=== PATIENT | female | born 1990 | race Caucasian/White ===

== ENCOUNTER → 2018-01-19 09:49 | Outpatient (CLI) | payer OTHER, SELFPAY ==
[2018-01-19 11:29] LABS: hCG Titer Quant., Serum 218 mIU/mL (<9 non-preg)
== END ==
PROVIDERS: Visit Provider Obstetrics & Gynecology
DX: N92.6 Irregular menstruation, unspecified (principal)
CPT/HCPCS: 36415; 84702

== ENCOUNTER → 2018-01-22 09:07 | Outpatient (CLI) | payer OTHER, SELFPAY ==
[2018-01-22 13:01] LABS: hCG Titer Quant., Serum 655 mIU/mL (<9 non-preg)
== END ==
PROVIDERS: Visit Provider Obstetrics & Gynecology
DX: O20.0 Threatened abortion (principal); Z3A.00 Weeks of gestation of pregnancy not specified
CPT/HCPCS: 36415; 84702

== ENCOUNTER → 2018-03-20 09:03 | Outpatient (CLI) | payer OTHER, SELFPAY ==
[2018-03-20 11:42] LABS: Free T3 3.2 pg/mL (2.18-3.98); T4 Free Direct 1.02 ng/dL (0.76-1.46); Thyroid Stim Hormone (TSH) 1.11 uIU/mL (0.358-3.74)
[2018-03-20 11:45] LABS: Progesterone Level 7.35 ng/mL (See Comment)
== END ==
PROVIDERS: Visit Provider Obstetrics & Gynecology
DX: Z51.89 Encounter for other specified aftercare (principal)
CPT/HCPCS: 36415; 84144; 84439; 84443; 84481

== ENCOUNTER → 2018-06-17 16:46 | Outpatient (CLI) | payer OTHER, SELFPAY ==
[2018-06-17 16:35] VITALS: BMI 25.0
--- NOTE | 2018-06-17 16:48 | RAD_ITS ---
STUDY: X-RAY - FACIAL BONES REASON FOR STUDY: Female, 28 years old. Trauma TECHNIQUE: 3 view(s) of the facial bones. COMPARISON: None. FINDINGS: Normal bilateral frontozygomatic and zygomatic-temporal arches. Normal bilateral medial and inferior orbital kelly. Normal bilateral orbits. Normal visualized nasal bones. Normal anterior nasal spine. The remaining visualized osseous structures are normal. Normal visualized paranasal sinuses. RAD/Facial Bones min 3 Views IMPRESSION: Normal x-ray examination of the facial bones. Electronically Signed: Tato Beverly MD at 17:35 EST , Service support ,
--- OUTSIDE RECORDS SUMMARY | 2018-08-13 02:54 | XMS RPT_ITS ---
:1990 Author Organization OHIP Care Team Providers Name Role Phone LEODAN TAVERAS III Attending Unavailable Erendira-Jewel, Summer Attending Unavailable Krishna-Jewel, Summer Attending Unavailable Krishna-Jewel, Summer Attending Unavailable Erendira-Jewel, Summer Attending Unavailable Cebul III, Leodan Primary Care Unavailable Albaro Lopez Attending Unavailable Cebul III, Leodan Referring Unavailable Albaro Lopez Attending Unavailable Albaro Lopez Referring Unavailable Cebul III, Leodan Primary Care Unavailable PROBLEMS PROBLEMS DATE TYPE CONDITION / CODE ATTENDING STATUS SOURCE 06/17/2018 Unknown S00.33XA - Albaro Lopez Active [place] [facility] of [facility] nose, initial Hospital encounter / Repository S00.33XA(ICD-10) 04/28/2018 Unknown Z51.89 - Erendira-Jewel, Active [place] Encounter for [facility] other specified Hospital aftercare / Repository Z51.89(ICD-10) 04/28/2018 Unknown O20.0 - Krishna-Jewel, Active [place] Threatened [facility] / Hospital O20.0(ICD-10) Repository 01/27/2018 Unknown N92.6 - Irregular Krishna-Jewel, Active [place] menstruation, [facility] unspecified / Hospital N92.6(ICD-10) Repository PROCEDURES PROCEDURES No Procedure Records FoundRESULTS RESULTS URGENT CARE VISIT Observed: 06/17/2018 Status: F Source: [place] REPORT 5:21 PM [facility] [address] [place] [address] [address] [place] [address] OFFICE VISIT Date of Service: 06/17/18 MR#: [id number] Acct: [id number] Name: KIKO ANNE Rep #: [id number] : 1990 Provider: Albaro GRACIA Age/Sex: 28/F Location[place] [facility] [place] Status: Signed Intake Vital Signs06/17/18 Height 5 ft 2 in Intake Visit Reasons: NOSE INJURY/ FROM DOG Chief Complaint: Injured nose 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 Patient states yesterday while at home her dog jumped up with his face hitting the bridge of her nose. She noted no LOC or nausea or vomiting or nosebleeds at the time of the injury or since. She notes no complaints of neck pain or paresthesias to upper extremities. She notes a small ecchymosis and swelling to the left nasal bridge and is concerned that may be fractured. She otherwise feels fine. She has taken no jexh-wvw-vwbednr products to assist with symptoms. She notes no other associated symptoms no other alleviating or aggravating factors. ROS Const Constitutional: No other (ROS negative x10 other than as noted above) Exam Const General: cooperative, healthy appearing, no acute distress, comfortable Nutritional Appearance: average body habitus Orientation: alert, awake, oriented x3 HENMT Head: normal to inspection Ears: hearing grossly normal bilaterally, external ears normal, TM's normal bilaterally, EAC's normal Nose: external nose normal (Except trace ecchymosis swelling to left lateral nose), nares normal, septum normal, no nasal discharge Face and sinus: normal facial exam, sinuses nontender, face symmetric Throat: no postnasal drainage Other: Facial radiographs taken today reveal no acute fractures per my review, pending radiologist interpretation at the time of this dictation; these results were reviewed with patient in office today and she acknowledges understanding. Eyes General: appearance normal, both eyes and all related structures Neck Neck: normal visual inspection, full ROM Chest Chest palpation AND inspection: normal inspection of the chest Resp Effort AND Inspection: normal respiratory effort, able to speak in complete sentences, symmetric chest movement, no cough Cardio Rate: regular rate Pulses: radial pulses present Skin General: no rashes or lesions noted (See HEENT exam above) Neuro General: alert, awake, oriented x3, gait normal Cognition: normal cognition Speech: speech normal Gait: normal gait Motor: muscle tone normal throughout Sensory Exam: no sensory deficits noted Psych Appearance: grossly normal Mental Status: mental status grossly normal Mood: congruent mood Affect: normal affect Speech and Movement: speech and movement normal Attitude: cooperative Thought Process: normal Thought Content: normal Judgment: judgment good Assessment AND Plan Problems 1. Contusion, nose S00.33XA Plan Facial radiographs taken today reveal no acute fractures per my review, pending radiologist interpretation at the time of this dictation; these results were reviewed with patient in office today and she acknowledges understanding. Rest, ice, Advil/Tylenol as needed for symptomatic relief. Follow-up with ENT in 5-7 days should symptoms persist or any other concerns develop. Patient states acknowledging understanding all the above. This note was generated with [employer] dictation software. It may contain incorrect words, spelling, and punctuation that were not noted in checking the note before signing. Orders Orders: Coding Level of Care Code Off vis,est,level 4 Diagnoses Contusion, nose S00.33XA 06/17/18 1721 <Electronically signed by Albaro GRACIA> Date Albaro GRACIA Cosigner Signature: Date (if applicable) CC: FACIAL BONES MIN 3 Observed: 06/17/2018 Status: F Source: [place] VIEWS 4:48 PM [facility] Imaging Services [address] [place] [address] Facial Bones min 3 Views MR#: [id number] Acct: [id number] Name: KIKO ANNE Rep #: [id number] : 1990 F 28 From: Tato Beverly MD PCP: Leodan Taveras III, MD Status: REG CLI Study: Facial Bones min 3 Views Date of Exam: 06/17/18 Exam# [id number] Ordering Dr: Albaro Lopez STUDY: X-RAY - FACIAL BONES REASON FOR STUDY: Female, 28 years old. Trauma TECHNIQUE: 3 view(s) of the facial bones. COMPARISON: None. FINDINGS: Normal bilateral frontozygomatic and zygomatic-temporal arches. Normal bilateral medial and inferior orbital kelly. Normal bilateral orbits. Normal visualized nasal bones. Normal anterior nasal spine. The remaining visualized osseous structures are normal. Normal visualized paranasal sinuses. RAD/Facial Bones min 3 Views IMPRESSION: Normal x-ray examination of the facial bones. Electronically Signed: Tato Beverly MD at 17:35 EST , Service support , CC: Leodan Taveras III, MD; Albaro GRACIA Mail List Librarian: Signed PROGRESS Observed: 05/07/2018 Status: COMPLETED Source: [place] 4:[address] [facility] RE[facility] HNO ID: [id number] Author: Leodan Taveras III Service: (none) Author Type: Physician Type: Progress Notes Filed: 05/07/2018 6:50 PM Note Text: SUBJECTIVE: This is a 28 year old female that is here today for Chronic Medical Conditions. Exercise/cold induced asthma. 2. She had a miscarriage in January. 3. Labs from [facility] obtained 03/20/18 reviewed including the following TSH 1.11 free T3 3.2 T4 free direct 1.02 progesterone 7.35 PAST MEDICAL HISTORY Diagnosis Date - Reactive airway disease 04/26/2011 SOB with URIs Current Outpatient Prescriptions on File Prior to Visit: albuterol HFA (PROAIR HFA) 90 mcg/actuation inhaler Inhale 2 Puffs as instructed every 6 hours as needed. tretinoin (RETIN-A) 0.05 % cream Apply 1 application to affected area daily at bedtime. tetracycline (SUMYCIN) 250 mg capsule Take 1 capsule by mouth four times daily. (Patient not taking: Reported on 05/07/2018 ) levonorgestrel (MIRENA) 20 mcg/24 hr (5 years) IUD Inserted in office (Patient not taking: Reported on 05/07/2018 ) No current facility-administered medications on file prior to visit. FAMILY HISTORY Problem Relation Age of Onset - Thyroid Mother - Hypertension Mother - Hypertension Father - Hypertension Maternal Grandmother - Coronary Artery Disease Maternal Grandmother - Hypertension Maternal Grandfather - Hypertension Paternal Grandmother - Diabetes Paternal Grandmother - Cancer Paternal Grandmother - Hypertension Paternal Grandfather Social History Substance Use Topics - Smoking status: Never Smoker - Smokeless tobacco: Never Used - Alcohol use No BP 101/82 Pulse 72 Resp 16 Wt 59.9 kg (132 lb) LMP 04/25/2018 (Exact Date) BMI 23.54 kg/m? OBJECTIVE: APPEARANCE Well appearing, alert, in no acute distress, well-hydrated, well nourished. NECK Supple, no adenopathy; thyroid symmetric, normal size, no bruits HEART RRR with normal S1 and S2, no murmurs, no gallops, no JVD appreciated LUNG clear to auscultation SKIN facial acne ASSESSMENT: acute exacerbation of asthma PLAN: continue to use proair inhaler 1-2 puffs every 4 hrs as needed for wheezing/asthma. call office if needed MARION Tinsley MD, III MD CNOV Observed: 05/07/2018 Status: COMPLETED Source: [place] 4:20 PM [facility] KIKO ANNE ([id number]) 1990 F Date Time Provider Department 05/07/18 4:20 PM LEODAN TAVERAS III During your visit today, we recorded the following information about you: Pulse Respiration Blood pressure Weight 72/minute 16/minute 101/82 59.9 kg Last Period 04/25/18 Leodan Taveras III MD 05/07/2018 6:50 PM Signed SUBJECTIVE: This is a 28 year old female that is here today for Chronic Medical Conditions. Exercise/cold induced asthma. 2. She had a miscarriage in January. 3. Labs from [facility] obtained 03/20/18 reviewed including the following TSH 1.11 free T3 3.2 T4 free direct 1.02 progesterone 7.35 PAST MEDICAL HISTORY Diagnosis Date - Reactive airway disease 04/26/2011 SOB with URIs Current Outpatient Prescriptions on File Prior to Visit: albuterol HFA (PROAIR HFA) 90 mcg/actuation inhaler Inhale 2 Puffs as instructed every 6 hours as needed. tretinoin (RETIN-A) 0.05 % cream Apply 1 application to affected area daily at bedtime. tetracycline (SUMYCIN) 250 mg capsule Take 1 capsule by mouth four times daily. (Patient not taking: Reported on 05/07/2018 ) levonorgestrel (MIRENA) 20 mcg/24 hr (5 years) IUD Inserted in office (Patient not taking: Reported on 05/07/2018 ) No current facility-administered medications on file prior to visit. FAMILY HISTORY Problem Relation Age of Onset - Thyroid Mother - Hypertension Mother - Hypertension Father - Hypertension Maternal Grandmother - Coronary Artery Disease Maternal Grandmother - Hypertension Maternal Grandfather - Hypertension Paternal Grandmother - Diabetes Paternal Grandmother - Cancer Paternal Grandmother - Hypertension Paternal Grandfather Social History Substance Use Topics - Smoking status: Never Smoker - Smokeless tobacco: Never Used - Alcohol use No BP 101/82 Pulse 72 Resp 16 Wt 59.9 kg (132 lb) LMP 04/25/2018 (Exact Date) BMI 23.54 kg/m? OBJECTIVE: APPEARANCE Well appearing, alert, in no acute distress, well- hydrated, well nourished. NECK Supple, no adenopathy; thyroid symmetric, normal size, no bruits HEART RRR with normal S1 and S2, no murmurs, no gallops, no JVD appreciated LUNG clear to auscultation SKIN facial acne ASSESSMENT: acute exacerbation of asthma PLAN: continue to use proair inhaler 1-2 puffs every 4 hrs as needed for wheezing/asthma. call office if needed MARION Tinsley MD, III MD Frank A Cebul, III MD 05/07/2018 4:57 PM Signed PLAN: continue to use proair inhaler 1-2 puffs every 4 hrs as needed for wheezing/asthma. call office if needed Leodan Taveras III MD Referring Provider: SELF [200] Allergies As of Date: 05/07/2018 Noted Allergy Reaction MINOCYCLINE 05/13/2016 8 - GI Upset Comments: Nausea and dizziness Date Reviewed: 05/07/2018 Reviewed by: Kate ([facility]) HILARIA Lincoln - Fully Assessed Reason for Visit: Medication Follow-up [270] Primary Visit Diagnosis:Mild intermittent asthma with acute exacerbation [J45.21] Prescriptions as of 05/07/2018 Sig: PROGESTERONE VAGINAL Use vaginally. During cycles * ALBUTEROL SULFATE HFA 90 MCG/* Inhale 2 Puffs as instructed * TRETINOIN 0.05 % TOPICAL CREAM Apply 1 application to affect* TETRACYCLINE 250 MG CAPSULE Take 1 capsule by mouth four * Patient not taking: Reported on 05/07/2018 LEVONORGESTREL 20 MCG/24 HR (* Inserted in office Patient not taking: Reported on 05/07/2018 Problem List As Of Date 05/07/2018 Noted Resolved Reactive airway disease [J45.909] INVALID FOR* Acne [L70.9] INVALID FOR* Irregular menstrual cycle [N92.6] INVALID FOR*04/23/2016 Anxiety [F41.9] INVALID FOR* Other instructions from your clinician: PLAN: continue to use proair inhaler 1-2 puffs every 4 hrs as needed for wheezing/asthma. call office if needed Leodan Taveras III MD Encounter Status:Closed by LEODAN TAVERAS III, MD on 05/07/18 FREE T3 Collected: 03/20/2018 Status: F Source: [place]UAN 9:06 AM [facility] TYPE CODE TESTS RESULT OUT OF RANGE REFERENCE UNITS LAB L501.59159 2.18-3.98 pg/mL Normal FREE T3 3.2 Performed By: #### L501.15355, L501.9520, L506.0400 #### [facility] [address] [place], [address] THYROID STIM HORMONE Collected: 03/20/2018 Status: F Source: JUAN (TSH) 9:06 AM [facility] TYPE CODE TESTS RESULT OUT OF RANGE REFERENCE UNITS LAB L501.9520 0.358-3.74 uIU/mL Normal TSH 1.11 Performed By: #### L501.15847, L501.9520, L506.0400 #### [facility] [address] [place], [address] T4 FREE DIRECT Collected: 03/20/2018 Status: F Source: JUAN 9:06 AM [facility] TYPE CODE TESTS RESULT OUT OF RANGE REFERENCE UNITS LAB L506.0400 0.76-1.46 ng/dL Normal T4 FREE 1.02 DIRECT Performed By: #### L501.66118, L501.9520, L506.0400 #### [facility] [address] [place], [address] PROGESTERONE LEVEL Collected: 03/20/2018 Status: F Source: JUAN 9:06 AM [facility] TYPE CODE TESTS RESULT OUT OF REFERENCE UNITS RANGE LAB L509.4001 See Comment ng/mL Progesterone Normal 7.35 Result Comment: Progesterone Reference Table: UNITS Female: Follicular 0.15 - 1.40 ng/mL Luteal 3.34 - 25.56 ng/mL Mid-luteal 4.44 - 28.03 ng/mL Postmenopausal 0.0 - 0.73 ng/mL : 1st Trimester 11.22 - 90.00 ng/mL 2nd Trimester 25.55 - 89.40 ng/mL 3rd Trimester 48.40 -422.50 ng/mL Performed By: #### L509.4001 #### [facility] [address] [place], [address] HCG TITER QUANT., Collected: 01/22/2018 Status: F Source: JUAN SERUM 9:00 AM [facility] TYPE CODE TESTS RESULT OUT OF RANGE REFERENCE UNITS LAB L700.8000 <9 non-preg mIU/mL High HCG 655 QUANT. Performed By: #### L700.8000 #### [facility] [address] [place], [address] HCG TITER QUANT., Collected: 01/19/2018 Status: F Source: JU[place] SERUM 9:56 AM [facility] TYPE CODE TESTS RESULT OUT OF RANGE REFERENCE UNITS LAB L700.8000 <9 non-preg mIU/mL High HCG 218 QUANT. Performed By: #### L700.8000 #### [facility] [address] [place], [address] ALLERGIES ALLERGIES DATE TYPE / CODE NAME / CODE REACTION SEVERITY SOURCE 06/17/2018 Drug No Known Unknown [place] Allergy/416 Allergies/[id number] [facility] 185471(SN 88(RXNORM) Hospital ED CT) Repository 05/13/2016 DRUG MINOCYCLINE GI UPSET [facility] INGREDI/[address] 639672(SNOM Repository ED CT) ENCOUNTERS ENCOUNTERS ADMIT/DISCHARGE ACCOUNT ADMITTING ENCOUNTER LOCATION SOURCE NUMBER CLASS 06/17/2018 [id number] Ambulatory [facility] ing:MTRAD Repository 06/17/2018/06/17/20 [id number] [facility] [address] Repository 05/07/2018/05/11/20 [id number] Ambulatory [address] Repository 03/20/2018 [id number] [facility] ing:WOBLAB Repository 01/22/2018 [id number] [facility] ing:WOBLAB Repository 01/21/2018 [id number] [facility] ing:LAB Repository 01/19/2018 [id number] [facility] ing:WOBLAB Repository PAYERS PAYERS ENCOUNTER GUARANTOR PAYER SUBSCRIBER SOURCE 06/17/2018 KIKO SAVANNA [facility] [place] [id number] Insurance:Stephany LENZB: Critical access hospital [place]: [id number] [id number] Repository [address]Zfp: ([phone]) Date:0798-58-76NM [phone] () [place] [address]TK: 06/17/2018 Secondary NOT GIVENUNK [place] Insurance:SELF PAY [facility] Number: Effective Repository Date:2018-06-17 06/17/2018 KIKO SAVANNA [facility] [place] [id number] Insurance:CIGNAPolicy CARMELDOB: Critical access hospital Number: [id number], [place] [id number] Repository [address]Kfm: (330) Date:4469-53-87BB [phone] (HP) [place] [address]HV: 06/17/2018 Secondary NOT GIVENUNK [place] Insurance:SELF PAY [facility]: Effective Repository Date:2018-06-17 03/20/2018 KIKO SAVANNA Primary KIKO CORRALES [place] [id number] Insurance:CIGNAPolicy CARMELDOB: Critical access hospital Number: [id number], [place] [id number] Repository [address]Dkv: ([phone]) Date:4822-94-13BE [phone] (HP) [place] [address]MM: 03/20/2018 Secondary NOT GIVENUNK Juan Insurance:SELF PAY [facility] Number: Effective Repository Date:2018-03-20 01/22/2018 [facility] [place] [id number] Insurance:CIGNAPolicy CARMELDOB: Critical access hospital Number: [id number], [place] [id number] Repository [address]Jwj: ([phone]) Date:3573-42-99TO [phone] (HP) 745573AOXZSFXAHJL, [place] [address]RA: 01/22/2018 Secondary NOT GIVENUNK [place] Insurance:SELF PAY [facility] Number: Effective Repository Date:2018-01-22 01/21/2018 [facility] KIKO Martinez [id number] Insurance:CIGNAPolicy CARMELDOB: Critical access hospital Number: [id number], [place] [id number] Repository [address]Dfr: ([phone]) Date:3560-82-61WD [phone] (HP) [place] [address]XE: 01/21/2018 Secondary NOT GIVENUNK [place] Insurance:SELF PAY [facility] Number: Effective Repository Date:2018-01-21 01/19/2018 KIKO CORRALES [place]arl[place] KIKO Martinez [id number] Insurance:Stephany ANNEDOB: Critical access hospital Number: [id number], [place] [id number] Repository [address]Edn: ([phone]) Date:7531-15-48DU [phone] () [id number] [address]SK: 01/19/2018 Secondary NOT GIVENUNK [place] Insurance:SELF PAY [facility] Number: Effective Repository Date:2018-01-19
== END ==
PROVIDERS: Family Provider Family Medicine; PCP Family Medicine; Referring Provider Physician Assistant; Visit Provider Physician Assistant
DX: S00.33XA Contusion of nose, initial encounter (principal)
CPT/HCPCS: 70150

== ENCOUNTER → 2018-10-19 13:33 | Outpatient (CLI) | payer OTHER, SELFPAY ==
[2018-06-17 16:35] VITALS: BMI 25.0
[2018-10-19 18:11] LABS: Progesterone Level 8.25 ng/mL (See Comment)
== END ==
PROVIDERS: Family Provider Family Medicine; PCP Family Medicine; Visit Provider Obstetrics & Gynecology
DX: E28.8 Other ovarian dysfunction (principal); N97.0 Female infertility associated with anovulation
CPT/HCPCS: 36415; 84144

== ENCOUNTER 2018-10-29 19:49 | Emergency (ER) | payer OTHER, SELFPAY ==
[2018-06-17 16:35] VITALS: BMI 25.0
[2018-10-29 19:51] VITALS: BP 128/83; PULSE 75; RESP 18; TEMP 36.7; O2SAT 100; BMI 25.0
--- NOTE | 2018-10-29 19:59 | CT_ITS ---
STUDY: CT BRAIN WITHOUT CONTRAST REASON FOR EXAM: Female, 28 years old. Headache RADIATION DOSAGE (If Supplied By Facility): CTDIvol = ( 44.99 ) mGy, DLP = ( 745.49 ) mGycm TECHNIQUE: Transaxial CT imaging of the brain was performed without administration of intravenous contrast material. Individualized dose optimization techniques were used for this CT. COMPARISON: No relevant priors. FINDINGS: Normal soft tissue structures. Normal calvarium. Normal size ventricles and extra-axial spaces for the patient's age. Normal white matter tracts of the cerebral hemispheres. Normal basal ganglia and thalami. Normal brainstem. Normal cerebellum. There is no intracranial hemorrhage. There are no findings of an acute ischemic infarction. Normal visualized paranasal sinuses. CT/Brain/Head without Contrast IMPRESSION: Normal unenhanced CT scan of the brain. Electronically Signed: Margaret Crandall MD at 20:43 EDT , Service support ,
--- NOTE | 2018-10-29 20:01 | ED.VISSUMM ---
- ER Visit Summary Date of Service: 10/29/18 Chief Complaint: [] History of Present Illness: The patient is a 28 F headache presents to the emergency department headache. Patient was in her normal state of health. She states about 2 hours ago, she had a rather sudden onset headache. States is right-sided behind her eye. She describes a burning across her face. She did have a similar headache about 2 weeks ago that went away on its own. The patient denies any history of migraine. She denies any fevers or chills. She denies any recent trauma. She is currently on infertility medication of progesterone, but has not taken it recently. She denies any neck pain. She denies any weakness or numbness. Physical Examination: Well-appearing patient is in no acute distress. Head is normocephalic, atraumatic. Pupils equal round reactive, extraocular muscles intact. There is no temporal artery tenderness. There is no vesicular rash. Neck supple. Kernig's and Brudzinski's are negative. Heart regular rate and rhythm. Lungs clear, chest nontender. Abdomen soft, nontender, nondistended. Neuro exam displays no focal or lateralizing deficit. 2+ symmetric lower extremity reflexes. No clonus. No ataxia or gait abnormality. Test Results: [] Emergency Department Course and Treatment: The patient is not meningitic or encephalopathic. There is a family history of migraines, but she states that she is never really had one. I did obtain a noncontrast head CT. This is unremarkable. As her headache had started within the past 6 hours, I do feel that this effectively rules her out for subarachnoid. I do not feel that lumbar puncture is necessary. The patient was treated with migraine abortive medications and given Toradol once her noncontrast head CT was normal. She had total resolution of her headache. She is lying in the room smiling easily. I did obtain a CTA though to rule out aneurysm. This is also unremarkable. The patient has had total resolution of symptoms, normal neurologic examination, and normal imaging I do feel that she is safe for outpatient therapy. She is comfortable with this plan of care.] Treatment Plan: [] Disposition: Discharge Impression: 1. Migraine headache This note was generated with [employer] dictation software. It may contain incorrect words, spelling, and punctuation that were not noted in review of the chart prior to signing ED Disposition - Plan for ED Patient: Instructions: ED Headache Migraine Prescriptions: Acetaminophen/Butalbital/Caffe [Fioricet] 1 tab PO Q4H PRN PRN #12 tab PRN Reason: Headache Ondansetron [Zofran Odt] 4 mg PO Q8H PRN PRN #10 tab PRN Reason: Nausea Referrals: Leodan Taveras III, MD [Primary Care Provider] -
[2018-10-29] MEDS: 0.9% Normal Saline 1,000 ML 999 ML IV (20:13)
[2018-10-29] MEDS: proCHLORPERazine 10 MG/2 ML Vial IV (20:13)
[2018-10-29] MEDS: DiphenhydrAMINE 50 MG/ML Syringe IV (20:13)
--- NOTE | 2018-10-29 20:29 | CT_ITS ---
STUDY: CTA OF THE BRAIN REASON FOR EXAM: Female, 28 years old. Headache. AneurysmSCTA - Head RADIATION DOSAGE (If Supplied By Facility): CTDIvol = ( 14.60 ) mGy, DLP = ( 415.06 ) mGycm TECHNIQUE: CT angiography was performed with a multi-detector CT scanner. Data acquisition was obtained from the skull base through the vertex following intravenous administration of 100ML IV Isovue 300. MIP images were reconstructed from the axial data set. Post-processing of the angiographic images was performed, with multiplanar reformation and 3D reconstruction. Individualized dose optimization techniques were used for this CT. COMPARISON: None. FINDINGS: Normal bilateral petrous carotid arteries. Normal right cavernous carotid artery with a normal supraclinoid bifurcation. Normal left cavernous carotid artery with a normal supraclinoid bifurcation. Normal right A1 segments of the anterior cerebral artery. Normal left A1 segments of the anterior cerebral artery. Normal intact anterior communicating artery (ACOM). Normal bilateral A2 segments of the anterior cerebral arteries. Normal right M1 and M2 segments of the middle cerebral arteries, with a normal M1 bifurcation. Normal left M1 and M2 segments of the middle cerebral arteries, with a normal M1 bifurcation. There is non-visualization of the right posterior communicating artery (PCOM). There is non-visualization of the left posterior communicating artery (PCOM). Normal bilateral vertebral arteries. Normal basilar artery with a normal basilar bifurcation. The visualized bilateral superior cerebellar (SCA) arteries are normal. Normal bilateral P1, P2 and visualized P3 segments of the posterior cerebral arteries. There is no demonstrated aneurysm of the paimiut of [place]. There is no demonstrated abnormality of the visualized brain. CT/CTA Head W/WO Contrast IMPRESSION: Normal paimiut of [place] without a demonstrated aneurysm or hemodynamically significant stenosis. Electronically Signed: Margaret Crandall MD at 21:27 EDT , Service support ,
[2018-10-29 20:32] LABS: Absolute Lymphocyte Count 3.28 X10^3/ul (0.83-4.51); Absolute Neutrophil Count 3.8 X10^3/uL (2.0-7.7); Basophil# 0.03 X10^3/uL; Basophil% 0.4 % (0-1); Eosinophils% 1.3 % (0-5); Hematocrit 37.9 % (37-47); Hemoglobin 12.8 g/dl (12.0-15.0); Lymphocyte # 3.28 X10^3/ul (4.0); Lymphocyte % 41.6 % (19-41); Mean Corp Hgb Conc 33.8 g/gl (32-36); Mean Corpuscular Hgb 30.7 pg (27.0-32.0); Mean Corpuscular Volume 90.9 fL (81-99); Mean Platelet Vol. 12.1 fl (6.2-12.0); Monocyte# 0.68 X10^3/uL; Monocyte% 8.6 % (0-10); Neutrophil # 3.79 X10^3/uL (2.7-7.7); Platelet Count 251 K/mm3 (150-450); RBC Distribution Width SD 38.9 fl (35.1-43.9); Red Blood Count 4.17 M/mm3 (4.2-5.4); White Blood Count 7.9 K/mm3 (4.4-11.0)
[2018-10-29 20:34] LABS: POSITIVE COUNT NO; POSITIVE DIFFERENTIAL NO; POSITIVE MORPHOLOGY NO
[2018-10-29 20:45] LABS: Anion Gap 7 (5-15); BUN 9 mg/dL (7-18); BUN/Creat Ratio 9.8 RATIO (10-20); Calcium,Total 8.7 mg/dL (8.5-10.1); Chloride 104 mmol/L (98-107); Creatinine, Serum 0.92 mg/dL (0.55-1.02); EST Glomerular Filtration Rate 78 mL/min (>60); Est Glom Filt Rate - Afr Amer 94 mL/min (>60); Estimated Creatinine Clearance 72.65 ml/min; Glucose 106 mg/dL (74-106); Potassium 3.4 mmol/L (3.5-5.1); Sodium Level 139 mmol/L (136-145)
[2018-10-29 21:31] VITALS: BP 122/78; PULSE 72; RESP 16; O2SAT 98
[2018-10-29] MEDS: Ketorolac 30 MG/ML Syringe IV (21:33)
== END 2018-10-29 21:51 | disposition home or self-care (01) ==
LOC: ED 20:32
PROVIDERS: Emergency Provider Emergency Medicine; Family Provider Family Medicine; PCP Family Medicine
DX: G43.909 Migraine, unspecified, not intractable, without status migrainosus (principal)
CPT/HCPCS: 70450; 70496; 80048; 85025; 96361; 96374; 96375; 99283; J7030; Q9967; A4216

== ENCOUNTER → 2019-04-07 15:32 | Outpatient (CLI) | payer OTHER, SELFPAY ==
[2019-04-07 17:16] LABS: hCG Titer Quant., Serum 3567 mIU/mL (1-3)
[2019-04-09 12:13] LABS: Progesterone Level 10.88 ng/mL (See Comment)
== END ==
PROVIDERS: Visit Provider Obstetrics & Gynecology
DX: N91.2 Amenorrhea, unspecified (principal)
CPT/HCPCS: 36415; 84144; 84702

== ENCOUNTER → 2019-04-20 17:28 | Outpatient (CLI) | payer OTHER, SELFPAY ==
[2019-04-20 22:18] LABS: Chlamydia Trachomatis by PCR Negative (Negative); Neisserai gonorrhoeae by PCR Negative (Negative); Probe Check PASS; Sample Adequacy Control PASS; Specimen Processing Control PASS
== END ==
PROVIDERS: Visit Provider Obstetrics & Gynecology
DX: Z11.3 Encounter for screening for infections with a predominantly sexual mode of transmission (principal); Z34.81 Encounter for supervision of other normal pregnancy, first trimester
CPT/HCPCS: 87491; 87591

== ENCOUNTER → 2019-05-10 11:46 | Outpatient (CLI) | payer OTHER, SELFPAY ==
[2019-05-10 14:31] LABS: Color, Urine Yellow (Yellow); Glucose, Dipstick Normal (Normal); Ketone-Dipstick Negative (Negative); Leukocyte Esterase-Dipstick Negative /ul (Negative); Nitrite-Dipstick Negative (Negative); Occult Blood-Urine Negative /ul (Negative); Protein-Dipstick Negative (Negative); Urine Bilirubin Dipstick Negative (Negative); Urine Clarity Sl. Cloudy (Clear); Urine Urobilinogen Normal (Normal)
[2019-05-10 14:32] LABS: Absolute Lymphocyte Count 1.68 X10^3/uL (0.83-4.51); Absolute Neutrophil Count 5.3 X10^3/uL (2.0-7.7); Basophil# 0.05 X10^3/uL; Basophil% 0.7 % (0-1); Eosinophil# 0.05 X10^3/uL; Eosinophils% 0.7 % (0-5); Hematocrit 37.4 % (37-47); Hemoglobin 12.8 g/dL (12.0-15.0); Lymphocyte # 1.68 X10^3/ul (4.0); Lymphocyte % 22.1 % (19-41); Mean Corp Hgb Conc 34.2 g/dL (32-36); Mean Corpuscular Volume 93.5 fL (81-99); Monocyte% 6.6 % (0-10); NRBC Flagged by Analyzer 0 % (0-5); Neutrophil # 5.29 X10^3/uL (2.7-7.7); Neutrophil % 69.6 % (47-70); Platelet Count 264 K/mm3 (150-450); RBC Distribution Width CV 12.4 % (11.6-14.6); RBC Distribution Width SD 42.6 fl (35.1-43.9); White Blood Count 7.6 K/mm3 (4.4-11.0)
[2019-05-10 14:48] LABS: Amphetamine Urine VISTA NEGATIVE (<1000 ng/mL); Barbiturate Urine VISTA NEGATIVE (< 200 ng/mL); Benzodiazepine Urine VISTA NEGATIVE (< 200 ng/mL); Cocaine Urine VISTA NEGATIVE (< 300 ng/mL); Ecstacy Urine VISTA NEGATIVE (< 500 ng/mL); Methadone Urine VISTA NEGATIVE (< 300 ng/mL); PCP Urine VISTA NEGATIVE (< 25 ng/mL); THC Urine VISTA NEGATIVE (< 50 ng/mL); Vista UDS pH Range 6
[2019-05-11 09:40] LABS: HIV - WCH Non-Reactive (Nonreactive); Hepatitis B Surface Antigen Non-Reactive (Nonreactive); Hepatitis C Antibody Non-Reactive (Nonreactive); Vitamin D,25 Hydroxy 11.6 ng/mL (29.95-100.01)
[2019-05-14 02:37] LABS: Prenatal RPR NONREACTIVE (NONREACTIVE)
== END ==
PROVIDERS: Visit Provider Obstetrics & Gynecology
DX: Z34.81 Encounter for supervision of other normal pregnancy, first trimester (principal)
CPT/HCPCS: 36415; 80307; 81002; 82306; 84443; 85025; 86703; 86762; 86803; 87340

== ENCOUNTER → 2019-09-27 10:11 | Outpatient (CLI) | payer OTHER, SELFPAY ==
[2019-09-27 10:48] LABS: Hematocrit 33.3 % (37-47); Hemoglobin 11.1 g/dL (12.0-15.0); Mean Corp Hgb Conc 33.3 g/dL (32-36); Mean Corpuscular Hgb 31.1 pg (27.0-32.0); Mean Corpuscular Volume 93.3 fL (81-99); Mean Platelet Vol. 11.9 fl (6.2-12.0); Platelet Count 231 K/mm3 (150-450); RBC Distribution Width CV 12.2 % (11.6-14.6); RBC Distribution Width SD 41.2 fl (35.1-43.9); Red Blood Count 3.57 M/mm3 (4.2-5.4); White Blood Count 8.6 K/mm3 (4.4-11.0)
[2019-09-27 11:15] LABS: Glucose Challenge Gest 1H 50g 145 mg/dL (70-140)
[2019-09-27 11:22] LABS: Vitamin D,25 Hydroxy 11.3 ng/mL
== END ==
PROVIDERS: Visit Provider Obstetrics & Gynecology
DX: Z34.83 Encounter for supervision of other normal pregnancy, third trimester (principal); E55.9 Vitamin D deficiency, unspecified
CPT/HCPCS: 36415; 82306; 82950; 85027

== ENCOUNTER → 2019-10-01 06:34 | Outpatient (CLI) | payer OTHER, SELFPAY ==
[2019-10-01 07:41] LABS: Glucose GTT-Gestation. Fasting 71 mg/dL (<105)
== END ==
PROVIDERS: PCP Family Medicine; Referring Provider Obstetrics & Gynecology; Visit Provider Obstetrics & Gynecology
DX: Z36.83 Encounter for fetal screening for congenital cardiac abnormalities (principal); O99.810 Abnormal glucose complicating pregnancy; Z3A.00 Weeks of gestation of pregnancy not specified
CPT/HCPCS: 36415; 82951; 82952

== ENCOUNTER → 2019-10-07 06:54 | Outpatient (CLI) | payer OTHER, SELFPAY ==
[2019-10-07 07:33] LABS: Glucose GTT-Gestation. Fasting 76 mg/dL (<105)
== END ==
PROVIDERS: PCP Family Medicine; Referring Provider Obstetrics & Gynecology; Visit Provider Obstetrics & Gynecology
DX: O99.810 Abnormal glucose complicating pregnancy (principal); Z36.9 Encounter for antenatal screening, unspecified; Z3A.00 Weeks of gestation of pregnancy not specified
CPT/HCPCS: 36415; 82951; 82952

== ENCOUNTER 2019-11-08 12:30 | Outpatient (RCR) | payer OTHER, SELFPAY | END 2019-11-08 23:59 | disposition home or self-care (01) | LOC: DC 12:30 | PROVIDERS: PCP Family Medicine; Visit Provider Obstetrics & Gynecology | DX: Z71.3 Dietary counseling and surveillance (principal); O24.419 Gestational diabetes mellitus in pregnancy, unspecified control; Z3A.00 Weeks of gestation of pregnancy not specified | CPT/HCPCS: 97802 ==

== ENCOUNTER → 2019-11-17 17:21 | Outpatient (CLI) | payer OTHER, SELFPAY | PROVIDERS: Visit Provider Obstetrics & Gynecology | DX: Z36.85 Encounter for antenatal screening for Streptococcus B (principal); Z34.83 Encounter for supervision of other normal pregnancy, third trimester | CPT/HCPCS: 87081 ==

== ENCOUNTER 2019-12-05 07:10 | Inpatient (IN) | payer OTHER, SELFPAY ==
[2019-12-05] VITALS (48 sets, daily range): BP systolic 96–151; BP diastolic 56–96; PULSE 47–97; RESP 18; TEMP 36.2–36.7; O2SAT 90–100
[2019-12-05] MEDS: Lactated Ringers 1,000 ML 50 ML IV (07:30)
[2019-12-05 07:51] LABS: Bedside Glucose 100 mg/dL (70-110)
[2019-12-05 07:55] LABS: Absolute Lymphocyte Count 2.83 X10^3/uL (0.83-4.51); Absolute Neutrophil Count 4.8 X10^3/uL (2.0-7.7); Basophil# 0.03 X10^3/uL; Basophil% 0.4 % (0-1); Eosinophil# 0.15 X10^3/uL; Eosinophils% 1.8 % (0-5); Hematocrit 32.6 % (37-47); Lymphocyte # 2.83 X10^3/ul (4.0); Lymphocyte % 33.9 % (19-41); Mean Corp Hgb Conc 33.7 g/dL (32-36); Mean Corpuscular Hgb 30.6 pg (27.0-32.0); Mean Corpuscular Volume 90.6 fL (81-99); Mean Platelet Vol. 13.5 fl (6.2-12.0); Monocyte# 0.52 X10^3/uL; Monocyte% 6.2 % (0-10); NRBC Flagged by Analyzer 0 % (0-5); Neutrophil # 4.81 X10^3/uL (2.7-7.7); Neutrophil % 57.5 % (47-70); POSITIVE MORPHOLOGY YES; Platelet Count 214 K/mm3 (150-450); RBC Distribution Width CV 13.4 % (11.6-14.6); RBC Distribution Width SD 43.7 fl (35.1-43.9); White Blood Count 8.4 K/mm3 (4.4-11.0)
[2019-12-05] MEDS: Oxytocin 30 units/NS 500 ml 30 UNITS/500 ML IV.SOLN IV (08:04)
[2019-12-05 08:40] LABS: Differential Indicated SCAN CRITERIA MET
[2019-12-05 08:41] LABS: Bedside Glucose 67 mg/dL (70-110)
[2019-12-05 08:41] LABS: Differential Comment SCANNED
--- NOTE | 2019-12-05 09:06 | PCM.HP.OB ---
- Problem List (1) 39 weeks gestation of Status: Acute (2) Gestational diabetes Status: Acute Qualifiers: Gestational diabetes mellitus control: diet-controlled Trimester: third trimester Qualified Code(s): O24.410 - Gestational diabetes mellitus in , diet controlled (3) SGA (small for gestational age), , affecting care of mother, antepartum Status: Acute Qualifiers: Fetus number: single or unspecified fetus Qualified Code(s): O36.5990 - Maternal care for other known or suspected poor growth, unspecified trimester, not applicable or unspecified History Date of Admission: 12/05/19 Final ANISA: 12/10/19 Gestational age: 39 Weeks and 2 Days History of this : This is a 29 year-old, G [2], P 0010, at 39 2/7 weeks gestational age hx GDMA1 and borderline SGA presents for scheduled induction of labor. Medical History: Medical History (This Medical Record has been edited. Action required.) Asthma J45.909 Surgical History: Surgical History (This Medical Record has been edited. Action required.) History of tonsillectomy Z90.89 Allergies No Known Allergies Allergy (Unverified 11/09/18 16:02) Smoking Status: Never smoker Alcohol: None Number of Fetus(es): 1 NST - FHR Rate Baby A Baseline: 135 Variability:: Moderate Accelerations:: 15 x 15 Decelerations:: None NST Reactive:: Yes, Appropriate for gestational age FHR Category:: Category I Uterine Activity:: 4/10 min History Past Pregnancies: Past Pregnancies Delivery Date Name GA/ Weeks Outcome Route Wt Sex Labor Length Anesthesia Delivery Location Provider FOB 12/2017 6 SAB Home Rod Labs: Mom's Labs & Results 12/05/19 12/05/19 12/05/19 07:30 07:30 07:38 WBC 8.4 RBC 3.60 L Hgb 11.0 L Hct 32.6 L MCV 90.6 MCH 30.6 MCHC 33.7 RDW Std Deviation 43.7 RDW Coeff of [place] 13.4 Plt Count 214 MPV 13.5 H Immature Gran % (Auto) 0.200 Neut % (Auto) 57.5 Lymph % (Auto) 33.9 [place] % (Auto) 6.2 Eos % (Auto) 1.8 Baso % (Auto) 0.4 Absolute Neuts (auto) 4.8 Absolute Lymphs (auto) 2.83 Nucleated RBC % 0 Differential Comment SCANNED POC Glucose 100 Blood Type A POSITIVE Antibody Screen NEGATIVE 12/05/19 08:35 WBC RBC Hgb Hct MCV MCH MCHC RDW Std Deviation RDW Coeff of [place]ane Plt Count MPV Immature Gran % (Auto) Neut % (Auto) Lymph % (Auto) [place] % (Auto) Eos % (Auto) Baso % (Auto) Absolute Neuts (auto) Absolute Lymphs (auto) Nucleated RBC % Differential Comment POC Glucose 67 L Blood Type Antibody Screen Course Did the patient receive No care? Labs Blood Type: A RH: POSITIVE RPR/VDRL/Syphilis Nonreactive Rubella status Immune HbSAg Negative Date Done: 05/10/19 Chlamydia Negative Gonorrhea Negative HIV/AIDS Non-Reactive Group B Strep: Negative Current Obstetrical History Gestational Diabetes Yes Incompetent Cervix No Infertility No Macrosomia No Hypertension/Pre-eclampsia No Placenta Previa/Abruption No PTL/PROM No Uterine anomaly No Oligohydramnios No Polyhydramnios No Multiple gestation No Past Medical History Asthma Yes Diabetes No Hypertension No Heart disease No Mitral valve prolapse No Neurologic/Seizure disorder No Migraines Yes Kidney disease No Liver disease No Varicosities No Clotting disorders/Hx of DVT No Thyroid Dysfunction No Other medical diseases No Psychiatric disorders No Major trauma No Abnormal PAP smear No Sleep apnea No Mammogram in the last 2 years No Social History Marital Status: Alleged father Rod Hx Smoking No Smoking Status Never smoker Expected Delivery Method: Spontaneous Vaginal Describe any other labor & delivery plans:: pitocin Number of Visits: 12 Review of Systems Constitutional: Denies: Anorexia Eyes: Denies: Vision Change Cardiovascular: Denies: Chest Pain, Edema Respiratory: Denies: Shortness of Breath Gastrointestinal: Denies: Abdominal Pain, Nausea, Vomiting Gynecological: Reports: - - Denies contractions, leaking fluid or vaginal bleeding. Good movement. Physical Exam Vitals: Vital Signs Temp Pulse BP Pulse Ox 97.1 F L 97 118/81 H 98 12/05/19 07:47 12/05/19 07:23 12/05/19 07:23 12/05/19 07:47 General: Alert, Oriented x3, Cooperative, No apparent distress HEENT: Atraumatic, Normocephalic Cardiovascular: Regular rate, Regular Rhythm Lungs: Clear to auscultation, Normal air movement Abdomen: Soft, Non Tender, Non-Distended, - - Fundus soft, nontender Neurological: Neuro grossly intact Estimated gestational size: Appropriate for gestational size Presentation: Cephalic Cervix Dilation (cm): 4 Station: -3 Effacement (%): 60 - per RN exam Deandra Reyes Assessment/Plan All Active Problems (This Medical Record has been edited. Action required.) 39 weeks gestation of (Acute) Gestational diabetes (Acute) SGA (small for gestational age), , affecting care of mother, antepartum (Acute) This is a 29 year-old, G [2], P [0], at 39 2/7 weeks gestational age, Cat I FHR GDM - FS 100, will monitor per protocol Borderline SGA Will titrate pitocin as tolerated by mother and fetus. Maternal and statuses reassuring. Essential Procedure Criteria Procedure Essential: Yes Criteria Note: On 10/05/2019 the [facility] ([facility]) Public Order signed by [facility] Director Radha Ford M.D., regarding the Management of Non-Essential Surgeries and Procedures for the purpose of preserving Personal Protective Equipment (PPE) and critical hospital capacity and resources within [place] went into effect as of 10/06/2019 at 5:00PM. According to the [facility] Public Order: This action will remain in full force and effect until the State of Emergency declared by the Governor no longer exists or the Director of the [facility] rescinds or modifies this Order.. This [facility] order stated all non-essential or elective surgeries and procedures that utilize PPE should be delayed unless there is undue risk to the current or future health of a patient. After reviewing the aforementioned [facility] Public Order and the patients clinical case, I have determined that the scheduled procedure meets the criteria to go forward. Risk to Patient if Procedure Delayed: Threat to patient's life if surgery or procedure is delayed
[2019-12-05 12:30] LABS: Bedside Glucose 81 mg/dL (70-110)
[2019-12-05] MEDS: Lactated Ringers 500 ML 999 ML IV ×2 (12:33→14:14)
--- NOTE | 2019-12-05 12:35 | PCM.PN.BLA ---
Progress Note LABOR PROGRESS NOTE Contractions intensify. AVSS GEN - NAD, AAO x 3 FHR 125, moderate variability, + accelerations, no decelerations TOCO 3/10 min SVE 4.5/60/-2, soft, midposition A/P: 29yo @ 39 2/7wga, IOL, GDM, Cat I FHR -Amniotomy performed with scant, clear fluid -Continue pitocin as tolerated by mother and fetus -Maternal and statuses reassuring STROKE Vital Signs/Narrative: Vital Signs Temp Pulse BP Pulse Ox 12/05/19 16:40 56 L 109/64 12/05/19 16:26 71 106/59 L 12/05/19 14:31 64 119/59 L 97 12/05/19 14:27 56 L 91 12/05/19 14:23 64 100 12/05/19 14:22 64 90 12/05/19 14:20 50 L 98/59 L 12/05/19 14:18 63 99 12/05/19 14:13 47 L 99/59 L 99 12/05/19 14:07 52 L 99 12/05/19 14:02 49 L 100 12/05/19 13:57 52 L 100 12/05/19 13:52 60 99 12/05/19 13:49 62 96/59 L 98 12/05/19 13:47 71 98 12/05/19 13:44 68 99/60 98 12/05/19 13:42 61 99 12/05/19 13:39 98.1 F 12/05/19 13:38 71 103/56 L 98 12/05/19 13:37 99 12/05/19 13:35 67 107/56 L 97 12/05/19 13:32 69 99 12/05/19 13:28 59 L 113/64 100 12/05/19 13:27 100 12/05/19 13:24 70 118/64 92 12/05/19 13:22 64 98 12/05/19 13:19 73 125/73 H 12/05/19 13:17 73 100 12/05/19 13:14 67 151/73 H 12/05/19 13:12 62 100 12/05/19 13:08 63 126/67 H 12/05/19 13:07 99
[2019-12-05] MEDS: fentaNYL-bupivacaine (epidural) 100 ML BAG EPIDURAL (13:26)
[2019-12-05] MEDS: Oxytocin 30 units/NS 500 ml 30 UNITS/500 ML IV.SOLN 334 UNITS IV (16:14)
--- NOTE | 2019-12-05 16:30 | PCM.OPRPT ---
Problem List (1) 39 weeks gestation of Status: Acute (2) Gestational diabetes Status: Acute Qualifiers: Gestational diabetes mellitus control: diet-controlled Trimester: third trimester Qualified Code(s): O24.410 - Gestational diabetes mellitus in , diet controlled Vaginal Delivery Maternal Presentation: Medically Indicated Induction Method of Induction: Pitocin, Amniotomy Amniotic Membrane Rupture Type: Spontaneous Rupture of Membrane time: 12/05/19 1220h Amniotic Fluid Description: Clear Final ANISA: 12/10/19 Final ANISA Source: US <20 weeks Gestational age: 39 Weeks and 2 Days Date of Procedure: 12/05/19 Pre-Operative Diagnosis: 39 2/7wga, Gestational diabetes, SGA Post-Operative Diagnosis: 39 2/7wga, gestational diabetes, SGA Surgery/ Procedure Performed: Spontaneous Vaginal Delivery Anesthesiologist: Judith Rojas Type of Anesthesia: Epidural Description of Procedure: Patient was FD/+2 station. She pushed over approximately 1 hour 15 minutes to deliver a vigorous female infant with Category II FHR. The was placed on the maternal abdomen and further attended by the nursery personnel. The placenta delivered spontaneously and appeared intact on inspection. A first degree vaginal laceration was repaired with 3-0 Vicryl Rapide with good hemostasis. Sponge and needle counts correct x 2. Presentation: Vertex Placental Delivery Description: Spontaneous Placenta Disposition: [facility] Cord Vessel Description: 3 Vessels Nuchal Cord Compression: Without compression Cord Gases drawn per routine: ABG, VBG Cord Entanglement: None Drain: [place] to straight drain Estimated Blood Loss: 300 ml Infant A gender: Female (1 minute): 8 (5 minute): 9 Episiotomy Description: None Laceration: Midline, Vaginal Extension/lac, 1st degree Medications given after delivery: IV Pitocin Complications: None
[2019-12-05] MEDS: Acetaminophen 325 MG Tablet PO (19:25)
[2019-12-06] VITALS (9 sets, daily range): BP systolic 103–118; BP diastolic 56–65; PULSE 55–77; RESP 16–18; TEMP 36.5–36.8; O2SAT 97
[2019-12-06] MEDS: Acetaminophen 325 MG Tablet PO ×3 (00:55→14:40)
[2019-12-06 06:11] LABS: Bedside Glucose 80 mg/dL (70-110)
--- NOTE | 2019-12-06 06:14 | PCM.PN.OB ---
Patient Problems: Active and Suspected Problems (This Medical Record has been edited. Action required.) 39 weeks gestation of (Acute) Gestational diabetes (Acute) SGA (small for gestational age), , affecting care of mother, antepartum (Acute) Subjective: No issues overnight. Archana is sore, but discomfort is manageable. Denies heavy lochia. She is . Objective: AVSS - Physical Exam Vitals/I&O's: Vital Signs Temp Pulse Resp BP Pulse Ox 97.8 F 67 16 118/65 97 12/06/19 04:29 12/06/19 04:29 12/06/19 04:29 12/06/19 04:29 12/06/19 04:29 Oxygen Delivery Method Room Air Weight: 74.6 kg Body Mass Index (BMI) 30.0 Intake and Output for Last 24 Hours 12/04/19 12/05/19 12/06/19 23:59 23:59 23:59 Intake Total 2316.14 / 2316.14 Output Total 250 / 250 300 / 300 Balance 2066.14 / 2066.14 -300 / -300 General: Alert, Oriented x3, Cooperative, No apparent distress HEENT: Atraumatic, Normocephalic Lungs: Clear to auscultation, Normal air movement Cardiovascular: Regular rate, Regular Rhythm, Normal S1, Normal S2 Abdomen: Soft, Non Tender, Non-Distended, - - Fundus firm and nontender at 1 FW below umbilicus Extremities: No edema, No Calf Tenderness Neurological: Neuro grossly intact Psych/Mental Status: Normal Affect, Appropriate, Alert and oriented to time, place, person, mood and affect Laboratory Results 12/05/19 07:30: WBC 8.4, RBC 3.60 L, Hgb 11.0 L, Hct 32.6 L, MCV 90.6, MCH 30.6, MCHC 33.7, RDW Std Deviation 43.7, RDW Coeff of [place] 13.4, Plt Count 214, MPV 13.5 H, Immature Gran % (Auto) 0.200, Neut % (Auto) 57.5, Lymph % (Auto) 33.9, [place] % (Auto) 6.2, Eos % (Auto) 1.8, Baso % (Auto) 0.4, Absolute Neuts (auto) 4.8, Absolute Lymphs (auto) 2.83, Nucleated RBC % 0, Differential Comment SCANNED 12/05/19 07:30: Blood Type A POSITIVE, Antibody Screen NEGATIVE 12/05/19 07:38: POC Glucose 100 12/05/19 08:35: POC Glucose 67 L 12/05/19 12:26: POC Glucose 81 12/06/19 06:00: POC Glucose 80 Current Medications Acetaminophen (Tylenol) 325 - 650 mg PO Q4H PRN PRN PRN Reason: Pain Score 1-3/10 Last Admin: 12/06/19 06:13 Dose: 650 mg Documented by: Bisacodyl (Dulcolax) 10 mg RECTAL UD PRN PRN Reason: If no BM Dextrose (D50w Syringe) 0 gm IV X1 PRN; Protocol PRN Reason: Hypoglycemia Dibucaine (Dibucaine) 1 applic TOPICAL TID PRN PRN; Protocol PRN Reason: Discomfort Glucagon () 1 mg IM .X1 PRN PRN Reason: Hypoglycemia Hydrocortisone (Hytone) 1 applic TOPICAL TID PRN PRN; Protocol PRN Reason: Discomfort Methylergonovine Maleate (Methergine) 0.2 mg IM X1 PRN PRN Reason: Excess bleeding/uterine atony Ondansetron HCl (Zofran) 4 mg IV Q4H PRN PRN PRN Reason: NAUSEA Senna/Docusate Sodium (Senokot-S, Janee-Colace) 1 - 2 tablet PO DAILY PRN PRN PRN Reason: Constipation Simethicone (Mylicon) 80 mg PO PCHS PRN PRN Reason: Indigestion/Stomach pain Sodium Chloride () 5 - 15 ml IV UD PRN PRN Reason: SALINE FLUSH Medical Necessity - Tobacco Use Smoking Status: Never smoker Assessment/Plan All Active Problems (This Medical Record has been edited. Action required.) 39 weeks gestation of (Acute) Gestational diabetes (Acute) SGA (small for gestational age), , affecting care of mother, antepartum (Acute) This is a 29 year-old, G [2], P [1011], PPD#1 s/p doing well. -hx GDM - Fasting glucose 80 mg/dL this am. d/c monitoring -Routine care - -Rh positive -Consider d/c home later today if infant clear for discharge
--- NOTE | 2019-12-06 06:21 | DCINST_ITS ---
Discharge Diet: No Restrictions Discharge Activity: Return to Normal Activity May resume sexual activity in: 4-6 weeks Lifting Restrictions: 20 lb Additional Instructions: If you experience any of the following, contact your healthcare provider. * Bleeding that soaks a pad every hour for 2 hours * Fever 100.4 or higher * Unrelieved incision or abdominal pain * Swelling, redness, discharge or bleeding from your incision or episiotomy site * Your incision begins to separate * Problems urinating (including inability to urinate or burning while urinating). * Visual changes * Severe headache * Flu-like symptoms * Pain or redness in one of both of your breasts * Pain, warmth, tenderness or swelling in your legs, especially the calf area * Frequent nausea and vomiting * Symptoms of depression or anxiety If you experience any of the following, call 911 or go to the nearest Emergency Room. * Chest pain * Problems breathing * Seizure activity * Partial or complete paralysis of a body part, slurred speech, weakness or drooping of the face, or a sudden inability to walk or hold your balance Allergies/Adverse Reactions: Allergies No Known Allergies Allergy (Unverified 11/09/18 16:02) Medications to take at Discharge Ibuprofen 600 mg PO TID PRN #30 tab 12/06/19 The following prescriptions were given: Ibuprofen 600 mg PO TID PRN #30 tab PRN Reason: Pain Score 1-10/10 Transmission Status: Pending to [facility] Please Follow Up With: Macarena Rodas MD - Telemedicine follow up When: 2-3 weeks Please Follow Up With: Macarena Rodas MD - visit When: 6-8 weeks Primary Care Physician: Leodan Taveras III, MD [Primary Care Provider] - Test Results: Test results from this visit will be discussed in further detail at your follow- up appointment, if applicable.
--- NOTE | 2019-12-06 06:21 | PCM.DCVAG ---
Discharge Diet: No Restrictions Discharge Activity: Return to Normal Activity May resume sexual activity in: 4-6 weeks Lifting Restrictions: 20 lb Additional Instructions: If you experience any of the following, contact your healthcare provider. Bleeding that soaks a pad every hour for 2 hours Fever 100.4 or higher Unrelieved incision or abdominal pain Swelling, redness, discharge or bleeding from your incision or episiotomy site Your incision begins to separate Problems urinating (including inability to urinate or burning while urinating). Visual changes Severe headache Flu-like symptoms Pain or redness in one of both of your breasts Pain, warmth, tenderness or swelling in your legs, especially the calf area Frequent nausea and vomiting Symptoms of depression or anxiety If you experience any of the following, call 911 or go to the nearest Emergency Room. Chest pain Problems breathing Seizure activity Partial or complete paralysis of a body part, slurred speech, weakness or drooping of the face, or a sudden inability to walk or hold your balance Allergies/Adverse Reactions: Allergies No Known Allergies Allergy (Unverified 11/09/18 16:02) Medications to take at Discharge Ibuprofen 600 mg PO TID PRN #30 tab 12/06/19 The following prescriptions were given: Ibuprofen 600 mg PO TID PRN #30 tab PRN Reason: Pain Score 1-10/10 Transmission Status: Pending to [facility] Please Follow Up With: Macarena Rodas MD - Telemedicine follow up When: 2-3 weeks Please Follow Up With: Macarena Rodas MD - visit When: 6-8 weeks Primary Care Physician: Leodan Taveras III, MD [Primary Care Provider] - Test Results: Test results from this visit will be discussed in further detail at your follow-up appointment, if applicable.
[2019-12-06] MEDS: Ibuprofen 600 MG Tablet PO (09:05)
== END 2019-12-06 18:40 | disposition home or self-care (01) | DRG 807 ==
PROVIDERS: Admitting Provider Obstetrics & Gynecology; PCP Family Medicine; Visit Provider Obstetrics & Gynecology
DX: O24.429 Gestational diabetes mellitus in childbirth, unspecified control (principal); Z37.0 Single live birth; O70.0 First degree perineal laceration during delivery; O36.5930 Maternal care for other known or suspected poor fetal growth, third trimester, not applicable or unspecified; J45.909 Unspecified asthma, uncomplicated; O99.52 Diseases of the respiratory system complicating childbirth; O69.1XX0 Labor and delivery complicated by cord around neck, with compression, not applicable or unspecified; Z3A.39 39 weeks gestation of pregnancy
CPT/HCPCS: 59050; 82962; 85025; 86850; 86900; 86901; 99218; J7120; G0378

== ENCOUNTER → 2020-02-02 11:50 | Outpatient (CLI) | payer OTHER, SELFPAY ==
[2020-02-02 17:33] LABS: Chlamydia Trachomatis by PCR Negative (Negative); Neisserai gonorrhoeae by PCR Negative (Negative); Probe Check PASS; Sample Adequacy Control PASS; Specimen Processing Control PASS
== END ==
PROVIDERS: PCP Family Medicine; Visit Provider Obstetrics & Gynecology
DX: Z11.3 Encounter for screening for infections with a predominantly sexual mode of transmission (principal)
CPT/HCPCS: 87491; 87591

== ENCOUNTER 2020-03-15 13:04 | Outpatient (CLI) | payer OTHER, SELFPAY | END 2020-03-15 14:05 | disposition home or self-care (01) | LOC: WPOUT 13:07 → WP 13:07 | PROVIDERS: PCP Family Medicine; Referring Provider Obstetrics & Gynecology; Visit Provider Obstetrics & Gynecology | DX: R63.3 Feeding difficulties (principal) | CPT/HCPCS: 96158; 96159 ==

== ENCOUNTER 2021-08-20 16:11 | Emergency (ER) | payer OTHER, SELFPAY ==
[2021-08-20 16:15] VITALS: BP 97/54; PULSE 94; RESP 17; TEMP 37; O2SAT 100; BMI 26.6
--- NOTE | 2021-08-20 16:34 | EX.ED.DYSGE1 ---
HPI History of Present Illness Chief Complaint: Nausea/Vomiting Informant: patient Narrative Narrative: Patient presents with nausea vomiting during . This is a female who is currently about 10 weeks . With her last , she had nausea vomiting for 7 or 8 months. She did not think it was quite as bad this time. She has been having symptoms for around 3 weeks. She has been taking Phenergan once or twice a day. This does stop the vomiting but it does not help the actual sense of nausea. She is still gaining weight. But she states the last few days have been a little worse. She is not drinking as much. Her urine output is decreased although there is no dysuria. No abdominal pain. No bleeding. Her OB already called in a prescription for Zofran for her. But she referred her in here for IV fluids. Medicine does help her symptoms. Eating tends to make them slightly worse. [facility] Medical History 39 weeks gestation of Acute wheezy bronchitis Asthma Cyst of face Frequent headaches Gestational diabetes Right ankle sprain Right foot sprain Right wrist sprain SGA (small for gestational age), , affecting care of mother, antepartum Sprain of right hand Home Medications cephalexin 500 mg PO Q6 #28 cap 08/20/21 [Rx Last Taken Unknown] cholecalciferol (vitamin D3) [Vitamin D3] 125 mcg PO DAILY 08/20/21 [History Last Taken Unknown] doxylamine-pyridoxine (vit B6) [Diclegis] 1 tab PO BID #30 tab 08/20/21 [Rx Last Taken Unknown] ondansetron 4 mg PO Q8H 08/20/21 [History Last Taken Unknown] no.144-folic acid [] 2 tab PO DAILY 08/20/21 [History Last Taken Unknown] promethazine 12.5 - 25 mg PO Q4H 08/20/21 [History Last Taken Unknown] Allergy/AdvReac Type Severity Reaction Status Date / Time No Known Allergies Allergy Verified 08/20/21 16:12 Family History Grandmother Breast cancer Lung cancer Father Hypertension Mother Hypertension Thyroid disorder Asthma Grandfather Colon cancer Lung cancer Mother Diabetes Sister Depression Surgical History History of tonsillectomy Social History household members: spouse and children housing: house current occupational status: employed current occupation: [employer] pets and animals: Yes Smoking Status: Never smoker alcohol intake: never substance use type: does not use what type of physical activity do you participate in: none do you feel safe at home: Yes ROS ROS ED Constitutional Constitutional ED: Denies chills or fever(s) Eyes Eyes: Denies blurry vision ENT ENT ED: Denies rhinorrhea or sore throat Cardiovascular Cardiovascular: Denies chest pain Respiratory/Chest Respiratory/Chest: Denies cough or dyspnea Gastrointestinal Gastrointestinal: Reports nausea and vomiting; Denies abdominal pain or diarrhea Genitourinary Genitourinary ED: Reports other Details: Decreased urine output but no dysuria. ; Denies dysuria or hematuria Musculoskeletal Musculoskeletal: Denies back pain Integumentary Denies rash Neurologic Neurologic: Denies headache(s) Endocrine Endocrinology: Denies polydipsia or polyuria Allergic/Immunologic Allergic/Immunologic ED: Denies mouth swelling or urticaria EXAM Physical Exam Const Vital Signs: 08/20/21 16:15 Temperature 98.6 F Temperature Source Temporal Pulse Rate 94 Respiratory Rate 17 Blood Pressure 97/54 L Blood Pressure Mean 68 Pulse Ox 100 Oxygen Delivery Method Room Air Positive well nourished and well developed General Appearance ED: well developed and NAD; Negative for cyanotic or diaphoretic HEENT HEENT Narrative: Mucous membranes are still somewhat moist. Negative for trauma or tenderness Eyes General Eye ED: Negative for pale conjunctiva or scleral icterus Neck no JVD Chest Wall inspection of chest normal Resp normal respiratory effort and clear to auscultation bilaterally Effort and Inspection: Negative for pain with movement Auscultation: Negative for rales, rhonchi or wheezes Cardio regular rate and regular rhythm GI normal to inspection, nondistended, normoactive bowel sounds and non-tender Palpation: soft Back/Spine no CVA tenderness Back/Spine Narrative: No CVA or suprapubic tenderness. Extremity General Extremety ED: Negative for tenderness Neuro oriented x3 Sensorium / Orientation: alert Psych mental status grossly normal Skin no rashes or lesions noted MDM MDM MDM Narrative Medical decision making narrative: Patient's electrolytes show no acute process. Her urine does show signs of infection. It is cloudy with leukocyte esterase 10-25 white cells and 3+ bacteria. We will treat this pending culture. I explained to the patient that if her cultures are negative she may be able to stop medicines. We will start her on Keflex. She already has Zofran written by her doctor. I will write for some Diclegis also. She will contact her physician for close follow-up. Lab Data Attestation: I reviewed the patient's lab results. Labs: Laboratory Results - last 24 hr 08/20/21 08/20/21 16:47 16:55 Sodium 136 Potassium 3.7 Chloride 104 Carbon Dioxide 27.0 Anion Gap 5 BUN 12 Creatinine 0.73 Estim Creat Clear Calc 85.03 Est GFR (MDRD) Af Amer 119 Est GFR (MDRD) Non-Af 99 BUN/Creatinine Ratio 16.4 Glucose 87 Calcium 9.6 Urine Color Yellow Urine Clarity Sl. Cloudy Urine pH 6.5 Ur Specific Mcclure 1.020 Urine Protein 15 H Urine Glucose (UA) Normal Urine Ketones 50 H Urine Occult Blood Negative Urine Nitrite Negative Urine Bilirubin Negative Urine Urobilinogen Normal Ur Leukocyte Esterase 100 H Urine RBC 0 SEEN Urine WBC 10-25 SEEN Ur Squamous Epith Cells 5-10 SEEN Urine Bacteria 3+ Urine Mucus 0 SEEN Discharge Plan Triage Chief Complaint: Nausea/Vomiting ED Provider: Delmer Packer Dx/Rx/DC Orders Clinical Impression: Hyperemesis gravidarum, UTI (urinary tract infection) during Instructions: Urinary Tract Infections in Women, ED Hyperemesis Gravidarum Prescriptions: New doxylamine-pyridoxine (vit B6) [Diclegis] 10-10 mg tablet,delayed release (DR/EC) 1 tab PO BID Qty: 30 RF: 0 cephalexin [cephalexin] 500 MG capsule 500 mg PO Q6 Qty: 28 RF: 0 No Action promethazine 25 mg tablet 12.5 - 25 mg PO Q4H RF: 0 ondansetron 4 mg tablet,disintegrating 4 mg PO Q8H RF: 0 cholecalciferol (vitamin D3) [Vitamin D3] 125 mcg (5,000 unit) Tablet 125 mcg PO DAILY RF: 0 400 mcg Tablet,Chewable 2 tab PO DAILY RF: 0 Primary Care Provider: Care Physician,No Primary Referrals: Macarena Bourne MD [STAFF PHYSICIAN] - As soon as possible Care Physician,No Primary [Primary Care Provider] - Disposition Disposition: Home, Self Care
[2021-08-20 16:54] LABS: Mucous, Urine 0 SEEN /hpf (<or=2+); Red Blood Cells-Urine 0 SEEN /hpf (0-5)
[2021-08-20] MEDS: 0.9% Normal Saline 1,000 ML 1000 ML IV (16:55)
[2021-08-20 16:58] LABS: Color, Urine Yellow (Yellow); Glucose, Dipstick Normal (Normal); Ketone-Dipstick 50 mg/dl (Negative); Leukocyte Esterase-Dipstick 100 /ul (Negative); Nitrite-Dipstick Negative (Negative); Occult Blood-Urine Negative /ul (Negative); Protein-Dipstick 15 mg/dl (Negative); Urine Bilirubin Dipstick Negative (Negative); Urine Clarity Sl. Cloudy (Clear); Urine Urobilinogen Normal (Normal); Urine pH 6.5 (5.0 - 8.0)
[2021-08-20] MEDS: Ondansetron 4 MG/2 ML Vial IV (17:00)
[2021-08-20 17:07] LABS: Bacteria 3+ /hpf (None Seen); Squamous Epithelial Cells - UA 5-10 SEEN /hpf (5-10); White Blood Cells 10-25 SEEN /hpf (0-5)
[2021-08-20 17:26] LABS: Anion Gap 5 (5-15); BUN 12 mg/dL (7-18); BUN/Creat Ratio 16.4 RATIO (10-20); Calcium,Total 9.6 mg/dL (8.5-10.1); Chloride 104 mmol/L (98-107); Creatinine, Serum 0.73 mg/dL (0.55-1.02); EST Glomerular Filtration Rate 99 mL/min (>60); Est Glom Filt Rate - Afr Amer 119 mL/min (>60); Estimated Creatinine Clearance 85.03 ml/min; Glucose 87 mg/dL (74-106); Potassium 3.7 mmol/L (3.5-5.1); Sodium Level 136 mmol/L (136-145)
[2021-08-20] MEDS: Cephalexin 250 MG Capsule 500 MG PO (18:01)
[2021-08-20 18:02] VITALS: BP 120/78; PULSE 88; RESP 16; TEMP 36.9; O2SAT 98
== END 2021-08-20 18:05 | disposition home or self-care (01) ==
LOC: ED 16:40
PROVIDERS: Emergency Provider Emergency Medicine; Visit Provider Emergency Medicine
DX: O21.0 Mild hyperemesis gravidarum (principal); Z3A.10 10 weeks gestation of pregnancy; O23.41 Unspecified infection of urinary tract in pregnancy, first trimester
CPT/HCPCS: 80048; 81001; 87086; 87088; 96361; 96374; 99284; J7030; A4216; J2405

== ENCOUNTER 2021-08-22 16:19 | Outpatient (CLI) | payer OTHER, SELFPAY ==
[2021-08-22 16:44] LABS: Anion Gap 6 (5-15); BUN 13 mg/dL (7-18); BUN/Creat Ratio 18.7 RATIO (10-20); Calcium,Total 8.9 mg/dL (8.5-10.1); Chloride 102 mmol/L (98-107); EST Glomerular Filtration Rate 105 mL/min (>60); Est Glom Filt Rate - Afr Amer 127 mL/min (>60); Glucose 78 mg/dL (74-106); Potassium 3.6 mmol/L (3.5-5.1); Sodium Level 135 mmol/L (136-145)
== END 2021-08-22 23:59 | disposition home or self-care (01) ==
PROVIDERS: Visit Provider Obstetrics & Gynecology
DX: O21.0 Mild hyperemesis gravidarum (principal)
CPT/HCPCS: 36415; 80048

== ENCOUNTER 2021-09-07 11:20 | Outpatient (CLI) | payer OTHER, SELFPAY ==
[2021-09-07 12:52] LABS: Ferritin 19 ng/mL (8-252); Iron 47 ug/dL (50-170); Iron Binding Capacity,Total 342 ug/dL (250-450)
== END 2021-09-07 23:59 | disposition home or self-care (01) ==
LOC: WOBLAB 11:20
PROVIDERS: Visit Provider Obstetrics & Gynecology
DX: Z34.82 Encounter for supervision of other normal pregnancy, second trimester (principal); F50.89 Other specified eating disorder
CPT/HCPCS: 36415; 82728; 83540; 83550

== ENCOUNTER → 2021-12-07 | Outpatient (CLI) | payer OTHER, SELFPAY ==
[2021-12-07 09:28] LABS: Hematocrit 30.6 % (37-47); Hemoglobin 10.3 g/dL (12.0-15.0); Mean Corp Hgb Conc 33.7 g/dL (32-36); Mean Corpuscular Hgb 31.9 pg (27.0-32.0); Mean Corpuscular Volume 94.7 fL (81-99); Mean Platelet Vol. 11.4 fl (6.2-12.0); Platelet Count 240 K/mm3 (150-450); RBC Distribution Width CV 12.1 % (11.6-14.6); Red Blood Count 3.23 M/mm3 (4.2-5.4); White Blood Count 7.7 K/mm3 (4.4-11.0)
[2021-12-07 09:53] LABS: Glucose Challenge Gest 1H 50g 145 mg/dL (70-140)
== END | disposition home or self-care (01) ==
LOC: WOBLAB 09:13
PROVIDERS: Visit Provider Obstetrics & Gynecology
DX: Z34.82 Encounter for supervision of other normal pregnancy, second trimester (principal)
CPT/HCPCS: 36415; 82950; 85027

== ENCOUNTER → 2022-01-25 | Outpatient (CLI) | payer OTHER, SELFPAY ==
--- NOTE | 2022-01-25 13:17 | US_ITS ---
STUDY: SECOND AND THIRD TRIMESTER OBSTETRICAL ULTRASOUND - LIMITED REASON FOR EXAM: Female, 31 years old growth -- HX OF COVID LMP: 06/11/2021. PRIOR ULTRASOUND: None. TECHNIQUE: Transabdominal TECHNICAL QUALITY: Adequate. FINDINGS: There is a single intrauterine fetus. The fetus is in a cephalic presentation. There is demonstrated cardiac activity with a heart rate of 144 bpm. There is a normal amniotic fluid volume. The largest amniotic fluid pocket measures 4.3 cm x 4.9 cm. The amniotic fluid index (DOROTHY) is 13.6 cm. The placenta is posterior in location and is not low lying. There are Grade 1 placental changes. The cervix measures 4.1 cm in length. BIOMETRY: BPD: 8.01 cm: 32 weeks, 2 days HC: 30.12 cm: 33 weeks, 3 days AC: 28.88 cm: 33 weeks, 0 days FL: 6.27 cm: 32 weeks, 4 days Age by LMP: 32 weeks, 4 days. ANISA by LMP: 03/18/2022. age by current US: 32 weeks, 6 days. ANISA by current US: 03/16/2022. Estimated weight: 2042 grams, +/- 298 grams, 46 percentile. US/OB Limited With Biometrics IMPRESSION: Single live intrauterine gestation with mean gestational age of 32 weeks and 6 days. Electronically Signed: Darwin Page MD at 14:45 EDT ,
== END | disposition home or self-care (01) ==
LOC: US 13:16
PROVIDERS: Referring Provider Obstetrics & Gynecology; Visit Provider Obstetrics & Gynecology
DX: O98.513 Other viral diseases complicating pregnancy, third trimester (principal); U07.1 COVID-19; Z3A.32 32 weeks gestation of pregnancy
CPT/HCPCS: 76816

== ENCOUNTER → 2022-02-18 | Outpatient (CLI) | payer OTHER, SELFPAY ==
[2022-02-18 11:11] LABS: Absolute Lymphocyte Count 1.57 X10^3/uL (0.83-4.51); Absolute Neutrophil Count 4.9 X10^3/uL (2.0-7.7); Basophil# 0.03 X10^3/uL; Basophil% 0.4 % (0-1); Eosinophil# 0.04 X10^3/uL; Eosinophils% 0.6 % (0-5); Hemoglobin 10.7 g/dL (12.0-15.0); Lymphocyte # 1.57 X10^3/ul (0.83-4.51); Lymphocyte % 22.2 % (19-41); Mean Corp Hgb Conc 33.4 g/dL (32-36); Mean Corpuscular Hgb 31.3 pg (27.0-32.0); Mean Corpuscular Volume 93.6 fL (81-99); Mean Platelet Vol. 11.5 fl (6.2-12.0); Monocyte# 0.45 X10^3/uL; Monocyte% 6.4 % (0-10); NRBC Flagged by Analyzer 0 % (0-5); Neutrophil # 4.93 X10^3/uL (2.7-7.7); Neutrophil % 69.7 % (47-70); Platelet Count 166 K/mm3 (150-450); RBC Distribution Width CV 14.5 % (11.6-14.6); RBC Distribution Width SD 47.8 fl (35.1-43.9); Red Blood Count 3.42 M/mm3 (4.2-5.4); White Blood Count 7.1 K/mm3 (4.4-11.0)
== END | disposition home or self-care (01) ==
PROVIDERS: Referring Provider Obstetrics & Gynecology; Visit Provider Obstetrics & Gynecology
DX: Z34.90 Encounter for supervision of normal pregnancy, unspecified, unspecified trimester (principal); Z3A.35 35 weeks gestation of pregnancy
CPT/HCPCS: 36415; 85025

== ENCOUNTER → 2022-02-22 | Outpatient (CLI) | payer OTHER, SELFPAY | END | disposition home or self-care (01) | LOC: LABSPEC 02-25 09:59 | PROVIDERS: Visit Provider Obstetrics & Gynecology | DX: Z34.90 Encounter for supervision of normal pregnancy, unspecified, unspecified trimester (principal) | CPT/HCPCS: 87081 ==

== ENCOUNTER 2022-02-25 10:47 | Inpatient (IN) | payer OTHER, SELFPAY ==
[2022-02-25] VITALS (17 sets, daily range): BP systolic 87–120; BP diastolic 47–70; PULSE 56–80; RESP 16–18; TEMP 35.8–36.4; O2SAT 16–98; BMI 30.2
[2022-02-25] MEDS: Lactated Ringers 1,000 ML 999 ML IV (10:40)
[2022-02-25] MEDS: Cefazolin 2 GM in 0.9% Normal Saline 100 ML IV (10:48)
[2022-02-25] MEDS: Methylergonovine 0.2 MG/ML Ampul IM (11:01)
--- NOTE | 2022-02-25 11:27 | HP.PCM.OB_ITS ---
HPI - General General Date of Admission: 02/25/22 HPI Narrative KIKO ANNE, is a 32 F who presents with decreased movement, and upon NST evaluation in the office patient found to have a heart rate deceleration and therefore was immediately taken down to labor and delivery and IV started with fluid bolus, FHT 110-120 with absent variability once on the monitor again. After there was another variable deceleration the decision was made for stat . Maternal Data Information ANISA Calculator Estimated Delivery Date Method Current WG Current Estimate 03/18/22 LMP (Certain) 37w 0d PFSH PFSH Medical History 39 weeks gestation of Abnormal Pap smear of cervix Acute wheezy bronchitis Asthma Cyst of face Frequent headaches Gestational diabetes Right ankle sprain Right foot sprain Right wrist sprain SGA (small for gestational age), , affecting care of mother, antepartum Sprain of right hand Home Medications cholecalciferol (vitamin D3) 125 mcg (5,000 unit) tablet (Vitamin D3) 125 mcg PO DAILY 08/20/21 [History Last Taken Unknown] vitamins no.144-folic acid 400 mcg chewable tablet () 2 tab PO DAILY 08/20/21 [History Last Taken Unknown] aspirin 81 mg tablet,delayed release 81 mg PO DAILY 01/18/22 [History Last Taken Unknown] ferrous sulfate 142 mg (45 mg iron) tablet,extended release (Slow Fe) 142 mg PO BID #60 tabs 01/28/22 [Rx Last Taken Unknown] Allergy/AdvReac Type Severity Reaction Status Date / Time No Known Allergies Allergy Verified 02/25/22 10:32 Family History Grandmother Breast cancer Lung cancer Father Hypertension Mother Hypertension Thyroid disorder Asthma Grandfather Colon cancer Lung cancer Mother Diabetes Sister Depression Surgical History History of tonsillectomy Social History household members: spouse and children housing: house current occupational status: employed current occupation: [employer] pets and animals: Yes Smoking Status: Never smoker alcohol intake: never substance use type: does not use what type of physical activity do you participate in: none do you feel safe at home: Yes additional social history: - Rod History 3 Elective abortions Hx Para 1 Spontaneous abortions Hx # Term Pregnancies Ectopic pregnancies Hx # Pregnancies Multiple births # of living children 1 Past Pregnancies Del. Date Name GA/Weeks Outcome Route Bth Weight Infant Gen Labor Lgth Anesthesia Del Locatn Provider FOB 12/05/19 Gretel 39 live - full term 6lbs 1oz Female 12 hours epidural [facility] Dr. Erendira Velasco Delivery Date: 12/05/19 Last Updated by: Valerie Escoto Gestational diabetes, small for gestational age Visit Details Expected Delivery Route/Plan Labor Preferences- CB/BF classes: na labor support person: Rod labor intervention preferences: no specific. prefer minimal intervention pain management options preferred: epidural. cut cord/dad catch: yes /no : yes PP control planned: rodolfo discussed possible routes of delivery and associated risks: discussed possible delivery modalities and possible indications for each including R/B/A of , VAVD, and CS. questions answered. special requests: none OB Flowsheet Initial Weight: Not Recorded Date -?-?-?-?-?-?-?-?-?-?-?-?- EGA Weight BP Urine Prot -?-?-?-?-?-?-?-?-?-?-?-?- Glucose FHR FuHt Pres Dilation -?-?-?-?-?-?-?-?-?-?-?-?- Effaced St Visit Note 01/18/22 -?-?-?-?-?-?-?-?-?-?-?-?- 31w 4d 157 lb 4 oz 108/78 Nega tive -?-?-?-?-?-?-?-?-?-?-?-?- Negative 141 30 -?-?-?-?-?-?-?-?-?-?-?-?- JV- transfer fro [facility] after Dr. Rodas gave notice of leave. She did not pass her one hour gct but was able to do a few weeks of glucose monitoring and was normal. She was unable to keep the 3 hr glucose down. She had covid last week and is scheduled for 32 and 36 week growth scans. (prefers mfm ultrasounds due to h/o iugr and oligo last ) JV- transfer from [facility] after Dr. Rodas gave notice of leave. She did not pass her one hour gct but was able to do a few weeks of glucose monitoring and was normal. She was unable to keep the 3 hr glucose down. She had covid last week and is scheduled for 32 and 36 week growth scans. (prefers mfm ultrasounds due to h/o iugr and oligo last ) TDAP today. start checking glucose again next week. if normal fastings, test again at 36/37 weeks. 02/01/22 -?-?-?-?-?-?-?-?-?-?-?-?- 33w 4d 160 lb 128/78 Negative -?-?-?-?-?-?-?-?-?-?-?-?- Negative 140 34 -?-?-?-?-?-?-?-?-?-?-?-?- SM- no vb lof go od fm noreuglar ctx 02/15/22 -?-?-?-?-?-?-?-?-?-?-?-?- 35w 4d 160 lb 2 oz 118/76 Nega tive -?-?-?-?-?-?-?-?-?-?-?-?- Negative 140 35 -?-?-?-?-?-?-?-?-?-?-?-?- SM- no vb lof go od fm no regular ctx SM- no vb lof good fm no reg ular ctx repeat cbc ordered 02/22/22 -?-?-?-?-?-?-?-?-?-?-?-?- 36w 4d 160 lb 2 oz 100/60 Nega tive -?-?-?-?-?-?-?-?-?-?-?-?- Negative 134 37 Cephalic 2 -?-?-?-?-?-?-?-?-?-?-?-?- 50 -2 JV- no lof , v aginal bleeding or dec fm. normal growth scan. gbs collected 02/25/22 -?-?-?-?-?-?-?-?-?-?-?-?- 37w 0d 160 lb 100/51 105/47 105/47 105/60 105/58 106/63 97/64 -?--?-?-?-?-?-?-?-?-?-?-?- -?-?-?-?-?-?-?-?-?-?-?-?- NST FHR Rate Baby A Baseline: 120 Variability:: Absent Accelerations:: None Decelerations:: Variable NST Reactive:: Non-Reactive FHR Category:: Category II Uterine Activity:: no regular ROS Constitutional Constitutional: Reports systems reviewed and no addt'l complaints, except as documented Eyes Eyes: Denies change in vision ENT HEENT: Reports systems reviewed and no addt'l complaints, except as documented; Denies headache(s) Cardiovascular Cardiovascular: Reports systems reviewed and no addt'l complaints, except as documented; Denies chest pain or dyspnea Respiratory/Chest Respiratory/Chest: Reports systems reviewed and no addt'l complaints, except as documented Gastrointestinal Gastrointestinal: Reports systems reviewed and no addt'l complaints, except as documented; Denies abdominal pain Genitourinary Genitourinary: Reports systems reviewed and no addt'l complaints, except as documented, contractions Details: present (irregular) and movement Details: present; Denies dysuria or genital lesions Musculoskeletal Musculoskeletal: Reports systems reviewed and no addt'l complaints, except as documented Neurologic Neurologic: Reports systems reviewed and no addt'l complaints, except as documented Endocrine Endocrinology: Reports systems reviewed and no addt'l complaints, except as documented Vital Signs Vital Signs Vital Signs: 02/25/22 10:37 02/25/22 10:37 02/25/22 10:39 Pulse Rate 65 72 Pulse Ox 91 02/25/22 10:39 Pulse Rate Pulse Ox 98 Physical Exam Const alert, oriented x3, no apparent distress and healthy appearing HEENT normocephalic and moist oral mucous membranes Head and Scalp: atraumatic Lymph Lymphatic: no lymphadenopathy noted Chest inspection of chest normal Resp normal respiratory effort Cardio regular rate GI normal to inspection, nondistended, normoactive bowel sounds, soft to palpation and non-tender Inspection: gravid Extremity normal to inspection Skin no rashes or lesions noted Psych mental status grossly normal Labs Labs Labs: Blood Type A POSITIVE Antibody Screen NEGATIVE Hct 34.4 % (37-47) L Hgb 11.6 g/dL (12.0-15.0) L Pap Smear Negative Obstetrics US Syphilis Total Ab Non-reactive Rubella IgG Antibody Reactive (Nonreactive) Hep Bs Antigen Non-Reactive (Nonreactive) Chlamydia DNA (MAE) Negative (Negative) Neisseria gonorrhoeae DNA (MAE) Negative (Negative) HIV 1&2 Antibody Non-Reactive (Nonreactive) Glucose 1 Hr 50 gm 145 mg/dL (70-140) H Rhogam given: No Assessment & Plan (1) Abnormal glucose tolerance test during , antepartum: COMMENT: failed 1 hr, unable to keep 3 hr down. monitored glucose for several weeks and normal. (2) COVID: COMMENT: 81mg aspirin, 36 wk US 02/18/22 WNL done at [facility] (3) Supervision of normal : COMMENT: ANISA 06/11/22 boy PC Gretel : Rod (4) : QUALIFIERS: Weeks of gestation: 36 weeks Qualified Code(s): Z3A.36 - 36 weeks gestation of COMMENT: Anatomy US normal (5) Decreased movements in third trimester: COMMENT: stat for heart rate decelerations PLAN: Plan proceeded with stat . cbc t and s coags fibrinogen KB test ordered.
[2022-02-25 11:32] LABS: Hematocrit 34.4 % (37-47); Hemoglobin 11.6 g/dL (12.0-15.0); Mean Corp Hgb Conc 33.7 g/dL (32-36); Mean Corpuscular Hgb 31.3 pg (27.0-32.0); Mean Corpuscular Volume 92.7 fL (81-99); Mean Platelet Vol. 11.9 fl (6.2-12.0); Platelet Count 170 K/mm3 (150-450); RBC Distribution Width CV 14.7 % (11.6-14.6); RBC Distribution Width SD 47.8 fl (35.1-43.9); Red Blood Count 3.71 M/mm3 (4.2-5.4)
--- NOTE | 2022-02-25 11:37 | OP.PCM_ITS ---
Assessment & Plan (1) Abnormal glucose tolerance test during , antepartum: COMMENT: failed 1 hr, unable to keep 3 hr down. monitored glucose for several weeks and normal. (2) COVID: COMMENT: 81mg aspirin, 36 wk US 02/18/22 WNL done at [facility] (3) History of gestational diabetes in prior , currently : (4) : QUALIFIERS: Weeks of gestation: 36 weeks Qualified Code(s): Z3A.36 - 36 weeks gestation of COMMENT: Anatomy US normal (5) Supervision of normal : COMMENT: ANISA 06/11/22 boy PC Gretel : Rod (6) Decreased movements in third trimester: COMMENT: stat for heart rate decelerations absent variability (7) delivery delivered: COMMENT: 37 LTCS SM dec fm FHT decels cat II tracing Maternal Data Information ANISA Calculator Estimated Delivery Date Method Current WG Current Estimate 03/18/22 LMP (Certain) 37w 0d Final ANISA Source: LMP Details Operative Information Date of Procedure: 02/25/22 Pre-Operative Diagnosis: decelerations Post-Operative Diagnosis: same Indications for : Distress Classification: Stat Procedure Type: low transverse patient access coordinator #1: Ruth Jones Type of Anesthesia: General Special Medications: none Antibiotic Given: Ancef 2 grams IV x1 Drain: Aguila to straight drain Estimated Blood Loss: 600 Fluids Replaced: crystalloid Findings Description of Procedure: Patient called into the office this morning with decreased movement and was brought in for an NST. After being on the monitor for several minutes a prolonged deceleration was witnessed into the 80s and therefore patient was taken down immediately to labor and delivery and an IV was started and follow-up heart rate was noted to be in the 110s to 120s but with absent variability. There is another variable deceleration and therefore the decision was made to proceed with immediate delivery. Aguila catheter was placed. The patient was placed in the dorsal supine position with leftward tilt. General anesthesia was induced. Patient was prepped and draped in the normal sterile fashion. Pfannenstiel skin incision was made with the scalpel and carried through to the underlying layer of fascia with the scalpel. Fascia was nicked in the midline and the incision extended laterally. The peritoneum was entered digitally. The incision was stretched and a low transverse uterine incision was made with the scalpel. The infant's head was delivered atraumatically followed by the anterior and posterior shoulders without complication the rest of the infant delivered. The cord was clamped and cut and the infant was handed off to awaiting nurse. The placenta was delivered spontaneously immediately following and was noted to be intact and have a three-vessel cord. Fluid was clear and there were no gross abnormalities seen to the placenta. There were no cord abnormalities seen grossly or entanglements. The baby was noted to be very pale upon delivery. the uterus was exteriorized cleared of all clots and debris, and the incision was closed in a double layer closure using #1 Monocryl. The ovaries and fallopian tubes were noted to be within normal limits. The uterus was returned to the maternal abdomen and gutters were cleared of all clots and debris. rashel placed on the incision for hemoastasis. The peritoneum was closed with 3-0 Monocryl in a running fashion. Fascia was closed with 0 PDS in a running fashion. Subcutaneous tissue was copiously irrigated and the skin was closed with 3-0 Monocryl in a subcuticular fashion. Mepilex dressing was applied without complication. Patient was taken to recovery in stable condition. Presentation: Positive for Vertex Amniotic Membrane Rupture Type: Artificial Amniotic Fluid Description: Clear Placental Delivery Description: Spontaneous Placenta Disposition: [facility] Cord Vessel Description: 3 Vessels Cord Entanglement: None Cord Gases: ABG (pH 7.18 BE -10) and VBG (pH 7.27) Infant A Gender: Male Delayed Cord Clamping: No Complications Risks of Surgery Discussed w/Patient: Bleeding, Infection, Need for Future C- Sections and Injury to surrounding structure(s) including bowel and bladder Vaginal Delivery Complication Complications: None Admit VTE Documentation VTE Present on Admission: No VTE Mechan Device Prophylaxis: SCD's Procedures Urinary/Genital [id number]: [id number] Delivery global pkg
[2022-02-25] MEDS: Oxytocin 30 units/NS 500 ml 30 UNITS/500 ML IV.SOLN 167 UNITS IV (11:45)
[2022-02-25 12:29] LABS: International Normalized Ratio 1.1; Partial Thromboplast Time 27.7 Seconds (24.1-36.2); Prothrombin Time (Protime)PT. 14.1 SECONDS (11.7-14.9)
[2022-02-25 12:30] LABS: Fibrinogen 320 mg/dl (203-444)
[2022-02-25] MEDS: Ketorolac 30 MG/ML Syringe IV ×2 (12:51→18:40)
[2022-02-25] MEDS: Acetaminophen 500 MG Tablet 1000 MG PO ×2 (13:29→20:22)
[2022-02-25] MEDS: HYDROmorphone 1 MG/ML Syringe IV ×3 (13:34→21:57)
[2022-02-25] MEDS: Lactated Ringers 1,000 ML 100 ML IV ×2 (14:27→23:28)
--- NOTE | 2022-02-25 16:00 | CASEMGMT ---
Social Work Labor and Delivery Responded to OB-ERT today. Present for support to the patient/mother of baby's Rod Benites. Baby is 37 weeks gestation and the second child for MOB and father of baby (FOB). Per FOB, a 2 year old daughter Gretel at home. 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 Decision made for delivery. Sat with the FOB during delivery procedure due to MOB receiving general anesthetic, and also present by the FOB during immediate postdelivery care of the , including resuscitation efforts. Emotional support offered to the FOB, and answered questions as able. FOB did take some breaks from the being with baby boy Miguel Angel to go and check on the MOB and give MOB updates. This database report writer approached by MOB's mother at the nurses station asking to see the baby and get some pictures. This database report writer to MOB's room, introducing to self and social work role. FOB at MOB's bedside. Explored with MOB that it is MOB's wish for that Miguel Angel's grandmother/MOB's mom to go and see Miguel Angel and take pictures. Explained due MOB not yet seeing the baby, this database report writer wanted to respect MOB as the mother, and ensure that this is MOB's desire for her baby boy. MOB expressed thanks for this database report writer checking, and agreed that wanted MOB's mom to be with the baby. FOB also voiced agreement. This database report writer assisted MOB's mom with proper PPE and escorted to see baby Miguel Angel. After transport team arrived to take over care of infant, this database report writer touched base with MOB and FOB again to update. MOB voiced that FOB will be going to [place] to be with Miguel Angel. Offered to get directions for the FOB, but FOB declined as knows how to get to the hospital. MOB shared that was up at [place] during with Gretel for MFM, which caused worries during , but that Gretel has been fine since delivery. MOB then commented how this has been smooth (opposite to Gretel's) with the anxiety/worry coming now that Miguel Angel is born. Emotional support offered. Let MOB know this database report writer planned to check in on MOB 02.26.2022 to see how doing. MOB voiced that would be agreeable to this. MOB appropriately tearful during social work interactions today. Plan: Social work to follow for support. -DARIA Webb, GORE CUTTER
[2022-02-25] MEDS: LORazepam 0.5 MG Tablet PO ×2 (17:21→21:56)
--- NOTE | 2022-02-25 18:12 | PCM.PN.BLA ---
Progress Note patient seen in follow up after loss. discussed additional bloodwork would be ordered to evaluate for possible cause of anemia, no maternal evidence of coagulopathy or abruption seen at time of delivery. Patient did have Covid 2 months ago, and had a normal growth US 1 week ago. support provided to family and will draw blood in am.
--- NOTE | 2022-02-25 18:30 | DCINST_ITS ---
Discharge Instructions Diet Discharge Diet: No restrictions Activity Discharge Activity: Return to Normal Activity, May Drive (when pain free and off narcotic pain meds), May Shower and May Take a Tub Bath (in 4 weeks) May resume sexual activity in: 6 weeks Weight Bearing Status: Full weight bearing Lifting Restrictions: under 30 lbs for 6 weeks Dressing / Incision Call your doctor if your incision/area has: Continuous Slow Oozing, Sudden Increased Bleeding, Increased Pain/ Swelling, Increased Redness, Foul Smelling Discharge and - Call your doctor if you observe: Fever of 101 or Higher, Using more than 1 pad per hour, Shortness of breath, Chest pain and Uncontrolled pain Suture Line Care: Avoid Pulling/Pushing and Avoid Pinching/Bending Change Dressing in: 1 week (leave open to air after removed) Remove Dressing in: 1 week (if present) Cleanse incision/area with: Soap & Water and Keep Dressing Clean & Dry Follow Up Care Please Follow Up With: Saritha Hong MD When: Call to make an appointment with your doctor for a postop visit in 2 and 6 weeks. Test Results: Test results from this visit will be discussed in further detail at your follow- up appointment, if applicable. Discharge Plan Admission Admit Date/Time: 02/25/22 10:47 Attending Provider: Saritha Hong Discharge Orders/Prescriptions Prescriptions: New lorazepam [Ativan] 0.5 mg tablet 0.5 mg PO TID PRN (Reason: anxiety) Qty: 45 0RF oxycodone-acetaminophen [Percocet] 5-325 mg tablet 1 tab PO Q6H PRN (Reason: pain) 7 Days Qty: 28 0RF naproxen [naproxen] 500 mg tablet 500 mg PO BID PRN PRN (Reason: Pain) Qty: 30 1RF No Action aspirin 81 mg tablet,delayed release (DR/EC) 81 mg PO DAILY cholecalciferol (vitamin D3) [Vitamin D3] 125 mcg (5,000 unit) Tablet 125 mcg PO DAILY 400 mcg Tablet,Chewable 2 tab PO DAILY Slow Fe 142 mg (45 mg iron) tablet extended release 142 mg PO BID Qty: 60 3RF Disposition Disposition (needs filled in before D/C Order can be placed): Home, Self Care
[2022-02-25] MEDS: 0.9% Saline Lock 10 ML Syringe IV (18:56)
--- NOTE | 2022-02-25 20:28 | NURSING ---
huerta cath discontinued per pt request. pt tolerated well
--- NOTE | 2022-02-26 00:21 | NURSING ---
0000 transport team brought back to mother. bands verified with this RN and member of transport team. mother tearful, requested time alone with infant and . states she will call when she is ready for RN to come into room for photos
[2022-02-26] MEDS: Ketorolac 30 MG/ML Syringe IV ×2 (00:50→06:25)
[2022-02-26] MEDS: Acetaminophen 500 MG Tablet 1000 MG PO ×3 (02:00→14:04)
[2022-02-26 02:13] VITALS: BP 101/55; PULSE 75; RESP 16; TEMP 36.3; O2SAT 97
[2022-02-26 06:24] VITALS: BP 94/53; PULSE 74; RESP 16; TEMP 36.3; O2SAT 97
[2022-02-26] MEDS: 0.9% Saline Lock 10 ML Syringe IV (06:26)
[2022-02-26 07:02] LABS: Hematocrit 28.7 % (37-47); Hemoglobin 9.6 g/dL (12.0-15.0); Mean Corp Hgb Conc 33.4 g/dL (32-36); Mean Corpuscular Hgb 31.6 pg (27.0-32.0); Mean Corpuscular Volume 94.4 fL (81-99); Mean Platelet Vol. 11.4 fl (6.2-12.0); Platelet Count 175 K/mm3 (150-450); RBC Distribution Width CV 14.7 % (11.6-14.6); RBC Distribution Width SD 48.1 fl (35.1-43.9); Red Blood Count 3.04 M/mm3 (4.2-5.4); White Blood Count 9.9 K/mm3 (4.4-11.0)
--- NOTE | 2022-02-26 08:03 | NURSING ---
Pt states she does not want an autopsy completed on , pt asking if [facility] staff can inform [facility] of her decision. updated-will update [place]
[2022-02-26 08:10] VITALS: BP 88/55; PULSE 64; RESP 20; TEMP 36.3; O2SAT 97
[2022-02-26 08:16] LABS: Hemoglobin A1c < 3.5 % (3.8-5.6)
[2022-02-26] MEDS: Senna/Docusate Sodium 1 Tablet PO (11:14)
[2022-02-26 11:18] LABS: Kleihauer-Betke POSITIVE
--- NOTE | 2022-02-26 11:53 | NURSING ---
PHQ-2 not completed as pt. is answering I don't know to most questions asked this am - in regards to pain level, if there is anything else that she needs. Not sure that pt. will answer questions when asked. Discussed this with SW, and she will assess when she goes in to see pt.
--- NOTE | 2022-02-26 12:23 | PCM.PN.OB ---
Subjective Subjective coping appropriately no CP SOB pain controlled, ambulating tolerating po Objective Data Objective Data Vital Signs: Vital Signs Temp Pulse Resp BP Pulse Ox O2 Del Method 97.4 F L 64 20 H 88/55 L 97 Room Air 02/26/22 08:10 02/26/22 08:10 02/26/22 08:10 02/26/22 08:10 02/26/22 08:10 02/26/22 08:10 Oxygen Delivery Method Room Air Weight: 160 lb Body Mass Index (BMI) 30.2 Intake & Output: Intake and Output for Last 24 Hours 02/24/22 02/25/22 02/26/22 23:59 23:59 23:59 Intake Total 3856.00 / 3856.00 695 / 695 Output Total 1800 / 1800 700 / 700 Balance 2056.00 / 2056.00 -5 / -5 Lab / Micro Data Result Diagrams: 02/26/22 06:50 Labs: Laboratory Results - last 24 hr 02/25/22 11:17: PT 14.1, INR 1.1, APTT 27.7, Fibrinogen 320 02/25/22 11:17: Kleihauer-Betke F Hgb POSITIVE H 02/26/22 06:50: WBC 9.9, RBC 3.04 L, Hgb 9.6 L, Hct 28.7 L, MCV 94.4, MCH 31.6, MCHC 33.4, RDW Std Deviation 48.1 H, RDW Coeff of Duane 14.7 H, Plt Count 175, MPV 11.4 02/26/22 06:50: TSH 1.80 02/26/22 06:50: Hemoglobin A1c < 3.5 L ROS Constitutional Constitutional: Reports systems reviewed and no addt'l complaints, except as documented Cardiovascular Cardiovascular: Reports systems reviewed and no addt'l complaints, except as documented Respiratory/Chest Respiratory/Chest: Reports systems reviewed and no addt'l complaints, except as documented Gastrointestinal Gastrointestinal: Reports systems reviewed and no addt'l complaints, except as documented Physical Exam Const alert, oriented x3 and no apparent distress HEENT Head and Scalp: atraumatic Resp normal respiratory effort GI soft to palpation and non-tender Inspection: incision intact, healing well and drainage (none) Bimanual Exam - Vag & Uterus: uterus non-tender Uterus Palpation: uterus fundus firm (below Umbilicus) Assessment & Plan (1) delivery delivered: COMMENT: 37 LTCS SM dec fm FHT decels cat II tracing PLAN: Plan s/p LTCS loss- KB positive 127 ml routine postop care support given for loss, pain medication for pain control
--- NOTE | 2022-02-26 13:50 | CASEMGMT ---
Social Work Labor and Delivery Reason for intervention: Follow up for support regarding OB-ERT on 02.25.2022 with subsequent transfer of baby to [facility] NICU. Social work consults then placed on 02.25.2022 at 1757 for bereavement/ loss. Summary: Spoke with nursing staff and learned that at [facility] on 02.25.2022. Baby Miguel Angel has since been brought back to [facility] for parents to have time with the baby. Spoke with Ariadne Chacon RN about PHQ2 completion. This communications writer plans to explore history of emotional health, so agreed that can address depression screening with patient. Met patient/mother of baby (MOB), father of baby (FOB), and MOB?s father in room. MOB holding baby jerald Michelle. Reintroduced to self and role. Checked in on how MOB, FOB and family are doing. FOB quiet, but when asked admitted to being overwhelmed. MOB reports to not really be sure how feeling right now, and but does feel numb. MOB admits a lot of information has been given, but also going at MOB's pace. This communications writer acknowledged that MOB and family have just gone through so much in an extremely concentrated amount of time. Touched on grief and depression. Explored any history of depression after of Gretel, voicing that if not an okay topic to discuss with others then to let this communications writer know. MOB voiced that has had a counselor in the past and is aware that may need to see a counselor again. Addressed that depression is part of grief, and that both mothers and fathers can be impacted. Discussed with MOB that depression screening is routinely done, which MOB voiced agreement to complete. Asked FOB and MOB?s father to step out for completion. Both did so willingly. During private conversation with MOB reviewed the PHQ9, focusing on feelings prior to loss of baby yesterday. Score is low, in none to minimal range of depression. MOB acknowledges feeling may be different in the last 24 hours. MOB denies any history of, or current thoughts related to suicide or harm to others. No history of self-harm. MOB is future focused. Explored family history of emotional health concerns. 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 MOB reports counseling at [facility] and believes was seeing Trinh. Reports would go back to this agency and will likely work on this in the future. MOB reports her sister has a history of depression and self-harm (but again, MOB denies the self-harm for self). Emotional support, encouragement, reflection, and validation offered. Encouraged self-care and rest. MOB reports to have a good support system from family and some friends. Offered to call hospital divider operator as another outlet for support. MOB stated did not want the divider operator called, that a divider operator was present at [place] and this is enough in MOB?s perspective. Provided MOB with this communications writer?s card in case of any questions in the future, as well as list of counselors, information on parents and grief, online supports for parent grief including online support groups. MOB accepted information. MOB did ask about the home, which this communications writer answered questions. Also broached with MOB to think about how would like to discharge, and hand baby off to the home, what would be most meaningful for the MOB. Left room and let FOB and MOB?s father know can return back to room. MOB?s mom present then. MOB?s parents left the room that had been sitting in and FOB remained on couch. This communications writer sat with FOB, offered condolences, as well as opportunity to talk about anything that wanted to talk about. With social work exploration, this communications writer explored FOB?s experiences with Miguel Angel at [place]. FOB shared about this and expressed that the experience brought back memories and feeling related to FOB?s grandfather dying. Emotional support offered. Explored whether FORita is going to be able to take any time off of work for own grieving. FOB shared that he did leave his job (decision made prior to delivery) so will have some time off. Denies any financial concerns at this time. This communications writer encouraged FOB to seek out support when needed and validated that is okay to express emotions. Broached counseling as an option for support and processing of events and emotions, even for dads. This communications writer offered to call [facility] divider operator if FOB desired, referencing that this communications writer was aware that a divider operator was presented at [place]. FOB reported that not certain how divider operator arrived in [place], but declined another divider operator visit while at [place]. Denies any evangel[place] community in life at this time or growing up. Emotional support, encouragement, reflection, and validation offered to the FOB. Encouraged self-care and rest. Both parents appearing sad, appropriately so. MOB cried off and on, good eye contact, affect constricted. FOB tense, teary eyed but appeared to be holding emotions in. Both MOB and FOB appearing receptive to have some time to talk to where they are currently at after loss of son. Plan: MOB and FOB will discharge home, whether going to their own home or to parents? home for added support. MOB and FOB have been given resources for support in the community, as well as this communications writer's car should have questions about information given. No other services requested or indicated. -DARIA Webb, MILENA
[2022-02-26] MEDS: Naproxen 500 MG Tablet PO (14:05)
[2022-02-26 16:45] VITALS: BP 95/58; PULSE 81; RESP 16; TEMP 36.6; O2SAT 98
[2022-02-26] MEDS: LORazepam 0.5 MG Tablet PO (16:45)
[2022-02-27 14:11] LABS: Toxoplasma Gondii IgG < 3.0 IU/mL (0.0-7.1)
[2022-03-01 06:07] LABS: Dilute Prothrombin Time (dPT) 34.7 sec (0.0-47.6); Dilute Russell Viper Venom 32.2 sec (0.0-47.0); PTT-LA 37.1 sec (0.0-51.9); dPT Confirm Ratio 1.19 Ratio (0.00-1.34)
[2022-03-01 10:52] LABS: Anti-Cardiolipin Ab, IgA, Qn < 9 APL U/mL (0-11); Anti-Cardiolipin Ab, IgG, Qn < 9 GPL U/mL (0-14); Anti-Cardiolipin Ab, IgM, Qn < 9 MPL U/mL (0-12); Beta-2-Glycoprotein I IgA <9 (0-25); Beta-2-Glycoprotein I IgG <9 (0-20); Beta-2-Glycoprotein I IgM <9 (0-32); CMV Acute Antibody IgM < 30.0 AU/mL (0.0-29.9); CMV Antibody IgG < 0.60 U/mL (0.00-0.59); Interpretation Comment: (.); PARVOVIRUS B19 IGG 0.6 index (0.0-0.8); PARVOVIRUS B19 IGM 0.3 index (0.0-0.8); Toxoplasma Gondii IgM < 3.0 AU/mL (0.0-7.9)
--- NOTE | 2022-03-01 15:26 | NURSING ---
Phone call made to Yessi today to check on how she is doing. Reports that she is using Aleve and Tylenol for pain, and that is pretty much working for that. Reports that she is using ativan as needed, and that is helping her as well. She is able to sleep some, and able to eat. Reports that it was great to be able get home to be with Gretel, and that while it doesn't make the hurting stop, it does make the pain better. Went over d/c instructions a little more regarding follow-up in the office and weight-lifting restriction as we had not been able to go over the paper in much detail prior to her leaving on friday. She reported that the office made her follow-up appts for her, and that is done, and that she had prepped for not being able to lift Gretel prior to coming in to hospital. Pt. remains unsure of needs at this point, but sounds hopeful on phone. Encouraged to call here or to office with needs, and/or to seek out [id number] facebook page for support. Will call about 1 month from Miguel Angel's to check in on her as well, and will schedule time to get photos at that time. Pt. agreeable to this.
--- NOTE | 2022-04-08 12:57 | NURSING ---
Yessi called in this am to check on momentos and photos. Reported to Yessi that we are still waiting on edited photos to come back from the school photographer, but that her other items were being packaged up today. Yessi is anxious to get these items, as they are going out of town 04/18, and would like to have the items then. Reports that she has a follow-up appt. with Dr. Hong friday, 04/16, and she would like to stop in to get whatever is available at that time. Will plan to meet with Viridiana for those items. Asked Yessi how she was doing, and she reported I still don't know. Encouraged to call back prn.
== END 2022-02-26 17:45 | disposition home or self-care (01) | DRG 788 ==
LOC: WPOUT 10:48 → WP 10:48
PROVIDERS: Admitting Provider Obstetrics & Gynecology; Visit Provider Obstetrics & Gynecology
DX: O77.9 Labor and delivery complicated by fetal stress, unspecified (principal); O99.814 Abnormal glucose complicating childbirth; O36.8230 Fetal anemia and thrombocytopenia, third trimester, not applicable or unspecified; Z79.82 Long term (current) use of aspirin; Z86.32 Personal history of gestational diabetes; Z86.16 Personal history of COVID-19; Z3A.37 37 weeks gestation of pregnancy; Z37.1 Single stillbirth
CPT/HCPCS: 59025; 59050; 83036; 84443; 85027; 85384; 85460; 85610; 85730; 86146; 86147; 86644; 86645; 86747; 86777; 86778; 86850; 86900; 86901; 99218; J7120; A4216; G0378; J2405

== ENCOUNTER → 2022-04-15 | Outpatient (CLI) | payer OTHER, SELFPAY ==
[2022-04-15 17:17] LABS: T4 Free Direct 0.91 ng/dL (0.76-1.46); Thyroid Stim Hormone (TSH) 0.99 uIU/mL (0.358-3.74)
[2022-04-17 10:55] LABS: Thyroid Peroxidase AB 15 IU/mL (0-34)
== END | disposition home or self-care (01) ==
LOC: LAB 16:20
PROVIDERS: Referring Provider Obstetrics & Gynecology; Visit Provider Obstetrics & Gynecology
DX: E01.0 Iodine-deficiency related diffuse (endemic) goiter (principal)
CPT/HCPCS: 36415; 84439; 84443; 86376

== ENCOUNTER → 2022-04-30 | Outpatient (CLI) | payer OTHER, SELFPAY ==
--- NOTE | 2022-04-30 12:45 | US_ITS ---
STUDY: THYROID ULTRASOUND REASON FOR EXAM: Female, 32 years old. thyromegaly TECHNIQUE: Ultrasound evaluation of the thyroid was performed with real-time and static brownlee-scale imaging. COMPARISON: None. FINDINGS: RIGHT LOBE: The right lobe of the thyroid gland measures 5.1 x 2.1 x 1.6 cm. There is a heterogeneous echotexture. There are no demonstrated solid, cystic or complex lesions. LEFT LOBE: The left lobe of the thyroid gland measures 4.7 x 1.6 x 1.3 cm. cm. There is a heterogeneous echotexture. There is a left lower pole 1.3 x 1.9 x 0.4 cm hypoechoic focus. This could represent hypoechoic nodule or parathyroid tissue. ISTHMUS: The isthmus measures 0.2 cm . The regional lymph nodes are normal. US/Thyroid IMPRESSION: Left lower pole parathyroid versus hypoechoic nodule 1.3 x 1.9 x 0.4 cm. Electronically Signed: Monster Jimenez MD, QUEENIE at 8:26 EDT ,
== END | disposition home or self-care (01) ==
LOC: US 12:44
PROVIDERS: Referring Provider Obstetrics & Gynecology; Visit Provider Obstetrics & Gynecology
DX: E01.0 Iodine-deficiency related diffuse (endemic) goiter (principal)
CPT/HCPCS: 76536

== ENCOUNTER → 2022-05-13 | Outpatient (CLI) | payer OTHER, SELFPAY ==
--- NOTE | 2022-05-13 | FLU_PTH ---
PATIENT: KIKO ANNE LOC: [facility] U#:[id number] AGE/SX: 32/F ROOM: RE05/13/[address]: Dr. Reginaldo Saravia MD : 1990 BED: DIS: 05/13/2022 SPEC #: [id number] RECD: 05/13/22 16:37 STATUS: DIA FELIPE #: [id number] YESIKA: 05/13/22 00:[address]: Reginaldo Sarvaia DEPT: CYTOLOGY RECD BY: Eugenio Chaudhary ENTERED: 05/14/22 08:59 SP TYPE: Fluid OTHR DR: No Primary Care Phys Tissues: A - Thyroid gland, NOS B - Thyroid gland, NOS Procedures: Special Stain Group II Surgery Specimen Level IV Cytospin Fluid HEADER OPERATION: Left thyroid fine needle aspiration PRE-OP DIAGNOSIS: Left thyroid nodule TISSUE SUBMITTED: A - Left lower pole thyroid nodule fluid, B - Left lower pole thyroid nodule x6 slides DIAGNOSIS CYTOLOGY A. Fine needle aspiration, left lower pole thyroid nodule (cytospin and cell block): Negative, consistent with benign follicular/colloid nodule (Wood[place]ine Category II). See comment. B. Fine needle aspiration, left lower pole thyroid nodule (smears): Benign, consistent with benign follicular nodule (Wood[place]ine Category II). See comment. AM:natalie 05/15/2022 COMMENT A & B. The [place] System for thyroid diagnostic categorization was used in the evaluation of this case. The specimen is adequate for evaluation. CYTOLOGY STUDY Slides are reviewed. CYTOLOGY GROSS A - Received is 35 ml of red cloudy fluid labeled with the patient's name and and designated per the requisition as left lower pole thyroid nodule. Submitted for cytology preparation including cell block. B - Received are six smears labeled with the patient's name and designated per the requisition as left lower pole thyroid nodule. Submitted for staining. / natalie 05/14/2022 TC:5 CPT: 85625, 09529 x2
== END | disposition home or self-care (01) ==
LOC: LABSPEC 16:44
PROVIDERS: Visit Provider Surgery
DX: E04.1 Nontoxic single thyroid nodule (principal)
CPT/HCPCS: 88108; 88305; 88313

== ENCOUNTER → 2022-05-24 | Outpatient (CLI) | payer OTHER, SELFPAY ==
[2022-05-24 12:20] LABS: NATERA MAILED SPECIMEN
== END | disposition home or self-care (01) ==
LOC: LAB 11:17
PROVIDERS: Referring Provider Obstetrics & Gynecology; Visit Provider Obstetrics & Gynecology
DX: Z87.59 Personal history of other complications of pregnancy, childbirth and the puerperium (principal)
CPT/HCPCS: 36415

== ENCOUNTER → 2022-10-31 | Outpatient (CLI) | payer OTHER, SELFPAY ==
[2022-10-31 18:46] LABS: hCG Titer Quant., Serum < 1 mIU/mL (1-3)
== END | disposition home or self-care (01) ==
LOC: LAB 17:42
PROVIDERS: Referring Provider Obstetrics & Gynecology; Visit Provider Obstetrics & Gynecology
DX: N91.2 Amenorrhea, unspecified (principal)
CPT/HCPCS: 36415; 84702

== ENCOUNTER → 2022-11-04 | Outpatient (CLI) | payer OTHER, SELFPAY ==
[2022-11-04 18:37] LABS: hCG Titer Quant., Serum < 1 mIU/mL (1-3)
== END | disposition home or self-care (01) ==
LOC: LABSPEC 16:40
PROVIDERS: Referring Provider Nurse Practitioner Women's Health; Visit Provider Nurse Practitioner Women's Health
DX: N91.2 Amenorrhea, unspecified (principal)
CPT/HCPCS: 36415; 84702

== ENCOUNTER → 2023-01-12 | Outpatient (CLI) | payer OTHER, SELFPAY ==
[2023-01-12 08:29] LABS: hCG Titer Quant., Serum 122 mIU/mL (1-3)
== END | disposition home or self-care (01) ==
LOC: LAB 07:51
PROVIDERS: Referring Provider Obstetrics & Gynecology; Visit Provider Obstetrics & Gynecology
DX: N91.2 Amenorrhea, unspecified (principal)
CPT/HCPCS: 36415; 84702

== ENCOUNTER → 2023-01-14 | Outpatient (CLI) | payer OTHER, SELFPAY ==
[2023-01-14 08:12] LABS: hCG Titer Quant., Serum 154 mIU/mL (1-3)
== END | disposition home or self-care (01) ==
LOC: LAB 06:06
PROVIDERS: Referring Provider Obstetrics & Gynecology; Visit Provider Obstetrics & Gynecology
DX: N91.2 Amenorrhea, unspecified (principal)
CPT/HCPCS: 36415; 84702

== ENCOUNTER → 2023-01-14 | Outpatient (CLI) | payer OTHER, SELFPAY ==
--- NOTE | 2023-01-14 11:21 | US_ITS ---
INDICATION: Bleeding. viabiity/ectopic STAT -- Call Dr. Hong [phone] with results EXAMINATION: Ultrasound US OB Transvaginal TECHNIQUE: Transabdominal pelvic ultrasound was performed. Grayscale, spectral waveform, and color flow Doppler evaluation of the adnexa. COMPARISON: No relevant prior comparison study available LMP: [December 19, 2022 Beta-hC FINDINGS: UTERUS: 7.2 x 5.4 x 5.0 cm. The endometrial stripe measures 6.1 mm. There is no intrauterine visualized. RIGHT OVARY: 3.0 x 1.2 x 2.7 cm. Normal. LEFT OVARY: 2.7 x 1.5 x 2.4 cm. There is a corpus luteal cyst within the left ovary. The Doppler flow to the left ovary is within normal limits. FREE FLUID: None. US/Transvaginal w/Preg US IMPRESSION: Within normal limits pelvic ultrasound with no intrauterine identified. Electronically Signed: Blanca Lora MD at 12:19 EDT ,
== END | disposition home or self-care (01) ==
LOC: US 11:20
PROVIDERS: Referring Provider Obstetrics & Gynecology; Visit Provider Obstetrics & Gynecology
DX: O20.0 Threatened abortion (principal); Z3A.00 Weeks of gestation of pregnancy not specified
CPT/HCPCS: 76817

== ENCOUNTER → 2023-01-16 | Outpatient (CLI) | payer OTHER, SELFPAY ==
[2023-01-16 10:36] LABS: hCG Titer Quant., Serum 135 mIU/mL (1-3)
[2023-01-19 13:06] LABS: Anti-Cardiolipin Ab, IgA, Qn < 9 APL U/mL (0-11); Anti-Cardiolipin Ab, IgG, Qn < 9 GPL U/mL (0-14); Anti-Cardiolipin Ab, IgM, Qn < 9 MPL U/mL (0-12); Beta-2-Glycoprotein I IgA <9 (0-25); Beta-2-Glycoprotein I IgG <9 (0-20); Beta-2-Glycoprotein I IgM <9 (0-32); Dilute Prothrombin Time (dPT) 37.8 sec (0.0-47.6); Dilute Russell Viper Venom 38.6 sec (0.0-47.0); Interpretation Comment: (.); PTT-LA 35.1 sec (0.0-43.5); dPT Confirm Ratio 0.97 Ratio (0.00-1.34)
[2023-01-20 10:44] LABS: hCG Titer Quant., Serum 233 mIU/mL (1-3)
== END | disposition home or self-care (01) ==
PROVIDERS: Referring Provider Obstetrics & Gynecology; Visit Provider Obstetrics & Gynecology
DX: O20.0 Threatened abortion (principal); Z3A.00 Weeks of gestation of pregnancy not specified; O26.20 Pregnancy care for patient with recurrent pregnancy loss, unspecified trimester
CPT/HCPCS: 36415; 84702; 86146; 86147

== ENCOUNTER → 2023-01-22 | Outpatient (CLI) | payer OTHER, SELFPAY ==
--- NOTE | 2023-01-22 12:13 | US_ITS ---
STUDY: FIRST TRIMESTER OBSTETRICAL ULTRASOUND REASON FOR EXAM: Female, 32 years old incomplete LMP: December 28, 2022. TECHNIQUE: Transvaginal TECHNICAL QUALITY: Adequate. PRIOR ULTRASOUND: Comparison is made with prior study dated January 14, 2023. FINDINGS: There is no demonstrated intrauterine gestational sac. There is no demonstrated yolk sac. The placenta is non-visualized. There is no demonstrated embryo ( pole). The estimated gestation age (EGA) by LMP is 3 weeks, 4 days. The estimated date of delivery (ANISA) by LMP is October 04, 2023. The uterus measures 7.4 cm x 5.5 cm x 4.9 cm. The endometrium measures 7 mm. There is no demonstrated uterine fibroid. The cervix is closed. The right ovary measures 2.4 cm x 2 cm x 1.6 cm. There is no right ovarian cyst. There is no visualized right adnexal mass or complex lesion. The left ovary measures 3.2 cm x 1.8 cm x 1.5 cm. There is no left ovarian cyst. There is no visualized left adnexal mass or complex lesion. There is no fluid in the cul de sac. US/Transvaginal w/Preg US IMPRESSION: No intrauterine gestation is seen. Electronically Signed: Darwin Page MD at 13:15 EDT ,
[2023-01-22 12:30] LABS: hCG Titer Quant., Serum 321 mIU/mL (1-3)
== END | disposition home or self-care (01) ==
LOC: OPUS 10:14
PROVIDERS: Referring Provider Obstetrics & Gynecology; Visit Provider Obstetrics & Gynecology
DX: O03.4 Incomplete spontaneous abortion without complication (principal)
CPT/HCPCS: 76817; 84702

== ENCOUNTER → 2023-01-23 | Outpatient (CLI) | payer OTHER, SELFPAY ==
[2023-01-23 11:02] LABS: Absolute Lymphocyte Count 2.41 X10^3/uL (0.83-4.51); Absolute Neutrophil Count 3.6 X10^3/uL (2.0-7.7); Basophil# 0.06 X10^3/uL; Basophil% 0.9 % (0-1); Eosinophil# 0.12 X10^3/uL; Eosinophils% 1.8 % (0-5); Hematocrit 37.2 % (37-47); Hemoglobin 12.4 g/dL (12.0-15.0); Lymphocyte # 2.41 X10^3/ul (0.83-4.51); Lymphocyte % 35.9 % (19-41); Mean Corp Hgb Conc 33.3 g/dL (32-36); Mean Corpuscular Hgb 30.3 pg (27.0-32.0); Mean Platelet Vol. 11.6 fl (6.2-12.0); Monocyte# 0.49 X10^3/uL; Monocyte% 7.3 % (0-10); NRBC Flagged by Analyzer 0 % (0-5); Neutrophil # 3.62 X10^3/uL (2.7-7.7); Platelet Count 272 K/mm3 (150-450); RBC Distribution Width CV 12.1 % (11.6-14.6); RBC Distribution Width SD 40.2 fl (35.1-43.9); Red Blood Count 4.09 M/mm3 (4.2-5.4); White Blood Count 6.7 K/mm3 (4.4-11.0)
[2023-01-23 11:44] LABS: AST(SGOT) 17 U/L (15-37); Alanine Aminotransfer ALT/SGPT 17 U/L (13-56); Albumin, Serum 3.9 g/dL (3.2-5.0); Alkaline Phosphatase 82 U/L (45-117); Anion Gap 4 (5-15); BUN 8 mg/dL (7-18); Calcium,Total 8.9 mg/dL (8.5-10.1); Chloride 105 mmol/L (98-107); Creatinine, Serum 0.73 mg/dL (0.55-1.02); EST Glomerular Filtration Rate 99 mL/min (>60); Est Glom Filt Rate - Afr Amer 119 mL/min (>60); Glucose 96 mg/dL (74-106); Potassium 3.9 mmol/L (3.5-5.1); Protein, Total 7.9 g/dL (6.4-8.2); Sodium Level 137 mmol/L (136-145)
[2023-01-23 11:46] LABS: hCG Titer Quant., Serum 407 mIU/mL (1-3)
== END | disposition home or self-care (01) ==
LOC: PAVLAB 10:35
PROVIDERS: Referring Provider Obstetrics & Gynecology; Visit Provider Obstetrics & Gynecology
DX: O20.0 Threatened abortion (principal); Z3A.00 Weeks of gestation of pregnancy not specified
CPT/HCPCS: 36415; 80053; 84702; 85025

== ENCOUNTER → 2023-01-26 | Outpatient (CLI) | payer OTHER, SELFPAY ==
[2023-01-26 13:12] LABS: hCG Titer Quant., Serum 474 mIU/mL (1-3)
== END | disposition home or self-care (01) ==
LOC: LAB 11:35
PROVIDERS: Visit Provider Obstetrics & Gynecology
DX: O20.0 Threatened abortion (principal); Z3A.00 Weeks of gestation of pregnancy not specified
CPT/HCPCS: 36415; 84702

== ENCOUNTER → 2023-01-29 | Outpatient (CLI) | payer OTHER, SELFPAY ==
[2023-01-29 09:10] LABS: hCG Titer Quant., Serum 361 mIU/mL (1-3)
== END | disposition home or self-care (01) ==
LOC: LAB 08:00
PROVIDERS: Referring Provider Obstetrics & Gynecology; Visit Provider Obstetrics & Gynecology
DX: O20.0 Threatened abortion (principal); Z3A.00 Weeks of gestation of pregnancy not specified
CPT/HCPCS: 36415; 84702

== ENCOUNTER → 2023-02-05 | Outpatient (CLI) | payer OTHER, SELFPAY ==
[2023-02-05 09:04] LABS: hCG Titer Quant., Serum 154 mIU/mL (1-3)
== END | disposition home or self-care (01) ==
LOC: LAB 08:01
PROVIDERS: Referring Provider Obstetrics & Gynecology; Visit Provider Obstetrics & Gynecology
DX: O00.90 Unspecified ectopic pregnancy without intrauterine pregnancy (principal)
CPT/HCPCS: 36415; 84702

== ENCOUNTER → 2023-02-12 | Outpatient (CLI) | payer OTHER, SELFPAY ==
[2023-02-12 09:14] LABS: hCG Titer Quant., Serum 77 mIU/mL (1-3)
== END | disposition home or self-care (01) ==
PROVIDERS: Referring Provider Nurse Practitioner Women's Health; Visit Provider Nurse Practitioner Women's Health
DX: O09.90 Supervision of high risk pregnancy, unspecified, unspecified trimester (principal); Z3A.00 Weeks of gestation of pregnancy not specified
CPT/HCPCS: 36415; 84702

== ENCOUNTER → 2023-02-19 | Outpatient (CLI) | payer OTHER, SELFPAY ==
[2023-02-19 09:36] LABS: hCG Titer Quant., Serum 36 mIU/mL (1-3)
== END | disposition home or self-care (01) ==
LOC: PAVLAB 08:38
PROVIDERS: Referring Provider Nurse Practitioner Women's Health; Visit Provider Nurse Practitioner Women's Health
DX: O09.90 Supervision of high risk pregnancy, unspecified, unspecified trimester (principal); Z3A.00 Weeks of gestation of pregnancy not specified
CPT/HCPCS: 36415; 84702

== ENCOUNTER → 2023-03-05 | Outpatient (CLI) | payer OTHER, SELFPAY ==
[2023-03-05 08:59] LABS: hCG Titer Quant., Serum 7 mIU/mL (1-3)
[2023-03-05 14:25] LABS: Absolute Neutrophil Count 4.1 X10^3/uL (2.0-7.7); Basophil# 0.04 X10^3/uL; Basophil% 0.6 % (0-1); Eosinophil# 0.16 X10^3/uL; Eosinophils% 2.2 % (0-5); Hematocrit 36.2 % (37-47); Hemoglobin 11.5 g/dL (12.0-15.0); Mean Corp Hgb Conc 31.8 g/dL (32-36); Mean Corpuscular Hgb 29.9 pg (27.0-32.0); Mean Corpuscular Volume 94.3 fL (81-99); Monocyte# 0.54 X10^3/uL; Monocyte% 7.5 % (0-10); NRBC Flagged by Analyzer 0 % (0-5); Neutrophil # 4.12 X10^3/uL (2.7-7.7); Neutrophil % 57.4 % (47-70); Platelet Count 279 K/mm3 (150-450); RBC Distribution Width CV 12.9 % (11.6-14.6); RBC Distribution Width SD 43.8 fl (35.1-43.9); Red Blood Count 3.84 M/mm3 (4.2-5.4); White Blood Count 7.2 K/mm3 (4.4-11.0)
== END | disposition home or self-care (01) ==
LOC: LAB 08:25
PROVIDERS: Referring Provider Nurse Practitioner Women's Health; Visit Provider Nurse Practitioner Women's Health
DX: N92.0 Excessive and frequent menstruation with regular cycle (principal); Z3A.00 Weeks of gestation of pregnancy not specified
CPT/HCPCS: 36415; 84702; 85025

== ENCOUNTER → 2023-03-12 | Outpatient (CLI) | payer OTHER, SELFPAY ==
[2023-03-12 08:37] LABS: hCG Titer Quant., Serum 4 mIU/mL (1-3)
== END | disposition home or self-care (01) ==
LOC: LAB 07:44
PROVIDERS: Referring Provider Obstetrics & Gynecology; Visit Provider Obstetrics & Gynecology
DX: O00.90 Unspecified ectopic pregnancy without intrauterine pregnancy (principal)
CPT/HCPCS: 36415; 84702

== ENCOUNTER → 2023-03-18 | Outpatient (CLI) | payer OTHER, SELFPAY ==
[2023-03-18 13:43] LABS: hCG Titer Quant., Serum 3 mIU/mL (1-3)
== END | disposition home or self-care (01) ==
LOC: PAVLAB 13:01
PROVIDERS: Obstetrics & Gynecology; Referring Provider Obstetrics & Gynecology; Visit Provider Obstetrics & Gynecology
DX: O09.90 Supervision of high risk pregnancy, unspecified, unspecified trimester (principal); Z3A.00 Weeks of gestation of pregnancy not specified
CPT/HCPCS: 36415; 84702

== ENCOUNTER → 2023-04-28 | Outpatient (CLI) | payer OTHER, SELFPAY ==
[2023-04-28 15:22] LABS: Thyroid Stim Hormone (TSH) 1.16 uIU/mL (0.358-3.74)
[2023-04-30 04:07] LABS: Thyroid Peroxidase AB 23 IU/mL (0-34)
== END | disposition home or self-care (01) ==
LOC: LAB 13:49
PROVIDERS: Referring Provider Obstetrics & Gynecology; Visit Provider Obstetrics & Gynecology
DX: E04.1 Nontoxic single thyroid nodule (principal); Z13.29 Encounter for screening for other suspected endocrine disorder
CPT/HCPCS: 36415; 84439; 84443; 86376

== ENCOUNTER → 2023-05-15 | Outpatient (CLI) | payer OTHER, SELFPAY ==
--- NOTE | 2023-05-15 12:18 | US_ITS ---
STUDY: THYROID ULTRASOUND REASON FOR EXAM: Female, 33 years old. nodule TECHNIQUE: Ultrasound evaluation of the thyroid was performed with real-time and static brownlee-scale imaging. COMPARISON: 04/30/2022 FINDINGS: RIGHT LOBE: The right lobe of the thyroid gland measures 5.1 x 2.0 x 1.7 cm. There is a homogeneous echotexture. There are no demonstrated solid, cystic or complex lesions. LEFT LOBE: The left lobe of the thyroid gland measures 5.0 x 1.7 x 1.7 cm. There is a homogeneous echotexture. Nodule 1: No change in the 11 x 8 x 8 mm solid hypoechoic wider than tall ill-defined margin nodule with no echogenic foci (TR 4) in the posterior left lobe and follow-up ultrasound is recommended in one year. ISTHMUS: The isthmus measures 3 mm thick. . The regional lymph nodes are normal. US/Thyroid IMPRESSION: No change in dominant nodule in the left lobe and follow-up ultrasound is recommended in one year. Electronically Signed: Hugo Bocanegra MD at 23:30 EDT ,
== END | disposition home or self-care (01) ==
PROVIDERS: Referring Provider Surgery; Visit Provider Surgery
DX: E04.1 Nontoxic single thyroid nodule (principal)
CPT/HCPCS: 76536

== ENCOUNTER 2023-06-17 13:05 | Day surgery (SDC) | payer OTHER, SELFPAY ==
[2023-06-13 13:29] LABS: Hematocrit 37.8 % (37-47); Hemoglobin 12.5 g/dL (12.0-15.0); Mean Corp Hgb Conc 33.1 g/dL (32-36); Mean Corpuscular Volume 90.9 fL (81-99); Mean Platelet Vol. 11.7 fl (6.2-12.0); Platelet Count 279 K/mm3 (150-450); RBC Distribution Width CV 12.4 % (11.6-14.6); RBC Distribution Width SD 40.6 fl (35.1-43.9); Red Blood Count 4.16 M/mm3 (4.2-5.4)
[2023-06-17] VITALS (7 sets, daily range): BP systolic 101–113; BP diastolic 60–72; PULSE 65–97; RESP 14–18; TEMP 36.3–36.8; O2SAT 96–100; BMI 30.2
[2023-06-17 13:35] LABS: Internal QC Validated? YES +Cl - CLEAR BKGD
[2023-06-17 13:36] LABS: Pregnancy, Urine Negative Negative; Record Kit Lot#,Urine Preg 667200
[2023-06-17] MEDS: Lactated Ringers 1,000 ML 15 ML IV ×2 (13:45→17:44)
--- NOTE | 2023-06-17 14:13 | PCM.HP.BLA ---
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 Is patient in pain?: No Allergies No Known Allergies Allergy (Verified 05/26/23 13:38) Medications lorazepam 0.5 mg tablet (Ativan) 0.5 mg PO TID PRN anxiety #30 tabs 04/15/22 [Rx Confirmed 05/26/23] folic acid 20 mg capsule 20 mg PO DAILY 07/04/22 [History Confirmed 05/26/23] naproxen 500 mg tablet 500 mg PO Q12H #30 tabs 08/07/22 [Rx Confirmed 05/26/23] citalopram 20 mg tablet 20 mg PO DAILY #90 tabs 10/30/22 [Rx Confirmed 05/26/23] Post menopausal: No Patient : No : No PFSH Medical History 39 weeks gestation of Abnormal Pap smear of cervix Acute wheezy bronchitis Asthma delivery delivered Cyst of face Decreased movements in third trimester Frequent headaches Gestational diabetes Right ankle sprain Right foot sprain Right wrist sprain SGA (small for gestational age), , affecting care of mother, antepartum Sprain of right hand Surgical History History of tonsillectomy Family History Grandmother Breast cancer Lung cancerFather HypertensionMother Hypertension Thyroid disorder AsthmaGrandfather Colon cancer Lung cancerMother DiabetesSister Depression Social History household members: spouse and children housing: house current occupational status: employed current occupation: [employer] pets and animals: Yes Smoking Status: Never smoker alcohol intake: never substance use type: does not use what type of physical activity do you participate in: none do you feel safe at home: Yes additional social history: - [facility] right side pain/US room Details: KIKO ANNE is a 33 year old who presents for acute on chronic right lower quadrant pain. This started happening since last year when she had an emergency section for distress. She then had an ectopic on that right side and was treated with methotrexate. She is tearful but denies nausea, vomiting, or diarrhea, no fevers or chills. History 3 Elective abortions Hx Para 1 Spontaneous abortions Hx # Term Pregnancies 2 Ectopic pregnancies Hx # Pregnancies Multiple births # of living children 1 Past Pregnancies Del. Date Name GA/Weeks Outcome Route Bth Weight Infant Gen Labor Lgth Anesthesia Del Locatn Provider FOB 12/05/19 Gretel 39 live - full term 6lbs 1oz Female [address] [facility] [address]. Erendira Velasco 02/25/22 Miguel Angel 37 live - full term Male [facility] [place] Delivery Date: 12/05/19 Last Updated by: Valerie Escoto Gestational diabetes, small for gestational age Delivery Date: 02/25/22 Last Updated by: Jaclyn Freire decl LTCS STAT. baby transported to [facility] with anemia and passed @ 181 of pulmonary hemorrhage ROS Const ROS Unobtainable: All systems reviewed & are unremarkable except as noted in H Resp Resp: Reports system reviewed and no additional complaints, except as documented; Denies cough GI GI: Reports as per HPI Psych Psych: Reports system reviewed and no additional complaints, except as documented Exam Const General: cooperative, healthy appearing, comfortable and no acute distress Resp Effort & Inspection: normal respiratory effort General: bimanual renal exam normal bilaterally External Female Exam: normal appearance of the urethra Urethra: normal appearance of the urethra Speculum Exam - Vagina: normal appearance of the vagina Speculum Exam - Cervix: normal appearance of the cervix Bimanual Exam- Adnexa, other: normal adnexae and normal Pelvic Support: normal Other: ultrasound shows a cluster of cysts on the right ovary as well as some free fluid. There is a complex cyst measuring 2cm along with multiple follicles. The endometrium is thin Skin General: no rashes or lesions noted Psych Appearance: grossly normal Speech and Movement: speech and movement normal Coding Level of Care Code Off vis,est,level 3 Diagnoses Pelvic pain R10.2 Assessment and Plan Assessment and Plan (1) Pelvic pain: Status: Acute Plan: ongoing right lower quadrant pelvic pain and h/o ectopic . recommend test first ultimately recommend diagnostic laparoscopy chromopertubation of fallopian tubes for diagnosis of pelvic pain, suspicious for scar tissue or endometriosis. After discussing the patient's diagnosis and treatment plan options, patient wishes to proceed with surgical management. I have discussed with the patient the risks, benefits, and alternatives of the procedure which include but are not limited to risks of anesthesia, bleeding, infection, possible damage to bowel, bladder, or surrounding vasculature which could lead to additional surgery to evaluate any complications. Patient agrees to procedure and wishes to proceed. ACOG/uptodate references given for additional information regarding procedure.
--- NOTE | 2023-06-17 15:56 | DCINST_ITS ---
Discharge Instructions Diet Discharge Diet: No restrictions Activity Discharge Activity: Return to Normal Activity, May Not Drive (for two weeks or while taking narcotic pain medications.), May Shower and May Take a Tub Bath (in 7 days) May resume sexual activity in: 1 week Weight Bearing Status: Full weight bearing Dressing / Incision Call your doctor if you observe: Using more than 1 pad per hour, Shortness of breath, Chest pain and Uncontrolled pain Suture Line Care: Avoid Pulling/Pushing and Avoid Pinching/Bending Remove Dressing in: 1 week (if present) Cleanse incision/area with: Soap & Water and Keep Dressing Clean & Dry Follow Up Care Please Follow Up With: Analia Mcgregor DO When: Call to make an appointment with your doctor for a follow up incision check in 1-2 weeks. Test Results: Test results from this visit will be discussed in further detail at your follow- up appointment, if applicable. Discharge Plan Admission Primary Reason for Your Visit: laparoscopy Attending Provider: Analia Mcgregor Primary Care Provider: Care Physician,Anna Primary Discharge Orders/Prescriptions Prescriptions: New naproxen 500 mg tablet 500 mg PO BID PRN (Reason: pain) Qty: 30 0RF Continued lorazepam [Ativan] 0.5 mg tablet 0.5 mg PO TID PRN (Reason: anxiety) Qty: 30 0RF folic acid 20 mg capsule 20 mg PO DAILY naproxen 500 mg tablet 500 mg PO Q12H PRN (Reason: pain) Rx Instructions: administer with food or milk citalopram 20 mg tablet 20 mg PO DAILY Qty: 90 3RF Referrals / Follow Up: Care Physician,Anna Primary [Primary Care Provider] - Disposition Disposition (needs filled in before D/C Order can be placed): Home, Self Care
[2023-06-17] MEDS: Bupivacaine 0.25% 30 ML Vial (16:30)
[2023-06-17] MEDS: Methylene Blue 1% 100 MG/10 ML VIAL (16:35)
--- NOTE | 2023-06-17 17:15 | PCM.OPRPT ---
Problems Associated Problem List Diagnoses (1) Pelvic pain: Report of Operation Date of Procedure: 06/17/23 Pre-Operative Diagnosis: chronic pelvic pain, history of ectopic Post-Operative Diagnosis: chronic pelvic pain, history of ectopic Surgery/Procedure Performed:: diagnostic laparoscopy, chromopertubation of fallopian tubes Description of Surgical Findings:: right fallopian tube non-patent. Mild adhesion of bladder to anterior uterus. powder burn rodríguez on the peritoneum overlying the bladder. Surgeon: Analia Mcgregor microsoft exchange architect: Mark Anthony Iniguez Type of Anesthesia: General Anesthesiologist: Gunnar Stoll Specimen's removed: none Drains: none Estimated Blood Loss (mL): 20cc Description of Procedure: Patient was taken in the operating room and was placed under general anesthesia was prepped and draped in normal sterile fashion in the dorsal lithotomy position. Bladder was drained of clear urine and SCDs were on preoperatively. Uterus was sounded and a uterine manipulator was placed after dilating. A small tear in the cervix that was bleeding was repaired using a 1-0 vicryl with 2 figure of 8 sutures. Methylene blue was attached to the manipulator in a syringe. Gloves were changed and attention was then paid to the abdominal portion of the procedure and the umbilicus was elevated with towel clamps and injected with Marcaine and after a 5mm optical trocar was placed in the abdomen under direct visualization. A lleft lower quadrant 5 mm ports were placed under direct visualization. Uterus was well visualized and bilateral fallopian tubes and ovaries were identified and noted to be normal without mass, lesions, or inflammation. There was evidence of ovulation on the right side. The appendix, Liver and upper abdomen were visualized notably within normal limits and no other gross abnormalities were seen in the abdomen other than some adhesions on the bladder flap overlying the anterior uterus and 2 scant powder burn rodríguez on the peritoneum overlying the bladder. Methylene blue was passed through the syringe and spillage was seen only on the left side. All instruments removed from the abdomen after gas was desufflated. Port sites were closed with 3-0 Monocryl Steri's and op sites were applied. All instruments removed from the vagina and patient was awoken and taken recovery in stable condition. Complications none Admit VTE Documentation VTE Present on Admission: No VTE Mechan Device Prophylaxis: SCD's VTE Pharm Prophylaxis ordered?: No Multi Select Codes Urinary/Genital Urinary/Genital CPT Codes: 13699 Laparoscopic fulguration tubes
[2023-06-17] MEDS: Ketorolac 30 MG/ML Syringe IV (17:40)
== END 2023-06-17 18:50 | disposition home or self-care (01) ==
LOC: SDC 13:06 → AC 13:22
PROVIDERS: Referring Provider Obstetrics & Gynecology; Visit Provider Obstetrics & Gynecology
PROC: (CPT 49320; principal; 2023-06-17 14:35)
DX: R10.2 Pelvic and perineal pain (principal); G89.29 Other chronic pain; F32.A Depression, unspecified
CPT/HCPCS: 58670; 00851; 36415; 81025; 85027; 86850; 86900; 86901; J7120; J2405

== ENCOUNTER → 2024-02-07 | Outpatient (CLI) | payer SELFPAY ==
[2024-02-07 17:26] LABS: hCG Titer Quant., Serum 273 mIU/mL (1-3)
== END | disposition home or self-care (01) ==
LOC: LAB 16:46
PROVIDERS: Visit Provider Nurse Practitioner Women's Health
DX: N91.2 Amenorrhea, unspecified (principal)
CPT/HCPCS: 36415; 84702

== ENCOUNTER → 2024-02-09 | Outpatient (CLI) | payer SELFPAY ==
[2024-02-09 19:58] LABS: hCG Titer Quant., Serum 346 mIU/mL (1-3)
== END | disposition home or self-care (01) ==
LOC: LAB 19:01
PROVIDERS: Visit Provider Nurse Practitioner Women's Health
DX: N91.2 Amenorrhea, unspecified (principal)
CPT/HCPCS: 36415; 84702

== ENCOUNTER → 2024-02-11 | Outpatient (CLI) | payer SELFPAY ==
[2024-02-11 20:21] LABS: hCG Titer Quant., Serum 469 mIU/mL (1-3)
== END | disposition home or self-care (01) ==
LOC: LAB 19:17
PROVIDERS: Referring Provider Obstetrics & Gynecology; Visit Provider Obstetrics & Gynecology
DX: N91.2 Amenorrhea, unspecified (principal)
CPT/HCPCS: 36415; 84702

== ENCOUNTER 2024-02-12 01:55 | Day surgery (SDC) | payer SELFPAY ==
[2024-02-12] VITALS (13 sets, daily range): BP systolic 85–117; BP diastolic 42–85; PULSE 64–96; RESP 16–20; TEMP 36.6–37.1; O2SAT 94–100; BMI 32.5
--- NOTE | 2024-02-12 02:01 | US_ITS ---
INDICATION: pain-hcg 423 h/o previous ectopics EXAMINATION: Ultrasound US OB Transvaginal TECHNIQUE: Transvaginal pelvic ultrasound was performed. Grayscale and color flow Doppler evaluation of the adnexa. COMPARISON: January 14, 2023. LMP: [01/14/2024 correlating with 4 weeks 1 day gestation and estimated delivery date October 20, 2024. HCG 423 FINDINGS: UTERUS: Anteverted uterus 8.4 x 4.8 x 6.2 cm with normal myometrium.. Endometrium measures 8 mm and is homogeneous. No intrauterine gestational sac is seen. RIGHT OVARY: 1.9 x 3.3 x 2.3 cm with internal color flow. Complex 1.7 cm physiologic cyst.. LEFT OVARY: 1.8 x 2.3 x 1.6 cm with normal parenchymal and multiple small follicles. Internal color flow seen.. . FREE FLUID: Small volume anechoic free fluid in the cul-de-sac. Adjacent to left ovary there is a 2.1 x 2.7 x 1.8 cm hypoechoic mass peripheral color vascular flow.. US/Transvaginal w/Preg US IMPRESSION: No visible intrauterine gestational sac with small volume cul-de-sac free fluid and questionable 2.7 cm left adnexal soft tissue mass. Cannot exclude ectopic . Collapsed bowel could potentially have a similar appearance. Lack of visible gestational sac is nonspecific at patient clinical gestational age and hCG. OB consultation is recommended. Correlate with hCG trend. Normal right ovary with complex luteal cyst. Normal left ovary. N.B. : The above Results were Read Back by Karthik Maradiaga MD to Analia Cole MD, and understanding confirmed on 02/12/2024 04:29:44 (ET). Electronically Signed: Karthik Maradiaga MD at 4:30 EDT ,
[2024-02-12 02:10] LABS: Absolute Lymphocyte Count 3.35 X10^3/uL (0.83-4.51); Absolute Neutrophil Count 5.5 X10^3/uL (2.0-7.7); Basophil# 0.05 X10^3/uL; Basophil% 0.5 % (0-1); Eosinophil# 0.22 X10^3/uL; Eosinophils% 2.2 % (0-5); Hemoglobin 11.9 g/dL (12.0-15.0); Lymphocyte # 3.35 X10^3/ul (0.83-4.51); Lymphocyte % 34.2 % (19-41); Mean Corp Hgb Conc 33.1 g/dL (32-36); Mean Corpuscular Hgb 29.2 pg (27.0-32.0); Mean Corpuscular Volume 88.5 fL (81-99); Mean Platelet Vol. 11.7 fl (6.2-12.0); Monocyte# 0.66 X10^3/uL; Monocyte% 6.7 % (0-10); NRBC Flagged by Analyzer 0 % (0-5); Neutrophil # 5.48 X10^3/uL (2.7-7.7); Neutrophil % 56.1 % (47-70); Platelet Count 286 K/mm3 (150-450); RBC Distribution Width CV 12.8 % (11.6-14.6); RBC Distribution Width SD 41.6 fl (35.1-43.9); Red Blood Count 4.07 M/mm3 (4.2-5.4); White Blood Count 9.8 K/mm3 (4.4-11.0)
[2024-02-12] MEDS: Morphine 4 MG/ML Syringe IV ×3 (02:14→05:32)
[2024-02-12] MEDS: Ondansetron 4 MG/2 ML Vial IV (02:14)
[2024-02-12 02:25] LABS: Anion Gap 6 (5-15); BUN 9 mg/dL (7-18); BUN/Creat Ratio 10.9 RATIO (10-20); Chloride 109 mmol/L (98-107); Creatinine, Serum 0.82 mg/dL (0.55-1.02); EST Glomerular Filtration Rate 85 mL/min (>60); Est Glom Filt Rate - Afr Amer 103 mL/min (>60); Estimated Creatinine Clearance 93.11 ml/min; Glucose 101 mg/dL (74-106); Potassium 3.3 mmol/L (3.5-5.1); Sodium Level 141 mmol/L (136-145)
[2024-02-12 02:28] LABS: hCG Titer Quant., Serum 423 mIU/mL (1-3)
--- NOTE | 2024-02-12 02:30 | EDS_ITS ---
HPI History of Present Illness Chief Complaint: Abd Pain Informant: patient Onset/Context/Timing Onset: Today Narrative Narrative: Patient presents secondary to lower abdominal pain that woke her from sleep. Patient is approximately 4 weeks . Her quantitative hCG has been slowly rising, but not as expected. She does have a history of ectopic . She has not yet had an ultrasound to confirm intrauterine . [facility] Medical History Wears glasses Wears contact lenses Depression Anxiety Thyroid disease Ectopic Anemia Asthma Non-smoker delivery delivered Decreased movements in third trimester Abnormal Pap smear of cervix Right foot sprain Right ankle sprain Frequent headaches Cyst of face Sprain of right hand Right wrist sprain SGA (small for gestational age), , affecting care of mother, antepartum Gestational diabetes 39 weeks gestation of Asthma Acute wheezy bronchitis Home Medications ?Medication ?Instructions ?Recorded ?Last Taken ?Type norgestimate 0.25 mg-ethinyl 1 tab PO QDAY #28 tabs 10/21/23 Unknown Rx estradiol 35 mcg tablet (Sprintec (28)) Allergy/AdvReac Type Severity Reaction Status Date / Time No Known Allergies Allergy Verified 02/12/24 01:56 Family History Grandmother Breast cancer Lung cancer Father Hypertension Mother Hypertension Thyroid disorder Asthma Grandfather Colon cancer Lung cancer Mother Diabetes Sister Depression Surgical History H/O laparoscopy History of tonsillectomy Social History household members: spouse and children housing: house current occupational status: employed current occupation: [employer] pets and animals: Yes Smoking Status: Never smoker alcohol intake: never substance use type: does not use what type of physical activity do you participate in: none do you feel safe at home: Yes additional social history: - Rod CHAVEZ ED Constitutional Constitutional ED: Denies chills or fever(s) Eyes Eyes: Denies discharge from eye(s) ENT ENT ED: Denies discharge from eye(s), rhinorrhea or sore throat Cardiovascular Cardiovascular: Denies chest pain Respiratory/Chest Respiratory/Chest: Denies cough or dyspnea Gastrointestinal Gastrointestinal: Reports abdominal pain and nausea; Denies diarrhea or vomiting Genitourinary Genitourinary ED: Denies difficulty urinating or dysuria Musculoskeletal Musculoskeletal: Denies back pain or extremity pain Integumentary Denies Abrasions or rash Neurologic Neurologic: Denies headache(s) or weakness Psychiatric Psychiatric: Reports anxiety; Denies depression Allergic/Immunologic Allergic/Immunologic ED: Denies lip swelling or urticaria EXAM Physical Exam Const Vital Signs: 02/12/24 01:55 02/12/24 03:55 Temperature 98.6 F Temperature Source Oral Pulse Rate 83 70 Respiratory Rate 16 16 Blood Pressure 117/64 102/62 Blood Pressure Mean 81 75 Pulse Ox 95 97 Oxygen Delivery Method Room Air Room Air Positive well nourished and well developed General Appearance ED: well developed HEENT Reports moist mucous membranes Eyes EOMs intact bilaterally Chest Wall inspection of chest normal and palpation of chest normal Resp normal respiratory effort and clear to auscultation bilaterally Cardio regular rate and regular rhythm GI GI Narrative: Abdomen soft with moderate lower abdominal tenderness. Extremity normal to inspection Neuro oriented x3 and no sensory deficits noted Motor Exam: strength 5/5 throughout Psych Mood & Affect: anxious Skin no rashes or lesions noted MDM MDM MDM Narrative Medical decision making narrative: IV line initiated. Patient given morphine and Zofran along with IV fluids. Labwork obtained to evaluate for leukocytosis, anemia, and electrolyte derangement. Pelvic ultrasound will be obtained to evaluate for potential ectopic . History & Record Review Discussion w/independent historian: Patient and Significant other Additional record(s) reviewed:: Prior outpatient record and Prior labs Lab Data Attestation: I reviewed the patient's lab results. Labs: Laboratory Results - last 24 hr 02/12/24 02:06 WBC 9.8 RBC 4.07 L Hgb 11.9 L Hct 36.0 L MCV 88.5 MCH 29.2 MCHC 33.1 RDW Std Deviation 41.6 RDW Coeff of Duane 12.8 Plt Count 286 MPV 11.7 Immature Gran % (Auto) 0.300 Neut % (Auto) 56.1 Lymph % (Auto) 34.2 [place] % (Auto) 6.7 Eos % (Auto) 2.2 Baso % (Auto) 0.5 Absolute Neuts (auto) 5.5 Absolute Lymphs (auto) 3.35 Nucleated RBC % 0 Sodium 141 Potassium 3.3 L Chloride 109 H Carbon Dioxide 26.0 Anion Gap 6 BUN 9 Creatinine 0.82 Estim Creat Clear Calc 93.11 Est GFR (MDRD) Af Amer 103 Est GFR (MDRD) Non-Af 85 BUN/Creatinine Ratio 10.9 Glucose 101 Calcium 9.0 HCG, Quant 423 H Radiography Diagnostic Testing: Clinical Impression(s) from Imaging Studies Obstetrics Ultrasound 02/12/24 02:01 IMPRESSION: No visible intrauterine gestational sac with small volume cul-de-sac free fluid and questionable 2.7 cm left adnexal soft tissue mass. Cannot exclude ectopic . Collapsed bowel could potentially have a similar appearance. Lack of visible gestational sac is nonspecific at patient clinical gestational age and hCG. OB consultation is recommended. Correlate with hCG trend. Normal right ovary with complex luteal cyst. Normal left ovary. N.B. : The above Results were Read Back by Karthik Maradiaga MD to Analia Cole MD, and understanding confirmed on 02/12/2024 04:29:44 (ET). Electronically Signed: Karthik Maradiaga MD at 4:30 EDT , Treatment and Re-Evaluation :: CBC was normal white count 9.8 with a hemoglobin 11.9. Chemistry studies significant only for slightly low potassium at 3.3. hCG quant is 423. Pelvic ultrasound reveals no evidence of an IUP. There is some free fluid. There is a left adnexal possible mass versus collapsed bowel. On repeat evaluation patient remains tender. She is required a second dose of morphine. Her vital signs remained stable. I spoke with Dr. Pearson. She believes the patient likely has an ectopic and based on clinical exam I agree. She will plan to take the patient to the OR. Patient and spouse updated at bedside. Discharge Plan Triage Chief Complaint: Abd Pain ED Provider: Analia Cole Dx/Rx/DC Orders Clinical Impression: Ectopic Prescriptions: No Action norgestimate-ethinyl estradiol [Sprintec (28)] 0.25-35 mg-mcg tablet 1 tab PO QDAY Qty: 28 6RF Primary Care Provider: Care Physician,Anna Primary Referrals: Care Physician,No Primary [Primary Care Provider] - Print Language: Singaporean Disposition Disposition: Acute Care Hospital [facility]
[2024-02-12] MEDS: 0.9% Normal Saline (1000mL) 1,000 ML 150 ML IV ×2 (03:17→07:40)
[2024-02-12] MEDS: LORazepam 2 MG/ML Syringe 0.5 MG IV (05:10)
--- NOTE | 2024-02-12 05:14 | PCM.HP.STD ---
HPI - General HPI Narrative KIKO ANNE, is a 33 F who presents with acute onset pelvic pain that awoke her suddenly at 1 am no vaginal bleeding. she has had abnormally rising quants but hadn't had pain prior to this morning or bleeding. she should be 5-6 weeks . [facility] Medical History Wears glasses Wears contact lenses Depression Anxiety Thyroid disease Ectopic Anemia Asthma Non-smoker delivery delivered Decreased movements in third trimester Abnormal Pap smear of cervix Right foot sprain Right ankle sprain Frequent headaches Cyst of face Sprain of right hand Right wrist sprain SGA (small for gestational age), , affecting care of mother, antepartum Gestational diabetes 39 weeks gestation of Asthma Acute wheezy bronchitis Home Medications ?Medication ?Instructions ?Recorded ?Last Taken ?Type norgestimate 0.25 mg-ethinyl 1 tab PO QDAY #28 tabs 10/21/23 Unknown Rx estradiol 35 mcg tablet (Sprintec (28)) Allergy/AdvReac Type Severity Reaction Status Date / Time No Known Allergies Allergy Verified 02/12/24 01:56 Family History Grandmother Breast cancer Lung cancer Father Hypertension Mother Hypertension Thyroid disorder Asthma Grandfather Colon cancer Lung cancer Mother Diabetes Sister Depression Surgical History H/O laparoscopy History of tonsillectomy Social History household members: spouse and children housing: house current occupational status: employed current occupation: [employer] pets and animals: Yes Smoking Status: Never smoker alcohol intake: never substance use type: does not use what type of physical activity do you participate in: none do you feel safe at home: Yes additional social history: - Rod ROS Constitutional Constitutional: Reports systems reviewed and no addt'l complaints, except as documented; Denies as per HPI, change in weight, fatigue, fever(s), malaise, weakness or other Eyes Eyes: Reports systems reviewed and no addt'l complaints, except as documented; Denies as per HPI, change in vision or other ENT HEENT: Reports systems reviewed and no addt'l complaints, except as documented Respiratory/Chest Respiratory/Chest: Reports systems reviewed and no addt'l complaints, except as documented Gastrointestinal Gastrointestinal: Reports systems reviewed and no addt'l complaints, except as documented and as per HPI Genitourinary Genitourinary: Reports as per HPI Musculoskeletal Musculoskeletal: Reports systems reviewed and no addt'l complaints, except as documented Neurologic Neurologic: Reports systems reviewed and no addt'l complaints, except as documented Psychiatric Psychiatric: Reports systems reviewed and no addt'l complaints, except as documented Endocrine Endocrinology: Reports systems reviewed and no addt'l complaints, except as documented Hematologic/Lymphatic Hematologic/Lymphatic: Reports systems reviewed and no addt'l complaints, except as documented Vital Signs Vital Signs Vital Signs: 02/12/24 01:55 02/12/24 03:55 02/12/24 04:52 Temperature 98.6 F 98.8 F Temperature Source Oral Pulse Rate 83 70 80 Respiratory Rate 16 16 20 H Blood Pressure 117/64 102/62 103/60 Blood Pressure Mean 81 75 74 Blood Pressure Source Blood Pressure Position Blood Pressure Location Pulse Ox 95 97 97 Oxygen Delivery Method Room Air Room Air 02/12/24 04:52 02/12/24 05:00 Temperature 98.8 F Temperature Source Oral Pulse Rate 67 75 Respiratory Rate 18 16 Blood Pressure 103/60 110/85 H Blood Pressure Mean 74 93 Blood Pressure Source Monitor Blood Pressure Position Semi-Fowlers Blood Pressure Location Left Arm Pulse Ox 98 97 Oxygen Delivery Method Room Air Room Air Weight Weight: 171 lb 15.369 oz Body Mass Index (BMI) 32.5 Physical Exam Const alert, oriented x3 and no apparent distress HEENT normocephalic Head and Scalp: atraumatic Eyes EOMs intact bilaterally and conjunctivae normal Neck full ROM, no lymphadenopathy, supple and thyroid normal General: trachea midline Lymph Lymphatic: no lymphadenopathy noted Resp normal respiratory effort, no retractions, no use of accessory muscles and clear to auscultation bilaterally Cardio regular rhythm GI soft to palpation, non-distended and no masses Inspection: Negative for abdominal distention Back/Spine no CVA tenderness Extremity normal to inspection Skin no rashes or lesions noted Neuro moves all extremities and deep tendon reflexes 2+ bilaterally Psych mental status grossly normal Results Lab / Micro Data 02/12/24 02:06 02/12/24 02:06 Labs: Laboratory Results - last 24 hr 02/12/24 02:06: WBC 9.8, RBC 4.07 L, Hgb 11.9 L, Hct 36.0 L, MCV 88.5, MCH 29.2, MCHC 33.1, RDW Std Deviation 41.6, RDW Coeff of Duane 12.8, Plt Count 286, MPV 11.7, Immature Gran % (Auto) 0.300, Neut % (Auto) 56.1, Lymph % (Auto) 34.2, [place] % (Auto) 6.7, Eos % (Auto) 2.2, Baso % (Auto) 0.5, Absolute Neuts (auto) 5.5, Absolute Lymphs (auto) 3.35, Nucleated RBC % 0, Sodium 141, Potassium 3.3 L, Chloride 109 H, Carbon Dioxide 26.0, Anion Gap 6, BUN 9, Creatinine 0.82, Estim Creat Clear Calc 93.11, Est GFR (MDRD) Af Amer 103, Est GFR (MDRD) Non-Af 85, BUN/Creatinine Ratio 10.9, Glucose 101, Calcium 9.0, HCG, Quant 423 H Imaging Radiology Impression Obstetrics Ultrasound 02/12/24 02:01 IMPRESSION: No visible intrauterine gestational sac with small volume cul-de-sac free fluid and questionable 2.7 cm left adnexal soft tissue mass. Cannot exclude ectopic . Collapsed bowel could potentially have a similar appearance. Lack of visible gestational sac is nonspecific at patient clinical gestational age and hCG. OB consultation is recommended. Correlate with hCG trend. Normal right ovary with complex luteal cyst. Normal left ovary. N.B. : The above Results were Read Back by Karthik Maradiaga MD to Analia Cole MD, and understanding confirmed on 02/12/2024 04:29:44 (ET). Electronically Signed: Karthik Maradiaga MD at 4:30 EDT , ADDENDUM: 02/12/24 5577 IMPRESSION: No visible intrauterine gestational sac with small volume cul-de-sac free fluid and questionable 2.7 cm left adnexal soft tissue mass. Cannot exclude ectopic . Collapsed bowel could potentially have a similar appearance. Lack of visible gestational sac is nonspecific at patient clinical gestational age and hCG. OB consultation is recommended. Correlate with hCG trend. Normal right ovary with complex luteal cyst. Normal left ovary. N.B. : The above Results were Read Back by Karthik Maradiaga MD to Analia Cole MD, and understanding confirmed on 02/12/2024 04:29:44 (ET). Electronically Signed: Karthik Maradiaga MD at 4:30 EDT , Assessment & Plan Assessment/Plan (1) Ectopic : PLAN: Plan After discussing the patient's diagnosis and treatment plan options, patient wishes to proceed with surgical management. I have discussed with the patient the risks, benefits, and alternatives of the procedure which include but are not limited to risks of anesthesia, bleeding, infection, possible damage to bowel, bladder, or surrounding vasculature which could lead to additional surgery to evaluate any complications. Patient agrees to procedure and wishes to proceed. ACOG/uptodate references given for additional information regarding procedure.
--- NOTE | 2024-02-12 05:55 | PCM.OPRPT ---
Problems Associated Problem List Diagnoses (1) Ectopic : Report of Operation Date of Procedure: 02/12/24 Pre-Operative Diagnosis: see problem list Post-Operative Diagnosis: same Surgery/Procedure Performed:: laparoscopic left salpingectomy Description of Surgical Findings:: left ruptured ectopic Surgeon: Saritha Hong broadcast operations manager: Mckenna Jorge Type of Anesthesia: General and Local Specimen's removed: tube and ectopic Drains: none Estimated Blood Loss (mL): 50 Fluids Replaced: crystalloid Description of Procedure: Patient was taken in the operating room and was placed under general anesthesia was prepped and draped in normal sterile fashion in the dorsal lithotomy position. Bladder was drained of clear urine and SCDs were on preoperatively. Uterus was sounded and a uterine manipulator was placed after dilating. Attention was then paid to the abdominal portion of the procedure and the umbilicus was elevated with towel clamps and injected with Marcaine and after a 5 mm incision was made and the Veress needle was entered into the abdomen confirmed to be intra-abdominal with a low opening pressure of less than 5 mmHg. Abdomen was insufflated with CO2 gas and a 5 mm optical trocar was placed under direct visualization. A 5 mm port was placed in the right and left lower quadrant ports under direct visualization. Uterus was well visualized and there is noted to be a left ruptured ectopic coming from the left fallopian tube. Blood and clot were seen in the cul-de-sac. left tube was nodular in appearance, similar to the right tube which was known to be nonfunctional. decision for tube removal was made. left sigmoid colon adhesions taken down without complication. left Fallopian tube was elevated and mesosalpinx transected and abnormal portion of the fallopian tube and were removed without complication and then placed in a bag and removed through the 5 mm port site. Liver and upper abdomen were visualized notably within normal limits and no other gross abnormalities were seen in the abdomen. All instruments removed from the abdomen after gas was desufflated. All port sites were closed with 3-0 Monocryl Steri's and op sites were applied. All instruments removed from the vagina and patient was awoken and taken recovery in stable condition. Grafts/Implants Used: none Procedure Start Time: 06:36 Procedure Stop Time: 06:59 Complications none Admit VTE Documentation VTE Present on Admission: No VTE Mechan Device Prophylaxis: SCD's Procedures Urinary/Genital [id number]: 90028 Treat ectopic lapro w/ salpingectomy
--- NOTE | 2024-02-12 05:56 | DCINST_ITS ---
Discharge Instructions Diet Discharge Diet: No restrictions Activity Discharge Activity: Return to Normal Activity, May Not Drive (for 2 weeks or while taking narcotic pain meds.), May Shower and May Take a Tub Bath (in 7 days) May resume sexual activity in: 1 week Weight Bearing Status: Full weight bearing Dressing / Incision Call your doctor if your incision/area has: Continuous Slow Oozing, Sudden Increased Bleeding, Increased Pain/ Swelling, Increased Redness and Foul Smelling Discharge Call your doctor if you observe: Fever of 101 or Higher, Using more than 1 pad per hour, Shortness of breath, Chest pain and Uncontrolled pain Suture Line Care: Avoid Pulling/Pushing and Avoid Pinching/Bending Remove Dressing in: 1 week (if present) Cleanse incision/area with: Soap & Water and Keep Dressing Clean & Dry Follow Up Care When: Call to make an appointment with your doctor for a fu/incision check in 1- 2 weeks. Test Results: Test results from this visit will be discussed in further detail at your follow- up appointment, if applicable. Discharge Plan Admission Attending Provider: Saritha Hong Primary Care Provider: Care PhysicianAnna Primary Instructions Print Language: Khmer Discharge Orders/Prescriptions Prescriptions: New oxycodone-acetaminophen [Percocet] 5-325 mg tablet 1 tab PO Q6H PRN (Reason: pain) 7 Days Qty: 20 0RF ibuprofen 600 mg tablet 600 mg PO Q6H PRN PRN (Reason: Pain) Qty: 30 0RF No Action norgestimate-ethinyl estradiol [Sprintec (28)] 0.25-35 mg-mcg tablet 1 tab PO QDAY Qty: 28 6RF Referrals / Follow Up: Care PhysicianAnna Primary [Primary Care Provider] - Disposition Disposition (needs filled in before D/C Order can be placed): Home, Self Care
--- NOTE | 2024-02-12 06:00 | FAL_PTH ---
PATIENT: KIKO ANNE [place] [facility] [place][id number] AGE/SX: 33/F ROOM: RE02/12/[address]: Dr. Saritha Hong MD : 1990 BED: DIS: 02/12/2024 SPEC #: [id number] RECD: 02/12/24 12:19 STATUS: DIA WANG #: [id number] YESIKA: 02/12/24 06:[address]: Saritha Hong DEPT: SURGICAL PATHOLOGY RECD BY: Sandy Reyez ENTERED: 02/12/24 13:29 SP TYPE: ECTOPIC OTHR DR: No Primary Care Phys Tissues: ECTOPIC PREG Procedures: Surgery Specimen Level IV HEADER OPERATION: Laparoscopic, removal ectopic , left salpingectomy PRE-OP DIAGNOSIS: Ectopic TISSUE SUBMITTED: Left ruptured ectopic MICROSCOPIC DIAGNOSIS Left ruptured ectopic , salpingectomy: Fallopian tube with decidua, immature chorionic villi and blood clots (ectopic ). DARYA: 02/13/2024 MICROSCOPIC DESCRIPTION Slides are reviewed. GROSS DESCRIPTION Received in fixative is one container labeled with the patient's name and designated Left ruptured ectopic. The specimen consists of a fallopian tube measuring 6.0cm in length and up to 1.5cm in diameter. Fimbrial end is identified. Fimbrial end also shows multiple blood clots. Detached fragments of blood clots are also noted measuring in aggregate 3.0 x 1.5 x 0.4cm. Sections reveal lumen is filled with multiple blood clots. tissue is not identified. The entire specimen is submitted in four cassettes. DARYA/ 02/12/2024 TC:5 CPT:95346
--- NOTE | 2024-02-12 06:08 | PCM.PRE.AN2 ---
ASA Classification* ASA Classification ASA Classification: 2 Assessment & Plan Anesthesia* Anesthesia Assessment Anesthesia Assessment: Discussed sedation and/or anesthesia options, risks, benefits, and alternatives with patient/parents/legal guardian/POA. Questions invited. The patient/parents/legal guardian/POA seems to understand and agrees to proceed with anesthesia plan. Reviewed the physical assessment, medical history, allergy history and patient home medications list prior to surgery/procedure/anesthetic and documented any changes. Performed airway and anesthesia risk assessments. Anesthesia Type Anesthesia Type: General History Source History Obtained from:: Patient and Chart Anesthesia Focused Assessment* Temperature: 98.8 F Pulse Rate: 75 Blood Pressure: 110/85 Respiratory Rate: 16 Pulse Ox: 97 Oxygen Delivery Method: Room Air Airway Assessment Mouth opens: >3 cm Mallampati Score: III Teeth Condition: Intact Neck Range of motion (ROM): Full ROM Focused Labs Anesthesia Preop lab: CBC WBC 9.8 K/mm3 (4.4-11.0) 02/12/24 02:06 RBC 4.07 M/mm3 (4.2-5.4) L 02/12/24 02:06 Hgb 11.9 g/dL (12.0-15.0) L 02/12/24 02:06 Hct 36.0 % (37-47) L 02/12/24 02:06 Plt Count 286 K/mm3 (150-450) 02/12/24 02:06 CHEMISTRY Potassium 3.3 mmol/L (3.5-5.1) L 02/12/24 02:06 Sodium 141 mmol/L (136-145) 02/12/24 02:06 BUN 9 mg/dL (7-18) 02/12/24 02:06 Creatinine 0.82 mg/dL (0.55-1.02) 02/12/24 02:06 Glucose 101 mg/dL (74-106) 02/12/24 02:06 POC Glucose 80 mg/dL (70-110) 12/06/19 06:00 TSH 1.16 uIU/mL (0.358-3.74) 04/28/23 13:57 COAG PT 14.1 SECONDS (11.7-14.9) 02/25/22 11:17 HCG, Quant 423 mIU/mL (1-3) H 02/12/24 02:06 Urine Test Negative Negative 06/17/23 13:25 Tst Clinic Negative 05/26/23 14:32 Pre-Assessment Diagnosis/Proposed Procedure Planned Operative Procedure(s): Removal ectopic Anesthesia History Anesthesia History - admissions manager rn: Anesthesia History - admissions manager rn Hx Hospitalization No 06/06/23 13:04 Any Problems With Anesthesia No 02/12/24 04:52 Cholinesterase deficiency No 02/12/24 04:52 You/Your Family Experience No 02/12/24 04:52 fever (hyperthermia) with Relationship Recent Exposure to Contagious No 02/12/24 04:52 Disease Does patient have nerve No 02/12/24 04:52 stimulator Patient instructed to have device shut off --Does patient have Pacemaker No 02/12/24 04:52 or ICD? When Was Last Pacemaker Check QUESTION #4 FULL TEXT: You/Your Family Experience fever (hyperthermia) with Anesthesia Last Oral Intake Last Oral intake: Last Oral Intake NPO since 20:00 02/12/24 04:52 Meds taken in AM with sips of water? Meds patient instructed to take am of surgery PONV PONV - admissions manager rn: PONV - admissions manager rn Female HX of Motion Sickness HX of N/V After Surgery Non-Smoker Duration of Surgery greater than 60 minutes Number of Risk Factors PONV Score Height & Weight Height & Weight: Anesthesia: Height & Weight Height 5 ft 1 in 02/12/24 05:19 Weight: 78 kg 02/12/24 05:19 Body Mass Index (BMI) 32.5 02/12/24 05:19 Respiratory Assessment Respiratory Assessment - admissions manager rn: Respiratory Tract Infection Hx - admissions manager rn Hx Respiratory Tract Infection No 02/12/24 04:52 STOP Sleep Apnea STOP Sleep Apnea - admissions manager rn: STOP Sleep Apnea - admissions manager rn Hx Hypertension No 02/12/24 04:52 Hx Sleep Apnea No 02/12/24 04:52 CPAP BIPAP Do you snore loudly (louder No 02/12/24 04:52 than talking or can be heard Do you often feel tired/ No 02/12/24 04:52 fatigued/ sleepy during daytime? Has anyone observed you stop No 02/12/24 04:52 breathing during sleep? STOP Results Negative 02/12/24 04:52 QUESTION #5 FULL TEXT : Do you snore loudly (louder than talking or can be heard through closed doors)? Tobacco Use History Tobacco Use History - admissions manager rn: Tobacco Use History - admissions manager rn Tobacco Use Non-smoker 05/03/22 15:45 Smoking Status Never smoker 02/12/24 02:19 Hx Tobacco Use No 06/06/23 13:04 Years Smoking Packs Smoked per Day Smoking Cessation Date was within the last 15 years Hx Smoking Cessation Date Hx Smoking Cessation Counseling Hematologic Medial History Hematologic Hx - admissions manager rn: Hematologic Medical Hx - medical records clerk Hx of Blood Transfusion Hx of Transfusion in last 3 Months Date of Last Transfusion (if within last 3 months) Ever experience any problems with transfusion(s)? Specify any problems Hx of Preganancy in last 3 Months Nurse Filling Out Transfusion & Questions: Date: Time: Patient unable to answer at this time (ie. confused, unrespo /Reproduction History /Reproductive History - admissions manager rn: /Reproductive Hx- admissions manager rn Hx Now Yes 02/12/24 04:52 Gestational Age (in weeks): EDC: Hx Hx Para Hx Section SAB No 02/12/24 05:19 Active Medications Active Medications: Current Medications Generic Name Dose Route Start Last Admin Trade Name Freq PRN Reason Stop Dose Admin Hydrocodone Bitart/Acetaminophen 1 - 2 tablet 02/12/24 05:58 Hydrocodone Bitartrate/Apap 5/325 Tablet PO Q6H PRN PRN Pain Score 1-10 Sodium Chloride 1,000 mls @ 150 mls/hr 02/12/24 02:05 02/12/24 03:17 IV 150 mls/hr .Q6H40M CLAUDE Administration Ondansetron HCl 4 mg 02/12/24 05:58 Ondansetron 4 Mg/2 Ml Vial IM X1 PRN NAUSEA PFSH Medical History Wears glasses Wears contact lenses Depression Anxiety Thyroid disease Ectopic Anemia Asthma Non-smoker delivery delivered Decreased movements in third trimester Abnormal Pap smear of cervix Right foot sprain Right ankle sprain Frequent headaches Cyst of face Sprain of right hand Right wrist sprain SGA (small for gestational age), , affecting care of mother, antepartum Gestational diabetes Asthma Acute wheezy bronchitis Home Medications ?Medication ?Instructions ?Recorded ?Last Taken ?Type norgestimate 0.25 mg-ethinyl 1 tab PO QDAY #28 tabs 10/21/23 Unknown Rx estradiol 35 mcg tablet (Sprintec (28)) ibuprofen 600 mg tablet 600 mg PO Q6H PRN PRN Pain #30 tabs 02/12/24 Unknown Rx oxycodone-acetaminophen 5 mg-325 1 tab PO Q6H PRN pain 7 days #20 02/12/24 Unknown Rx mg tablet (Percocet) tabs Allergy/AdvReac Type Severity Reaction Status Date / Time No Known Allergies Allergy Verified 02/12/24 01:56 Family History Grandmother Breast cancer Lung cancer Father Hypertension Mother Hypertension Thyroid disorder Asthma Grandfather Colon cancer Lung cancer Mother Diabetes Sister Depression Surgical History H/O laparoscopy History of tonsillectomy Social History household members: spouse and children housing: house current occupational status: employed current occupation: [employer] pets and animals: Yes Smoking Status: Never smoker alcohol intake: never substance use type: does not use what type of physical activity do you participate in: none do you feel safe at home: Yes additional social history: - Rod Review of Systems (Anesthesia) ROS Narrative System reviewed and no additional complaints, except as documented.
[2024-02-12] MEDS: Bupivacaine 0.25% 30 ML Vial (06:57)
--- NOTE | 2024-02-12 07:21 | PCM.POST.ANE ---
Anesthesia: Postop Eval I Current Vital Signs Temperature: 98 F Pulse Rate: 95 Blood Pressure: 99/42 Respiratory Rate: 16 Pulse Ox: 100 Oxygen Delivery Method: Room Air Assessment Airway patent: Yes Spontaneous unlabored respirations: Yes Mental status: Awake and Calm nausea: No Vomiting: No Anesthesia Complication: No Fluid Hydration Crystalloid volume administer (ml): 850 Total IV fluid infused: 850 Progress Note Anesthesia document: Postop Eval 1 completed: Yes
[2024-02-12] MEDS: Ondansetron 4 MG/2 ML Vial IM (07:41)
--- NOTE | 2024-02-12 07:50 | PCM.POSTANE2 ---
Anesthesia Postop Eval I Sum Postop Eval Completion status Anesthesia document: Postop Eval 1 completed: Yes Anesthesia Postop Eval I Summary Anesthesia Postop Eval I Summary: Anesthesia Postop Eval I: Assessment Summary Airway patent Yes 02/12/24 07:24 Spontaneous unlabored Yes 02/12/24 07:24 respirations Mental status Awake,Calm 02/12/24 07:24 nausea No 02/12/24 07:24 Vomiting No 02/12/24 07:24 Anesthesia Postop Eval I: Fluid Summary Crystalloid volume administer 850 02/12/24 07:24 (ml) Colloids volume administered ( ml) Blood Product volume administered (ml) Total IV fluid infused 850 02/12/24 07:24 Anesthesia Postop Eval I: Summary Notes Anesthesia Complication No 02/12/24 07:24 Anesthesia Complication Comment: Post-operative progress note Anesthesia: Postop Eval II Evaluation Mental status: Awake Pain Level: 0 nausea: No Vomiting: No
== END 2024-02-12 09:13 | disposition home or self-care (01) ==
LOC: ED 04:48 → SDC 05:01 → PCU 05:02
PROVIDERS: Emergency Provider Emergency Medicine; Visit Provider Obstetrics & Gynecology
PROC: 10T24ZZ Resection of Products of Conception, Ectopic, Percutaneous Endoscopic Approach (ICD-10-PCS; CPT 59150; principal; 2024-02-12 05:45)
DX: O00.90 Unspecified ectopic pregnancy without intrauterine pregnancy (principal)
CPT/HCPCS: 59151; 00840; 76817; 80048; 84702; 85025; 88305; 99285; J7030; A4216; J2405

== ENCOUNTER 2024-04-16 13:06 | Outpatient (CLI) | payer OTHER, SELFPAY ==
[2024-04-16] MEDS: Dextrose 5%-Lactated Ringers 1,000 ML 1000 ML IV (13:29)
[2024-04-16 13:30] VITALS: BP 117/73; PULSE 71; RESP 16; TEMP 36.2; O2SAT 97; BMI 28.7
[2024-04-16] MEDS: Ondansetron 4 MG/2 ML Vial IV (14:38)
== END 2024-04-16 23:59 | disposition home or self-care (01) ==
LOC: MEDOUTP 13:10
PROVIDERS: Referring Provider Obstetrics & Gynecology; Visit Provider Obstetrics & Gynecology
DX: E86.0 Dehydration (principal)
CPT/HCPCS: 96374; 96361; A4216; J2405

== ENCOUNTER → 2024-05-13 | Outpatient (CLI) | payer OTHER, MEDICAID, SELFPAY ==
--- NOTE | 2024-05-13 12:18 | US_ITS ---
EXAM: US SOFT TISSUES HEAD AND NECK, THYROID CLINICAL INDICATION: THYROID NODULE TECHNIQUE: Greyscale and color doppler imaging was performed of the thyroid gland. COMPARISON: 05/15/2023. FINDINGS: LEFT THYROID LOBE: Solid nodule posterior aspect of the left lobe of the thyroid measures 1.1 x 0.8 x 0.7 cm, is isoechoic, wider than tall, smooth, without echogenic foci. The left lobe of the thyroid lobe measures 5.1 x 1.7 x 1.6 cm. RIGHT THYROID LOBE: Unremarkable. Homogeneous echotexture with normal vascularity. No thyroid nodules are present. The right lobe of the thyroid lobe measures 5.2 x 1.7 x 1.6 cm. ISTHMUS: Unremarkable. No thyroid nodules are present. The isthmus measures 0.3 cm in thickness. US/Thyroid IMPRESSION: Solid nodule posterior aspect of the left lobe of the thyroid measures 1.1 x 0.8 x 0.7 cm, is isoechoic, wider than tall, smooth, without echogenic foci. TI-RADS points: 3. TI-RADS category: TR3. This nodule is mildly suspicious but no FNA or follow-up is necessary given the small size of this nodule. This is unchanged since the previous exam. Electronically Signed: Reginaldo Castillo MD at 1:21 EDT ,
== END | disposition home or self-care (01) ==
PROVIDERS: Referring Provider Surgery; Visit Provider Surgery
DX: E04.1 Nontoxic single thyroid nodule (principal)
CPT/HCPCS: 76536

== ENCOUNTER → 2024-07-28 | Outpatient (CLI) | payer OTHER, MEDICAID, SELFPAY ==
[2024-07-28 08:02] LABS: hCG Titer Quant., Serum 55 mIU/mL (1-3)
== END | disposition home or self-care (01) ==
PROVIDERS: Referring Provider Obstetrics & Gynecology; Visit Provider Obstetrics & Gynecology
DX: O20.0 Threatened abortion (principal); Z3A.00 Weeks of gestation of pregnancy not specified
CPT/HCPCS: 36415; 84702

== ENCOUNTER → 2024-07-30 | Outpatient (CLI) | payer OTHER, MEDICAID, SELFPAY ==
[2024-07-30 07:59] LABS: hCG Titer Quant., Serum 91 mIU/mL (1-3)
== END | disposition home or self-care (01) ==
LOC: LAB 07:07
PROVIDERS: Referring Provider Obstetrics & Gynecology; Visit Provider Obstetrics & Gynecology
DX: O20.0 Threatened abortion (principal); Z3A.00 Weeks of gestation of pregnancy not specified
CPT/HCPCS: 36415; 84702

== ENCOUNTER → 2024-08-01 | Outpatient (CLI) | payer OTHER, MEDICAID, SELFPAY ==
[2024-08-01 08:42] LABS: hCG Titer Quant., Serum 143 mIU/mL (1-3)
== END | disposition home or self-care (01) ==
LOC: LAB 07:31
PROVIDERS: Referring Provider Obstetrics & Gynecology; Visit Provider Obstetrics & Gynecology
DX: O20.0 Threatened abortion (principal); Z3A.00 Weeks of gestation of pregnancy not specified

== ENCOUNTER → 2024-08-17 | Outpatient (CLI) | payer OTHER, MEDICAID, SELFPAY ==
--- NOTE | 2024-08-17 07:49 | US_ITS ---
PROCEDURE: TRANSVAGINAL W/PREG US REASON FOR EXAM: Assess for viability. LMP 07/11/2024. ANISA by LMP 04/17/2025. COMPARISON: None. FINDINGS: Comments: Transvaginal imaging was performed Number of Gestational Sacs: 1 Gestational Sac Shape: Normal No pole or gestational sac is identified. Uterine Abnormalities: Maternal uterus is unremarkable. Uterus measured at 1 x 6.6 x 4.9 cm. Ovaries / Adnexa: Both maternal ovaries are visualized and unremarkable. The right ovary is measured at 2.5 x 2.1 x 1.3 cm, the left ovary at 3.0 x 2.0 x 1.5 cm. ESTIMATED GESTATIONAL AGE: By Ultrasound: 5 week 2 day By LMP: 5 week 2 day ESTIMATED DATE OF DELIVERY: By Ultrasound: 04/17/2025 By LMP: 04/17/2025 Cervix appears closed. No free fluid is seen within the cul-de-sac. US/Transvaginal w/Preg US IMPRESSION: Findings most consistent with early , with gestational sac measurement consistent with the ANISA by LMP. No yolk sac or pole is yet visualized. Reading Location: [id number]
[2024-08-17 08:43] LABS: Absolute Lymphocyte Count 2.06 X10^3/uL (0.83-4.51); Absolute Neutrophil Count 4.2 X10^3/uL (2.0-7.7); Basophil# 0.04 X10^3/uL; Basophil% 0.6 % (0-1); Eosinophil# 0.23 X10^3/uL; Eosinophils% 3.2 % (0-5); Hematocrit 36.3 % (37-47); Hemoglobin 12.4 g/dL (12.0-15.0); Lymphocyte # 2.06 X10^3/ul (0.83-4.51); Mean Corp Hgb Conc 34.2 g/dL (32-36); Mean Corpuscular Hgb 30.5 pg (27.0-32.0); Mean Corpuscular Volume 89.2 fL (81-99); Mean Platelet Vol. 11.4 fl (6.2-12.0); Monocyte# 0.52 X10^3/uL; Monocyte% 7.3 % (0-10); NRBC Flagged by Analyzer 0 % (0-5); Neutrophil # 4.23 X10^3/uL (2.7-7.7); Neutrophil % 59.6 % (47-70); Platelet Count 268 K/mm3 (150-450); RBC Distribution Width CV 13.2 % (11.6-14.6); RBC Distribution Width SD 42.6 fl (35.1-43.9); Red Blood Count 4.07 M/mm3 (4.2-5.4); White Blood Count 7.1 K/mm3 (4.4-11.0)
[2024-08-17 08:50] LABS: ALB/GLOB Ratio 0.9 RATIO (0.9-2.4); AST(SGOT) 7 U/L (15-37); Alanine Aminotransfer ALT/SGPT 17 U/L (13-56); Albumin, Serum 3.8 g/dL (3.2-5.0); Alkaline Phosphatase 80 U/L (45-117); Anion Gap 6 (5-15); BUN 9 mg/dL (7-18); BUN/Creat Ratio 10.2 RATIO (10-20); Calcium,Total 9.2 mg/dL (8.5-10.1); Chloride 105 mmol/L (98-107); Creatinine, Serum 0.88 mg/dL (0.55-1.02); EST Glomerular Filtration Rate 78 mL/min (>60); Est Glom Filt Rate - Afr Amer 94 mL/min (>60); Globulin 4.1 g/dL (2.2-4.2); Glucose 94 mg/dL (74-106); Potassium 3.6 mmol/L (3.5-5.1); Protein, Total 7.9 g/dL (6.4-8.2); Sodium Level 137 mmol/L (136-145)
== END | disposition home or self-care (01) ==
PROVIDERS: Referring Provider Obstetrics & Gynecology; Visit Provider Obstetrics & Gynecology
DX: O20.0 Threatened abortion (principal); O26.891 Other specified pregnancy related conditions, first trimester; R42 Dizziness and giddiness; Z3A.01 Less than 8 weeks gestation of pregnancy
CPT/HCPCS: 36415; 76817; 80053; 85025

== ENCOUNTER → 2024-08-23 | Outpatient (CLI) | payer OTHER, MEDICAID, SELFPAY ==
[2024-08-26 06:09] LABS: Chlamydia By Nucleic Acid AMP Negative (Negative); Gonococcus By Nucleic Acid AMP Negative (Negative)
== END | disposition home or self-care (01) ==
LOC: LABSPEC 16:07
PROVIDERS: Referring Provider Obstetrics & Gynecology; Visit Provider Obstetrics & Gynecology
DX: O09.91 Supervision of high risk pregnancy, unspecified, first trimester (principal); Z3A.00 Weeks of gestation of pregnancy not specified
CPT/HCPCS: 87086; 87088; 87491; 87591

== ENCOUNTER 2024-09-26 15:44 | Emergency (ER) | payer OTHER, MEDICAID, SELFPAY ==
[2024-09-26 15:45] VITALS: BP 97/54; PULSE 129; RESP 16; TEMP 36.2; O2SAT 99; BMI 26.0
[2024-09-26] MEDS: 0.9% Normal Saline (1000mL) 1,000 ML 1000 ML IV (16:35)
--- NOTE | 2024-09-26 16:35 | EDS_ITS ---
HPI HPI - GI History of Present Illness Chief Complaint: Nausea/Vomiting Informant: patient Nausea/Vomiting/Emesis GI Symptom: Positive for Nausea and Vomiting Onset: Today and Hours Severity: Moderate Diarrhea/Melena/Hematochezia GI Symptom: Negative for Diarrhea, Melena or Hematochezia Associated Symptoms Associated Symptoms: Negative for Dysuria, Frequency, Hematuria or Urgency Narrative Narrative: 34-year-old female currently 11 weeks has high risk and sees maternal- medicine. Currently under the care of Dr. Saritha Hong of [facility]. AB 4 with 2 of those being ectopics. States she has had multiple pelvic ultrasounds for this showing a single live IUP. She been doing well. She has had intermittent bleeding she is going to follow-up with maternal-. That is not new or different today. She started having nausea vomiting around 6 AM this morning. No diarrhea. No fever. No dysuria. has similar symptoms at home he has been ill for the last 24 hours. She thinks she picked up a virus from him. Prior similar symptoms: Yes Recent Illness/Hospitalization: No PFSH PFSH Medical History Threatened Acute bronchitis, unspecified Concentration deficit History of depression PTSD (post-traumatic stress disorder) Wears glasses Wears contact lenses Depression Anxiety Thyroid disease Ectopic Anemia Asthma Non-smoker delivery delivered Decreased movements in third trimester Abnormal Pap smear of cervix Right foot sprain Right ankle sprain Frequent headaches Cyst of face Sprain of right hand Right wrist sprain SGA (small for gestational age), , affecting care of mother, antepartum Gestational diabetes Asthma Acute wheezy bronchitis Home Medications ?Medication ?Instructions ?Recorded ?Last Taken ?Type hydroxyzine HCl 10 mg tablet 10 mg PO TID PRN anxiety #90 tabs 07/06/24 Unknown Rx bupropion HCl 150 mg tablet,12 hr 150 mg PO BID #60 ea 07/22/24 Unknown Rx sustained-release progesterone micronized 200 mg 200 mg vaginal QHS 30 d ays #30 caps 07/28/24 Unknown Rx capsule ondansetron 4 mg disintegrating 4 mg PO Q6H PRN nausea and 09/08/24 Unknown Rx tablet vomiting #90 tabs bupropion HCl 150 mg tablet,12 hr 150 mg PO BID #60 ea 09/15/24 Unknown Rx sustained-release ondansetron 4 mg disintegrating 4 mg PO Q6H PRN nausea and 09/26/24 Unknown Rx tablet vomiting #10 tabs Allergy/AdvReac Type Severity Reaction Status Date / Time doxycycline AdvReac Mild Nausea Verified 09/26/24 15:47 Family History Grandmother Breast cancer Lung cancer Father Hypertension Mother Hypertension Thyroid disorder Asthma Grandfather Colon cancer Lung cancer Mother Diabetes Sister Depression Surgical History Previous section H/O unilateral salpingectomy (~02/12/24) H/O laparoscopy History of tonsillectomy Social History household members: spouse and children housing: house current occupational status: employed current occupation: [employer] pets and animals: Yes Smoking Status: Never smoker alcohol intake: never substance use type: does not use what type of physical activity do you participate in: none do you feel safe at home: Yes additional social history: - Rod ROS ROS ED ROS Narrative Nausea and vomiting. No abdominal pain other than cramping with vomiting. No dysuria. No fever. Constitutional Constitutional ED: Denies chills or fever(s) ENT ENT ED: Denies ear pain Cardiovascular Cardiovascular: Denies chest pain Respiratory/Chest Respiratory/Chest: Denies cough or dyspnea Gastrointestinal Gastrointestinal: Reports nausea and vomiting; Denies abdominal pain, constipation, diarrhea or melena Genitourinary Genitourinary ED: Denies dysuria or hematuria Musculoskeletal Musculoskeletal: Denies arthralgias, back pain, myalgias or neck pain Integumentary Denies abscess or Abrasions Neurologic Neurologic: Denies headache(s) or paresthesias Psychiatric Psychiatric: Denies anxiety or depression Endocrine Endocrinology: Denies polydipsia or polyphagia Hematologic/Lymphatic Hematologic/Lymphatic: Denies easy bleeding, easy bruising or lymphadenopathy Allergic/Immunologic Allergic/Immunologic ED: Denies mouth swelling, tongue swelling or urticaria EXAM Physical Exam Narrative Exam Narrative: 34-year-old female vital signs blood pressure nice over 97/54 heart rate 129. Clinically looks dehydrated. Does not look septic or toxic. Sitting upright in bed. H EENT exam shows dry mucous membranes. Pupils round react light. Neck nontender no lymphadenopathy. No meningismus. Lungs clear to auscultation bilaterally. Heart tachycardic 130 no murmur. Chest wall ribs nontender. Abdomen soft nontender. No peritoneal signs. No right upper or right lower quadrant tenderness. No hernia or mass. No obstruction. Moving all 4 extremities. Nontender no edema. Normal strength. Normal range of motion. Back nontender. Neurologically awake alert no focal motor deficits. Const Vital Signs: 09/26/24 15:45 09/26/24 17:44 09/26/24 18:39 Temperature 97.2 F L Temperature Source Temporal Pulse Rate 129 H 90 87 Respiratory Rate 16 16 16 Blood Pressure 97/54 L 112/80 101/61 Blood Pressure Mean 68 90 74 Pulse Ox 99 98 100 Oxygen Delivery Method Room Air Room Air Room Air Positive well nourished and well developed; Negative for obese, cachectic or contractures General Appearance ED: well developed; Negative for cachectic, contractures, NAD or pallor Nutritional Appearance: Negative for cachectic or obese HEENT Reports dry mucous membranes; Denies moist mucous membranes normocephalic and atraumatic; Negative for trauma or tenderness Mouth ED: Yes dry mucous membranes Mouth: dry mucous membranes Eyes PERRL and EOMs intact bilaterally General Eye ED: Negative for pale conjunctiva or scleral icterus Neck no lymphadenopathy, supple and no JVD General: Negative for tenderness Carotids: Negative for other Lymph Lymphatic: Negative for other Resp normal respiratory effort and clear to auscultation bilaterally Effort and Inspection: Negative for respiratory distress Auscultation: Negative for rales, rhonchi, wheezes or diminished lung sounds Cardio regular rhythm, S1 normal heart sound, S2 normal heart sound and no murmurs; Negative for regular rate Rate: tachycardic Rhythm: Negative for abnormal rhythm GI non-tender, non-distended and no masses Inspection: Negative for abdominal distention Auscultation: normoactive bowel sounds Palpation: soft; Negative for tender, guarding, rigid, hepatomegaly, splenomegaly, hernia, mass, pulsatile mass or rebound tenderness present Back/Spine no CVA tenderness General Back: Negative for CVA tenderness Cervical Spine: Negative for cervical spine tenderness Thoracic Spine / Upper Back: Negative for thoracic spinal tenderness Lumbar Spine / Lower Back: Negative for lumbar spinal tenderness Coccyx: Negative for other Extremity full ROM General Extremety ED: Negative for edema, tenderness or other findings General Extremity: Negative for edema or other findings Neuro CN's II-XII intact bilaterally and moves all extremities Sensorium / Orientation: alert, oriented to person, oriented to place and oriented to time; Negative for orientation impaired, confused, lethargic or stuporous Motor Exam: strength 5/5 throughout; Negative for general weakness or strength abnormal Psych mental status grossly normal and thought process normal Appearance: Negative for other Attitude: No agitated Mood & Affect: Negative for depressed, anxious or tearful Skin General Skin Exam: Negative for jaundice or pallor Lesions: no lesions Rashes: no rashes Trauma: Negative for abrasion Nails: Negative for discolored MDM MDM MDM Narrative Medical decision making narrative: 34-year-old female 11 weeks high risk dehydrated from nausea and vomiting. Suspect viral syndrome. Abdomen is benign. I do not think she needs blood work but she does need IV fluids and IV Zofran. P.o. fluid challenge and reassess. Patient treated with a second dose of Zofran. Repeat exam around 6:35 pm patient still nauseated. Ordered IV Reglan. Should be reassessed. Patient doing well around 7:10 PM. Said the Reglan resolved her nausea. She is able to hold down p.o. fluids. He is comfortable being discharged to home. Fluids and rest. Zofran as needed for nausea. Follow-up with your OB as needed. Return if worse. History & Record Review Discussion w/independent historian: Patient Additional record(s) reviewed:: Prior inpatient record, Prior outpatient record, Prior ED visit and Prior labs Lab Data Attestation: I reviewed the patient's lab results. Lab results narrative: COVID, flu and RSV is negative. Discharge Plan Triage Chief Complaint: Nausea/Vomiting ED Provider: Damaso Whitfield Dx/Rx/DC Orders Clinical Impression: Vomiting, First trimester , Viral syndrome Instructions: ED Viral Syndrome (Adult), ED Vomiting (Adult) Prescriptions: New ondansetron 4 mg tablet,disintegrating 4 mg PO Q6H PRN (Reason: nausea and vomiting) Qty: 10 0RF No Action hydroxyzine HCl 10 mg tablet 10 mg PO TID PRN (Reason: anxiety) Qty: 90 1RF bupropion HCl 150 mg tablet sustained-release 12 hr 150 mg PO BID Qty: 60 2RF ondansetron 4 mg tablet,disintegrating 4 mg PO Q6H PRN (Reason: nausea and vomiting) Qty: 90 4RF bupropion HCl 150 mg tablet sustained-release 12 hr 150 mg PO BID Qty: 60 2RF progesterone micronized 200 mg capsule 200 mg vaginal QHS 30 Days Qty: 30 3RF Rx Instructions: continue until 10 weeks Primary Care Provider: Care Physician,No Primary Referrals: Saritha Hong MD [Med Staff - Active Staff] - 3-5 Days if not improving Care Physician,No Primary [Primary Care Provider] - Activity Restrictions/Additional Instructions: Plenty of fluids and rest. Slowly increase your diet as tolerated. Very important she stay hydrated. Water, 7-Up, Gatorade, Pedialyte and increase your diet. Ice chips and popsicles. Zofran as needed for nausea. Follow-up with your doctor if not improving or return if feeling worse or unable to keep fluids down. Print Language: Mongolian Disposition Disposition: Home, Self Care
[2024-09-26] MEDS: Ondansetron 4 MG/2 ML Vial IV ×2 (16:38→17:34)
[2024-09-26 17:44] VITALS: BP 112/80; PULSE 90; RESP 16; O2SAT 98
[2024-09-26 18:39] VITALS: BP 101/61; PULSE 87; RESP 16; O2SAT 100
[2024-09-26] MEDS: Metoclopramide 10 MG/2 ML Vial 5 MG IV (18:39)
[2024-09-26 19:55] VITALS: BP 102/51; PULSE 99; RESP 18; TEMP 36.7; O2SAT 99
== END 2024-09-26 19:55 | disposition home or self-care (01) ==
PROVIDERS: Emergency Provider Emergency Medicine; Visit Provider Emergency Medicine
DX: O21.9 Vomiting of pregnancy, unspecified (principal); Z3A.11 11 weeks gestation of pregnancy; O98.52 Other viral diseases complicating childbirth; B34.9 Viral infection, unspecified
CPT/HCPCS: 87631; 96361; 96374; 96375; 96376; 99283; A4216; J2405

== ENCOUNTER → 2024-10-06 | Outpatient (CLI) | payer OTHER, MEDICAID, SELFPAY ==
[2024-10-06 12:07] LABS: Absolute Lymphocyte Count 1.98 X10^3/uL (0.83-4.51); Absolute Neutrophil Count 5.1 X10^3/uL (2.0-7.7); Basophil# 0.03 X10^3/uL; Basophil% 0.4 % (0-1); Eosinophil# 0.07 X10^3/uL; Eosinophils% 0.9 % (0-5); Hematocrit 34.9 % (37-47); Hemoglobin 11.8 g/dL (12.0-15.0); Lymphocyte # 1.98 X10^3/ul (0.83-4.51); Lymphocyte % 25.8 % (19-41); Mean Corp Hgb Conc 33.8 g/dL (32-36); Mean Corpuscular Hgb 30.4 pg (27.0-32.0); Mean Corpuscular Volume 89.9 fL (81-99); Mean Platelet Vol. 11.8 fl (6.2-12.0); Monocyte# 0.44 X10^3/uL; Monocyte% 5.7 % (0-10); NRBC Flagged by Analyzer 0 % (0-5); Neutrophil # 5.12 X10^3/uL (2.7-7.7); Neutrophil % 66.7 % (47-70); Platelet Count 301 K/mm3 (150-450); RBC Distribution Width CV 13.4 % (11.6-14.6); RBC Distribution Width SD 43.8 fl (35.1-43.9); Red Blood Count 3.88 M/mm3 (4.2-5.4); White Blood Count 7.7 K/mm3 (4.4-11.0)
[2024-10-06 12:51] LABS: Hepatitis B Surface Antigen Nonreactive (Nonreactive); Hepatitis C Antibody Nonreactive (Nonreactive); Rubella IgG REAC (Nonreactive); Syphilis Antibodies Nonreactive (Nonreactive)
[2024-10-06 12:56] LABS: HIV Nonreactive (Nonreactive)
== END | disposition home or self-care (01) ==
LOC: BWCLAB 09:38
PROVIDERS: Referring Provider Obstetrics & Gynecology; Visit Provider Obstetrics & Gynecology
DX: O09.90 Supervision of high risk pregnancy, unspecified, unspecified trimester (principal); Z3A.00 Weeks of gestation of pregnancy not specified
CPT/HCPCS: 36415; 85025; 86703; 86762; 86780; 86803; 86850; 86900; 86901; 87340

== ENCOUNTER → 2024-11-09 | Outpatient (CLI) | payer OTHER, MEDICAID, SELFPAY | END | disposition home or self-care (01) | PROVIDERS: Referring Provider Obstetrics & Gynecology; Visit Provider Obstetrics & Gynecology | DX: Z36.9 Encounter for antenatal screening, unspecified (principal) | CPT/HCPCS: 36415 ==

== ENCOUNTER → 2025-01-17 | Outpatient (CLI) | payer OTHER, MEDICAID, SELFPAY ==
[2025-01-17 12:10] LABS: Absolute Lymphocyte Count 1.59 X10^3/uL (0.83-4.51); Absolute Neutrophil Count 5.4 X10^3/uL (2.0-7.7); Basophil# 0.04 X10^3/uL; Basophil% 0.5 % (0-1); Eosinophil# 0.05 X10^3/uL; Eosinophils% 0.7 % (0-5); Hematocrit 31.5 % (37-47); Hemoglobin 10.6 g/dL (12.0-15.0); Lymphocyte # 1.59 X10^3/ul (0.83-4.51); Lymphocyte % 21.3 % (19-41); Mean Corp Hgb Conc 33.7 g/dL (32-36); Mean Corpuscular Hgb 31.2 pg (27.0-32.0); Mean Corpuscular Volume 92.6 fL (81-99); Mean Platelet Vol. 11.6 fl (6.2-12.0); Monocyte# 0.36 X10^3/uL; Monocyte% 4.8 % (0-10); NRBC Flagged by Analyzer 0 % (0-5); Neutrophil # 5.39 X10^3/uL (2.7-7.7); Neutrophil % 72.3 % (47-70); Platelet Count 280 K/mm3 (150-450); RBC Distribution Width CV 12.2 % (11.6-14.6); RBC Distribution Width SD 41.3 fl (35.1-43.9); White Blood Count 7.5 K/mm3 (4.4-11.0)
[2025-01-17 13:14] LABS: ALB/GLOB Ratio 1.1 RATIO (0.9-2.4); AST(SGOT) 16 U/L (<=31); Alanine Aminotransfer ALT/SGPT 10 U/L (<=34); Albumin, Serum 3.5 g/dL (3.5-5.0); Alkaline Phosphatase 81 U/L (35-104); Anion Gap 13 (5-15); BUN 9 mg/dL (4-19); BUN/Creat Ratio 13.1 RATIO (10-20); Calcium,Total 9.1 mg/dL (7.6-11.0); Carbon Dioxide 20.9 mmol/L (21.0-32.0); Chloride 101 mmol/L (98-108); Creatinine, Serum 0.66 mg/dL (0.70-1.20); EST Glomerular Filtration Rate 119 (>60); Globulin 3.2 g/dL (2.2-4.2); Glucose 121 mg/dL (70-99); HIV Nonreactive (Nonreactive); Potassium 3.6 mmol/L (3.3-5.1); Protein, Total 6.8 g/dL (5.9-8.4); Sodium Level 135 mmol/L (133-145); Syphilis Antibodies Nonreactive (Nonreactive); Total Bilirubin 0.22 mg/dL (0.00-1.30); Vitamin B12 230 pg/mL (180-914)
[2025-01-19 14:08] LABS: VITAMIN B6 2.7 ug/L (3.4-65.2)
== END | disposition home or self-care (01) ==
LOC: BWCLAB 08:29
PROVIDERS: Referring Provider Obstetrics & Gynecology; Visit Provider Obstetrics & Gynecology
DX: E16.2 Hypoglycemia, unspecified (principal)
CPT/HCPCS: 36415; 80053; 82607; 84207; 84439; 84443; 85025; 86703; 86780

== ENCOUNTER 2025-01-26 12:06 | Emergency (ER) | payer OTHER, MEDICAID, SELFPAY ==
[2025-01-26 12:06] VITALS: BP 107/70; PULSE 101; RESP 18; TEMP 35.8; O2SAT 99; BMI 25.4
--- NOTE | 2025-01-26 12:19 | EX.ED.DYSGE1 ---
HPI History of Present Illness Chief Complaint: Hypoglycemia Narrative Narrative: Patient is a 34-year-old female G6, P1 with previous ectopic's with tubal removal, her second ended up with placental abruption with her son passing away a few hours afterwards who presents to the emergency department currently 20 weeks with concern for recurrent episodes of low blood glucose. Patient states that she has been having this occur for few weeks now and notes that everyone just keeps telling her eat which she states that she is doing constantly and notes that approximately 30 minutes later her sensor will go off notified her that her blood glucose is low. States that her glucose is dropping further. Notes that recently she had blood work obtained and was placed on vitamin B6 and states that she has been taking this as prescribed. She notes that she has a appointment with maternal- medicine next week. She notes that she called the office of her OVERSEER [employer] as well as the maternal- medicine clinic and they advised her to eat which she states that if another individual tells her to eat she will become very frustrated as she is already doing this. Patient notes that with her first she did develop gestational diabetes. [facility] Medical History Threatened Acute bronchitis, unspecified Concentration deficit History of depression PTSD (post-traumatic stress disorder) Wears glasses Wears contact lenses Depression Anxiety Thyroid disease Ectopic Anemia Asthma Non-smoker delivery delivered Decreased movements in third trimester Abnormal Pap smear of cervix Right foot sprain Right ankle sprain Frequent headaches Cyst of face Sprain of right hand Right wrist sprain SGA (small for gestational age), , affecting care of mother, antepartum Gestational diabetes Asthma Acute wheezy bronchitis Home Medications ?Medication ?Instructions ?Recorded ?Last Taken ?Type hydroxyzine HCl 10 mg tablet 10 mg PO TID PRN anxiety #90 tabs 07/06/24 Unknown Rx ondansetron 4 mg disintegrating 4 mg PO Q6H PRN nausea and 09/08/24 Unknown Rx tablet vomiting #90 tabs bupropion HCl 150 mg tablet,12 hr 150 mg PO BID 90 days #180 ea 12/07/24 Unknown Rx sustained-release blood-glucose sensor (FreeStyle #1 ea 01/06/25 Unknown Rx Wlofgang 2 Plus Sensor device) flash glucose scanning reader #1 ea 01/06/25 Unknown Rx (FreeStyle Wolfgang 2 Harman) pen needle, diabetic 31 gauge x #100 ea 01/06/25 Unknown Rx 1/4 (Droplet Pen Needle) pyridoxine (vitamin B6) 100 mg 100 mg PO QDAY #14 tabs 01/19/25 Unknown Rx tablet blood sugar diagnostic (Blood #120 ea 01/25/25 Unknown Rx Glucose Test strips) blood-glucose meter #1 ea 01/25/25 Unknown Rx lancets 30 gauge (Droplet Lancets) #200 ea 01/25/25 Unknown Rx Allergy/AdvReac Type Severity Reaction Status Date / Time doxycycline AdvReac Mild Nausea Verified 01/17/25 08:04 Family History Grandmother Breast cancer Lung cancer Father Hypertension Mother Hypertension Thyroid disorder Asthma Grandfather Colon cancer Lung cancer Mother Diabetes Sister Depression Surgical History Previous section H/O unilateral salpingectomy (~02/12/24) H/O laparoscopy History of tonsillectomy Social History household members: spouse and children housing: house current occupational status: employed current occupation: [employer] pets and animals: Yes Smoking Status: Never smoker alcohol intake: never substance use type: does not use what type of physical activity do you participate in: none do you feel safe at home: Yes additional social history: - Rod ROS ROS ED ROS Narrative Constitutional: Denies any fevers, chills, headaches Eyes: Denies change in vision double vision blurry vision Cardiovascular: Denies chest pain Respiratory: Denies shortness of breath Abdomen: Denies abdominal pain nausea vomit diarrhea : Denies any urinary symptoms Neurological: Denies numbness, aches, tingling Musculoskeletal: Denies back pain Skin: Denies any rashes or lesions EXAM Physical Exam Narrative Exam Narrative: General: Patient lying in bed rest comfortably did not appear to be in acute distress Head: Atraumatic, normocephalic Eyes: PERRL bilaterally, EOMI by, no conjunctival injection noted Neck: Soft, supple, trachea midline Cardiovascular: Patient tachycardic with a regular rhythm no murmurs gallops rubs are noted Respiratory: Clear to auscultation bilaterally Abdomen: Soft, gravid abdomen, no tenderness to palpation Extremities: +5/5 strength noted in the bilateral upper and lower extremities, radial pulses +2/4 in bilateral extremities Neurological: Patient following commands knew that she was at [facility] year is 2024 Skin: Warm, dry, tact no rashes or lesions noted Const Vital Signs: 01/26/25 12:06 01/26/25 12:40 01/26/25 14:06 Temperature 96.4 F L 97.8 F Temperature Source Temporal Oral Pulse Rate 101 H 89 Pulse Rate [Lying] Pulse Rate [Sitting (for 1 minute prior to obtaining)] Pulse Rate [Standing (for 1 minute prior to obtaining)] Respiratory Rate 18 18 Respiratory Pattern Normal Blood Pressure 107/70 101/66 Blood Pressure [Lying] Blood Pressure [Sitting (for 1 minute prior to obtaining)] Blood Pressure [Standing (for 1 minute prior to obtaining)] Blood Pressure Mean 82 77 Blood Pressure Mean [Lying] Blood Pressure Mean [Sitting (for 1 minute prior to obtaining)] Blood Pressure Mean [Standing (for 1 minute prior to obtaining)] Pulse Ox 99 100 Oxygen Delivery Method Room Air Room Air 01/26/25 14:41 Temperature Temperature Source Pulse Rate Pulse Rate [Lying] 87 Pulse Rate [Sitting (for 1 minute prior to obtaining)] 82 Pulse Rate [Standing (for 1 minute prior to obtaining)] 99 Respiratory Rate Respiratory Pattern Blood Pressure Blood Pressure [Lying] 105/51 L Blood Pressure [Sitting (for 1 minute prior to obtaining)] 107/66 Blood Pressure [Standing (for 1 minute prior to obtaining)] 105/60 Blood Pressure Mean Blood Pressure Mean [Lying] 69 Blood Pressure Mean [Sitting (for 1 minute prior to obtaining)] 79 Blood Pressure Mean [Standing (for 1 minute prior to obtaining)] 75 Pulse Ox Oxygen Delivery Method MDM MDM MDM Narrative Medical decision making narrative: Patient is a 34-year-old female who presents to the emergency department chief complaint of recurrent bouts of hypoglycemia. On the differential diagnosis includes but limited to hypothyroidism, hypoglycemia, UTI. Once workup is obtained reviewed she will be reevaluated. Patient iogea-sf-nyus glucose here in the emergency department was noted to be 94 and this is compared to her glucose monitor in her arm this was a 24 point difference. Patient CBC was normal and showed no evidence leukocytosis white blood cell count normal at 8, hemoglobin was 10.3, platelet count 252. Patient sodium is 136, potassium at 3.5, creatinine was 0.63. Patient's AST and ALT were 15 and 9 respectively total bilirubin normal at 0.19. Patient lipase normal at 38. Patient TSH normal at 1.44, free T4 and T3 were 0.90 and 2.5 respectively. Patient's cortisol level was noted to be 28.8 this was a random draw. Urinalysis reviewed showed no evidence of infection. heart tones were 132. Orthostatic vital signs were negative however when she went from the sitting to standing she did become symptomatic with lightheadedness. Patient's glucose was rechecked as it been a few hours since she had anything to eat or drink and was noted to be 53. I discussed the case with Dr. Lyons who states that she will admit the patient to labor and delivery for further evaluation management. I discussed this plan with patient and mother at bedside they are agreeable this plan. I did have discussion again with Dr. Lyons and about the possibility of Janett syndrome from her previous placental abruption. I also added on insulin level, C-peptide level, PTH. I notified her of this as well. Lab Data Labs: Laboratory Results - last 24 hr 01/26/25 01/26/25 01/26/25 12:30 12:50 13:30 WBC 8.0 RBC 3.32 L Hgb 10.3 L Hct 30.1 L MCV 90.7 MCH 31.0 MCHC 34.2 RDW Std Deviation 39.3 RDW Coeff of [place]ane 12.1 Plt Count 252 MPV 11.3 Immature Gran % (Auto) 0.400 Neut % (Auto) 75.6 H Lymph % (Auto) 16.7 L [place] % (Auto) 6.5 Eos % (Auto) 0.4 Baso % (Auto) 0.4 Absolute Neuts (auto) 6.0 Absolute Lymphs (auto) 1.33 Nucleated RBC % 0 Sodium 136 Potassium 3.5 Chloride 102 Carbon Dioxide 22.7 Anion Gap 11 BUN 9 Creatinine 0.63 L Estim Creat Clear Calc 106.62 Est GFR (MDRD) Non-Af 120 BUN/Creatinine Ratio 14.0 Glucose 95 Calcium 8.9 Total Bilirubin 0.19 AST 15 ALT 9 Alkaline Phosphatase 84 Total Protein 6.6 Albumin 3.4 L Globulin 3.2 Albumin/Globulin Ratio 1.1 Lipase 38 TSH 1.440 Free T4 0.90 Free T3 pg/dL 2.5 Cortisol AM Sample 28.80 H Urine Color Yellow Urine Clarity Clear Urine pH 6.0 Ur Specific [place] 1.015 Urine Protein Negative Urine Glucose (UA) Normal Urine Ketones Negative Urine Occult Blood Negative Urine Nitrite Negative Urine Bilirubin Negative Urine Urobilinogen Normal Ur Leukocyte Esterase 100 H Urine RBC 0-5 SEEN Urine WBC 0-5 SEEN Ur Squamous Epith Cells 0-5 SEEN Urine Bacteria 0 SEEN Urine Mucus 1+ POC Glucose 94 Discharge Plan Triage Chief Complaint: Hypoglycemia ED Provider: Brian Dominguez Dx/Rx/DC Orders Clinical Impression: Hypoglycemia, Prescriptions: No Action hydroxyzine HCl 10 mg tablet 10 mg PO TID PRN (Reason: anxiety) Qty: 90 1RF ondansetron 4 mg tablet,disintegrating 4 mg PO Q6H PRN (Reason: nausea and vomiting) Qty: 90 4RF bupropion HCl 150 mg tablet sustained-release 12 hr 150 mg PO BID 90 Days Qty: 180 1RF (DME) FreeStyle Wolfgang 2 Plus Sensor Device See Rx Instructions .Route Qty: 1 0RF Rx Instructions: As directed (DME) pen needle, diabetic [Droplet Pen Needle] 31 gauge x 1/4 needle See Rx Instructions .ROUTE .MEDSUPPLY Qty: 100 0RF Rx Instructions: As directed (DME) FreeStyle Wolfgang 2 Harman Misc See Rx Instructions .ROUTE .MEDSUPPLY Qty: 1 0RF Rx Instructions: As directed pyridoxine (vitamin B6) 100 mg tablet 100 mg PO QDAY Qty: 14 0RF (DME) lancets [Droplet Lancets] 30 gauge misc See Rx Instructions .ROUTE .MEDSUPPLY Qty: 200 2RF Rx Instructions: Check blood sugars fasting and 2 hours after breakfast, lunch, and supper. (DME) blood-glucose meter Misc See Rx Instructions .ROUTE .MEDSUPPLY Qty: 1 0RF Rx Instructions: As directed (DME) Blood Glucose Test Strip See Rx Instructions .ROUTE .MEDSUPPLY Qty: 120 6RF Rx Instructions: Check blood sugars Fasting and 2 hours after breakfast, lunch, and dinner. Primary Care Provider: Care Physician,No Primary Referrals: Care Physician,No Primary [Primary Care Provider] - Print Language: Armenian Disposition Disposition: Acute Care Hospital [facility]
[2025-01-26] MEDS: 0.9% Normal Saline (1000mL) 1,000 ML 999 ML IV (12:48)
[2025-01-26 12:54] LABS: Hematocrit 30.1 % (37-47); Hemoglobin 10.3 g/dL (12.0-15.0); Immature Granulocytes Count 0.030 X10^3/uL (0.0-0.0); Mean Corp Hgb Conc 34.2 g/dL (32-36); Mean Corpuscular Volume 90.7 fL (81-99); Mean Platelet Vol. 11.3 fl (6.2-12.0); NRBC Flagged by Analyzer 0 % (0-5); Platelet Count 252 K/mm3 (150-450); RBC Distribution Width CV 12.1 % (11.6-14.6); RBC Distribution Width SD 39.3 fl (35.1-43.9); Red Blood Count 3.32 M/mm3 (4.2-5.4); White Blood Count 8.0 K/mm3 (4.4-11.0)
[2025-01-26 13:43] LABS: Color, Urine Yellow (Yellow); Glucose, Dipstick Normal (Normal); Ketone-Dipstick Negative (Negative); Leukocyte Esterase-Dipstick 100 /ul (Negative); Nitrite-Dipstick Negative (Negative); Occult Blood-Urine Negative /ul (Negative); Protein-Dipstick Negative (Negative); Specific Gravity, Urine 1.015 (1.002-1.030); Urine Bilirubin Dipstick Negative (Negative)
[2025-01-26 14:00] LABS: Mucous, Urine 1+ /hpf (<or=2+); Red Blood Cells-Urine 0-5 SEEN /hpf (0-5); Squamous Epithelial Cells - UA 0-5 SEEN /hpf (5-10)
[2025-01-26 14:06] VITALS: BP 101/66; PULSE 89; RESP 18; TEMP 36.6; O2SAT 100
[2025-01-26 14:25] LABS: AST(SGOT) 15 U/L (<=31); Alanine Aminotransfer ALT/SGPT 9 U/L (<=34); Albumin, Serum 3.4 g/dL (3.5-5.0); Alkaline Phosphatase 84 U/L (35-104); Anion Gap 11 (5-15); BUN 9 mg/dL (4-19); BUN/Creat Ratio 14.0 RATIO (10-20); CORTISOL AM 28.80 ug/dL (6.02-18.40); Calcium,Total 8.9 mg/dL (7.6-11.0); Carbon Dioxide 22.7 mmol/L (21.0-32.0); Chloride 102 mmol/L (98-108); Estimated Creatinine Clearance 106.62 ml/min (50-250); Free T3 2.5 pg/mL (2.18-3.98); Globulin 3.2 g/dL (2.2-4.2); Glucose 95 mg/dL (70-99); Lipase 38 U/L (13-75); Potassium 3.5 mmol/L (3.3-5.1)
[2025-01-26 14:41] VITALS: BP 105/51; BP 105/60; BP 107/66; PULSE 82; PULSE 87; PULSE 99
[2025-01-26 16:07] VITALS: BP 114/68; PULSE 100; RESP 16; TEMP 37.1; O2SAT 100
[2025-01-26 17:20] LABS: PTHIN 45 pg/mL (11-61)
[2025-01-26 17:28] LABS: Procalcitonin 0.06 ng/mL (<=0.10)
--- OUTSIDE RECORDS SUMMARY | 2025-01-27 04:41 | XMS RPT_ITS | CCD ---
Author Organization [facility] Care Team Providers Care Clinic Lpn Name Role Phone Care Physician, No Primary Primary Care Provider Unavailable Care Physician, No Primary Referring Provider Un available Dossi, Dr. Bro Attending Provider [phone] Care Physician, No Primary Primary Care Provider Unavailable Care Physician, No Primary Referring Provider Un available Dossi, Dr. Bro Attending Provider [phone] Care Physician, No Primary Attending Provider Un available SAMIA Ward Attending Provider RAJAN Witt Attending Provider Dr. Analia Mcgregor Attending Provider [phone] Dr. Saritha Salgado Attending Provider [phone] Dr. Saritha Salgado Admit Provider Dr. Saritha Salgado Other Provider Care Physician, No Primary Primary Care Provider Unavailable Care Physician, No Primary Referring Provider Un available Dossi, Dr. Bro Attending Provider [phone] Care Physician, No Primary Primary Care Provider Unavailable Care Physician, No Primary Referring Provider Un available Dossi, Dr. Bro Attending Provider [phone] Care Physician, No Primary Primary Care Provider Unavailable Care Physician, No Primary Referring Provider Un available Dr. Analia Mcgregor Attending Provider [phone] Dr. Reginaldo Saravia Attending Provider [phone] Care Physician, No Primary Primary Care Provider Unavailable Care Physician, No Primary Referring Provider Un available Dossi, Dr. Bro Attending Provider [phone] Dr. Saritha Salgado Attending Provider [phone] Dr. Saritha Salgado Admit Provider [phone] Dr. Saritha Salgado Other Provider [phone] Dr. Reginaldo Saravia Attending Provider Care Physician, No Primary Primary Care Provider Unavailable Care Physician, No Primary Referring Provider Un available Dr. Saritha Salgado Attending Provider [phone] SAMIA Borges Attending Provider Dossi, Dr. Bro Attending Provider [phone]) SAMIA Scott Attending Provider Care Physician, No Primary Primary Care Provider Unavailable Care Physician, No Primary Referring Provider Un available Dossi, Dr. Bro Attending Provider [phone]) Dr. Saritha Salgado Attending Provider [phone] Care Physician, No Primary Primary Care Provider Unavailable Care Physician, No Primary Referring Provider Un available Care Physician, No Primary Primary Care Provider Unavailable Care Physician, No Primary Referring Provider Un available Dossi, Dr. Bro Attending Provider [phone] Care Physician, No Primary Primary Care Provider Unavailable Care Physician, No Primary Referring Provider Un available Dossi, Dr. Bro Attending Provider 1(330) Dr. Saritha Salgado Attending Provider [phone] [phone] Dr. Analia Mcgregor Attending Provider 1( 30) Dr. Analia Mcgregor Referring Provider 1( 30) Dr. Analia Mcgregor Other Provider Erendira Holloway MD, Summer T Unavailable No hosiery mender, Md Primary Care Provider [facility] [place] [facility] Erendira Holloway MD, Summer T Unavailable Motter [facility], [place] Unavailable [phone] JOSEMANUEL STRINGER Attending Unavailable NO PRIMARY CAREMD Primary Care Unavailable SARITHA SALGADO Referring UnavailEDUARDO Batista Attending Unavailable NO PRIMARY CARE, Primary Care Unavailable SARITHA SALGADO Referring Unavailabl e JOSEMANUEL STRINGER Attending Unavailable NO PRIMARY CARE, Primary Care Unavailable SARITHA SALGADO Referring Unavailabl e NO PRIMARY CARE, Primary Care Unavailable ANALIA ZAIDI Attending Unavailab le ANALIA ZAIDI Referring Unavailab le NO PRIMARY CARE, Primary Care Unavailable ASHLEY VILLARREAL Attending Unavailable ASHLEY VILLARREAL Referring Unavailable NO PRIMARY CARE, Primary Care Unavailable MARGARET CARMICHAEL Attending Unavailable MARGARET CARMICHAEL Referring Unavailable SARITHA SALGADO Referring Unavailabl e NO PRIMARY CARE, Primary Care Unavailable ASHLEY VILLARREAL Attending Unavailable Care Physician, No Primary Primary Care Unava ilable Analia Mcgregor Referring Unavailabl e Analia Mcgregor Attending Unavailabl e Care Physician, No Primary Primary Care Unava ilable Care Physician, No Primary Referring Unava ilable Saritha Salgado Attending Unavailable Care Physician, No Primary Primary Care Unava ilable Albaro Jimenez Attending Unavailable Saritha Salgado Attending Unavailable Care Physician, No Primary Primary Care Unava ilable MarcanthSaritha moore Referring Unavailable Care Physician, No Primary Primary Care Unava ilable Saritha Salgado Referring Unavailable Saritha Salgado Attending Unavailable Care Physician, No Primary Primary Care Unava ilable Saritha Salgado Attending Unavailable MarcSaritha bobo Referring Unavailable Saritha Salgado Attending Unavailable Care Physician, No Primary Primary Care Unava ilable Care Physician, No Primary Primary Care Unava ilable [place] [employer] BATTERY, Karey Attending Unavailable Care Physician, No Primary Primary Care Unava ilable [place] [employer] BATTERY, Karey Attending Unavailable Reginaldo Saravia Attending Unavailable Reginaldo Saravia Referring Unavailable Care Physician, No Primary Primary Care Unava ilable Marcjeramie, Saritha Attending Unavailable Care Physician, No Primary Primary Care Unava ilable Marcjeramie, Saritha Referring Unavailable Care Physician, No Primary Primary Care Unava ilable JalynonySaritha Attending Unavailable Saritha Salgado Referring Unavailable Care Physician, No Primary Primary Care Unava ilable Marcanthoscar, Saritha Referring Unavailable Hal, Saritha Attending Unavailable Care Physician, No Primary Primary Care Unava ilable Analia Mcgregor Referring Unavailabl e Analia Mcgregor Attending Unavailabl e Care Physician, No Primary Primary Care Unava ilable Albaro Jimenez Attending Unavailable Care Physician, No Primary Primary Care Unava ilable Albaro Jimenez Attending Unavailable Care Physician, No Primary Referring Unava ilable Care Physician, No Primary Primary Care Unava ilable Saritha Salgado Attending Unavailable Marcanthoscar, Saritha Attending Unavailable Care Physician, No Primary Primary Care Unava ilable Hal, Saritha Referring Unavailable Care Physician, No Primary Primary Care Unava ilable Hal, Saritha Attending Unavailable Hal, Saritha Referring Unavailable Care Physician, No Primary Primary Care Unava ilable Care Physician, No Primary Referring Unava ilable Jessica Reyes Attending Unavailable Care Physician, No Primary Primary Care Unava ilable Damaso [place]field Attending Unavailable Care Physician, No Primary Primary Care Unava ilable Saritha Salgado Consulting Unavailable Marcanthoscar, Saritha Attending Unavailable Care Physician, No Primary Primary Care Unava ilable Care Physician, No Primary Referring Unava ilable Hal, Saritha Attending Unavailable Care Physician, No Primary Primary Care Unava ilable Albaro Jimenez Attending Unavailable Care Physician, No Primary Referring Unava ilable Care Physician, No Primary Primary Care Unava ilable Analia Mcgregor Attending Unavailabl e Care Physician, No Primary Primary Care Unava ilable Care Physician, No Primary Referring Unava ilable Saritha Salgado Attending Unavailable Marcanthoscar, Saritha Attending Unavailable Care Physician, No Primary Referring Unava ilable Care Physician, No Primary Primary Care Unava ilable Saritha Salgado Attending Unavailable Care Physician, No Primary Referring Unava ilable Care Physician, No Primary Primary Care Unava ilable Care Physician, No Primary Primary Care Unava ilable Isaac Perez Attending Unavailable Care Physician, No Primary Referring Unava ilable Care Physician, No Primary Primary Care Unava ilable Albaro Scott Attending Unavailable Care Physician, No Primary Referring Unava ilable Care Physician, No Primary Primary Care Unava ilable Analia Mcgregor Attending Unavailabl e SeeAlbaro coronado Attending Unavailable Care Physician, No Primary Primary Care Unava ilable Care Physician, No Primary Referring Unava ilable Care Physician, No Primary Primary Care Unava ilable Analia Mcgregor Attending Unavailabl e Care Physician, No Primary Primary Care Unava ilable Care Physician, No Primary Referring Unava ilable Saritha Salgado Attending Unavailable Care Physician, No Primary Primary Care Unava ilable Saritha Salgado Referring Unavailable Saritha Salgado Attending Unavailable Care Physician, No Primary Primary Care Unava ilable Analia Mcgregor Attending Unavailabl e Analia Mcgregor Referring Unavailabl e Allergies Allergy Classification Reported Allergen(s) Allergy Type Date of Onset Reaction(s) Facility (3 sources) Doxycycline; Translations: [DOXYCYCLINE] Drug Allergy 2 Rash [facility] (3 sources) Minocycline; Translations: [MINOCYCLINE] Drug Allergy 6 Nausea Only [facility] (3 sources) Ondansetron; Translations: [ONDANSETRON] Drug Allergy 2 Other (See Comments), GI Intolerance [facility] (1 source) Doxycycline Drug Allergy 5 [facility] Rep[facility] Medications Current Medications Medication Drug Class(es) Dates Sig (Normalized) Sig (Original) acetaminophen 325 mg oral capsule (1 source) Acetaminophen (TYLENOL) 325 MG CAPS Take by mouth Active albuterol 0.83 mg/ml inhalation solution (1 source) beta2-Adrenergic Agonist albuterol (VENTOLIN) (2.5 MG/3ML) 0.083% nebulizer solution Use 2.5 mg by nebulization every 4 hours Active 12 hr buPROPion hydrochloride 150 mg extended release oral tablet (1 source) Aminoketone Start: 08-18-2024 take 1 tablet by mouth twice daily buPROPion (WELLBUTRIN SR) 150 MG SR tablet Take 1 Tablet (150 mg) by mouth 2 times daily 08/18/2024 Active citalopram 20 mg oral tablet (20 sources) Serotonin Reuptake Inhibitor Start: 03-12-2022 End: 10-17-2022 take 20 mg by mouth once daily Citalopram Active 20 MG PO DAILY October 30, 2022 11:03am ethinyl estradiol 0.02 mg / levonorgestrel 0.1 mg oral tablet (20 sources) Progestin, Estrogen, Progestin-containi ng Intrauterine Device Start: 04-27-2022 AUBRA EQ 0.1-20 MG-MCG per tablet 04/27/2022 Active Start: 04-12-2022 End: 08-13-2022 Levonorgestrel-Ethinyl Estra d (Aviane) 0.1-20 mg-mcg tablet Discontinued 1 TABLET PO daily April 12, 2022 11:36am August 13, 2022 2:18pm take one tab BID x 3 days then once daily for remainder of the pack Start: 04-12-2022 End: 08-13-2022 Levonorgestrel-Ethinyl Estra d (Aviane) 0.1-20 mg-mcg tablet Discontinued 1 TABLET PO daily April 12, 2022 12:36pm August 13, 2022 3:18pm take one tab BID x 3 days then once daily for remainder of the pack Start: 04-12-2022 Levonorgestrel -Ethinyl Estrad (Aviane) 0.1-20 mg-mcg tablet Active 1 TABLET PO daily April 12, 2022 11:36am take one tab BID x 3 days then once daily for remainder of the pack Start: 04-12-2022 Levonorgestrel -Ethinyl Estrad (Aviane) 0.1-20 mg-mcg tablet Active 1 TABLET PO daily April 12, 2022 12:36pm take one tab BID x 3 days then once daily for remainder of the pack Start: 03-12-2022 End: 04-12-2022 take 1 tablet by mouth once daily Levonorgestrel-Ethinyl Estrad (Aviane) 0.1-20 mg-mcg tablet Discontinued 1 TABLET PO daily March 11, 2022 11:00pm April 12, 2022 11:37am Start: 03-12-2022 End: 04-12-2022 take 1 tablet by mouth once daily Levonorgestrel-Ethinyl Estrad (Aviane) 0.1-20 mg-mcg tablet Discontinued 1 TABLET PO daily March 12, 2022 12:00am April 12, 2022 12:37pm folic acid 20 mg oral capsule (19 sources) Start: 07-04-2022 take 5 mg by mouth once daily Folic Acid 20 MG CAPS Take by mouth 5 mg daily 07/04/2022 Active Start: 07-04-2022 take 20 mg by mouth once daily Folic Acid Active 20 MG PO DAILY July 04, 2022 12:00am hydrOXYzine hydrochloride 10 mg oral tablet (1 source) Antihistamine Start: 07-06-2024 take 1 tablet by mouth three times daily as needed for anxiety hydrOXYzine (ATARAX) 10 MG tablet 1 TAB ORALLY THREE TIMES A DAY NEEDED FOR ANXIETY 07/06/2024 Active LORazepam 0.5 mg oral tablet (20 sources) Benzodiazepine Start: 02-25-2022 End: 04-15-2022 LORazepam (ATIVAN) 0.5 MG tablet 04/15/2022 Active Multiple Vitamins-Minerals (WOMENS MULTI VITAMIN & MINERAL PO) (1 source) Multiple Vitamins-Mineral s (WOMENS MULTI VITAMIN & MINERAL PO) Take by mouth Active naproxen 500 mg oral tablet (20 sources) Nonsteroidal Anti-inflammatory Drug Start: 08-07-2022 End: 06-06-2023 take 500 mg by mouth every twelve hours at mealtime Naproxen Active 500 MG PO Q12H June 06, 2023 12:00am administer with food or milk Start: 02-25-2022 End: 03-12-2022 take 500 mg by mouth twice daily Naproxen Active 500 M G PO TWICE A DAY June 17, 2023 12:00am ondansetron 4 mg disintegrating oral tablet (20 sources) Serotonin-3 Receptor Antagonist Start: 09-08-2024 take 1 tablet by mouth every six hours as needed for nausea and vomiting ondansetron (ZOFRAN-ODT) 4 MG disintegrating tablet 1 TAB ORALLY EVERY 6 HOURS NEEDED FOR NAUSEA AND VOMITING 09/08/2024 Active Start: 08-20-2021 End: 01-18-2022 take 4 mg by mouth every eight hours Ondansetron Discontinued 4 MG PO Q8H August 20, 2021 12:00am January 18, 2022 1:11pm MV-Min-Fe Fum-FA-DHA ( 1 PO) (1 source) MV-Min- Fe Fum-FA-DHA ( 1 PO) Take by mouth Active No.144-Folic Acid () 400 mcg Tablet,Chewable (20 sources) Start: 08-20-2021 take 2 tablets by mouth once daily No.144-Folic Acid () 400 mcg Tablet,Chewable Active 2 TABLET PO DAILY August 20, 2021 5:13pm Start: 08-20-2021 End: 04-15-2022 take 2 tablets by mouth once daily No.144-Folic Acid () 400 mcg Tablet,Chewable Discontinued 2 TABLET PO DAILY August 20, 2021 12:00am April 15, 2022 2:54pm Start: 08-20-2021 End: 04-15-2022 take 2 tablets by mouth once daily No.144-Folic Acid () 400 mcg Tablet,Chewable Discontinued 2 TABLET PO DAILY August 20, 2021 1:00am April 15, 2022 3:54pm Start: 08-20-2021 take 2 tablets by mo uth once daily No.144-Folic Acid () 400 mcg Tablet,Chewable Active 2 TABLET PO DAILY August 20, 2021 1:00am progesterone 200 mg oral capsule (1 source) Progesterone Start: 07-28-2024 Progesterone ( PROMETRIUM) 200 MG 1 CAPS VAGINALLY AT BEDTIME FOR 30 DAYS CONTINUE UNTIL 10 WEEKS 07/28/2024 Active Completed/Discontinued Medications Medication Drug Class(es) Dates Sig (Normalized) Sig (Original) acetaminophen 325 mg / oxyCODONE hydrochloride 5 mg oral tablet (20 sources) Opioid Agonist Start: 01-31-2023 End: 02-07-2023 take 1 tablet by mouth every six hours Oxycodone-Acetamino phen (Percocet) 5-325 mg tablet Discontinued 1 TABLET PO EVERY 6 HOURS 10 January 31, 2023 February 06, 2023 11:04pm Start: 02-25-2022 End: 03-12-2022 take 1 tablet by mouth every six hours Oxycodone-Acetaminophen (Percocet) 5-325 mg tablet Discontinued 1 TABLET PO EVERY 6 HOURS 14 02February 25, 2022 March 12, 2022 10:56am aspirin 81 mg delayed release oral tablet (20 sources) Platelet Aggregation Inhibitor, Nonsteroidal Anti-inflammatory Drug Start: 01-18-2022 End: 03-12-2022 take 81 mg by mouth once daily Aspirin Discontinued 81 MG PO DAILY January 17, 2022 11:00pm March 12, 2022 10:56am cephalexin 500 mg oral capsule (20 sources) Cephalosporin Antibacterial Start: 08-20-2021 End: 11-26-2021 take 500 mg by mouth every six hours Cephalexin Discontinued 500 MG PO EVERY 6 HOURS August 20, 2021 12:00am November 26, 2021 3:19pm cholecalciferol 0.125 mg oral tablet (20 sources) Vitamin D Start: 08-20-2021 End: 03-12-2022 take 1 tablet by mouth once daily Cholecalciferol (Vitamin D3) (Vitamin D3) 125 mcg (5,000 unit) Tablet Discontinued 125 MCG PO DAILY August 20, 2021 12:00am March 12, 2022 10:56am cyclobenzaprine hydrochloride 10 mg oral tablet (18 sources) Muscle Relaxant Start: 09-09-2022 End: 09-14-2022 take 10 mg by mouth three times daily Cyclobenzaprine Discontinued 10 MG PO THREE TIMES A DAY 07 12September 09, 2022 12:00am September 14, 2022 12:12am Desogestrel-Ethinyl Estradiol (18 sources) Progestin, Estrogen Start: 08-13-2022 End: 10-17-2022 Desogestrel-Ethinyl Estradiol (Apri) 0.15-0.03 mg tablet Discontinued 1 TABLET PO daily August 13, 2022 12:00am October 17, 2022 8:06am Start: 08-13-2022 End: 10-17-2022 Desogestrel-Ethinyl Estradio l (Apri) 0.15-0.03 mg tablet Discontinued 1 TABLET PO daily August 13, 2022 1:00am October 17, 2022 9:06am doxylamine succinate 10 mg / pyridoxine hydrochloride 10 mg delayed release oral tablet (20 sources) Start: 08-20-2021 End: 01-18-2022 take 1 tablet by mouth twice daily Doxylamine-Pyridoxine (Vit B6) (Diclegis) 10-10 mg tablet,delayed release (DR/EC) Discontinued 1 TABLET PO TWICE A DAY August 20, 2021 12:00am January 18, 2022 1:11pm 24 hr ferrous sulfate 142 mg extended release oral tablet (20 sources) Start: 01-28-2022 End: 03-12-2022 take 1 tablet by mouth twice daily Ferrous Sulfate (Slow Fe) 142 mg (45 mg iron) tablet extended release Discontinued 142 MG PO TWICE A DAY 60 January 27, 2022 11:00pm March 12, 2022 10:56am Start: 12-25-2021 End: 01-28-2022 take 325 mg by mouth twice daily Ferrous Sulfate Discontinued 325 MG PO TWICE A DAY December 24, 2021 11:00pm January 28, 2022 9:13am ibuprofen 600 mg oral tablet (20 sources) Nonsteroidal Anti-inflammatory Drug Start: 12-06-2019 End: 03-03-2021 take 600 mg by mouth three times daily Ibuprofen Discontinued 600 MG PO THREE TIMES A DAY December 06, 2019 5:17am March 03, 2021 11:11am meclizine hydrochloride 25 mg oral tablet (18 sources) Antiemetic Start: 10-17-2022 End: 04-17-2023 take 25 mg by mouth three times daily Meclizine Discontinued 25 MG PO THREE TIMES A DAY October 16, 2022 11:00pm April 17, 2023 10:46am methylPREDNISolone 4 mg oral tablet (18 sources) Corticosteroid Start: 09-09-2022 End: 09-15-2022 take 1 tablet by mouth once Methylprednisolone (Medrol (Phuc)) 4 mg tablets,dose pack Discontinued 4 MG PO per package directions 08 01September 09, 2022 12:00am September 15, 2022 12:05am promethazine hydrochloride 25 mg oral tablet (20 sources) Phenothiazine Start: 08-20-2021 End: 01-18-2022 take 12.5-25 mg by mouth every four hours Promethazine Discontinued 12.5 - 25 MG PO Q4H August 20, 2021 12:00am January 18, 2022 1:11pm Problems Active Problems Problem Classification Problem Date Documented Da te Episodic/Chronic Abdominal pain (3 sources) Pain in pelvis; Translations: [Pelvic and perineal pain] 05-26-2023 Episodic Anxiety disorders (1 source) Post-traumatic stress disorder, unspecified; Translations: [Post-traumatic stress disorder, unspecified] Onset: 12-08-2024 Chronic Asthma (20 sources) Asthma; Translations: [Unspecified asthma, uncomplicated] 02-01-2022 Chronic Diabetes or abnormal glucose tolerance complicating ; childbirth; or the puerperium (20 sources) Gestational diabetes mellitus; Translations: [Gestational diabetes mellitus in , unspecified control] Episodic Female infertility (1 source) Female infertility associated with anovulation; Translations: [Female infertility associated with anovulation] Onset: 05-27-2024 Chronic Headache; including migraine (20 sources) Frequent headache; Translations: [Frequent headaches] 02-01-2022 Episodic Immunizations and screening for infectious disease (20 sources) Contact with or exposure to other viral diseases; Translations: [Exposure to COVID-19 virus] Episodic Menstrual disorders (20 sources) Amenorrhea; Translations: [Amenorrhea, unspecified] Onset: 04-16-2024 10-31-2022 Chronic Miscellaneous mental health disorders (20 sources) depression; Translations: [ depression] Onset: 01-17-2025 08-02-2022 Episodic Other bone disease and musculoskeletal deformities (20 sources) Segmental and somatic dysfunction; Translations: [Segmental and somatic dysfunction of cervical region] 04-11-2022 Episodic Other bone disease and musculoskeletal deformities (20 sources) Segmental and somatic dysfunction of cervical region; Translations: [Nonallopathic lesions, cervical region] Episodic Other bone disease and musculoskeletal deformities (20 sources) Segmental and somatic dysfunction of lumbar region; Translations: [Nonallopathic lesions, lumbar region] Episodic Other bone disease and musculoskeletal deformities (20 sources) Segmental and somatic dysfunction of pelvic region; Translations: [Nonallopathic lesions, pelvic region] Episodic Other bone disease and musculoskeletal deformities (20 sources) Segmental and somatic dysfunction of thoracic region; Translations: [Nonallopathic lesions, thoracic region] Episodic Other bone disease and musculoskeletal deformities (20 sources) Segmental and somatic dysfunction of sacral region; Translations: [Nonallopathic lesions, sacral region] Episodic Other complications of ; puerperium affecting management of mother (6 sources) delivery - delivered; Translations: [Encounter for delivery without indication] Episodic Other complications of ; puerperium affecting management of mother (18 sources) Deliveries by ; Translations: [Encounter for delivery without indication] 02-26-2022 Episodic Other complications of (20 sources) Hyperemesis gravidarum; Translations: [Mild hyperemesis gravidarum] 08-28-2021 Episodic Other complications of (20 sources) Poor growth affecting management; Translations: [Maternal care for other known or suspected poor growth, unspecified trimester, not applicable or unspecified] 12-13-2020 Episodic Other complications of (20 sources) Urinary tract infection in ; Translations: [Unspecified infection of urinary tract in , unspecified trimester] 08-28-2021 Episodic Other complications of (20 sources) History of gestational diabetes mellitus; Translations: [Supervision of with other poor reproductive or obstetric history, unspecified trimester] 02-25-2022 Episodic Other complications of (20 sources) Supervision of with other poor reproductive or obstetric history, unspecified trimester; Translations: [ with other poor obstetric history] Episodic Other complications of (20 sources) Reduced movement; Translations: [Decreased movements, third trimester, not applicable or unspecified] 05-03-2022 Episodic Other complications of (1 source) Supervision of high risk , unspecified, unspecified trimester; Translations: [Supervision of high risk , unspecified, unspecified trimester] Onset: 01-17-2025 Episodic Other endocrine disorders (1 source) Hypoglycemia, unspecified; Translations: [Hypoglycemia, unspecified] Onset: 01-20-2025 Chronic Other injuries and conditions due to external causes (20 sources) Injury of wrist; Translations: [Unspecified injury of right wrist, hand and finger(s), initial encounter] 02-01-2022 Episodic Other injuries and conditions due to external causes (3 sources) Injury of right wrist; Translations: [Unspecified injury of right wrist, hand and finger(s), initial encounter] 02-01-2022 Episodic Other nervous system disorders (1 source) Attention and concentration deficit; Translations: [Attention and concentration deficit] Onset: 12-08-2024 Chronic Other conditions (2 sources) [place] affected by other forms of placental separation and hemorrhage; Translations: [Other forms of placental separation and hemorrhage affecting fetus or ] 05-12-2022 Episodic Other screening for suspected conditions (not mental disorders or infectious disease) (1 source) Encounter for screening, unspecified; Translations: [Encounter for screening, unspecified] Onset: 11-12-2024 Episodic Other skin disorders (20 sources) Skin tag; Translations: [Other hypertrophic disorders of the skin] 02-01-2022 Episodic Other upper respiratory infections (20 sources) Viral upper respiratory tract infection; Translations: [Acute upper respiratory infection, unspecified] Episodic Residual codes; unclassified (20 sources) Gestation period, 39 weeks; Translations: [39 weeks gestation of ] 12-13-2020 Episodic Residual codes; unclassified (4 sources) Personal history of other complications of , childbirth and the puerperium; Translations: [Personal history of other genital system and obstetric disorders] Onset: 01-17-2025 05-12-2022 Episodic Residual codes; unclassified (2 sources) History of growth retardation; Translations: [Personal history of other specified conditions] 05-12-2022 Episodic Residual codes; unclassified (1 source) History of uterine scar from previous surgery; Translations: [History of uterine scar from previous surgery] Onset: 01-17-2025 Episodic Residual codes; unclassified (1 source) 27 weeks gestation of ; Translations: [27 weeks gestation of ] Onset: 01-17-2025 Episodic Residual codes; unclassified (1 source) 17 weeks gestation of ; Translations: [17 weeks gestation of ] Onset: 11-09-2024 Episodic Screening and history of mental health and substance abuse codes (1 source) Personal history of other mental and behavioral disorders; Translations: [Personal history of other mental and behavioral disorders] Onset: 12-08-2024 Episodic Spondylosis; intervertebral disc disorders; other back problems (20 sources) Backache; Translations: [Dorsalgia, unspecified] Episodic Spontaneous (3 sources) with abortive outcome; Translations: [Incomplete spontaneous without complication] 01-20-2023 Episodic Sprains and strains (20 sources) Sprain of ankle; Translations: [Sprain of unspecified ligament of right ankle, initial encounter] 09-09-2022 Episodic Superficial injury; contusion (20 sources) Contusion of nose; Translations: [Contusion of nose, initial encounter] 12-05-2019 Episodic Thyroid disorders (20 sources) Thyroid nodule; Translations: [Nontoxic single thyroid nodule] Onset: 06-03-2024 Chronic Unclassified (1 source) Cough, unspecified; Translations: [Cough, unspecified] Onset: 06-30-2024 Viral infection (20 sources) Disease caused by 2019-nCoV; Translations: [COVID-19] Episodic Past or Other Problems Problem Classification Problem Date Documented Da te Episodic/Chronic Acute bronchitis (20 sources) Acute bronchitis co-occurrent with wheeze; Translations: [Acute bronchitis, unspecified] Onset: 06-30-2024 12-13-2020 Episodic Conditions associated with dizziness or vertigo (11 sources) Dizziness and giddiness; Translations: [Dizziness and giddiness] Onset: 10-06-2024 10-17-2022 Episodic Ectopic (20 sources) Ectopic ; Translations: [Unspecified ectopic without intrauterine ] Onset: 04-02-2024 01-26-2023 Episodic Fluid and electrolyte disorders (1 source) Dehydration; Translations: [Dehydration] Onset: 05-29-2024 Episodic Hemorrhage during ; abruptio placenta; placenta previa (4 sources) Threatened miscarriage; Translations: [Threatened ] Onset: 09-04-2024 01-14-2023 Episodic Nausea and vomiting (1 source) Nausea with vomiting, unspecified; Translations: [Nausea with vomiting, unspecified] Onset: 10-08-2024 Episodic Other complications of ; puerperium affecting management of mother (2 sources) Suspected abnormality affecting management of mother; Translations: [Maternal care for (suspected) abnormality and damage, unspecified, not applicable or unspecified] Onset: 08-05-2019 Resolved: 05-12-2022 05-12-2022 Episodic Other complications of (1 source) Vomiting of , unspecified; Translations: [Vomiting of , unspecified] Onset: 09-08-2024 Episodic Other complications of (1 source) Supervision of high risk , unspecified, first trimester; Translations: [Supervision of high risk , unspecified, first trimester] Onset: 09-10-2024 Episodic Other and delivery including normal (20 sources) Normal ; Translations: [Encounter for supervision of normal , unspecified, unspecified trimester] Onset: 10-06-2024 Episodic Residual codes; unclassified (2 sources) Family history of cancer; Translations: [Family history of malignant neoplasm, unspecified] Resolved: 10-01-2024 05-12-2022 Episodic Residual codes; unclassified (1 source) 12 weeks gestation of ; Translations: [12 weeks gestation of ] Onset: 10-06-2024 Episodic Residual codes; unclassified (1 source) 8 weeks gestation of ; Translations: [8 weeks gestation of ] Onset: 09-08-2024 Episodic Unclassified (20 sources) Cyst of face; Translations: [Cyst of face] 02-01-2022 Results Test Name Value Interpretation Reference Range Facility [id number] 01-19-2025 VITAMIN B6 2.7 ug/L Low 3.4-65.2 [facility] Comment on above: Order Comment: Test( s) [id number] B6was developed and its performance characteristicsdetermined by [facility]. It has not been cleared or approvedby the Food and Drug Administration. Result Comment: Defi ciency: <3.4 Marginal: 3.4 - 5.1 Adequate: >5.1 Performed at: [address] [id number] Air Sealing Technician: Nae Mendiola MD, Phone: [phone] Performed By: #### L 506.0400, L3300.8200, L501.9520, L100.0100, L503.0106, L3890.6006, L500.4050, L509.8002 ####[facility] [address] [place], [place], [id number] CBC W/Diff, Automatedon 12-21 Absolute Lymph 1.59 X10 3/uL Normal 0.83-4.51 [facility] Comment on above: Performed By: #### L 506.0400, L3300.8200, L501.9520, L100.0100, L503.0106, L3890.6006, L500.4050, L509.8002 ####[facility] [address] [place], [address] Absolute Neut 5.4 X10 3/uL Normal 2.0-7.7 [facility] Comment on above: Performed By: #### L 506.0400, L3300.8200, L501.9520, L100.0100, L503.0106, L3890.6006, L500.4050, L509.8002 ####[facility] [address] [place], [address] Basophils/100 WBC (Bld) 0.5 % Normal 0-1 [facility] Comment on above: Performed By: #### L 506.0400, L3300.8200, L501.9520, L100.0100, L503.0106, L3890.6006, L500.4050, L509.8002 ####[facility] [address] [place], [address] Eosinophils/100 WBC (Bld) 0.7 % Normal 0-5 [facility] Comment on above: Performed By: #### L 506.0400, L3300.8200, L501.9520, L100.0100, L503.0106, L3890.6006, L500.4050, L509.8002 ####[facility] [address] [place], [address] Erythrocyte distribution width (RBC) [Ratio] 12.2 % Normal 11.6-14.6 [facility] Comment on above: Performed By: #### L 506.0400, L3300.8200, L501.9520, L100.0100, L503.0106, L3890.6006, L500.4050, L509.8002 ####[facility] [address] [place], [address] Hematocrit (Bld) [Volume fraction] 31.5 % Low 37-47 [facility] Comment on above: Performed By: #### L 506.0400, L3300.8200, L501.9520, L100.0100, L503.0106, L3890.6006, L500.4050, L509.8002 ####[facility] [address] [place], [address] Hemoglobin (Bld) [Mass/Vol] 10.6 g/dL Low 12.0-15.0 [facility] Comment on above: Performed By: #### L 506.0400, L3300.8200, L501.9520, L100.0100, L503.0106, L3890.6006, L500.4050, L509.8002 ####[facility] [address] [place], [address] IG% 0.400 Normal 0.0-0.9 [facility] Comment on above: Result Comment: IG% - Immature Granulocytes (promyelocytes, myelocytes and metamyelocytes) > 1% indicates that a LEFT SHIFT is Present. Performed By: #### L 506.0400, L3300.8200, L501.9520, L100.0100, L503.0106, L3890.6006, L500.4050, L509.8002 ####[facility] [address] [place], [address] Lymphocytes/100 WBC (Bld) 21.3 % Normal 19-41 [facility] Comment on above: Performed By: #### L 506.0400, L3300.8200, L501.9520, L100.0100, L503.0106, L3890.6006, L500.4050, L509.8002 ####[facility] [address] [place], [address] MCH (RBC) [Entitic mass] 31.2 pg Normal 27.0-32.0 [facility] Comment on above: Performed By: #### L 506.0400, L3300.8200, L501.9520, L100.0100, L503.0106, L3890.6006, L500.4050, L509.8002 ####[facility] [address] [place], [address] MCHC (RBC) [Mass/Vol] 33.7 g/dL Normal 32-36 [facility] Comment on above: Performed By: #### L 506.0400, L3300.8200, L501.9520, L100.0100, L503.0106, L3890.6006, L500.4050, L509.8002 ####[facility] [address] [place], [address] MCV (RBC) [Entitic vol] 92.6 fL Normal 81-99 [facility] Comment on above: Performed By: #### L 506.0400, L3300.8200, L501.9520, L100.0100, L503.0106, L3890.6006, L500.4050, L509.8002 ####[facility] [address] [place], [address] Monocytes/100 WBC (Bld) 4.8 % Normal 0-10 [facility] Comment on above: Performed By: #### L 506.0400, L3300.8200, L501.9520, L100.0100, L503.0106, L3890.6006, L500.4050, L509.8002 ####[facility] [address] [place], [address] Neutrophils/100 WBC (Bld) 72.3 % High 47-70 [facility] Comment on above: Performed By: #### L 506.0400, L3300.8200, L501.9520, L100.0100, L503.0106, L3890.6006, L500.4050, L509.8002 ####[facility] [address] [place], [address] Nucleated RBC (Bld) [#/Vol] 0 10*3/uL Normal 0-5 [facility] Comment on above: Performed By: #### L 506.0400, L3300.8200, L501.9520, L100.0100, L503.0106, L3890.6006, L500.4050, L509.8002 ####[facility] [address] [place], [address] Platelet mean volume (Bld) [Entitic vol] 11.6 fL Normal 6.2-12.0 [facility] Comment on above: Performed By: #### L 506.0400, L3300.8200, L501.9520, L100.0100, L503.0106, L3890.6006, L500.4050, L509.8002 ####[facility] [address] [place], [address] Platelets (Bld) [#/Vol] 280 10*3/uL Normal 150-450 [facility] Comment on above: Performed By: #### L 506.0400, L3300.8200, L501.9520, L100.0100, L503.0106, L3890.6006, L500.4050, L509.8002 ####[facility] [address] [place], [address] RBC (Bld) [#/Vol] 3.40 10*6/uL Low 4.2-5.4 [facility] Comment on above: Performed By: #### L 506.0400, L3300.8200, L501.9520, L100.0100, L503.0106, L3890.6006, L500.4050, L509.8002 ####[facility] [address] [place], [address] RDW SD 41.3 fl Normal 35.1-43.9 [facility] Comment on above: Performed By: #### L 506.0400, L3300.8200, L501.9520, L100.0100, L503.0106, L3890.6006, L500.4050, L509.8002 ####[facility] [address] [place], [address] WBC (Bld) [#/Vol] 7.5 10*3/uL Normal 4.4-11.0 [facility] Comment on above: Performed By: #### L 506.0400, L3300.8200, L501.9520, L100.0100, L503.0106, L3890.6006, L500.4050, L509.8002 ####[facility] [address] [place], [address] Comprehensive Metabolic Prof ilon 01-17-2025 Albumin [Mass/Vol] 3.5 g/dL Normal 3.5-5.0 [facility] Comment on above: Performed By: #### L 506.0400, L3300.8200, L501.9520, L100.0100, L503.0106, L3890.6006, L500.4050, L509.8002 ####[facility] [address] [place], [address] Albumin/Globulin [Mass ratio] 1.1 {ratio} Normal 0.9-2.4 [facility] Comment on above: Performed By: #### L 506.0400, L3300.8200, L501.9520, L100.0100, L503.0106, L3890.6006, L500.4050, L509.8002 ####[facility] [address] [place], [address] ALK PHOS 81 U/L Normal 35-104 [facility] Comment on above: Performed By: #### L 506.0400, L3300.8200, L501.9520, L100.0100, L503.0106, L3890.6006, L500.4050, L509.8002 ####[facility] [address] [place], [address] ALT [Catalytic activity/Vol] 10 U/L Normal <=34 [facility] Comment on above: Performed By: #### L 506.0400, L3300.8200, L501.9520, L100.0100, L503.0106, L3890.6006, L500.4050, L509.8002 ####[facility] [address] [place], [address] AST [Catalytic activity/Vol] 16 U/L Normal <=31 [facility] Comment on above: Performed By: #### L 506.0400, L3300.8200, L501.9520, L100.0100, L503.0106, L3890.6006, L500.4050, L509.8002 ####[facility] [address] [place], [address] Bilirubin [Mass/Vol] 0.22 mg/dL Normal 0.00-1.30 [facility] Comment on above: Performed By: #### L 506.0400, L3300.8200, L501.9520, L100.0100, L503.0106, L3890.6006, L500.4050, L509.8002 ####[facility] [address] [place], [address] BUN/CRE 13.1 RATIO Normal 10-20 [facility] Comment on above: Performed By: #### L 506.0400, L3300.8200, L501.9520, L100.0100, L503.0106, L3890.6006, L500.4050, L509.8002 ####[facility] [address] [place], [address] Calcium [Mass/Vol] 9.1 mg/dL Normal 7.6-11.0 [facility] Comment on above: Performed By: #### L 506.0400, L3300.8200, L501.9520, L100.0100, L503.0106, L3890.6006, L500.4050, L509.8002 ####[facility] [address] [place], [address] Chloride [Moles/Vol] 101 mmol/L Normal 98-108 [facility] Comment on above: Performed By: #### L 506.0400, L3300.8200, L501.9520, L100.0100, L503.0106, L3890.6006, L500.4050, L509.8002 ####[facility] [address] [place], [address] CO2 [Moles/Vol] 20.9 mmol/L Low 21.0-32.0 [facility] Comment on above: Performed By: #### L 506.0400, L3300.8200, L501.9520, L100.0100, L503.0106, L3890.6006, L500.4050, L509.8002 ####[facility] [address] [place], [address] Creatinine [Mass/Vol] 0.66 mg/dL Low 0.70-1.20 [facility] Comment on above: Performed By: #### L 506.0400, L3300.8200, L501.9520, L100.0100, L503.0106, L3890.6006, L500.4050, L509.8002 ####[facility] [address] [place], [address] GAP 13 Normal 5-15 [facility] Comment on above: Performed By: #### L 506.0400, L3300.8200, L501.9520, L100.0100, L503.0106, L3890.6006, L500.4050, L509.8002 ####[facility] [address] [place], [address] GFR/1.73 sq M.predicted among non-blacks MDRD (S/P/Bld) [Vol rate/Area] 119 mL/min/{1.73_m2} Normal >60 [facility] Comment on above: Result Comment: mL/m in/1.73m2 CKD-EPI Creatinine Equation (2020) Performed By: #### L 506.0400, L3300.8200, L501.9520, L100.0100, L503.0106, L3890.6006, L500.4050, L509.8002 ####[facility] [address] [place], [address] Globulin (S) [Mass/Vol] 3.2 g/dL Normal 2.2-4.2 [facility] Comment on above: Performed By: #### L 506.0400, L3300.8200, L501.9520, L100.0100, L503.0106, L3890.6006, L500.4050, L509.8002 ####[facility] [address] [place], [address] Glucose [Mass/Vol] 121 mg/dL High 70-99 [facility] Comment on above: Performed By: #### L 506.0400, L3300.8200, L501.9520, L100.0100, L503.0106, L3890.6006, L500.4050, L509.8002 ####[facility] [address] [place], [address] Potassium [Moles/Vol] 3.6 mmol/L Normal 3.3-5.1 [facility] Comment on above: Performed By: #### L 506.0400, L3300.8200, L501.9520, L100.0100, L503.0106, L3890.6006, L500.4050, L509.8002 ####[facility] [address] [place], [address] Sodium [Moles/Vol] 135 mmol/L Normal 133-145 [facility] Comment on above: Performed By: #### L 506.0400, L3300.8200, L501.9520, L100.0100, L503.0106, L3890.6006, L500.4050, L509.8002 ####[facility] [address] [place], [place], [address] T PROT 6.8 g/dL Normal 5.9-8.4 [facility] Comment on above: Performed By: #### L 506.0400, L3300.8200, L501.9520, L100.0100, L503.0106, L3890.6006, L500.4050, L509.8002 ####[facility] [address] [place], [address] Urea nitrogen [Mass/Vol] 9 mg/dL Normal 4-19 [facility] Comment on above: Performed By: #### L 506.0400, L3300.8200, L501.9520, L100.0100, L503.0106, L3890.6006, L500.4050, L509.8002 ####[facility] [address] [place], [address] HIVon 01-17-2025 HIV Non-Reactive Normal Nonreactive [facility] Comment on above: Result Comment: Non- Reactive Reactive Repeatedly reactive samples must be confirmed according to CDC recommended confirmatory algorithms. The subresults for either HIVAG or AHIV can be used as an aid in the selection of the confirmation algorithm for reactive samples. Send out specimens with Reactive results to [facility] for confirmation. Order the HIV antibody detection and differentiation: [id number] Performed By: #### L 506.0400, L3300.8200, L501.9520, L100.0100, L503.0106, L3890.6006, L500.4050, L509.8002 ####[facility] [address] [place], [place], [id number] Violin Restorer Office Visit Reporton 01-17-2025 Violin Restorer Office Visit Report [facility], [address] [place] [address] OFFICE VISIT Date of Service: 01/17/25 MR#: [id number] Acct: [id number] Name: YESSI ANNE Rep #: [id number] : 1990 Provider: Dr. Analia Valverde DO Age/Sex: 34/F Location: [facility] Status: Signed Intake Vital Signs 01/06/25 15:54 01/17/25 08:06 Height 5 ft 1 in 5 ft 1 in Weight: 134 lb 8 oz BMI 25.4 BP 103/73 Intake Visit Reasons: 27 wk ob Hospice Administrator Required: No Is patient in pain?: No Allergies doxycycline Adverse Reaction (Mild, Verified 01/17/25 08:04) Nausea Medications ???Medication ???Instructions ???Recorded ???Confirmed ???Type hydroxyzine HCl 10 mg tablet 10 mg PO TID PRN anxiety #90 tabs 07/06/24 01/17/25 Rx ondansetron 4 mg disintegrating 4 mg PO Q6H PRN nausea and 5 01/17/25 Rx tablet vomiting #90 tabs prochlorperazine maleate 10 mg 10 mg PO Q8H PRN nausea and 01/17/25 Rx tablet (Compazine) vomiting #90 tabs folic acid 1 mg tablet 5 mg PO QDAY 10/19/24 01/17/25 His tory bupropion HCl 150 mg tablet,12 hr 150 mg PO BID 90 days #180 ea 01/17/25 Rx sustained-release blood-glucose sensor (FreeStyle #1 ea 01/06/25 01/17/25 Rx Wolfgang 2 Plus Sensor device) flash glucose scanning reader #1 ea 01/06/25 01/17/25 Rx (FreeStyle Wolfgang 2 [place]) pen needle, diabetic 31 gauge x #100 ea 01/06/25 01/17/25 Rx 1/4 (Droplet Pen Needle) Last Menstrual Period: 05/20/23 Zika: Zika virus screening: Negative : No PFSH PFSH Medical History Threatened Acute bronchitis, unspecified Concentration deficit History of depression PTSD (post-traumatic stress disorder) Wears glasses Wears contact lenses Depression Anxiety Thyroid disease Ectopic Anemia Asthma Non-smoker delivery delivered Decreased movements in third trimester Abnormal Pap smear of cervix Right foot sprain Right ankle sprain Frequent headaches Cyst of face Sprain of right hand Right wrist sprain SGA (small for gestational age), , affecting care of mother, antepartum Gestational diabetes Asthma Acute wheezy bronchitis Surgical History Previous section H/O unilateral salpingectomy ( 02/12/24) H/O laparoscopy History of tonsillectomy Family History Grandmother Breast cancer Lung cancer Father Hypertension Mother Hypertension Thyroid disorder Asthma Grandfather Colon cancer Lung cancer Mother Diabetes Sister Depression Social History household members: spouse and children housing: house current occupational status: employed current occupation: [employer] pets and animals: Yes Smoking Status: Never smoker alcohol intake: never substance use type: does not use what type of physical activity do you participate in: none do you feel safe at home: Yes additional social history: - Rod History 6 Elective abortions Hx Para 1 Spontaneous abortions 1 Hx # Term Pregnancies 2 Ectopic pregnancies 2 Hx # Pregnancies Multiple births # of living children 1 Past Pregnancies Del. Date Name GA/Weeks Outcome Route Bth Weight Infant Gen Labor Lgth Anesthesia Del Locatn Provider FOB Unknown 2017 SAB Unknown 2022 Ectopic Unknown 2023 Ectopic 12/05/19 Gretel 39 live - full term 6lbs 1oz Female 12 hours epidural [facility] Dr. Erendira Velasco 02/25/22 Miguel Angel 37 live - full term Male [facility] Hilaria rcanthoelisa Delivery Date: 12/05/19 Last Updated by: Valerie Escoto Gestational diabetes, small for gestational age Delivery Date: 02/25/22 Last Updated by: Jaclyn Freire decl LTCS STAT. baby transported to [place] with anemia and passed @ 1812 of pulmonary hemorrhage HPI 27 wk ob Details: YESSI ANNE is a 34 year old who presents for routine OB visit. OB Visit ANISA Calculator Estimated Delivery Date Method Current WG Current Estimate 04/17/25 Ultrasound #1 27w 1d Expected Delivery Route/Plan TOLAC if able patient counseled regarding risks/benefits of trial of labor versus repeat . ACOG/uptodate education given to patient. [] % likelihood of success per calculator TOLAC consent form signed: [] Specific Issue/Plans Covid status: [] Flu vaccine: [] Tdap vaccine: [] Rhogam: [] LARC form signed: [] Problem list reviewed and updated with the most current plan of care details and appropriate orders placed. Relevant counseling for the gestationa (more content not included)... Normal [facility] Syphilis Antibodieson 2024 Syphilis Abs Non-Reactive Normal Nonreactive [facility] Comment on above: Performed By: #### L 506.0400, L3300.8200, L501.9520, L100.0100, L503.0106, L3890.6006, L500.4050, L509.8002 ####[facility] [address] [place], [address] T4 Free Directon 01-17-2025 T4 FREE DIRECT 1.00 ng/dL Normal 0.76-1.46 [facility] Comment on above: Performed By: #### L 506.0400, L3300.8200, L501.9520, L100.0100, L503.0106, L3890.6006, L500.4050, L509.8002 ####[facility] [address] [place], [place], [id number]) Thyroid Stim Hormone (TSH)on 01-17-2025 TSH 1.760 uIU/mL Normal 0.300-4.200 [facility] Comment on above: Performed By: #### L 506.0400, L3300.8200, L501.9520, L100.0100, L503.0106, L3890.6006, L500.4050, L509.8002 ####[facility] [address] [place], [address] Vitamin B12on 01-17-2025 Cobalamin (Vitamin B12) [Mass/Vol] 230 pg/mL Normal 180-914 [facility] Comment on above: Performed By: #### L 506.0400, L3300.8200, L501.9520, L100.0100, L503.0106, L3890.6006, L500.4050, L509.8002 ####[facility] [address] [place], [address] Violin Restorer Office Visit Reporton 01-06-2025 Violin Restorer Office Visit Report [facility] [address], [address] [place] [address] OFFICE VISIT Date of Service: 01/06/25 MR#: [id number] Acct: [id number] Name: YESSI ANNE Rep #: [id number] : 1990 Provider: Dr. Analia Valverde DO Age/Sex: 34/F Location: [facility] Status: Signed Intake Vital Signs 12/08/24 15:12 01/06/25 15:54 01/06/25 15:54 Height 5 ft 1 in 5 ft 1 in 5 ft 1 in Weight: 137 lb 2 oz BMI 25.9 BP 103/64 Intake Visit Reasons: 25 wk ob *high risk* Hospice Administrator Required: No Is patient in pain?: No Allergies doxycycline Adverse Reaction (Mild, Verified 01/06/25 15:54) Nausea Medications ???Medication ???Instructions ???Recorded ???Confirmed ???Type hydroxyzine HCl 10 mg tablet 10 mg PO TID PRN anxiety #90 tabs 07/06/24 01/06/25 Rx ondansetron 4 mg disintegrating 4 mg PO Q6H PRN nausea and 5 01/06/25 Rx tablet vomiting #90 tabs prochlorperazine maleate 10 mg 10 mg PO Q8H PRN nausea and 01/06/25 Rx tablet (Compazine) vomiting #90 tabs folic acid 1 mg tablet 5 mg PO QDAY 10/19/24 01/06/25 His tory bupropion HCl 150 mg tablet,12 hr 150 mg PO BID 90 days #180 ea 01/06/25 Rx sustained-release blood-glucose sensor (FreeStyle #1 ea 01/06/25 01/06/25 Rx Wolfgang 2 Plus Sensor device) flash glucose scanning reader #1 ea 01/06/25 01/06/25 Rx (FreeStyle Wolfgang 2 [place]) pen needle, diabetic 31 gauge x #100 ea 01/06/25 01/06/25 Rx 1/ (Droplet Pen Needle) Last Menstrual Period: 05/20/23 Zika: Zika virus screening: Negative : No PFSH PFSH Medical History Threatened Acute bronchitis, unspecified Concentration deficit History of depression PTSD (post-traumatic stress disorder) Wears glasses Wears contact lenses Depression Anxiety Thyroid disease Ectopic Anemia Asthma Non-smoker delivery delivered Decreased movements in third trimester Abnormal Pap smear of cervix Right foot sprain Right ankle sprain Frequent headaches Cyst of face Sprain of right hand Right wrist sprain SGA (small for gestational age), , affecting care of mother, antepartum Gestational diabetes Asthma Acute wheezy bronchitis Surgical History Previous section H/O unilateral salpingectomy ( 02/12/24) H/O laparoscopy History of tonsillectomy Family History Grandmother Breast cancer Lung cancer Father Hypertension Mother Hypertension Thyroid disorder Asthma Grandfather Colon cancer Lung cancer Mother Diabetes Sister Depression Social History household members: spouse and children housing: house current occupational status: employed 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 Date Name GA/Weeks Outcome Route Bth Weight Gen Labor Lgth Anesthesia Del Locatn Provider FOB Unknown 2017 SAB Unknown 2022 Ectopic Unknown 2023 Ectopic 12/05/19 Gretel 39 live - full term 6lbs 1oz Female 12 hours epidural [facility] Dr. Erendira Velasco 02/25/22 Miguel Angel 37 live - full term Male [facility] Hilaria rcanthony Delivery Date: 12/05/19 Last Updated by: Valerie Escoto Gestational diabetes, small for gestational age Delivery Date: 02/25/22 Last Updated by: Jaclyn Ferire [facility] STAT. baby transported to [place] with anemia and passed @ 1812 of pulmonary hemorrhage HPI 25 wk ob *high risk* Details: YESSI ANNE is a 34 year old who presents for routine OB visit. OB Visit ANISA Calculator Estimated Delivery Date Method Current WG Current Estimate 04/17/25 Ultrasound #1 25w 4d Expected Delivery Route/Plan TOLAC if able patient counseled regarding risks/benefits of trial of labor versus repeat . ACOG/uptodate education given to patient. [] % likelihood of success per calculator TOLAC consent form signed: [] Specific Issue/Plans Covid status: [] Flu vaccine: [] Tdap vaccine: [] Rhogam: [] LARC form signed: [] Problem list reviewed and updated with the most current plan of care details and appropriate orders (more content not included)... Normal [facility] Violin Restorer Office Visit Reporton 12-08-2024 Violin Restorer Office Visit Report [facility] [address], [address] [place] [address] OFFICE VISIT Date of Service: 12/08/24 MR#: [id number] Acct: [id number] Name: YESSI ANNE Rep #: [id number] 9 : 1990 Provider: Dr. Analia Valverde, Age/Sex: 34/F [place] [facility] [place]: Signed Intake Vital Signs 11/09/24 08:49 11/09/24 09:48 12/07/24 07:31 12/08/24 15:12 Height 5 ft 1 in 5 ft 1 in 5 ft 1 in 5 ft 1 in Weight: 136 lb BMI 25.7 BP 97/66 Intake Visit Reasons: 21 WK OB *HIGH RISK Hospice Administrator Required: No Is patient in pain?: No Allergies doxycycline Adverse Reaction (Mild, Verified 12/08/24 15:10) Nausea Medications ???Medication ???Instructions ???Recorded ???Confirmed ???Type hydroxyzine HCl 10 mg tablet 10 mg PO TID PRN anxiety #90 tabs 07/06/24 12/08/24 Rx ondansetron 4 mg disintegrating 4 mg PO Q6H PRN nausea and 5 12/08/24 Rx tablet vomiting #90 tabs prochlorperazine maleate 10 mg 10 mg PO Q8H PRN nausea and 12/08/24 Rx tablet (Compazine) vomiting #90 tabs folic acid 1 mg tablet 5 mg PO QDAY 10/19/24 12/08/24 His tory bupropion HCl 150 mg tablet,12 hr 150 mg PO BID 90 days #180 ea 12/08/24 Rx sustained-release Last Menstrual Period: 05/20/23 Zika: Zika virus screening: Negative : No PFSH PFSH Medical History Threatened Acute bronchitis, unspecified Concentration deficit History of depression PTSD (post-traumatic stress disorder) Wears glasses Wears contact lenses Depression Anxiety Thyroid disease Ectopic Anemia Asthma Non-smoker delivery delivered Decreased movements in third trimester Abnormal Pap smear of cervix Right foot sprain Right ankle sprain Frequent headaches Cyst of face Sprain of right hand Right wrist sprain SGA (small for gestational age), , affecting care of mother, antepartum Gestational diabetes Asthma Acute wheezy bronchitis Surgical History Previous section H/O unilateral salpingectomy ( 02/12/24) H/O laparoscopy History of tonsillectomy Family History Grandmother Breast cancer Lung cancer Father Hypertension Mother Hypertension Thyroid disorder Asthma Grandfather Colon cancer Lung cancer Mother Diabetes Sister Depression Social History household members: spouse and children housing: house current occupational status: employed current occupation: [employer] pets and animals: Yes Smoking Status: Never smoker alcohol intake: never substance use type: does not use what type of physical activity do you participate in: none do you feel safe at home: Yes additional social history: - Rod History 6 Elective abortions Hx Para 1 Spontaneous abortions 1 Hx # Term Pregnancies 2 Ectopic pregnancies 2 Hx # Pregnancies Multiple births # of living children 1 Past Pregnancies Del. Date Name GA/Weeks Outcome Route Bth Weight Infant Gen Labor Lgth Anesthesia Del Locatn Provider FOB Unknown 2017 SAB Unknown 2022 Ectopic Unknown 2023 Ectopic 12/05/19 Gretel 39 live - full term 6lbs 1oz Female 12 hours epidural [facility] Dr. Erendira Velasco 02/25/22 Miguel Angel 37 live - full term Male [facility] Hilaria florentino Delivery Date: 12/05/19 Last Updated by: Valerie Escoto Gestational diabetes, small for gestational age Delivery Date: 02/25/22 Last Updated [facility]: [facility] baby transported to [place] with anemia and passed @ 181 of pulmonary hemorrhage HPI 21 WK OB *HIGH RISK Details: YESSI ANNE is a 34 year old who presents for routine OB visit. OB Visit ANISA Calculator Estimated Delivery Date Method Current Current Estimate 04/17/25 Ultrasound #1 21w 3d Expected Delivery Route/Plan TOLAC if able patient counseled regarding risks/benefits of trial of labor versus repeat . ACOG/uptodate education given to patient. [] % likelihood of success per calculator TOLAC consent form signed: [] Specific Issue/Plans Covid status: [] Flu vaccine: [] Tdap vaccine: [] Rhogam: [] LARC form signed: [] Problem list reviewed and updated with the most current plan of care details and appropriate orders placed. Relevant counseling for the gestational age provided. Continue routine care and follow up unless otherwise noted in visit notes/problem list details Initial Weight: Not Recorded Date -???-???-???-???-???-???-?? ?-???-???-? (more content not included)... Normal [facility] MR/Antoinette 12-07-2024 MR/PATRICIA. [facility] [address] [facility], [address] [place] [id number] OFFICE VISIT Date of Service: 12/07/24 MR#: [id number] Acct: [id number] Name: YESSI ANNE Rep #: [id number] : 1990 Provider: Dr. Albaro Harvey se, DO Age/Sex: 34/F Location: [facility] [place].[facility] Status: Signed Intake Vital Signs 10/19/24 06:41 11/09/24 09:48 12/07/24 07:31 Height 5 ft 1 in 5 ft 1 in 5 ft 1 in Weight: 133 lb BMI 25.1 BP 100/68 Blood Pressure Location Lt brachial Position Sitting Respiration 16 Pulse 91 Pulse Source Monitor BP Intake Visit Reasons: Follow up Accompanied by: Self Allergies doxycycline Adverse Reaction (Mild, Verified 12/07/24 07:33) Nausea Medications ???Medication ???Instructions ???Recorded ???Confirmed ???Type hydroxyzine HCl 10 mg tablet 10 mg PO TID PRN anxiety #90 tabs 07/06/24 12/07/24 Rx ondansetron 4 mg disintegrating 4 mg PO Q6H PRN nausea and 5 12/07/24 Rx tablet vomiting #90 tabs ondansetron 4 mg disintegrating 4 mg PO Q6H PRN nausea and 5 12/07/24 Rx tablet vomiting #10 tabs prochlorperazine maleate 10 mg 10 mg PO Q8H PRN nausea and 12/07/24 Rx tablet (Compazine) vomiting #90 tabs folic acid 1 mg tablet 5 mg PO QDAY 10/19/24 12/07/24 His tory bupropion HCl 150 mg tablet,12 hr 150 mg PO BID 90 days #180 ea 12/07/24 Rx sustained-release PFSH Medical History Threatened Acute bronchitis, unspecified Concentration deficit History of depression PTSD (post-traumatic stress disorder) Wears glasses Wears contact lenses Depression Anxiety Thyroid disease Ectopic Anemia Asthma Non-smoker delivery delivered Decreased movements in third trimester Abnormal Pap smear of cervix Right foot sprain Right ankle sprain Frequent headaches Cyst of face Sprain of right hand Right wrist sprain SGA (small for gestational age), , affecting care of mother, antepartum Gestational diabetes Asthma Acute wheezy bronchitis Surgical History Previous section H/O unilateral salpingectomy ( 02/12/24) H/O laparoscopy History of tonsillectomy Family History Grandmother Breast cancer Lung cancer Father Hypertension Mother Hypertension Thyroid disorder Asthma Grandfather Colon cancer Lung cancer Mother Diabetes Sister Depression Social History household members: spouse and children housing: house current occupational status: employed current occupation: [employer] pets and animals: Yes Smoking Status: Never smoker alcohol intake: never substance use type: does not use what type of physical activity do you participate in: none do you feel safe at home: Yes additional social history: - Rod Female Reproductive History Menstrual Ab spontaneous: 1 Ectopics: 2 HPI History of Present Illness History provided by: patient HPI: Yessi Anne is a 34 year old female who presents today for follow up evaluation. Is currently 21 weeks at this time. Weight has largely stabilized. Had anatomy ultrasound and things were good per self report. Feels like medication is still working well. Work continues to be stable. Denies SI/HI or AVH. Has not been following with [facility] in recent past, mainly due to scheduling. Sleep has been doing well. Review of Systems Constitutional Denies: fever(s), change in weight or fatigue Eyes Denies: change in vision, blurry vision, eye discomfort or eye discharge Ears, Nose, Mouth, Throat Denies: dysphagia, hoarseness, ear or mastoid pain, ear discharge, change in hearing, tinnitus, nasal congestion or epistaxis Cardiovascular Denies: chest pain or dyspnea Respiratory Denies: dyspnea or wheezing Gastrointestinal Reports: nausea; Denies: abdominal pain, hematemesis, heartburn, diarrhea, constipation, bloating, dysphagia, change in bowel habits or hematochezia Genitourinary Denies: urinary frequency, urinary urgency, urinary incontinence, hematuria, vaginal discharge or genital pruritis Musculoskeletal Denies: extremity pain, joint swelling, muscle cramps or muscle weakness Integumentary/Breast Denies: rash, pruritus, changing lesions, non-healing lesions or jaundice Neurological Denies: headache(s), numbness in extremities, weakness in extremities, seizure-like activity or involuntary movements Psychiatric Reports: anxiety and difficulty concentrating; Denies: mood swings, loss of interest, irritability, paranoia, suicidal ideation or homicidal ideation Endocrine Denies: polyuria, polydipsia, fatig (more content not included)... Normal [facility] [id number] 11-12-2024 [facility] [place]. COMMENT Normal . [facility] Comment on above: Order Comment: call results to [address] [phone] Result Comment: Test Ordered: [id number] AFP, Serum, Open Spina Bifida Results Report TG Reference Range: . Test Results: Note: TG *Screen Negative* Reference Range: . Gest. Age on Collection Date 17.3 weeks TG Reference Range: . Gestat. Age Based On Ultrasound TG Reference Range: . 17:2 on 11/09/2024 Recalculations are not recommended when gestational dating by LMP and ultrasound are within 10 days. M[age] ANISA 34[age]1 yr TG Reference Range: . Race Comment TG Reference Range: . Not provided. Weight 152 lbs TG Reference Range: . Insulin Dep Diabetes No TG Reference Range: . Multiple Gestation No TG Reference Range: . AFP Value 69.5 ng/mL TG Reference Range: . AFP MoM 1.78 TG Reference Range: . OSBR Risk 1 IN 1341 TG Reference Range: . Interpretation Comment TG Reference Range: . Interpretation: Screen Negative This result is screen negative for OSB. The AFP MoM calculated is based on the gestational age provided. MS-AFP can identify up to 80% of open neural tube defects. Closed neural tube defects and some open defects may not be detected by this test. This test does not screen for Down Syndrome or Trisomy 18. If screening for Down Syndrome or Trisomy 18 is desired, contact [facility] to discuss available options. The [employer] recommends amniocentesis be offered to women age 35 and older. Comment: Comment TG Reference Range: . Jacquelyn Mason, Ph.D., [facility] Director References: Available Upon Request. Multiples Of Median Cutoffs For AFP Elevations Branch 2.5 Black 2.8 IDD 2.0 Twins 4.5 Abbreviation Definitions IDD - Insulin Dep Diabetes OSBR - Open Spina Bifida Risk For further inquiries contact [facility] at [phone]. This test was developed and its performance characteristics determined by [facility]. It has not been cleared or approved by the Food and Drug Administration. Performed at: TG - [facility] [address] [facility], [place], [place] [id number] Air Sealing Technician: Fabiola Carson [facility], Phone: [phone] Performed at: CB - [facility] [address] [place], [place] [id number] Air Sealing Technician: Joseph Doe PhD, Phone: [phone] Performed By: #### L 167.8921 #### [facility] [address] [place], [address] Violin Restorer Office Visit Reporton 11-09-2024 Violin Restorer Office Visit Report [facility] [address], [address] [place] [address] OFFICE VISIT Date of Service: 11/09/24 MR#: [id number] Acct: [id number] Name: YESSI ANNE Rep #: [id number] 9 : 1990 Provider: Dr. Saritha avilez MD Age/Sex: 34/F [place] [facility] [place]: Signed Intake Vital Signs 10/20/24 15:15 11/09/24 08:49 Height 5 ft 1 in 5 ft 1 in Weight: 132 lb 4 oz BMI 25.0 BP 101/67 Intake Visit Reasons: 17 wk ob *HIGH RISK* Hospice Administrator Required: No Is patient in pain?: No Allergies doxycycline Adverse Reaction (Mild, Verified 11/09/24 08:54) Nausea Medications ???Medication ???Instructions ???Recorded ???Confirmed ???Type hydroxyzine HCl 10 mg tablet 10 mg PO TID PRN anxiety #90 tabs 07/06/24 11/09/24 Rx bupropion HCl 150 mg tablet,12 hr 150 mg PO BID #60 ea 07/22/24 Rx sustained-release ondansetron 4 mg disintegrating 4 mg PO Q6H PRN nausea and 5 11/09/24 Rx tablet vomiting #90 tabs bupropion HCl 150 mg tablet,12 hr 150 mg PO BID #60 ea 09/15/24 Rx sustained-release ondansetron 4 mg disintegrating 4 mg PO Q6H PRN nausea and 5 11/09/24 Rx tablet vomiting #10 tabs prochlorperazine maleate 10 mg 10 mg PO Q8H PRN nausea and 11/09/24 Rx tablet (Compazine) vomiting #90 tabs folic acid 1 mg tablet 5 mg PO QDAY 10/19/24 11/09/24 His tory Last Menstrual Period: 05/20/23 Zika: Zika virus screening: Negative : No PFSH PFSH Medical History Threatened Acute bronchitis, unspecified Concentration deficit History of depression PTSD (post-traumatic stress disorder) Wears glasses Wears contact lenses Depression Anxiety Thyroid disease Ectopic Anemia Asthma Non-smoker delivery delivered Decreased movements in third trimester Abnormal Pap smear of cervix Right foot sprain Right ankle sprain Frequent headaches Cyst of face Sprain of right hand Right wrist sprain SGA (small for gestational age), , affecting care of mother, antepartum Gestational diabetes Asthma Acute wheezy bronchitis Surgical History Previous section H/O unilateral salpingectomy ( 02/12/24) H/O laparoscopy History of tonsillectomy Family History Grandmother Breast cancer Lung cancer Father Hypertension Mother Hypertension Thyroid disorder Asthma Grandfather Colon cancer Lung cancer Mother Diabetes Sister Depression Social History household members: spouse and children housing: house current occupational status: employed 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 Date Name GA/Weeks Outcome Route Bth Weight Infant Gen Labor Lgth Anesthesia Del Locatn Provider FOB Unknown 2017 SAB Unknown 2022 Ectopic Unknown 2023 Ectopic 12/05/19 Gretel 39 live - full term 6lbs 1oz Female 12 hours epidural [facility] Dr. Erendira Velasco 02/25/22 Miguel Angel 37 live - full term Male [facility] Hilaria florentino Delivery Date: 12/05/19 Last Updated by: Valerie Escoto Gestational diabetes, small for gestational age Delivery Date: 02/25/22 Last Updated by: Jaclyn Freire [facility] STAT. baby transported to [place] with anemia and passed @ 1812 of pulmonary hemorrhage HPI 17 wk ob *HIGH RISK* Details: YESSI ANNE is a 34 year old who presents for routine OB visit. OB Visit ANISA Calculator Estimated Delivery Date Method Current WG Current Estimate 04/17/25 Ultrasound #1 17w 2d Expected Delivery Route/Plan TOLAC if able patient counseled regarding risks/benefits of trial of labor versus repeat . ACOG/uptodate education given to patient. [] % likelihood of success per calculator TOLAC consent form signed: [] Specific Issue/Plans Covid status: [] Flu vaccine: [] Tdap vaccine: [] Rhogam: [] LARC form signed: [] Problem list reviewed and updated with the most current plan of care details and appropriate orders placed. Relevant counseling for the gestational age provided. Continue routine care and fol (more content not included)... Normal [facility] Violin Restorer Office Visit Reporton 10-20-2024 Violin Restorer Office Visit Report [facility] [address] [place] [address], [address] [place] [address] OFFICE VISIT Date of Service: 10/20/24 MR#: [id number] Acct: [id number] Name: YESSI ANNE Rep #: [id number] : 1990 Provider: Dr. Saritha avilez MD Age/Sex: 34/F Location: [facility] [place] Status: Signed Intake Vital Signs 10/06/24 09:06 10/19/24 06:41 10/20/24 15:15 Height 5 ft 1 in 5 ft 1 in 5 ft 1 in Weight: 135 lb 134 lb 4 oz BMI 25.4 25.3 BP 96/69 87/61 L 98/66 Blood Pressure Location Rt brachial Position Sitting Respiration 16 Pulse 82 Pulse Source Monitor Intake Visit Reasons: 14 WK OB *HIGH RISK* Hospice Administrator Required: No Is patient in pain?: No Feel stressed/tense/nervous/anxi ous/difficulty sleeping: not at all Allergies doxycycline Adverse Reaction (Mild, Verified 10/20/24 15:15) Nausea Medications ???Medication ???Instructions ???Recorded ???Confirmed ???Type hydroxyzine HCl 10 mg tablet 10 mg PO TID PRN anxiety #90 tabs 07/06/24 10/20/24 Rx bupropion HCl 150 mg tablet,12 hr 150 mg PO BID #60 ea 07/22/2409/14 Rx sustained-release ondansetron 4 mg disintegrating 4 mg PO Q6H PRN nausea and 5 10/20/24 Rx tablet vomiting #90 tabs bupropion HCl 150 mg tablet,12 hr 150 mg PO BID #60 ea 09/15/2409/14 Rx sustained-release ondansetron 4 mg disintegrating 4 mg PO Q6H PRN nausea and 5 10/20/24 Rx tablet vomiting #10 tabs prochlorperazine maleate 10 mg 10 mg PO Q8H PRN nausea and 10/20/24 Rx tablet (Compazine) vomiting #90 tabs folic acid 1 mg tablet 5 mg PO QDAY 10/19/24 10/20/24 His tory Last Menstrual Period: 05/20/23 Zika: Zika virus screening: Negative : No PFSH PFSH Medical History Threatened Acute bronchitis, unspecified Concentration deficit History of depression PTSD (post-traumatic stress disorder) Wears glasses Wears contact lenses Depression Anxiety Thyroid disease Ectopic Anemia Asthma Non-smoker delivery delivered Decreased movements in third trimester Abnormal Pap smear of cervix Right foot sprain Right ankle sprain Frequent headaches Cyst of face Sprain of right hand Right wrist sprain SGA (small for gestational age), , affecting care of mother, antepartum Gestational diabetes Asthma Acute wheezy bronchitis Surgical History Previous section H/O unilateral salpingectomy ( 02/12/24) H/O laparoscopy History of tonsillectomy Family History Grandmother Breast cancer Lung cancer Father Hypertension Mother Hypertension Thyroid disorder Asthma Grandfather Colon cancer Lung cancer Mother Diabetes Sister Depression Social History household members: spouse and children housing: house current occupational status: employed 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 Date Name GA/Weeks Outcome Route Bth Weight Infant Gen Labor Lgth Anesthesia Del Locatn Provider FOB Unknown 2017 SAB Unknown 2022 Ectopic Unknown 2023 Ectopic 12/05/19 Gretel 39 live - full term 6lbs 1oz Female 12 hours epidural [facility] Dr. Erendira Velasco 02/25/22 Miguel Angel 37 live - full term Male [facility] Hilaria rcanthony Delivery Date: 12/05/19 Last Updated by: Valerie Escoto Gestational diabetes, small for gestational age Delivery Date: 02/25/22 Last Updated by: Jaclyn march [facility] STAT. baby transported to [place] with anemia and passed @ 1812 of pulmonary hemorrhage HPI 14 WK OB *HIGH RISK* Details: YESSI ANNE is a 34 year old who presents for routine OB visit. OB Visit ANISA Calculator Estimated Delivery Date Method Current Current Estimate 04/17/25 Ultrasound #1 14w 3d Expected Delivery Route/Plan TOLAC if able patient counseled regarding risks/benefits of trial of labor versus repeat . ACOG/uptodate education given to patient. [] % likelihood of success per calculator TOLAC consent form signed: [] Specific Issue/Plans Covid status: [] Flu vaccine: [] Tdap vaccine: [] Rh (more content not included)... Normal [facility] MR/Antoinette 10-19-2024 MR/ [address] [place] [address] OFFICE VISIT Date of Service: 10/19/24 MR#: [id number] Acct: [id number] Name: YESSI ANNE Rep #: [id number] : 1990 Provider: Dr. Albaro Harvey se, DO Age/Sex: 34/F Location: [facility] [place] Status: Signed Intake Vital Signs 09/15/24 07:05 10/19/24 06:41 Height 5 ft 1 in 5 ft 1 in BP 87/61 L Blood Pressure Location Rt brachial Position Sitting Respiration 16 Pulse 82 Pulse Source Monitor BP Intake Visit Reasons: 4-6wfu Accompanied by: Self Allergies doxycycline Adverse Reaction (Mild, Verified 10/19/24 07:04) Nausea Medications ???Medication ???Instructions ???Recorded ???Confirmed ???Type hydroxyzine HCl 10 mg tablet 10 mg PO TID PRN anxiety #90 tabs 07/06/24 10/06/24 Rx bupropion HCl 150 mg tablet,12 hr 150 mg PO BID #60 ea 07/22/24 Rx sustained-release ondansetron 4 mg disintegrating 4 mg PO Q6H PRN nausea and 5 10/06/24 Rx tablet vomiting #90 tabs bupropion HCl 150 mg tablet,12 hr 150 mg PO BID #60 ea 09/15/24 Rx sustained-release ondansetron 4 mg disintegrating 4 mg PO Q6H PRN nausea and 5 10/06/24 Rx tablet vomiting #10 tabs prochlorperazine maleate 10 mg 10 mg PO Q8H PRN nausea and 10/06/24 Rx tablet (Compazine) vomiting #90 tabs folic acid 1 mg tablet 5 mg PO QDAY 10/19/24 10/19/24 His tory [facility] Medical History Threatened Acute bronchitis, unspecified Concentration deficit History of depression PTSD (post-traumatic stress disorder) Wears glasses Wears contact lenses Depression Anxiety Thyroid disease Ectopic Anemia Asthma Non-smoker delivery delivered Decreased movements in third trimester Abnormal Pap smear of cervix Right foot sprain Right ankle sprain Frequent headaches Cyst of face Sprain of right hand Right wrist sprain SGA (small for gestational age), , affecting care of mother, antepartum Gestational diabetes Asthma Acute wheezy bronchitis Surgical History Previous section H/O unilateral salpingectomy ( 02/12/24) H/O laparoscopy History of tonsillectomy Family History Grandmother Breast cancer Lung cancer Father Hypertension Mother Hypertension Thyroid disorder Asthma Grandfather Colon cancer Lung cancer Mother Diabetes Sister Depression Social History household members: spouse and children housing: house current occupational status: employed current occupation: [employer] pets and animals: Yes Smoking Status: Never smoker alcohol intake: never substance use type: does not use what type of physical activity do you participate in: none do you feel safe at home: Yes additional social history: - Rod Female Reproductive History Menstrual Ab spontaneous: 1 Ectopics: 2 HPI History of Present Illness History provided by: patient HPI: Yessi Anne is a 34 year old female who presents today for follow up evaluation. Has been very nauseous with early and has been feeling sick. Has established with MFM at [facility]. Mood has been doing largely well. Focus has been largely well controlled. Weight has been stable. Sleep has been doing largely well. Work has been largely good. Denies SI/HI or AVH. Has been following with Nata about every 2-3 weeks. Feels like things are going largely well at home. Review of Systems Constitutional Denies: fever(s), change in weight or fatigue Eyes Denies: change in vision, blurry vision, eye discomfort or eye discharge Ears, Nose, Mouth, Throat Denies: dysphagia, hoarseness, ear or mastoid pain, ear discharge, change in hearing, tinnitus, nasal congestion or epistaxis Cardiovascular Denies: chest pain or dyspnea Respiratory Denies: dyspnea or wheezing Gastrointestinal Reports: nausea and vomiting; Denies: abdominal pain, hematemesis, heartburn, diarrhea, constipation, bloating, dysphagia, change in bowel habits or hematochezia Genitourinary Denies: urinary frequency, urinary urgency, urinary incontinence, hematuria, vaginal discharge or genital pruritis Musculoskeletal Reports: back pain and joint pain; Denies: extremity pain, joint swelling, muscle cramps or muscle weakness Integumentary/Breast Denies: rash, pruritus, changing lesions, non-healing lesions or jaundice Neurological Denies: headache(s), numbness in extremities, weakness in extremities, seizure-like activity or involuntary movements Psychiatric Reports: anxiety and difficulty concentrating; Norris (more content not included)... Normal [facility] CBC W/Diff, Automatedon 09-18 Absolute Lymph 1.98 X10 3/uL Normal 0.83-4.51 [facility] Comment on above: Performed By: #### L 3890.6102, L900.0098, L100.0100, L509.8002, L509.4006, BTS, L3890.6301, L3890.6006 #### [facility] [address] [place], [address] Absolute Neut 5.1 X10 3/uL Normal 2.0-7.7 [facility] Comment on above: Performed By: #### L 3890.6102, L900.0098, L100.0100, L509.8002, L509.4006, BTS, L3890.6301, L3890.6006 #### [facility] [address] [place], [address] Basophils/100 WBC (Bld) 0.4 % Normal 0-1 [facility] Comment on above: Performed By: #### L 3890.6102, L900.0098, L100.0100, L509.8002, L509.4006, BTS, L3890.6301, L3890.6006 #### [facility] [address] [place], [address] Eosinophils/100 WBC (Bld) 0.9 % Normal 0-5 [facility] Comment on above: Performed By: #### L 3890.6102, L900.0098, L100.0100, L509.8002, L509.4006, BTS, L3890.6301, L3890.6006 #### [facility] [address] [place], [address] Erythrocyte distribution width (RBC) [Ratio] 13.4 % Normal 11.6-14.6 [facility] Comment on above: Performed By: #### L 3890.6102, L900.0098, L100.0100, L509.8002, L509.4006, BTS, L3890.6301, L3890.6006 #### [facility] [address] [place], [address] Hematocrit (Bld) [Volume fraction] 34.9 % Low 37-47 [facility] Comment on above: Performed By: #### L 3890.6102, L900.0098, L100.0100, L509.8002, L509.4006, BTS, L3890.6301, L3890.6006 #### [facility] [address] [place], [address] Hemoglobin (Bld) [Mass/Vol] 11.8 g/dL Low 12.0-15.0 [facility] Comment on above: Performed By: #### L 3890.6102, L900.0098, L100.0100, L509.8002, L509.4006, BTS, L3890.6301, L3890.6006 #### [facility] [address] [place], [address] IG% 0.500 Normal 0.0-0.9 [facility] Comment on above: Result Comment: IG% - Immature Granulocytes (promyelocytes, myelocytes and metamyelocytes) > 1% indicates that a LEFT SHIFT is Present. Performed By: #### L 3890.6102, L900.0098, L100.0100, L509.8002, L509.4006, BTS, L3890.6301, L3890.6006 #### [facility] [address] [place], [address] Lymphocytes/100 WBC (Bld) 25.8 % Normal 19-41 [facility] Comment on above: Performed By: #### L 3890.6102, L900.0098, L100.0100, L509.8002, L509.4006, BTS, L3890.6301, L3890.6006 #### [facility] [address] [place], [address] MCH (RBC) [Entitic mass] 30.4 pg Normal 27.0-32.0 [facility] Comment on above: Performed By: #### L 3890.6102, L900.0098, L100.0100, L509.8002, L509.4006, BTS, L3890.6301, L3890.6006 #### [facility] [address] [place], [address] MCHC (RBC) [Mass/Vol] 33.8 g/dL Normal 32-36 [facility] Comment on above: Performed By: #### L 3890.6102, L900.0098, L100.0100, L509.8002, L509.4006, BTS, L3890.6301, L3890.6006 #### [facility] [address] [place], [address] MCV (RBC) [Entitic vol] 89.9 fL Normal 81-99 [facility] Comment on above: Performed By: #### L 3890.6102, L900.0098, L100.0100, L509.8002, L509.4006, BTS, L3890.6301, L3890.6006 #### [facility] [address] [place], [address] Monocytes/100 WBC (Bld) 5.7 % Normal 0-10 [facility] Comment on above: Performed By: #### L 3890.6102, L900.0098, L100.0100, L509.8002, L509.4006, BTS, L3890.6301, L3890.6006 #### [facility] [address] [place], [address] Neutrophils/100 WBC (Bld) 66.7 % Normal 47-70 [facility] Comment on above: Performed By: #### L 3890.6102, L900.0098, L100.0100, L509.8002, L509.4006, BTS, L3890.6301, L3890.6006 #### [facility] [address] [place], [address] Nucleated RBC (Bld) [#/Vol] 0 10*3/uL Normal 0-5 [facility] Comment on above: Performed By: #### L 3890.6102, L900.0098, L100.0100, L509.8002, L509.4006, BTS, L3890.6301, L3890.6006 #### [facility] [address] [place], [address] Platelet mean volume (Bld) [Entitic vol] 11.8 fL Normal 6.2-12.0 [facility] Comment on above: Performed By: #### L 3890.6102, L900.0098, L100.0100, L509.8002, L509.4006, BTS, L3890.6301, L3890.6006 #### [facility] [address] [place], [address] Platelets (Bld) [#/Vol] 301 10*3/uL Normal 150-450 [facility] Comment on above: Performed By: #### L 3890.6102, L900.0098, L100.0100, L509.8002, L509.4006, BTS, L3890.6301, L3890.6006 #### [facility] [address] [place], [address] RBC (Bld) [#/Vol] 3.88 10*6/uL Low 4.2-5.4 [facility] Comment on above: Performed By: #### L 3890.6102, L900.0098, L100.0100, L509.8002, L509.4006, BTS, L3890.6301, L3890.6006 #### [facility] [address] [place], [address] RDW SD 43.8 fl Normal 35.1-43.9 [facility] Comment on above: Performed By: #### L 3890.6102, L900.0098, L100.0100, L509.8002, L509.4006, BTS, L3890.6301, L3890.6006 #### [facility] [address] [place], [address] WBC (Bld) [#/Vol] 7.7 10*3/uL Normal 4.4-11.0 [facility] Comment on above: Performed By: #### L 3890.6102, L900.0098, L100.0100, L509.8002, L509.4006, BTS, L3890.6301, L3890.6006 #### [facility] [address] [place], [address] L3890.6006on 10-06-2024 HIV Non-Reactive Normal Nonreactive [facility] Comment on above: Result Comment: Non- Reactive Reactive Repeatedly reactive samples must be confirmed according to CDC recommended confirmatory algorithms. The subresults for either HIVAG or AHIV can be used as an aid in the selection of the confirmation algorithm for reactive samples. Send out specimens with Reactive results to [facility] for confirmation. Order the HIV antibody detection and differentiation: lc#[id number] Performed By: #### L 3890.6102, L900.0098, L100.0100, L509.8002, L509.4006, BTS, L3890.6301, L3890.6006 #### [facility] [address] [place], [address] L3890.6102on 10-06-2024 HEP B Surf Ag Non-Reactive Normal Nonreactive [facility] Comment on above: Result Comment: Reac tive: Presumptive evidence of HBV. Repeatedly reactive samples must be confirmed using a neutralization test ([employer] HBsAg Confirmatory Test) Non-Reactive: HBsAg not detected; does not exclude the possibility of exposure to HBV Performed By: #### L 3890.6102, L900.0098, L100.0100, L509.8002, L509.4006, BTS, L3890.6301, L3890.6006 ####[facility] [address] [facility] [place], [address] L3890.6301on 10-06-2024 Hepatitis C Ab Non-Reactive Normal Nonreactive [facility] Comment on above: Result Comment: Reac tive: Presumptive evidence of antibodies to HCV. Follow CDC recommendations for supplemental testing. Non-Reactive: Antibodies to HCV were not detected; does not exclude the possibility of exposure to HCV Reactive Results are presumptive evidence of antibodies to HCV. Follow CDC recommendations for supplemental testing. Order confirmation testing: HCV Quant by PCR testing - HCVPCR #[id number] Non Reactive: < 0.8 Equivocal: >/= 0.8 to < 1.0 Reactive: >/= 1.0 The CDC requires that a reactive/equivocal HCV antibody result be sent out for confirmation. HCV Quant by PCR testing. Performed By: #### L 3890.6102, L900.0098, L100.0100, L509.8002, L509.4006, BTS, L3890.6301, L3890.6006 ####[facility] [address] [place], [address] L509.4006on 10-06-2024 Rubella IgG REAC Normal Nonreactive [facility] Comment on above: Result Comment: Anti body Result: Interpretation Non-Reactive: Non-Immune Reactive: Immune The following results were obtained with the [employer] Rubella IgG assay. Results from assays of other manufacturers cannot be used interchangeably. Performed By: #### L 3890.6102, L900.0098, L100.0100, L509.8002, L509.4006, BTS, L3890.6301, L3890.6006 ####[facility] [address] [place], [address] L509.8002on 10-06-2024 Syphilis Abs Non-Reactive Normal Nonreactive [facility] Comment on above: Performed By: #### L 3890.6102, L900.0098, L100.0100, L509.8002, L509.4006, BTS, L3890.6301, L3890.6006 ####[facility] [address] [place], [address] NATERAon 10-06-2024 NATURA SEE SCANNED REPORT Normal [facility] Comment on above: Performed By: #### L 3890.6102, L900.0098, L100.0100, L509.8002, L509.4006, BTS, L3890.6301, L3890.6006 #### [facility] [address] [place], [address] Violin Restorer Office Visit Reporton 10-06-2024 Violin Restorer Office Visit Report [facility] [address], [address] [place] [address] OFFICE VISIT Date of Service: 10/06/24 MR#: [id number] Acct: [id number] Name: YESSI ANNE Rep #: [id number] : 1990 Provider: Dr. Saritha avilez MD Age/Sex: 34/F [place] [facility] [place]: Signed Intake Vital Signs 08/30/24 10:57 08/30/24 11:42 09/26/24 15:45 10/06/24 09:06 Height 5 ft 1 in 5 ft 1 in 5 ft 1 in 5 ft 1 in Weight: 135 lb BMI 25.4 BP 96/69 Intake Visit Reasons: 12 wk ob *high risk Hospice Administrator Required: No Is patient in pain?: No Allergies doxycycline Adverse Reaction (Mild, Verified 10/06/24 09:10) Nausea Medications ???Medication ???Instructions ???Recorded ???Confirmed ???Type hydroxyzine HCl 10 mg tablet 10 mg PO TID PRN anxiety #90 tabs 07/06/24 10/06/24 Rx bupropion HCl 150 mg tablet,12 hr 150 mg PO BID #60 ea 07/22/24 Rx sustained-release progesterone micronized 200 mg 200 mg vaginal QHS 30 days #30 cap s 07/28/24 10/06/24 Rx capsule ondansetron 4 mg disintegrating 4 mg PO Q6H PRN nausea and 5 10/06/24 Rx tablet vomiting #90 tabs bupropion HCl 150 mg tablet,12 hr 150 mg PO BID #60 ea 09/15/24 Rx sustained-release ondansetron 4 mg disintegrating 4 mg PO Q6H PRN nausea and 5 10/06/24 Rx tablet vomiting #10 tabs Last Menstrual Period: 05/20/23 Zika: Zika virus screening: Negative : No PFSH PFSH Medical History Threatened Acute bronchitis, unspecified Concentration deficit History of depression PTSD (post-traumatic stress disorder) Wears glasses Wears contact lenses Depression Anxiety Thyroid disease Ectopic Anemia Asthma Non-smoker delivery delivered Decreased movements in third trimester Abnormal Pap smear of cervix Right foot sprain Right ankle sprain Frequent headaches Cyst of face Sprain of right hand Right wrist sprain SGA (small for gestational age), , affecting care of mother, antepartum Gestational diabetes Asthma Acute wheezy bronchitis Surgical History Previous section H/O unilateral salpingectomy ( 02/12/24) H/O laparoscopy History of tonsillectomy Family History Grandmother Breast cancer Lung cancer Father Hypertension Mother Hypertension Thyroid disorder Asthma Grandfather Colon cancer Lung cancer Mother Diabetes Sister Depression Social History household members: spouse and children housing: house current occupational status: employed 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 Date Name GA/Weeks Outcome Route Bth Weight Infant Gen Labor Lgth Anesthesia Del Locatn Provider FOB Unknown 2017 SAB Unknown 2022 Ectopic Unknown 2023 Ectopic 12/05/19 Gretel 39 live - full term 6lbs 1oz Female 12 hours epidural [facility] Dr. Erendira Velasco 02/25/22 Miguel Angel 37 live - full term Male [facility] Hilaria florentino Delivery Date: 12/05/19 Last Updated by: Valerie Escoto Gestational diabetes, small for gestational age Delivery Date: 02/25/22 Last Updated by: Jaclyn Freire [facility] STAT. baby transported to [place] with anemia and passed @ 1812 of pulmonary hemorrhage HPI 12 wk ob *high risk Details: YESSI ANNE is a 34 year old who presents for routine OB visit. OB Visit ANISA Calculator Estimated Delivery Date Method Current Current Estimate 04/17/25 Ultrasound #1 12w 3d Expected Delivery Route/Plan TOLAC patient counseled regarding risks/benefits of trial of labor versus repeat . ACOG/uptodate education given to patient. [] % likelihood of success per calculator TOLAC consent form signed: [] Specific Issue/Plans Covid status: [] Flu vaccine: [] Tdap vaccine: [] Rhogam: [] LARC form signed: [] Problem list reviewed and updated with the most current plan of care details and appropriate orders placed. Relevant counseling for the gestational age provided. Continue routine care and follow up unless otherwise noted in visit notes/problem (more content not included)... Normal [facility] Type AND Screenon 10-06-2024 Ab SCREEN GEL Negative Normal [facility] Comment on above: Order Comment: PN Performed By: #### L 3890.6102, L900.0098, L100.0100, L509.8002, L509.4006, BTS, L3890.6301, L3890.6006 #### [facility] [place], [address] MISCELLANEOUS SENDOUTon 09-18 Miscellaneous Results Patient results scanned into [employer] Invalid Interpretation Code [facility] Comment on above: Order Comment: Name of Test:->NAIT What is the sendout facility name, if known?->[employer] Release to patient->Automatic (5 days after final result) Progress Noteon 09-27-2024 Anatomy Teacher Authentication Interface Message Text Maternal Medicine Consult Date of Service: 09/27/2024 Referring Provider: Saritha Salgado Primary Care Provider: [facility], MD Baldemar Reason for Consult: Dr. Saritha Salgado requests that Yessi be evaluated due to demise following 37 week delivery with pulmonary hemorrhage and possible abruption; defined fetomaternal hemorrhage. History of Presenting Problem: Yessi is a 34 y.o. at 11w1d gestation. She has a history of one SAB followed by two term pregnancies. The second was delivered at [facility] by section after continuing Category II tracing. The baby was critical and transferred to [facility] unit. It passed the same day with severe anemia that could not be corrected and a pulmonary hemorrhage. There was a documented spontaneous fetomaternal hemorrhage with a question (not proven by placental examination but likely) of abruption. (See complete preconceptual consultation by Dr. Maher from 05/08/22). Yessi was admitted to [facility] from her OB office. She had noted decreased FM with a concerning NST (spontaneous deceleration) in OB office. She was transferred to hospital and delivered by urgent C/S. The was transferred quickly after delivery to [facility] for severe anemia (subsequently noted severe fetomaternal hemorrhage with KB of 127.5 ml. All TORCH and acquired thrombophilia testing was negative. Fetomaternal hemorrhage has a much lower incidence than the chronic condition. An acute hemorrhage if large can cause hemodynamic collapse and . Slower blood loss from chronic FM can lead to anemia over time with possible development of hydrops and demise. The patient had a Kleihauer Betke following delivery was 127.5 ml and is within parameters of severe hemorrhage. Spontaneous massive FMH can occur at any time in or at . may be the presenting sign of a massive acute bleed. Some massive FMHs have no signs or symptoms. The recurrence rate is unknown as causation is often uncertain. The patient had no history of trauma and abruption could not be definitively diagnosed. The had a pulmonary hemorrhage which was likely secondary and not causative. She did have a COVID infection a few weeks prior to the loss. There is now significant data detailing an increased risk of severe illness, labor/, SGA, and stillbirth. Studies suggest that with moderate or severe COVID-19, the risk of the following complications may increase: Blood clotting disorders, FGR, GDM, PPH, SGA, Pre E, and in addition of stillbirth. Given pulmonary hemorrhage (likely a result not a cause) I discussed the possibility of NAIT. There was no intracranial hemorrhage (the sine shahriar non of NAIT) although other bleeds have been associated. I noted this was unlikely, but it was the only possibility not explored. I discussed that this event was quite possibly related to the COVID infection which should not be repetitive. OB History Para Term AB Living 6 2 2 0 3 1 SAB IAB Ectopic Multiple Live Births 1 0 2 0 2 # Outcome Date GA Lbr Jimmie/2nd Weight Sex Type Anes PTL Lv 6 Current 5 Ectopic 2023 Comments: left side removed 4 Ectopic 2022 Comments: methotrexate 3 Term 02/25/22 37w0d 3 kg M CS-LTranv Gen ND Comments: Stat LTCS, transported to [facility] NICU with anemia and passed of pulmonary hemorrhage Complications: Category II heart rate tracing during labor and delivery 2 Term 12/05/19 39w0d 2.75 kg F Vag-Spont EPI N MARK Comments: SGA,GDMA1 1 SAB 2018 Past Medical History: Diagnosis Date Anemia 2nd Anxiety wellbutrin and atarax as needed Depression Gestational diabetes mellitus (GDM) First - GDMA1 Thyroid disease enlarged thyroid; since 2021- gets ultrasounds yearly- last ultrasound showed no growth; no additional ultrasound needed until 2025. Biopsy was in 2021 and was negative. Uncomplicated asthma no meds;stable at this time. Past Surgical History: Procedure Laterality Date SECTION 2021 CYST REMOVAL 2010 on face LAPAROSCOPY After first ectopic in 2022 SALPINGECTOMY Left 2023 TONSILLECTOMY AND ADENOIDECTOMY Bilateral as a child Allergies[1] Social History Socioeconomic History Marital status: Spouse name: None Number of children: None Years of education: None Highest education level: None Tobacco Use Smoking status: Never Passive exposure: Never Smokeless tobacco: Never Substance and Sexual Activity Alcohol use: Never Drug use: Never Infections Live with someone with or exposed to TB No History of STI's None Rash or viral illness since last menstruation No 2nd STI GBS No 3rd STI Hx of Chicken Pox Yes Other infections Partner has hx of genital herpes No Genetics Age is > than 35y as of estimated date No Thalassemia No Ne (more content not included)... Normal [facility] Emergency Department Summary on 09-26-2024 Emergency Department Summary [facility] Medical Records Department [address] [place] [id number] Emergency Department Summary 09/26/24 MR#: [id number] Acct: [id number] Name: YESSI ANNE Rep #: [id number] : 1990 34 From: Damaso Whitfield MD PCP: Care Physician,No Primary Status:REG ER Location: ED HPI HPI - GI History of Present Illness Chief Complaint: Nausea/Vomiting Informant: patient Nausea/Vomiting/Emesis GI Symptom: Positive for Nausea and Vomiting Onset: Today and Hours Severity: Moderate Diarrhea/Melena/Hematochezi a GI Symptom: Negative for Diarrhea, Melena or Hematochezia Associated Symptoms Associated Symptoms: Negative for Dysuria, Frequency, Hematuria or Urgency Narrative Narrative: 34-year-old female currently 11 weeks has high risk and sees maternal- medicine. Currently under the care of Dr. Saritha Salgado of [employer]. AB 4 with 2 of those being ectopics. States she has had multiple pelvic ultrasounds for this showing a single live IUP. She been doing well. She has had intermittent bleeding she is going to follow-up with maternal-. That is not new or different today. She started having nausea vomiting around 6 AM this morning. No diarrhea. No fever. No dysuria. has similar symptoms at home he has been ill for the last 24 hours. She thinks she picked up a virus from him. Prior similar symptoms: Yes Recent Illness/Hospitalization: [facility] Medical History Threatened Acute bronchitis, unspecified Concentration deficit History of depression PTSD (post-traumatic stress disorder) Wears glasses Wears contact lenses Depression Anxiety Thyroid disease Ectopic Anemia Asthma Non-smoker delivery delivered Decreased movements in third trimester Abnormal Pap smear of cervix Right foot sprain Right ankle sprain Frequent headaches Cyst of face Sprain of right hand Right wrist sprain SGA (small for gestational age), , affecting care of mother, antepartum Gestational diabetes Asthma Acute wheezy bronchitis Home Medications ???Medication ???Instructions ???Recorded ???Last Taken ???Type hydroxyzine HCl 10 mg tablet 10 mg PO TID PRN anxiety #90 tabs 07/06/24 Unknown Rx bupropion HCl 150 mg tablet,12 hr 150 mg PO BID #60 ea 07/22/24 Unk nown Rx sustained-release progesterone micronized 200 mg 200 mg vaginal QHS 30 days #30 cap s 07/28/24 Unknown Rx capsule ondansetron 4 mg disintegrating 4 mg PO Q6H PRN nausea and 5 Unknown Rx tablet vomiting #90 tabs bupropion HCl 150 mg tablet,12 hr 150 mg PO BID #60 ea 09/15/24 Unk nown Rx sustained-release ondansetron 4 mg disintegrating 4 mg PO Q6H PRN nausea and 5 Unknown Rx tablet vomiting #10 tabs Allergy/AdvReac Type Severity Reaction Status Date / Time doxycycline AdvReac Mild Nausea Verified 09/26/24 15:47 Family History Grandmother Breast cancer Lung cancer Father Hypertension Mother Hypertension Thyroid disorder Asthma Grandfather Colon cancer Lung cancer Mother Diabetes Sister Depression Surgical History Previous section H/O unilateral salpingectomy ( 02/12/24) H/O laparoscopy History of tonsillectomy Social History household members: spouse and children housing: house current occupational status: employed 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 No abdominal pain other than cramping with vomiting. No dysuria. No fever. Constitutional Constitutional ED: Denies chills or fever(s) ENT ENT ED: Denies ear pain Cardiovascular Cardiovascular: Denies chest pain Respiratory/Chest Respiratory/Chest: Denies cough or dyspnea Gastrointestinal Gastrointestinal: Reports nausea and vomiting; Denies abdominal pain, constipation, diarrhea or melena Genitourinary Genitourinary ED: Denies dysuria or hematuria Musculoskeletal Musculoskeletal: Denies arthralgias, back pain, myalgias or neck pain Integumentary Denies abscess or Abrasions Neurologic Neurologic: Denies headache(s) or paresthesias Psychiatric Psychiatric: Denies anxiety or depression Endocrine Endocrinology: Denies polydipsia or polyphagia Hematologic/Lymphatic Hematologic/Lymphatic: Denies easy bleeding, easy bruising or lymphadenopathy (more content not included)... Normal [facility] M100.678on 09-26-2024 M100.678 Pending SARS-CoV-2 (COVID 19) Negative INFLUENZA A Negative INFLUENZA B Negative RSV PCR Negative [facility] Comment on above: Performed By: #### M 100.678 ####[facility] [id number] [place], [place], [id number] MR/BMS.BPon 09-15-2024 MR/BMSJonahBP [address], [address] [place] [address] OFFICE VISIT Date of Service: 09/15/24 MR#: [id number] Acct: [id number] Name: YESSI ANNE Rep #: [id number] : 1990 Provider: Dr. Albaro Harvey se, DO Age/Sex: 34/F Location: BMS.BP Status: Signed Intake Vital Signs 07/06/24 07:07 09/08/24 13:58 09/15/24 06:57 09/15/24 07:05 Height 5 ft 1 in 5 ft 1 in 5 ft 1 in 5 ft 1 in BP 118/65 Blood Pressure Location Lt brachial Position Sitting Respiration 16 Pulse 76 Pulse Source Monitor BP Intake Visit Reasons: follow up Allergies No Known Allergies Allergy (Verified 09/15/24 07:02) Medications ???Medication ???Instructions ???Recorded ???Confirmed ???Type hydroxyzine HCl 10 mg tablet 10 mg PO TID PRN anxiety #90 tabs 07/06/24 09/15/24 Rx bupropion HCl 150 mg tablet,12 hr 150 mg PO BID #60 ea 07/22/24 Rx sustained-release progesterone micronized 200 mg 200 mg vaginal QHS 30 days #30 cap s 07/28/24 09/15/24 Rx capsule ondansetron 4 mg disintegrating 4 mg PO Q6H PRN nausea and 5 09/15/24 Rx tablet vomiting #90 tabs PFSH Medical History Threatened Acute bronchitis, unspecified Concentration deficit History of depression PTSD (post-traumatic stress disorder) Wears glasses Wears contact lenses Depression Anxiety Thyroid disease Ectopic Anemia Asthma Non-smoker delivery delivered Decreased movements in third trimester Abnormal Pap smear of cervix Right foot sprain Right ankle sprain Frequent headaches Cyst of face Sprain of right hand Right wrist sprain SGA (small for gestational age), , affecting care of mother, antepartum Gestational diabetes Asthma Acute wheezy bronchitis Surgical History Previous section H/O unilateral salpingectomy ( 02/12/24) H/O laparoscopy History of tonsillectomy Family History Grandmother Breast cancer Lung cancer Father Hypertension Mother Hypertension Thyroid disorder Asthma Grandfather Colon cancer Lung cancer Mother Diabetes Sister Depression Social History household members: spouse and children housing: house current occupational status: employed current occupation: [employer] pets and animals: Yes Smoking Status: Never smoker alcohol intake: never substance use type: does not use what type of physical activity do you participate in: none do you feel safe at home: Yes additional social history: - Rod Female Reproductive History Menstrual Ab spontaneous: 1 Ectopics: 2 HPI History of Present Illness History provided by: patient HPI: Yessi Anne is a 34 year old female who presents today for follow up evaluation. Patient has become since her last appointment. Did have some significant stress regarding holiday season. Has not been taking hydroxyzine very frequently. Feels like buproprion is helping in both energy and focus. Has been feeling like she has emotions. Has lost about 20 lbs since starting medication. Sleep has been doing largely well. Getting about 9 hours of sleep. Has been having some significant nausea. Was referred to MFM at [facility]. Has gotten back in to seeing Nata every other week at [facility]. Denies SI/HI or AVH. Review of Systems Constitutional Denies: fever(s), change in weight or fatigue Eyes Denies: change in vision, blurry vision, eye discomfort or eye discharge Ears, Nose, Mouth, Throat Denies: dysphagia, hoarseness, ear or mastoid pain, ear discharge, change in hearing, tinnitus, nasal congestion or epistaxis Cardiovascular Denies: chest pain or dyspnea Respiratory Denies: dyspnea or wheezing Gastrointestinal Denies: abdominal pain, nausea, vomiting, hematemesis, heartburn, diarrhea, constipation, bloating, dysphagia, change in bowel habits or hematochezia Genitourinary Denies: urinary frequency, urinary urgency, urinary incontinence, hematuria, vaginal discharge or genital pruritis Musculoskeletal Reports: back pain and joint pain; Denies: extremity pain, joint swelling, muscle cramps or muscle weakness Integumentary/Breast Denies: rash, pruritus, changing lesions, non-healing lesions or jaundice Neurological Denies: headache(s), numbness in extremities, weakness in extremities, seizure-like activity or involuntary movements Psychiatric Reports: anxiety and difficulty concentrating; Denies: mood swings, loss of interest, irritability, paranoia, suicidal ideation or homicidal ideation Endocrine Denies: polyuria, polydipsia, fatigue, cold intol (more content not included)... Normal [facility] Violin Restorer Office Visit Reporton 02-26-2025 Violin Restorer Office Visit Report [facility] [address], [address] [place] [address] OFFICE VISIT Date of Service: 09/15/24 MR#: [id number] Acct: [id number] Name: YESSI ANNE Rep #: [id number] : 1990 Provider: Dr. Saritha avilez MD Age/Sex: 34/F [place] [facility] [place]: Signed Intake Vital Signs 08/30/24 10:57 09/15/24 07:05 09/15/24 09:52 Height 5 ft 1 in 5 ft 1 in 5 ft 1 in Weight: 138 lb 2 oz BMI 26.1 BP 111/76 Intake Visit Reasons: 2 wk FU after rescan, 9wk2d Hospice Administrator Required: No Is patient in pain?: No Allergies No Known Allergies Allergy (Verified 09/15/24 09:57) Medications ???Medication ???Instructions ???Recorded ???Confirmed ???Type hydroxyzine HCl 10 mg tablet 10 mg PO TID PRN anxiety #90 tabs 07/06/24 09/15/24 Rx bupropion HCl 150 mg tablet,12 hr 150 mg PO BID #60 ea 07/22/24 Rx sustained-release progesterone micronized 200 mg 200 mg vaginal QHS 30 days #30 cap s 07/28/24 09/15/24 Rx capsule ondansetron 4 mg disintegrating 4 mg PO Q6H PRN nausea and 5 09/15/24 Rx tablet vomiting #90 tabs bupropion HCl 150 mg tablet,12 hr 150 mg PO BID #60 ea 09/15/24 Rx sustained-release Last Menstrual Period: 05/20/23 Zika: Zika virus screening: Negative : No Have you fallen in the past year?: No PFSH PFSH Medical History Threatened Acute bronchitis, unspecified Concentration deficit History of depression PTSD (post-traumatic stress disorder) Wears glasses Wears contact lenses Depression Anxiety Thyroid disease Ectopic Anemia Asthma Non-smoker delivery delivered Decreased movements in third trimester Abnormal Pap smear of cervix Right foot sprain Right ankle sprain Frequent headaches Cyst of face Sprain of right hand Right wrist sprain SGA (small for gestational age), , affecting care of mother, antepartum Gestational diabetes Asthma Acute wheezy bronchitis Surgical History Previous section H/O unilateral salpingectomy ( 02/12/24) H/O laparoscopy History of tonsillectomy Family History Grandmother Breast cancer Lung cancer Father Hypertension Mother Hypertension Thyroid disorder Asthma Grandfather Colon cancer Lung cancer Mother Diabetes Sister Depression Social History household members: spouse and children housing: house current occupational status: employed current occupation: [employer] pets and animals: Yes Smoking Status: Never smoker alcohol intake: never substance use type: does not use what type of physical activity do you participate in: none do you feel safe at home: Yes additional social history: - Rod History 6 Elective abortions Hx Para 1 Spontaneous abortions 1 Hx # Term Pregnancies 2 Ectopic pregnancies 2 Hx # Pregnancies Multiple births # of living children 1 Past Pregnancies Del. Date Name GA/Weeks Outcome Route Bth Weight Gen Labor Lgth Anesthesia Del Locatn Provider FOB Unknown 2017 SAB Unknown 2022 Ectopic Unknown 2023 Ectopic 12/05/19 Gretel 39 live - full term 6lbs 1oz Female 12 hours epidural [facility] Dr. Erendira Velasco 02/25/22 Miguel Angel 37 live - full term Male [facility] Hilaria rcanthony Delivery Date: 12/05/19 Last Updated by: Valerie Escoto Gestational diabetes, small for gestational age Delivery Date: 02/25/22 Last Updated by: Jaclyn Freire decl [facility] STAT. baby transported to [place] with anemia and passed @ 1812 of pulmonary hemorrhage HPI 2 wk FU after rescan, 9wk2d Details: YESSI ANNE is a 34 year old who presents for routine OB visit. OB Visit ANISA Calculator Estimated Delivery Date Method Current WG Current Estimate 04/17/25 Ultrasound #1 9w 3d Expected Delivery Route/Plan TOLAC patient counseled regarding risks/benefits of trial of labor versus repeat . ACOG/uptodate education given to patient. [] % likelihood of success per calculator TOLAC consent form signed: [] Specific Issue/Plans Covid status: [] Flu vaccine: [] Tdap vaccine: [] Rhogam: [] LARC form signed: [] Problem list reviewed and updated with the most current plan of care details and appropriate orders placed. Relevant counseling for the gestational age provided. Continue routine care and follow up unless otherwise noted in visit notes/problem list details Initial Weight: Not Recorded Date -???-???-???-???-???-???-?? ?-?? (more content not included)... Normal [facility] Violin Restorer Office Visit Reporton 09-08-2024 Violin Restorer Office Visit Report [facility] [address], [address] [place] [address] OFFICE VISIT Date of Service: 09/08/24 MR#: [id number] Acct: [id number] Name: YESSI ANNE Rep #: [id number] : 1990 Provider: MALKA Bangura ams Age/Sex: 34/F [place] [facility] [place] Status: Signed Intake Vital Signs 09/08/24 08:03 09/08/24 13:58 Height 5 ft 1 in 5 ft 1 in Weight: 138 lb BMI 26.0 BP 110/77 Intake Visit Reasons: 8 weeks spotting after vomiting Chief Complaint: 8 weeks spotting Is patient in pain?: No Allergies No Known Allergies Allergy (Verified 09/08/24 13:55) Medications ???Medication ???Instructions ???Recorded ???Confirmed ???Type hydroxyzine HCl 10 mg tablet 10 mg PO TID PRN anxiety #90 tabs 07/06/24 09/08/24 Rx naproxen 500 mg tablet 500 mg PO DAILY PRN pain #60 tabs 07/15/24 09/08/24 Rx bupropion HCl 150 mg tablet,12 hr 150 mg PO BID #60 ea 07/22/24 Rx sustained-release progesterone micronized 200 mg 200 mg vaginal QHS 30 days #30 cap s 07/28/24 09/08/24 Rx capsule progesterone micronized 200 mg 200 mg vaginal QHS 30 days #30 cap s 07/28/24 09/08/24 Rx capsule ondansetron 4 mg disintegrating 4 mg PO Q6H PRN nausea and 5 09/08/24 Rx tablet vomiting #90 tabs Last Menstrual Period: 05/20/23 : No PFSH PFSH Medical History Threatened Acute bronchitis, unspecified Concentration deficit History of depression PTSD (post-traumatic stress disorder) Wears glasses Wears contact lenses Depression Anxiety Thyroid disease Ectopic Anemia Asthma Non-smoker delivery delivered Decreased movements in third trimester Abnormal Pap smear of cervix Right foot sprain Right ankle sprain Frequent headaches Cyst of face Sprain of right hand Right wrist sprain SGA (small for gestational age), , affecting care of mother, antepartum Gestational diabetes Asthma Acute wheezy bronchitis Surgical History Previous section H/O unilateral salpingectomy ( 02/12/24) H/O laparoscopy History of tonsillectomy Family History Grandmother Breast cancer Lung cancer Father Hypertension Mother Hypertension Thyroid disorder Asthma Grandfather Colon cancer Lung cancer Mother Diabetes Sister Depression Social History household members: spouse and children housing: house current occupational status: employed current occupation: [employer] pets and animals: Yes Smoking Status: Never smoker alcohol intake: never substance use type: does not use what type of physical activity do you participate in: none do you feel safe at home: Yes additional social history: - Rod History 6 Elective abortions Hx Para 1 Spontaneous abortions 1 Hx # Term Pregnancies 2 Ectopic pregnancies 2 Hx # Pregnancies Multiple births # of living children 1 Past Pregnancies Del. Date Name GA/Weeks Outcome Route Bth Weight Gen Labor Lgth Anesthesia Del Locatn Provider FOB Unknown 2017 SAB Unknown 2022 Ectopic Unknown 2023 Ectopic 12/05/19 Gretel 39 live - full term 6lbs 1oz Female 12 hours epidural [facility] Dr. Erendira Velasco 02/25/22 Miguel Angel 37 live - full term Male [facility] Hilaria florentino Delivery Date: 12/05/19 Last Updated by: Valerie Escoto Gestational diabetes, small for gestational age Delivery Date: 02/25/22 [facility] [place] with anemia and passed @ 1812 of pulmonary hemorrhage HPI 8 weeks spotting after vomiting Details: YESSI ANNE is a 34 year old who presents for routine OB visit. OB Visit ANISA Calculator Estimated Delivery Date Method Current WG Current Estimate 04/17/25 Ultrasound #1 8w 3d Expected Delivery Route/Plan TOLAC patient counseled regarding risks/benefits of trial of labor versus repeat . ACOG/uptodate education given to patient. [] % likelihood of success per calculator TOLAC consent form signed: [] Specific Issue/Plans Covid status: [] Flu vaccine: [] Tdap vaccine: [] Rhogam: [] LARC form signed: [] Problem list reviewed and updated with the most current plan of care details and appropriate orders placed. Relevant counseling for the gestational age provided. Continue routine care and follow up unless otherwise noted in visit notes/problem list details Initial Weight: Not Recorded Date -???-???-???-???-???-???-?? ?-???-???-???-???-???- MERRICK Horton (more content not included)... Normal [facility] Violin Restorer Office Visit Reporton 08-30-2024 Violin Restorer Office Visit Report [facility] [address], [address] [place] [address] OFFICE VISIT Date of Service: 08/30/24 MR#: [id number] Acct: [id number] Name: YESSI ANNE Rep #: [id number] : 1990 Provider: Dr. Saritha avilez MD Age/Sex: 34/F Location: [facility] Status: Signed Intake Vital Signs 08/23/24 11:54 08/30/24 10:57 Height 5 ft 1 in 5 ft 1 in Weight: 138 lb 2 oz 138 lb BMI 26.1 26.0 BP 102/72 100/70 Intake Visit Reasons: Rescan per Hospice Administrator Required: No Allergies No Known Allergies Allergy (Verified 08/30/24 11:01) Medications ???Medication ???Instructions ???Recorded ???Confirmed ???Type hydroxyzine HCl 10 mg tablet 10 mg PO TID PRN anxiety #90 tabs 07/06/24 08/30/24 Rx naproxen 500 mg tablet 500 mg PO DAILY PRN pain #60 tabs 07/15/24 08/30/24 Rx bupropion HCl 150 mg tablet,12 hr 150 mg PO BID #60 ea 07/22/2405/14 Rx sustained-release progesterone micronized 200 mg 200 mg vaginal QHS 30 days #30 cap s 07/28/24 08/30/24 Rx capsule progesterone micronized 200 mg 200 mg vaginal QHS 30 days #30 cap s 07/28/24 08/30/24 Rx capsule Last Menstrual Period: 05/20/23 Zika: Zika virus screening: Negative Have you fallen in the past year?: No PFSH PFSH Medical History Threatened Acute bronchitis, unspecified Concentration deficit History of depression PTSD (post-traumatic stress disorder) Wears glasses Wears contact lenses Depression Anxiety Thyroid disease Ectopic Anemia Asthma Non-smoker delivery delivered Decreased movements in third trimester Abnormal Pap smear of cervix Right foot sprain Right ankle sprain Frequent headaches Cyst of face Sprain of right hand Right wrist sprain SGA (small for gestational age), , affecting care of mother, antepartum Gestational diabetes Asthma Acute wheezy bronchitis Surgical History Previous section H/O unilateral salpingectomy ( 02/12/24) H/O laparoscopy History of tonsillectomy Family History Grandmother Breast cancer Lung cancer Father Hypertension Mother Hypertension Thyroid disorder Asthma Grandfather Colon cancer Lung cancer Mother Diabetes Sister Depression Social History household members: spouse and children housing: house current occupational status: employed current occupation: [employer] pets and animals: Yes Smoking Status: Never smoker alcohol intake: never substance use type: does not use what type of physical activity do you participate in: none do you feel safe at home: Yes additional social history: - Rod History 6 Elective abortions Hx Para 1 Spontaneous abortions 1 Hx # Term Pregnancies 2 Ectopic pregnancies 2 Hx # Pregnancies Multiple births # of living children 1 Past Pregnancies Del. Date Name GA/Weeks Outcome Route Bth Weight Gen Labor Lgth Anesthesia Del Locatn Provider FOB Unknown 2017 SAB Unknown 2022 Ectopic Unknown 2023 Ectopic 12/05/19 Gretel 39 live - full term 6lbs 1oz Female 12 hours epidural [facility] Dr. Erendria Velasco 02/25/22 Miguel Angel 37 live - full term Male [facility] Hilaria mishel Delivery Date: 12/05/19 Last Updated by: Valerie Escoto Gestational diabetes, small for gestational age Delivery Date: 02/25/22 Last Updated by: Jaclyn Freire [facility] STAT. baby transported to [place] with anemia and passed @ 181 of pulmonary hemorrhage HPI Rescan per Details: YESSI ANNE is a 34 year old who presents for New OB visit. OB Visit ANISA Calculator Estimated Delivery Date Method Current Current Estimate 04/17/25 Ultrasound #1 7w 1d Expected Delivery Route/Plan TOLAC patient counseled regarding risks/benefits of trial of labor versus repeat . ACOG/uptodate education given to patient. [] % likelihood of success per calculator TOLAC consent form signed: [] Specific Issue/Plans Covid status: [] Flu vaccine: [] Tdap vaccine: [] Rhogam: [] LARC form signed: [] Problem list reviewed and updated with the most current plan of care details and appropriate orders placed. Relevant counseling for the gestational age provided. Continue routine care and follow up unless otherwise noted in visit notes/problem list details Initial Weight: Not Recorded Date -???-???-???-???-???-???-?? ?-???-???-???-???-???- EGA Weight BP Urine Prot -???-???-???-???-???-???-?? ?-???-???-???-???-???- Glucose FHR FuHt (more content not included)... Normal [facility] Chlamydia/GC MAE aptimaon 02 -06-2025 CHLAMY,NUC ACID Negative Normal Negative [facility] Comment on above: Performed By: #### L 700.8000 #### [facility] [address] [place], [place], [address] GC BY NUC ACID Negative Normal Negative [facility] Comment on above: Result Comment: Perf ormed at: =G - [facility] [address] [id number] Air Sealing Technician: Екатерина Masterson MD, Phone: [phone] Performed By: #### L 700.8000 #### [facility] [address] [place], [place], [address] Urine Cultureon 08-25-2024 [facility] Mixed Gram Pos Gram Neg Org Paint Bank Count 11,000-25,000 MIXC Mixed contaminants. Submit a new specimen if indicated. Normal [facility] Comment on above: Performed By: #### L 500.4050, L100.0100 #### [facility] [address] [place], [address] Violin Restorer Office Visit Reporton 08-23-2024 Violin Restorer Office Visit Report [facility] [address], [address] [place] [address] OFFICE VISIT Date of Service: 08/23/24 MR#: [id number] Acct: [id number] Name: YESSI ANNE Rep #: [id number] : 1990 Provider: Dr. Saritha avilez MD Age/Sex: 34/F [place] [facility] [place] Status: Signed Intake Vital Signs 07/06/24 07:07 08/23/24 11:54 Height 5 ft 1 in 5 ft 1 in Weight: 138 lb 2 oz BMI 26.1 BP 102/72 Intake Visit Reasons: okay to schedule per Hospice Administrator Required: No Allergies No Known Allergies Allergy (Verified 08/23/24 12:05) Last Menstrual Period: 05/20/23 Zika: Zika virus screening: Negative : No Have you fallen in the past year?: No PFSH PFSH Medical History (Updated 08/23/24 @ 21:[address] Saritha Salgado MD) Threatened Acute bronchitis, unspecified Concentration deficit History of depression PTSD (post-traumatic stress disorder) Wears glasses Wears contact lenses Depression Anxiety Thyroid disease Ectopic Anemia Asthma Non-smoker delivery delivered Decreased movements in third trimester Abnormal Pap smear of cervix Right foot sprain Right ankle sprain Frequent headaches Cyst of face Sprain of right hand Right wrist sprain SGA (small for gestational age), , affecting care of mother, antepartum Gestational diabetes Asthma Acute wheezy bronchitis Surgical History (Updated 08/23/24 @ 21:[address] 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 Date Name GA/Weeks Outcome Route Bth Weight Infant Gen Labor Lgth Anesthesia Del Locatn Provider FOB Unknown 2017 SAB Unknown 2022 Ectopic Unknown 2023 Ectopic 12/05/19 Gretel 39 live - full term 6lbs 1oz Female 12 hours epidural [facility] Dr. Erendira Velasco 02/25/22 Miguel Angel 37 live - full term Male [facility] Hilaria florentino Delivery Date: 12/05/19 Last Updated by: Valerie Escoto Gestational diabetes, small for gestational age Delivery Date: 02/25/22 Last Updated by: Jaclyn [facility] STAT. baby transported to [place] with anemia and passed @ 1812 of pulmonary hemorrhage HPI okay to schedule per Details: YESSI ANNE is a 34 year old who presents for New OB visit. OB Visit ANISA Calculator Estimated Delivery Date Method Current WG Current Estimate 04/17/25 Ultrasound #1 6w 1d Initial Weight: Not Recorded Date -???-???-???-???-???-???-?? ?-???-???-???-???-???- EGA Weight BP Urine Prot -???-???-???-???-???-???-?? ?-???-???-???-???-???- Glucose FHR FuHt Pres Dilation -???-???-???-???-???-???-?? ?-???-???-???-???-???- Effaced St Visit Note 08/23/24 -???-???-???-???-???-???-?? ?-???-???-???-???-???- 6w 1d 138 lb 2 oz 102/72 -???-???-???-???-???-???-?? ?-???-???-???-???-???- -???-???-???-???-???-???-?? ?-???-???-???-???-???- SM- GS 18mm and ys seen possible 1 mm early pole Menstrual History Last Menstrual Period: 05/20/23 ACOG First Trimester First Trimester: Discussed ROS Const Reports system reviewed and no additional complaints, except as documented, Reports fatigue and Denies fever(s) Eyes Reports system reviewed and no additional complaints, except as documented ENT Reports system reviewed and no additional complaints, except as documented Card Denies chest pain and Denies dyspnea Resp Reports system reviewed and no additional complaints, except as documented, Denies cough and Denies dyspnea GI Denies abdominal pain and Reports nausea Reports system reviewed and no additional complaints, except as documented Musc Reports system reviewed and no additional complaints, except as documented Skin/Breast Reports system r (more content not included)... Normal [facility] CBC W/Diff, Automatedon - Absolute Lymph 2.06 X10 3/uL Normal 0.83-4.51 [facility] Comment on above: Performed By: #### L 500.4050, L100.0100 #### [facility] [address] [place], [address] Absolute Neut 4.2 X10 3/uL Normal 2.0-7.7 [facility] Comment on above: Performed By: #### L 500.4050, L100.0100 #### [facility] [address] [place], [address] Basophils/100 WBC (Bld) 0.6 % Normal 0-1 [facility] Comment on above: Performed By: #### L 500.4050, L100.0100 #### [facility] [address] [place], [address] Eosinophils/100 WBC (Bld) 3.2 % Normal 0-5 [facility] Comment on above: Performed By: #### L 500.4050, L100.0100 #### [facility] [address] [place], [address] Erythrocyte distribution width (RBC) [Ratio] 13.2 % Normal 11.6-14.6 [facility] Comment on above: Performed By: #### L 500.4050, L100.0100 #### [facility] [address] [place], [address] Hematocrit (Bld) [Volume fraction] 36.3 % Low 37-47 [facility] Comment on above: Performed By: #### L 500.4050, L100.0100 #### [facility] [address] [place], [address] Hemoglobin (Bld) [Mass/Vol] 12.4 g/dL Normal 12.0-15.0 [facility] Comment on above: Performed By: #### L 500.4050, L100.0100 #### [facility] [address] [place], [address] IG% 0.300 Normal 0.0-0.9 [facility] Comment on above: Result Comment: IG% - Immature Granulocytes (promyelocytes, myelocytes and metamyelocytes) > 1% indicates that a LEFT SHIFT is Present. Performed By: #### L 500.4050, L100.0100 #### [facility] [address] [place], [address] Lymphocytes/100 WBC (Bld) 29.0 % Normal 19-41 [facility] Comment on above: Performed By: #### L 500.4050, L100.0100 #### [facility] [address] [place], [address] MCH (RBC) [Entitic mass] 30.5 pg Normal 27.0-32.0 [facility] Comment on above: Performed By: #### L 500.4050, L100.0100 #### [facility] [address] [place], [address] MCHC (RBC) [Mass/Vol] 34.2 g/dL Normal 32-36 [facility] Comment on above: Performed By: #### L 500.4050, L100.0100 #### [facility] [address] [place], [address] MCV (RBC) [Entitic vol] 89.2 fL Normal 81-99 [facility] Comment on above: Performed By: #### L 500.4050, L100.0100 #### [facility] [address] [place], [address] Monocytes/100 WBC (Bld) 7.3 % Normal 0-10 [facility] Comment on above: Performed By: #### L 500.4050, L100.0100 #### [facility] [address] [place], [address] Neutrophils/100 WBC (Bld) 59.6 % Normal 47-70 [facility] Comment on above: Performed By: #### L 500.4050, L100.0100 #### [facility] [address] [place], [address] Nucleated RBC (Bld) [#/Vol] 0 10*3/uL Normal 0-5 [facility] Comment on above: Performed By: #### L 500.4050, L100.0100 #### [facility] [address] [place], [address] Platelet mean volume (Bld) [Entitic vol] 11.4 fL Normal 6.2-12.0 [facility] Comment on above: Performed By: #### L 500.4050, L100.0100 #### [facility] [address] [place], [address] Platelets (Bld) [#/Vol] 268 10*3/uL Normal 150-450 [facility] Comment on above: Performed By: #### L 500.4050, L100.0100 #### [facility] [address] [place], [address] RBC (Bld) [#/Vol] 4.07 10*6/uL Low 4.2-5.4 [facility] Comment on above: Performed By: #### L 500.4050, L100.0100 #### [facility] [address] [place], [address] RDW SD 42.6 fl Normal 35.1-43.9 [facility] Comment on above: Performed By: #### L 500.4050, L100.0100 #### [facility] [address] [place], [address] WBC (Bld) [#/Vol] 7.1 10*3/uL Normal 4.4-11.0 [facility] Comment on above: Performed By: #### L 500.4050, L100.0100 #### [facility] [address] [place], [address] Comprehensive Metabolic Prof ilon 08-17-2024 Albumin [Mass/Vol] 3.8 g/dL Normal 3.2-5.0 [facility] Comment on above: Performed By: #### L 500.4050, L100.0100 #### [facility] [address] [place], [address] Albumin/Globulin [Mass ratio] 0.9 {ratio} Normal 0.9-2.4 [facility] Comment on above: Performed By: #### L 500.4050, L100.0100 #### [facility] [address] [place], [address] ALK P 80 U/L Normal 45-117 [facility] Comment on above: Performed By: #### L 500.4050, L100.0100 #### [facility] [address] [place], [address] ALT [Catalytic activity/Vol] 17 U/L Normal 13-56 [facility] Comment on above: Performed By: #### L 500.4050, L100.0100 #### [facility] [address] [place], [address] AST [Catalytic activity/Vol] 7 U/L Low 15-37 [facility] Comment on above: Performed By: #### L 500.4050, L100.0100 #### [facility] [address] [place], [address] Bilirubin [Mass/Vol] 0.50 mg/dL Normal 0.20-1.00 [facility] Comment on above: Result Comment: For patients on eltrombopag therapy, use of Dimension Goodwin TBIL is not recommended. Performed By: #### L 500.4050, L100.0100 #### [facility] [address] [place], [address] BUN/CRE 10.2 RATIO Normal 10-20 [facility] Comment on above: Performed By: #### L 500.4050, L100.0100 #### [facility] [address] [place], [address] CA,Total 9.2 mg/dL Normal 8.5-10.1 [facility] Comment on above: Performed By: #### L 500.4050, L100.0100 #### [facility] [address] [place], [address] Chloride [Moles/Vol] 105 mmol/L Normal 98-107 [facility] Comment on above: Performed By: #### L 500.4050, L100.0100 #### [facility] [address] [place], [address] CO2 [Moles/Vol] 26.0 mmol/L Normal 21.0-32.0 [facility] Comment on above: Performed By: #### L 500.4050, L100.0100 #### [facility] [address] [place], [address] Creatinine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 is a 34 year old who presents for postop visit. Patient is recovering well with no significant side effects. Incisions are doing well. Patient has had some mild bleeding. She denies any fevers. Emotionally coping is much as possible. History 4 Elective abortions Hx Para 1 Spontaneous abortions Hx # Term Pregnancies 2 Ectopic pregnancies Hx # Pregnancies Multiple births # of living children 1 Past Pregnancies Del. Date Name GA/Weeks Outcome Route Bth Weight Infant Gen Labor Lgth Anesthesia Del Locatn Provider FOB 12/05/19 Gretel 39 live - full term 6lbs 1oz Female 12 hours epidural [facility] Dr. Erendira Velasco 02/25/22 Miguel Angel 37 live - full term Male [facility] Hilaria rcanthony Delivery Date: 12/05/19 Last Updated by: Valerie Escoto Gestational diabetes, small for gestational age Delivery Date: 02/25/22 Last Updated by: Jaclyn Freire decl LTCS STAT. baby transported to [place] with anemia and passed @ 1812 of pulmonary hemorrhage ROS Const Constitutional: Reports system reviewed and no additional complaints, except as documented GI GI: Denies abdominal pain, cramping, nausea or vomiting : Denies pelvic pain, urinary frequency, urinary incontinence, urinary urgency, vaginal discharge, vaginal dryness or vaginal odor Exam Const General: cooperative, healthy appearing, comfortable and no acute distress GI Inspection: normal to inspection Palpation: soft and nontender Other: Incisions: C/D/I Coding Level of Care Code No Charge Diagnoses Ectopic O00.90 Assessment and Plan Assessment and Plan (1) Ectopic : Status: Acute Comment: s/p left tube removal, plan HSG 2-3 months postop Plan Problem list updated and treatment plans were reviewed with the patient and relevant educational handouts given. See problem list details for specific plan information. Plan Details Goals Barriers: Goals Decrease spasm Decrease inflammation Decrease pain Barriers Caring for a toddler 02/25/24 1757 Date Saritha Rojas Signature: Date (if applicable) CC: Normal [facility] Basic Metabolic Profile (BMP )on 02-12-2024 BUN/CRE 10.9 RATIO Normal 10-20 [facility] Comment on above: Performed By: #### L 700.8000 #### [facility] [address] [place], [address] CA,Total 9.0 mg/dL Normal 8.5-10.1 [facility] Comment on above: Performed By: #### L 700.8000 #### [facility] [address] [place], [address] Chloride [Moles/Vol] 109 mmol/L High 98-107 [facility] Comment on above: Performed By: #### L 700.8000 #### [facility] [address] [place], [address] CO2 [Moles/Vol] 26.0 mmol/L Normal 21.0-32.0 [facility] Comment on above: Performed By: #### L 700.8000 #### [facility] [address] [place], [address] Creatinine [Mass/Vol] 0.82 mg/dL Normal 0.55-1.02 [facility] Comment on above: Result Comment: The validity of the calculated GFR GFRAA in patients over 70 years has not been determined. Clinical correlation is essential. Performed By: #### L 700.8000 #### [facility] [address] [place], [address] ECRCL 93.11 ml/min Normal [facility] Comment on above: Performed By: #### L 700.8000 #### [facility] [address] [place], [address] EST GFR - AA 103 mL/min Normal >60 [facility] Comment on above: Result Comment: Afri can Macanese GFR Calc Performed By: #### L 700.8000 #### [facility] [address] [place], [address] GAP 6 Normal 5-15 [facility] Comment on above: Performed By: #### L 700.8000 #### [facility] [address] [place], [address] GFR/1.73 sq M.predicted among non-blacks MDRD (S/P/Bld) [Vol rate/Area] 85 mL/min/{1.73_m2} Normal >60 [facility] Comment on above: Result Comment: Non- GFR Calc Performed By: #### L 700.8000 #### [facility] [address] [place], [address] Glucose [Mass/Vol] 101 mg/dL Normal 74-106 [facility] Comment on above: Result Comment: Fast ing Glucose result from 100 to 125 mg/dL suggests IMPAIRED HOMEOSTASIS per A.D.A. criteria. Performed By: #### L 700.8000 #### [facility] [address] [place], [address] Potassium [Moles/Vol] 3.3 mmol/L Low 3.5-5.1 [facility] Comment on above: Performed By: #### L 700.8000 #### [facility] [address] [place], [address] Sodium [Moles/Vol] 141 mmol/L Normal 136-145 [facility] Comment on above: Performed By: #### L 700.8000 #### [facility] [address] [place], [address] Urea nitrogen [Mass/Vol] 9 mg/dL Normal 7-18 [facility] Comment on above: Performed By: #### L 700.8000 #### [facility] [address] [place], [address] CBC W/Diff, Automatedon 07-2 5-2023 Absolute Lymph 3.35 X10 3/uL Normal 0.83-4.51 [facility] Comment on above: Performed By: #### L 700.8000 #### [facility] [address] [place], [address] Absolute Neut 5.5 X10 3/uL Normal 2.0-7.7 [facility] Comment on above: Performed By: #### L 700.8000 #### [facility] [address] [place], [address] Basophils/100 WBC (Bld) 0.5 % Normal 0-1 [facility] Comment on above: Performed By: #### L 700.8000 #### [facility] [address] [place], [address] Eosinophils/100 WBC (Bld) 2.2 % Normal 0-5 [facility] Comment on above: Performed By: #### L 700.8000 #### [facility] [address] [place], [address] Erythrocyte distribution width (RBC) [Ratio] 12.8 % Normal 11.6-14.6 [facility] Comment on above: Performed By: #### L 700.8000 #### [facility] [address] [place], [address] Hematocrit (Bld) [Volume fraction] 36.0 % Low 37-47 [facility] Comment on above: Performed By: #### L 700.8000 #### [facility] [address] [place], [address] Hemoglobin (Bld) [Mass/Vol] 11.9 g/dL Low 12.0-15.0 [facility] Comment on above: Performed By: #### L 700.8000 #### [facility] [address] [place], [address] IG% 0.300 Normal 0.0-0.9 [facility] Comment on above: Result Comment: IG% - Immature Granulocytes (promyelocytes, myelocytes and metamyelocytes) > 1% indicates that a LEFT SHIFT is Present. Performed By: #### L 700.8000 #### [facility] [address] [facility] [place], [address] Lymphocytes/100 WBC (Bld) 34.2 % Normal 19-41 [facility] Comment on above: Performed By: #### L 700.8000 #### [facility] [address] [place], [address] MCH (RBC) [Entitic mass] 29.2 pg Normal 27.0-32.0 [facility] Comment on above: Performed By: #### L 700.8000 #### [facility] [address] [place], [address] MCHC (RBC) [Mass/Vol] 33.1 g/dL Normal 32-36 [facility] Comment on above: Performed By: #### L 700.8000 #### [facility] [address] [place], [address] MCV (RBC) [Entitic vol] 88.5 fL Normal 81-99 [facility] Comment on above: Performed By: #### L 700.8000 #### [facility] [address] [place], [address] Monocytes/100 WBC (Bld) 6.7 % Normal 0-10 [facility] Comment on above: Performed By: #### L 700.8000 #### [facility] [address] [place], [address] Neutrophils/100 WBC (Bld) 56.1 % Normal 47-70 [facility] Comment on above: Performed By: #### L 700.8000 #### [facility] [address] [place], [address] Nucleated RBC (Bld) [#/Vol] 0 10*3/uL Normal 0-5 [facility] Comment on above: Performed By: #### L 700.8000 #### [facility] [address] [place], [address] Platelet mean volume (Bld) [Entitic vol] 11.7 fL Normal 6.2-12.0 [facility] Comment on above: Performed By: #### L 700.8000 #### [facility] [address] [place], [address] Platelets (Bld) [#/Vol] 286 10*3/uL Normal 150-450 [facility] Comment on above: Performed By: #### L 700.8000 #### [facility] [address] [place], [address] RBC (Bld) [#/Vol] 4.07 10*6/uL Low 4.2-5.4 [facility] Comment on above: Performed By: #### L 700.8000 #### [facility] [address] [place], [address] RDW SD 41.6 fl Normal 35.1-43.9 [facility] Comment on above: Performed By: #### L 700.8000 #### [facility] [address] [place], [place], [address] WBC (Bld) [#/Vol] 9.8 10*3/uL Normal 4.4-11.0 [facility] Comment on above: Performed By: #### L 700.8000 #### [facility] [address] [place], [place], [address] Discharge Instructionon 01-19 Discharge Instruction [facility] Medical Records Department [address] [place] [address] Instructions for Home/Discharge Instructions 02/12/24 0556 MR#: [id number] Acct: [id number] Name: YESSI ANNE Rep #: [id number] : 1990 33 From: Saritha Salgado MD PCP: Care Physician,No Primary Status:REG [facility] Discharge Instructions Diet Discharge Diet: No restrictions Activity Discharge Activity: Return to Normal Activity, May Not Drive (for 2 weeks or while taking narcotic pain meds.), May Shower and May Take a Tub Bath (in 7 days) May resume sexual activity in: 1 week Weight Bearing Status: Full weight bearing Dressing / Incision Call your doctor if your incision/area has: Continuous Slow Oozing, Sudden Increased Bleeding, Increased Pain/ Swelling, Increased Redness and Foul Smelling Discharge Call your doctor if you observe: Fever of 101 or Higher, Using more than 1 pad per hour, Shortness of breath, Chest pain and Uncontrolled pain Suture Line Care: Avoid Pulling/Pushing and Avoid Pinching/Bending Remove Dressing in: 1 week (if present) Cleanse incision/area with: Soap Water and Keep Dressing Clean Dry Follow Up Care When: Call to make an appointment with your doctor for a fu/incision check in 1-2 weeks. Test Results: Test results from this visit will be discussed in further detail at your follow-up appointment, if applicable. Discharge Plan Admission Attending Provider: Saritha Salgado Primary Care Provider: Care Physician,No Primary Instructions Print Language: Hungarian Discharge Orders/Prescriptions Prescriptions: New oxycodone-acetaminophen [Percocet] 5-325 mg tablet 1 tab PO Q6H PRN (Reason: pain) 7 Days Qty: 20 0RF ibuprofen 600 mg tablet 600 mg PO Q6H PRN PRN (Reason: Pain) Qty: 30 0RF No Action norgestimate-ethinyl estradiol [Sprintec (28)] 0.25-35 mg-mcg tablet 1 tab PO QDAY Qty: 28 6RF Referrals / Follow Up: Care Physician,No Primary [Primary Care Provider] - Disposition Disposition (needs filled in before D/C Order can be placed): Home, Self Care 02/12/24 0659 Saritha Salgado MD CC: No Primary Care Physician Signed Normal [facility] Emergency Department Summary on 02-12-2024 Emergency Department Summary [facility] Medical Records Department [address] [place] [address] Emergency Department Summary 02/12/24 MR#: [id number] Acct: [id number] Name: YESSI ANNE Rep #: [id number] : 1990 33 From: Analia Cole MD PCP: Care Physician,No Primary Status:[facility] Location: [address] History of Present Illness Chief Complaint: Abd Pain Informant: patient Onset/Context/Timing Onset: Today Narrative Narrative: Patient presents secondary to lower abdominal pain that woke her from sleep. Patient is approximately 4 weeks . Her quantitative hCG has been slowly rising, but not as expected. She does have a history of ectopic . She has not yet had an ultrasound to confirm intrauterine . [facility] Medical History Wears glasses Wears contact lenses Depression Anxiety Thyroid disease Ectopic Anemia Asthma Non-smoker delivery delivered Decreased movements in third trimester Abnormal Pap smear of cervix Right foot sprain Right ankle sprain Frequent headaches Cyst of face Sprain of right hand Right wrist sprain SGA (small for gestational age), , affecting care of mother, antepartum Gestational diabetes 39 weeks gestation of Asthma Acute wheezy bronchitis Home Medications ???Medication ???Instructions ???Recorded ???Last Taken ???Type norgestimate 0.25 mg-ethinyl 1 tab PO QDAY #28 tabs 10/21/23 Unknown Rx estradiol 35 mcg tablet (Sprintec (28)) Allergy/AdvReac Type Severity Reaction Status Date / Time No Known Allergies Allergy Verified 02/12/24 01:56 Family History Grandmother Breast cancer Lung cancer Father Hypertension Mother Hypertension Thyroid disorder Asthma Grandfather Colon cancer Lung cancer Mother Diabetes Sister Depression Surgical History H/O laparoscopy History of tonsillectomy Social History household members: spouse and children housing: house current occupational status: employed current occupation: [employer] pets and animals: Yes Smoking Status: Never smoker alcohol intake: never substance use type: does not use what type of physical activity do you participate in: none do you feel safe at home: Yes additional social history: - Rod ROS ROS ED Constitutional Constitutional ED: Denies chills or fever(s) Eyes Eyes: Denies discharge from eye(s) ENT ENT ED: Denies discharge from eye(s), rhinorrhea or sore throat Cardiovascular Cardiovascular: Denies chest pain Respiratory/Chest Respiratory/Chest: Denies cough or dyspnea Gastrointestinal Gastrointestinal: Reports abdominal pain and nausea; Denies diarrhea or vomiting Genitourinary Genitourinary ED: Denies difficulty urinating or dysuria Musculoskeletal Musculoskeletal: Denies back pain or extremity pain Integumentary Denies Abrasions or rash Neurologic Neurologic: Denies headache(s) or weakness Psychiatric Psychiatric: Reports anxiety; Denies depression Allergic/Immunologic Allergic/Immunologic ED: Denies lip swelling or urticaria EXAM Physical Exam Const Vital Signs: 02/12/24 01:55 02/12/24 03:55 Temperature 98.6 F Temperature Source Oral Pulse Rate 83 70 Respiratory Rate 16 16 Blood Pressure 117/64 102/62 Blood Pressure Mean 81 75 Pulse Ox 95 97 Oxygen Delivery Method Room Air Room Air Positive well nourished and well developed General Appearance ED: well developed HEENT Reports moist mucous membranes Eyes EOMs intact bilaterally Chest Wall inspection of chest normal and palpation of chest normal Resp normal respiratory effort and clear to auscultation bilaterally Cardio regular rate and regular rhythm GI GI Narrative: Abdomen soft with moderate lower abdominal tenderness. Extremity normal to inspection Neuro oriented x3 and no sensory deficits noted Motor Exam: strength 5/5 throughout Psych Mood Affect: anxious Skin no rashes or lesions noted MDM MDM MDM Narrative Medical decision making narrative: IV line initiated. Patient given morphine and Zofran along with IV fluids. Labwork obtained to evaluate for leukocytosis, anemia, and electrolyte derangement. Pelvic ultrasound will be obtained to evaluate for potential ectopic . History Record Review Discussion w/independent historian: Patient and Significant other Additional record(s) reviewed:: Prior outpatient record and Prior labs Lab Data Attestation: I reviewed the patient's lab results. Labs: Laboratory Results - last 24 hr 0 (more content not included)... [facility] MR/POSTOP.[facility] 02-12-2024 MR/POSTOP.[facility] Medical Records Department [address] [place] [address] Anesthesia Postop Eval I 02/12/24720 MR#: [id number] Acct: [id number] Name: YESSI ANNE Rep #: [id number] : 1990 33 From: Alberto Christy MD PCP: Care Physician,No Primary Status:REG [facility] Y Race: C Location: [place] [address] Anesthesia: Postop Eval I Current Vital Signs Temperature: 98 F Pulse Rate: 95 Blood Pressure: 99/42 Respiratory Rate: 16 Pulse Ox: 100 Oxygen Delivery Method: Room Air Assessment Airway patent: Yes Spontaneous unlabored respirations: Yes Mental status: Awake and Calm nausea: No Vomiting: No Anesthesia Complication: No Fluid Hydration Crystalloid volume administer (ml): 850 Total IV fluid infused: 850 Progress Note Anesthesia document: Postop Eval 1 completed: Yes 02/12/24723 Date Alberto Christy MD Cosigner Signature: Date CC: Signed [facility] MR/POAKTCHU0cr 02-12-2024 [facility] Medical Records Department [address] [place] [address] Anesthesia Postop Eval II 02/12/24749 MR#: [id number] Acct: [id number] Name: YESSI ANNE Rep #: [id number] : 1990 33 From: Rogelio Booth MD PCP: Care Physician,No Primary Status:REG SD Y Race: C Location: [place] [address] Anesthesia Postop Eval I Sum Postop Eval Completion status Anesthesia document: Postop Eval 1 completed: Yes Anesthesia Postop Eval I Summary Anesthesia Postop Eval I Summary: Anesthesia Postop Eval I: Assessment Summary Airway patent Yes 02/12/24 07:24 Spontaneous unlabored Yes 02/12/24 07:24 respirations Mental status Awake,Calm 02/12/24 07:24 nausea No 02/12/24 07:24 Vomiting No 02/12/24 07:24 Anesthesia Postop Eval I: Fluid Summary Crystalloid volume administer 850 02/12/24 07:24 (ml) Colloids volume administered ( ml) Blood Product volume administered (ml) Total IV fluid infused 850 02/12/24 07:24 Anesthesia Postop Eval I: Summary Notes Anesthesia Complication No 02/12/24 07:24 Anesthesia Complication Comment: Post-operative progress note Anesthesia: Postop Eval II Evaluation Mental status: Awake Pain Level: 0 nausea: No Vomiting: No 02/12/24749 Rogelio Booth MD Cosigner Signature: Date CC: Signed [facility] Operative Reporton 4 Operative Report [facility] Medical Records Department [address] [place] [address] Operative Report 02/12/24 0555 MR#: [id number] Acct: [id number] Name: YESSI ANNE Rep #: [id number] : 1990 33 From: Saritha Salgado MD PCP: Care Physician,No Primary Status:REG [facility] Location: [facility] [id number] Problems Associated Problem List Diagnoses (1) Ectopic : Report of Operation Date of Procedure: 02/12/24 Pre-Operative Diagnosis: see problem list Post-Operative Diagnosis: same Surgery/Procedure Performed:: laparoscopic left salpingectomy Description of Surgical Findings:: left ruptured ectopic Surgeon: Saritha Salgado distribution spec: Mckenna Jorge Type of Anesthesia: General and Local Specimen's removed: tube and ectopic Drains: none Estimated Blood Loss (mL): 50 Fluids Replaced: crystalloid Description of Procedure: Patient was taken in the operating room and was placed under general anesthesia was prepped and draped in normal sterile fashion in the dorsal lithotomy position. Bladder was drained of clear urine and SCDs were on preoperatively. Uterus was sounded and a uterine manipulator was placed after dilating. Attention was then paid to the abdominal portion of the procedure and the umbilicus was elevated with towel clamps and injected with Marcaine and after a 5 mm incision was made and the Veress needle was entered into the abdomen confirmed to be intra-abdominal with a low opening pressure of less than 5 mmHg. Abdomen was insufflated with CO2 gas and a 5 mm optical trocar was placed under direct visualization. A 5 mm port was placed in the right and left lower quadrant ports under direct visualization. Uterus was well visualized and there is noted to be a left ruptured ectopic coming from the left fallopian tube. Blood and clot were seen in the cul-de-sac. left tube was nodular in appearance, similar to the right tube which was known to be nonfunctional. decision for tube removal was made. left sigmoid colon adhesions taken down without complication. left Fallopian tube was elevated and mesosalpinx transected and abnormal portion of the fallopian tube and were removed without complication and then placed in a bag and removed through the 5 mm port site. Liver and upper abdomen were visualized notably within normal limits and no other gross abnormalities were seen in the abdomen. All instruments removed from the abdomen after gas was desufflated. All port sites were closed with 3-0 Monocryl Steri's and op sites were applied. All instruments removed from the vagina and patient was awoken and taken recovery in stable condition. Grafts/Implants Used: none Procedure Start Time: 06:36 Procedure Stop Time: 06:59 Complications none Admit VTE Documentation VTE Present on Admission: No VTE Mechan Device Prophylaxis: SCD's Procedures Urinary/Genital 52xxx-59xxx: 03178 Treat ectopic lapro w/ salpingectomy 02/12/24 0659 Cosigner Signature (if applicable): CC: Dr. Saritha Salgado MD; No Primary Care Physician Signed [facility] Surgery Specimen Level [place] 02-12-2024 Surgery Specimen Level IV Patient Age/Sex Location Account Attending Physician YESSI ANNE 33/ [facility] [id number] Dr. Saritha Salgado MD Specimen: [id number] Received: 02/12/24 Status: DIA Lopez Num: [id number] Spec Type: ECTOPIC Subm Dr: Dr. Saritha Salgado MD HEADER OPERATION: Laparoscopic, removal ectopic , left salpingectomy PRE-OP DIAGNOSIS: Ectopic TISSUE SUBMITTED: Left ruptured ectopic MICROSCOPIC DIAGNOSIS Left ruptured ectopic , salpingectomy: Fallopian tube with decidua, immature chorionic villi and blood clots (ectopic ). DARYA: 02/13/2024 MICROSCOPIC DESCRIPTION Slides are reviewed. GROSS DESCRIPTION Received in fixative is one container labeled with the patient's name and designated Left ruptured ectopic. The specimen consists of a fallopian tube measuring 6.0cm in length and up to 1.5cm in diameter. Fimbrial end is identified. Fimbrial end also shows multiple blood clots. Detached fragments of blood clots are also noted measuring in aggregate 3.0 x 1.5 x 0.4cm. Sections reveal lumen is filled with multiple blood clots. tissue is not identified. The entire specimen is submitted in four cassettes. Yuly 02/12/2024 TC:5 CPT:60676 Patient Age/Sex Location Account Attending Physician OMIDYESSI CORRALES 33/F [facility] [id number] Dr. Saritha Salgado MD Signed (signature on file) Dr. Jorgito Monsalve MD 02/13/24 1115 [facility] Comment on above: Performed By: #### P SUIV ####[facility] [address] [facility] [place], [place], [address] Transvaginal w/Preg USon Transvaginal w/Preg US [facility] Imaging Services [address] [place], [place] [address] Transvaginal w/Preg US MR#: [id number] Acct: [id number] Name: OMID,YESSIKIMBERLY CORRALES Rep #: [id number] : 1990 F 33 From: Karthik Maradiaga MD PCP: Care Physician,No Primary Status: REG ER Study: Transvaginal w/Preg US Date of Exam: 02/12/24 Exam# [id number] Ordering Dr: Analia Cole MD ADDENDUM by Dr. Karthik Maradiaga MD on 02/12/24 at 0430 [id number] INDICATION: pain-hcg 423 h/o previous ectopics EXAMINATION: Ultrasound US OB Transvaginal TECHNIQUE: Transvaginal pelvic ultrasound was performed. Grayscale and color flow Doppler evaluation of the adnexa. COMPARISON: January 14, 2023. LMP: [01/14/2024 correlating with 4 weeks 1 day gestation and estimated delivery date October 20, 2024. HCG 423 FINDINGS: UTERUS: Anteverted uterus 8.4 x 4.8 x 6.2 cm with normal myometrium.. Endometrium measures 8 mm and is homogeneous. No intrauterine gestational sac is seen. RIGHT OVARY: 1.9 x 3.3 x 2.3 cm with internal color flow. Complex 1.7 cm physiologic cyst.. LEFT OVARY: 1.8 x 2.3 x 1.6 cm with normal parenchymal and multiple small follicles. Internal color flow seen.. . FREE FLUID: Small volume anechoic free fluid in the cul-de-sac. Adjacent to left ovary there is a 2.1 x 2.7 x 1.8 cm hypoechoic mass peripheral color vascular flow.. 02/12/24 0430 Date cc: Dr. Analia Cole MD; No Primary Care Physician * Signed ADDENDUM by Dr. Karthik Maradiaga MD on 02/12/24 at 0430 US/Transvaginal w/Preg US IMPRESSION: No visible intrauterine gestational sac with small volume cul-de-sac free fluid and questionable 2.7 cm left adnexal soft tissue mass. Cannot exclude ectopic . Collapsed bowel could potentially have a similar appearance. Lack of visible gestational sac is nonspecific at patient clinical gestational age and hCG. OB consultation is recommended. Correlate with hCG trend. Normal right ovary with complex luteal cyst. Normal left ovary. N.B. : The above Results were Read Back by Karthik Maradiaga MD to Analia Cole MD, and understanding confirmed on 02/12/2024 04:29:44 (ET). Electronically Signed: Karthik Maradiaga MD at 4:30 EDT , 02/12/24 0437 Date cc: Dr. Analia Cole MD; No Primary Care Physician * Signed [id number] INDICATION: pain-hcg 423 h/o previous ectopics EXAMINATION: Ultrasound US OB Transvaginal TECHNIQUE: Transvaginal pelvic ultrasound was performed. Grayscale and color flow Doppler evaluation of the adnexa. COMPARISON: January 14, 2023. LMP: [01/14/2024 correlating with 4 weeks 1 day gestation and estimated delivery date October 20, 2024. HCG 423 FINDINGS: UTERUS: Anteverted uterus 8.4 x 4.8 x 6.2 cm with normal myometrium.. Endometrium measures 8 mm and is homogeneous. No intrauterine gestational sac is seen. RIGHT OVARY: 1.9 x 3.3 x 2.3 cm with internal color flow. Complex 1.7 cm physiologic cyst.. LEFT OVARY: 1.8 x 2.3 x 1.6 cm with normal parenchymal and multiple small follicles. Internal color flow seen.. . FREE FLUID: Small volume anechoic free fluid in the cul-de-sac. Adjacent to left ovary there is a 2.1 x 2.7 x 1.8 cm hypoechoic mass peripheral color vascular flow.. US/Transvaginal w/Preg US IMPRESSION: No visible intrauterine gestational sac with small volume cul-de-sac free fluid and questionable 2.7 cm left adnexal soft tissue mass. Cannot exclude ectopic . Collapsed bowel could potentially have a similar appearance. Lack of visible gestational sac is nonspecific at patient clinical gestational age and hCG. OB consultation is recommended. Correlate with hCG trend. Normal right ovary with complex luteal cyst. Normal left ovary. N.B. : The above Results were Read Back by Karthik Maradiaga MD to Analia Cole MD, and understanding confirmed on 02/12/2024 04:29:44 (ET). Electronically Signed: Karthik Maradiaga MD at 4:30 EDT , CC: Dr. Analia Cole MD; No Primary Care Physician [employer]: Signed [facility] hCG Titer Quant., Serumon HCG QUANT. 423 mIU/mL High 1-3 [facility] Comment on above: Result Comment: hCG levels with Gestational Age Gestational Age hCG mIU/mL (IU/L) 0.2 - 1 week 5 - 50 1-2 weeks 50 - 500 2-3 weeks 100 - 5000 3-4 weeks 500 - 33054 4-5 weeks 1000 - 75275 5-6 weeks 97262 - 100,000 6-8 weeks 91994 - 200,000 2-3 months 53384 - 100,000 Performed By: #### L 700.8000 #### [facility] [address] [place], [place], [address] hCG Titer Quant., Serumon HCG QUANT. 469 mIU/mL High 1-3 [facility] Comment on above: Result Comment: hCG levels with Gestational Age Gestational Age hCG mIU/mL (IU/L) 0.2 - 1 week 5 - 50 1-2 weeks 50 - 500 2-3 weeks 100 - 5000 3-4 weeks 500 - 03023 4-5 weeks 1000 - 60895 5-6 weeks 91603 - 100,000 6-8 weeks 80647 - 200,000 2-3 months 02446 - 100,000 Performed By: #### L 700.8000 #### [facility] [address] [place], [place], [address] hCG Titer Quant., Serumon HCG QUANT. 346 mIU/mL High 1-3 [facility] Comment on above: Result Comment: hCG levels with Gestational Age Gestational Age hCG mIU/mL (IU/L) 0.2 - 1 week 5 - 50 1-2 weeks 50 - 500 2-3 weeks 100 - 5000 3-4 weeks 500 - 87917 4-5 weeks 1000 - 86526 5-6 weeks 08715 - 100,000 6-8 weeks 50635 - 200,000 2-3 months 93106 - 100,000 Performed By: #### L 700.8000 ####[facility] [address] [place], [place], [address] hCG Titer Quant., Serumon HCG QUANT. 273 mIU/mL [facility] [address] [place] [address] Comment on above: Order Comment: call results to [address] [phone] Result Comment: hCG levels with Gestational Age Gestational Age hCG mIU/mL (IU/L) 0.2 - 1 week 5 - 50 1-2 weeks 50 - 500 2-3 weeks 100 - 5000 3-4 weeks 500 - 42663 4-5 weeks 1000 - 28181 5-6 weeks 97949 - 100,000 6-8 weeks 38610 - 200,000 2-3 months 09205 - 100,000 Performed By: #### L 700.8000 #### [facility] [address] [place], [place], [address] Laboratory - Chemistry and C hemistry - challengeOrdered By: Analia Kimbrough on 06-17-2023 HCG ( test) Ql (U) Negative [facility] Comment on above: Very dilute urine sp ecimens, as indicated by a low specificgravity, may not contain outbound telemarketing representative levels of hCG. If is still suspected, a first morning urinespecimen should be collected 48 hours later and tested. Basophil percentageOrdered B y: Analia Kimbrough on 06-13-2023 WBC (Bld) [#/Vol] 8.0 10*3/uL 4.4-11.0 [facility] Blood erythrocytes count (nu mber/volume)Ordered By: Analia Kimbrough on 06-13-2023 RBC (Bld) [#/Vol] 4.16 10*6/uL 4.2-5.4 [facility] Blood hemoglobin measurement (mass/volume)Ordered By: Analia Kimbrough on 06-13-2023 Hemoglobin (Bld) [Mass/Vol] 12.5 g/dL 12.0-15.0 [facility] Blood platelet mean volumeOr dered By: Analia Kimbrough on 06-13-2023 Platelet mean volume (Bld) [Entitic vol] 11.7 fL 6.2-12.0 [facility] Determination of erythrocyte mean corpuscular volume (MCV)Ordered By: Analia Kimbrough on 06-13-2023 MCV (RBC) [Entitic vol] 90.9 fL 81-99 [facility] Hematocrit Auto (Bld) [Volum e fraction]Ordered By: Analia Kimbrough on 06-13-2023 Hematocrit (Bld) [Volume fraction] 37.8 % 37-47 [facility] Laboratory - Hematology and Cell countsOrdered By: Analia Kimbrough on 06-13-2023 Erythrocyte distribution width (RBC) [Entitic vol] 40.6 fL 35.1-43.9 [facility] Erythrocyte distribution width (RBC) [Ratio] 12.4 % 11.6-14.6 [facility] MCH (RBC) [Entitic mass] 30.0 pg 27.0-32.0 [facility] MCHC Auto (RBC) [Mass/Vol]Or dered By: Analia Kimbrough on 06-13-2023 MCHC (RBC) [Mass/Vol] 33.1 g/dL 32-36 [facility] Platelets bldOrdered By: Gena Kimbrough on 06-13-2023 Platelets (Bld) [#/Vol] 279 10*3/uL 150-450 [facility] No Panel InformationOrdered By: [facility] Splurgy on 06-05-2023 Rubella IgG Antibody Reactive Nonreactive [facility] Comment on above: Antibody Results Int erpretation of Immune Status Non Reactive Presumed Non-Immune Equivocal Equivocal Reactive Presumed Immune Serum measles virus IgG anti body assay (units/volume)Ordered By: BonaYou on 06-05-2023 MeV IgG Qn (S) 32.0 AU/mL Immune >16.4 [facility] Comment on above: Negative <13.5 Equiv ocal 13.5 - 16.4 Positive >16.4Presence of antibodies to Rubeola is presumptive evidenceof immunity except when acute infection is suspected.Performed at: [facility] [address] [id number] Director: Joseph Doe PhD, Phone: [phone] Serum mumps virus IgG antibo dy assay (units/volume)Ordered By: [employer] [facility] on 06-05-2023 MuV IgG Qn (S) 16.1 AU/mL Immune >10.9 [facility] Comment on above: Negative <9.0 Equivo scout 9.0 - 10.9 Positive >10.9A positive result generally indicates past exposure toMumps virus or previous vaccination. Laboratory - Chemistry and C hemistry - challengeon 05-26-2023 HCG ( test) Ql (U) Negative [facility] Laboratory - Chemistry and C hemistry - challengeOrdered By: Saritha Salgado on 04-28-2023 Free T4 [Mass/Vol] 0.90 ng/dL 0.76-1.46 [facility] No Panel InformationOrdered By: Saritha Salgado on 04-28-2023 Thyroid Stimulating Hormone (TSH) 1.16 uIU/mL 0.358-3.74 [facility] Serum or plasma thyroperoxid ase antibody assay (units/volume)Ordered By: Saritha Salgado on 04-28-2023 TPO Ab Qn 23 [IU]/mL 0-34 [facility] Comment on above: Performed at: [facility] [address] [id number] Director: Joseph Doe PhD, Phone: [phone] Serum or plasma choriogonado tropin detectionOrdered By: Saritha Salgado on 03-18-2023 HCG ( test) Ql 3 mIU/mL <4 [facility] Comment on above: hCG levels with Gest ational AgeGestational Age hCG mIU/mL (IU/L)0.2 - 1 week 5 - 501-2 weeks 50 - 5002-3 weeks 100 - 96769-5 weeks 500 - 533653-7 weeks 1000 - 708820-4 weeks 21146 - 100,0006-8 weeks 49774 - 200,0002-3 months 01557 - 100,000 Serum or plasma choriogonado tropin detectionOrdered By: Saritha Salgado on 03-12-2023 HCG ( test) Ql 4 mIU/mL <4 [facility] Comment on above: hCG levels with Gest ational AgeGestational Age hCG mIU/mL (IU/L)0.2 - 1 week 5 - 501-2 weeks 50 - 5002-3 weeks 100 - 71134-7 weeks 500 - 002730-7 weeks 1000 - 011664-0 weeks 45449 - 100,0006-8 weeks 04425 - 200,0002-3 months 09405 - 100,000 Absolute lymphocyte countOrd ered By: [address] Street on 03-05-2023 Lymphocytes Auto (Unsp spec) [#/Vol] 2.30 10*3/uL 0.83-4.51 [facility] Basophil percentageOrdered B y: [address] Street on 03-05-2023 Basophils/100 WBC (Bld) 0.6 % 0-1 [facility] Eosinophils/100 WBC (Bld) 2.2 % 0-5 [facility] Neutrophils (Bld) [#/Vol] 4.1 10*3/uL 2.0-7.7 [facility] Neutrophils/100 WBC (Bld) 57.4 % 47-70 [facility] WBC (Bld) [#/Vol] 7.2 10*3/uL 4.4-11.0 [facility] Blood erythrocytes count (nu mber/volume)Ordered By: [address]y Street on 03-05-2023 RBC (Bld) [#/Vol] 3.84 10*6/uL 4.2-5.4 [facility] Blood hemoglobin measurement (mass/volume)Ordered By: [address] Street on 03-05-2023 Hemoglobin (Bld) [Mass/Vol] 11.5 g/dL 12.0-15.0 [facility] Blood lymphocytes/100 leukoc ytesOrdered By: Karey Street on 03-05-2023 Lymphocytes/100 WBC (Bld) 32.0 % 19-41 [facility] Blood monocytes/100 leukocyt esOrdered By: [address]arey Street on 03-05-2023 Monocytes/100 WBC (Bld) 7.5 % 0-10 [facility] Blood platelet mean volumeOr dered By: [address]arey Street on 03-05-2023 Platelet mean volume (Bld) [Entitic vol] 12.0 fL 6.2-12.0 [facility] Determination of erythrocyte mean corpuscular volume (MCV)Ordered By: [address] Street on 03-05-2023 MCV (RBC) [Entitic vol] 94.3 fL 81-99 [facility] Hematocrit Auto (Bld) [Volum e fraction]Ordered By: [address] Street on 03-05-2023 Hematocrit (Bld) [Volume fraction] 36.2 % 37-47 [facility] Laboratory - Hematology and Cell countsOrdered By: Karey Street on 03-05-2023 Erythrocyte distribution width (RBC) [Entitic vol] 43.8 fL 35.1-43.9 [facility] Erythrocyte distribution width (RBC) [Ratio] 12.9 % 11.6-14.6 [facility] Immature granulocytes/100 WBC (Bld) 0.300 % 0.0-0.9 [facility] Comment on above: IG% - Immature Granu locytes (promyelocytes, myelocytes and metamyelocytes) > 1% indicates that a LEFT SHIFT is Present. MCH (RBC) [Entitic mass] 29.9 pg 27.0-32.0 [facility] Nucleated RBC/100 WBC (Bld) [Ratio] 0 % 0-5 [facility] MCHC Auto (RBC) [Mass/Vol]Or dered By: [address] on 03-05-2023 MCHC (RBC) [Mass/Vol] 31.8 g/dL 32-36 [facility] Platelets bldOrdered By: [address] on 03-05-2023 Platelets (Bld) [#/Vol] 279 10*3/uL 150-450 [facility] Serum or plasma choriogonado tropin detectionOrdered By: [address]arey Street on 03-05-2023 HCG ( test) Ql 7 mIU/mL <4 [facility] Serum or plasma choriogonado tropin detectionOrdered By: Karey Street on 02-19-2023 HCG ( test) Ql 36 mIU/mL <4 [facility] Comment on above: hCG levels with Gest ational AgeGestational Age hCG mIU/mL (IU/L)0.2 - 1 week 5 - 501-2 weeks 50 - 5002-3 weeks 100 - 81075-2 weeks 500 - 843786-3 weeks 1000 - 481308-5 weeks 29496 - 100,0006-8 weeks 22105 - 200,0002-3 months 81547 - 100,000 Serum or plasma choriogonado tropin detectionOrdered By: Karey Street on 02-12-2023 HCG ( test) Ql 77 mIU/mL <4 [facility] Comment on above: hCG levels with Gest ational AgeGestational Age hCG mIU/mL (IU/L)0.2 - 1 week 5 - 501-2 weeks 50 - 5002-3 weeks 100 - 10644-5 weeks 500 - 340709-2 weeks 1000 - 472759-9 weeks 73052 - 100,0006-8 weeks 28199 - 200,0002-3 months 63846 - 100,000 Serum or plasma choriogonado tropin detectionOrdered By: Saritha Salgado on 02-05-2023 HCG ( test) Ql 154 mIU/mL <4 [facility] Comment on above: hCG levels with Gest ational AgeGestational Age hCG mIU/mL (IU/L)0.2 - 1 week 5 - 501-2 weeks 50 - 5002-3 weeks 100 - 51574-1 weeks 500 - 484618-8 weeks 1000 - 477434-2 weeks 65550 - 100,0006-8 weeks 84349 - 200,0002-3 months 35521 - 100,000 Serum or plasma choriogonado tropin detectionOrdered By: Saritha Salgado on 01-29-2023 HCG ( test) Ql 361 mIU/mL <4 [facility] Comment on above: hCG levels with Gest ational AgeGestational Age hCG mIU/mL (IU/L)0.2 - 1 week 5 - 501-2 weeks 50 - 5002-3 weeks 100 - 57422-8 weeks 500 - 316610-9 weeks 1000 - 361091-6 weeks 42273 - 100,0006-8 weeks 36654 - 200,0002-3 months 38139 - 100,000 Serum or plasma choriogonado tropin detectionOrdered By: Saritha Salgado on 01-26-2023 HCG ( test) Ql 474 mIU/mL <4 [facility] Comment on above: hCG levels with Gest ational AgeGestational Age hCG mIU/mL (IU/L)0.2 - 1 week 5 - 501-2 weeks 50 - 5002-3 weeks 100 - 78476-1 weeks 500 - 398981-0 weeks 1000 - 867651-9 weeks 48526 - 100,0006-8 weeks 45647 - 200,0002-3 months 54904 - 100,000 Absolute lymphocyte countOrd ered By: Saritha Salgado on 01-23-2023 Lymphocytes Auto (Unsp spec) [#/Vol] 2.41 10*3/uL 0.83-4.51 [facility] Basophil percentageOrdered B y: Saritha Salgado on 01-23-2023 Basophils/100 WBC (Bld) 0.9 % 0-1 [facility] Bilirubin [Mass/Vol] 0.40 mg/dL 0.20-1.00 [facility] Comment on above: For patients on eltr ombopag therapy, use of Dimension [place] TBIL is not recommended. Chloride [Moles/Vol] 105 mmol/L 98-107 [facility] Eosinophils/100 WBC (Bld) 1.8 % 0-5 [facility] Glucose [Mass/Vol] 96 mg/dL 74-106 [facility] Neutrophils (Bld) [#/Vol] 3.6 10*3/uL 2.0-7.7 [facility] Neutrophils/100 WBC (Bld) 54.0 % 47-70 [facility] Potassium [Moles/Vol] 3.9 mmol/L 3.5-5.1 [facility] Protein [Mass/Vol] 7.9 g/dL 6.4-8.2 [facility] Sodium [Moles/Vol] 137 mmol/L 136-145 [facility] WBC (Bld) [#/Vol] 6.7 10*3/uL 4.4-11.0 [facility] Blood erythrocytes count (nu mber/volume)Ordered By: Saritha Salgado on 01-23-2023 RBC (Bld) [#/Vol] 4.09 10*6/uL 4.2-5.4 [facility] Blood hemoglobin measurement (mass/volume)Ordered By: Saritha Salgado on 01-23-2023 Hemoglobin (Bld) [Mass/Vol] 12.4 g/dL 12.0-15.0 [facility] Blood lymphocytes/100 leukoc ytesOrdered By: Saritha Salgado on 01-23-2023 Lymphocytes/100 WBC (Bld) 35.9 % 19-41 [facility] Blood monocytes/100 leukocyt esOrdered By: Saritha Salgado on 01-23-2023 Monocytes/100 WBC (Bld) 7.3 % 0-10 [facility] Blood platelet mean volumeOr dered By: Saritha Salgado on 01-23-2023 Platelet mean volume (Bld) [Entitic vol] 11.6 fL 6.2-12.0 [facility] Determination of erythrocyte mean corpuscular volume (MCV)Ordered By: Saritha Salgado on 01-23-2023 MCV (RBC) [Entitic vol] 91.0 fL 81-99 [facility] Hematocrit Auto (Bld) [Volum e fraction]Ordered By: Saritha Salgado on 01-23-2023 Hematocrit (Bld) [Volume fraction] 37.2 % 37-47 [facility] Laboratory - Chemistry and C hemistry - challengeOrdered By: Saritha Salgado on 01-23-2023 ALP [Catalytic activity/Vol] 82 U/L 45-117 [facility] ALT [Catalytic activity/Vol] 17 U/L 13-56 [facility] CO2 [Moles/Vol] 28.0 mmol/L 21.0-32.0 [facility] Globulin (S) [Mass/Vol] 4.0 g/dL 2.2-4.2 [facility] Urea nitrogen/Creatinine [Mass ratio] 11.0 mg/mg 10-20 [facility] Laboratory - Hematology and Cell countsOrdered By: Saritha Salgado on 01-23-2023 Erythrocyte distribution width (RBC) [Entitic vol] 40.2 fL 35.1-43.9 [facility] Erythrocyte distribution width (RBC) [Ratio] 12.1 % 11.6-14.6 [facility] Immature granulocytes/100 WBC (Bld) 0.100 % 0.0-0.9 [facility] Comment on above: IG% - Immature Granu locytes (promyelocytes, myelocytes and metamyelocytes) > 1% indicates that a LEFT SHIFT is Present. MCH (RBC) [Entitic mass] 30.3 pg 27.0-32.0 [facility] Nucleated RBC/100 WBC (Bld) [Ratio] 0 % 0-5 [facility] MCHC Auto (RBC) [Mass/Vol]Or dered By: Saritha Salgado on 01-23-2023 MCHC (RBC) [Mass/Vol] 33.3 g/dL 32-36 [facility] No Panel InformationOrdered By: Saritha Salgado on 01-23-2023 Estimated GFR (MDRD) Amer 119 mL/min >60 [facility] Comment on above: GFR Calc Estimated GFR (MDRD) Non-Af Amer 99 mL/min >60 [facility] Comment on above: Non- GFR Calc Platelets bldOrdered By: Demario Salgado on 01-23-2023 Platelets (Bld) [#/Vol] 272 10*3/uL 150-450 [facility] Serum or plasma albumin rachel urement (mass/volume)Ordered By: Saritha Salgado on 01-23-2023 Albumin [Mass/Vol] 3.9 g/dL 3.2-5.0 [facility] Serum or plasma albumin/glob ulin mass ratioOrdered By: Saritha Salgado on 01-23-2023 Albumin/Globulin [Mass ratio] 1.0 {ratio} 0.9-2.4 [facility] Serum or plasma calcium rachel urement (mass/volume)Ordered By: Saritha Salgado on 01-23-2023 Calcium [Mass/Vol] 8.9 mg/dL 8.5-10.1 [facility] Serum or plasma choriogonado tropin detectionOrdered By: Saritha Salgado on 01-23-2023 HCG ( test) Ql 407 mIU/mL <4 [facility] Comment on above: hCG levels with Gest ational AgeGestational Age hCG mIU/mL (IU/L)0.2 - 1 week 5 - 501-2 weeks 50 - 5002-3 weeks 100 - 32512-6 weeks 500 - 219936-0 weeks 1000 - 849035-8 weeks 54917 - 100,0006-8 weeks 40259 - 200,0002-3 months 20707 - 100,000 Serum or plasma creatinine m easurement (mass/volume)Ordered By: Saritha Salgado on 01-23-2023 Creatinine [Mass/Vol] 0.73 mg/dL 0.55-1.02 [facility] Comment on above: The validity of the calculated GFR & GFRAA in patients over 70 years has not been determined. Clinical correlation is essential. Serum or plasma urea nitroge n measurement (mass/volume)Ordered By: Saritha Salgado on 01-23-2023 Urea nitrogen [Mass/Vol] 8 mg/dL 7-18 [facility] Thin prep Papanicolaou smear with manual screeningOrdered By: Saritha Salgado on 01-23-2023 Thin prep Papanicolaou smear with manual screening 17 U/L 15-37 [facility] Thin prep Papanicolaou smear with manual screening 4 5-15 [facility] Serum or plasma choriogonado tropin detectionOrdered By: Saritha Salgado on 01-22-2023 HCG ( test) Ql 321 mIU/mL <4 [facility] Comment on above: hCG levels with Gest ational AgeGestational Age hCG mIU/mL (IU/L)0.2 - 1 week 5 - 501-2 weeks 50 - 5002-3 weeks 100 - 67447-0 weeks 500 - 961350-2 weeks 1000 - 765957-8 weeks 24268 - 100,0006-8 weeks 42295 - 200,0002-3 months 13125 - 100,000 Serum or plasma choriogonado tropin detectionOrdered By: Saritha Salgado on 01-20-2023 HCG ( test) Ql 233 mIU/mL <4 [facility] Comment on above: hCG levels with Gest ational AgeGestational Age hCG mIU/mL (IU/L)0.2 - 1 week 5 - 501-2 weeks 50 - 5002-3 weeks 100 - 36906-1 weeks 500 - 424009-9 weeks 1000 - 528185-9 weeks 90934 - 100,0006-8 weeks 50031 - 200,0002-3 months 47838 - 100,000 Dilute David's viper venom timeOrdered By: Saritha Hal on 01-16-2023 dRVVT Coag (PPP) [Time] 38.6 s 0.0-47.0 [facility] No Panel InformationOrdered By: Saritha Hal on 01-16-2023 Anti-Cardiolipin IgM Antibody < 9 MPL U/mL 0-12 [facility] Comment on above: Negative: <13 Indete rminate: 13 - 20 Low-Med Positive: >20 - 80 High Positive: >80 Serum beta 2 glycoprotein 1 IgA antibody detectionOrdered By: Saritha Salgado on 01-16-2023 Beta 2 glycoprotein 1 IgA Ql (S) <9 0-25 [facility] Comment on above: Result Units: GPI Ig A unitsThe reference interval reflects a 3SD or 99th percentileinterval, which is thought to represent a potentiallyclinically significant result in accordance with theInternational Consensus Statement on the classificationcriteria for definitive antiphospholipid syndrome (APS). JThromb Haem 2006;4:295-306. Serum beta 2 glycoprotein 1 IgG antibody detectionOrdered By: Saritha Salgado on 01-16-2023 Beta 2 glycoprotein 1 IgG Ql (S) <9 0-20 [facility] Comment on above: Result Units: GPI Ig G unitsThe reference interval reflects a 3SD or 99th percentileinterval, which is thought to represent a potentiallyclinically significant result in accordance with theInternational Consensus Statement on the classificationcriteria for definitive antiphospholipid syndrome (APS). JThromb Haem 2006;4:295-306. Serum beta 2 glycoprotein 1 IgM antibody detectionOrdered By: Saritha Salgado on 01-16-2023 Beta 2 glycoprotein 1 IgM Ql (S) <9 0-32 [facility] Comment on above: Result Units: GPI Ig M unitsThe reference interval reflects a 3SD or 99th percentileinterval, which is thought to represent a potentiallyclinically significant result in accordance with theInternational Consensus Statement on the classificationcriteria for definitive antiphospholipid syndrome (APS). JThromb Haem 2006;4:295-306.Performed at: [address] [id number] Director: Nae Mendiola MD, Phone: [phone] at: [facility] [id number] [place], [place] [id number] Director: Joseph Doe PhD, Phone: [phone] Serum cardiolipin IgG antibo dy assay by immunoassay (units/volume)Ordered By: Saritha Salgado on 01-16-2023 Cardiolipin IgG IA Qn (S) < 9 GPL U/mL 0-14 [facility] Comment on above: Negative: <15 Indete rminate: 15 - 20 Low-Med Positive: >20 - 80 High Positive: >80 Serum or plasma cardiolipin IgA antibody assay (units/volume)Ordered By: Saritha Salgado on 01-16-2023 Cardiolipin IgA Qn < 9 APL U/mL 0-11 [facility] Comment on above: Negative: <12 Indete rminate: 12 - 20 Low-Med Positive: >20 - 80 High Positive: >80 Thin prep Papanicolaou smear with manual screeningOrdered By: Saritha Salgado on 01-16-2023 Thin prep Papanicolaou smear with manual screening 37.8 sec 0.0-47.6 [facility] Thin prep Papanicolaou smear with manual screening 0.97 Ratio 0.00-1.34 [facility] Thin prep Papanicolaou smear with manual screening 35.1 sec 0.0-43.5 [facility] Thin prep Papanicolaou smear with manual screening Comment: . [facility] Comment on above: No lupus anticoagula nt was detected. Thrombin time in platelet po or plasmaOrdered By: Saritha Salgado on 01-16-2023 Thrombin time Coag (PPP) [Time] 17.0 sec 0.0-23.0 [facility] Serum or plasma choriogonado tropin detectionOrdered By: Saritha Salgado on 01-14-2023 HCG ( test) Ql 154 mIU/mL <4 [facility] Comment on above: hCG levels with Gest ational AgeGestational Age hCG mIU/mL (IU/L)0.2 - 1 week 5 - 501-2 weeks 50 - 5002-3 weeks 100 - 45837-6 weeks 500 - 155139-3 weeks 1000 - 942318-8 weeks 08381 - 100,0006-8 weeks 20389 - 200,0002-3 months 23708 - 100,000 Serum or plasma choriogonado tropin detectionOrdered By: Saritha Salgado on 01-12-2023 HCG ( test) Ql 122 mIU/mL <4 [facility] Comment on above: hCG levels with Gest ational AgeGestational Age hCG mIU/mL (IU/L)0.2 - 1 week 5 - 501-2 weeks 50 - 5002-3 weeks 100 - 12726-7 weeks 500 - 794122-2 weeks 1000 - 272745-5 weeks 68328 - 100,0006-8 weeks 99622 - 200,0002-3 months 05388 - 100,000 Serum or plasma choriogonado tropin detectionOrdered By: Karey Street on 11-04-2022 HCG ( test) Ql < 1 mIU/mL <4 [facility] Comment on above: hCG levels with Gest ational AgeGestational Age hCG mIU/mL (IU/L)0.2 - 1 week 5 - 501-2 weeks 50 - 5002-3 weeks 100 - 52879-7 weeks 500 - 316344-5 weeks 1000 - 335518-7 weeks 62669 - 100,0006-8 weeks 62063 - 200,0002-3 months 82154 - 100,000 Serum or plasma choriogonado tropin detectionOrdered By: Dr. Kimbrough on 10-31-2022 HCG ( test) Ql < 1 mIU/mL <4 [facility] Comment on above: hCG levels with Gest ational AgeGestational Age hCG mIU/mL (IU/L)0.2 - 1 week 5 - 501-2 weeks 50 - 5002-3 weeks 100 - 27228-5 weeks 500 - 647655-2 weeks 1000 - 689587-2 weeks 56201 - 100,0006-8 weeks 94839 - 200,0002-3 months 97085 - 100,000 Laboratory - Microbiology an d Antimicrobial susceptibilityon 09-23-2022 SARS-CoV-2 (COVID-19) RNA MAE+probe Ql (Unsp spec) Not detected [facility] No Panel Informationon 09-23 POC Nasal Swab Influenza A,B Not detected [facility] POC Nasal Swab RSV Not detected [facility] No Panel Informationon 05-24 Miscellaneous Test Comment MAILED SPECIMEN [facility] Work Phone: Laboratory - Chemistry and C hemistry - challengeon 04-15-2022 Free T4 [Mass/Vol] 0.91 ng/dL 0.76-1.46 [facility] Work Phone: No Panel Informationon 04-15 Thyroid Stimulating Hormone (TSH) 0.99 uIU/mL 0.358-3.74 [facility] Work Phone: Serum or plasma thyroperoxid ase antibody assay (units/volume)on 04-15-2022 TPO Ab Qn 15 [IU]/mL 0-34 [facility] Work Phone: Comment on above: Performed at: [address] [id number] Director: Joseph Doe PhD, Phone: [phone] Basophil percentageon 2021 WBC (Bld) [#/Vol] 9.9 10*3/uL 4.4-11.0 [facility] Work Phone: Blood erythrocytes count (nu mber/volume)on 02-26-2022 RBC (Bld) [#/Vol] 3.04 10*6/uL 4.2-5.4 [facility] Work Phone: Blood hemoglobin measurement (mass/volume)on 02-26-2022 Hemoglobin (Bld) [Mass/Vol] 9.6 g/dL 12.0-15.0 [facility] Work Phone: Blood platelet mean volumeon 02-26-2022 Platelet mean volume (Bld) [Entitic vol] 11.4 fL 6.2-12.0 [facility] Work Phone: Determination of erythrocyte mean corpuscular volume (MCV)on 02-26-2022 MCV (RBC) [Entitic vol] 94.4 fL 81-99 [facility] Work Phone: Dilute David's viper venom timeon 02-26-2022 dRVVT Coag (PPP) [Time] 32.2 s 0.0-47.0 [facility] Work Phone: Hematocrit Auto (Bld) [Volum e fraction]on 02-26-2022 Hematocrit (Bld) [Volume fraction] 28.7 % 37-47 [facility] Work Phone: Laboratory - Hematology and Cell countson 02-26-2022 Erythrocyte distribution width (RBC) [Entitic vol] 48.1 fL 35.1-43.9 [facility] Work Phone: Erythrocyte distribution width (RBC) [Ratio] 14.7 % 11.6-14.6 [facility] Work Phone: MCH (RBC) [Entitic mass] 31.6 pg 27.0-32.0 [facility] Work Phone: MCHC Auto (RBC) [Mass/Vol]on 02-26-2022 MCHC (RBC) [Mass/Vol] 33.4 g/dL 32-36 [facility] Work Phone: No Panel Informationon 02-26 Anti-Cardiolipin IgM Antibody < 9 MPL U/mL 0-12 [facility] Work Phone: Comment on above: Negative: <13 Indete rminate: 13 - 20 Low-Med Positive: >20 - 80 High Positive: >80 Thyroid Stimulating Hormone (TSH) 1.80 uIU/mL 0.358-3.74 [facility] Work Phone: Toxoplasma Comment Comment . [facility] Work Phone: Comment on above: It is presumed the p atient has not been infected with andis not undergoing an acute infection with Toxoplasma. Ifsymptoms persist, submit a new specimen after three weeks. Platelets bldon 02-26-2022 Platelets (Bld) [#/Vol] 175 10*3/uL 150-450 [facility] Work Phone: Serum Parvovirus B19 IgG ant ibody assay by immunoassay (units/volume)on 02-26-2022 Parvovirus B19 IgG IA Qn (S) 0.6 index 0.0-0.8 [facility] Work Phone: Comment on above: Negative <0.9 Equivo scout 0.9 - 1.1 Positive >1.1 Serum Parvovirus B19 IgM ant ibody assay by immunoassay (units/volume)on 02-26-2022 Parvovirus B19 IgM IA Qn (S) 0.3 index 0.0-0.8 [facility] Work Phone: Comment on above: Negative <0.9 Equivo scout 0.9 - 1.1 Positive >1.1 Serum Toxoplasma gondii IgG antibody assay (units/volume)on 02-26-2022 T. gondii IgG Qn (S) < 3.0 IU/mL 0.0-7.1 [facility] Work Phone: Comment on above: Negative <7.2 Equivo scout 7.2 - 8.7 Positive >8.7Performed at: [facility] [address] [id number] Director: Joseph Doe PhD, Phone: [phone] Serum Toxoplasma gondii IgM antibody assay by immunoassay (units/volume)on 02-26-2022 T. gondii IgM IA Qn (S) < 3.0 AU/mL 0.0-7.9 [facility] Work Phone: Comment on above: Negative <8.0 Equivo scout 8.0 - 9.9 Positive >9.9 Serum beta 2 glycoprotein 1 IgA antibody detectionon 02-26-2022 Beta 2 glycoprotein 1 IgA Ql (S) <9 0-25 [facility] Work Phone: Comment on above: Result Units: GPI Ig A unitsThe reference interval reflects a 3SD or 99th percentileinterval, which is thought to represent a potentiallyclinically significant result in accordance with theInternational Consensus Statement on the classificationcriteria for definitive antiphospholipid syndrome (APS). JThromb Haem 2006;4:295-306. Serum beta 2 glycoprotein 1 IgG antibody detectionon 02-26-2022 Beta 2 glycoprotein 1 IgG Ql (S) <9 0-20 [facility] Work Phone: Comment on above: Result Units: GPI Ig G unitsThe reference interval reflects a 3SD or 99th percentileinterval, which is thought to represent a potentiallyclinically significant result in accordance with theInternational Consensus Statement on the classificationcriteria for definitive antiphospholipid syndrome (APS). JThromb Haem 2006;4:295-306. Serum beta 2 glycoprotein 1 IgM antibody detectionon 02-26-2022 Beta 2 glycoprotein 1 IgM Ql (S) <9 0-32 [facility] Work Phone: Comment on above: Result Units: GPI Ig M unitsThe reference interval reflects a 3SD or 99th percentileinterval, which is thought to represent a potentiallyclinically significant result in accordance with theInternational Consensus Statement on the classificationcriteria for definitive antiphospholipid syndrome (APS). JThromb Haem 2006;4:295-306. Serum cardiolipin IgG antibo dy assay by immunoassay (units/volume)on 02-26-2022 Cardiolipin IgG IA Qn (S) < 9 GPL U/mL 0-14 [facility] Work Phone: Comment on above: Negative: <15 Indete rminate: 15 - 20 Low-Med Positive: >20 - 80 High Positive: >80 Serum or plasma cardiolipin IgA antibody assay (units/volume)on 02-26-2022 Cardiolipin IgA Qn < 9 APL U/mL 0-11 [facility] Work Phone: Comment on above: Negative: <12 Indete rminate: 12 - 20 Low-Med Positive: >20 - 80 High Positive: >80 Serum or plasma cytomegalovi jong (CMV) IgG antibody assay (units/volume)on 02-26-2022 CMV IgG Qn < 0.60 U/mL 0.00-0.59 [facility] Work Phone: Comment on above: Negative <0.60 Equiv ocal 0.60 - 0.69 Positive >0.69 Serum or plasma cytomegalovi jong (CMV) IgM antibody assay (units/volume)on 02-26-2022 CMV IgM Qn < 30.0 AU/mL 0.0-29.9 [facility] Work Phone: Comment on above: Negative <30.0 Equiv ocal 30.0 - 34.9 Positive >34.9A positive result is generally indicative of acuteinfection, reactivation or persistent IgM production.Performed at: - [facility] [id number] Director: Nae Mendiola MD, Phone: [phone] at: [facility] [id number] [place], [place] [id number] Director: Joseph Doe PhD, Phone: [phone] Thin prep Papanicolaou smear with manual screeningon 02-26-2022 Thin prep Papanicolaou smear with manual screening 34.7 sec 0.0-47.6 [facility] Work Phone: Thin prep Papanicolaou smear with manual screening 1.19 Ratio 0.00-1.34 [facility] Work Phone: Thin prep Papanicolaou smear with manual screening 37.1 sec 0.0-51.9 [facility] Work Phone: Thin prep Papanicolaou smear with manual screening Comment: . [facility] Work Phone: Comment on above: No lupus anticoagula nt was detected. Thrombin time in platelet po or plasmaon 02-26-2022 Thrombin time Coag (PPP) [Time] 17.0 sec 0.0-23.0 [facility] Work Phone: Whole blood hemoglobin A1c/t otal hemoglobin ratio (mass fraction)on 02-26-2022 HbA1c (Bld) [Mass fraction] % 3.8-5.6 [facility] Work Phone: Comment on above: Normal < 5.7 % Predi abetic 5.7 - 6.4 % Diabetic >or= 6.5 % Please note range changes. INR in Blood by Coagulation assayon 02-25-2022 INR Coag (Bld) [Relative time] 1.1 {INR} [facility] Work Phone: Laboratory - Coagulationon 0 02-25-2022 aPTT Coag (Bld) [Time] 27.7 s 24.1-36.2 [facility] Work Phone: PT Coag (PPP) [Time] 14.1 s 11.7-14.9 [facility] Work Phone: [phone] No Panel Informationon 02-25 Fibrinogen 320 mg/dl 203-444 [facility] Work Phone: Kyle Hemoglobin (L Positive [facility] Work Phone: Comment on above: Karenmanasa [employer]oo [employer] y Reference: Negative POSITIVE AB* Feto-maternal hemorrhage ( RBCs): 127.5 mL. TESTING PERFORMED AT [facility]. ORIGINAL REPORT ON FILE IN LAB CONTAINS ADDITIONAL TEST SITE INFORMATION. ____ Laboratory - Chemistry and C hemistry - challengeon 02-22-2022 Glucose Ql (U) Negative [facility] Work Phone: [phone] Laboratory - Urinalysison Protein Ql (U) Negative [facility] Work Phone: [phone] Absolute lymphocyte counton 02-18-2022 Lymphocytes Auto (Unsp spec) [#/Vol] 1.57 10*3/uL 0.83-4.51 [facility] Work Phone: Basophil percentageon 2021 Basophils/100 WBC (Bld) 0.4 % 0-1 [facility] Work Phone: Eosinophils/100 WBC (Bld) 0.6 % 0-5 [facility] Work Phone: Neutrophils (Bld) [#/Vol] 4.9 10*3/uL 2.0-7.7 [facility] Work Phone: Neutrophils/100 WBC (Bld) 69.7 % 47-70 [facility] Work Phone: WBC (Bld) [#/Vol] 7.1 10*3/uL 4.4-11.0 [facility] Work Phone: Blood erythrocytes count (nu mber/volume)on 02-18-2022 RBC (Bld) [#/Vol] 3.42 10*6/uL 4.2-5.4 [facility] Work Phone: Blood hemoglobin measurement (mass/volume)on 02-18-2022 Hemoglobin (Bld) [Mass/Vol] 10.7 g/dL 12.0-15.0 [facility] Work Phone: Blood lymphocytes/100 leukoc yteson 02-18-2022 Lymphocytes/100 WBC (Bld) 22.2 % 19-41 [facility] Work Phone: Blood monocytes/100 leukocyt eson 02-18-2022 Monocytes/100 WBC (Bld) 6.4 % 0-10 [facility] Work Phone: Blood platelet mean volumeon 02-18-2022 Platelet mean volume (Bld) [Entitic vol] 11.5 fL 6.2-12.0 [facility] Work Phone: Determination of erythrocyte mean corpuscular volume (MCV)on 02-18-2022 MCV (RBC) [Entitic vol] 93.6 fL 81-99 [facility] Work Phone: Hematocrit Auto (Bld) [Volum e fraction]on 02-18-2022 Hematocrit (Bld) [Volume fraction] 32.0 % 37-47 [facility] Work Phone: Laboratory - Hematology and Cell countson 02-18-2022 Erythrocyte distribution width (RBC) [Entitic vol] 47.8 fL 35.1-43.9 [facility] Work Phone: Erythrocyte distribution width (RBC) [Ratio] 14.5 % 11.6-14.6 [facility] Work Phone: Immature granulocytes/100 WBC (Bld) 0.700 % 0.0-0.9 [facility] Work Phone: Comment on above: IG% - Immature Granu locytes (promyelocytes, myelocytes and metamyelocytes) > 1% indicates that a LEFT SHIFT is Present. MCH (RBC) [Entitic mass] 31.3 pg 27.0-32.0 [facility] Work Phone: Nucleated RBC/100 WBC (Bld) [Ratio] 0 % 0-5 [facility] Work Phone: [phone] MCHC Auto (RBC) [Mass/Vol]on 02-18-2022 MCHC (RBC) [Mass/Vol] 33.4 g/dL 32-36 [facility] Work Phone: [phone] Platelets bldon 02-18-2022 Platelets (Bld) [#/Vol] 166 10*3/uL 150-450 [facility] Work Phone: Laboratory - Chemistry and C hemistry - challengeon 02-15-2022 Glucose Ql (U) Negative [facility] Work Phone: Laboratory - Urinalysison Protein Ql (U) Negative [facility] Work Phone: Laboratory - Chemistry and C hemistry - challengeon 02-01-2022 Glucose Ql (U) Negative [facility] Work Phone: Laboratory - Urinalysison Protein Ql (U) Negative [facility] Work Phone: Laboratory - Chemistry and C hemistry - challengeon 01-18-2022 Glucose Ql (U) Negative [facility] Work Phone: Laboratory - Urinalysison Protein Ql (U) Negative [facility] Work Phone: Laboratory - Microbiology an d Antimicrobial susceptibilityon 01-13-2022 SARS-CoV-2 (COVID-19) RNA MAE+probe Ql (Unsp spec) Detected [facility] Work Phone: No Panel Informationon 01-13 Influenza Types A,B Rapid (Clinic) Not detected [facility] Work Phone: Laboratory - Microbiology an d Antimicrobial susceptibilityon 01-06-2022 SARS-CoV-2 (COVID-19) RNA MAE+probe Ql (Unsp spec) Not detected [facility] Work Phone: No Panel Informationon 01-06 POC Nasal Swab Influenza A,B Not detected [facility] Work Phone: POC Nasal Swab RSV Not detected [facility] Work Phone: Basophil percentageon 2021 WBC (Bld) [#/Vol] 7.7 10*3/uL 4.4-11.0 [facility] Work Phone: Blood erythrocytes count (nu mber/volume)on 12-07-2021 RBC (Bld) [#/Vol] 3.23 10*6/uL 4.2-5.4 [facility] Work Phone: Blood hemoglobin measurement (mass/volume)on 12-07-2021 Hemoglobin (Bld) [Mass/Vol] 10.3 g/dL 12.0-15.0 [facility] Work Phone: Blood platelet mean volumeon 12-07-2021 Platelet mean volume (Bld) [Entitic vol] 11.4 fL 6.2-12.0 [facility] Work Phone: Determination of erythrocyte mean corpuscular volume (MCV)on 12-07-2021 MCV (RBC) [Entitic vol] 94.7 fL 81-99 [facility] Work Phone: Gestational diabetes screen 1-hour screen with 50g oral glucose loadon 12-07-2021 Glucose 1 Hr post 50 g glucose PO [Mass/Vol] 145 mg/dL 70-140 [facility] Work Phone: Hematocrit Auto (Bld) [Volum e fraction]on 12-07-2021 Hematocrit (Bld) [Volume fraction] 30.6 % 37-47 [facility] Work Phone: Laboratory - Hematology and Cell countson 12-07-2021 Erythrocyte distribution width (RBC) [Entitic vol] 42.0 fL 35.1-43.9 [facility] Work Phone: [phone] Erythrocyte distribution width (RBC) [Ratio] 12.1 % 11.6-14.6 [facility] Work Phone: [phone] MCH (RBC) [Entitic mass] 31.9 pg 27.0-32.0 [facility] Work Phone: [phone] MCHC Auto (RBC) [Mass/Vol]on 12-07-2021 MCHC (RBC) [Mass/Vol] 33.7 g/dL 32-36 [facility] Work Phone: [phone] Platelets bldon 12-07-2021 Platelets (Bld) [#/Vol] 240 10*3/uL 150-450 [facility] Work Phone: [phone] Laboratory - Hematology and Cell countson 11-27-2021 Hematocrit (Bld) [Volume fraction] 30.6 % [facility] Work Phone: [phone] MCV (RBC) [Entitic vol] 94.7 fL [facility] Work Phone: [phone] No Panel Informationon 11-27 Platelet Count (Clinic) 240 g/gL [facility] Work Phone: Iron measurement (mass/mass) on 09-07-2021 Iron (Unsp spec) [Mass/Mass] 47 ug/dL 50-170 [facility] Work Phone: [phone] No Panel Informationon 09-07 Total Iron Binding Capacity 342 ug/dL 250-450 [facility] Work Phone: Serum or plasma ferritin lakshmi surement (mass/volume)on 09-07-2021 Ferritin [Mass/Vol] 19 ng/mL 8-252 [facility] Work Phone: Basophil percentageon 2021 Chloride [Moles/Vol] 102 mmol/L 98-[address] [facility] Work Phone: [phone] Glucose [Mass/Vol] 78 mg/dL 74-106 [facility] Work Phone: Potassium [Moles/Vol] 3.6 mmol/L 3.5-5.1 [facility] Work Phone: Sodium [Moles/Vol] 135 mmol/L 136-145 [facility] Work Phone: Laboratory - Chemistry and C hemistry - challengeon 08-22-2021 CO2 [Moles/Vol] 27.0 mmol/L 21.0-32.0 [facility] Work Phone: Urea nitrogen/Creatinine [Mass ratio] 18.7 mg/mg 10-20 [facility] Work Phone: No Panel Informationon 08-22 Estimated GFR (MDRD) Amer 127 mL/min >60 [facility] Work Phone: Comment on above: GFR Calc Estimated GFR (MDRD) Non-Af Amer 105 mL/min >60 [facility] Work Phone: Comment on above: Non- GFR Calc Serum or plasma calcium rachel urement (mass/volume)on 08-22-2021 Calcium [Mass/Vol] 8.9 mg/dL 8.5-10.1 [facility] Work Phone: Serum or plasma creatinine m easurement (mass/volume)on 08-22-2021 Creatinine [Mass/Vol] 0.70 mg/dL 0.55-1.02 [facility] Work Phone: Comment on above: The validity of the calculated GFR & GFRAA in patients over 70 years has not been determined. Clinical correlation is essential. Serum or plasma urea nitroge n measurement (mass/volume)on 08-22-2021 Urea nitrogen [Mass/Vol] 13 mg/dL 7-18 [facility] Work Phone: Thin prep Papanicolaou smear with manual screeningon 08-22-2021 Thin prep Papanicolaou smear with manual screening 6 5-15 [facility] Work Phone: Basophil percentageon 2021 Chloride [Moles/Vol] 104 mmol/L 98-107 [facility] Work Phone: Glucose [Mass/Vol] 87 mg/dL 74-106 [facility] Work Phone: Potassium [Moles/Vol] 3.7 mmol/L 3.5-5.1 [facility] Work Phone: Sodium [Moles/Vol] 136 mmol/L 136-145 [facility] Work Phone: Basophil percentage 10-25 SEEN /hpf [facility] Work Phone: Bilirubin Test strip Ql (U)o n 08-20-2021 Bilirubin Ql (U) Negative Negative [facility] Work Phone: Culture, urineon 08-20-2021 Bacteria identified Cx Nom (U) Positive [facility] Work Phone: Ketones Test strip Ql (U)on 08-20-2021 Ketones Ql (U) 50 mg/dl Negative [facility] Work Phone: Laboratory - Chemistry and C hemistry - challengeon 08-20-2021 CO2 [Moles/Vol] 27.0 mmol/L 21.0-32.0 [facility] Work Phone: Urea nitrogen/Creatinine [Mass ratio] 16.4 mg/mg 10-20 [facility] Work Phone: Mucus LM Ql (Urine sed)on Mucus Ql (Urine sed) 0 SEEN /hpf [facility] Work Phone: Nitrite Test strip Ql (U)on 08-20-2021 Nitrite Ql (U) Negative Negative [facility] Work Phone: No Panel Informationon 08-20 Estimated Creatinine Clearance Calc 85.03 ml/min [facility] Work Phone: Estimated GFR (MDRD) Amer 119 mL/min >60 [facility] Work Phone: Comment on above: GFR Calc Estimated GFR (MDRD) Non-Af Amer 99 mL/min >60 [facility] Work Phone: Comment on above: Non- GFR Calc Protein Test strip Ql (U)on 08-20-2021 Protein Ql (U) 15 mg/dl Negative [facility] Work Phone: Serum or plasma calcium rachel urement (mass/volume)on 08-20-2021 Calcium [Mass/Vol] 9.6 mg/dL 8.5-10.1 [facility] Work Phone: Serum or plasma creatinine m easurement (mass/volume)on 08-20-2021 Creatinine [Mass/Vol] 0.73 mg/dL 0.55-1.02 [facility] Work Phone: Comment on above: The validity of the calculated GFR & GFRAA in patients over 70 years has not been determined. Clinical correlation is essential. Serum or plasma urea nitroge n measurement (mass/volume)on 08-20-2021 Urea nitrogen [Mass/Vol] 12 mg/dL 7-18 [facility] Work Phone: Squamous epithelial cells de tection in urine sediment by light microscopyon 08-20-2021 Epithelial cells.squamous LM Ql (Urine sed) 5-10 SEEN /hpf [facility] Work Phone: Thin prep Papanicolaou smear with manual screeningon 08-20-2021 Thin prep Papanicolaou smear with manual screening 5 5-15 [facility] Work Phone: Urine blood detectionon 07-23 RBC Ql (U) Negative Negative [facility] Work Phone: RBC Ql (U) 0 SEEN /hpf [facility] Work Phone: Urine clarityon 08-20-2021 Clarity (U) Sl. Cloudy Clear [facility] Work Phone: Urine color determinationon 08-20-2021 Color (U) Yellow Yellow [facility] Work Phone: Urine glucose detectionon Glucose Ql (U) Normal mg/dl Normal [facility] Work Phone: Urine leukocyte esterase det ection by dipstickon 08-20-2021 Leukocyte esterase Test strip Ql (U) 100 /ul Negative [facility] Work Phone: Urine pHon 08-20-2021 pH (U) 6.5 [pH] [facility] Work Phone: Urine sediment bacteria coun t by microscopy (number/high power field)on 08-20-2021 Bacteria LM.HPF (Urine sed) [#/Area] 3 /[HPF] None Seen [facility] Work Phone: Urine specific gravity measu rementon 08-20-2021 Specific gravity (U) [Rel density] 1.020 [facility] Work Phone: Urobilinogen Auto test strip Ql (U)on 08-20-2021 Urobilinogen Ql (U) Normal mg/dl Normal [facility] Work Phone: No Panel Information Group B Streptococcus Culture Group B Beta Streptococcus is not isolated. [facility] Work Phone: Vital Signs Date Time Vital Sign Value Performing Clinician Brendan mandel 06-17-2023 18:00-0500 Body temperature 98.2 [degF] No Primary Care Physician [facility] 06-17-2023 18:00-0500 Diastolic blood pressure 60 mm[Hg] No Primary Care Physician [facility] 06-17-2023 18:00-0500 Heart rate 65 /min No Primary Care Physician [facility] 06-17-2023 18:00-0500 Respiratory rate 18 /min No Primary Care Physician [facility] 06-17-2023 18:00-0500 SaO2% (BldA) [Mass fraction] 97 % No Primary Care Physician [facility] 06-17-2023 18:00-0500 Systolic blood pressure 101 mm[Hg] No Primary Care Physician [facility] 06-17-2023 13:35-0500 Body height 154.94 cm No Primary Care Physician [facility] 06-17-2023 13:35-0500 Body mass index (BMI) [Ratio] 30.2 kg/m2 No Primary Care Physician [facility] 06-17-2023 13:35-0500 Body weight 72.5 kg No Primary Care Physician [facility] 05-26-2023 13:40-0500 Body mass index (BMI) [Ratio] 29.7 kg/m2 No Primary Care Physician [facility] 05-26-2023 13:40-0500 Body weight 71.27 kg No Primary Care Physician [facility] 05-26-2023 13:40-0500 Diastolic blood pressure 82 mm[Hg] No Primary Care Physician [facility] 05-26-2023 13:40-0500 Systolic blood pressure 120 mm[Hg] No Primary Care Physician [facility] 04-17-2023 11:46-0400 Body height 154.94 cm No Primary Care Physician [facility] 04-17-2023 11:38-0400 Body mass index (BMI) [Ratio] 29.2 kg/m2 No Primary Care Physician [facility] 04-17-2023 11:38-0400 Body weight 70.36 kg No Primary Care Physician [facility] 04-17-2023 11:38-0400 Diastolic blood pressure 72 mm[Hg] No Primary Care Physician [facility] 04-17-2023 11:38-0400 Systolic blood pressure 109 mm[Hg] No Primary Care Physician [facility] 01-23-2023 09:55-0400 Body height 154.94 cm No Primary Care Physician [facility] 01-23-2023 09:54-0400 Diastolic blood pressure 73 mm[Hg] No Primary Care Physician [facility] 01-23-2023 09:54-0400 Systolic blood pressure 114 mm[Hg] No Primary Care Physician [facility] 10-17-2022 09:05-0400 Body height 154.94 cm No Primary Care Physician [facility] 10-17-2022 09:05-0400 Body temperature 98.5 [degF] No Primary Care Physician [facility] 10-17-2022 09:05-0400 Diastolic blood pressure 68 mm[Hg] No Primary Care Physician [facility] 10-17-2022 09:05-0400 Heart rate 83 /min No Primary Care Physician [facility] 10-17-2022 09:05-0400 SaO2% (BldA) [Mass fraction] 95 % No Primary Care Physician [facility] 10-17-2022 09:05-0400 Systolic blood pressure 98 mm[Hg] No Primary Care Physician [facility] 09-09-2022 09:53-0500 Body temperature 97.6 [degF] No Primary Care Physician [facility] 09-09-2022 09:53-0500 Diastolic blood pressure 72 mm[Hg] No Primary Care Physician [facility] 09-09-2022 09:53-0500 Heart rate 78 /min No Primary Care Physician [facility] 09-09-2022 09:53-0500 Respiratory rate 16 /min No Primary Care Physician [facility] 09-09-2022 09:53-0500 SaO2% (BldA) [Mass fraction] 98 % No Primary Care Physician [facility] 09-09-2022 09:53-0500 Systolic blood pressure 102 mm[Hg] No Primary Care Physician [facility] 08-02-2022 15:45-0500 Body mass index (BMI) [Ratio] 28.9 kg/m2 No Primary Care Physician [facility] 08-02-2022 15:45-0500 Body weight 69.39 kg No Primary Care Physician [facility] 08-02-2022 15:45-0500 Diastolic blood pressure 78 mm[Hg] No Primary Care Physician [facility] 08-02-2022 15:45-0500 Systolic blood pressure 118 mm[Hg] No Primary Care Physician [facility] 05-13-2022 09:26-0400 Body height 154.94 cm No Primary Care Physician [facility] Work Phone: 05-13-2022 09:26-0400 Body mass index (BMI) [Ratio] 27.8 kg/m2 No Primary Care Physician [facility] Work Phone: 05-13-2022 09:26-0400 Body temperature 97.6 [degF] No Primary Care Physician [facility] Work Phone: 05-13-2022 09:26-0400 Body weight 66.67 kg No Primary Care Physician [facility] Work Phone: 05-13-2022 09:26-0400 Diastolic blood pressure 71 mm[Hg] No Primary Care Physician [facility] Work Phone: 05-13-2022 09:26-0400 Heart rate 86 /min No Primary Care Physician [facility] Work Phone: 05-13-2022 09:26-0400 Respiratory rate 16 /min No Primary Care Physician [facility] Work Phone: 05-13-2022 09:26-0400 SaO2% (BldA) [Mass fraction] 94 % No Primary Care Physician [facility] Work Phone: 05-13-2022 09:26-0400 Systolic blood pressure 108 mm[Hg] No Primary Care Physician [facility] Work Phone: 04-15-2022 15:52-0400 Body height 154.94 cm No Primary Care Physician [facility] Work Phone: 04-15-2022 15:52-0400 Body mass index (BMI) [Ratio] 27.4 kg/m2 No Primary Care Physician [facility] Work Phone: 04-15-2022 15:52-0400 Body weight 68.03 kg No Primary Care Physician [facility] Work Phone: 04-15-2022 15:52-0400 Diastolic blood pressure 75 mm[Hg] No Primary Care Physician [facility] Work Phone: 04-15-2022 15:52-0400 Systolic blood pressure 119 mm[Hg] No Primary Care Physician [facility] Work Phone: 03-12-2022 11:54-0400 Body mass index (BMI) [Ratio] 27.4 kg/m2 No Primary Care Physician [facility] Work Phone: 03-12-2022 11:54-0400 Body weight 68.03 kg No Primary Care Physician [facility] Work Phone: 03-12-2022 11:54-0400 Diastolic blood pressure 64 mm[Hg] No Primary Care Physician [facility] Work Phone: 03-12-2022 11:54-0400 Systolic blood pressure 102 mm[Hg] No Primary Care Physician [facility] Work Phone: 02-26-2022 16:45-0400 Body temperature 97.8 [degF] No Primary Care Physician [facility] Work Phone: 02-26-2022 16:45-0400 Diastolic blood pressure 58 mm[Hg] No Primary Care Physician [facility] Work Phone: 02-26-2022 16:45-0400 Heart rate 81 /min No Primary Care Physician [facility] Work Phone: 02-26-2022 16:45-0400 Respiratory rate 16 /min No Primary Care Physician [facility] Work Phone: 02-26-2022 16:45-0400 SaO2% (BldA) [Mass fraction] 98 % No Primary Care Physician [facility] Work Phone: 02-26-2022 16:45-0400 Systolic blood pressure 95 mm[Hg] No Primary Care Physician [facility] Work Phone: 02-25-2022 10:35-0400 Body height 154.94 cm No Primary Care Physician [facility] Work Phone: 02-25-2022 10:35-0400 Body mass index (BMI) [Ratio] 30.2 kg/m2 No Primary Care Physician [facility] Work Phone: 02-25-2022 10:35-0400 Body weight 72.57 kg No Primary Care Physician [facility] Work Phone: 02-22-2022 13:49-0400 Body height 154.94 cm No Primary Care Physician [facility] Work Phone: 02-22-2022 13:49-0400 Body mass index (BMI) [Ratio] 30.2 kg/m2 No Primary Care Physician [facility] Work Phone: 02-22-2022 13:49-0400 Body weight 72.63 kg No Primary Care Physician [facility] Work Phone: 02-22-2022 13:49-0400 Diastolic blood pressure 60 mm[Hg] No Primary Care Physician [facility] Work Phone: 02-22-2022 13:49-0400 Systolic blood pressure 100 mm[Hg] No Primary Care Physician [facility] Work Phone: 02-15-2022 14:07-0400 Body mass index (BMI) [Ratio] 30.2 kg/m2 No Primary Care Physician [facility] Work Phone: 02-15-2022 14:07-0400 Body weight 72.63 kg No Primary Care Physician [facility] Work Phone: 02-15-2022 14:07-0400 Diastolic blood pressure 76 mm[Hg] No Primary Care Physician [facility] Work Phone: 02-15-2022 14:07-0400 Systolic blood pressure 118 mm[Hg] No Primary Care Physician [facility] Work Phone: 02-01-2022 14:03-0400 Body mass index (BMI) [Ratio] 30.2 kg/m2 No Primary Care Physician [facility] Work Phone: 02-01-2022 14:03-0400 Body weight 72.57 kg No Primary Care Physician [facility] Work Phone: 02-01-2022 14:03-0400 Diastolic blood pressure 78 mm[Hg] No Primary Care Physician [facility] Work Phone: 02-01-2022 14:03-0400 Systolic blood pressure 128 mm[Hg] No Primary Care Physician [facility] Work Phone: 01-18-2022 13:58-0400 Body mass index (BMI) [Ratio] 29.7 kg/m2 No Primary Care Physician [facility] Work Phone: 01-18-2022 13:58-0400 Body weight 71.32 kg No Primary Care Physician [facility] Work Phone: 01-18-2022 13:58-0400 Diastolic blood pressure 78 mm[Hg] No Primary Care Physician [facility] Work Phone: 01-18-2022 13:58-0400 Systolic blood pressure 108 mm[Hg] No Primary Care Physician [facility] Work Phone: 01-13-2022 08:15-0400 Body temperature 98.2 [degF] No Primary Care Physician [facility] Work Phone: 01-13-2022 08:15-0400 Diastolic blood pressure 74 mm[Hg] No Primary Care Physician [facility] Work Phone: 01-13-2022 08:15-0400 Heart rate 103 /min No Primary Care Physician [facility] Work Phone: 01-13-2022 08:15-0400 Respiratory rate 14 /min No Primary Care Physician [facility] Work Phone: 01-13-2022 08:15-0400 SaO2% (BldA) [Mass fraction] 97 % No Primary Care Physician [facility] Work Phone: 01-13-2022 08:15-0400 Systolic blood pressure 122 mm[Hg] No Primary Care Physician [facility] Work Phone: 01-06-2022 14:26-0400 Diastolic blood pressure 62 mm[Hg] No Primary Care Physician [facility] Work Phone: 01-06-2022 14:26-0400 Systolic blood pressure 104 mm[Hg] No Primary Care Physician [facility] Work Phone: 01-06-2022 13:05-0400 Body temperature 99.5 [degF] No Primary Care Physician [facility] Work Phone: 01-06-2022 13:05-0400 Heart rate 110 /min No Primary Care Physician [facility] Work Phone: 01-06-2022 13:05-0400 Respiratory rate 15 /min No Primary Care Physician [facility] Work Phone: 01-06-2022 13:05-0400 SaO2% (BldA) [Mass fraction] 98 % No Primary Care Physician [facility] Work Phone: 08-20-2021 17:02-0500 Body temperature 98.4 [degF] No Primary Care Physician [facility] Work Phone: 08-20-2021 17:02-0500 Diastolic blood pressure 78 mm[Hg] No Primary Care Physician [facility] Work Phone: 08-20-2021 17:02-0500 Heart rate 88 /min No Primary Care Physician [facility] Work Phone: 08-20-2021 17:02-0500 Respiratory rate 16 /min No Primary Care Physician [facility] Work Phone: 08-20-2021 17:02-0500 SaO2% (BldA) [Mass fraction] 98 % No Primary Care Physician [facility] Work Phone: 08-20-2021 17:02-0500 Systolic blood pressure 120 mm[Hg] No Primary Care Physician [facility] Work Phone: 08-20-2021 15:15-0500 Body height 154.94 cm No Primary Care Physician [facility] Work Phone: 08-20-2021 15:15-0500 Body mass index (BMI) [Ratio] 26.6 kg/m2 No Primary Care Physician [facility] Work Phone: 08-20-2021 15:15-0500 Body weight 63.9 kg No Primary Care Physician [facility] Work Phone: Encounters Encounter Date Encounter Type Care Provider Facility Start: 01-17-2025 End: 01-17-2025 ambulatory No Primary Care Physician Facility:[facility] Start: 01-17-2025 End: 01-17-2025 ambulatory No Primary Care Physician Facility:[facility] Start: 01-06-2025 End: 01-06-2025 ambulatory No Primary Care Physician Facility:[facility] Start: 12-30-2024 End: 12-30-2024 ambulatory MD NO PRIMARY CARE [facility] Start: 12-08-2024 End: 12-08-2024 ambulatory No Primary Care Physician Facility:[facility] Start: 12-07-2024 End: 12-07-2024 ambulatory Albaro Velvet Harvey Facility:[facility] Start: 11-30-2024 End: 11-30-2024 ambulatory [facility] Start: 11-29-2024 End: 11-29-2024 ambulatory EDUARDO Limon BATES [facility] Start: 11-09-2024 End: 11-09-2024 ambulatory Saritha Salgado Facility:[facility] Start: 11-09-2024 End: 11-09-2024 ambulatory Saritha Salgado Facility:[facility] Start: 10-25-2024 End: 10-25-2024 ambulatory [facility] Start: 10-20-2024 End: 10-20-2024 ambulatory Saritha Salgado Facility:[facility] Start: 10-19-2024 End: 10-19-2024 ambulatory No Primary Care Physician Facility:[facility] Start: 10-06-2024 End: 10-06-2024 ambulatory No Primary Care Physician Facility:[facility] Start: 10-05-2024 End: 10-05-2024 Subsequent hospital visit by physician Ashley Villarreal MD Work Phone: [facility] Comment on above: History of Start: 10-05-2024 End: 10-06-2024 ambulatory MD NO PRIMARY CARE [facility] Start: 09-27-2024 End: 09-27-2024 ambulatory SARITHA Rosette SALGADO [facility] Start: 09-26-2024 End: 09-26-2024 Emergency department patient visit No Primary Care Physician Facility:[facility] Start: 09-15-2024 End: 09-15-2024 ambulatory No Primary Care Physician Facility:[facility] Start: 09-15-2024 End: 09-15-2024 ambulatory No Primary Care Physician Facility:[facility] Start: 09-08-2024 End: 09-08-2024 ambulatory No Primary Care Physician Facility:[facility] Start: 08-30-2024 End: 08-30-2024 ambulatory No Primary Care Physician Facility:[facility] Start: 08-23-2024 End: 08-23-2024 ambulatory No Primary Care Physician Facility:[facility] Start: 08-23-2024 End: 08-23-2024 ambulatory No Primary Care Physician Facility:[facility] Start: 08-17-2024 End: 08-17-2024 ambulatory No Primary Care Physician Facility:[facility] Start: 08-01-2024 End: 08-01-2024 ambulatory No Primary Care Physician Facility:[facility] Start: 07-30-2024 End: 07-30-2024 ambulatory No Primary Care Physician Facility:[facility] Start: 07-28-2024 End: 07-28-2024 ambulatory No Primary Care Physician Facility:[facility] Start: 07-06-2024 End: 07-06-2024 ambulatory No Primary Care Physician Facility:[facility] Start: 05-27-2024 ambulatory No Primary Car e Physician Facility:[facility] Start: 05-24-2024 End: 05-24-2024 ambulatory No Primary Care Physician Facility:[facility] Start: 05-13-2024 End: 05-13-2024 ambulatory Reginaldo Saravia Facility:[facility] Start: 04-28-2024 End: 04-28-2024 ambulatory No Primary Care Physician Facility:[facility] Start: 04-16-2024 End: 04-16-2024 ambulatory No Primary Care Physician Facility:[facility] Start: 04-16-2024 ambulatory No Primary Car e Physician Facility:[facility] Start: 02-23-2024 End: 02-23-2024 ambulatory MD NO PRIMARY CARE [facility] Start: 02-23-2024 End: 02-23-2024 Subsequent hospital visit by physician Margaret TERRY Work Phone: [facility] Comment on above: Arrived Start: 02-19-2024 End: 02-19-2024 ambulatory No Primary Care Physician Facility:[facility] Start: 02-12-2024 End: 02-12-2024 ambulatory Saritha Salgado Facility:[facility] Start: 02-11-2024 End: 02-11-2024 ambulatory Saritha Salgado Facility:[facility] Start: 02-09-2024 End: 02-09-2024 ambulatory No Primary Care Physician Facility:[facility] Start: 02-07-2024 End: 02-07-2024 ambulatory No Primary Care Physician Facility:[facility] Start: 06-17-2023 Non-patient / Non-visit No Primary Care Physician [facility] Start: 06-17-2023 End: 06-17-2023 Admission to same day surgery center No Primary Care Physician [facility] Start: 06-17-2023 End: 06-17-2023 ambulatory No Primary Care Physician [facility] Work Phone: Start: 06-05-2023 Registered Referred No Primary Care Physician [facility] Start: 05-26-2023 End: 05-26-2023 Patient encounter procedure No Primary Care Physician [facility] Work Phone: Start: 05-26-2023 End: 05-26-2023 Patient encounter procedure No Primary Care Physician [facility] Work Phone: Start: 05-15-2023 End: 05-15-2023 ambulatory No Primary Care Physician [facility] Work Phone: Start: 05-15-2023 End: 05-15-2023 Patient encounter procedure No Primary Care Physician [facility]ound, [facility] Work Phone: Start: 04-28-2023 End: 04-28-2023 ambulatory No Primary Care Physician [facility] Work Phone: Start: 04-28-2023 End: 04-28-2023 Patient encounter procedure No Primary Care Physician [facility]Laboratory Work Phone: Start: 04-17-2023 End: 04-17-2023 Patient encounter procedure No Primary Care Physician [facility] Work Phone: Start: 03-18-2023 End: 03-18-2023 ambulatory No Primary Care Physician [facility] Work Phone: Start: 03-18-2023 End: 03-18-2023 Patient encounter procedure No Primary Care Physician [facility] Start: 03-12-2023 End: 03-12-2023 ambulatory No Primary Care Physician [facility] Work Phone: Start: 03-12-2023 End: 03-12-2023 Patient encounter procedure No Primary Care Physician [facility] Work Phone: Start: 03-05-2023 End: 03-05-2023 ambulatory No Primary Care Physician [facility] Work Phone: Start: 03-05-2023 End: 03-05-2023 Patient encounter procedure No Primary Care Physician [facility] Work Phone: Start: 03-04-2023 End: 03-04-2023 Patient encounter procedure No Primary Care Physician [facility] Work Phone: Start: 02-24-2023 End: 02-24-2023 Patient encounter procedure No Primary Care Physician [facility] Work Phone: Start: 02-19-2023 End: 02-19-2023 ambulatory No Primary Care Physician [facility] Work Phone: Start: 02-19-2023 End: 02-19-2023 Patient encounter procedure No Primary Care Physician [facility] Start: 02-13-2023 End: 02-13-2023 Patient encounter procedure No Primary Care Physician [facility] Work Phone: Start: 02-12-2023 End: 02-12-2023 ambulatory No Primary Care Physician [facility] Work Phone: Start: 02-12-2023 End: 02-12-2023 Patient encounter procedure No Primary Care Physician [facility] Work Phone: Start: 02-05-2023 End: 02-05-2023 ambulatory No Primary Care Physician [facility] Work Phone: Start: 02-05-2023 End: 02-05-2023 Patient encounter procedure No Primary Care Physician [facility] Work Phone: Start: 01-29-2023 End: 01-29-2023 ambulatory No Primary Care Physician [facility] Work Phone: Start: 01-29-2023 End: 01-29-2023 Patient encounter procedure No Primary Care Physician [facility] Work Phone: Start: 01-26-2023 End: 01-26-2023 ambulatory No Primary Care Physician [facility] Work Phone: Start: 01-26-2023 End: 01-26-2023 Patient encounter procedure No Primary Care Physician [facility] Work Phone: Start: 01-23-2023 End: 01-23-2023 ambulatory No Primary Care Physician [facility] Work Phone: Start: 01-23-2023 End: 01-23-2023 Patient encounter procedure No Primary Care Physician [facility] Work Phone: Start: 01-22-2023 End: 01-22-2023 ambulatory No Primary Care Physician [facility] Work Phone: Start: 01-22-2023 End: 01-22-2023 Patient encounter procedure No Primary Care Physician [facility] Work Phone: Start: 01-16-2023 End: 01-16-2023 ambulatory No Primary Care Physician [facility] Work Phone: Start: 01-16-2023 End: 01-16-2023 Patient encounter procedure No Primary Care Physician [facility] Work Phone: Start: 01-14-2023 End: 01-14-2023 ambulatory No Primary Care Physician [facility] Work Phone: Start: 01-14-2023 End: 01-14-2023 Patient encounter procedure No Primary Care Physician [facility], [facility] Work Phone: Start: 01-14-2023 End: 01-14-2023 ambulatory No Primary Care Physician [facility] Work Phone: Start: 01-14-2023 End: 01-14-2023 Patient encounter procedure No Primary Care Physician [facility] Work Phone: Start: 01-12-2023 End: 01-12-2023 Patient encounter procedure No Primary Care Physician [facility] Work Phone: Start: 11-14-2022 End: 11-14-2022 Patient encounter procedure No Primary Care Physician [facility] Work Phone: Start: 11-04-2022 End: 11-04-2022 ambulatory No Primary Care Physician [facility] Work Phone: Start: 11-04-2022 End: 11-04-2022 Patient encounter procedure No Primary Care Physician [facility]Laboratory, Specimen Start: 10-31-2022 End: 10-31-2022 ambulatory No Primary Care Physician [facility] Work Phone: Start: 10-31-2022 End: 10-31-2022 Patient encounter procedure No Primary Care Physician [facility] Start: 10-17-2022 End: 10-17-2022 Patient encounter procedure No Primary Care Physician [facility] Start: 09-23-2022 End: 09-23-2022 Patient encounter procedure No Primary Care Physician [facility] Start: 09-19-2022 End: 09-19-2022 Patient encounter procedure No Primary Care Physician [facility] Start: 09-09-2022 End: 09-09-2022 Patient encounter procedure No Primary Care Physician [facility] Start: 09-09-2022 End: 09-09-2022 Patient encounter procedure No Primary Care Physician [facility] Start: 08-02-2022 End: 08-02-2022 Patient encounter procedure No Primary Care Physician [facility] Start: 05-24-2022 End: 05-24-2022 ambulatory No Primary Care Physician [facility] Work Phone: Start: 05-24-2022 End: 05-24-2022 Patient encounter procedure No Primary Care Physician [facility] Start: 05-13-2022 End: 05-13-2022 ambulatory No Primary Care Physician [facility] Work Phone: Start: 05-13-2022 End: 05-13-2022 Patient encounter procedure No Primary Care Physician [facility]Laboratory, Specimen Start: 05-13-2022 End: 05-13-2022 Patient encounter procedure No Primary Care Physician [facility] Start: 04-30-2022 End: 04-30-2022 ambulatory No Primary Care Physician [facility] Work Phone: Start: 04-30-2022 End: 04-30-2022 Patient encounter procedure No Primary Care Physician [facility] Start: 04-15-2022 End: 04-15-2022 ambulatory No Primary Care Physician [facility] Work Phone: Start: 04-15-2022 End: 04-15-2022 Patient encounter procedure No Primary Care Physician [facility] Start: 04-10-2022 End: 04-10-2022 Patient encounter procedure No Primary Care Physician [facility] Start: 03-12-2022 End: 03-12-2022 Patient encounter procedure No Primary Care Physician [facility] Start: 02-26-2022 Non-patient / Non-visit No Primary Care Physician [facility] Start: 02-25-2022 Non-patient / Non-visit No Primary Care Physician [facility] Start: 02-25-2022 End: 02-26-2022 Evaluation and management of inpatient No Primary Care Physician [facility] Start: 02-25-2022 End: 02-25-2022 Patient encounter procedure No Primary Care Physician [facility] Start: 02-25-2022 End: 02-25-2022 Patient encounter procedure No Primary Care Physician [facility] Start: 02-22-2022 End: 02-22-2022 Patient encounter procedure No Primary Care Physician [facility] Start: 02-22-2022 End: 02-22-2022 Patient encounter procedure No Primary Care Physician [facility]Laboratory, Specimen Start: 02-18-2022 End: 02-18-2022 Patient encounter procedure [facility] Start: 02-15-2022 End: 02-15-2022 Patient encounter procedure No Primary Care Physician [facility] Start: 02-11-2022 End: 02-11-2022 Patient encounter procedure No Primary Care Physician [facility] Start: 02-04-2022 End: 02-04-2022 Patient encounter procedure No Primary Care Physician [facility] Start: 02-01-2022 End: 02-01-2022 Patient encounter procedure No Primary Care Physician [facility] Start: 01-29-2022 End: 01-29-2022 Patient encounter procedure No Primary Care Physician [facility] Start: 01-25-2022 End: 01-25-2022 Patient encounter procedure No Primary Care Physician [facility] Start: 01-18-2022 End: 01-18-2022 Patient encounter procedure No Primary Care Physician [facility] Start: 01-13-2022 End: 01-13-2022 Patient encounter procedure No Primary Care Physician [facility] Start: 01-06-2022 End: 01-06-2022 Patient encounter procedure No Primary Care Physician [facility] Start: 12-25-2021 End: 12-25-2021 Patient encounter procedure No Primary Care Physician [facility] Start: 12-10-2021 End: 12-10-2021 Patient encounter procedure No Primary Care Physician [facility] Start: 12-07-2021 End: 12-07-2021 Patient encounter procedure No Primary Care Physician [facility], [facility] case consultant Off Start: 11-27-2021 Non-patient / Non-visit No Primary Care Physician [facility] Start: 11-26-2021 End: 11-26-2021 Patient encounter procedure No Primary Care Physician [facility] Start: 11-14-2021 End: 11-14-2021 Patient encounter procedure No Primary Care Physician [facility] Start: 11-06-2021 End: 11-06-2021 Patient encounter procedure No Primary Care Physician [facility] Start: 09-17-2021 End: 09-17-2021 Patient encounter procedure No Primary Care Physician [facility] Start: 09-07-2021 End: 09-07-2021 Patient encounter procedure No Primary Care Physician [facility], [facility] case [facility] Off Start: 08-22-2021 End: 08-22-2021 Patient encounter procedure No Primary Care Physician [facility], [facility] case [facility] Off Start: 08-20-2021 End: 08-20-2021 Emergency department patient visit No Primary Care Physician [facility]Emergency Department Procedures Date Procedure Procedure Detail Performing Clinician Start: 02-23-2024 Hepatitis b surf antibody hbsab Margaret Carmichael [employer] Work Phone: Start: 06-17-2023 Laparoscopy No Primary Care Physician Start: 05-15-2023 US scan of thyroid No Primary Care Physician Start: 01-22-2023 Transvaginal obstetric ultrasonography No Primary Care Physician Start: 01-14-2023 Transvaginal obstetric ultrasonography No Primary Care Physician Start: 04-30-2022 US scan of thyroid No Primary Care Physician Start: 01-25-2022 Ultrasound scan for growth No Primary Care Physician Start: 08-20-2021 Urine culture No Primary Care Physician Group B Streptococcu s Culture No Primary Care Physician H/O: section History of delivery Margaret Carmichael [employer] Work Phone: Plan of Treatment Date Care Activity Detail Author Start: 10-25-2024 End: 10-25-2024 Professional / ancillary services management 10/25/2024 2:45 PM EDT Ancillary Procedure Visit [place] [address] US FU 4 weeks [facility] Comment on above: US FU 4 weeks Start: 03-21-2024 COVID-19 (2023-08 season) COVID-19 ( season) [facility] Start: 03-21-2024 FLU (#1) FLU (#1) [facility] Start: 06-17-2023 Patient discharge [facility] Start: 06-17-2023 Ambulation without limitation [facility] Start: 06-17-2023 Medical regimen orde rs management [facility] Start: 06-17-2023 Medication education [facility] Start: 06-17-2023 Procedure discontinued [facility] Start: 06-17-2023 Taking patient vital signs [facility] Start: 06-17-2023 Vital signs measurements [facility] Start: 06-17-2023 [facility] Start: 03-21-2023 COVID-19 (2022-08 season) COVID-19 () [facility] Start: 02-26-2022 [facility] Work Phone: Start: 02-26-2022 Application of abdom inal corset [facility] Work Phone: Start: 02-26-2022 Patient discharge [facility] Work Phone: Start: 02-26-2022 Lupus anticoagulant assay [facility] Work Phone: Start: 02-26-2022 [facility] Work Phone: Start: 02-25-2022 End: 02-26-2022 [facility] Work Phone: Start: 02-25-2022 Administration of medication [facility] Work Phone: Start: 02-25-2022 Ambulation therapy management [facility] Work Phone: Start: 02-25-2022 Application of device [facility] Work Phone: Start: 02-25-2022 Application of inter mittent pneumatic compression device [facility] Work Phone: Start: 02-25-2022 Assessment of risk o f venous thromboembolism [facility] Work Phone: Start: 02-25-2022 Catheterization of vein [facility] Work Phone: Start: 02-25-2022 Deep breathing and c oughing exercises [facility] Work Phone: Start: 02-25-2022 Exercises [facility] Work Phone: Start: 02-25-2022 Incentive spirometry [facility] Work Phone: Start: 02-25-2022 Measuring intake and output [facility] Work Phone: Start: 02-25-2022 Notification of physician [facility] Work Phone: Start: 02-25-2022 Procedure discontinued [facility] Work Phone: Start: 02-25-2022 Provision of activit y privileges [facility] Work Phone: Start: 02-25-2022 Vital signs measurements [facility] Work Phone: Start: 02-25-2022 Wound care [facility] Work Phone: Start: 02-25-2022 Application of abdom inal corset [facility] Work Phone: Start: 02-25-2022 Admission procedure [facility] Work Phone: Start: 02-25-2022 Consultation [facility] Work Phone: Start: 02-25-2022 Streptococcus agalac tiae [Presence] in Unspecified specimen by Organism specific culture [facility] Work Phone: Start: 02-17-2012 Microscopic observat ion [Identifier] in Cervix by Cyto stain Pap Smear [facility] Start: 2010 Hepatitis B (1 of 3 - 19+ 3-dose series) Hepatitis B (1 of 3 - 19+ 3-dose series) [facility] Start: 2007 MenB (1 of 2 - MenB 2-Dose Series Bexsero) MenB (1 of 2 - MenB 2-Dose Series Bexsero) [facility] Start: 02-17-2004 Varicella (1 of 2 - 13+ 2-dose series) Varicella (1 of 2 - 13+ 2-dose series) [facility] Start: 1998 Tetanus Diphtheria a nd Pertussis Vaccines (1 - Tdap) Tetanus Diphtheria and Pertussis Vaccines (1 - Tdap) [facility] Start: 02-17-1992 MMR (1 of 1 - Standa rd series) MMR (1 of 1 - Standard series) [facility] Beta 2 glycoprotein 1 IgA Ab [Presence] in Serum [facility] Work Phone: Beta 2 glycoprotein 1 IgG Ab [Presence] in Serum [facility] Work Phone: Beta 2 glycoprotein 1 IgM Ab [Presence] in Serum [facility] Work Phone: Beta-hemolytic Strep tococcus culture [facility] Work Phone: Cardiolipin IgA Ab [Units/volume] in Serum by Immunoassay [facility] Work Phone: Cardiolipin IgG Ab [Units/volume] in Serum or Plasma [facility] Work Phone: Cardiolipin IgM Ab [Units/volume] in Serum or Plasma [facility] Work Phone: Choriogonadotropin ( test) [Presence] in Serum or Plasma [facility] Cytomegalovirus IgG antibody measurement [facility] Work Phone: Cytomegalovirus IgM antibody assay [facility] Work Phone: Group B Streptococcu s Culture Group B Streptococcus Culture [facility] Work Phone: Lupus anticoagulant neutralization platelet [Time] in Platelet poor plasma by Coagulation assay [facility] Work Phone: End: 10-05-2024 Miscellaneous Sendout: DIANA Denny [facility] Work Phone: Comment on above: 1 Occurrences starti ng 10/05/2024 until 10/05/2024 Partial thromboplast in time ratio [facility] Work Phone: Parvovirus B19 IgG A b [Units/volume] in Serum by Immunoassay [facility] Work Phone: Parvovirus B19 IgM A b [Units/volume] in Serum by Immunoassay [facility] Work Phone: Patient Education Urinary Tract Infections in Women ED Hyperemesis Gravidarum [facility] Work Phone: Patient referral [facility] Work Phone: Streptococcus agalac tiae [Presence] in Unspecified specimen by Organism specific culture [facility] Work Phone: Thrombin time [facility] Work Phone: Toxoplasma gondii Ig G Ab [Units/volume] in Serum [facility] Work Phone: Toxoplasma gondii Ig M Ab [Units/volume] in Serum [facility] Work Phone: US Thyroid gland [facility] Work Phone: Immunizations Immunization Date Immunization Notes Care Provider Deyanira correa 05-13-2023 influenza, injectabl e, quadrivalent, preservative free No Primary Care Physician [facility] 06-20-2022 influenza, injectabl e, quadrivalent, preservative free No Primary Care Physician [facility] 06-20-2022 influenza, seasonal, injectable No Primary Care Physician [facility] 01-18-2022 tetanus toxoid, redu itzel diphtheria toxoid, and acellular pertussis vaccine, adsorbed No Primary Care Physician [facility] 04-25-2021 influenza, injectabl e, quadrivalent, preservative free No Primary Care Physician [facility] 04-25-2021 influenza, seasonal, injectable No Primary Care Physician [facility] 04-05-2021 Covid (Moderna) No Primary C are Physician [facility] 03-08-2021 Covid (Moderna) No Primary C are Physician [facility] 04-18-2020 influenza, injectabl e, quadrivalent, preservative free No Primary Care Physician [facility] 04-18-2020 influenza, seasonal, injectable No Primary Care Physician [facility] 06-16-2019 influenza, injectabl e, quadrivalent, preservative free No Primary Care Physician [facility] 06-16-2019 influenza, seasonal, injectable No Primary Care Physician [facility] 04-17-2018 influenza, injectabl e, quadrivalent, preservative free No Primary Care Physician [facility] 04-17-2018 influenza, seasonal, injectable No Primary Care Physician [facility] 05-14-2017 influenza, injectabl e, quadrivalent, preservative free No Primary Care Physician [facility] 05-14-2017 influenza, seasonal, injectable No Primary Care Physician [facility] 05-08-2016 influenza, injectabl e, quadrivalent, preservative free No Primary Care Physician [facility] 05-08-2016 influenza, seasonal, injectable No Primary Care Physician [facility] 06-01-2015 influenza, injectabl e, quadrivalent, preservative free No Primary Care Physician [facility] 06-01-2015 influenza, seasonal, injectable No Primary Care Physician [facility] 10-03-2014 tetanus toxoid, redu itzel diphtheria toxoid, and acellular pertussis vaccine, adsorbed No Primary Care Physician [facility] 09-21-2014 influenza, injectabl e, quadrivalent, preservative free No Primary Care Physician [facility] 09-21-2014 influenza, seasonal, injectable No Primary Care Physician [facility] 05-24-2005 hepatitis B vaccine, pediatric or pediatric/adolescent dosage No Primary Care Physician [facility] Payers Date Payer Category Payer Unknown [id number] 2024 Unknown [id number] 2024 Unknown [id number] 2024 Unknown [id number] 2023 Self-pay [id number] 1991 Unknown [id number] 1991 Unknown [id number] 2. [id number] 1991 Unknown [id number] 2. 840.1.394003.3.579.247 1990 Unknown [id number] 2. 840.1.469356.3.579.2 1990 Unknown [id number] 2. 840.1.063789.3.579.2 1990 Unknown [id number] 2 840.1.250283.3.579.2 1990 Unknown [id number] 2. 840.1.664201.3.579.2 1990 Unknown [id number] 840.1.775547.3.579.2479 Private Health Insurance [id number] Unknown [id number] Unknown [id number] Unknown [id number] Unknown [id number] Unknown [id number] 2.16.8 40.1.463996.3.579.2.462 Unknown [id number] 2.16.8 40.1.110880.3.579.2.462 Unknown [id number] 2.16.8 40.1.314761.3.579.2.462 Unknown [id number] 2.16.8 40.1.531655.3.579.2.462 Unknown [id number] 2.16.8 40.1.567062.3.579.2.462 Unknown [id number] 2.16.8 40.1.383599.3.579.2.462 Unknown [id number] 2.16.8 40.1.280184.3.579.2.462 Unknown [id number] 2.16.8 40.1.310040.3.579.2.462 Unknown [id number] 2.16.8 40.1.835639.3.579.2.462 Unknown [id number] 2.16.8 40.1.812937.3.579.2.462 Unknown [id number] 2.16.8 40.1.778651.3.579.2.462 Unknown [id number] 2.16.8 40.1.129533.3.579.2.462 Unknown [id number] 2.16.8 40.1.565793.3.579.2.462 Unknown [id number] 2.16.8 40.1.551531.3.579.2.462 Unknown [id number] 2.16.8 40.1.339183.3.579.2.462 Unknown [id number] 2.16.8 40.1.161789.3.579.2.462 Unknown [id number] 2.16.8 40.1.607286.3.579.2.462 Unknown [id number] 2.16.8 40.1.730353.3.579.2.462 Unknown [id number] 2.16.8 40.1.478184.3.579.2.462 Unknown [id number] 2.16.8 40.1.081364.3.579.2.462 Unknown [id number] 2.16.8 40.1.943836.3.579.2.462 Unknown [id number] 2.16.8 40.1.820989.3.579.2.462 Unknown [id number] 2.16.8 40.1.983583.3.579.2.462 Unknown [id number] 2.16.8 40.1.754769.3.579.2.462 Unknown [id number] 2.16.8 40.1.920446.3.579.2.462 Unknown [id number] 2.16.8 40.1.456932.3.579.2.462 Unknown [id number] 2.16.8 40.1.430694.3.579.2.462 Unknown [id number] 2.16.8 40.1.867174.3.579.2.462 Unknown [id number] 2.16.8 40.1.770631.3.579.2.462 Unknown [id number] 2.16.8 40.1.110335.3.579.2.462 Unknown [id number] 2.16.8 40.1.189963.3.579.2.462 Unknown [id number] 2.16.8 40.1.822021.3.579.2.462 Unknown [id number] 2.16.8 40.1.978457.3.579.2.462 Unknown [id number] 2.16.8 40.1.960559.3.579.2.462 Unknown [id number] 2.16.8 40.1.337307.3.579.2.462 Unknown [id number] 2.16.8 40.1.565234.3.579.2.462 Social History Date Type Detail Facility [facility] Work Phone: Start: 12-10-2021 End: 05-26-2023 Tobacco smoking status NDIS Unknown if ever smoked [facility] Start: 12-05-2019 None [facility] Start: 12-11-2020 Non-smoker [facility] Start: 1990 Sex Assigned At Female W [facility] Start: 05-08-2022 Tobacco smoking status NDIS Never smoked tobacco [facility] Start: 05-08-2022 Tobacco use and exposure Smokeless tobacco non-user [facility] Start: 05-08-2022 End: 09-27-2024 Alcoholic beverage intake Lifetime non-drinker (finding) [facility] Start: 05-08-2022 End: 09-27-2024 History of Social function [facility] Start: 05-08-2022 End: 09-27-2024 Tobacco use panel [facility] Start: 1990 Sex assigned at Not on file A [facility] Start: 07-25-2024 [facility] NEGATED: Highlighted row [facility] NEGATED: Highlighted rowStart: NINF History of tobacco use Passive smoker [facility] Goals Date Patient Goal Desired Activity /State Functional Status Date Assessment Result Facility 02-25-2022 Functional status Activity Ability Post O p [facility] Work Phone: Mental Status Date Assessment Result Facility 06-17-2023 Cognitive function Level Of Cons ciousness Awake;Drowsy [facility] Work Phone: 06-17-2023 Cognitive function Patient Orien tation Person;Place;Time [facility] Work Phone: Clinical Notes 07-24-2021 to 11-30-2024 Note Date & Type Note Facility 11-30-2024 Note [facility] pital [facility] Referring Provider Saritha Salgado MD [address] [address] ASSESSMENT AND RECOMMENDATIONS Patient comes today for a follow-up consultation regarding her history of 37-week demise with pulmonary hemorrhage. Patient today is without complaints. Today, we took the time to extensively review her obstetrical records together while she was in the office. Patient reports that in the concerning , she presented to [facility]. She underwent a period of monitoring which was noted to not be reassuring. She was delivered urgently via delivery with an unfortunate passing of that baby. Notably, she did have COVID approximately 6 weeks prior to her presentation. She reports that the had otherwise been uncomplicated. Her testing included TORCH testing which was negative. We recently completed NAIT testing which was also negative. Review of the records indicate that there is a -maternal hemorrhage, with KB consistent with 127.5 mL of blood. This was a significant hemorrhage. Review of the placental pathology indicates there are findings consistent with this maternal hemorrhage, and there were some findings that are consistent with COVID associated hemorrhage. This last point was a new part of the discussion with the patient. I have seen this pattern of hemorrhage coincident with COVID in the past. I agree with my partner that this is an event unlikely to recur. She did have a normal detailed anatomy ultrasound today. I have of course recommended full vaccination for both maternal and benefit. I would not recommend changes to the pattern of obstetrical care at this time. She has been released from care in this office in favor of the more than capable care provided by her primary grade setter. Romy [facility] Maternal- Medicine SUBJECTIVE Yessi Anne is a 34 y.o. who presents at 20w3d for discussion of prior after 37-week delivery. She presents without other complaints. She otherwise denies LOF/CTX/VB. She is without preE complaints. We performed a detailed ROS including screening for general, gastrointestinal, respiratory, cardiac, renal, urological symptoms and the patient has no pertinent positives on screen. OB History Para Term AB Living 6 2 2 0 3 1 SAB IAB Ectopic Multiple Live Births 1 0 2 0 2 # Outcome Date GA Lbr Jimmie/2nd Weight Sex Type Anes PTL Lv 6 Current 5 Ectopic 2023 Comments: left side removed 4 Ectopic 2022 Comments: methotrexate 3 Term 02/25/22 37w0d 3 kg M CS-LTranv Gen ND Comments: Stat LTCS, transported to [facility] NICU with anemia and passed of pulmonary hemorrhage Complications: Category II heart rate tracing during labor and delivery 2 Term 12/05/19 39w0d 2.75 kg F Vag-Spont EPI N MARK Comments: SGA,GDMA1 1 SAB 2018 Problem List[1] Past Medical History: Diagnosis Date Anemia 2nd Anxiety wellbutrin and atarax as needed Depression Gestational diabetes mellitus (GDM) First - GDMA1 Thyroid disease enlarged thyroid; since 2021- gets ultrasounds yearly- last ultrasound showed no growth; no additional ultrasound needed until 2025. Biopsy was in 2021 and was negative. Uncomplicated asthma no meds;stable at this time. Past Surgical History: Procedure Laterality Date SECTION 2021 CYST REMOVAL 2009 on face LAPAROSCOPY After first ectopic in 2022 SALPINGECTOMY Left 2023 TONSILLECTOMY AND ADENOIDECTOMY Bilateral as a child Current Medications[2] Allergies[3] Social History Socioeconomic History Marital status: Spouse name: Not on file Number of children: Not on file Years of education: Not on file Highest education level: Not on file Occupational History Not on file Tobacco Use Smoking status: Never Passive exposure: Never Smokeless tobacco: Never Substance and Sexual Activity Alcohol use: Never Drug use: Never Sexual activity: Not on file Other Topics Concern Not on file Social History Narrative Not on file Social Drivers of Health Food Insecurity: Not on file Transportation Needs: Not on file Housing Stability: Not on file Family History Problem Relation Age of Onset High Blood Pressure Mother Thyroid Disease Mother Asthma Mother High Blood Pressure Father Mental Illness Sister depression and anxiety Mental Illness Maternal Grandmother High Blood Pressure Maternal Grandmother Heart Disease Maternal Grandmother hepertropic cardiomyopathy Diabetes Mellitus II Maternal Grandmother Cardiomyopathy Maternal Grandmother Macular Degen Maternal Grandmother High Blood Pressure Maternal Grandfather Cancer Maternal Grandfather prostate, lung Cancer Paternal Grandmother High Blood Pressure Paternal (more content not included)... [facility] 02-12-2024 Note [facility] Medical Records Department [address] [place] [address] History Physical Exam 02/12/24 0514 MR#: [id number] Acct: [id number] Name: YESSI ANNE Rep #: [id number] : 1990 33 From: Saritha Salgado MD PCP: Care Physician,No Primary Status:[facility] Location: [address] HPI - General HPI Narrative YESSI ANNE, is a 33 F who presents with acute onset pelvic pain that awoke her suddenly at 1 am no vaginal bleeding. she has had abnormally rising quants but hadn't had pain prior to this morning or bleeding. she should be 5-6 weeks . [facility] Medical History Wears glasses Wears contact lenses Depression Anxiety Thyroid disease Ectopic Anemia Asthma Non-smoker delivery delivered Decreased movements in third trimester Abnormal Pap smear of cervix Right foot sprain Right ankle sprain Frequent headaches Cyst of face Sprain of right hand Right wrist sprain SGA (small for gestational age), , affecting care of mother, antepartum Gestational diabetes 39 weeks gestation of Asthma Acute wheezy bronchitis Home Medications ???Medication ???Instructions ???Recorded ???Last Taken ???Type norgestimate 0.25 mg-ethinyl 1 tab PO QDAY #28 tabs 10/21/23 Unknown Rx estradiol 35 mcg tablet (Sprintec (28)) Allergy/AdvReac Type Severity Reaction Status Date / Time No Known Allergies Allergy Verified 02/12/24 01:56 Family History Grandmother Breast cancer Lung cancer Father Hypertension Mother Hypertension Thyroid disorder Asthma Grandfather Colon cancer Lung cancer Mother Diabetes Sister Depression Surgical History H/O laparoscopy History of tonsillectomy Social History household members: spouse and children housing: house current occupational status: employed current occupation: [employer] pets and animals: Yes Smoking Status: Never smoker alcohol intake: never substance use type: does not use what type of physical activity do you participate in: none do you feel safe at home: Yes additional social history: - Rod ROS Constitutional Constitutional: Reports systems reviewed and no addt'l complaints, except as documented; Denies as per HPI, change in weight, fatigue, fever(s), malaise, weakness or other Eyes Eyes: Reports systems reviewed and no addt'l complaints, except as documented; Denies as per HPI, change in vision or other ENT HEENT: Reports systems reviewed and no addt'l complaints, except as documented Respiratory/Chest Respiratory/Chest: Reports systems reviewed and no addt'l complaints, except as documented Gastrointestinal Gastrointestinal: Reports systems reviewed and no addt'l complaints, except as documented and as per HPI Genitourinary Genitourinary: Reports as per HPI Musculoskeletal Musculoskeletal: Reports systems reviewed and no addt'l complaints, except as documented Neurologic Neurologic: Reports systems reviewed and no addt'l complaints, except as documented Psychiatric Psychiatric: Reports systems reviewed and no addt'l complaints, except as documented Endocrine Endocrinology: Reports systems reviewed and no addt'l complaints, except as documented Hematologic/Lymphatic Hematologic/Lymphatic: Reports systems reviewed and no addt'l complaints, except as documented Vital Signs Vital Signs Vital Signs: 02/12/24 01:55 02/12/24 03:55 02/12/24 04:52 Temperature 98.6 F 98.8 F Temperature Source Oral Pulse Rate 83 70 80 Respiratory Rate 16 16 20 H Blood Pressure 117/64 102/62 103/60 Blood Pressure Mean 81 75 74 Blood Pressure Source Blood Pressure Position Blood Pressure Location Pulse Ox 95 97 97 Oxygen Delivery Method Room Air Room Air 02/12/24 04:52 02/12/24 05:00 Temperature 98.8 F Temperature Source Oral Pulse Rate 67 75 Respiratory Rate 18 16 Blood Pressure 103/60 110/85 H Blood Pressure Mean 74 93 Blood Pressure Source Monitor Blood Pressure Position Semi-Fowlers Blood Pressure Location Left Arm Pulse Ox 98 97 Oxygen Delivery Method Room Air Room Air Weight Weight: 171 lb 15.369 oz Body Mass Index (BMI) 32.5 Physical Exam Const alert, oriented x3 and no apparent distress HEENT normocephalic Head and Scalp: atraumatic Eyes EOMs intact bilaterally and conjunctivae normal Neck full ROM, no lymphadenopathy, supple and thyroid normal General: trachea midline Lymph Lymphatic: no lymphadenopathy noted Resp normal respiratory effort, no retracti (more content not included)... [facility] 06-17-2023 Discharge summary Note Date/Time June 17, 2023 3:56pm [facility] Medical Records Department [address] [place] [address] Instructions for Home/Discharge Instructions 06/17/23 1556 MR#: [id number] Acct: [id number] Name: YESSI ANNE Rep #:[id number] : 1990 33 From: Analia Mcgregor DO PCP: Care Physician,No Primary Status :[facility] Discharge Instructions Diet Discharge Diet: No restrictions Activity Discharge Activity: Return to Normal Activity, May Not Drive (for two weeks or while taking narcotic pain medications.), May Shower and May Take a Tub Bath (in7 days) May resume sexual activity in: 1 week Weight Bearing Status: Full weight bearing Dressing / Incision Call your doctor if you observe: Using more than 1 pad per hour, Shortness of breath, Chest pain and Uncontrolled pain Suture Line Care: Avoid Pulling/Pushing and Avoid Pinching/Bending Remove Dressing in: 1 week (if present) Cleanse incision/area with: Soap & Water and Keep Dressing Clean & Dry Follow Up Care Please Follow Up With: Analia Mcgregor DO When: Call to make an appointment with your doctor for a follow up incision check in 1-2 weeks. Test Results: Test results from this visit will be discussed in further detail at your follow-up appointment, if applicable. Discharge Plan Admission Primary Reason for Your Visit: laparoscopy Attending Provider: Analia Mcgregor Primary Care Provider: Care Physician,No Primary Discharge Orders/Prescriptions Prescriptions: New naproxen 500 mg tablet 500 mg PO BID PRN (Reason: pain) Qty: 30 0RF Continued lorazepam [Ativan] 0.5 mg tablet 0.5 mg PO TID PRN (Reason: anxiety) Qty: 30 0RF folic acid 20 mg capsule 20 mg PO DAILY naproxen 500 mg tablet 500 mg PO Q12H PRN (Reason: pain) Rx Instructions: administer with food or milk citalopram 20 mg tablet 20 mg PO DAILY Qty: 90 3RF Referrals / Follow Up: Care Physician,No Primary [Primary Care Provider] - Disposition Disposition (needs filled in before D/C Order can be placed): Home, Self Care 06/17/23 1557<Electronically signed by Analia Mcgregor DO>Analia Mcgregor DO CC: No Primary Care Physician ~ Signed [facility] Work Phone: 1(202) 686-791411-28-2023 Procedure [facility] 06-17-2023 History and physical note Author Analia Kimbrough [facility] June 17, 2023 2:13pm Note Date/Time June 17, 2023 2:13pm [facility] Medical Records Department [address] [place] [address] History & Physical Exam 06/17/23 1413 MR#: [id number] Acct: [id number] Name: YESSI ANNE Rep #:[id number] : 1990 33 From: Analia Mcgregor DO PCP: Care Physician,No Primary Status :[facility] Location: [place] [address] History and Physical Date of Admission: 06/17/23 Intake Vital Signs 04/17/2311:46 05/26/2313:40 Height 5 ft 1 in 5 ft 1 in Weight: 157 lb 2 oz BMI 29.7 BP 120/82 H Intake Visit Reasons: right side pain/US room Hospice Administrator Required: No Is patient in pain?: No Allergies No Known Allergies Allergy (Verified 05/26/23 13:38) Medications lorazepam 0.5 mg tablet (Ativan) 0.5 mg PO TID PRN anxiety #30 tabs 04/15/22 [Rx Confirmed 05/26/23] folic acid 20 mg capsule 20 mg PO DAILY 07/04/22 [History Confirmed 05/26/23] naproxen 500 mg tablet 500 mg PO Q12H #30 tabs 08/07/22 [Rx Confirmed 05/26/23] citalopram 20 mg tablet 20 mg PO DAILY #90 tabs 10/30/22 [Rx Confirmed 05/26/23] Post menopausal: No Patient : No : No PFSH Medical History 39 weeks gestation of Abnormal Pap smear of cervix Acute wheezy bronchitis Asthma delivery delivered Cyst of face Decreased movements in third trimester Frequent headaches Gestational diabetes Right ankle sprain Right foot sprain Right wrist sprain SGA (small for gestational age), , affecting care of mother, antepartum Sprain of right hand Surgical History History of tonsillectomy Family History Grandmother Breast cancer Lung cancerFather HypertensionMother Hypertension Thyroid disorder AsthmaGrandfather Colon cancer Lung cancerMother DiabetesSister Depression Social History household members: spouse and children housing: house current occupational status: employed current occupation: [employer] pets and animals: Yes Smoking Status: Never smoker alcohol intake: never substance use type: does not use what type of physical activity do you participate in: none do you feel safe at home: Yes additional social history: - Rod HPI right side pain/US room Details: YESSI ANNE is a 33 year old who presents for acute on chronic right lower quadrant pain. This started happening since last year when she had an emergency section for distress. She then had an ectopic on that right side and was treated with methotrexate. She is tearful but denies nausea, vomiting, or diarrhea, no fevers or chills. History 3 Elective abortions Hx Para 1 Spontaneous abortions Hx # Term Pregnancies 2 Ectopic pregnancies Hx # Pregnancies Multiple births # of living children 1 Past Pregnancies Del. Date Name GA/Weeks Outcome Route Bth Weight Gen Labor Lgth Anesthesia Del Locatn Provider FOB 12/05/19 Gretel 39 live - full term 6lbs 1oz Female 12 hours epidural [facility] Dr. Erendira Velasco 02/25/22 Miguel Angel 37 live - full term C- section Male [facility] [place] Delivery Date: 12/05/19 Last Updated by: Valerie Escoto Gestational diabetes, small for gestational age Delivery Date: 02/25/22 Last Updated by: Jaclyn Freire decl LTCS STAT. baby transported to [place] with anemia and passed @ 181 of pulmonary hemorrhage ROS Const ROS Unobtainable: All systems reviewed & are unremarkable except as noted in H Resp Resp: Reports system reviewed and no additional complaints, except as documented; Denies cough GI GI: Reports as per HPI Psych Psych: Reports system reviewed and no additional complaints, except as documented Exam Const General: cooperative, healthy appearing, comfortable and no acute distress Resp Effort & Inspection: normal respiratory effort General: bimanual renal exam normal bilaterally External Female Exam: normal appearance of the urethra Urethra: normal appearance of the urethra Speculum Exam - Vagina: normal appearance of the vagina Speculum Exam - Cervix: normal appearance of the cervix Bimanual Exam- Adnexa, other: normal adnexae and normal Pelvic Support: normal Other: ultrasound shows a cluster of cysts on the right ovary as well as some free fluid. There is a complex cyst measuring 2cm along with multiple follicles. The endometrium is thin Skin General: no rashes or lesions noted Psych Appearance: grossly normal Speech and Movement: speech and movement normal Coding Level of Care Code Off vis,est,level 3 Diagnoses Pelvic pain R10.2 Assessment and Plan Assessment and Plan (1) Pelvic pain: Status: Acute Plan: ongoing right lower quadrant pelvic pain and h/o ectopic . recommend test first ultimately recommend diagnostic laparoscopy chromopertubation of fallopian tubesfor diagnosis of pelvic pain, suspicious for scar tissue or endometriosis. After discussing the patient's diagnosis and treatment plan options, patient wishes to proceed with surgical management. I have discussed with the patient the risks, benefits, and alternatives of the procedure which include but are notlimited to risks of anesthesia, bleeding, infection, possible damage to bowel, bladder, or surrounding vasculature which could lead to additional surgery to evaluate any complications. Patient agrees to procedure and wishes to proceed. ACOG/uptodate references given for additional information regarding procedure. 06/17/23 1413 <Electronically signed by Analia Mcgregor DO> Cosigner Signature (if applicable): CC: Dr. Analia Mcgregor DO; No Primary Care Physician~ Signed [facility] Work Phone: 1(283) 287-470105-10-2022 NoteHemoglobin EvaluationMay 2021 10:22am10.3 g/gLChildren[facility] Work Phone: 1(891) 870-192705-10-2022 NoteHemoglobin EvaluationMay 2021 10:22am10.3 g/gL[facility] Work Phone: 1(459) 759-654105-10-2022 NoteHemoglobin EvaluationMay 2021 10:22am10.3 g/gL[facility] Work Phone: 1(310) 116-194201-05-2022 NoteHNO ID: [id number] Author: Heraclio Wilcox MA Service: ? Author Type: Media Clerk Type: Progress Notes Filed: 07/25/2021 3:00 PM Note Text: POPULATION HEALTH NAVIGATION OUTREACH Action/FYI PCP OFF BOARDING OUTREACH Attempt #1 LMOVM No Mychart. Encounter closed. Contact made with patient or family member? NO Pt identified by name and : NO Outreach Outcome/Action Unable to reach patient: Left message Reason for Outreach Attribution: Provider Off-boarding Payer: No coverage found. Care Gap Reviewed:: Flu vaccine Reminder: Reminder note to check Health Maintenance for items below Health Maintenance items due: COVID-19 VACCINE(1) Never done DEPRESSION SCREENING Never done HEPATITIS C SCREENING Never done HIV SCREENING Never done INFLUENZA(1) due on 03/21/2021 PAP TESTING due on 11/13/2021 HPV TESTING due on 11/13/2021 Heraclio Wilcox MA July 25, 2021 2:56 [facility]01-04-2022 NotePatient Outreach (NETNAV) OMIDYESSI M ([id number]) 1990 F Date Time Provider Department 07/24/21 HERACLIO WILCOX During your visit today, we recorded the following information about you: Heraclio Wilcox MA 07/25/2021 3:00 PM Signed POPULATION HEALTH NAVIGATION OUTREACH Action/FYI PCP OFF BOARDING OUTREACH Attempt #1 LMOVM No Mychart. Encounter closed. Contact made with patient or family member? NO Pt identified by name and : NO Outreach Outcome/Action Unable to reach patient: Left message Reason for Outreach Attribution: Provider Off-boarding Payer: No coverage found. Care Gap Reviewed:: Flu vaccine Reminder: Reminder note to check Health Maintenance for items below Health Maintenance items due: COVID-19 VACCINE(1) Never done DEPRESSION SCREENING Never done HEPATITIS C SCREENING Never done HIV SCREENING Never done INFLUENZA(1) due on 03/21/2021 PAP TESTING due on 11/13/2021 HPV TESTING due on 11/13/2021 Heraclio Wilcox MA July 25, 2021 2:56 PM Allergies As of Date: 07/24/2021 Noted Allergy Reaction MINOCYCLINE 05/13/2016 8 - GI Upset Comments: Nausea and dizziness Date Reviewed: 05/07/2018 Reviewed by: Kate ([facility]) HILARIA Lincoln - Fully Assessed Reason for Visit: Population Health Navigation Outreach [3910] Cmt: Offboarding - Dr Taveras III Prescriptions as of 07/25/2021 - PROGESTERONE VAGINAL Use vaginally. During cycles of 15-25 - albuterol HFA (PROAIR HFA) 90 mcg/actuation inhaler Inhale 2 Puffs as instructed every 6 hours as needed. - tetracycline (SUMYCIN) 250 mg capsule Take 1 capsule by mouth four times daily. - tretinoin (RETIN-A) 0.05 % cream Apply 1 application to affected area daily at bedtime. - levonorgestrel (MIRENA) 20 mcg/24 hr (5 years) IUD Inserted in office Problem List As Of Date 07/24/2021 Noted Resolved Reactive airway disease [J45.909] 04/26/2011 Acne [L70.9] 10/19/2013 Irregular menstrual cycle [N92.6] 10/19/2013 04/23/2016 Anxiety [F41.9] 04/23/2016 Encounter Status:Closed by HERACLIO WILCOX on 07/25/21[facility] complaint+Reason for visit Narrative* Chief Complaint med check RIGHT SHOULDER PAIN Neck pain Back pain COVID-19 Vertigo E-ORDER Reason for Visit depressio n Right shoulder strain Spasm of thoracic back muscle Back pain Segmental and somatic dysfunction of cervical region Segmental and somatic dysfunction of thoracic region Back pain Segmental and somatic dysfunction of thoracic region Vertigo [facility] Work Phone: Evaluation note* Diagnosis Onset Date Resolution Status Back pain acute Segmental and somatic dysfunction of cervical region acute Segmental and somatic dysfunction of lumbar region acute Segmental and somatic dysfunction of pelvic region acute Segmental and somatic dysfunction of thoracic region acute Back pain acute Segmental and somatic dysfunction of cervical region acute Segmental and somatic dysfunction of lumbar region acute Segmental and somatic dysfunction of sacral region acute Segmental and somatic dysfunction of thoracic region acute Back pain acute Segmental and somatic dysfunction of cervical region acute Segmental and somatic dysfunction of lumbar region acute Segmental and somatic dysfunction of sacral region acute Segmental and somatic dysfunction of thoracic region acute Segmental and somatic dysfunction of cervical region acute Segmental and somatic dysfunction of lumbar region acute Segmental and somatic dysfunction of sacral region acute Segmental and somatic dysfunction of thoracic region acute Segmental and somatic dysfunction of cervical region acute Segmental and somatic dysfunction of lumbar region acute Segmental and somatic dysfunction of sacral region acute Segmental and somatic dysfunction of thoracic region acute [facility] Work Phone: Evaluation note* Diagnosis Onset Date Resolution Status Segmental and somatic dysfunction of cervical region acute Segmental and somatic dysfunction of lumbar region acute Segmental and somatic dysfunction of thoracic region acute Back pain resolved Segmental and somatic dysfunction of sacral region resolved Segmental and somatic dysfunction of cervical region acute Segmental and somatic dysfunction of lumbar region acute Segmental and somatic dysfunction of thoracic region acute Back pain resolved Segmental and somatic dysfunction of sacral region resolved Segmental and somatic dysfunction of cervical region acute Segmental and somatic dysfunction of lumbar region acute Segmental and somatic dysfunction of thoracic region acute Segmental and somatic dysfunction of sacral region resolved Segmental and somatic dysfunction of cervical region acute Segmental and somatic dysfunction of lumbar region acute Segmental and somatic dysfunction of thoracic region acute Segmental and somatic dysfunction of sacral region resolved Segmental and somatic dysfunction of cervical region acute Segmental and somatic dysfunction of lumbar region acute Segmental and somatic dysfunction of thoracic region acute Segmental and somatic dysfunction of sacral region resolved Viral URI resolved COVID acute Exposure to COVID-19 virus r esolved Abnormal glucose tolerance t est during , antepartum acute COVID acute History of gestational diabe parvin in prior , currently acute acute Supervision of normal acute Exposure to COVID-19 virus r esolved Viral URI resolved Segmental and somatic dysfunction of cervical region acute Segmental and somatic dysfunction of lumbar region acute Segmental and somatic dysfunction of pelvic region acute Segmental and somatic dysfunction of thoracic region acute Abnormal glucose tolerance t est during , antepartum acute COVID acute History of gestational diabe parvin in prior , currently acute acute Supervision of normal acute Segmental and somatic dysfunction of cervical region acute Segmental and somatic dysfunction of lumbar region acute Segmental and somatic dysfunction of pelvic region acute Segmental and somatic dysfunction of thoracic region acute Segmental and somatic dysfunction of cervical region acute Segmental and somatic dysfunction of lumbar region acute Segmental and somatic dysfunction of pelvic region acute Segmental and somatic dysfunction of thoracic region acute Abnormal glucose tolerance t est during , antepartum acute COVID acute History of gestational diabe parvin in prior , currently acute acute Segmental and somatic dysfunction of cervical region acute Segmental and somatic dysfunction of lumbar region acute Segmental and somatic dysfunction of pelvic region acute Segmental and somatic dysfunction of thoracic region acute Supervision of normal acute Abnormal glucose tolerance t est during , antepartum acute COVID acute History of gestational diabe parvin in prior , currently acute acute Segmental and somatic dysfunction of cervical region acute Segmental and somatic dysfunction of lumbar region acute Segmental and somatic dysfunction of pelvic region acute Segmental and somatic dysfunction of thoracic region acute Supervision of normal acute [facility] Work Phone: Evaluation note* Diagnosis Onset Date Resolution Status Back pain resolved Segmental and somatic dysfunction of cervical region resolved Segmental and somatic dysfunction of lumbar region resolved Segmental and somatic dysfunction of sacral region resolved Segmental and somatic dysfunction of thoracic region resolved Back pain resolved Segmental and somatic dysfunction of cervical region resolved Segmental and somatic dysfunction of lumbar region resolved Segmental and somatic dysfunction of sacral region resolved Segmental and somatic dysfunction of thoracic region resolved Segmental and somatic dysfunction of cervical region resolved Segmental and somatic dysfunction of lumbar region resolved Segmental and somatic dysfunction of sacral region resolved Segmental and somatic dysfunction of thoracic region resolved Segmental and somatic dysfunction of cervical region resolved Segmental and somatic dysfunction of lumbar region resolved Segmental and somatic dysfunction of sacral region resolved Segmental and somatic dysfunction of thoracic region resolved Segmental and somatic dysfunction of cervical region resolved Segmental and somatic dysfunction of lumbar region resolved Segmental and somatic dysfunction of sacral region resolved Segmental and somatic dysfunction of thoracic region resolved Viral URI resolved COVID resolved Exposure to COVID-19 virus r esolved Abnormal glucose tolerance t est during , antepartum resolved COVID resolved Exposure to COVID-19 virus r esolved History of gestational diabe parvin in prior , currently resolved resolved Supervision of normal resolved Viral URI resolved Segmental and somatic dysfunction of cervical region resolved Segmental and somatic dysfunction of lumbar region resolved Segmental and somatic dysfunction of pelvic region resolved Segmental and somatic dysfunction of thoracic region resolved Abnormal glucose tolerance t est during , antepartum resolved COVID resolved History of gestational diabe parvin in prior , currently resolved resolved Supervision of normal resolved Segmental and somatic dysfunction of cervical region resolved Segmental and somatic dysfunction of lumbar region resolved Segmental and somatic dysfunction of pelvic region resolved Segmental and somatic dysfunction of thoracic region resolved Segmental and somatic dysfunction of cervical region resolved Segmental and somatic dysfunction of lumbar region resolved Segmental and somatic dysfunction of pelvic region resolved Segmental and somatic dysfunction of thoracic region resolved Abnormal glucose tolerance t est during , antepartum resolved COVID resolved History of gestational diabe parvin in prior , currently resolved resolved Segmental and somatic dysfunction of cervical region resolved Segmental and somatic dysfunction of lumbar region resolved Segmental and somatic dysfunction of pelvic region resolved Segmental and somatic dysfunction of thoracic region resolved Supervision of normal resolved Abnormal glucose tolerance t est during , antepartum resolved COVID resolved History of gestational diabe parvin in prior , currently resolved resolved Segmental and somatic dysfunction of cervical region resolved Segmental and somatic dysfunction of lumbar region resolved Segmental and somatic dysfunction of pelvic region resolved Segmental and somatic dysfunction of thoracic region resolved Supervision of normal resolved Segmental and somatic dysfunction of cervical region resolved Segmental and somatic dysfunction of lumbar region resolved Segmental and somatic dysfunction of pelvic region resolved Segmental and somatic dysfunction of thoracic region resolved Abnormal glucose tolerance t est during , antepartum resolved COVID resolved History of gestational diabe parvin in prior , currently resolved resolved Supervision of normal resolved [facility] Work Phone: Evaluation note* Diagnosis Onset Date Resolution Status Segmental and somatic dysfunction of cervical region acute Segmental and somatic dysfunction of lumbar region acute Segmental and somatic dysfunction of thoracic region acute Segmental and somatic dysfunction of sacral region resolved Viral URI resolved COVID resolved Exposure to COVID-19 virus r esolved Abnormal glucose tolerance t est during , antepartum resolved COVID resolved Exposure to COVID-19 virus r esolved History of gestational diabe parvin in prior , currently resolved resolved Supervision of normal resolved Viral URI resolved Segmental and somatic dysfunction of cervical region acute Segmental and somatic dysfunction of lumbar region acute Segmental and somatic dysfunction of pelvic region acute Segmental and somatic dysfunction of thoracic region acute Abnormal glucose tolerance t est during , antepartum resolved COVID resolved History of gestational diabe parvin in prior , currently resolved resolved Supervision of normal resolved Segmental and somatic dysfunction of cervical region acute Segmental and somatic dysfunction of lumbar region acute Segmental and somatic dysfunction of pelvic region acute Segmental and somatic dysfunction of thoracic region acute Segmental and somatic dysfunction of cervical region acute Segmental and somatic dysfunction of lumbar region acute Segmental and somatic dysfunction of pelvic region acute Segmental and somatic dysfunction of thoracic region acute Segmental and somatic dysfunction of cervical region acute Segmental and somatic dysfunction of lumbar region acute Segmental and somatic dysfunction of pelvic region acute Segmental and somatic dysfunction of thoracic region acute Abnormal glucose tolerance t est during , antepartum resolved COVID resolved History of gestational diabe parvin in prior , currently resolved resolved Supervision of normal resolved Segmental and somatic dysfunction of cervical region acute Segmental and somatic dysfunction of lumbar region acute Segmental and somatic dysfunction of pelvic region acute Segmental and somatic dysfunction of thoracic region acute Abnormal glucose tolerance t est during , antepartum resolved COVID resolved History of gestational diabe parvin in prior , currently resolved resolved Supervision of normal resolved Segmental and somatic dysfunction of cervical region acute Segmental and somatic dysfunction of lumbar region acute Segmental and somatic dysfunction of pelvic region acute Segmental and somatic dysfunction of thoracic region acute Abnormal glucose tolerance t est during , antepartum resolved COVID resolved History of gestational diabe parvin in prior , currently resolved resolved Supervision of normal resolved care and examination acute Segmental and somatic dysfunction of cervical region acute Segmental and somatic dysfunction of lumbar region acute Segmental and somatic dysfunction of pelvic region acute Segmental and somatic dysfunction of thoracic region acute care and examination [facility] Work Phone: Evaluation note* Diagnosis Onset Date Resolution Status Viral URI resolved COVID resolved Exposure to COVID-19 virus r esolved Abnormal glucose tolerance t est during , antepartum resolved COVID resolved Exposure to COVID-19 virus r esolved History of gestational diabe parvin in prior , currently resolved resolved Supervision of normal resolved Viral URI resolved Segmental and somatic dysfunction of cervical region acute Segmental and somatic dysfunction of lumbar region acute Segmental and somatic dysfunction of pelvic region acute Segmental and somatic dysfunction of thoracic region acute Abnormal glucose tolerance t est during , antepartum resolved COVID resolved History of gestational diabe parvin in prior , currently resolved resolved Supervision of normal resolved Segmental and somatic dysfunction of cervical region acute Segmental and somatic dysfunction of lumbar region acute Segmental and somatic dysfunction of pelvic region acute Segmental and somatic dysfunction of thoracic region acute Segmental and somatic dysfunction of cervical region acute Segmental and somatic dysfunction of lumbar region acute Segmental and somatic dysfunction of pelvic region acute Segmental and somatic dysfunction of thoracic region acute Segmental and somatic dysfunction of cervical region acute Segmental and somatic dysfunction of lumbar region acute Segmental and somatic dysfunction of pelvic region acute Segmental and somatic dysfunction of thoracic region acute Abnormal glucose tolerance t est during , antepartum resolved COVID resolved History of gestational diabe parvin in prior , currently resolved resolved Supervision of normal resolved Segmental and somatic dysfunction of cervical region acute Segmental and somatic dysfunction of lumbar region acute Segmental and somatic dysfunction of pelvic region acute Segmental and somatic dysfunction of thoracic region acute Abnormal glucose tolerance t est during , antepartum resolved COVID resolved History of gestational diabe parvin in prior , currently resolved resolved Supervision of normal resolved Segmental and somatic dysfunction of cervical region acute Segmental and somatic dysfunction of lumbar region acute Segmental and somatic dysfunction of pelvic region acute Segmental and somatic dysfunction of thoracic region acute Abnormal glucose tolerance t est during , antepartum resolved COVID resolved History of gestational diabe parvin in prior , currently resolved resolved Supervision of normal resolved care and examination acute Segmental and somatic dysfunction of cervical region acute Segmental and somatic dysfunction of lumbar region acute Segmental and somatic dysfunction of pelvic region acute Segmental and somatic dysfunction of thoracic region acute care and examination [facility] Work Phone: Evaluation note* Diagnosis Onset Date Resolution Status Segmental and somatic dysfunction of cervical region acute Segmental and somatic dysfunction of lumbar region acute Segmental and somatic dysfunction of pelvic region acute Segmental and somatic dysfunction of thoracic region acute Abnormal glucose tolerance t est during , antepartum resolved COVID resolved History of gestational diabe parvin in prior , currently resolved resolved Supervision of normal resolved Segmental and somatic dysfunction of cervical region acute Segmental and somatic dysfunction of lumbar region acute Segmental and somatic dysfunction of pelvic region acute Segmental and somatic dysfunction of thoracic region acute Segmental and somatic dysfunction of cervical region acute Segmental and somatic dysfunction of lumbar region acute Segmental and somatic dysfunction of pelvic region acute Segmental and somatic dysfunction of thoracic region acute Segmental and somatic dysfunction of cervical region acute Segmental and somatic dysfunction of lumbar region acute Segmental and somatic dysfunction of pelvic region acute Segmental and somatic dysfunction of thoracic region acute Abnormal glucose tolerance t est during , antepartum resolved COVID resolved History of gestational diabe parvin in prior , currently resolved resolved Supervision of normal resolved Segmental and somatic dysfunction of cervical region acute Segmental and somatic dysfunction of lumbar region acute Segmental and somatic dysfunction of pelvic region acute Segmental and somatic dysfunction of thoracic region acute Abnormal glucose tolerance t est during , antepartum resolved COVID resolved History of gestational diabe parvin in prior , currently resolved resolved Supervision of normal resolved Segmental and somatic dysfunction of cervical region acute Segmental and somatic dysfunction of lumbar region acute Segmental and somatic dysfunction of pelvic region acute Segmental and somatic dysfunction of thoracic region acute Abnormal glucose tolerance t est during , antepartum resolved COVID resolved History of gestational diabe parvin in prior , currently resolved resolved Supervision of normal resolved care and examination acute Segmental and somatic dysfunction of cervical region acute Segmental and somatic dysfunction of lumbar region acute Segmental and somatic dysfunction of pelvic region acute Segmental and somatic dysfunction of thoracic region acute care and examination acute Left thyroid nodule acute [facility] Work Phone: Evaluation note* Diagnosis Onset Date Resolution Status Segmental and somatic dysfunction of cervical region acute Segmental and somatic dysfunction of lumbar region acute Segmental and somatic dysfunction of pelvic region acute Segmental and somatic dysfunction of thoracic region acute Abnormal glucose tolerance t est during , antepartum resolved COVID resolved History of gestational diabe parvin in prior , currently resolved resolved Supervision of normal resolved care and examination acute Segmental and somatic dysfunction of cervical region acute Segmental and somatic dysfunction of lumbar region acute Segmental and somatic dysfunction of pelvic region acute Segmental and somatic dysfunction of thoracic region acute care and examination acute Left thyroid nodule acute [facility] Work Phone: Evaluation note* Diagnosis Onset Date Resolution Status depression acute Right shoulder strain acute Spasm of thoracic back muscle acute Back pain acute Segmental and somatic dysfunction of cervical region acute Segmental and somatic dysfunction of thoracic region acute Back pain acute Segmental and somatic dysfunction of thoracic region acute Vertigo noneactive [facility] Work Phone: Evaluation note* Diagnosis Onset Date Resolution Status Vertigo noneactive Back pain acute Segmental and somatic dysfunction of cervical region acute Segmental and somatic dysfunction of lumbar region acute Segmental and somatic dysfunction of thoracic region acute [facility] Work Phone: Evaluation note* Diagnosis Onset Date Resolution Status Vertigo noneactive Back pain acute Segmental and somatic dysfunction of cervical region acute Segmental and somatic dysfunction of lumbar region acute Segmental and somatic dysfunction of thoracic region acute Ectopic acute [facility] Work Phone: Evaluation note* Diagnosis Onset Date Resolution Status Back pain acute Segmental and somatic dysfunction of cervical region acute Segmental and somatic dysfunction of lumbar region acute Segmental and somatic dysfunction of thoracic region acute Ectopic acute Back pain acute Segmental and somatic dysfunction of cervical region acute Segmental and somatic dysfunction of lumbar region acute Segmental and somatic dysfunction of thoracic region acute [facility] Work Phone: Evaluation note* Diagnosis Onset Date Resolution Status Back pain acute Segmental and somatic dysfunction of cervical region acute Segmental and somatic dysfunction of lumbar region acute Segmental and somatic dysfunction of thoracic region acute Ectopic acute Back pain acute Segmental and somatic dysfunction of cervical region acute Segmental and somatic dysfunction of lumbar region acute Segmental and somatic dysfunction of thoracic region acute Back pain acute Segmental and somatic dysfunction of lumbar region acute Segmental and somatic dysfunction of pelvic region acute Segmental and somatic dysfunction of thoracic region acute [facility] Work Phone: Evaluation note* Diagnosis Onset Date Resolution Status Back pain acute Segmental and somatic dysfunction of cervical region acute Segmental and somatic dysfunction of lumbar region acute Segmental and somatic dysfunction of thoracic region acute Ectopic acute Back pain acute Segmental and somatic dysfunction of cervical region acute Segmental and somatic dysfunction of lumbar region acute Segmental and somatic dysfunction of thoracic region acute Back pain acute Segmental and somatic dysfunction of lumbar region acute Segmental and somatic dysfunction of pelvic region acute Segmental and somatic dysfunction of thoracic region acute Back pain acute Segmental and somatic dysfunction of cervical region acute Segmental and somatic dysfunction of lumbar region acute Segmental and somatic dysfunction of pelvic region acute Segmental and somatic dysfunction of thoracic region acute [facility] Work Phone: Evaluation note* Diagnosis Onset Date Resolution Status Ectopic acute Back pain acute Segmental and somatic dysfunction of cervical region acute Segmental and somatic dysfunction of lumbar region acute Segmental and somatic dysfunction of thoracic region acute Back pain acute Segmental and somatic dysfunction of lumbar region acute Segmental and somatic dysfunction of pelvic region acute Segmental and somatic dysfunction of thoracic region acute Back pain acute Segmental and somatic dysfunction of cervical region acute Segmental and somatic dysfunction of lumbar region acute Segmental and somatic dysfunction of pelvic region acute Segmental and somatic dysfunction of thoracic region acute [facility] Work Phone: Evaluation note* Diagnosis Onset Date Resolution Status Ectopic resolved Back pain acute Segmental and somatic dysfunction of cervical region acute Segmental and somatic dysfunction of lumbar region acute Segmental and somatic dysfunction of thoracic region acute Back pain acute Segmental and somatic dysfunction of lumbar region acute Segmental and somatic dysfunction of pelvic region acute Segmental and somatic dysfunction of thoracic region acute Back pain acute Segmental and somatic dysfunction of cervical region acute Segmental and somatic dysfunction of lumbar region acute Segmental and somatic dysfunction of pelvic region acute Segmental and somatic dysfunction of thoracic region acute Left thyroid nodule acute depression acute Encounter for routine gynecological examination noneactive [facility] Work Phone: evaluation note* Diagnosis Onset Date Resolution Status Back pain acute Segmental and somatic dysfunction of lumbar region acute Segmental and somatic dysfunction of pelvic region acute Segmental and somatic dysfunction of thoracic region acute Back pain acute Segmental and somatic dysfunction of cervical region acute Segmental and somatic dysfunction of lumbar region acute Segmental and somatic dysfunction of pelvic region acute Segmental and somatic dysfunction of thoracic region acute Left thyroid nodule acute depression acute Encounter for routine gynecological examination noneactive Pelvic pain acute Back pain acute Segmental and somatic dysfunction of cervical region acute Segmental and somatic dysfunction of lumbar region acute Segmental and somatic dysfunction of pelvic region acute Segmental and somatic dysfunction of thoracic region acute Pelvic pain acute [facility] Work Phone: evaluation note* Diagnosis History of documented in this encounter [facility] Summary Purpose Family History No Family History Records Found Relationship Condition Age at Onset Recorded Date/T tea grandmother Malignant neoplasm of breast Unknown Malignant neoplasm of lung Unknown father Hypertension Unknown mother Hypertension Unknown Disorder of thyroid Unknown Asthma Unknown grandfather Malignant neoplasm of colon Unknown mother Diabetes mellitus Unknown sister Depression Unknown Advance Directives No Advanced Directives Records Found Advance Directive Response Recorded Date/ Time Living Will No August 20 5:47pm Power of Physician Advisor No August 20, 2021 5:47pm Advance Directive Response Recorded Date/ Time Living Will No February 04, 2022 10:16am Power of Physician Advisor No February 04 10:16am Advance Directive Response Recorded Date/ Time Living Will No February 25, 2022 2:16pm Power of Physician Advisor No February 25 2:16pm Advance Directive Response Recorded Date/ Time Living Will No May 03 3:45pm Power of Physician Advisor No May 03, 2022 3:45pm Advance Directive Response Recorded Date/ Time Living Will No May 03 2:45pm Power of Physician Advisor No May 03, 2022 2:45pm Chief Complaint and Reason for Visit Chief Complaint n/v Back pain Back pain Back pain Back pain - 24wks Back pain Reason for Visit Back pain Segmental and somatic dysfunction of cervical region Segmental and somatic dysfunction of lumbar region Segmental and somatic dysfunction of pelvic region Segmental and somatic dysfunction of thoracic region Back pain Segmental and somatic dysfunction of cervical region Segmental and somatic dysfunction of lumbar region Segmental and somatic dysfunction of sacral region Segmental and somatic dysfunction of thoracic region Back pain Segmental and somatic dysfunction of cervical region Segmental and somatic dysfunction of lumbar region Segmental and somatic dysfunction of sacral region Segmental and somatic dysfunction of thoracic region Segmental and somatic dysfunction of cervical region Segmental and somatic dysfunction of lumbar region Segmental and somatic dysfunction of sacral region Segmental and somatic dysfunction of thoracic region Segmental and somatic dysfunction of cervical region Segmental and somatic dysfunction of lumbar region Segmental and somatic dysfunction of sacral region Segmental and somatic dysfunction of thoracic region Chief Complaint Back pain Back pain Back pain - 24wks Back pain Back pain URI PCR COVID TEST/EXPOSURE/SYMPTOMS/BMS EXPOSURE PCR 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 xfer of care from [facility], approx 31 wks GROWTH Adjustment 33wk ob adjustment Back pain 35wk ob NEED LAB ORDER 36wk ob Reason for Visit Segmental and somati c dysfunction of cervical region Segmental and somatic dysfunction of lumbar region Segmental and somatic dysfunction of thoracic region Back pain Segmental and somatic dysfunction of sacral region Segmental and somatic dysfunction of cervical region Segmental and somatic dysfunction of lumbar region Segmental and somatic dysfunction of thoracic region Back pain Segmental and somatic dysfunction of sacral region Segmental and somatic dysfunction of cervical region Segmental and somatic dysfunction of lumbar region Segmental and somatic dysfunction of thoracic region Segmental and somatic dysfunction of sacral region Segmental and somatic dysfunction of cervical region Segmental and somatic dysfunction of lumbar region Segmental and somatic dysfunction of thoracic region Segmental and somatic dysfunction of sacral region Segmental and somatic dysfunction of cervical region Segmental and somatic dysfunction of lumbar region Segmental and somatic dysfunction of thoracic region Segmental and somatic dysfunction of sacral region Viral URI COVID Exposure to COVID-19 virus Abnormal glucose tolerance test during , antepartum COVID History of gestational diabetes in prior , currently Supervision of normal Exposure to COVID-19 virus Viral URI Segmental and somatic dysfunction of cervical region Segmental and somatic dysfunction of lumbar region Segmental and somatic dysfunction of pelvic region Segmental and somatic dysfunction of thoracic region Abnormal glucose tolerance test during , antepartum COVID History of gestational diabetes in prior , currently Supervision of normal Segmental and somatic dysfunction of cervical region Segmental and somatic dysfunction of lumbar region Segmental and somatic dysfunction of pelvic region Segmental and somatic dysfunction of thoracic region Segmental and somatic dysfunction of cervical region Segmental and somatic dysfunction of lumbar region Segmental and somatic dysfunction of pelvic region Segmental and somatic dysfunction of thoracic region Abnormal glucose tolerance test during , antepartum COVID History of gestational diabetes in prior , currently Segmental and somatic dysfunction of cervical region Segmental and somatic dysfunction of lumbar region Segmental and somatic dysfunction of pelvic region Segmental and somatic dysfunction of thoracic region Supervision of normal Abnormal glucose tolerance test during , antepartum COVID History of gestational diabetes in prior , currently Segmental and somatic dysfunction of cervical region Segmental and somatic dysfunction of lumbar region Segmental and somatic dysfunction of pelvic region Segmental and somatic dysfunction of thoracic region Supervision of normal Chief Complaint Back pain Back pain Back pain - 24wks Back pain Back pain URI PCR COVID TEST/EXPOSURE/SYMPTOMS/BMS EXPOSURE PCR 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 xfer of care from [facility], approx 31 wks GROWTH Adjustment 33wk ob adjustment Back pain 35wk ob NEED LAB ORDER 36wk ob ADJUSTMENT decreased movement PRIMARY PRIMARY PRIMARY Reason for Visit Back pain Segmental and somatic dysfunction of cervical region Segmental and somatic dysfunction of lumbar region Segmental and somatic dysfunction of sacral region Segmental and somatic dysfunction of thoracic region Back pain Segmental and somatic dysfunction of cervical region Segmental and somatic dysfunction of lumbar region Segmental and somatic dysfunction of sacral region Segmental and somatic dysfunction of thoracic region Segmental and somatic dysfunction of cervical region Segmental and somatic dysfunction of lumbar region Segmental and somatic dysfunction of sacral region Segmental and somatic dysfunction of thoracic region Segmental and somatic dysfunction of cervical region Segmental and somatic dysfunction of lumbar region Segmental and somatic dysfunction of sacral region Segmental and somatic dysfunction of thoracic region Segmental and somatic dysfunction of cervical region Segmental and somatic dysfunction of lumbar region Segmental and somatic dysfunction of sacral region Segmental and somatic dysfunction of thoracic region Viral URI COVID Exposure to COVID-19 virus Abnormal glucose tolerance test during , antepartum COVID Exposure to COVID-19 virus History of gestational diabetes in prior , currently Supervision of normal Viral URI Segmental and somatic dysfunction of cervical region Segmental and somatic dysfunction of lumbar region Segmental and somatic dysfunction of pelvic region Segmental and somatic dysfunction of thoracic region Abnormal glucose tolerance test during , antepartum COVID History of gestational diabetes in prior , currently Supervision of normal Segmental and somatic dysfunction of cervical region Segmental and somatic dysfunction of lumbar region Segmental and somatic dysfunction of pelvic region Segmental and somatic dysfunction of thoracic region Segmental and somatic dysfunction of cervical region Segmental and somatic dysfunction of lumbar region Segmental and somatic dysfunction of pelvic region Segmental and somatic dysfunction of thoracic region Abnormal glucose tolerance test during , antepartum COVID History of gestational diabetes in prior , currently Segmental and somatic dysfunction of cervical region Segmental and somatic dysfunction of lumbar region Segmental and somatic dysfunction of pelvic region Segmental and somatic dysfunction of thoracic region Supervision of normal Abnormal glucose tolerance test during , antepartum COVID History of gestational diabetes in prior , currently Segmental and somatic dysfunction of cervical region Segmental and somatic dysfunction of lumbar region Segmental and somatic dysfunction of pelvic region Segmental and somatic dysfunction of thoracic region Supervision of normal Segmental and somatic dysfunction of cervical region Segmental and somatic dysfunction of lumbar region Segmental and somatic dysfunction of pelvic region Segmental and somatic dysfunction of thoracic region Abnormal glucose tolerance test during , antepartum COVID History of gestational diabetes in prior , currently Supervision of normal Chief Complaint Back pain URI PCR COVID TEST/EXPOSURE/SYMPTOMS/BMS EXPOSURE PCR 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 xfer of care from [facility], approx 31 wks GROWTH Adjustment 33wk ob adjustment Back pain 35wk ob NEED LAB ORDER 36wk ob ADJUSTMENT decreased movement PRIMARY PRIMARY PRIMARY 2 WK INCISION CHECK neck pain 6 WK PP EORDER Reason for Visit Segmental and somati c dysfunction of cervical region Segmental and somatic dysfunction of lumbar region Segmental and somatic dysfunction of thoracic region Segmental and somatic dysfunction of sacral region Viral URI COVID Exposure to COVID-19 virus Abnormal glucose tolerance test during , antepartum COVID Exposure to COVID-19 virus History of gestational diabetes in prior , currently Supervision of normal Viral URI Segmental and somatic dysfunction of cervical region Segmental and somatic dysfunction of lumbar region Segmental and somatic dysfunction of pelvic region Segmental and somatic dysfunction of thoracic region Abnormal glucose tolerance test during , antepartum COVID History of gestational diabetes in prior , currently Supervision of normal Segmental and somatic dysfunction of cervical region Segmental and somatic dysfunction of lumbar region Segmental and somatic dysfunction of pelvic region Segmental and somatic dysfunction of thoracic region Segmental and somatic dysfunction of cervical region Segmental and somatic dysfunction of lumbar region Segmental and somatic dysfunction of pelvic region Segmental and somatic dysfunction of thoracic region Segmental and somatic dysfunction of cervical region Segmental and somatic dysfunction of lumbar region Segmental and somatic dysfunction of pelvic region Segmental and somatic dysfunction of thoracic region Abnormal glucose tolerance test during , antepartum COVID History of gestational diabetes in prior , currently Supervision of normal Segmental and somatic dysfunction of cervical region Segmental and somatic dysfunction of lumbar region Segmental and somatic dysfunction of pelvic region Segmental and somatic dysfunction of thoracic region Abnormal glucose tolerance test during , antepartum COVID History of gestational diabetes in prior , currently Supervision of normal Segmental and somatic dysfunction of cervical region Segmental and somatic dysfunction of lumbar region Segmental and somatic dysfunction of pelvic region Segmental and somatic dysfunction of thoracic region Abnormal glucose tolerance test during , antepartum COVID History of gestational diabetes in prior , currently Supervision of normal care and examination Segmental and somatic dysfunction of cervical region Segmental and somatic dysfunction of lumbar region Segmental and somatic dysfunction of pelvic region Segmental and somatic dysfunction of thoracic region care and examination Chief Complaint URI PCR COVID TEST/EXPOSURE/SYMPTOMS/BMS EXPOSURE PCR 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 xfer of care from [facility], approx 31 wks GROWTH Adjustment 33wk ob adjustment Back pain 35wk ob NEED LAB ORDER 36wk ob ADJUSTMENT decreased movement PRIMARY PRIMARY PRIMARY 2 WK INCISION CHECK neck pain 6 WK PP EORDER THYROMEGALY Reason for Visit Viral URI COVID Exposure to COVID-19 virus Abnormal glucose tolerance test during , antepartum COVID Exposure to COVID-19 virus History of gestational diabetes in prior , currently Supervision of normal Viral URI Segmental and somatic dysfunction of cervical region Segmental and somatic dysfunction of lumbar region Segmental and somatic dysfunction of pelvic region Segmental and somatic dysfunction of thoracic region Abnormal glucose tolerance test during , antepartum COVID History of gestational diabetes in prior , currently Supervision of normal Segmental and somatic dysfunction of cervical region Segmental and somatic dysfunction of lumbar region Segmental and somatic dysfunction of pelvic region Segmental and somatic dysfunction of thoracic region Segmental and somatic dysfunction of cervical region Segmental and somatic dysfunction of lumbar region Segmental and somatic dysfunction of pelvic region Segmental and somatic dysfunction of thoracic region Segmental and somatic dysfunction of cervical region Segmental and somatic dysfunction of lumbar region Segmental and somatic dysfunction of pelvic region Segmental and somatic dysfunction of thoracic region Abnormal glucose tolerance test during , antepartum COVID History of gestational diabetes in prior , currently Supervision of normal Segmental and somatic dysfunction of cervical region Segmental and somatic dysfunction of lumbar region Segmental and somatic dysfunction of pelvic region Segmental and somatic dysfunction of thoracic region Abnormal glucose tolerance test during , antepartum COVID History of gestational diabetes in prior , currently Supervision of normal Segmental and somatic dysfunction of cervical region Segmental and somatic dysfunction of lumbar region Segmental and somatic dysfunction of pelvic region Segmental and somatic dysfunction of thoracic region Abnormal glucose tolerance test during , antepartum COVID History of gestational diabetes in prior , currently Supervision of normal care and examination Segmental and somatic dysfunction of cervical region Segmental and somatic dysfunction of lumbar region Segmental and somatic dysfunction of pelvic region Segmental and somatic dysfunction of thoracic region care and examination Chief Complaint GROWTH Adjustment 33wk ob adjustment Back pain 35wk ob NEED LAB ORDER 36wk ob ADJUSTMENT decreased movement PRIMARY PRIMARY PRIMARY 2 WK INCISION CHECK neck pain 6 WK PP EORDER THYROMEGALY Thyroid consult/biopsy left lower pole THYROID NODULE Reason for Visit Segmental and somati c dysfunction of cervical region Segmental and somatic dysfunction of lumbar region Segmental and somatic dysfunction of pelvic region Segmental and somatic dysfunction of thoracic region Abnormal glucose tolerance test during , antepartum COVID History of gestational diabetes in prior , currently Supervision of normal Segmental and somatic dysfunction of cervical region Segmental and somatic dysfunction of lumbar region Segmental and somatic dysfunction of pelvic region Segmental and somatic dysfunction of thoracic region Segmental and somatic dysfunction of cervical region Segmental and somatic dysfunction of lumbar region Segmental and somatic dysfunction of pelvic region Segmental and somatic dysfunction of thoracic region Segmental and somatic dysfunction of cervical region Segmental and somatic dysfunction of lumbar region Segmental and somatic dysfunction of pelvic region Segmental and somatic dysfunction of thoracic region Abnormal glucose tolerance test during , antepartum COVID History of gestational diabetes in prior , currently Supervision of normal Segmental and somatic dysfunction of cervical region Segmental and somatic dysfunction of lumbar region Segmental and somatic dysfunction of pelvic region Segmental and somatic dysfunction of thoracic region Abnormal glucose tolerance test during , antepartum COVID History of gestational diabetes in prior , currently Supervision of normal Segmental and somatic dysfunction of cervical region Segmental and somatic dysfunction of lumbar region Segmental and somatic dysfunction of pelvic region Segmental and somatic dysfunction of thoracic region Abnormal glucose tolerance test during , antepartum COVID History of gestational diabetes in prior , currently Supervision of normal care and examination Segmental and somatic dysfunction of cervical region Segmental and somatic dysfunction of lumbar region Segmental and somatic dysfunction of pelvic region Segmental and somatic dysfunction of thoracic region care and examination Left thyroid nodule Chief Complaint ADJUSTMENT decreased movement PRIMARY PRIMARY PRIMARY 2 WK INCISION CHECK neck pain 6 WK PP EORDER THYROMEGALY Thyroid consult/biopsy left lower pole THYROID NODULE Reason for Visit Segmental and somati c dysfunction of cervical region Segmental and somatic dysfunction of lumbar region Segmental and somatic dysfunction of pelvic region Segmental and somatic dysfunction of thoracic region Abnormal glucose tolerance test during , antepartum COVID History of gestational diabetes in prior , currently Supervision of normal care and examination Segmental and somatic dysfunction of cervical region Segmental and somatic dysfunction of lumbar region Segmental and somatic dysfunction of pelvic region Segmental and somatic dysfunction of thoracic region care and examination Left thyroid nodule Chief Complaint Vertigo E-ORDER Neck pain E ORDER E ORDER THREATENED INT LABS Reason for Visit Vertigo Back pain Segmental and somatic dysfunction of cervical region Segmental and somatic dysfunction of lumbar region Segmental and somatic dysfunction of thoracic region Chief Complaint Vertigo E-ORDER Neck pain E ORDER E ORDER THREATENED INT LABS INCOMPLETE Reason for Visit Vertigo Back pain Segmental and somatic dysfunction of cervical region Segmental and somatic dysfunction of lumbar region Segmental and somatic dysfunction of thoracic region Chief Complaint Vertigo E-ORDER Neck pain E ORDER E ORDER THREATENED INT LABS INCOMPLETE Consult LABS Reason for Visit Vertigo Back pain Segmental and somatic dysfunction of cervical region Segmental and somatic dysfunction of lumbar region Segmental and somatic dysfunction of thoracic region Ectopic Chief Complaint Vertigo E-ORDER Neck pain E ORDER E ORDER THREATENED INT LABS INCOMPLETE Consult LABS INT LABS Reason for Visit Vertigo Back pain Segmental and somatic dysfunction of cervical region Segmental and somatic dysfunction of lumbar region Segmental and somatic dysfunction of thoracic region Ectopic Chief Complaint Vertigo E-ORDER Neck pain E ORDER E ORDER THREATENED INT LABS INCOMPLETE Consult LABS INT LABS E ORDER Reason for Visit Vertigo Back pain Segmental and somatic dysfunction of cervical region Segmental and somatic dysfunction of lumbar region Segmental and somatic dysfunction of thoracic region Ectopic Chief Complaint E-ORDER Neck pain E ORDER E ORDER THREATENED INT LABS INCOMPLETE Consult LABS INT LABS E ORDER Back pain Reason for Visit Back pain Segmental and somatic dysfunction of cervical region Segmental and somatic dysfunction of lumbar region Segmental and somatic dysfunction of thoracic region Ectopic Back pain Segmental and somatic dysfunction of cervical region Segmental and somatic dysfunction of lumbar region Segmental and somatic dysfunction of thoracic region Chief Complaint E-ORDER Neck pain E ORDER E ORDER THREATENED INT LABS INCOMPLETE Consult LABS INT LABS E ORDER Back pain Back pain Reason for Visit Back pain Segmental and somatic dysfunction of cervical region Segmental and somatic dysfunction of lumbar region Segmental and somatic dysfunction of thoracic region Ectopic Back pain Segmental and somatic dysfunction of cervical region Segmental and somatic dysfunction of lumbar region Segmental and somatic dysfunction of thoracic region Back pain Segmental and somatic dysfunction of lumbar region Segmental and somatic dysfunction of pelvic region Segmental and somatic dysfunction of thoracic region Chief Complaint Neck pain E ORDER E ORDER THREATENED INT LABS INCOMPLETE Consult LABS INT LABS E ORDER Back pain Back pain Back pain INT LABS Reason for Visit Back pain Segmental and somatic dysfunction of cervical region Segmental and somatic dysfunction of lumbar region Segmental and somatic dysfunction of thoracic region Ectopic Back pain Segmental and somatic dysfunction of cervical region Segmental and somatic dysfunction of lumbar region Segmental and somatic dysfunction of thoracic region Back pain Segmental and somatic dysfunction of lumbar region Segmental and somatic dysfunction of pelvic region Segmental and somatic dysfunction of thoracic region Back pain Segmental and somatic dysfunction of cervical region Segmental and somatic dysfunction of lumbar region Segmental and somatic dysfunction of pelvic region Segmental and somatic dysfunction of thoracic region Chief Complaint E ORDER E ORDER THREATENED INT LABS INCOMPLETE Consult LABS INT LABS E ORDER Back pain Back pain Back pain INT LABS INT LABS Reason for Visit Ectopic Back pain Segmental and somatic dysfunction of cervical region Segmental and somatic dysfunction of lumbar region Segmental and somatic dysfunction of thoracic region Back pain Segmental and somatic dysfunction of lumbar region Segmental and somatic dysfunction of pelvic region Segmental and somatic dysfunction of thoracic region Back pain Segmental and somatic dysfunction of cervical region Segmental and somatic dysfunction of lumbar region Segmental and somatic dysfunction of pelvic region Segmental and somatic dysfunction of thoracic region Chief Complaint E ORDER E ORDER THREATENED INT LABS INCOMPLETE Consult LABS INT LABS E ORDER Back pain Back pain Back pain INT LABS INT LABS 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) Reason for Visit Ectopic Back pain Segmental and somatic dysfunction of cervical region Segmental and somatic dysfunction of lumbar region Segmental and somatic dysfunction of thoracic region Back pain Segmental and somatic dysfunction of lumbar region Segmental and somatic dysfunction of pelvic region Segmental and somatic dysfunction of thoracic region Back pain Segmental and somatic dysfunction of cervical region Segmental and somatic dysfunction of lumbar region Segmental and somatic dysfunction of pelvic region Segmental and somatic dysfunction of thoracic region Left thyroid nodule depression Encounter for routine gynecological examination Chief Complaint INCOMPLETE Consult LABS INT LABS E ORDER Back pain Back pain Back pain INT LABS INT LABS 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) LEFT THYROID NODULE Reason for Visit Ectopic Back pain Segmental and somatic dysfunction of cervical region Segmental and somatic dysfunction of lumbar region Segmental and somatic dysfunction of thoracic region Back pain Segmental and somatic dysfunction of lumbar region Segmental and somatic dysfunction of pelvic region Segmental and somatic dysfunction of thoracic region Back pain Segmental and somatic dysfunction of cervical region Segmental and somatic dysfunction of lumbar region Segmental and somatic dysfunction of pelvic region Segmental and somatic dysfunction of thoracic region Left thyroid nodule depression Encounter for routine gynecological examination Chief Complaint Back pain Back pain INT LABS INT LABS 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) LEFT THYROID NODULE right side pain/US room Back pain Diagnostic Laparoscopy Diagnostic Laparoscopy Reason for Visit Back pain Segmental and somatic dysfunction of lumbar region Segmental and somatic dysfunction of pelvic region Segmental and somatic dysfunction of thoracic region Back pain Segmental and somatic dysfunction of cervical region Segmental and somatic dysfunction of lumbar region Segmental and somatic dysfunction of pelvic region Segmental and somatic dysfunction of thoracic region Left thyroid nodule depression Encounter for routine gynecological examination Pelvic pain Back pain Segmental and somatic dysfunction of cervical region Segmental and somatic dysfunction of lumbar region Segmental and somatic dysfunction of pelvic region Segmental and somatic dysfunction of thoracic region Pelvic pain Additional Source Comments INFORMATION SOURCE (unrecogn ized section and content) DATE CREATED AUTHOR 10/08/2021 [facility] DATE CREATED AUTHOR AUTHOR'S ORGANIZ ATION 01/02/2025 [facility] DATE CREATED AUTHOR AUTHOR'S ORGANIZ ATION 01/22/2025 [facility] Care Teams (unrecognized sec tion and content) Team Status: Active Member Role Status Dates No Primary Care Physician Primary Care Provider Active Team Status: Inactive Member Role Status Dates No Primary Care Physician Primary Care Provider, Refer ring Provider Active Dr. Saritha Salgado MD Attending Provider Active Team Status: Inactive Member Role Status Dates No Primary Care Physician Primary Care Provider, Refer ring Provider Active Dr. Adali Catherine , DICK Attending Provider Active Team Status: Inactive Member Role Status Dates No Primary Care Physician Primary Care Provider, Refer ring Provider Active Nicola Tovar PA PA Attending Provider Active Team Status: Inactive Member Role Status Dates No Primary Care Physician Primary Care Provider, Refer ring Provider Active Albaro Lopez PA, PA Attending Provider Active Team Status: Inactive Member Role Status Dates No Primary Care Physician Primary Care Provider Active Dr. Analia Mcgregor DO Attending Provider, Refe rring Provider Active Team Status: Active Member Role Status Dates No Primary Care Physician Primary Care Provider Active K[address] BENCH ASSEMBLER BATTERY, BENCH ASSEMBLER BATTERY-C Attending Provider, Referring Provider Active Team Status: Inactive Member Role Status Dates No Primary Care Physician Primary Care Provider Active [address] BENCH ASSEMBLER BATTERY, BENCH ASSEMBLER BATTERY-C Attending Provider, Referring Provider Active Team Status: Inactive Member Role Status Dates No Primary Care Physician Primary Care Provider Active Dr. Saritha Salgado MD Attending Provider, Referr ing Provider Active Team Status: Active Member Role Status Dates No Primary Care Physician Primary Care Provider Active Dr. Saritha Salgado MD Attending Provider, Referr ing Provider Active Team Status: Active Member Role Status Dates No Primary Care Physician Primary Care Provider Active Dr. Saritha Salgado MD Attending Provider Active Team Status: Inactive Member Role Status Dates No Primary Care Physician Primary Care Provider Active Dr. Saritha Salgado MD Attending Provider Active Team Status: Inactive Member Role Status Dates No Primary Care Physician Primary Care Provider Active Dr. Reginaldo Saravia MD Attending Provider, Referring P rubi Active Team Status: Inactive Member Role Status Dates No Primary Care Physician Primary Care Provider, Refer ring Provider Active Dr. Analia Mcgregor DO Attending Provider Activ e Team Status: Active Member Role Status Dates No Primary Care Physician Primary Care Provider Active Dr. Analia Mcgregor DO Attending Provider, Referring Provider, Other Provider Active Team Status: Active Member Role Status Dates No Primary Care Physician Primary Care Provider Active Health Risk Assessment Attending Provider Active Clinic Lpn Relationship Specialty Start Date End Date No Primary Care, , [place] [address] PCP - General Pediatrics 01/23/22 Macarena Bourne MD Auto Design Checker Obstetrics Gynecology 08/13/19 [facility] [place] [address] Genetic Counselor Genetics 07/04/22 Clinic Lpn Relationship Specialty Start Date End Date No Primary Care, [place] [address] PCP - General Pediatrics 01/23/22 Macarena Bourne MD Auto Design Checker Obstetrics Gynecology 08/13/19 [facility] [place] [address] Genetic Counselor Genetics 07/04/22 FOR RECORDS PERTAINING TO PATIENTS WHO ARE OR HAVE BEEN ENROLLED IN A CHEMICAL DEPENDENCY/SUBSTANCEABUSE PROGRAM, SOME INFORMATION MAY BE OMITTED. This clinical summary was aggregated from multiple sources. Caution should be exercised in using it in the provision of clinical care. This summary normalizes information from multiple sources, and as a consequence, information in this document may materially change the coding, format and clinical context of patient data. In addition, data may be omitted in some cases. CLINICAL DECISIONS SHOULD BE BASED ON THE PRIMARY CLINICAL RECORDS. [facility]. provides no warranty or guarantee of the accuracy or completeness of information in this document.
== END 2025-01-26 16:10 | disposition short-term general hospital (02) ==
PROVIDERS: Emergency Provider Emergency Medicine; Referring Provider Emergency Medicine; Visit Provider Emergency Medicine
DX: O99.280 Endocrine, nutritional and metabolic diseases complicating pregnancy, unspecified trimester (principal); E16.2 Hypoglycemia, unspecified; N96 Recurrent pregnancy loss; Z3A.00 Weeks of gestation of pregnancy not specified
CPT/HCPCS: 80053; 81001; 82533; 82962; 83525; 83690; 83970; 84145; 84439; 84443; 84481; 84681; 85025; 99285; A4216

== ENCOUNTER 2025-01-26 16:15 | Outpatient (CLI) | payer OTHER, MEDICAID, SELFPAY ==
[2025-01-26 16:46] VITALS: RESP 16; TEMP 36.4; BMI 25.1
[2025-01-26 16:47] VITALS: BP 115/60; PULSE 99
--- NOTE | 2025-01-26 17:15 | HP.PCM.OB_ITS ---
HPI - General HPI Narrative KIKO ANNE, is a 34 F who presents Maternal Data Information ANISA Calculator Estimated Delivery Date Method Current WG Current Estimate 04/17/25 Ultrasound #1 28w 3d PFSH PFSH Medical History Threatened Acute bronchitis, unspecified Concentration deficit History of depression PTSD (post-traumatic stress disorder) Wears glasses Wears contact lenses Depression Anxiety Thyroid disease Ectopic Anemia Asthma Non-smoker delivery delivered Decreased movements in third trimester Abnormal Pap smear of cervix Right foot sprain Right ankle sprain Frequent headaches Cyst of face Sprain of right hand Right wrist sprain SGA (small for gestational age), , affecting care of mother, antepartum Gestational diabetes Asthma Acute wheezy bronchitis Home Medications ?Medication ?Instructions ?Recorded ?Last Taken ?Type hydroxyzine HCl 10 mg tablet 10 mg PO TID PRN anxiety #90 tabs 07/06/24 Unknown Rx ondansetron 4 mg disintegrating 4 mg PO Q6H PRN nausea and 09/08/24 Unknown Rx tablet vomiting #90 tabs bupropion HCl 150 mg tablet,12 hr 150 mg PO BID 90 day s #180 ea 12/07/24 Unknown Rx sustained-release blood-glucose sensor (FreeStyle #1 ea 01/06/25 Unknown Rx Wolfgang 2 Plus Sensor device) flash glucose scanning reader #1 ea 01/06/25 Unknown R x (FreeStyle Wolfgang 2 Keller) pen needle, diabetic 31 gauge x #100 ea 01/06/25 Unkno wn Rx 1/4 (Droplet Pen Needle) pyridoxine (vitamin B6) 100 mg 100 mg PO QDAY #14 tabs 01/19/25 Unknown Rx tablet blood sugar diagnostic (Blood #120 ea 01/25/25 Unknown Rx Glucose Test strips) blood-glucose meter #1 ea 01/25/25 Unknown Rx lancets 30 gauge (Droplet Lancets) #200 ea 01/25/25 Un known Rx Allergy/AdvReac Type Severity Reaction Status Date / Time doxycycline AdvReac Mild Nausea Verified 01/26/25 16:48 Family History Grandmother Breast cancer Lung cancer Father Hypertension Mother Hypertension Thyroid disorder Asthma Grandfather Colon cancer Lung cancer Mother Diabetes Sister Depression Surgical History Previous section H/O unilateral salpingectomy (~02/12/24) H/O laparoscopy History of tonsillectomy Social History household members: spouse and children housing: house current occupational status: employed current occupation: [employer] pets and animals: Yes Smoking Status: Never smoker alcohol intake: never substance use type: does not use what type of physical activity do you participate in: none do you feel safe at home: Yes additional social history: - Rod History 6 Elective abortions Hx Para 1 Spontaneous abortions 1 Hx # Term Pregnancies 2 Ectopic pregnancies 2 Hx # Pregnancies Multiple births # of living children 1 Past Pregnancies Del. Date Name GA/Weeks Outcome Route Bth Weight Gen Labor Lgth Anesthesia Del Locatn Provider FOB Unknown 2017 SAB Unknown 2022 Ectopic Unknown 2023 Ectopic 12/05/19 Gretel 39 live - full term 6lbs 1oz Female 12 hours epidural [facility] Dr. Erendira Velasco 02/25/22 Miguel Angel 37 live - full term Male [facility] Marckirstyony Delivery Date: 12/05/19 Last Updated by: Valerie Escoto Gestational diabetes, small for gestational age Delivery Date: 02/25/22 Last Updated by: Jaclyn Freire [facility] STAT. baby transported to [place] with anemia and passed @ 1812 of pulmonary hemorrhage Visit Details Expected Delivery Route/Plan TOLAC if able patient counseled regarding risks/benefits of trial of labor versus repeat . ACOG/uptodate education given to patient. [] % likelihood of success per calculator TOLAC consent form signed: [] Plans Covid status: [] Flu vaccine: [] Tdap vaccine: [] Rhogam: [] LARC form signed: [] Problem list reviewed and updated with the most current plan of care details and appropriate orders placed. Relevant counseling for the gestational age provided. Continue routine care and follow up unless otherwise noted in visit notes/problem list details OB Flowsheet Initial Weight: 138 lb Date -?-?-?-?-?-?-?-?-?-?-?-?- EGA Weight BP Urine Prot -?-?-?-?-?-?-?-?-?-?-?-?- Glucose FHR FuHt Pres Dilation -?-?-?-?-?-?-?-?-?-?-?-?- Effaced St Visit Note 08/23/24 -?-?-?-?-?-?-?-?-?-?-?-?- 6w 1d 138 lb 2 oz (+2 oz) 102/72 -?-?-?-?-?-?-?-?-?-?-?-?- -?-?-?-?-?-?-?-?-?-?-?-?- SM- GS 18mm and ys seen possible 1 mm early pole 08/30/24 -?-?-?-?-?-?-?-?-?-?-?-?- 7w 1d 138 lb (+0 oz) 100/70 -?-?-?-?-?-?-?-?-?-?-?-?- 130 -?-?-?-?-?-?-?-?-?-?-?-?- SM- no vb crampi ng measuring 6w4d .65cm cons with LMP 09/08/24 -?-?-?-?-?-?-?-?-?-?-?-?- 8w 3d 138 lb (+0 oz) 110/77 Negative -?-?-?-?-?-?-?-?-?-?-?-?- Negative 169 -?-?-?-?-?-?-?-?-?-?-?-?- KW- work in for spotting after vomiting. CRL cons with dates KW- work in for spotting aft er vomiting. CRL cons with dates. reassurance given and zofran given 09/15/24 -?-?-?-?-?-?-?-?-?-?-?-?- 9w 3d 138 lb 2 oz (+2 oz) 111/76 -?-?-?-?-?-?-?-?-?-?-?-?- 150 -?-?-?-?-?-?-?-?-?-?-?-?- SM- some spottin g on and off, possible irregular vascuatiry seen over cervix- recommend MFM consult in the next week or two to evaluate 10/06/24 -?-?-?-?-?-?-?-?-?-?-?-?- 12w 3d 135 lb (-3 lb) 96/69 -?-?-?-?-?--?-?-?-?-?-?-?- 160 -?-?-?-?-?-?-?-?-?-?-?-?- SM- occasional s potting, having vomiting no lof 10/20/24 -?-?-?-?-?-?-?-?-?-?-?-?- 14w 3d 134 lb 4 oz (-3 lb 12 oz) 98/66 Negative -?-?-?-?-?-?-?-?-?-?-?-?- Negative 160 -?-?-?-?-?-?-?-?-?-?-?-?- SM- no vb crampi ng nausea improving 11/09/24 -?-?-?-?-?-?-?-?-?-?-?-?- 17w 2d 132 lb 4 oz (-5 lb 12 oz) 101/67 -?-?-?-?-?-?-?-?-?-?-?-?- 155 -?-?-?-?-?-?-?-?-?-?-?-?- SM- no vb crampi ng still having nausea, plan afp today, US scheduled 12/08/24 -?-?-?-?-?-?-?-?-?-?-?-?- 21w 3d 136 lb (-2 lb) 97/66 Negative -?-?-?-?-?-?-?-?-?-?-?-?- Negative 148 -?-?-?-?-?-?-?-?-?-?-?-?- JV- anatomy scan overall normal but needs to return for repeat views in 4 weeks. Also recommended to have a 32 week and 36 week ultrasound. plan is to deliver at 37 weeks. give steroids week of 36. wants if possible. 01/06/25 -?-?-?-?-?-?-?-?-?-?-?-?- 25w 4d 137 lb 2 oz (-14 oz) 103/64 Negative -?-?-?-?-?-?-?-?-?-?-?-?- Negative 141 -?-?-?-?-?-?-?-?-?-?-?-?- FAVIAN dickson is wor ried about the baby's head size. She also is nervous about the OR and requests IOL (after ) wants to do wolfgang system for monitoring glucose as is nervous about vomiting the glucola 01/17/25 -?-?-?-?-?-?-?-?-?-?-?-?- 27w 1d 134 lb 8 oz (-3 lb 8 oz) 103/73 -?-?-?-?-?-?-?-?-?-?-?-?- 147 26 -?-?-?-?-?-?-?-?-?-?-?-?- FAVIAN Dickson's gluc ose log shows hypogylcemia down to the 50's and she is symptomatic. She is adding protein with her meals. recommend glucose tabs. She is also not gaining weight in despite a regular balanced diet. Labs ordered and will consul MFM. Vital Signs Vital Signs Vital Signs: 01/26/25 16:47 01/26/25 16:47 Pulse Rate 99 Blood Pressure 115/60 BP Systolic 115 BP Diastolic 60 Weight Weight: 137 lb 5.568 oz Body Mass Index (BMI) 25.1 Labs Labs Labs: Blood Type A POSITIVE Antibody Screen NEGATIVE Hct 30.1 % (37-47) L Hgb 10.3 g/dL (12.0-15.0) L Pap Smear Negative Obstetrics Ultrasound Syphilis Total Ab Nonreactive (Nonreactive) Rubella IgG Antibody REAC (Nonreactive) Hep Bs Antigen Nonreactive (Nonreactive) Hepatitis C Antibody Nonreactive (Nonreactive) Chlamydia DNA (MAE) Negative (Negative) N.gonorrhoeae DNA (MAE) Negative (Negative) HIV 1&2 Antibody Nonreactive (Nonreactive) Glucose 1 Hr 50 gm 145 mg/dL (70-140) H Gest Glucose Tolerance MG/DL Rhogam given: No Miscellaneous Test COMMENT (.)
--- NOTE | 2025-01-26 17:15 | PCM.HP.OB ---
HPI - General General Date of Admission: 01/26/25 HPI Narrative KIKO ANNE, is a 34 y/o (one term demise and one living child) who presents to L&D from the ER with the complaints of constant dizziness and low glucose levels. She wears a glucometer continuously for not being able to tolerate a 1 hr gct. It was noted incidentally that her glucose levels were dipping at night down to the 40's. Today in the ER her glucose was 95 after drinking juice and eating some peanut butter crackers and then dropped to the 50's within 2 hours. During the drop she felt shaky and weak. She was brought to L&D to monitor the baby and she was too weak to walk from the hallway to the bed. Maternal Data Information ANISA Calculator Estimated Delivery Date Method Current WG Current Estimate 04/17/25 Ultrasound #1 28w 3d [facility] Medical History Threatened Acute bronchitis, unspecified Concentration deficit History of depression PTSD (post-traumatic stress disorder) Wears glasses Wears contact lenses Depression Anxiety Thyroid disease Ectopic Anemia Asthma Non-smoker delivery delivered Decreased movements in third trimester Abnormal Pap smear of cervix Right foot sprain Right ankle sprain Frequent headaches Cyst of face Sprain of right hand Right wrist sprain SGA (small for gestational age), , affecting care of mother, antepartum Gestational diabetes Asthma Acute wheezy bronchitis Home Medications ?Medication ?Instructions ?Recorded ?Last Taken ?Type hydroxyzine HCl 10 mg tablet 10 mg PO TID PRN anxiety #90 tabs 07/06/24 Unknown Rx ondansetron 4 mg disintegrating 4 mg PO Q6H PRN nausea and 09/08/24 Unknown Rx tablet vomiting #90 tabs bupropion HCl 150 mg tablet,12 hr 150 mg PO BID 90 days #180 ea 12/07/24 Unknown Rx sustained-release blood-glucose sensor (FreeStyle #1 ea 01/06/25 Unknown Rx Wolfgang 2 Plus Sensor device) flash glucose scanning reader #1 ea 01/06/25 Unknown Rx (FreeStyle Wolfgang 2 [place]) pen needle, diabetic 31 gauge x #100 ea 01/06/25 Unknown Rx 1/4 (Droplet Pen Needle) pyridoxine (vitamin B6) 100 mg 100 mg PO QDAY #14 tabs 01/19/25 Unknown Rx tablet blood sugar diagnostic (Blood #120 ea 01/25/25 Unknown Rx Glucose Test strips) blood-glucose meter #1 ea 01/25/25 Unknown Rx lancets 30 gauge (Droplet Lancets) #200 ea 01/25/25 Unknown Rx Allergy/AdvReac Type Severity Reaction Status Date / Time doxycycline AdvReac Mild Nausea Verified 01/26/25 16:48 Family History Grandmother Breast cancer Lung cancer Father Hypertension Mother Hypertension Thyroid disorder Asthma Grandfather Colon cancer Lung cancer Mother Diabetes Sister Depression Surgical History Previous section H/O unilateral salpingectomy (~02/12/24) H/O laparoscopy History of tonsillectomy Social History household members: spouse and children housing: house current occupational status: employed current occupation: [employer] pets and animals: Yes Smoking Status: Never smoker alcohol intake: never substance use type: does not use what type of physical activity do you participate in: none do you feel safe at home: Yes additional social history: - Rod History 6 Elective abortions Hx Para 1 Spontaneous abortions 1 Hx # Term Pregnancies 2 Ectopic pregnancies 2 Hx # Pregnancies Multiple births # of living children 1 Past Pregnancies Del. Date Name GA/Weeks Outcome Route Bth Weight Infant Gen Labor Lgth Anesthesia Del Locatn Provider FOB Unknown 2017 SAB Unknown 2022 Ectopic Unknown 2023 Ectopic 12/05/19 Gretel 39 live - full term 6lbs 1oz Female 12 hours epidural [facility] Dr. Erendira Velasco 02/25/22 Miguel Angel 37 live - full term Male [facility] Hal Delivery Date: 12/05/19 Last Updated by: Valerie Escoto Gestational diabetes, small for gestational age Delivery Date: 02/25/22 Last Updated by: Jaclyn Freire decl CS STAT. baby transported to [place] with anemia and passed @ 1812 of pulmonary hemorrhage Visit Details Expected Delivery Route/Plan TOLAC if able patient counseled regarding risks/benefits of trial of labor versus repeat . ACOG/uptodate education given to patient. [] % likelihood of success per calculator TOLAC consent form signed: [] Plans Covid status: [] Flu vaccine: [] Tdap vaccine: [] Rhogam: [] LARC form signed: [] Problem list reviewed and updated with the most current plan of care details and appropriate orders placed. Relevant counseling for the gestational age provided. Continue routine care and follow up unless otherwise noted in visit notes/problem list details OB Flowsheet Initial Weight: 138 lb Date <del>?</del> EGA Weight BP Urine Prot <del>?</del> Glucose FHR FuHt Pres Dilation <del>?</del> Effaced St Visit Note 08/23/24 <del>?</del> 6w 1d 138 lb 2 oz (+2 oz) 102/72 <del>?</del> <del>?</del> SM- GS 18mm and ys seen possible 1 mm early pole 08/30/24 <del>?</del> 7w 1d 138 lb (+0 oz) 100/70 <del>?</del> 130 <del>?</del> SM- no vb cramping measuring 6w4d .65cm cons with LMP 09/08/24 <del>?</del> 8w 3d 138 lb (+0 oz) 110/77 Negative <del>?</del> Negative 169 <del>?</del> KW- work in for spotting after vomiting. CRL cons with dates KW- work in for spotting after vomiting. CRL cons with dates. reassurance given and zofran given 09/15/24 <del>?</del> 9w 3d 138 lb 2 oz (+2 oz) 111/76 <del>?</del> 150 <del>?</del> SM- some spotting on and off, possible irregular vascuatiry seen over cervix- recommend MFM consult in the next week or two to evaluate 10/06/24 <del>?</del> 12w 3d 135 lb (-3 lb) 96/69 <del>?</del> 160 <del>?</del> SM- occasional spotting, having vomiting no lof 10/20/24 <del>?</del> 14w 3d 134 lb 4 oz (-3 lb 12 oz) 98/66 Negative <del>?</del> Negative 160 <del>?</del> SM- no vb cramping nausea improving 11/09/24 <del>?</del> 17w 2d 132 lb 4 oz (-5 lb 12 oz) 101/67 <del>?</del> 155 <del>?</del> SM- no vb cramping still having nausea, plan afp today, US scheduled 12/08/24 <del>?</del> 21w 3d 136 lb (-2 lb) 97/66 Negative <del>?</del> Negative 148 <del>?</del> JV- anatomy scan overall normal but needs to return for repeat views in 4 weeks. Also recommended to have a 32 week and 36 week ultrasound. plan is to deliver at 37 weeks. give steroids week of 36. wants if possible. 01/06/25 <del>?</del> 25w 4d 137 lb 2 oz (-14 oz) 103/64 Negative <del>?</del> Negative 141 <del>?</del> FAVIAN dickson is worried about the baby's head size. She also is nervous about the OR and requests IOL (after ) wants to do wolfgang system for monitoring glucose as is nervous about vomiting the glucola 01/17/25 <del>?</del> 27w 1d 134 lb 8 oz (-3 lb 8 oz) 103/73 <del>?</del> 147 26 <del>?</del> FAVIAN Dickson's glucose log shows hypogylcemia down to the 50's and she is symptomatic. She is adding protein with her meals. recommend glucose tabs. She is also not gaining weight in despite a regular balanced diet. Labs ordered and will consul MFM. NST FHR Rate Baby A Baseline: 150 Variability:: Moderate Accelerations:: 10 x 10 Decelerations:: None NST Reactive:: Appropriate for gestational age FHR Category:: Category I ROS Constitutional Constitutional: Reports fatigue, headache(s), lethargy, poor appetite, weakness and other Details: has not gained any weight during the ; Denies anorexia, fever(s), malaise or night sweats Eyes Eyes: Reports none ENT HEENT: Reports none Cardiovascular Cardiovascular: Reports dizziness and racing heartbeat; Denies abdominal bloating, chest pain, chest pain at rest, chest pain with activity, cold extremities, dyspnea, dyspnea at rest or edema Respiratory/Chest Respiratory/Chest: Denies change in mental status, chest tightness or cough Gastrointestinal Gastrointestinal: Denies anorexia, belching, bloating, change in bowel habits, constipation, cramping, diarrhea or dyspepsia Genitourinary Genitourinary: Reports none Musculoskeletal Musculoskeletal: Reports none Integumentary Integumentary: Reports none Neurologic Neurologic: Reports as per HPI Psychiatric Psychiatric: Reports anxiety and panic attacks Endocrine Endocrinology: Reports as per HPI Hematologic/Lymphatic Hematologic/Lymphatic: Reports none Allergic/Immunologic Allergic/Immunologic: Reports none Vital Signs Vital Signs Vital Signs: 01/26/25 16:47 01/26/25 16:47 Pulse Rate 99 Blood Pressure 115/60 BP Systolic 115 BP Diastolic 60 Weight Weight: 137 lb 5.568 oz Body Mass Index (BMI) 25.1 Physical Exam Const alert, oriented x3 and no apparent distress General Appearance: cooperative and comfortable HEENT normocephalic HEENT Narrative: gingiva is erythematous and edematous. Head and Scalp: normal to inspection Face and Sinus: normal facial exam Teeth and Gingiva: fair dentition and gingiva abnormal Positive for gingival edema and diffuse gingival erythema Eyes PERRL Resp normal respiratory effort GI soft to palpation, non-tender and non-distended; Negative for hepatosplenomegaly no CVA tenderness Manual OB Exam: deferred Uterus Palpation: Negative for uterus tender Back/Spine no CVA tenderness Extremity normal to inspection Skin Lesions: no lesions Psych mental status grossly normal Labs Labs Labs: Blood Type A POSITIVE Antibody Screen NEGATIVE Hct 30.1 % (37-47) L Hgb 10.3 g/dL (12.0-15.0) L Pap Smear Negative Obstetrics Ultrasound Syphilis Total Ab Nonreactive (Nonreactive) Rubella IgG Antibody REAC (Nonreactive) Hep Bs Antigen Nonreactive (Nonreactive) Hepatitis C Antibody Nonreactive (Nonreactive) Chlamydia DNA (MAE) Negative (Negative) N.gonorrhoeae DNA (MAE) Negative (Negative) HIV 1&2 Antibody Nonreactive (Nonreactive) Glucose 1 Hr 50 gm 145 mg/dL (70-140) H Gest Glucose Tolerance MG/DL Rhogam given: No Miscellaneous Test COMMENT (.) Assessment & Plan (1) Hypoglycemia: (2) Poor weight gain of : (3) Supervision of high-risk : COMMENT: PRR ANISA 04/17/25 boy AGUS Majano (Miguel Angeljun) Rod (4) History of loss: COMMENT: s/p MFM consult. weekly BPP/dopplers, weekly nsts from 32 on, delivery 37. (wants to if possible) (5) : QUALIFIERS: Weeks of gestation: 27 weeks Qualified Code(s): Z3A.27 - 27 weeks gestation of COMMENT: NIPT low risk, nl anatomy (6) Previous section: COMMENT: if able, may struggle with PTSD in OR. (7) depression: COMMENT: counseling- PTSD, celexa. PLAN: Plan MFM was consulted and the plan is to check pre and post meal glucose levels and compare them to the monitor she wears. Check glucose also when becomes symptomatic -normal orthostatic vitals in ER , check again when symptomatic -normal diet and activity - do these things for 24 hours -labs pending are PTH, insulin, and celiac work up. All other labs are normal. Charges/Coding Multi Select Codes Visit Charges Observation E&M Codin Initial observation care L3
--- NOTE | 2025-01-26 17:40 | NURSING ---
1730 when this RN entered room for lab draw, patient's glucose monitor was alarming stating her BGT was 54; this RN immediately obtained BGT using hospital monitor and BGT was 86; patient states that she feels no different in symptoms. Provider notified
[2025-01-26 20:01] VITALS: BP 101/55; PULSE 83; RESP 16; TEMP 36.6
[2025-01-26 20:02] VITALS: PULSE 84; O2SAT 97
[2025-01-26] MEDS: buPROPion (SR) 150 MG Tablet.SA PO (20:06)
[2025-01-28 18:08] LABS: Immunoglobulin A 161 mg/dL (87-352)
== END 2025-01-26 22:00 | disposition short-term general hospital (02) ==
LOC: WPOUT 16:23 → WP 16:24
PROVIDERS: Referring Provider Obstetrics & Gynecology; Visit Provider Obstetrics & Gynecology
DX: O99.282 Endocrine, nutritional and metabolic diseases complicating pregnancy, second trimester (principal); E16.2 Hypoglycemia, unspecified; Z3A.27 27 weeks gestation of pregnancy; O34.219 Maternal care for unspecified type scar from previous cesarean delivery; N96 Recurrent pregnancy loss
CPT/HCPCS: 36415; 59025; 59050; 82784; 82962; 83516; 86255; 99221; G0378

== ENCOUNTER → 2025-02-01 | Outpatient (CLI) | payer OTHER, MEDICAID, SELFPAY ==
--- NOTE | 2025-02-01 09:34 | VDUE_ITS ---
Reason For Study Reason For Study: RUE PAIN Right Proximal Right jugular vein is spontaneous, widely patent, phasic, with no intraluminal echogenicity noted. Right subclavian vein is spontaneous, widely patent, phasic, with no intraluminal echogenicity noted. Right Lower Arm Right radial vein is compressible. Right ulnar vein is compressible. Right Arm Right axillary vein is spontaneous, patent, phasic, competent, compressible and demonstrates augmentation. Right brachial vein is compressible. Right cephalic vein is DILATED AND NON-COMPRESSIBLE, NO FLOW noted from elbow to mid bicep. Balance of cephalic vein is compressible. Right basilic vein is compressible. Patient Safety Dr. Mcgregor @ [phone] @ 10 am. PT was given instructions while here. Procedure This was a unilateral right upper extremity venous doppler examination. VL/Venous Duplex US, Unilateral Interpretation Summary Acute superficial vein thrombosis noted in the right cephalic vein. Deep veins of the right upper extremity are patent and compressible segmentally . There is no evidence of deep vein thrombosis. Ordering Physician: Analia Mcgregor Referring Physician: NO PCP Performed By: Sindy Gann, RACHEL, RVT ???
--- NOTE | 2025-02-01 09:34 | VDUE_ITS ---
Reason For Study Reason For Study: RUE PAIN Right Proximal Right jugular vein is spontaneous, widely patent, phasic, with no intraluminal echogenicity noted. Right subclavian vein is spontaneous, widely patent, phasic, with no intraluminal echogenicity noted. Right Lower Arm Right radial vein is compressible. Right ulnar vein is compressible. Right Arm Right axillary vein is spontaneous, patent, phasic, competent, compressible and demonstrates augmentation. Right brachial vein is compressible. Right cephalic vein is DILATED AND NON-COMPRESSIBLE, NO FLOW noted from elbow to mid bicep. Balance of cephalic vein is compressible. Right basilic vein is compressible. Patient Safety Dr. Mcgregor @ [phone] @ 10 am. PT was given instructions while here. Procedure This was a unilateral right upper extremity venous doppler examination. VL/Venous Duplex US, Unilateral Interpretation Summary Acute superficial vein thrombosis noted in the right cephalic vein. Deep veins of the right upper extremity are patent and compressible segmentally . There is no evidence of deep vein thrombosis. Ordering Physician: Analia Mcgregor Referring Physician: NO PCP Performed By: Sindy Gann, RACHEL, RVT ???
== END | disposition home or self-care (01) ==
LOC: CVS 09:34
PROVIDERS: Referring Provider Obstetrics & Gynecology; Visit Provider Obstetrics & Gynecology
DX: O99.891 Other specified diseases and conditions complicating pregnancy (principal); M79.601 Pain in right arm; Z3A.29 29 weeks gestation of pregnancy
CPT/HCPCS: 93971

== ENCOUNTER → 2025-02-07 | Outpatient (CLI) | payer OTHER, MEDICAID, SELFPAY ==
[2025-02-07 13:26] LABS: Free T3 2.2 pg/mL (2.18-3.98)
== END | disposition home or self-care (01) ==
PROVIDERS: Referring Provider Obstetrics & Gynecology; Visit Provider Obstetrics & Gynecology
DX: O26.10 Low weight gain in pregnancy, unspecified trimester (principal); Z3A.00 Weeks of gestation of pregnancy not specified
CPT/HCPCS: 36415; 84439; 84443; 84481

== ENCOUNTER 2025-02-22 15:45 | Outpatient (CLI) | payer OTHER, SELFPAY ==
--- NOTE | 2025-02-22 15:53 | US_ITS ---
PROCEDURE: OB BIOPHYSICAL PROF W/O NST 02/22/2025 REASON FOR EXAM: NONREACTIVE NST. LMP EGA of 32 weeks 2 days. TECHNIQUE: OB BIOPHYSICAL PROF W/O NST. Transabdominal imaging of the maternal pelvis for biophysical profile evaluation with image documentation. COMPARISON: US - TRANSVAGINAL W/PREG - 23-Aug-2024 11:54 AM FINDINGS FETUS: There is a single living intrauterine gestation. POSITION: position is cephalic. HEART RATE: The heart rate is 140 bpm and regular. ANATOMIC SURVEY: Detailed anatomy survey not performed. The visualized anatomy is unremarkable. CERVIX: Not well visualized. PLACENTA: The placenta is anterior. Grade 1. No demonstrated evidence of previa or abruption. BREATHING MOVEMENTS: Score 2/2. BODY MOVEMENTS: Score 2/2. TONE: Score 2/2. QUALITATIVE AMNIOTIC FLUID VOLUME: 11.7 cm, largest pocket 3.9 cm Score 2/2. US/OB Biophysical Prof W/O NST IMPRESSION: 1. Single live intrauterine gestation. 2. Normal biophysical profile, 02/25. Reading Location: [id number]
[2025-02-22 15:55] VITALS: BMI 25.9
[2025-02-22 16:06] VITALS: BP 101/59; PULSE 101
--- NOTE | 2025-02-22 17:44 | OB.TRI.HP_ITS ---
HPI - General HPI Narrative KIKO ANNE, is a 35 F who presents to L&D for an NST and BPP due to non- reactive nst in the office today. She is 32 weeks 2 days and has IUGR with normal dopplers. The baby's AC is <1st% Maternal Data Information ANISA Calculator Estimated Delivery Date Method Current WG Current Estimate 04/17/25 [facility] Medical History Threatened Acute bronchitis, unspecified Concentration deficit History of depression PTSD (post-traumatic stress disorder) Wears glasses Wears contact lenses Depression Anxiety Thyroid disease Ectopic Anemia Asthma Non-smoker delivery delivered Decreased movements in third trimester Abnormal Pap smear of cervix Right foot sprain Right ankle sprain Frequent headaches Cyst of face Sprain of right hand Right wrist sprain SGA (small for gestational age), , affecting care of mother, antepartum Gestational diabetes Asthma Acute wheezy bronchitis Home Medications ?Medication ?Instructions ?Recorded ?Last Taken ?Type hydroxyzine HCl 10 mg tablet 10 mg PO TID PRN anxiety #90 tabs 07/06/24 Unknown Rx ondansetron 4 mg disintegrating 4 mg PO Q6H PRN nausea and 09/08/24 Unknown Rx tablet vomiting #90 tabs bupropion HCl 150 mg tablet,12 hr 150 mg PO BID 90 day s #180 ea 12/07/24 02/22/25 07:30 Rx sustained-release 150 mg blood-glucose sensor (FreeStyle #1 ea 01/06/25 Unknown Rx Wolfgang 2 Plus Sensor device) flash glucose scanning reader #1 ea 01/06/25 Unknown R x (FreeStyle Wolfgang 2 [place]) pen needle, diabetic 31 gauge x #100 01/06/25 Unkno wn Rx 1/ (Droplet Pen Needle) pyridoxine (vitamin B6) 100 mg 100 mg PO QDAY #14 tabs 01/19/25 02/22/25 07:30 Rx tablet 100 mg blood sugar diagnostic (Blood #120 ea 01/25/25 Unknown Rx Glucose Test strips) blood-glucose meter #1 ea 01/25/25 Unknown Rx lancets 30 gauge (Droplet Lancets) #200 ea 01/25/25 Un known Rx aspirin 81 mg tablet,delayed 81 mg PO DAILY 02/22/25 0 02/22/25 07:30 History release (Adult Low Dose Aspirin) 81 mg omeprazole magnesium 20 mg 20 mg PO DAILY 02/22/2511/12 07:30 History tablet,delayed release (Prilosec 20 mg OTC) Allergy/AdvReac Type Severity Reaction Status Date / Time doxycycline AdvReac Mild Nausea Verified 02/22/25 16:00 Family History Grandmother Breast cancer Lung cancer Father Hypertension Mother Hypertension Thyroid disorder Asthma Grandfather Colon cancer Lung cancer Mother Diabetes Sister Depression Surgical History Previous section H/O unilateral salpingectomy (~02/12/24) H/O laparoscopy History of tonsillectomy Social History household members: spouse and children housing: house current occupational status: employed current occupation: [employer] pets and animals: Yes Smoking Status: Never smoker alcohol intake: never substance use type: does not use what type of physical activity do you participate in: none do you feel safe at home: Yes additional social history: - Rod History 6 Elective abortions Hx Para 1 Spontaneous abortions 1 Hx # Term Pregnancies 2 Ectopic pregnancies 2 Hx # Pregnancies Multiple births # of living children 1 Past Pregnancies Del. Date Name GA/Weeks Outcome Route Bth Weight Gen Labor Lgth Anesthesia Del Locatn Provider FOB Unknown 2017 SAB Unknown 2022 Ectopic Unknown 2023 Ectopic 12/05/19 Gretel 39 live - full term 6lbs 1oz Female 12 hours epidural [facility] Dr. Erendira Velasco 02/25/22 Miguel Angel 37 live - full term Male [facility] Hal Delivery Date: 12/05/19 Last Updated by: Valerie Escoto Gestational diabetes, small for gestational age Delivery Date: 02/25/22 Last Updated by: Jaclyn Freire decl CS STAT. baby transported to [place] with anemia and passed @ 1812 of pulmonary hemorrhage Visit Details Expected Delivery Route/Plan TOLAC if able patient counseled regarding risks/benefits of trial of labor versus repeat . ACOG/uptodate education given to patient. [] % likelihood of success per calculator TOLAC consent form signed: [] Plans Covid status: [] Flu vaccine: [] Tdap vaccine: [] Rhogam: [] LARC form signed: [] Problem list reviewed and updated with the most current plan of care details and appropriate orders placed. Relevant counseling for the gestational age provided. Continue routine care and follow up unless otherwise noted in visit notes/problem list details OB Flowsheet Initial Weight: 138 lb Date -?-?-?-?-?-?-?-?-?-?-?-?- EGA Weight BP Urine Prot -?-?-?-?-?-?-?-?-?-?-?-?- Glucose FHR FuHt Pres Dilation -?-?-?-?-?-?-?-?-?-?-?-?- Effaced St Visit Note 08/23/24 -?-?-?-?-?-?-?-?-?-?-?-?- 6w 1d 138 lb 2 oz (+2 oz) 102/72 -?-?-?-?-?-?-?-?-?-?-?-?- -?-?-?-?-?-?-?-?-?-?-?-?- SM- GS 18mm and ys seen possible 1 mm early pole 08/30/24 -?-?-?-?-?-?-?-?-?-?-?-?- 7w 1d 138 lb (+0 oz) 100/70 -?-?-?-?-?-?-?-?-?-?-?-?- 130 -?-?-?-?-?-?-?-?-?-?-?-?- SM- no vb crampi ng measuring 6w4d .65cm cons with LMP 09/08/24 -?-?-?-?-?-?-?-?-?-?-?-?- 8w 3d 138 lb (+0 oz) 110/77 Negative -?-?-?-?-?-?-?-?-?-?-?-?- Negative 169 -?-?-?-?-?-?-?-?-?-?-?-?- KW- work in for spotting after vomiting. CRL cons with dates KW- work in for spotting aft er vomiting. CRL cons with dates. reassurance given and zofran given 09/15/24 -?-?-?-?-?-?-?-?-?-?-?-?- 9w 3d 138 lb 2 oz (+2 oz) 111/76 -?-?-?-?-?-?-?-?-?-?-?-?- 150 -?-?-?-?-?-?-?-?-?-?-?-?- SM- some spottin g on and off, possible irregular vascuatiry seen over cervix- recommend MFM consult in the next week or two to evaluate 10/06/24 -?-?-?-?-?-?-?-?-?-?-?-?- 12w 3d 135 lb (-3 lb) 96/69 -?-?-?-?-?-?-?-?-?-?-?-?- 160 -?-?-?-?-?-?-?-?-?-?-?-?- SM- occasional s potting, having vomiting no lof 10/20/24 -?-?-?-?-?-?-?-?-?-?-?-?- 14w 3d 134 lb 4 oz (-3 lb 12 oz) 98/66 Negative -?-?-?-?-?-?-?-?-?-?-?-?- Negative 160 -?-?-?-?-?-?-?-?-?-?-?-?- SM- no vb crampi ng nausea improving 11/09/24 -?-?-?-?-?-?-?-?-?-?-?-?- 17w 2d 132 lb 4 oz (-5 lb 12 oz) 101/67 -?-?-?-?-?-?-?-?-?-?-?-?- 155 -?-?-?-?-?-?-?-?-?-?-?-?- SM- no vb crampi ng still having nausea, plan afp today, US scheduled 12/08/24 -?-?-?-?-?-?-?-?-?-?-?-?- 21w 3d 136 lb (-2 lb) 97/66 Negative -?-?-?-?-?-?-?-?-?-?-?-?- Negative 148 -?-?-?-?-?-?-?-?-?-?-?-?- JV- anatomy scan overall normal but needs to return for repeat views in 4 weeks. Also recommended to have a 32 week and 36 week ultrasound. plan is to deliver at 37 weeks. give steroids week of 36. wants if possible. 01/06/25 -?-?-?-?-?-?-?-?-?-?-?-?- w 4d 137 lb 2 oz (-14 oz) 103/64 Negative -?-?-?-?-?-?-?-?-?-?-?-?- Negative 141 -?-?-?-?-?-?-?-?-?-?-?-?- FAVIAN dickson is wor ried about the baby's head size. She also is nervous about the OR and requests IOL (after ) wants to do wolfgang system for monitoring gl ucose as is nervous about vomiting the glucola 01/17/25 -?-?-?-?-?-?-?-?-?-?-?-?- 27w 1d 134 lb 8 oz (-3 lb 8 oz) 103/73 -?-?-?-?-?-?-?-?-?-?-?-?- 147 26 -?-?-?-?-?-?-?-?-?-?-?-?- FAVIAN Dickson's gluc ose log shows hypogylcemia down to the 50's and she is symptomatic. She is adding protein with her meals. recommend glucose tabs. She is also not gaining weight in despite a regular balanced diet. Labs ordered and will consul MFM. 02/01/25 -?-?-?-?-?-?-?-?-?-?-?-?- 29w 2d 133 lb 8 oz (-4 lb 8 oz) 90/66 -?-?-?-?-?-?-?-?-?-?-?-?- 145 27 -?-?-?-?-?-?-?-?-?-?-?-?- JV- s/p hospital stay at [facility] for hypoglycemia and decels. neither was noted during admission. she was given iv iron transfusion. now has pain and cording of right antecubital area. doppler ordered. lost another pound since last visit. start boost supplements with her meals. sees Dr. Joshi Friday. normal growth on scan at [facility] 02/07/25 -?-?-?-?-?-?-?-?-?-?-?-?- 30w 1d 134 lb 2 oz (-3 lb 14 oz) 99/68 Negative -?-?-?-?-?-?-?-?-?-?-?-?- Negative 140 30 -?-?-?-?-?-?-?-?-?-?-?-?- Sm- per mfm not tracking BS unless symptomatic, trcaking bps as needed per symptoms, watching fluid and protein intake, plan weekly bpp and nst at 32 sees mfm next week. 02/18/25 -?-?-?-?-?-?-?-?-?-?-?-?- 31w 5d 197 lb 2 oz (+59 lb 2 oz) 137 lb 2 oz (-14 oz) 94/64 -?-?-?-?-?-?-?-?-?-?-?-?- 135 31 -?-?-?-?-?-?-?-?-?-?-?-?- SM- no vb lof go od fm no regular ctx 02/22/25 -?-?-?-?-?-?-?-?-?-?-?-?- 32w 2d 137 lb 4 oz (-12 oz) 100/64 Negative -?--?-?-?-?-?-?-?-?-?-?-?- Negative 140 -?-?-?-?-?-?-?-?-?-?-?-?- JV- NSt not reac tive after 40 minutes and after giving an ensure drink. MFM wrote in last note that ac is <1st% and to deliver 38-39 weeks. sending note to clarify as we were under the impression that we would deliver by 37 weeks ROS Constitutional Constitutional: Reports systems reviewed and no addt'l complaints, except as documented Gastrointestinal Gastrointestinal: Denies bloating, constipation, cramping, diarrhea, nausea or vomiting Genitourinary Genitourinary: Reports other Details: Denies vaginal odor, vaginal bleeding, or vaginal discharge ; Denies difficulty urinating or flank pain Physical Exam HEENT normocephalic Resp normal respiratory effort and normal air movement no CVA tenderness Extremity normal to inspection General Extremity: edema bilateral (trace ) NST FHR Rate Baby A Baseline: 140 Variability:: Moderate Accelerations:: 10 x 10 Decelerations:: None NST Reactive:: Yes FHR Category:: Category I Assessment & Plan (1) Non-reactive NST (non-stress test): COMMENT: bpp 02/25 on 02/22/25 (2) Superficial venous thrombosis of arm: (3) Pain of right upper extremity: (4) Poor weight gain of : COMMENT: boost drinks with meals (5) Hypoglycemia: (6) Supervision of high-risk : COMMENT: PRR ANISA 04/17/25 boy AGUS Majano () Rod (7) History of loss: COMMENT: maternal hemorrhage, pulmonary hemorrhage s/p MFM consult - believes could have been covid related hemorrhage on recent notes. weekly BPP/dopplers, weekly nsts from 32 on, delivery 37. (wants to if possible) (8) : QUALIFIERS: Weeks of gestation: 32 weeks Qualified Code(s): Z3A.32 - 32 weeks gestation of COMMENT: NIPT low risk, nl anatomy (9) Previous section: COMMENT: if able, may struggle with PTSD in OR. (10) depression: COMMENT: counseling- PTSD, celexa. PLAN: Plan bpp 02/25. nst now reactive for gestational age. ok to dc to home. Charges/Coding Multi Select Codes Visit Charges Office Visit/Consults: 86533 OV L3 Est 20min Urinary/Genital Urinary/Genital CPT Codes: 33806-62 non-stress test Interp
== END 2025-02-22 17:45 | disposition home or self-care (01) ==
LOC: WPOUT 15:48 → WP 15:48
PROVIDERS: Referring Provider Obstetrics & Gynecology; Visit Provider Obstetrics & Gynecology
DX: O36.5930 Maternal care for other known or suspected poor fetal growth, third trimester, not applicable or unspecified (principal); I82.621 Acute embolism and thrombosis of deep veins of right upper extremity; Z3A.32 32 weeks gestation of pregnancy; Z79.82 Long term (current) use of aspirin; N96 Recurrent pregnancy loss; O99.284 Endocrine, nutritional and metabolic diseases complicating childbirth; E16.2 Hypoglycemia, unspecified; Z86.32 Personal history of gestational diabetes; O34.219 Maternal care for unspecified type scar from previous cesarean delivery; O99.413 Diseases of the circulatory system complicating pregnancy, third trimester; O22.33 Deep phlebothrombosis in pregnancy, third trimester; O99.893 Other specified diseases and conditions complicating puerperium
CPT/HCPCS: 59025; 59050; 76819; 99221; G0378

== ENCOUNTER 2025-03-04 09:29 | Outpatient (CLI) | payer OTHER, SELFPAY ==
[2025-03-04 09:35] VITALS: RESP 16; TEMP 36.6
--- NOTE | 2025-03-04 09:40 | US_ITS ---
PROCEDURE: OB BIOPHYSICAL PROF W/O NST 03/04/2025 REASON FOR EXAM: WELLBEING TECHNIQUE: OB BIOPHYSICAL PROF W/O NST COMPARISON: Prior study dated February 22, 2025. FINDINGS Number: 1 Position: Vertex Placental Position: Anterior and not low-lying. Placental Abnormalities: No evidence of previa. ESTIMATED GESTATIONAL AGE: Baseline: 33 weeks and 5 days ESTIMATED DATE OF DELIVERY: Baseline: April 17, 2025. BIOPHYSICAL ASSESSMENT: Amniotic Fluid Volume: 2.8 cm 3.1 cm Amniotic Fluid Index: 9.25 cm (8-24 cm normal range) Cardiac Motion: 135 beats per minute (average) Trunk and Limb Motion: Present. Biophysical profile: Breathing movements: 2 Gross body movements: 2 tone: 2 Amniotic fluid volume: 2 Total score: 8/8 US/OB Biophysical Prof W/O NST IMPRESSION: Normal biophysical profile with a score of 8/8 Reading Location: [place] [id number]
[2025-03-04 09:47] VITALS: BMI 25.8
[2025-03-04 09:58] VITALS: BP 107/68; PULSE 81
[2025-03-04] MEDS: Betamethasone/Betamethasone 30 MG/5 ML Vial 12 MG IM (10:12)
[2025-03-04 11:24] VITALS: BP 115/65; PULSE 79
--- NOTE | 2025-03-04 11:48 | OB.TRI.PN ---
Progress Notes Date of Service: 03/04/25 Progress Note: Patient presents for triage evaluation secondary to variable decels FHT: 140 Moderate variability reactive no decelerations category I tracing [place]: no regular, only irritatbiliy Contractions Assessment and plan: 33 weeks variable decel Reactive NST, reassuring maternal and status patient discharged to home to follow-up as scheduled, 02/25 bpp. See problem list details for additional plan information. Charges/Coding Procedures Urinary/Genital 52xxx-59xxx: 30905-83 non-stress test Interp Assessment & Plan (1) Variable heart rate decelerations, antepartum: COMMENT: steroids given 03/04 02/25 bpp
== END 2025-03-04 12:00 | disposition home or self-care (01) ==
LOC: WPOUT 09:30 → WP 09:30
PROVIDERS: Referring Provider Obstetrics & Gynecology; Visit Provider Obstetrics & Gynecology
DX: O76 Abnormality in fetal heart rate and rhythm complicating labor and delivery (principal); Z3A.33 33 weeks gestation of pregnancy
CPT/HCPCS: 59025; 59050; 76819; 96372; 99221; G0378; J0702

== ENCOUNTER 2025-03-05 10:05 | Outpatient (CLI) | payer OTHER, SELFPAY ==
[2025-03-05 10:18] VITALS: BP 105/62; PULSE 87; PULSE 94; RESP 16; TEMP 36.6; O2SAT 99
[2025-03-05 10:21] VITALS: BMI 25.5
--- OUTSIDE RECORDS SUMMARY | 2025-03-05 10:29 | XMS RPT_ITS | CCD ---
Author Organization [facility] Care Team Providers Care Manager Shift Name Role Phone Care Physician, No Primary Primary Care Provider Unavailable Care Physician, No Primary Referring Provider Un available Dossi, Dr. Bro Attending Provider [phone] Care Physician, No Primary Primary Care Provider Unavailable Care Physician, No Primary Referring Provider Un available Dossi, Dr. Bro Attending Provider [phone] Care Physician, No Primary Attending Provider Un available SAMIA Wrad Attending Provider [phone] RAJAN Witt Attending Provider Dr. Analia Mcgregor Attending Provider [phone] Dr. Saritha Salgado Attending Provider [phone] Dr. Saritha Salgado Admit Provider Dr. Saritha [...] available Dr. Analia Mcgregor Attending Provider [phone] Dr. Reginaldo Saravia Attending Provider Care Physician, [...] Erendira Holloway MD, Summer T Unavailable No qa auditor, Md Primary Care Provider [facility] Erendira Holloway MD, Summer T Unavailable Motter [facility], Whitney Unavailable Unavailable Primary Care Provider UnavailALEJANDRA Joy Admitting Unavailable ALEJANDRA TENA Attending Unavailable JOSEMANUEL STRINGER Consulting Unavailable ANALIA ZAIDI Attending Unavailab le ANALIA ZAIDI Referring Unavailab le NO PRIMARY CARE, Primary Care Unavailable NO PRIMARY CARE, Primary Care Unavailable ANALIA ZAIDI Referring Unavailab JOSEMANUEL Dykes Attending Unavailable NO PRIMARY CARE, Primary Care Unavailable ANALIA ZAIDI R Referring Unavailab le JAYSON BATES Attending Unavailable ANALIA ZAIDI Referring Unavailab le TU, [facility] [place] Primary Care Unavailable JAYSON BATES Attending Unavailable ANALIA ZAIDI Referring Unavailab PAM Everett Attending Unavailable DOC, [facility] Primary Care Unavailable DOC, [facility] Primary Care Unavailable SARITHA SALGADO Referring Unavailabl e JOSEMANUEL STRINGER Attending Unavailable NO PRIMARY CARE, Primary Care Unavailable ASHLEY VILLARREAL Attending Unavailable ASHLEY VILLARREAL Referring Unavailable NO PRIMARY CARE, Primary Care Unavailable ASHLEY VILLARREAL Attending Unavailable SARITHA SALGADO Referring Unavailabl e NO PRIMARY CARE, Primary Care Unavailable SARITHA SALGADO Referring Unavailabl e JOSEMANUEL STRINGER Attending Unavailable JAYSON BATES Attending Unavailable NO PRIMARY CARE, Primary Care Unavailable SARITHA SALGADO Referring Unavailabl e NO PRIMARY CARE, Primary Care Unavailable SARITHA SALGADO Referring Unavailabl e JOSEMANUEL STRINGER Attending Unavailable Saritha Salgado Attending Unavailable Sartiha Salgado Referring Unavailable Care Physician, No Primary Primary Care Unava ilable Vande VelAnalia fields Referring Unavailabl e Care Physician, No Primary Primary Care Unava ilable Analia Mcgregor Attending UnavailSaritha Matias Attending Unavailable Saritha Salgado Referring Unavailable Care Physician, No Primary Primary Care Unava ilable Care Physician, No Primary Primary Care Unava ilable Vande VeldeAnalia Attending Unavailabl e Vande Velde, Analia Referring Unavailabl e Care Physician, No Primary Primary Care Unava ilable Vande VeldeAnalia Attending Unavailabl e Vande Velde, Analia Referring Unavailabl e Vande Velde, Analia Attending Unavailabl e Care Physician, No Primary Referring Unava ilable Care Physician, No Primary Primary Care Unava ilable Care Physician, No Primary Primary Care Unava ilable Albaro Jimenez Attending Unavailable Saritha Salgado Referring Unavailable Marcjeramie, Saritha Attending Unavailable Care Physician, No Primary Primary Care Unava ilable Armand Veldiamond, Analia Attending Unavailabl e Care Physician, No Primary Primary Care Unava ilable Armand Veldiamond, Analia Referring Unavailabl e Marcanthony, Saritha Attending Unavailable Vernonanthoscar, Saritha Referring Unavailable Care Physician, No Primary Primary Care Unava ilable Hal, Saritha Referring Unavailable Marcanthoscar, Saritha Attending Unavailable Care Physician, No Primary Primary Care Unava ilable Vernonanthoscar, Saritha Referring Unavailable Marcanthoscar, Saritha Attending Unavailable Care Physician, No Primary Primary Care Unava ilable Damaso Whitfield Attending Unavailable Care Physician, No Primary Primary Care Unava ilable Hal, Saritha Attending Unavailable Hal, Saritha Referring Unavailable Care Physician, No Primary Primary Care Unava ilable Lottiee Veldiamond, Analia Referring Unavailabl e Care Physician, No Primary Primary Care Unava ilable Armand Kimbrough, Analia Attending Unavailabl e Care Physician, No Primary Primary Care Unava ilable Reginaldo Saravia Referring Unavailable Borcheyenne, Reginaldo Attending Unavailable Marcjeramie, Saritha Attending Unavailable Care Physician, No Primary Primary Care Unava ilable Care Physician, No Primary Referring Unava ilable Albaro Jimenez Attending Unavailable Care Physician, No Primary Primary Care Unava ilable Saritha Salgado Attending Unavailable Care Physician, No Primary Referring Unava ilable Care Physician, No Primary Primary Care Unava ilable Care Physician, No Primary Primary Care Unava ilable Analia Mcgregor Attending Unavailabl e Vande Veldiamond, Analia Referring Unavailabl e Marcanthoscar, Saritha Attending Unavailable Care Physician, No Primary Primary Care Unava ilable Care Physician, No Primary Referring Unava ilable Hal, Saritha Referring Unavailable Hal, Saritha Attending Unavailable Care Physician, No Primary Primary Care Unava ilable Analia Mcgregor Attending Unavailabl e Care Physician, No Primary Primary Care Unava ilable Care Physician, No Primary Referring Unava ilable Care Physician, No Primary Primary Care Unava ilable Isaac Perez Attending Unavailable Care Physician, No Primary Primary Care Unava ilable Albaro Scott Attending Unavailable Care Physician, No Primary Referring Unava ilable Albaro Jimenez Attending Unavailable Care [...] No Primary Referring Unava ilable Saritha Salgado Consulting Unavailable Saritha Salgado Attending Unavailable Saritha Salgado Referring Unavailable Care Physician, No Primary Primary Care Unava ilable Care Physician, No Primary Primary Care Unava ilable Jessica Reyes Attending Unavailable Care Physician, No Primary Referring Unava ilable Care Physician, No Primary Primary Care Unava ilable Lottiee Luis E, Analia Attending Unavailabl e Vande Velde, Analia Consulting Unavailabl e Vande Velde, Analia Referring Unavailabl e Vande Velde, Analia Referring Unavailabl e Care Physician, No Primary Primary Care Unava ilable Armand Kimbrough, Analia Attending Unavailabl e Vande Velde, Analia Consulting Unavailabl e Vande Velde, Analia Attending Unavailabl e Care Physician, No Primary Referring Unava ilable [...] Attending Unavailabl e Care Physician, No Primary Referring Unava ilable Albaro Jimenez Attending Unavailable Care Physician, No Primary Primary Care Unava ilable Saritha Salgado Attending Unavailable Care Physician, No Primary Primary Care Unava ilable Care Physician, No Primary Referring Unava ilable Care Physician, No Primary Primary Care Unava ilable Gunnar Chu Attending Unavailable Analia Mcgregor Referring Unavailabl e Saritha Salgado Attending Unavailable Care Physician, No Primary Referring Unava ilable Care Physician, No Primary Primary Care Unava ilable Albaro Jimenez Attending Unavailable Care Physician, No Primary Primary Care Unava ilable Jessica Reyes Attending Unavailable Care Physician, No Primary Primary Care Unava ilable Care Physician, No Primary Referring Unava ilable Saritha Salgado Attending Unavailable Saritha Salgado Referring Unavailable Care Physician, No Primary Primary Care Unava ilable Brian Dominguez Referring Unavailable Care Physician, No Primary Primary Care Unava ilable Brian Dominguez Attending Unavailable Saritha Salgado Attending Unavailable Saritha Salgado Referring Unavailable Care Physician, No Primary Primary Care Unava ilable Allergies Allergy Classification Reported Allergen(s) Allergy Type Date of Onset Reaction(s) Facility (5 sources) Doxycycline; Translations: [DOXYCYCLINE] Drug Allergy 2 Rash, Nausea Only [facility] (3 sources) Minocycline; Translations: [MINOCYCLINE] Drug Allergy 6 Nausea Only [facility] (3 sources) Ondansetron; Translations: [ONDANSETRON] Drug Allergy 2 Other (See Comments), GI Intolerance [facility] (1 source) Doxycycline Drug Allergy 5 [facility] Repository Medications Current Medications Medication Drug Class(es) Dates Sig (Normalized) Sig (Original) albuterol 0.83 mg/ml inhalation solution (1 source) beta2-Adrenergic Agonist albuterol (VENTOLIN) (2.5 MG/3ML) 0.083% nebulizer solution Use 2.5 mg by nebulization every 4 hours Active 12 hr buPROPion hydrochloride 150 mg extended release oral tablet (5 sources) Aminoketone Start: 01-28-2025 End: 01-27-2025 take 150 mg by mouth twice daily 150 mg, Oral, 2 times daily, First dose (after last modification) on Fri01/28/25 at 0900, Do not crush, chew, or split. Start: 01-28-2025 End: 01-27-2025 take 150 mg by mouth twice daily 150 mg, Oral, 2 times daily, First dose (after last modification) on Fri01/28/25 at 0900, Do not crush, chew, or split. Start: 08-18-2024 take 1 tablet by shanthi twice daily buPROPion SR (Wellbutrin SR) 150 MG 12 hr tablet Take 150 mg by mouth twice a day. 08/18/2024 Active citalopram 20 mg oral tablet (20 sources) Serotonin Reuptake Inhibitor Start: 03-12-2022 End: 10-17-2022 take 20 mg by mouth once daily Citalopram Active 20 MG PO DAILY October 30, 2022 11:03am ethinyl estradiol 0.02 mg / levonorgestrel 0.1 mg oral tablet (20 sources) Progestin, Estrogen, Progestin-containin g Intrauterine Device Start: 04-27-2022 AUBRA EQ 0.1-20 [...] MG PO DAILY July 04, 2022 12:00am LORazepam 0.5 mg oral tablet (20 sources) Benzodiazepine Start: 02-25-2022 End: 04-15-2022 LORazepam (ATIVAN) 0.5 MG tablet 04/15/2022 Active Multiple Vitamins-Mineral s (WOMENS MULTI VITAMIN & MINERAL PO) (1 [...] 09-08-2024 take 1 tablet by mouth every eight hours as needed for nausea ondansetron ODT (Zofran-ODT) 4 MG disintegrating tablet Take 4 mg by mouth every 8 hours as needed for nausea. 09/08/2024 Active Start: 09-08-2024 take 1 tablet by shanthi th every six hours as needed for nausea [...] Start: 08-20-2021 take 2 tablets by mo ut once daily No.144-Folic Acid () 400 mcg Tablet,Chewable Active 2 TABLET PO DAILY August 20, 2021 1:00am progesterone 200 mg oral capsule (1 source) Progesterone Start: 07-28-2024 Progesterone (PROMETRIUM) 200 MG 1 CAPS VAGINALLY AT BEDTIME FOR 30 DAYS CONTINUE UNTIL 10 WEEKS 07/28/2024 Active vitamin b6 100 mg oral tablet (2 sources) take 1 tablet by mouth once daily pyridoxine (Vitamin B-6) 100 MG tablet Take 100 mg by mouth daily. Active Completed/Discontinued Medications Medication Drug Class(es) Dates Sig (Normalized) Sig (Original) acetaminophen 325 mg oral tablet (3 sources) Start: 01-27-2025 End: 01-27-2025 take 1 tablet by mouth every four hours as needed for pain Acetaminophen (T YLENOL) 325 MG CAPS Take by mouth Active acetaminophen 325 mg / oxyCODONE hydrochloride 5 mg oral tablet (20 sources) Opioid Agonist Start: 01-31-2023 End: 02-07-2023 take 1 tablet by mouth every six hours Oxycodone-Acetaminophen (Percocet) 5-325 mg tablet Discontinued 1 TABLET PO EVERY 6 HOURS 04 26January 31, 2023 February 06, 2023 11:04pm Start: [...] 17, 2022 11:00pm March 12, 2022 10:56am calcium chloride 0.0014 meq/ml / potassium chloride 0.004 meq/ml / sodium chloride 0.103 meq/ml / sodium lactate 0.028 meq/ml injectable solution (4 sources) Start: 01-27-2025 End: 01-27-2025 take 125 mL intravenously every hour 125 mL/hr, IntraVENous, Continuous, Starting on [facility] 01/27/25 at 0515 Start: 01-27-2025 End: 01-27-2025 1,000 mL, IntraVENous, at 50 0 mL/hr, Administer over 2 Hours, Once, On [facility] 01/27/25 at 0030, For 1 dose cephalexin 500 mg oral capsule (20 sources) [...] 10 MG PO THREE TIMES A DAY 20 5 September 09, 2022 12:00am September 14, 2022 12:12am [...] 24, 2021 11:00pm January 28, 2022 9:13am hydrOXYzine hydrochloride 10 mg oral tablet (3 sources) Antihistamine Start: 07-06-2024 End: 01-27-2025 take 1 tablet by mouth every six hours as needed for anxiety hydrOXYzine HCl (Atarax) 10 MG tablet Take 10 mg by mouth every 6 hours as needed for anxiety. 07/06/2024 01/27/2025 Discontinued (Stop taking at discharge) Start: 07-06-2024 take 1 tablet by shanthi th three times daily as needed for anxiety hydrOXYzine (ATARAX) 10 MG tablet 1 TAB ORALLY THREE TIMES A DAY NEEDED FOR ANXIETY 07/06/2024 Active ibuprofen 600 mg oral tablet (20 sources) Nonsteroidal Anti-inflammatory Drug Start: 12-06-2019 End: 03-03-2021 take 600 mg by mouth three times daily Ibuprofen Discontinued 600 MG PO THREE TIMES A DAY December 06, 2019 5:17am March 03, 2021 11:11am iron sucrose (Venofer) 300 mg in sodium chloride 0.9 % 250 mL IVPB (2 sources) Start: 01-27-2025 End: 01-27-2025 300 mg, IntraVENous, at 166.7 mL/hr, Administer over 90 Minutes, Once, On [facility] 01/27/25 at 1000, For 1 dose, Observe for signs and symptoms of hypersensitivity and/or anaphylactic-type reactions per institutional standard during and following administration. meclizine hydrochloride 25 mg oral tablet (18 [...] 09, 2022 12:00am September 15, 2022 12:05am 2 ml metoclopramide 5 mg/ml prefilled syringe (2 sources) Dopamine-2 Receptor Antagonist Start: 01-27-2025 End: 01-27-2025 10 mg, IntraVENous, Once, On Fri01/27/25 at 0030, For 1 dose ondansetron ODT (Zofran-ODT) disintegrating tablet 4 mg (2 sources) Start: 01-27-2025 End: 01-27-2025 take 1 tablet by mouth every eight hours as needed for nausea and vomiting ondansetron ODT (Zofran-ODT) disintegrating tablet 4 mg vitamin tablet (2 sources) Start: 01-27-2025 End: 01-27-2025 take 1 tablet by mouth once daily 1 tablet, Oral, Daily, First dose on Fri01/27/25 at 0900 promethazine hydrochloride 25 mg oral tablet (20 sources) Phenothiazine Start: 08-20-2021 End: 01-18-2022 take 12.5-25 mg by mouth every four hours Promethazine Discontinued 12.5 - 25 MG PO Q4H August 20, 2021 12:00am January 18, 2022 1:11pm 5 ml sodium chloride 9 mg/ml injection (6 sources) Start: 01-27-2025 End: 01-27-2025 Start: 01-27-2025 End: 01-27-2025 Problems Active Problems Problem Classification Problem Date [...] diabetes mellitus in , unspecified control] Episodic Ectopic (20 sources) Ectopic ; Translations: [Unspecified ectopic without intrauterine ] 01-26-2023 Episodic Female infertility (1 source) Female infertility associated with anovulation; Translations: [Female infertility associated with anovulation] Onset: 05-27-2024 Chronic Headache; including migraine (20 sources) Frequent headache; Translations: [Frequent headaches] 02-01-2022 Episodic Immunizations and screening for infectious disease (20 sources) Contact with or exposure to other viral diseases; Translations: [Exposure to COVID-19 virus] Onset: 02-01-2025 Episodic Menstrual disorders (19 sources) Amenorrhea; Translations: [Amenorrhea, unspecified] Onset: 04-16-2024 10-31-2022 Chronic Miscellaneous mental health disorders (20 sources) depression; Translations: [ depression] Onset: 02-22-2025 08-02-2022 Episodic Other bone disease and musculoskeletal [...] or unspecified] 05-03-2022 Episodic Other complications of (2 sources) Maternal care for abnormalities of the heart rate or rhythm, unspecified trimester, not applicable or unspecified; Translations: [Maternal care for abnormalities of the heart rate or rhythm, unspecified trimester, not applicable or unspecified] Onset: 03-04-2025 Episodic Other complications of (2 sources) Low weight gain in , unspecified trimester; Translations: [Low weight gain in , unspecified trimester] Onset: 02-22-2025 Episodic Other complications of (2 sources) Supervision of high risk , unspecified, unspecified trimester; Translations: [Supervision of high risk , unspecified, unspecified trimester] Onset: 02-22-2025 Episodic Other complications of (1 source) Other abnormal findings on screening of mother; Translations: [Other abnormal findings on screening of mother] Onset: 03-03-2025 Episodic Other complications of (1 source) Maternal care for other known or suspected poor growth, third trimester, not applicable or unspecified; Translations: [Maternal care for other known or suspected poor growth, third trimester, not applicable or unspecified] Onset: 03-03-2025 Episodic Other complications of (1 source) Supervision of with other poor reproductive or obstetric history, second trimester; Translations: [Supervision of with other poor reproductive or obstetric history, second trimester] Onset: 02-23-2025 Episodic Other connective tissue disease (2 sources) Pain in right arm; Translations: [Pain in right arm] Onset: 02-22-2025 Episodic Other endocrine disorders (4 sources) Hypoglycemia; Translations: [Hypoglycemia, unspecified] Onset: 01-27-2025 01-27-2025 Chronic Other endocrine disorders (4 sources) Hypoglycemia, unspecified; Translations: [Hypoglycemia, unspecified] Onset: 01-26-2025 Chronic Other injuries and conditions due to [...] Onset: 12-08-2024 Chronic Other conditions (2 sources) affected by other forms of placental separation and hemorrhage; Translations: [Other forms of placental separation and hemorrhage affecting fetus or ] 05-12-2022 Episodic Other skin disorders (20 sources) Skin tag; Translations: [Other hypertrophic disorders of the skin] 02-01-2022 Episodic Other upper respiratory infections (20 sources) Viral upper respiratory tract infection; Translations: [Acute upper respiratory infection, unspecified] Episodic Phlebitis; thrombophlebitis and thromboembolism (2 sources) Acute embolism and thrombosis of superficial veins of unspecified upper extremity; Translations: [Acute embolism and thrombosis of superficial veins of unspecified upper extremity] Onset: 02-22-2025 Episodic Residual codes; unclassified (20 sources) Gestation period, 39 weeks; Translations: [39 weeks gestation of ] 12-13-2020 Episodic Residual codes; unclassified (5 sources) Personal history of other complications of , childbirth and the puerperium; Translations: [Personal history of other genital system and obstetric disorders] Onset: 03-03-2025 05-12-2022 Episodic Residual codes; unclassified (2 sources) History of growth retardation; Translations: [Personal history of other specified conditions] 05-12-2022 Episodic Residual codes; unclassified (2 sources) History of uterine scar from previous surgery; Translations: [History of uterine scar from previous surgery] Onset: 02-22-2025 Episodic Residual codes; unclassified (2 sources) 32 weeks gestation of ; Translations: [32 weeks gestation of ] Onset: 02-22-2025 Episodic Residual codes; unclassified (1 source) 31 weeks gestation of ; Translations: [31 weeks gestation of ] Onset: 02-18-2025 Episodic Residual codes; unclassified (1 source) 30 weeks gestation of ; Translations: [30 weeks gestation of ] Onset: 02-07-2025 Episodic Residual codes; unclassified (1 source) 29 weeks gestation of ; Translations: [29 weeks gestation of ] Onset: 02-01-2025 Episodic Residual codes; unclassified (2 sources) 27 weeks gestation of ; Translations: [27 weeks gestation of ] Onset: 01-17-2025 Episodic Screening and history of mental health [...] [Dizziness and giddiness] Onset: 10-06-2024 10-17-2022 Episodic Fluid and electrolyte disorders (1 source) [...] , unspecified, unspecified trimester] Onset: 10-06-2024 Episodic Other screening for suspected conditions (not mental disorders or infectious disease) (1 source) Encounter for screening, unspecified; Translations: [Encounter for screening, unspecified] Onset: 11-12-2024 Episodic Residual codes; unclassified (2 sources) Family history of cancer; Translations: [Family history of malignant neoplasm, unspecified] Resolved: 10-01-2024 05-12-2022 Episodic Residual codes; unclassified (1 source) 17 weeks gestation of ; Translations: [17 weeks gestation of ] Onset: 11-09-2024 Episodic Residual codes; unclassified (1 source) 12 weeks gestation of ; Translations: [12 weeks gestation of ] Onset: 10-06-2024 Episodic Residual codes; unclassified (1 source) 8 weeks gestation of ; Translations: [8 weeks gestation of ] Onset: 09-08-2024 Episodic Unclassified (20 sources) Cyst of face; Translations: [Cyst of face] 02-01-2022 Results Test Name Value Interpretation Reference Range Facility OB Biophysical Prof W/O NSTo n 03-04-2025 OB Biophysical Prof W/O NST Normal [facility] OB Triage Progress Noteon OB Triage Progress Note Normal [facility] Malt Loader Office Visit Reporton 03-04-2025 Malt Loader Office Visit Report Normal [facility] OB Biophysical Prof W/O NSTo n 02-22-2025 OB Biophysical Prof W/O NST Normal [facility] OB Triage Physician Noteon 0 02-22-2025 OB Triage Physician Note Normal [facility] Malt Loader Office Visit Reporton 02-22-2025 Malt Loader Office Visit Report Normal [facility] Malt Loader Office Visit Reporton 02-18-2025 Malt Loader Office Visit Report Normal [facility] Progress Noteon 02-17-2025 License Inspector Authentication Interface Message Text [facility] Co-Management Visit Yessi Anne is being seen today for an obstetrical visit. She is at 31w4d gestation. Her obstetrical history is significant for Dizziness and fatigue worsening throughout the day and of standing. HPI Patient doing well today. Patient states that overall she still has dizziness while sitting at the room moves however when she closes her eyes she feels that she is moving as well. She sometimes gets darkness shot around her eyes/darkening vision when she stands up too fast but she is not even dizzy when laying down. We discussed neurology consult. We reviewed increased p.o. intake and fluid intake. Review of systems: negative besides above BP 106/58 Pulse 92 Resp 16 Ht (!) 154.9 cm Wt 62.6 kg (138 lb) LMP 07/11/2024 SpO2 98% BMI 26.09 kg/m Orthostatic blood pressures were done today that were normal. Blood pressure 98/62, 100/62, 96/62 Exam: Deferred Assessment/Plan: Yessi Anne is a 35 y.o. at 31w4d with: 1. related fatigue in third trimester (Primary) Overview: She is in her third full-term and sixth overall, experiencing significant fatigue and difficulty gaining weight despite adequate intake. Symptoms include perceived hypoglycemia with normal glucose levels, soft blood pressure, and no orthostatic hypertension. These may be related to blood pressure fluctuations due to uterine compression of vessels, particularly the IVC, as progresses. Her legs feel tired and heavy, but no general weakness is noted. No significant changes in heart rate or thyroid function are expected. Weekly monitoring is in place, with delivery planned at 37 weeks due to history. Continue weekly monitoring until delivery. Encourage journaling of symptoms, including time of day and precipitating factors. Increase caloric intake with protein drinks and weight gainers, using whole milk for additional calories. Monitor blood pressure during symptomatic episodes, both sitting and after episodes. Repeat thyroid testing to confirm normal function. Blood pressure fluctuations during Her blood pressure is soft, with no orthostatic hypertension detected. Symptoms of lightheadedness and fatigue may be related to blood pressure fluctuations due to uterine compression of vessels as progresses. Heart rate is steady, with no significant changes expected until 28-32 weeks when blood pressure and heart rate typically increase. Monitor blood pressure during symptomatic episodes, both sitting and after episodes. Encourage journaling of symptoms, including time of day and precipitating factors. Nausea and heartburn during She experiences nausea and heartburn, particularly after consuming certain foods like tomatoes. Zofran is effective for nausea, and heartburn is predictable based on dietary choices. Continue Zofran as needed for nausea. Start Prilosec for heartburn management. Depression/Anxiety She is currently on Wellbutrin with no recent dose changes. Her psychiatrist has reduced the frequency of visits, indicating a well-managed condition. Anxiety is managed with self-awareness and support from her spouse. No current therapy, but she is aware of available resources if needed . Continue Wellbutrin as prescribed. Consider therapy if needed, with access to a clinical psychologist available within a week. Plan Symptom journal Increase water intake and overall volume. PPI as needed Follow-up in 2 weeks T4 testing recommended by primary 02/17/2025 T4 normal Patient still having symptoms that are overall the same as previous. Blood pressures are 90s over 50s to 90s over 60s however no change with orthostatic challenge. Consider neurology consult. Patient given vasovagal precautions. Follow-up in 4 weeks. Jayson Bates MD The total time spent on patient care today was 20 minutes. -20 minutes direct patient care -40 minutes chart review and documentation Normal [facility] Free T3on 02-07-2025 Free T3 [Mass/Vol] 2.2 pg/mL Normal 2.18-3.98 [facility] Comment on above: Performed By: #### L 506.0400, L501.00141, [id number] ####[facility] [address] [place], [address] Malt Loader Office Visit Reporton 02-07-2025 Malt Loader Office Visit Report Normal [facility] T4 Free Directon 02-07-2025 T4 FREE DIRECT 1.00 ng/dL Normal 0.76-1.46 [facility] Comment on above: Performed By: #### L 506.0400, L501.71725, L501.9520 ####[facility] [address] [place], [address] Thyroid Stim Hormone (TSH)on 02-07-2025 TSH 1.360 uIU/mL Normal 0.300-4.200 [facility] Comment on above: Performed By: #### L 506.0400, L501.66152, L501.9520 ####[facility] [address] [place], [address] Progress Noteon 02-04-2025 License Inspector Authentication Interface Message Text [facility] Co-Management Visit Yessi Anne is being seen today for an obstetrical visit. She is at 29w5d gestation. Her obstetrical history is significant for IUFD. HPI Patient doing well today. History of Present Illness Yessi Anne is a 34 year old female who presents with fatigue and lightheadedness during her third full-term . At 33 weeks of gestation, she experiences significant fatigue and lightheadedness, especially when transitioning from sitting to standing. Her legs feel exhausted and require time to reacclimate after standing. Despite these symptoms, her blood sugar levels are normal, and she does not experience sweating or fainting when standing for long periods. She has not gained weight and remains three pounds below her pre- weight, despite constant eating and adequate hydration. She consumes approximately 60 ounces of water daily and a small amount of caffeine. Her current medications include B6, Zofran as needed, hydroxyzine PRN, Wellbutrin twice daily, and baby aspirin, which was added this week. She sleeps well at night without symptoms while lying down. Her legs feel tired and heavy, but she does not experience blacking out or tunnel vision when standing. She has a history of loss and is monitored weekly. She reports no current anxiety issues but acknowledges hormonal fluctuations and emotional changes during . She has a supportive spouse who checks in on her well-being. Review of systems: negative besides above BP 92/55 Pulse 106 Resp 18 Wt 61.3 kg (135 lb 1.6 oz) LMP 07/11/2024 SpO2 96% BMI 25.53 kg/m Physical Exam GENERAL APPEARANCE: Well appearing and in no distress. Able to stand for approximately 10 minutes without symptoms of hypotension. MENTAL STATUS: Alert, oriented to person, place, and time. PULMONARY: No difficulty with breathing. CARDIOVASCULAR: Normal Rate. ABDOMEN: Non tender during exam PELVIC: Deferred. EXTREMITIES: No edema noted. MUSCULOSKELETAL: Strength 5/5 in all extremities. Results LABS Thyroid function tests: Within normal limits Assessment/Plan: Yessi Anne is a 34 y.o. at 29w5d with: 1. related fatigue in third trimester (Primary) Overview: She is in her third full-term and sixth overall, experiencing significant fatigue and difficulty gaining weight despite adequate intake. Symptoms include perceived hypoglycemia with normal glucose levels, soft blood pressure, and no orthostatic hypertension. These may be related to blood pressure fluctuations due to uterine compression of vessels, particularly the IVC, as progresses. Her legs feel tired and heavy, but no general weakness is noted. No significant changes in heart rate or thyroid function are expected. Weekly monitoring is in place, with delivery planned at 37 weeks due to history. Continue weekly monitoring until delivery. Encourage journaling of symptoms, including time of day and precipitating factors. Increase caloric intake with protein drinks and weight gainers, using whole milk for additional calories. Monitor blood pressure during symptomatic episodes, both sitting and after episodes. Repeat thyroid testing to confirm normal function. Blood pressure fluctuations during Her blood pressure is soft, with no orthostatic hypertension detected. Symptoms of lightheadedness and fatigue may be related to blood pressure fluctuations due to uterine compression of vessels as progresses. Heart rate is steady, with no significant changes expected until 28-32 weeks when blood pressure and heart rate typically increase. Monitor blood pressure during symptomatic episodes, both sitting and after episodes. Encourage journaling of symptoms, including time of day and precipitating factors. Nausea and heartburn during She experiences nausea and heartburn, particularly after consuming certain foods like tomatoes. Zofran is effective for nausea, and heartburn is predictable based on dietary choices. Continue Zofran as needed for nausea. Start Prilosec for heartburn management. Depression/Anxiety She is currently on Wellbutrin with no recent dose changes. Her psychiatrist has reduced the frequency of visits, indicating a well-managed condition. Anxiety is managed with self-awareness and support from her spouse. No current therapy, but she is aware of available resources if needed . Continue Wellbutrin as prescribed. Consider therapy if needed, with access to a clinical psychologist available within a week. Plan Symptom journal Increase water intake and overall volume. PPI as needed Follow-up in 2 weeks T4 testing recommended by primary 2. History of delivery Overview: With last G3 Miguel Angel 3. 29 weeks gestation of Jayson Bates MD The total time spen (more content not included)... Normal [facility] Malt Loader Office Visit Reporton 02-01-2025 Malt Loader Office Visit Report Normal [facility] Venous Duplex US, Unilateral on 02-01-2025 Venous Duplex US, Unilateral Normal [facility] C-Peptideon 01-28-2025 C PEPTIDE 3.1 ng/mL Normal 1.1-4.4 [facility] Comment on above: Result Comment: C-Pe ptide reference interval is for fasting patients. Performed By: #### L 3100.7750, L3300.3500, L509.7001 ####[facility] [address] [place] [id number] Celiac Disease Profileon ENDOMYSIAL IGA Negative Normal Negative [facility] Comment on above: Performed By: #### L 3410.2400 ####[facility] [address] [facility] [address] IMMUNOGLOB A QN 161 mg/dL Normal 87-352 [facility] Comment on above: Result Comment: Perf ormed at: - [facility] [address] [id number] Director: Joseph Doe PhD, Phone: [phone] Performed By: #### L 3410.2400 ####[facility] [address] [place] [place], [address] tTG IGA <2 Normal 0-3 [facility] Comment on above: Result Comment: Nega tive 0 - 3 Weak Positive 4 - 10 Positive >10 Tissue Transglutaminase (tTG) has been identified as the endomysial antigen. Studies have demonstr- ated that endomysial IgA antibodies have over 99% specificity for gluten sensitive enteropathy. Performed By: #### L 3570.2400 ####[facility] [address] [place], [place], [address] Insulin Levelon 01-28-2025 INSULIN,FASTING 24.6 uIU/mL Normal 2.6-24.9 [facility] Comment on above: Result Comment: Perf ormed at: - [facility] [address] [id number] Director: Joseph Doe PhD, Phone: [phone] Performed By: #### L 8299.9966, V2717.3846, R305.5212 ####[facility] [address] [place], [place], [address] [id number] 01-27-2025 [id number] Date: 01/27/2025 Name: Yessi Anne : 1990 [facility] Patient Information Primary Caregiver: Self Accompanied by/Relationship: S/O;Family Marital Status: Support System: SO/Family Sikh/Cultural Factors: None Activities of Daily Living Communication: See demographics Living Arrangements Current Residence: Private residence Lives With: S/O; Family Support System: S/O; Family Income Information Income Source: Employed Financial Resource Strain How hard is it for you to pay for the very basics like food, housing, medical care and heating? N/A Housing Stability In the last 12 months, was there a time when you did not have a steady place to sleep or slept in a penitentiary (including now)? No Transportation Needs Has the lack of Transportation kept you from medical appointments? No In the past 12 months, has the lack of transportation kept you from meetings, work, or from getting things needed for daily living? No Food Insecurity Within the past 12 months, have you worried that your food would run out before you got the money to buy more? No Stress Do you feel stress - tense, restless, nervous, or anxious, or unable to sleep at night because you mind is troubled all the time? Mood stable Referral To Financial Resources: N/A Community Resources: PNU folder given upon admission to PNU Unit Social Work: N/A CLP: N/A Medical Information 34 year old admitted for hypoglycemia at 28/4 weeks. 6 Para 2. MFM consult Discharge Plan Home or Community Resources: PNU Admission folder given upon admission to unit Equipment: N/A Education Given: PNU admit folder and see Education Tab Additional Information: N/A Mental Health Services: N/A Developmental Delay: N/A Children's Services: N/A Normal [facility] ABO and Rh group Confirm Nom (Bld)on 01-27-2025 ABO group Nom (Bld) [facility] Ql (RBC) Positive [facility] BLOOD TYPE AND SCREEN GELon 01-27-2025 ABO GROUPING A Normal [facility] Comment on above: Order Comment: HOLD. Specimen is valid for 3 days - nurse to verify valid specimen Performed By: #### L [id number] #### Classroom Coordinator: RADHA VASQUEZ ([id number]) [facility]LOOD [facility] ([facility]) [address] [place] [address] RH TYPE IN BLOOD Positive Normal [facility] Comment on above: Order Comment: HOLD. Specimen is valid for 3 days - nurse to verify valid specimen Performed By: #### L [id number] #### Classroom Coordinator: RADHA VASQUEZ ([phone]) [facility] BLOOD [facility] ([facility]) [address] [place] [address] Bedside Glucoseon 01-27-2025 FINGERSTICK GLU 122 mg/dL High 74-106 [facility] Comment on above: Result Comment: ERIBERTO GIRALDO OF PATIENT CARE PER NURSING PROTOCOL Performed By: #### L 501.080 ####[facility] [address] [place], [place], [id number] Blood type and Crossmatch pa gemini (Bld)on 01-27-2025 ABO group Nom (Bld) A [facility] Blood group antibody screen GEL Ql Negative [facility] [employer] D Ag Ql (RBC) Positive [facility] CBC (HEMOGRAM)on 01-27-2025 Erythrocyte distribution width (RBC) [Ratio] 12.2 % Normal 11.5-15.0 [facility] Comment on above: Performed By: #### L [id number] #### Classroom Coordinator: RADHA VASQUEZ ([id number]) [facility]) [address] [place] [address] Hematocrit (Bld) [Volume fraction] 28.3 % Low 35.0-47.0 [facility] Comment on above: Performed By: #### L [id number] #### Classroom Coordinator: RADHA VASQUEZ ([id number]) [facility]) [address] [place] [address] Hemoglobin (Bld) [Mass/Vol] 9.5 g/dL Low 11.7-16.0 [facility] Comment on above: Performed By: #### L [id number] #### Classroom Coordinator: RADHA VASQUEZ ([id number]) [facility]) [address] [place] [address] MCH (RBC) [Entitic mass] 30.5 pg Normal 26.0-34.0 [facility] Comment on above: Performed By: #### L [id number] #### Classroom Coordinator: RADHA VASQUEZ ([id number]) [facility] ([facility]) [address] [place] [address] MCHC 33.6 % Normal 30.5-36.0 [facility] Comment on above: Performed By: #### L [id number] #### Classroom Coordinator: RADHA VASQUEZ ([id number]) [facility]) [address] [place] [address] MCV (RBC) [Entitic vol] 91.0 fL Normal 77.0-99.0 [facility] Comment on above: Performed By: #### L [id number] #### Classroom Coordinator: RADHA VASQUEZ ([id number]) [facility]) [address] [place] [address] Platelet mean volume (Bld) [Entitic vol] 11.3 fL Normal 9.0-12.7 [facility] Comment on above: Performed By: #### L [id number] #### Classroom Coordinator: RADHA VASQUEZ ([id number]) [facility] [address] [place] [address] Platelets (Bld) [#/Vol] 261 10*3/uL Normal 140-440 [facility] Comment on above: Performed By: #### L [id number] #### Classroom Coordinator: RADHA VASQUEZ ([id number]) [facility]) [address] [place] [address] RBC (Bld) [#/Vol] 3.11 10*6/uL Low 3.80-5.20 [facility] Comment on above: Performed By: #### L [id number] #### Classroom Coordinator: RADHA VASQUEZ ([id number]) [facility]) [address] [place] [address] WBC (Bld) [#/Vol] 9.0 10*3/uL Normal 3.6-10.7 [facility] Comment on above: Performed By: #### L [id number] #### Classroom Coordinator: RADHA VASQUEZ ([id number]) [facility] ([facility]) [address] [place] [address] CBC panel Auto (Bld)on 01-27 Erythrocyte distribution width (RBC) [Ratio] 12.2 % 11.5 - 15.0 % [facility] Hematocrit (Bld) [Volume fraction] 28.3 % Low 35.0 - 47.0 % [facility] Hemoglobin (Bld) [Mass/Vol] 9.5 g/dL Low 11.7 - 16.0 g/dL [facility] Interpretation and review of laboratory results Abnormal [facility] MCH (RBC) [Entitic mass] 30.5 pg 26.0 - 34.0 pg [facility] MCHC (RBC) [Mass/Vol] 33.6 % 30.5 - 36.0 % [facility] MCV (RBC) [Entitic vol] 91 fL 77.0 - 99.0 fL [facility] Platelet mean volume (Bld) [Entitic vol] 11.3 fL 9.0 - 12.7 fL [facility] Platelets (Bld) [#/Vol] 261 10*3/uL 140 - 440 10*3/uL [facility] RBC (Bld) [#/Vol] 3.11 10*6/uL Low 3.80 - 5.2 0 10*6/uL [facility] WBC (Bld) [#/Vol] 9 10*3/uL 3.6 - 10.7 10*3/uL [facility] CHLAMYDIA/GONORRHEAon 2024 CHLAMYDIA/GONORRHEA NEISSERIA GONORRHOEA E DNA PROBE Reference Not Detected Not Detected CHLAMYDIA TRACHOMATIS DNA PROBE Reference Not Detected Not Detected ORDER COMMENTS: Methodology: real-time PCR This test is intended for medical purposes only and is not intended for the evaluation of suspected sexual abuse or for other forensic purposes. In certain contexts, culture may be required to meet applicable laws and regulations for diagnosis of C. trachomatis and N. gonorrhoeae infections. Per 2014 CDC recommmendations, this test does not include confirmation of positive results by an alternative nucleic acid target. A negative result does not exclude the possibility of infection. A result of invalid indicates that a new specimen should be collected if clinically indicated. Normal [facility] Comment on above: Performed By: #### L [id number], [id number] #### Classroom Coordinator: RADHA VASQUEZ ([phone]) [facility]) [address] [place] [address] COMPREHENSIVE METABOLIC PANE Rico 01-27-2025 Albumin [Mass/Vol] 2.5 g/dL Low 3.5-5.0 [facility] Comment on above: Performed By: #### L [id number] #### Classroom Coordinator: RADHA VASQUEZ ([id number]) [facility]) [address] [place] [address] ALP [Catalytic activity/Vol] 75 U/L Normal 40-150 [facility] Comment on above: Performed By: #### L [id number] #### Classroom Coordinator: RADHA VASQUEZ ([id number]) [facility]) [address] [place] [address] ALT [Catalytic activity/Vol] 6 U/L Normal <30 [facility] Comment on above: Performed By: #### L [id number] #### Classroom Coordinator: RADHA [id number]) [facility]) [address] [place] [address] Anion gap [Moles/Vol] 6 mmol/L Normal 3-13 [facility] Comment on above: Performed By: #### L [id number] #### Classroom Coordinator: RADHA VASQUEZ ([id number]) [facility]) [address] [place] [address] AST [Catalytic activity/Vol] 18 U/L Normal <34 [facility] Comment on above: Performed By: #### L [id number] #### Classroom Coordinator: RADHA VASQUEZ ([id number]) [facility] ([facility]) [address] [place] [address] Bilirubin [Mass/Vol] 0.2 mg/dL Normal <1.2 [facility] Comment on above: Performed By: #### L [id number] #### Classroom Coordinator: RADHA VASQUEZ ([id number]) [facility] ([facility]) [address] [place] [address] Calcium [Mass/Vol] 8.5 mg/dL Normal 8.4-10.2 [facility] Comment on above: Performed By: #### L [id number] #### Classroom Coordinator: RADHA VASQUEZ ([id number]) [facility]) [address] [place] [address] Chloride [Moles/Vol] 106 mmol/L Normal 98-107 [facility] Comment on above: Performed By: #### L [id number] #### Classroom Coordinator: RADHA VASQUEZ ([id number]) [facility]) [address] [place] [address] [place] CO2 [Moles/Vol] 22 mmol/L Normal 22-29 [facility] Comment on above: Performed By: #### L [id number] #### Classroom Coordinator: RADHA VASQUEZ ([id number]) [facility]) [address] [place] [address] Creatinine [Mass/Vol] 0.68 mg/dL Normal 0.57-1.11 [facility] Comment on above: Performed By: #### L [id number] #### Classroom Coordinator: RADHA [id number]) [facility]) [address] [place] [address] GLOMERULAR FILTRATION RATE ML/MIN/1.73 SQ M.PREDICTED >90.0 Normal >60.0 [facility] Comment on above: Result Comment: Calc ulation based on the Chronic Kidney Disease Epidemiology Collaboration (CKD-EPI) equation refit without adjustment for race Performed By: #### L [id number] #### Classroom Coordinator: RADHA VASQUEZ ([id number]) [facility] ([facility]) [address] [place] [address] Glucose [Mass/Vol] 79 mg/dL Normal 74-100 [facility] Comment on above: Performed By: #### L [id number] #### Classroom Coordinator: RADHA VASQUEZ ([id number]) [facility]) [address] [place] [address] Potassium [Moles/Vol] 3.5 mmol/L Normal 3.5-5.1 [facility] Comment on above: Result Comment: Plas ma potassium values may be up to 0.5 mmol/L lower than serum values. Performed By: #### L [id number] #### Classroom Coordinator: RADHA VASQUEZ ([phone]) [facility]) [address] [place] [address] [place] Protein [Mass/Vol] 6.3 g/dL Low 6.4-8.3 [facility] Comment on above: Performed By: #### L [id number] #### Classroom Coordinator: RADHA VASQUEZ ([id number]) [facility]) [address] [place] [address] [place] Sodium [Moles/Vol] 134 mmol/L Low 136-145 [facility] Comment on above: Performed By: #### L [id number] #### Classroom Coordinator: RADHA VASQUEZ ([id number]) [facility]) [address] [place] [address] [place] Urea nitrogen [Mass/Vol] 6 mg/dL Low 8-21 [facility] Comment on above: Performed By: #### L [id number] #### Classroom Coordinator: RADHA VASQUEZ ([id number]) [facility] ([facility]) [address] [place] [address] Comprehensive metabolic 1998 panelon 01-27-2025 Albumin [Mass/Vol] 2.5 g/dL Low 3.5 - 5.0 g/dL [facility] ALP [Catalytic activity/Vol] 75 U/L 40 - 150 U/L [facility] ALT [Catalytic activity/Vol] 6 U/L NINF - 30 U/L [facility] Anion gap [Moles/Vol] 6 mmol/L 3 - 13 mmol/L [facility] AST [Catalytic activity/Vol] 18 U/L NINF - 34 U/L [facility] Bilirubin [Mass/Vol] 0.2 mg/dL NINF - 1.2 mg/dL [facility] Calcium [Mass/Vol] 8.5 mg/dL 8.4 - 10. 2 mg/dL [facility] Chloride [Moles/Vol] 106 mmol/L 98 - 10 7 mmol/L [facility] CO2 [Moles/Vol] 22 mmol/L 22 - 29 mmol/L [facility] Creatinine [Mass/Vol] 0.68 mg/dL 0.57 - 1.11 mg/dL [facility] GFR/1.73 sq M.predicted (S/P/Bld) [Vol rate/Area] - PINF [facility] Comment on above: Calculation based on the Chronic Kidney Disease Epidemiology Collaboration (CKD-EPI) equation refit without adjustment for race Glucose [Mass/Vol] 79 mg/dL 74 - 100 mg/dL [facility] Interpretation and review of laboratory results Abnormal [facility] Potassium [Moles/Vol] 3.5 mmol/L 3.5 - 5.1 mmol/L [facility] Comment on above: Plasma potassium ayanna ues may be up to 0.5 mmol/L lower than serum values. Protein [Mass/Vol] 6.3 g/dL Low 6.4 - 8.3 g/dL [facility] Sodium [Moles/Vol] 134 mmol/L Low 136 - 145 mmol/L [facility] Urea nitrogen [Mass/Vol] 6 mg/dL Low 8 - 21 mg/dL [facility] ECG 12-LEADon 01-27-2025 ECG 12-LEAD IMPRESSION: Sinus rhythm Low voltage, precordial leads Normal [place] No ST or T wave changes Electronically Signed On 01-27-2025 08:44:08 EDT by Scott Lowe Normal [facility] GROUP B STREP SCREEN BY PCRo n 01-27-2025 GROUP B STREP SCREEN BY PCR GROUP B STREP SCREEN BY PCR Reference Not Detected Not Detected ORDER COMMENTS: Methodology: real-time PCR Normal [facility] Comment on above: Performed By: #### L [id number] #### Classroom Coordinator: RADHA VASQUEZ ([id number]) [facility] [address] [place] [address] Laboratory - Chemistry and C hemistry - challengeon 01-27-2025 Glucose [Mass/Vol] 122 mg/dL High 70 - 100 mg/dL [facility] Glucose [Mass/Vol] 84 mg/dL 70 - 100 mg/dL [facility] TSH Qn 3.5 m[IU]/L [facility] Glucose [Mass/Vol] 129 mg/dL High 70 - 100 mg/dL [facility] Magnesium [Mass/Vol] 2 mg/dL 1.6 - 2 .6 mg/dL [facility] MAGNESIUMon 01-27-2025 Magnesium [Mass/Vol] 2.0 mg/dL Normal 1.6-2.6 [facility] Comment on above: Result Comment: TRINA Horta COMMENTS: Higher values can be expected in females during menses. Performed By: #### L AB17, [id number], [id number], [id number] #### Classroom Coordinator: RADHA VASQUEZ ([id number]) [facility] ([facility]) [address] [place] [address] Magnesium [Mass/Vol]on 01-27 Higher values can be expected in females during menses. [facility] N. gonorrhoeae DNA MAE+probe Ql (Cervical mucus)on 01-27-2025 C. trachomatis DNA MAE+probe Ql (Unsp spec) Not detected Not Detected [facility] Interpretation and review of laboratory results Normal [facility] N gonorrhoeae, DNA Probe Not detected Not Detected [facility] Methodology: real-ti me PCR This test is intended for medical purposes only and is not intended for the evaluation of suspected sexual abuse or for other forensic purposes. In certain contexts, culture may be required to meet applicable laws and regulations for diagnosis of C. trachomatis and N. gonorrhoeae infections. Per 2014 CDC recommmendations, this test does not include confirmation of positive results by an alternative nucleic acid target. A negative result does not exclude the possibility of infection. A result of invalid indicates that a new specimen should be collected if clinically indicated. [facility] No Panel Informationon 01-27 1. Branch live intrauterine at 28w 4d. 2. Normal growth; EFW 1059 grams, which is at the 35%tile for gestational age. The AC measures at the 15%tile for gestational age. 3. The amniotic fluid index is 11.2cm, which is within normal limits. 4. Visualized anatomy appears normal as noted above. RECOMMENDATIONS: 1. Plan per inpatient team. 2. Follow-up as clinically indicated. Ultrasound is not diagnostic for aneuploidy and will not detect all structural abnormalities, even if multiple exams are performed during a given . Normal ultrasound findings do not guarantee normal outcomes. [facility] OBSTETRICS REPORT (Signed Final 01/27/2025 02:35 pm) PATIENT INFO: ID #: [id number] : [birth year] (34 yrs)(F) Name: YESSI ANNE Visit Date: 01/27/2025 09:29 am PERFORMED BY: Attending: Cory Stringer MD, RON, FACOG Performed By: Oni BROWER, VONDA Referred By: TRACI MONTILLA Location: [facility] IP Visit Type: Inpatient - Hospital SERVICE(S) PROVIDED: US >= 14 weeks 86394 BPP w/out NST 04837 INDICATIONS: Poor weight gain Hypoglycemia VITAL SIGNS: Weight (lb): 135 Height: 5'2 BMI: 24.69 EVALUATION: Num Of Fetuses: 1 Heart Rate(bpm): 138 Cardiac Activity: Regular rhythm Lie: Longitudinal Presentation: Cephalic Placenta: Anterior Amniotic Fluid DOROTHY FV: Within normal limits DOROTHY Sum(cm) %Tile Largest Pocket(cm) 11.2 21 3.8 RUQ(cm) RLQ(cm) LUQ(cm) LLQ(cm) 1.3 3.3 3.8 2.8 BIOPHYSICAL EVALUATION: Amniotic F.V: Within normal limits F. Tone: Observed F. Movement: Observed Score: 02/25 F. Breathing: Observed BIOMETRY: BPD: 62.6 mm G.Age: 25w 3d < 1 % OFD: 89.2 mm HC: 245.2 mm G.Age: w 4d < 1 % AC: 231.8 mm G.Age: w 4d 15 % FL: 51.7 mm G.Age: w 4d 13 % HUM: 47.5 mm G.Age: w 6d 32 % CER: 32 mm G.Age: w 4d 23 % LV: 3.5 mm CI: 70.2 % 70 - 86 FL/HC: 21.1 % 19.6 - 20.8 HC/AC: 1.06 0.99 - 1.21 FL/BPD: 82.6 % 71 - 87 FL/AC: 22.3 % 20 - 24 Est. FW: 1059 gm 2 lb 5 oz 35 % GESTATIONAL AGE: Clinical ANISA: 28w 4d ANISA: 04/17/25 U/S Today: 26w 6d ANISA: 04/29/25 Best: 28w 4d Det. By: Clinical ANISA ANISA: 04/17/25 TARGETED ANATOMY: Central Nervous System Calvarium/Cranial V.: Normal appearance Intracranial Navya: Normal appearance Cavum: Normal appearance Parenchyma: Normal appearance Lateral Ventricles: Normal appearance Choroid Plexus: Normal appearance Cereb./Vermis: Normal appearance Cisterna Magna: Normal appearance Corpus Callosum: Normal appearance Midline Falx: Normal appearance Spine Cervical: Normal appearance Thoracic: Normal appearance Lumbar: Normal appearance Sacral: Normal appearance Shape/Curvature: Normal appearance Head/Neck Face: Normal appearance Lips: Normal appearance Neck: Normal appearance Nasal Bone: Present Palate: Suboptimal views Profile: Normal appearance Orbits/Eyes: Normal appearance Mandible: Suboptimal views Maxilla: Suboptimal views Thorax Thoracic Contour: Normal appearance Lungs: Normal appearance 4 Chamber View: Normal appearance Cardiac Activity: Normal Cardiac Rhythm: Normal Cardiac Situs: Normal appearance Rt Outflow Tract: Normal appearance Lt Outflow Tract: Normal appearance Aortic Arch: Normal appearance Ductal Arch: Normal appearance SVC: Normal appearance Interventr. Septum: Normal appearance Cardiac [place]: Normal appearance Diaphragm: Normal appearance 3 Vessel View: Normal appearance 3 V Trachea View: Normal appearance IVC: Normal Appearance Crossing: Normal appearance Abdomen Ventral Wal (more content not included)... [facility] Josemanuel Stringer MD - 01/27/2025 OBSTETRICS REPORT (Signed Final 01/27/2025 02:35 pm) PATIENT INFO: ID #: [id number] : [birth year] (34 yrs)(F) Name: YESSI ANNE Visit Date: 01/27/2025 09:29 am PERFORMED BY: Attending: Cory Stringer MD, RON, FACOG Performed By: Oni BROWER, RD Referred By: TRACI MONTILLA Location: [facility] IP Visit Type: Inpatient - Hospital SERVICE(S) PROVIDED: US >= 14 weeks 24473 BPP w/out NST 60751 INDICATIONS: Poor weight gain Hypoglycemia VITAL SIGNS: Weight (lb): 135 Height: 5'2 BMI: 24.69 EVALUATION: Num Of Fetuses: 1 Heart Rate(bpm): 138 Cardiac Activity: Regular rhythm Lie: Longitudinal Presentation: Cephalic Placenta: Anterior Amniotic Fluid DOROTHY FV: Within normal limits DOROTHY Sum(cm) %Tile Largest Pocket(cm) 11.2 21 3.8 RUQ(cm) RLQ(cm) LUQ(cm) LLQ(cm) 1.3 3.3 3.8 2.8 BIOPHYSICAL EVALUATION: Amniotic F.V: Within normal limits F. Tone: Observed F. Movement: Observed Score: 02/25 F. Breathing: Observed BIOMETRY: BPD: 62.6 mm G.Age: 25w 3d < 1 % OFD: 89.2 mm HC: 245.2 mm G.Age: 26w 4d < 1 % AC: 231.8 mm G.Age: 27w 4d 15 % FL: 51.7 mm G.Age: 27w 4d 13 % HUM: 47.5 mm G.Age: 27w 6d 32 % CER: 32 mm G.Age: 27w 4d 23 % LV: 3.5 mm CI: 70.2 % 70 - 86 FL/HC: 21.1 % 19.6 - 20.8 HC/AC: 1.06 0.99 - 1.21 FL/BPD: 82.6 % 71 - 87 FL/AC: 22.3 % 20 - 24 Est. FW: 1059 gm 2 lb 5 oz 35 % GESTATIONAL AGE: Clinical ANISA: 28w 4d ANISA: 04/17/25 U/S Today: 26w 6d ANISA: 04/29/25 Best: 28w 4d Det. By: Clinical ANISA ANISA: 09/28/25 TARGETED ANATOMY: Central Nervous System Calvarium/Cranial V.: Normal appearance Intracranial Navya: Normal appearance Cavum: Normal appearance Parenchyma: Normal appearance Lateral Ventricles: Normal appearance Choroid Plexus: Normal appearance Cereb./Vermis: Normal appearance Cisterna Magna: Normal appearance Corpus Callosum: Normal appearance Midline Falx: Normal appearance Spine Cervical: Normal appearance Thoracic: Normal appearance Lumbar: Normal appearance Sacral: Normal appearance Shape/Curvature: Normal appearance Head/Neck Face: Normal appearance Lips: Normal appearance Neck: Normal appearance Nasal Bone: Present Palate: Suboptimal views Profile: Normal appearance Orbits/Eyes: Normal appearance Mandible: Suboptimal views Maxilla: Suboptimal views Thorax Thoracic Contour: Normal appearance Lungs: Normal appearance 4 Chamber View: Normal appearance Cardiac Activity: Normal Cardiac Rhythm: Normal Cardiac Situs: Normal appearance Rt Outflow Tract: Normal appearance Lt Outflow Tract: Normal appearance Aortic Arch: Normal appearance Ductal Arch: Normal appearance SVC: Normal appearance Interventr. Septum: Normal appearance Cardiac [place]: Normal appearance Diaphragm: Normal appearance 3 Vessel View: Normal appearance 3 V Trachea View: Normal appearance IVC: Normal Appearance Crossing: Normal appearance Abdomen Ventral Wall: Normal appearance Cord Insertion: Normal appearance Situs: Normal appearance Stomach: Normal appearance Lt Kidney: Normal appearance Rt Kidney: Normal appearance Bladder: Normal appearance Extremities Lt Humerus: Normal appearance Rt Humerus: Suboptimal views Lt Forearm: Normal appearance Rt Forearm: Suboptimal views Lt Hand: Suboptimal views Rt Hand: Suboptimal views Lt Femur: Normal appearance Rt Femur: Normal appearance Lt Lower Leg: Normal appearance Rt Lower Leg: Normal appearance Lt Foot: Suboptimal views Rt Foot: Suboptimal views Other Umbilical Cord: Normal 3-vessel Genitalia: Male Comment: Bilateral ankles - SUB-OPTIMAL VIEWS Renal arteries - Normal appearance Cory Stringer MD, RON, [facility] Electron[place] Signed Final Report 01/27/2025 02:35 pm IMPRESSION: (more content not included)... [facility] Interpretation and review of laboratory results Abnormal [facility] Performed by: [address] [address] CLIA ID: [id number] [facility] Sinus rhythm Low voltage, precordial leads Normal [place] No ST or T wave changes Electronically Signed On 01-27-2025 08:44:08 EDT by Scott Lowe Scott Lopez MD - 01/27/2025 IMPRESSION: Sinus rhythm Low voltage, precordial leads Normal [place] No ST or T wave changes Electronically Signed On 01-27-2025 08:44:08 EDT by Scott Lowe [facility] Interpretation and review of laboratory results Normal [facility] Performed by: [address] [address] CLIA ID: [id number] [facility] Radiology Study observation (narrative) [facility] Interpretation and review of laboratory results Abnormal [facility] Performed by: [address] [address] CLIA ID: [id number] [facility] Interpretation and review of laboratory results Normal [facility] No Panel InformationOrdered By: Josemanuel Stringer on 01-27-2025 [employer] Work Phone: No Panel InformationOrdered By: Scott Lowe on 01-27-2025 P [place] 66 degrees [employer] Work Phone: ND Interval 134 ms [facility] Work Phone: QRS [place] 84 degrees [facility] Work Phone: QRSD Interval 86 ms [facility] Phone: QT Interval 360 ms [facility] Work Phone: QTC Interval 420 ms [facility] Phone: T Wave [place] 52 degrees [facility] Phone: [facility] Work Phone: Nursing Noteon 01-27-2025 Nursing Note 1300 iron infusion complete, per DR. Stringer, may be discharged to home ., iv heplock removed, clean dry and intact., discharge papers given, no acute distress this afternoon, blood sugars trending normal and pt is asymptomatic at present time, feels reassured to go home., papers signed, ambulatory home Normal [facility] PHOSPHORUSon 01-27-2025 Phosphate [Mass/Vol] 3.0 mg/dL Normal 2.3-4.7 [facility] Comment on above: Performed By: #### L [id number], [id number], [id number], [id number] #### Classroom Coordinator: RADHA VASQUEZ ([id number]) [address] Phosphate [Moles/Vol]on 01-18 Phosphate [Mass/Vol] 3 mg/dL 2.3 - 4 .7 mg/dL [facility] Progress Noteon 01-27-2025 Progress Note ------- Attestation signed by Alejandra Tena DO at 01/27/2025 6:24 AM Hospital Care (Independent): I independently saw and evaluated the patient. I agree with the findings and plan of care as documented in the resident's note. Alejandra Tena, DO Department of Obstetrics and Gynecology Labor and Delivery Triage Note CHIEF CONCERN: Hypo-glycemia HISTORY OF PRESENT ILLNESS: Presents as a transfer from [facility] for symptomatic hypoglycemia. Blood sugar here within normal limits The patient is a 34 y.o. at 28w4d. Estimated Due Date: Estimated Date of Delivery: 04/17/25 OB History: OB History 6 Para 2 Term 2 0 AB 3 Living 0 SAB 1 IAB Ectopic 2 Multiple 0 Live Births 2 OB History Para Term AB Living 6 2 2 0 3 0 SAB IAB Ectopic Multiple Live Births 1 2 0 2 # Outcome Date GA Lbr Jimmie/2nd Weight Sex Type Anes PTL Lv 6 Current 5 Ectopic 01/2023 Medical Arlette 4 Term 02/2022 M CS-LTranv Gen N ND Complications: Abruptio Placenta 3 Term 2019 6 lb 1 oz (2.75 kg) F Vag-Spont N MARK Complications: Lacerations 2 Ectopic 1 SAB REVIEW OF SYSTEMS: Pertinent items are noted in HPI. APPEARANCE: Pain: no PHYSICAL EXAM: Vital Signs: VS wnl-reviewed/Respirations normal effort Vitals: 01/27/25 0101 01/27/25 0103 01/27/25 0140 01/27/25 0141 BP: 99/60 105/65 94/61 Pulse: 102 98 (!) 174 92 Resp: Temp: TempSrc: SpO2: Speculum Exam: defer heart rate: Category I Cervix: defer Membranes: Intact BSUS: vertex presentation IMPRESSION: Discussed with M attending Dr. Stringer, will plan to admit for blood sugar trending as well as continuous monitoring. Patient is in agreement with this. See H&P DISCUSSED WITH PNC PROVIDER: Dr. Stringer DISPOSITION: Admit to L&D [facility] T. vaginalis DNA MAE+probe Q l (Genital specimen)on 07-10-2025 Interpretation and review of laboratory results Normal [facility] Trichomonas vaginalis Not detected Not Detected [facility] Methodology: real-ti me PCR A negative result does not completely rule out infection with T. vaginalis. Results should be interpreted in conjunction with other clinical data. This test has not been validated for use with self-collected vaginal swab specimens from patients. This test is intended for medical purposes only and is not intended for the evaluation of suspected sexual abuse or for other forensic purposes. [facility] THYROID STIMULATING HORMONEo n 01-27-2025 THYROID STIMULATING HORMONE 3.50 uIU/mL Normal 0.35-4.94 [facility] Comment on above: Performed By: #### L [id number] #### Classroom Coordinator: RADHA VASQUEZ ([id number]) [address] TRICHOMONAS VAGINALIS PCRon 01-27-2025 TRICHOMONAS VAGINALIS PCR TRICHOMONAS VAGINALIS PCR Reference Not Detected Not Detected ORDER COMMENTS: Methodology: real-time PCR A negative result does not completely rule out infection with T. vaginalis. Results should be interpreted in conjunction with other clinical data. This test has not been validated for use with self-collected vaginal swab specimens from patients. This test is intended for medical purposes only and is not intended for the evaluation of suspected sexual abuse or for other forensic purposes. Normal [facility] Comment on above: Performed By: #### L [id number], [id number] #### Classroom Coordinator: RADHA VASQUEZ ([id number]) [address] TSH Qnon 01-27-2025 Interpretation and review of laboratory results Normal [facility] URINE CULTUREon 01-27-2025 Bacteria identified Cx Nom (U) URINE CULTURE Reference Normal urogenital keke present [ S = SUSCEPTIBLE R = RESISTANT I = INTERMEDIATE S-DD = Susceptible-dose dependent NS = Non-susceptible NO = No Interpretation ] Normal [facility] Comment on above: Performed By: #### L [id number] #### Classroom Coordinator: RADHA VASQUEZ ([id number]) [address] US BIOPHYSICAL PROFILE WO NON STRESS TESTINGon 01-27-2025 US BIOPHYSICAL PROFILE WO NON STRESS TESTING OBSTETRICS REPORT (Signed Final 01/27/2025 02:35 pm) PATIENT INFO: ID #: [id number] : [birth year] (34 yrs)(F) Name: YESSI ANNE Visit Date: 01/27/2025 09:29 am PERFORMED BY: Attending: Cory Stringer MD, RON, FACOG Performed By: Oni BROWER, RDMS Referred By: TRACI MONTILLA Location: [facility] IP Visit Type: Inpatient - Hospital SERVICE(S) PROVIDED: US >= 14 weeks 15256 BPP w/out NST 33621 INDICATIONS: Poor weight gain Hypoglycemia VITAL SIGNS: Weight (lb): 135 Height: 5'2 BMI: 24.69 EVALUATION: Num Of Fetuses: 1 Heart Rate(bpm): 138 Cardiac Activity: Regular rhythm Lie: Longitudinal Presentation: Cephalic Placenta: Anterior Amniotic Fluid DOROTHY FV: Within normal limits DOROTHY Sum(cm) %Tile Largest Pocket(cm) 11.2 21 3.8 RUQ(cm) RLQ(cm) LUQ(cm) LLQ(cm) 1.3 3.3 3.8 2.8 BIOPHYSICAL EVALUATION: Amniotic F.V: Within normal limits F. Tone: Observed F. Movement: Observed Score: 8/8 F. Breathing: Observed BIOMETRY: BPD: 62.6 mm G.Age: 25w 3d < 1 % OFD: 89.2 mm HC: 245.2 mm G.Age: 26w 4d < 1 % AC: 231.8 mm G.Age: 27w 4d 15 % FL: 51.7 mm G.Age: 27w 4d 13 % HUM: 47.5 mm G.Age: 27w 6d 32 % CER: 32 mm G.Age: 27w 4d 23 % LV: 3.5 mm CI: 70.2 % 70 - 86 FL/HC: 21.1 % 19.6 - 20.8 HC/AC: 1.06 0.99 - 1.21 FL/BPD: 82.6 % 71 - 87 FL/AC: 22.3 % 20 - 24 Est. FW: 1059 gm 2 lb 5 oz 35 % GESTATIONAL AGE: Clinical ANISA: 28w 4d ANISA: 04/17/25 U/S Today: w 6d ANISA: 04/29/25 Best: w 4d Det. By: Clinical ANISA ANISA: 04/17/25 TARGETED ANATOMY: Central Nervous System Calvarium/Cranial V.: Normal appearance Intracranial Navya: Normal appearance Cavum: Normal appearance Parenchyma: Normal appearance Lateral Ventricles: Normal appearance Choroid Plexus: Normal appearance Cereb./Vermis: Normal appearance Cisterna Magna: Normal appearance Corpus Callosum: Normal appearance Midline Falx: Normal appearance Spine Cervical: Normal appearance Thoracic: Normal appearance Lumbar: Normal appearance Sacral: Normal appearance Shape/Curvature: Normal appearance Head/Neck Face: Normal appearance Lips: Normal appearance Neck: Normal appearance Nasal Bone: Present Palate: Suboptimal views Profile: Normal appearance Orbits/Eyes: Normal appearance Mandible: Suboptimal views Maxilla: Suboptimal views Thorax Thoracic Contour: Normal appearance Lungs: Normal appearance 4 Chamber View: Normal appearance Cardiac Activity: Normal Cardiac Rhythm: Normal Cardiac Situs: Normal appearance Rt Outflow Tract: Normal appearance Lt Outflow Tract: Normal appearance Aortic Arch: Normal appearance Ductal Arch: Normal appearance SVC: Normal appearance Interventr. Septum: Normal appearance Cardiac [place]: Normal appearance Diaphragm: Normal appearance 3 Vessel View: Normal appearance 3 V Trachea View: Normal appearance IVC: Normal Appearance Crossing: Normal appearance Abdomen Ventral Wall: Normal appearance Cord Insertion: Normal appearance Situs: Normal appearance Stomach: Normal appearance Lt Kidney: Normal appearance Rt Kidney: Normal appearance Bladder: Normal appearance Extremities Lt Humerus: Normal appearance Rt Humerus: Suboptimal views Lt Forearm: Normal appearance Rt Forearm: Suboptimal views Lt Hand: Suboptimal views Rt Hand: Suboptimal views Lt Femur: Normal appearance Rt Femur: Normal appearance Lt Lower Leg: Normal appearance Rt Lower Leg: Normal appearance Lt Foot: Suboptimal views Rt Foot: Suboptimal views Other Umbilical Cord: Normal 3-vessel Genitalia: Male Comment: Bilateral ankles - SUB-OPTIMAL VIEWS Renal arteries - Normal appearance Cory Stringer MD, RON, FACOG Electronically Signed Final Report 01/27/2025 02:35 pm IMPRESSION: 1. Branch live intrauterine at 28w 4d. 2. Normal growth; EFW 1059 grams, which is at the 35%tile for (more content not included)... Normal [facility] US OB 14+ WEEKS SINGLE FETUS MATERNAL EVAL TRANSABDOMINALon 01-27-2025 US OB 14+ WEEKS SINGLE FETUS MATERNAL EVAL TRANSABDOMINAL OBSTETRICS REPORT (Signed Final 01/27/2025 02:35 pm) PATIENT INFO: ID #: [id number] : [birth year] (34 yrs)(F) Name: YESSI ANEN Visit Date: 01/27/2025 09:29 am PERFORMED BY: Attending: Cory Stringer MD, RON, FACOG Performed By: Oni BROWER, RDMS Referred By: TRACI MONTILLA Location: [facility] IP Visit Type: Inpatient - Hospital SERVICE(S) PROVIDED: US >= 14 weeks [address] BPP w/out NST 03412 INDICATIONS: Poor weight gain Hypoglycemia VITAL SIGNS: Weight (lb): 135 Height: 5'2 BMI: 24.69 EVALUATION: Num Of Fetuses: 1 Heart Rate(bpm): 138 Cardiac Activity: Regular rhythm Lie: Longitudinal Presentation: Cephalic Placenta: Anterior Amniotic Fluid DOROTHY FV: Within normal limits DOROTHY Sum(cm) %Tile Largest Pocket(cm) 11.2 21 3.8 RUQ(cm) RLQ(cm) LUQ(cm) LLQ(cm) 1.3 3.3 3.8 2.8 BIOPHYSICAL EVALUATION: Amniotic F.V: Within normal limits F. Tone: Observed F. Movement: Observed Score: 02/25 F. Breathing: Observed BIOMETRY: BPD: 62.6 mm G.Age: 25w 3d < 1 % OFD: 89.2 mm HC: 245.2 mm G.Age: 26w 4d < 1 % AC: 231.8 mm G.Age: 27w 4d 15 % FL: 51.7 mm G.Age: 27w 4d 13 % HUM: 47.5 mm G.Age: 27w 6d 32 % CER: 32 mm G.Age: 27w 4d 23 % LV: 3.5 mm CI: 70.2 % 70 - 86 FL/HC: 21.1 % 19.6 - 20.8 HC/AC: 1.06 0.99 - 1.21 FL/BPD: 82.6 % 71 - 87 FL/AC: 22.3 % 20 - 24 Est. FW: 1059 gm 2 lb 5 oz 35 % GESTATIONAL AGE: Clinical ANISA: 28w 4d ANISA: 04/17/25 U/S Today: 26w 6d ANISA: 04/29/25 Best: 28w 4d Det. By: Clinical ANISA ANISA: 04/17/25 TARGETED ANATOMY: Central Nervous System Calvarium/Cranial V.: Normal appearance Intracranial Navya: Normal appearance Cavum: Normal appearance Parenchyma: Normal appearance Lateral Ventricles: Normal appearance Choroid Plexus: Normal appearance Cereb./Vermis: Normal appearance Cisterna Magna: Normal appearance Corpus Callosum: Normal appearance Midline Falx: Normal appearance Spine Cervical: Normal appearance Thoracic: Normal appearance Lumbar: Normal appearance Sacral: Normal appearance Shape/Curvature: Normal appearance Head/Neck Face: Normal appearance Lips: Normal appearance Neck: Normal appearance Nasal Bone: Present Palate: Suboptimal views Profile: Normal appearance Orbits/Eyes: Normal appearance Mandible: Suboptimal views Maxilla: Suboptimal views Thorax Thoracic Contour: Normal appearance Lungs: Normal appearance 4 Chamber View: Normal appearance Cardiac Activity: Normal Cardiac Rhythm: Normal Cardiac Situs: Normal appearance Rt Outflow Tract: Normal appearance Lt Outflow Tract: Normal appearance Aortic Arch: Normal appearance Ductal Arch: Normal appearance SVC: Normal appearance Interventr. Septum: Normal appearance Cardiac [place]: Normal appearance Diaphragm: Normal appearance 3 Vessel View: Normal appearance 3 V Trachea View: Normal appearance IVC: Normal Appearance Crossing: Normal appearance Abdomen Ventral Wall: Normal appearance Cord Insertion: Normal appearance Situs: Normal appearance Stomach: Normal appearance Lt Kidney: Normal appearance Rt Kidney: Normal appearance Bladder: Normal appearance Extremities Lt Humerus: Normal appearance Rt Humerus: Suboptimal views Lt Forearm: Normal appearance Rt Forearm: Suboptimal views Lt Hand: Suboptimal views Rt Hand: Suboptimal views Lt Femur: Normal appearance Rt Femur: Normal appearance Lt Lower Leg: Normal appearance Rt Lower Leg: Normal appearance Lt Foot: Suboptimal views Rt Foot: Suboptimal views Other Umbilical Cord: Normal 3-vessel Genitalia: Male Comment: Bilateral ankles - SUB-OPTIMAL VIEWS Renal arteries - Normal appearance Cory Stringer MD, RON, FACOG Electronically Signed Final Report 01/27/2025 02:35 pm IMPRESSION: 1. Branch live intrauterine at 28w 4d. 2. Normal growth; EFW 1059 grams, which is at the 35%tile for (more content not included)... Normal [employer] [facility] Vital signsOrdered By: Scott Lowe on 01-27-2025 Heart rate 82 /min bpm [employer] Work Phone: Bedside Glucoseon 01-26-2025 FINGERSTICK GLU 117 mg/dL High 74-106 [facility] Comment on above: Result Comment: ERIBERTO GIRALDO OF PATIENT CARE PER NURSING PROTOCOL Performed By: #### L 501.080 ####[facility] [address] [place], [address] FINGERSTICK GLU 86 mg/dL Normal 74-106 [facility] Comment on above: Result Comment: ERIBERTO GEMENT OF PATIENT CARE PER NURSING PROTOCOL Performed By: #### L 501.080 ####[facility] [address] [place], [address] FINGERSTICK GLU 74 mg/dL Normal 74-106 [facility] Comment on above: Result Comment: ERIBERTO GEMENT OF PATIENT CARE PER NURSING PROTOCOL Performed By: #### L 501.080 ####[facility] [address] [place], [address] FINGERSTICK GLU 53 mg/dL Low 74-106 [facility] Comment on above: Result Comment: ERIBERTO GEMENT OF PATIENT CARE PER NURSING PROTOCOL Performed By: #### L 501.080 ####[facility] [address] [place], [address] FINGERSTICK GLU 94 mg/dL Normal 74-106 [facility] Comment on above: Result Comment: ERIBERTO GEMENT OF PATIENT CARE PER NURSING PROTOCOL Performed By: #### L 501.080 ####[facility] [address] [place], [address] CBC W/Diff, Automatedon 07-0 9-5 Absolute Lymph 1.33 X10 3/uL Normal 0.83-4.51 [facility] Comment on above: Performed By: #### L 100.0100 ####[facility] [address] [place], [address] Absolute Neut 6.0 X10 3/uL Normal 2.0-7.7 [facility] Comment on above: Performed By: #### L 100.0100 ####[facility] [address] [place], [address] Basophils/100 WBC (Bld) 0.4 % Normal 0-1 [facility] Comment on above: Performed By: #### L 100.0100 ####[facility] [address] [place], [address] Eosinophils/100 WBC (Bld) 0.4 % Normal 0-5 [facility] Comment on above: Performed By: #### L 100.0100 ####[facility] [address] [place], [address] Erythrocyte distribution width (RBC) [Ratio] 12.1 % Normal 11.6-14.6 [facility] Comment on above: Performed By: #### L 100.0100 ####[facility] [address] [place], [address] Hematocrit (Bld) [Volume fraction] 30.1 % Low 37-47 [facility] Comment on above: Performed By: #### L 100.0100 ####[facility] [address] [place], [address] Hemoglobin (Bld) [Mass/Vol] 10.3 g/dL Low 12.0-15.0 [facility] Comment on above: Performed By: #### L 100.0100 ####[facility] [address] [place], [address] IG% 0.400 Normal 0.0-0.9 [facility] Comment on above: Result Comment: IG% - Immature Granulocytes (promyelocytes, myelocytes andmetamyelocytes) > 1% indicates that a LEFT SHIFT is Present. Performed By: #### L 100.0100 ####[facility] [address] [place], [address] Lymphocytes/100 WBC (Bld) 16.7 % Low 19-41 [facility] Comment on above: Performed By: #### L 100.0100 ####[facility] [address] [place], [address] MCH (RBC) [Entitic mass] 31.0 pg Normal 27.0-32.0 [facility] Comment on above: Performed By: #### L 100.0100 ####[facility] [address] [place], [address] MCHC (RBC) [Mass/Vol] 34.2 g/dL Normal 32-36 [facility] Comment on above: Performed By: #### L 100.0100 ####[facility] [address] [place], [address] MCV (RBC) [Entitic vol] 90.7 fL Normal 81-99 [facility] Comment on above: Performed By: #### L 100.0100 ####[facility] [address] [place], [address] Monocytes/100 WBC (Bld) 6.5 % Normal 0-10 [facility] Comment on above: Performed By: #### L 100.0100 ####[facility] [address] [place], [address] Neutrophils/100 WBC (Bld) 75.6 % High 47-70 [facility] Comment on above: Performed By: #### L 100.0100 ####[facility] [address] [place], [address] Nucleated RBC (Bld) [#/Vol] 0 10*3/uL Normal 0-5 [facility] Comment on above: Performed By: #### L 100.0100 ####[facility] [address] [place], [address] Platelet mean volume (Bld) [Entitic vol] 11.3 fL Normal 6.2-12.0 [facility] Comment on above: Performed By: #### L 100.0100 ####[facility] [address] [place], [address] Platelets (Bld) [#/Vol] 252 10*3/uL Normal 150-450 [facility] Comment on above: Performed By: #### L 100.0100 ####[facility] [address] [place], [address] RBC (Bld) [#/Vol] 3.32 10*6/uL Low 4.2-5.4 [facility] Comment on above: Performed By: #### L 100.0100 ####[facility] [address] [place], [address] RDW SD 39.3 fl Normal 35.1-43.9 [facility] Comment on above: Performed By: #### L 100.0100 ####[facility] [address] [place], [address] WBC (Bld) [#/Vol] 8.0 10*3/uL Normal 4.4-11.0 [facility] Comment on above: Performed By: #### L 100.0100 ####[facility] [address] [place], [address] Comprehensive Met[facility] Prof [facility] 01-26-2025 Albumin [Mass/Vol] 3.4 g/dL Low 3.5-5.0 [facility] Comment on above: Performed By: #### L 501.9520, L500.4050, L501.45691, L506.0400, L501.2450, L509.6001 ####[facility] [address] [place], [address] Albumin/Globulin [Mass ratio] 1.1 {ratio} Normal 0.9-2.4 [facility] Comment on above: Performed By: #### L 501.9520, L500.4050, L501.87381, L506.0400, L501.2450, L509.6001 ####[facility] [address] [place], [address] ALK PHOS 84 U/L Normal 35-104 [facility] Comment on above: Performed By: #### L 501.9520, L500.4050, L501.56106, L506.0400, L501.2450, L509.6001 ####[facility] [address] [place], [address] ALT [Catalytic activity/Vol] 9 U/L Normal <=34 [facility] Comment on above: Performed By: #### L 501.9520, L500.4050, L501.83977, L506.0400, L501.2450, L509.6001 ####[facility] [address] [place], [address] AST [Catalytic activity/Vol] 15 U/L Normal <=31 [facility] Comment on above: Performed By: #### L 501.9520, L500.4050, L501.80160, L506.0400, L501.2450, L509.6001 ####[facility] [address] [place], [address] Bilirubin [Mass/Vol] 0.19 mg/dL Normal 0.00-1.30 [facility] Comment on above: Performed By: #### L 501.9520, L500.4050, L501.96160, L506.0400, L501.2450, L509.6001 ####[facility] [address] [place], [address] BUN/CRE 14.0 RATIO Normal 10-20 [facility] Comment on above: Performed By: #### L 501.9520, L500.4050, L501.38054, L506.0400, L501.2450, L509.6001 ####[facility] [address] [place], [address] Calcium [Mass/Vol] 8.9 mg/dL Normal 7.6-11.0 [facility] Comment on above: Performed By: #### L 501.9520, L500.4050, L501.49688, L506.0400, L501.2450, L509.6001 ####[facility] [address] [place], [address] Chloride [Moles/Vol] 102 mmol/L Normal 98-108 [facility] Comment on above: Performed By: #### L 501.9520, L500.4050, L501.72991, L506.0400, L501.2450, L509.6001 ####[facility] [address] [place], [address] CO2 [Moles/Vol] 22.7 mmol/L Normal 21.0-32.0 [facility] Comment on above: Performed By: #### L 501.9520, L500.4050, L501.84899, L506.0400, L501.2450, L509.6001 ####[facility] [address] [place], [address] Creatinine [Mass/Vol] 0.63 mg/dL Low 0.70-1.20 [facility] Comment on above: Performed By: #### L 501.9520, L500.4050, L501.59010, L506.0400, L501.2450, L509.6001 ####[facility] [address] [place], [address] ECRCL 106.62 ml/min Normal 50-250 [facility] Comment on above: Performed By: #### L 501.9520, L500.4050, L501.28947, L506.0400, L501.2450, L509.6001 ####[facility] [address] [place], [address] GAP 11 Normal 5-15 [facility] Comment on above: Performed By: #### L 501.9520, L500.4050, L501.30507, L506.0400, L501.2450, L509.6001 ####[facility] [address] [place], [address] GFR/1.73 sq M.predicted among non-blacks MDRD (S/P/Bld) [Vol rate/Area] 120 mL/min/{1.73_m2} Normal >60 [facility] Comment on above: Result Comment: mL/m in/1.73m2 CKD-EPI Creatinine Equation (2020) Performed By: #### L 501.9520, L500.4050, L501.22501, L506.0400, L501.2450, L509.6001 ####[facility] [address] [place], [address] Globulin (S) [Mass/Vol] 3.2 g/dL Normal 2.2-4.2 [facility] Comment on above: Performed By: #### L 501.9520, L500.4050, L501.06726, L506.0400, L501.2450, L509.6001 ####[facility] [address] [place], [address] Glucose [Mass/Vol] 95 mg/dL Normal 70-99 [facility] Comment on above: Performed By: #### L 501.9520, L500.4050, L501.75319, L506.0400, L501.2450, L509.6001 ####[facility] [address] [place], [address] Potassium [Moles/Vol] 3.5 mmol/L Normal 3.3-5.1 [facility] Comment on above: Performed By: #### L 501.9520, L500.4050, L501.10909, L506.0400, L501.2450, L509.6001 ####[facility] [address] [place], [address] Sodium [Moles/Vol] 136 mmol/L Normal 133-145 [facility] Comment on above: Performed By: #### L 501.9520, L500.4050, L501.97253, L506.0400, L501.2450, L509.6001 ####[facility] [address] [place], [address] T PROT 6.6 g/dL Normal 5.9-8.4 [facility] Comment on above: Performed By: #### L 501.9520, L500.4050, L501.70554, L506.0400, L501.2450, L509.6001 ####[facility] [address] [place], [address] Urea nitrogen [Mass/Vol] 9 mg/dL Normal 4-19 [facility] Comment on above: Performed By: #### L 501.9520, L500.4050, L501.57666, L506.0400, L501.2450, L509.6001 ####[facility] [address] [place], [address] Emergency Department Summary on 01-26-2025 Emergency Department Summary Normal [facility] Free T3on 01-26-2025 Free T3 [Mass/Vol] 2.5 pg/mL Normal 2.18-3.98 [facility] Comment on above: Performed By: #### L 501.9520, L500.4050, L501.05431, L506.0400, L501.2450, L509.6001 ####[facility] [address] [place], [address] H AND P Exam - OB/GYNon 07-0 H&P Exam - PLANT UTILITY PERSON Normal [facility] L509.6001on 01-26-2025 CORTISOL 28.80 ug/dL High 6.02-18.40 [facility] Comment on above: Performed By: #### L 501.9520, L500.4050, L501.92100, L506.0400, L501.2450, L509.6001 ####[facility] [address] [place], [place], [id number] L509.7001on 01-26-2025 Procalcitonin 0.06 ng/mL Normal <=0.10 [facility] Comment on above: Result Comment: Inte rpretation:<0.10-0.25 ng/mL: Antibiotic therapy discouraged. Bacterialinfection unlikely.0.25-0.50 ng/mL: Antibiotic therapy encouraged. Bacterialinfection possible.>0.50 ng/mL: Antibiotic therapy strongly encouraged.Suggestive of presence of bacterial infection.PCT should always be interpreted in the clinical context ofthe patient. Therefore, clinicians should use the PCTresults in conjunction with other laboratory findings andclinical signs of the patient. Performed By: #### L 3100.7750, L3300.3500, L509.7001 ####[facility] [address] [place], [address] Laboratory - Chemistry and C hemistry - challengeon 01-26-2025 Glucose [Mass/Vol] 113 mg/dL High 70 - 100 mg/dL [facility] Lipaseon 01-26-2025 Lipase [Catalytic activity/Vol] 38 U/L Normal 13-75 [facility] Comment on above: Result Comment: Plealy coronado note:LIPASE revised reference range effective 22.New Lipase methodology. Expected to produce lower valuesthan the previous assay method.NEW Reference Range: 13 - 75 U/L Performed By: #### L 501.9520, L500.4050, L501.55490, L506.0400, L501.2450, L509.6001 ####[facility] [address] [place], [address] No Panel Informationon 01-26 Interpretation and review of laboratory results Abnormal [facility] Performed by: [facility], [address] [place] [address] CLIA ID: [id number] [facility] PTHINon 01-26-2025 PTH 45 pg/mL Normal 11-61 [facility] Comment on above: Performed By: #### L 509.1000 ####[facility] [address] [place], [address] T4 Free Directon 01-26-2025 T4 FREE DIRECT 0.90 ng/dL Normal 0.76-1.46 [facility] Comment on above: Performed By: #### L 501.9520, L500.4050, L501.54379, L506.0400, L501.2450, L509.6001 ####[facility] [address] [place], [address] Thyroid Stim Hormone (TSH)on 01-26-2025 TSH 1.440 uIU/mL Normal 0.300-4.200 [facility] Comment on above: Performed By: #### L 501.9520, L500.4050, L501.78582, L506.0400, L501.2450, L509.6001 ####[facility] [address] [place], [address] Urinalysis, Completeon 01-26 EPI,SQUAMOUS 0-5 SEEN Normal 5-10 [facility] Comment on above: Order Comment: CLEAN CATCH Performed By: #### L 400.0001 ####[facility] [address] [place], [address] Mucus Ql (Urine sed) 1+ /hpf Normal [facility] Comment on above: Order Comment: CLEAN CATCH Performed By: #### L 400.0001 ####[facility] [address] [place], [address] RBC 0-5 SEEN Normal 0-5 [facility] Comment on above: Order Comment: CLEAN CATCH Performed By: #### L 400.0001 ####[facility] [address] [place], [place], [address] WBC 0-5 SEEN Normal 0-5 [facility] Comment on above: Order Comment: CLEAN CATCH Performed By: #### L 400.0001 ####[facility] [address] [place], [address] BACTERIA 0 SEEN Normal None Seen [facility] Comment on above: Order Comment: CLEAN CATCH Performed By: #### L 400.0001 ####[facility] [address] [place], [address] L3300.8200on 01-19-2025 VITAMIN B6 2.7 ug/L Low 3.4-65.2 [facility] Comment on above: Order Comment: Test( s) 712026-Zpsaddd B6was developed and its performance characteristicsdetermined by [employer]. It has not been cleared or approvedby the Food and Drug Administration. Result Comment: Defi ciency: <3.4 Marginal: 3.4 - 5.1 Adequate: >5.1Performed at: [facility] [id number] Director: Nae Mendiola MD, Phone: [phone] Performed By: #### L 503.0106, L3890.6006, L506.0400, L3300.8200, L501.9520, L100.0100, L509.8002, L500.4050 ####[facility] [address] [place], [address] CBC W/Diff, Automatedon 06-3 0 Absolute Lymph 1.59 X10 3/uL Normal 0.83-4.51 [facility] Comment on above: Performed By: #### L 503.0106, L3890.6006, L506.0400, L3300.8200, L501.9520, L100.0100, L509.8002, L500.4050 ####[facility] [address] [place], [address] Absolute Neut 5.4 X10 3/uL Normal 2.0-7.7 [facility] Comment on above: Performed By: #### L 503.0106, L3890.6006, L506.0400, L3300.8200, L501.9520, L100.0100, L509.8002, L500.4050 ####[facility] [address] [place], [address] Basophils/100 WBC (Bld) 0.5 % Normal 0-1 [facility] Comment on above: Performed By: #### L 503.0106, L3890.6006, L506.0400, L3300.8200, L501.9520, L100.0100, L509.8002, L500.4050 ####[facility] [address] [place], [address] Eosinophils/100 WBC (Bld) 0.7 % Normal 0-5 [facility] Comment on above: Performed By: #### L 503.0106, L3890.6006, L506.0400, L3300.8200, L501.9520, L100.0100, L509.8002, L500.4050 ####[facility] [address] [place], [address] Erythrocyte distribution width (RBC) [Ratio] 12.2 % Normal 11.6-14.6 [facility] Comment on above: Performed By: #### L 503.0106, L3890.6006, L506.0400, L3300.8200, L501.9520, L100.0100, L509.8002, L500.4050 ####[facility] [address] [place], [address] Hematocrit (Bld) [Volume fraction] 31.5 % Low 37-47 [facility] Comment on above: Performed By: #### L 503.0106, L3890.6006, L506.0400, L3300.8200, L501.9520, L100.0100, L509.8002, L500.4050 ####[facility] [address] [place], [address] Hemoglobin (Bld) [Mass/Vol] 10.6 g/dL Low 12.0-15.0 [facility] Comment on above: Performed By: #### L 503.0106, L3890.6006, L506.0400, L3300.8200, L501.9520, L100.0100, L509.8002, L500.4050 ####[facility] [address] [place], [address] IG% 0.400 Normal 0.0-0.9 [facility] Comment on above: Result Comment: IG% - Immature Granulocytes (promyelocytes, myelocytes andmetamyelocytes) > 1% indicates that a LEFT SHIFT is Present. Performed By: #### L 503.0106, L3890.6006, L506.0400, L3300.8200, L501.9520, L100.0100, L509.8002, L500.4050 ####[facility] [address] [place], [address] Lymphocytes/100 WBC (Bld) 21.3 % Normal 19-41 [facility] Comment on above: Performed By: #### L 503.0106, L3890.6006, L506.0400, L3300.8200, L501.9520, L100.0100, L509.8002, L500.4050 ####[facility] [address], [address] MCH (RBC) [Entitic mass] 31.2 pg Normal 27.0-32.0 [facility] Comment on above: Performed By: #### L 503.0106, L3890.6006, L506.0400, L3300.8200, L501.9520, L100.0100, L509.8002, L500.4050 ####[facility] [address] [place], [address] MCHC (RBC) [Mass/Vol] 33.7 g/dL Normal 32-36 [facility] Comment on above: Performed By: #### L 503.0106, L3890.6006, L506.0400, L3300.8200, L501.9520, L100.0100, L509.8002, L500.4050 ####[facility] [address] [place], [address] MCV (RBC) [Entitic vol] 92.6 fL Normal 81-99 [facility] Comment on above: Performed By: #### L 503.0106, L3890.6006, L506.0400, L3300.8200, L501.9520, L100.0100, L509.8002, L500.4050 ####[facility] [address] [place], [address] Monocytes/100 WBC (Bld) 4.8 % Normal 0-10 [facility] Comment on above: Performed By: #### L 503.0106, L3890.6006, L506.0400, L3300.8200, L501.9520, L100.0100, L509.8002, L500.4050 ####[facility] [address] [place], [address] Neutrophils/100 WBC (Bld) 72.3 % High 47-70 [facility] Comment on above: Performed By: #### L 503.0106, L3890.6006, L506.0400, L3300.8200, L501.9520, L100.0100, L509.8002, L500.4050 ####[facility] [address] [place], [address] Nucleated RBC (Bld) [#/Vol] 0 10*3/uL Normal 0-5 [facility] Comment on above: Performed By: #### L 503.0106, L3890.6006, L506.0400, L3300.8200, L501.9520, L100.0100, L509.8002, L500.4050 ####[facility] [address] [place], [address] Platelet mean volume (Bld) [Entitic vol] 11.6 fL Normal 6.2-12.0 [facility] Comment on above: Performed By: #### L 503.0106, L3890.6006, L506.0400, L3300.8200, L501.9520, L100.0100, L509.8002, L500.4050 ####[facility] [address] [place], [address] Platelets (Bld) [#/Vol] 280 10*3/uL Normal 150-450 [facility] Comment on above: Performed By: #### L 503.0106, L3890.6006, L506.0400, L3300.8200, L501.9520, L100.0100, L509.8002, L500.4050 ####[facility] [address] [place], [address] RBC (Bld) [#/Vol] 3.40 10*6/uL Low 4.2-5.4 [facility] Comment on above: Performed By: #### L 503.0106, L3890.6006, L506.0400, L3300.8200, L501.9520, L100.0100, L509.8002, L500.4050 ####[facility] [address] [place], [address] RDW SD 41.3 fl Normal 35.1-43.9 [facility] Comment on above: Performed By: #### L 503.0106, L3890.6006, L506.0400, L3300.8200, L501.9520, L100.0100, L509.8002, L500.4050 ####[facility] [address] [place], [place], [id number] WBC (Bld) [#/Vol] 7.5 10*3/uL Normal 4.4-11.0 [facility] Comment on above: Performed By: #### L 503.0106, L3890.6006, L506.0400, L3300.8200, L501.9520, L100.0100, L509.8002, L500.4050 ####[facility] [address] [place], [address] Comprehensive Metabolic Prof [facility] 01-17-2025 Albumin [Mass/Vol] 3.5 g/dL Normal 3.5-5.0 [facility] Comment on above: Performed By: #### L 503.0106, L3890.6006, L506.0400, L3300.8200, L501.9520, L100.0100, L509.8002, L500.4050 ####[facility] [address] [place], [address] Albumin/Globulin [Mass ratio] 1.1 {ratio} Normal 0.9-2.4 [facility] Comment on above: Performed By: #### L 503.0106, L3890.6006, L506.0400, L3300.8200, L501.9520, L100.0100, L509.8002, L500.4050 ####[facility] [address] [place], [address] ALK PHOS 81 U/L Normal 35-104 [facility] Comment on above: Performed By: #### L 503.0106, L3890.6006, L506.0400, L3300.8200, L501.9520, L100.0100, L509.8002, L500.4050 ####[facility] [address] [place], [address] ALT [Catalytic activity/Vol] 10 U/L Normal <=34 [facility] Comment on above: Performed By: #### L 503.0106, L3890.6006, L506.0400, L3300.8200, L501.9520, L100.0100, L509.8002, L500.4050 ####[facility] [address] [place], [address] AST [Catalytic activity/Vol] 16 U/L Normal <=31 [facility] Comment on above: Performed By: #### L 503.0106, L3890.6006, L506.0400, L3300.8200, L501.9520, L100.0100, L509.8002, L500.4050 ####[facility] [address] [place], [address] Bilirubin [Mass/Vol] 0.22 mg/dL Normal 0.00-1.30 [facility] Comment on above: Performed By: #### L 503.0106, L3890.6006, L506.0400, L3300.8200, L501.9520, L100.0100, L509.8002, L500.4050 ####[facility] [address] [place], [address] BUN/CRE 13.1 RATIO Normal 10-20 [facility] Comment on above: Performed By: #### L 503.0106, L3890.6006, L506.0400, L3300.8200, L501.9520, L100.0100, L509.8002, L500.4050 ####[facility] [address] [place], [address] Calcium [Mass/Vol] 9.1 mg/dL Normal 7.6-11.0 [facility] Comment on above: Performed By: #### L 503.0106, L3890.6006, L506.0400, L3300.8200, L501.9520, L100.0100, L509.8002, L500.4050 ####[facility] [address] [place], [address] Chloride [Moles/Vol] 101 mmol/L Normal 98-108 [facility] Comment on above: Performed By: #### L 503.0106, L3890.6006, L506.0400, L3300.8200, L501.9520, L100.0100, L509.8002, L500.4050 ####[facility] [address] [place], [place], [phone]) CO2 [Moles/Vol] 20.9 mmol/L Low 21.0-32.0 [facility] Comment on above: Performed By: #### L 503.0106, L3890.6006, L506.0400, L3300.8200, L501.9520, L100.0100, L509.8002, L500.4050 ####[facility] [address] [place], [place], [phone] Creatinine [Mass/Vol] 0.66 mg/dL Low 0.70-1.20 [facility] Comment on above: Performed By: #### L 503.0106, L3890.6006, L506.0400, L3300.8200, L501.9520, L100.0100, L509.8002, L500.4050 ####[facility] [address] [place], [place], [phone](137) GAP 13 Normal 5-15 [facility] Comment on above: Performed By: #### L 503.0106, L3890.6006, L506.0400, L3300.8200, L501.9520, L100.0100, L509.8002, L500.4050 ####[facility] [address] [place], [address] GFR/1.73 sq M.predicted among non-blacks MDRD (S/P/Bld) [Vol rate/Area] 119 mL/min/{1.73_m2} Normal >60 [facility] Comment on above: Result Comment: mL/m in/1.73m2 CKD-EPI Creatinine Equation (2020) Performed By: #### L 503.0106, L3890.6006, L506.0400, L3300.8200, L501.9520, L100.0100, L509.8002, L500.4050 ####[facility] [address] [place], [address] Globulin (S) [Mass/Vol] 3.2 g/dL Normal 2.2-4.2 [facility] Comment on above: Performed By: #### L 503.0106, L3890.6006, L506.0400, L3300.8200, L501.9520, L100.0100, L509.8002, L500.4050 ####[facility] [address] [place], [address] Glucose [Mass/Vol] 121 mg/dL High 70-99 [facility] Comment on above: Performed By: #### L 503.0106, L3890.6006, L506.0400, L3300.8200, L501.9520, L100.0100, L509.8002, L500.4050 ####[facility] [address] [place], [address] Potassium [Moles/Vol] 3.6 mmol/L Normal 3.3-5.1 [facility] Comment on above: Performed By: #### L 503.0106, L3890.6006, L506.0400, L3300.8200, L501.9520, L100.0100, L509.8002, L500.4050 ####[facility] [address] [place], [place], [phone] Sodium [Moles/Vol] 135 mmol/L Normal 133-145 [facility] Comment on above: Performed By: #### L 503.0106, L3890.6006, L506.0400, L3300.8200, L501.9520, L100.0100, L509.8002, L500.4050 ####[facility] [address] [place], [place], [phone] T PROT 6.8 g/dL Normal 5.9-8.4 [facility] Comment on above: Performed By: #### L 503.0106, L3890.6006, L506.0400, L3300.8200, L501.9520, L100.0100, L509.8002, L500.4050 ####[facility] [address] [place], [place], [phone] Urea nitrogen [Mass/Vol] 9 mg/dL Normal 4-19 [facility] Comment on above: Performed By: #### L 503.0106, L3890.6006, L506.0400, L3300.8200, L501.9520, L100.0100, L509.8002, L500.4050 ####[facility] [address] [place], [place], [phone] HIVon 01-17-2025 HIV Non-Reactive Normal Nonreactive [facility] Comment on above: Result Comment: Non- ReactiveReactiveRepeatedly reactive samples must be confirmed according toCDC recommended confirmatory algorithms. The subresults foreither HIVAG or AHIV can be used as an aid in the selectionof the confirmation algorithm for reactive samples.Send out specimens with Reactive results to [facility] forconfirmation.Order the HIV antibody detection and differentiation:lc#[id number] Performed By: #### L 503.0106, L3890.6006, L506.0400, L3300.8200, L501.9520, L100.0100, L509.8002, L500.4050 ####[facility] [address] [place], [place], [phone] M[facility] Office Visit Reporton 01-17-2025 Malt Loader Office Visit Report Normal [facility] Syphilis Antibodieson 2024 Syphilis Abs Non-Reactive Normal Nonreactive [facility] Comment on above: Performed By: #### L 503.0106, L3890.6006, L506.0400, L3300.8200, L501.9520, L100.0100, L509.8002, L500.4050 ####[facility] [address] [place], [place], [phone] T4 Free Directon 01-17-2025 T4 FREE DIRECT 1.00 ng/dL Normal 0.76-1.46 [facility] Comment on above: Performed By: #### L 503.0106, L3890.6006, L506.0400, L3300.8200, L501.9520, L100.0100, L509.8002, L500.4050 ####[facility] [address] [place], [place], [phone] Thyroid Stim Hormone (TSH)on 01-17-2025 TSH 1.760 uIU/mL Normal 0.300-4.200 [facility] Comment on above: Performed By: #### L 503.0106, L3890.6006, L506.0400, L3300.8200, L501.9520, L100.0100, L509.8002, L500.4050 ####[facility] [address] [place], [place], [phone] Vitamin B12on 01-17-2025 Cobalamin (Vitamin B12) [Mass/Vol] 230 pg/mL Normal 180-914 [facility] Comment on above: Performed By: #### L 503.0106, L3890.6006, L506.0400, L3300.8200, L501.9520, L100.0100, L509.8002, L500.4050 ####[facility] [address] [place], [address] Malt Loader Office Visit Reporton 01-06-2025 Malt Loader Office Visit Report Normal [facility] Malt Loader Office Visit Reporton 12-08-2024 Malt Loader Office Visit Report Normal [facility] MR/BMS.BPon 12-07-2024 MR/BMS.BP Normal [facility] L3410.9992on 11-12-2024 [facility] Misc. COMMENT Normal . [facility] Comment on above: Order Comment: [id number] 1AFP SERUM RT Result Comment: Test Ordered: [id number] AFP, Serum, Open Spina BifidaResults Report TG Reference Range: .Test Results: Note: TG *Screen Negative* Reference Range: .Gest. Age on Collection Date 17.3 weeks TG Reference Range: .Gestat. Age Based On Ultrasound TG Reference Range: . 17:2 on 11/09/2024Recalculations are not recommended when gestational datingby LMP and ultrasound are within 10 days.Maternal [age] yr TG Reference Range: .Race Comment TG Reference Range: .Not provided.Weight 152 lbs TG Reference Range: .Insulin Dep Diabetes No TG Reference Range: .Multiple Gestation No TG Reference Range: .AFP Value 69.5 ng/mL TG Reference Range: .AFP MoM 1.78 TG Reference Range: .OSBR Risk 1 IN 1341 TG Reference Range: .Interpretation Comment TG Reference Range: .Interpretation: Screen NegativeThis result is screen negative for OSB. The AFP MoMcalculated is based on the gestational age provided. MS-AFPcan identify up to 80% of open neural tube defects.Closed neural tube defects and some open defects may not bedetected by this test. This test does not screen for fetalDown Syndrome or Trisomy 18. If screening for Down Syndromeor Trisomy 18 is desired, contact [employer] to discuss available options. The AmericanCollege of Obstetricians and Gynecologists recommendsamniocentesis be offered to women age 35 and older.Comment: Comment TG Reference Range: .Jacquelyn Mason, Ph.D., DABCCDirectorReferences: Available Upon Request.Multiples Of Median Cutoffs For AFP ElevationsSingleton 2.5 Black 2.8IDD 2.0 Twins 4.5 Abbreviation DefinitionsIDD - Insulin Dep DiabetesOSBR - Open Spina Bifida RiskFor further inquiries contact [employer] at [phone].This test was developed and its performance characteristicsdetermined by [employer]. It has not been cleared or approvedby the Food and Drug Administration.Performed at: - Jaco Solarsi [id number] [place], [place] [id number] Director: Fabiola Carson [facility]ly [facility], Phone: [phone] at: - [address] [id number] Director: Joseph Doe PhD, Phone: [phone] Performed By: #### L 3410.9992 ####[facility] [address] [place], [place], [phone] Malt Loader Office Visit Reporton 11-09-2024 Malt Loader Office Visit Report Normal [facility] Malt Loader Office Visit Reporton 10-20-2024 Malt Loader Office Visit Report Normal [facility] MR/BMS.BPon 10-19-2024 MR/BMS.BP Normal [facility] CBC W/Diff, Automatedon 09-18 Absolute Lymph 1.98 X10 3/uL Normal 0.83-4.51 [facility] Comment on above: Performed By: #### B , L3890.6301, L3890.6102, L900.0098, L100.0100, L509.8002, L509.4006, L3890.6006 ####[facility] [address] [place], [place], [phone] Absolute Neut 5.1 X10 3/uL Normal 2.0-7.7 [facility] Comment on above: Performed By: #### B TS, L3890.6301, L3890.6102, L900.0098, L100.0100, L509.8002, L509.4006, L3890.6006 ####[facility] [address] [place], [address] Basophils/100 WBC (Bld) 0.4 % Normal 0-1 [facility] Comment on above: Performed By: #### B TS, L3890.6301, L3890.6102, L900.0098, L100.0100, L509.8002, L509.4006, L3890.6006 ####[facility] [address] [place], [address] Eosinophils/100 WBC (Bld) 0.9 % Normal 0-5 [facility] Comment on above: Performed By: #### B TS, L3890.6301, L3890.6102, L900.0098, L100.0100, L509.8002, L509.4006, L3890.6006 ####[facility] [address] [place], [address] Erythrocyte distribution width (RBC) [Ratio] 13.4 % Normal 11.6-14.6 [facility] Comment on above: Performed By: #### B TS, L3890.6301, L3890.6102, L900.0098, L100.0100, L509.8002, L509.4006, L3890.6006 ####[facility] [address] [place], [address] Hematocrit (Bld) [Volume fraction] 34.9 % Low 37-47 [facility] Comment on above: Performed By: #### B TS, L3890.6301, L3890.6102, L900.0098, L100.0100, L509.8002, L509.4006, L3890.6006 ####[facility] [address] [place], [address] Hemoglobin (Bld) [Mass/Vol] 11.8 g/dL Low 12.0-15.0 [facility] Comment on above: Performed By: #### B TS, L3890.6301, L3890.6102, L900.0098, L100.0100, L509.8002, L509.4006, L3890.6006 ####[facility] [address] [place], [address] IG% 0.500 Normal 0.0-0.9 [facility] Comment on above: Result Comment: IG% - Immature Granulocytes (promyelocytes, myelocytes andmetamyelocytes) > 1% indicates that a LEFT SHIFT is Present. Performed By: #### B TS, L3890.6301, L3890.6102, L900.0098, L100.0100, L509.8002, L509.4006, L3890.6006 ####[facility] [address] [facility] [place], [address] Lymphocytes/100 WBC (Bld) 25.8 % Normal 19-41 [facility] Comment on above: Performed By: #### B TS, L3890.6301, L3890.6102, L900.0098, L100.0100, L509.8002, L509.4006, L3890.6006 ####[facility] [address] [facility] [place], [address] MCH (RBC) [Entitic mass] 30.4 pg Normal 27.0-32.0 [facility] Comment on above: Performed By: #### B TS, L3890.6301, L3890.6102, L900.0098, L100.0100, L509.8002, L509.4006, L3890.6006 ####[facility] [address] [place], [address] MCHC (RBC) [Mass/Vol] 33.8 g/dL Normal 32-36 [facility] Comment on above: Performed By: #### B TS, L3890.6301, L3890.6102, L900.0098, L100.0100, L509.8002, L509.4006, L3890.6006 ####[facility] [address] [place], [address] MCV (RBC) [Entitic vol] 89.9 fL Normal 81-99 [facility] Comment on above: Performed By: #### B TS, L3890.6301, L3890.6102, L900.0098, L100.0100, L509.8002, L509.4006, L3890.6006 ####[facility] [address] [place], [address] Monocytes/100 WBC (Bld) 5.7 % Normal 0-10 [facility] Comment on above: Performed By: #### B TS, L3890.6301, L3890.6102, L900.0098, L100.0100, L509.8002, L509.4006, L3890.6006 ####[facility] [address] [place], [address] Neutrophils/100 WBC (Bld) 66.7 % Normal 47-70 [facility] Comment on above: Performed By: #### B TS, L3890.6301, L3890.6102, L900.0098, L100.0100, L509.8002, L509.4006, L3890.6006 ####[facility] [address] [place], [address] Nucleated RBC (Bld) [#/Vol] 0 10*3/uL Normal 0-5 [facility] Comment on above: Performed By: #### B TS, L3890.6301, L3890.6102, L900.0098, L100.0100, L509.8002, L509.4006, L3890.6006 ####[facility] [address] [place], [address] Platelet mean volume (Bld) [Entitic vol] 11.8 fL Normal 6.2-12.0 [facility] Comment on above: Performed By: #### B TS, L3890.6301, L3890.6102, L900.0098, L100.0100, L509.8002, L509.4006, L3890.6006 ####[facility] [address] [place], [address] Platelets (Bld) [#/Vol] 301 10*3/uL Normal 150-450 [facility] Comment on above: Performed By: #### B TS, L3890.6301, L3890.6102, L900.0098, L100.0100, L509.8002, L509.4006, L3890.6006 ####[facility] [address] [place], [address] RBC (Bld) [#/Vol] 3.88 10*6/uL Low 4.2-5.4 [facility] Comment on above: Performed By: #### B TS, L3890.6301, L3890.6102, L900.0098, L100.0100, L509.8002, L509.4006, L3890.6006 ####[facility] [address] [place], [address] RDW SD 43.8 fl Normal 35.1-43.9 [facility] Comment on above: Performed By: #### B TS, L3890.6301, L3890.6102, L900.0098, L100.0100, L509.8002, L509.4006, L3890.6006 ####[facility] [address] [place], [address] WBC (Bld) [#/Vol] 7.7 10*3/uL Normal 4.4-11.0 [facility] Comment on above: Performed By: #### B TS, L3890.6301, L3890.6102, L900.0098, L100.0100, L509.8002, L509.4006, L3890.6006 ####[facility] [address] [facility] [place], [place], [phone] L3890.6006on 10-06-2024 HIV Non-Reactive Normal Nonreactive [facility] Comment on above: Result Comment: Non- ReactiveReactiveRepeatedly reactive samples must be confirmed according [facility] recommended confirmatory algorithms. The subresults foreither HIVAG or AHIV can be used as an aid in the selectionof the confirmation algorithm for reactive samples.Send out specimens with Reactive results to [facility] forconfirmation.Order the HIV antibody detection and differentiation:lc#[id number] Performed By: #### B TS, L3890.6301, L3890.6102, L900.0098, L100.0100, L509.8002, L509.4006, L3890.6006 ####[facility] [address] [facility] [place], [place], [address] L3890.6102on 10-06-2024 HEP B Surf Ag Non-Reactive Normal Nonreactive [facility] Comment on above: Result Comment: Reac tive: Presumptive evidence of HBV. Repeatedly reactivesamples must be confirmed using a neutralization test([employer] HBsAg Confirmatory Test)Non-Reactive: HBsAg not detected; does not exclude thepossibility of exposure to HBV Performed By: #### B TS, L3890.6301, L3890.6102, L900.0098, L100.0100, L509.8002, L509.4006, L3890.6006 ####[facility] [address] [facility] [place], [place], [address] L3890.6301on 10-06-2024 Hepatitis C Ab Non-Reactive Normal Nonreactive [facility] Comment on above: Result Comment: Reac tive: Presumptive evidence of antibodies to HCV. [facility] recommendations for supplemental testing.Non-Reactive: Antibodies to HCV were not detected; does notexclude the possibility of exposure to HCVReactive Results are presumptive evidence of antibodies toHCV. Follow CDC recommendations for supplemental testing.Order confirmation testing: HCV Quant by PCR testing -HCVPCR lc#[id number] Non Reactive: < 0.8 Equivocal: >/= 0.8 to < 1.0 Reactive: >/= 1.0The [facility] requires that a reactive/equivocal HCV antibodyresult be sent out for confirmation. HCV Quant by PCRtesting. Performed By: #### B TS, L3890.6301, L3890.6102, L900.0098, L100.0100, L509.8002, L509.4006, L3890.6006 ####[facility] [address] [place], [place], [address] L509.4006on 10-06-2024 Rubella IgG REAC Normal Nonreactive [facility] Comment on above: Result Comment: Anti body Result: InterpretationNon-Reactive: Non-ImmuneReactive: ImmuneThe following results were obtained with the ElecsysRubella IgG assay. Results from assays of othermanufacturers cannot be used interchangeably. Performed By: #### B TS, L3890.6301, L3890.6102, L900.0098, L100.0100, L509.8002, L509.4006, L3890.6006 ####[facility] [address] [place], [place], [address] L509.8002on 10-06-2024 Syphilis Abs Non-Reactive Normal Nonreactive [facility] Comment on above: Performed By: #### B TS, L3890.6301, L3890.6102, L900.0098, L100.0100, L509.8002, L509.4006, L3890.6006 ####[facility] [address] [place], [place], [phone] NATERAon 10-06-2024 NATURA SEE SCANNED REPORT Normal [facility] Comment on above: Performed By: #### B TS, L3890.6301, L3890.6102, L900.0098, L100.0100, L509.8002, L509.4006, L3890.6006 ####[facility] [address] [place], [address] Malt Loader Office Visit Reporton 10-06-2024 Malt Loader Office Visit Report Normal [facility] Type AND Screenon 10-06-2024 Ab SCREEN GEL Negative Normal [facility] Comment on above: Order Comment: PN Performed By: #### B TS, L3890.6301, L3890.6102, L900.0098, L100.0100, L509.8002, L509.4006, L3890.6006 ####[facility] [address] [place], [place], [phone] MISCELLANEOUS SENDOUTon 09-18 Miscellaneous Results Patient results scanned into [employer] Invalid Interpretation Code [facility] Comment on above: Order Comment: Name of Test:->NAIT What is the sendout facility name, if known?->[facility] Release to patient->Automatic (5 days after final result) Progress Noteon 09-27-2024 License Inspector Authentication Interface Message Text Maternal Medicine Consult [...] term pregnancies. The second was delivered at [place] by section after continuing Category II tracing. The baby was critical and transferred to [facility] unit. It passed the same day with severe anemia that could not be corrected and a pulmonary hemorrhage. There was a documented spontaneous fetomaternal hemorrhage with a question (not proven by placental examination but likely) of abruption. (See complete preconceptual consultation by Dr. Maher from 05/08/22). Yessi was admitted to [place] from her OB office. She had noted decreased FM with a concerning NST (spontaneous deceleration) in OB office. She was transferred to hospital and delivered by urgent C/S. The was transferred quickly after delivery to [facility] for severe anemia (subsequently noted severe fetomaternal [...] Gen ND Comments: Stat LTCS, transported to [facility] NICU with anemia and passed of pulmonary hemorrhage Complications: Category II heart rate tracing during labor and delivery 2 Term 12/05/19 39w0d 2.75 kg F Vag-Spont EPI N MARK Comments: SGA,GDMA1 1 2017 Past Medical History: Diagnosis Date Anemia 2nd [...] No Ne (more content not included)... Normal [facility] Emergency Department Summary on 09-26-2024 Emergency Department Summary Normal [facility] M100.678on 09-26-2024 M100.678 Pending SARS-CoV-2 (COVID 19) Negative INFLUENZA A Negative INFLUENZA B Negative RSV PCR Negative [facility] Comment on above: Performed By: #### M 100.678 ####[facility] [address] [place], [address] MR/PATRICIA.BPon 09-15-2024 MR/PATRICIA.BP [facility] Malt Loader Office Visit Reporton 09-15-2024 Malt Loader Office Visit Report Normal [facility] Malt Loader Office Visit Reporton 09-08-2024 Malt Loader Office Visit Report Normal [facility] Malt Loader Office Visit Reporton 08-30-2024 Malt Loader Office Visit Report Normal [facility] Chlamydia/GC MAE aptimaon CHLAMY,NUC ACID Negative Normal Negative [facility] Comment on above: Performed By: #### L 7000.1800, M100.2200 ####[facility] [address] [place], [address] GC BY NUC ACID Negative Normal Negative [facility] Comment on above: Result Comment: Perf ormed at: =G - [facility] [address] [id number] Director: Екатерина Masterson MD, Phone: [phone] Performed By: #### L 7000.1800, M100.2200 ####[facility] [address] [place] [place], [address] Urine Cultureon 08-25-2024 [facility] Mixed Gram Pos Gram Neg Org [place] Count 11,000-25,000 [facility]IX[facility] Mixed contaminants. Submit a new specimen if indicated. Normal [facility] Comment on above: Performed By: #### L 7000.1800, M100.2200 ####[facility] [address] [place], [address] Malt Loader Office Visit Reporton 08-23-2024 Malt Loader Office Visit Report Normal [facility] CBC W/Diff, Automatedon 07-22 Absolute Lymph 2.06 X10 3/uL Normal 0.83-4.51 [facility] Comment on above: Performed By: #### L 100.0100, L500.4050 ####[facility] [address] [place], [address] Absolute Neut 4.2 X10 3/uL Normal 2.0-7.7 [facility] Comment on above: Performed By: #### L 100.0100, L500.4050 ####[facility] [address] [place], [address] Basophils/100 WBC (Bld) 0.6 % Normal 0-1 [facility] Comment on above: Performed By: #### L 100.0100, L500.4050 ####[facility] [address] [place], [address] Eosinophils/100 WBC (Bld) 3.2 % Normal 0-5 [facility] Comment on above: Performed By: #### L 100.0100, L500.4050 ####[facility] [address] [place], [address] Erythrocyte distribution width (RBC) [Ratio] 13.2 % Normal 11.6-14.6 [facility] Comment on above: Performed By: #### L 100.0100, L500.4050 ####[facility] [address] [place], [address] Hematocrit (Bld) [Volume fraction] 36.3 % Low 37-47 [facility] Comment on above: Performed By: #### L 100.0100, L500.4050 ####[facility] [address] [place], [address] Hemoglobin (Bld) [Mass/Vol] 12.4 g/dL Normal 12.0-15.0 [facility] Comment on above: Performed By: #### L 100.0100, L500.4050 ####[facility] [address] [place], [address] IG% 0.300 Normal 0.0-0.9 [facility] Comment on above: Result Comment: IG% - Immature Granulocytes (promyelocytes, myelocytes andmetamyelocytes) > 1% indicates that a LEFT SHIFT is Present. Performed By: #### L 100.0100, L500.4050 ####[facility] [address] [place], [address] Lymphocytes/100 WBC (Bld) 29.0 % Normal 19-41 [facility] Comment on above: Performed By: #### L 100.0100, L500.4050 ####[facility] [address] [place], [address] MCH (RBC) [Entitic mass] 30.5 pg Normal 27.0-32.0 [facility] Comment on above: Performed By: #### L 100.0100, L500.4050 ####[facility] [address] [place], [address] MCHC (RBC) [Mass/Vol] 34.2 g/dL Normal 32-36 [facility] Comment on above: Performed By: #### L 100.0100, L500.4050 ####[facility] [address] [place], [address] MCV (RBC) [Entitic vol] 89.2 fL Normal 81-99 [facility] Comment on above: Performed By: #### L 100.0100, L500.4050 ####[facility] [address] [place], [address] Monocytes/100 WBC (Bld) 7.3 % Normal 0-10 [facility] Comment on above: Performed By: #### L 100.0100, L500.4050 ####[facility] [address] [place], [address] Neutrophils/100 WBC (Bld) 59.6 % Normal 47-70 [facility] Comment on above: Performed By: #### L 100.0100, L500.4050 ####[facility] [address] [place], [address] Nucleated RBC (Bld) [#/Vol] 0 10*3/uL Normal 0-5 [facility] Comment on above: Performed By: #### L 100.0100, L500.4050 ####[facility] [address] [place], [address] Platelet mean volume (Bld) [Entitic vol] 11.4 fL Normal 6.2-12.0 [facility] Comment on above: Performed By: #### L 100.0100, L500.4050 ####[facility] [address] [place], [address] Platelets (Bld) [#/Vol] 268 10*3/uL Normal 150-450 [facility] Comment on above: Performed By: #### L 100.0100, L500.4050 ####[facility] [address] [place], [address] RBC (Bld) [#/Vol] 4.07 10*6/uL Low 4.2-5.4 [facility] Comment on above: Performed By: #### L 100.0100, L500.4050 ####[facility] [address] [place], [address] RDW SD 42.6 fl Normal 35.1-43.9 [facility] Comment on above: Performed By: #### L 100.0100, L500.4050 ####[facility] [address] [place], [address] WBC (Bld) [#/Vol] 7.1 10*3/uL Normal 4.4-11.0 [facility] Comment on above: Performed By: #### L 100.0100, L500.4050 ####[facility] [address] [place], [address] Comprehensive Metabolic Prof ilon 08-17-2024 Albumin [Mass/Vol] 3.8 g/dL Normal 3.2-5.0 [facility] Comment on above: Performed By: #### L 100.0100, L500.4050 ####[facility] [address] [place], [address] Albumin/Globulin [Mass ratio] 0.9 {ratio} Normal 0.9-2.4 [facility] [facility] Comment on above: Performed By: #### L 100.0100, L500.4050 ####[facility] [address] [place], [address] ALK P 80 U/L Normal 45-117 [facility] Comment on above: Performed By: #### L 100.0100, L500.4050 ####[facility] [address] [place], [address] ALT [Catalytic activity/Vol] 17 U/L Normal 13-56 [facility] Comment on above: Performed By: #### L 100.0100, L500.4050 ####[facility] [address] [place], [address] AST [Catalytic activity/Vol] 7 U/L Low 15-37 [facility] Comment on above: Performed By: #### L 100.0100, L500.4050 ####[facility] [address] [place], [address] Bilirubin [Mass/Vol] 0.50 mg/dL Normal 0.20-1.00 [facility] Comment on above: Result Comment: For patients on eltrombopag therapy, use of Dimension Pray TBIL is not recommended. Performed By: #### L 100.0100, L500.4050 ####[facility] [address] [place], [address] BUN/CRE 10.2 RATIO Normal 10-20 [facility] Comment on above: Performed By: #### L 100.0100, L500.4050 ####[facility] [address] [place], [address] CA,Total 9.2 mg/dL Normal 8.5-10.1 [facility] Comment on above: Performed By: #### L 100.0100, L500.4050 ####[facility] [address] [place], [address] Chloride [Moles/Vol] 105 mmol/L Normal 98-107 [facility] Comment on above: Performed By: #### L 100.0100, L500.4050 ####[facility] [address] [place], [address] CO2 [Moles/Vol] 26.0 mmol/L Normal 21.0-32.0 [facility] Comment on above: Performed By: #### L 100.0100, L500.4050 ####[facility] [address] [place], [address] Creatinine [Mass/Vol] 0.88 mg/dL Normal 0.55-1.02 [facility] Comment on above: Result Comment: The validity of the calculated GFR GFRAA in patients over70 years has not been determined. Clinical correlation isessential. Performed By: #### L 100.0100, L500.4050 ####[facility] [address] [place], [address] EST GFR - AA 94 mL/min Normal >60 [facility] Comment on above: Result Comment: Afri can Uzbek GFR Calc Performed By: #### L 100.0100, L500.4050 ####[facility] [address] [place], [address] GAP 6 Normal 5-15 [facility] Comment on above: Performed By: #### L 100.0100, L500.4050 ####[facility] [address] [place], [address] GFR/1.73 sq M.predicted among non-blacks MDRD (S/P/Bld) [Vol rate/Area] 78 mL/min/{1.73_m2} Normal >60 [facility] Comment on above: Result Comment: Non- GFR Calc Performed By: #### L 100.0100, L500.4050 ####[facility] [address] [place], [address] Globulin (S) [Mass/Vol] 4.1 g/dL Normal 2.2-4.2 [facility] Comment on above: Performed By: #### L 100.0100, L500.4050 ####[facility] [address] [place], [address] Glucose [Mass/Vol] 94 mg/dL Normal 74-106 [facility] Comment on above: Performed By: #### L 100.0100, L500.4050 ####[facility] [address] [place], [address] Potassium [Moles/Vol] 3.6 mmol/L Normal 3.5-5.1 [facility] Comment on above: Performed By: #### L 100.0100, L500.4050 ####[facility] [address] [place], [address] Sodium [Moles/Vol] 137 mmol/L Normal 136-145 [facility] Comment on above: Performed By: #### L 100.0100, L500.4050 ####[facility] [address] [place], [address] T PROT 7.9 g/dL Normal 6.4-8.2 [facility] Comment on above: Performed By: #### L 100.0100, L500.4050 ####[facility] [address] [place], [address] Urea nitrogen [Mass/Vol] 9 mg/dL Normal 7-18 [facility] Comment on above: Performed By: #### L 100.0100, L500.4050 ####[facility] [address] [place], [address] Transvaginal w/Preg USon Transvaginal w/Preg US Normal [facility] hCG Titer Quant., Serumon HCG QUANT. 143 mIU/mL [address] Comment on above: Result Comment: hCG levels with Gestational AgeGestational Age hCG mIU/mL (IU/L)0.2 - 1 week 5 - 501-2 weeks 50 - 5002-3 weeks 100 - 80962-0 weeks 500 - 651507-3 weeks 1000 - 206513-7 weeks 36277 - 100,0006-8 weeks 64594 - 200,0002-3 months 08964 - 100,000 Performed By: #### L 700.8000 ####[facility] [address] [place], [place], [address] hCG Titer Quant., Serumon HCG QUANT. 91 mIU/mL [address] Comment on above: Result Comment: hCG levels with Gestational AgeGestational Age hCG mIU/mL (IU/L)0.2 - 1 week 5 - 501-2 weeks 50 - 5002-3 weeks 100 - 73810-0 weeks 500 - 578865-6 weeks 1000 - 002977-2 weeks 77970 - 100,0006-8 weeks 83515 - 200,0002-3 months 44406 - 100,000 Performed By: #### L 700.8000 ####[facility] [address] [place], [place], [address] hCG Titer Quant., Serumon HCG QUANT. 55 mIU/mL [address] Comment on above: Result Comment: hCG levels with Gestational AgeGestational Age hCG mIU/mL (IU/L)0.2 - 1 week 5 - 501-2 weeks 50 - 5002-3 weeks 100 - 85663-3 weeks 500 - 313486-1 weeks 1000 - 030382-7 weeks 23187 - 100,0006-8 weeks 89658 - 200,0002-3 months 70860 - 100,000 Performed By: #### L 700.8000 ####[facility] [address] [place], [address] MR/BMS.BPon 07-06-2024 MR/BMS.BP Normal [facility] Chest PA and Lateralon 05-24 Chest PA and Lateral Normal [facility] Urgent Care Visit Reporton 1 07-24-2023 Urgent Care Visit Report Normal [facility] Thyroidon 05-13-2024 Thyroid Normal [facility] MR/BMS.BPon 04-28-2024 MR/BMS.BP Normal [facility] Hepatitis B Surface Antibody Ordered By: Background Lab on 02-23-2024 HBV surface Ab Ql (S) Positive Abnormal Negative mIU/mL [facility] Comment on above: Reference value: Unv accinated: Negative Vaccinated: Positive Anti-HBs concentration detected at > or = 11.5 mIU/mL. Individual is considered to be immune to infection with HBV. Hep Bs Antibody, QN 798.00 [facility] Comment on above: Reference Value: > o r = 11.5 mIU/mL - Positive Anti-HBs concentration detected at > or = 11.5 mIU/mL. Individual is considered to be immune to infection with HBV. Interpretation and review of laboratory results Abnormal [facility] Laboratory - Chemistry and C hemistry - challengeOrdered By: Analia Kimbrough on 06-17-2023 HCG ( test) Ql (U) Negative [facility] Comment on above: Very dilute urine sp ecimens, as indicated by a low specificgravity, may not contain customer engagement representative levels of hCG. If is still suspected, a first morning urinespecimen should be collected 48 hours later and tested. Basophil percentageOrdered B y: Analia Kimbrough on 06-13-2023 WBC (Bld) [#/Vol] 8.0 10*3/uL 4.4-11.0 [facility] Blood erythrocytes count (nu mber/volume)Ordered By: Analia Kimbrough on 06-13-2023 RBC (Bld) [#/Vol] 4.16 10*6/uL 4.2-5.4 [facility] Blood hemoglobin measurement (mass/volume)Ordered By: Analia Kimbrough on 06-13-2023 Hemoglobin (Bld) [Mass/Vol] 12.5 g/dL 12.0-15.0 [facility] Blood platelet mean volumeOr dered By: Analia Kimbrough on 06-13-2023 Platelet mean volume (Bld) [Entitic vol] 11.7 fL 6.2-12.0 [facility] Determination of erythrocyte mean corpuscular volume (MCV)Ordered By: Analia Kimbrough on 06-13-2023 MCV (RBC) [Entitic vol] 90.9 fL 81-99 [facility] Hematocrit Auto (Bld) [Volum e fraction]Ordered By: Analia Kimbrough on 06-13-2023 Hematocrit (Bld) [Volume fraction] 37.8 % 37-47 [facility] Laboratory - Hematology and Cell countsOrdered By: Analia Kimbrough on 06-13-2023 Erythrocyte distribution width (RBC) [Entitic vol] 40.6 fL 35.1-43.9 [facility] Erythrocyte distribution width (RBC) [Ratio] 12.4 % 11.6-14.6 [facility] MCH (RBC) [Entitic mass] 30.0 pg 27.0-32.0 [facility] MCHC Auto (RBC) [Mass/Vol]Or dered By: Analia Kimbroguh on 06-13-2023 MCHC (RBC) [Mass/Vol] 33.1 g/dL 32-36 [facility] Platelets bldOrdered By: Gena Kimbrough on 06-13-2023 Platelets (Bld) [#/Vol] 279 10*3/uL 150-450 [facility] No Panel InformationOrdered By: [facility] [place] [place] [employer] on 06-05-2023 Rubella IgG Antibody Reactive Nonreactive [facility] Comment on above: Antibody Results Int erpretation of Immune Status Non Reactive Presumed Non-Immune Equivocal Equivocal Reactive Presumed Immune Serum measles virus IgG anti body assay (units/volume)Ordered By: Seeder on 06-05-2023 MeV IgG Qn (S) 32.0 AU/mL Immune >16.4 [facility] Comment on above: Negative <13.5 Equiv ocal 13.5 - 16.4 Positive >16.4Presence of antibodies to Rubeola is presumptive evidenceof immunity except when acute infection is suspected.Performed at: [facility] [address] [id number] Director: Joseph Doe PhD, Phone: [phone] Serum mumps virus IgG antibo dy assay (units/volume)Ordered By: [employer] on 06-05-2023 MuV IgG Qn (S) 16.1 AU/mL Immune >10.9 [facility] Comment on above: Negative <9.0 Equivo scout 9.0 - 10.9 Positive >10.9A positive result generally indicates past exposure toMumps virus or previous vaccination. Laboratory - Chemistry and C hemistry - challengeon 05-26-2023 HCG ( test) Ql (U) Negative [facility] Laboratory - Chemistry and C hemistry - challengeOrdered By: Saritha Salgado on 04-28-2023 Free T4 [Mass/Vol] 0.90 ng/dL 0.76-1.46 [facility] No Panel InformationOrdered By: Saritha Salgado on 04-28-2023 Thyroid Stimulating Hormone (TSH) 1.16 uIU/mL 0.358-3.74 [facility] Serum or plasma thyroperoxid ase antibody assay (units/volume)Ordered By: Saritha Salgado on 04-28-2023 TPO Ab Qn 23 [IU]/mL 0-34 [facility] Comment on above: Performed at: [address] Director: Joseph Doe PhD, Phone: [phone] Serum or plasma choriogonado tropin detectionOrdered By: Saritha Salgado on 03-18-2023 HCG ( test) Ql 3 mIU/mL <4 [facility] Comment on above: hCG levels with Gest ational AgeGestational Age hCG mIU/mL (IU/L)0.2 - 1 week 5 - 501-2 weeks 50 - 5002-3 weeks 100 - 49312-1 weeks 500 - 899609-7 weeks 1000 - 166360-9 weeks 01068 - 100,0006-8 weeks 92030 - 200,0002-3 months 50403 - 100,000 Serum or plasma choriogonado tropin detectionOrdered By: Saritha Salgado on 03-12-2023 HCG ( test) Ql 4 mIU/mL <4 [facility] Comment on above: hCG levels with Gest ational AgeGestational Age hCG mIU/mL (IU/L)0.2 - 1 week 5 - 501-2 weeks 50 - 5002-3 weeks 100 - 64014-1 weeks 500 - 307175-6 weeks 1000 - 854669-1 weeks 27204 - 100,0006-8 weeks 82677 - 200,0002-3 months 17655 - 100,000 Absolute lymphocyte countOrd ered By: Karey Street on 03-05-2023 Lymphocytes Auto (Unsp spec) [#/Vol] 2.30 10*3/uL 0.83-4.51 [facility] Basophil percentageOrdered B y: Karey Street on 03-05-2023 Basophils/100 WBC (Bld) 0.6 % 0-1 [facility] Eosinophils/100 WBC (Bld) 2.2 % 0-5 [facility] Neutrophils (Bld) [#/Vol] 4.1 10*3/uL 2.0-7.7 [facility] Neutrophils/100 WBC (Bld) 57.4 % 47-70 [facility] WBC (Bld) [#/Vol] 7.2 10*3/uL 4.4-11.0 [facility] Blood erythrocytes count (nu mber/volume)Ordered By: Karey Street on 03-05-2023 RBC (Bld) [#/Vol] 3.84 10*6/uL 4.2-5.4 [facility] Blood hemoglobin measurement (mass/volume)Ordered By: Karey Street on 03-05-2023 Hemoglobin (Bld) [Mass/Vol] 11.5 g/dL 12.0-15.0 [facility] Blood lymphocytes/100 leukoc ytesOrdered By: Karey Street on 03-05-2023 Lymphocytes/100 WBC (Bld) 32.0 % 19-41 [facility] Blood monocytes/100 leukocyt esOrdered By: Karey Street on 03-05-2023 Monocytes/100 WBC (Bld) 7.5 % 0-10 [facility] Blood platelet mean volumeOr dered By: Karey Street on 03-05-2023 Platelet mean volume (Bld) [Entitic vol] 12.0 fL 6.2-12.0 [facility] Determination of erythrocyte mean corpuscular volume (MCV)Ordered By: Karey Street on 03-05-2023 MCV (RBC) [Entitic vol] 94.3 fL 81-99 [facility] Hematocrit Auto (Bld) [Volum e fraction]Ordered By: Karey Street on 03-05-2023 Hematocrit (Bld) [Volume fraction] 36.2 % 37-47 [facility] Laboratory - Hematology and Cell countsOrdered By: Karey Street on 03-05-2023 Erythrocyte distribution width (RBC) [Entitic vol] 43.8 fL 35.1-43.9 [facility] Erythrocyte distribution width (RBC) [Ratio] 12.9 % 11.6-14.6 [facility] Immature granulocytes/100 WBC (Bld) 0.300 % 0.0-0.9 [facility] Comment on above: IG% - Immature Granu locytes (promyelocytes, myelocytes and metamyelocytes) > 1% indicates that a LEFT SHIFT is Present. MCH (RBC) [Entitic mass] 29.9 pg 27.0-32.0 [facility] Nucleated RBC/100 WBC (Bld) [Ratio] 0 % 0-5 [facility] MCHC Auto (RBC) [Mass/Vol]Or dered By: Karey Street on 03-05-2023 MCHC (RBC) [Mass/Vol] 31.8 g/dL 32-36 [facility] Platelets bldOrdered By: [address] on 03-05-2023 Platelets (Bld) [#/Vol] 279 10*3/uL 150-450 [facility] Serum or plasma choriogonado tropin detectionOrdered By: Karey Street on 03-05-2023 HCG ( test) Ql 7 mIU/mL <4 [facility] Serum or plasma choriogonado tropin detectionOrdered By: Karey Street on 02-19-2023 HCG ( test) Ql 36 mIU/mL <4 [facility] Comment on above: hCG levels with Gest ational AgeGestational Age hCG mIU/mL (IU/L)0.2 - 1 week 5 - 501-2 weeks 50 - 5002-3 weeks 100 - 39404-5 weeks 500 - 802175-9 weeks 1000 - 494535-8 weeks 44762 - 100,0006-8 weeks 77926 - 200,0002-3 months 34211 - 100,000 Serum or plasma choriogonado tropin detectionOrdered By: Karey Street on 02-12-2023 HCG ( test) Ql 77 mIU/mL <4 [facility] Comment on above: hCG levels with Gest ational AgeGestational Age hCG mIU/mL (IU/L)0.2 - 1 week 5 - 501-2 weeks 50 - 5002-3 weeks 100 - 66436-2 weeks 500 - 252748-6 weeks 1000 - 010921-5 weeks 80350 - 100,0006-8 weeks 64693 - 200,0002-3 months 15947 - 100,000 Serum or plasma choriogonado tropin detectionOrdered By: Saritha Salgado on 02-05-2023 HCG ( test) Ql 154 mIU/mL <4 [facility] Comment on above: hCG levels with Gest ational AgeGestational Age hCG mIU/mL (IU/L)0.2 - 1 week 5 - 501-2 weeks 50 - 5002-3 weeks 100 - 94134-6 weeks 500 - 120213-3 weeks 1000 - 821337-4 weeks 39374 - 100,0006-8 weeks 67468 - 200,0002-3 months 78471 - 100,000 Serum or plasma choriogonado tropin detectionOrdered By: Saritha Salgado on 01-29-2023 HCG ( test) Ql 361 mIU/mL <4 [facility] Comment on above: hCG levels with Gest ational AgeGestational Age hCG mIU/mL (IU/L)0.2 - 1 week 5 - 501-2 weeks 50 - 5002-3 weeks 100 - 31330-4 weeks 500 - 451996-1 weeks 1000 - 253093-2 weeks 63502 - 100,0006-8 weeks 43325 - 200,0002-3 months 08122 - 100,000 Serum or plasma choriogonado tropin detectionOrdered By: Saritha Salgado on 01-26-2023 HCG ( test) Ql 474 mIU/mL <4 [facility] Comment on above: hCG levels with Gest ational AgeGestational Age hCG mIU/mL (IU/L)0.2 - 1 week 5 - 501-2 weeks 50 - 5002-3 weeks 100 - 80119-7 weeks 500 - 072358-4 weeks 1000 - 880703-1 weeks 98655 - 100,0006-8 weeks 84180 - 200,0002-3 months 73838 - 100,000 Absolute lymphocyte countOrd ered By: Saritha Salgado on 01-23-2023 Lymphocytes Auto (Unsp spec) [#/Vol] 2.41 10*3/uL 0.83-4.51 [facility] Basophil percentageOrdered B y: Saritha Salgado on 01-23-2023 Basophils/100 WBC (Bld) 0.9 % 0-1 [facility] Bilirubin [Mass/Vol] 0.40 mg/dL 0.20-1.00 [facility] Comment on above: For patients on eltr ombopag therapy, use of Dimension Pray TBIL is not recommended. Chloride [Moles/Vol] 105 mmol/L 98-107 [facility] Eosinophils/100 WBC (Bld) 1.8 % 0-5 [facility] Glucose [Mass/Vol] 96 mg/dL 74-106 [facility] Neutrophils (Bld) [#/Vol] 3.6 10*3/uL 2.0-7.7 [facility] Neutrophils/100 WBC (Bld) 54.0 % 47-70 [facility] Potassium [Moles/Vol] 3.9 mmol/L 3.5-5.1 [facility] Protein [Mass/Vol] 7.9 g/dL 6.4-8.2 [facility] Sodium [Moles/Vol] 137 mmol/L 136-145 [facility] WBC (Bld) [#/Vol] 6.7 10*3/uL 4.4-11.0 [facility] Blood erythrocytes count (nu mber/volume)Ordered By: Saritha Salgado on 01-23-2023 RBC (Bld) [#/Vol] 4.09 10*6/uL 4.2-5.4 [facility] Blood hemoglobin measurement (mass/volume)Ordered By: Saritha Salgado on 01-23-2023 Hemoglobin (Bld) [Mass/Vol] 12.4 g/dL 12.0-15.0 [facility] Blood lymphocytes/100 leukoc ytesOrdered By: Saritha Salgado on 01-23-2023 Lymphocytes/100 WBC (Bld) 35.9 % 19-41 [facility] Blood monocytes/100 leukocyt esOrdered By: Saritha Salgado on 01-23-2023 Monocytes/100 WBC (Bld) 7.3 % 0-10 [facility] Blood platelet mean volumeOr dered By: Saritha Salgado on 01-23-2023 Platelet mean volume (Bld) [Entitic vol] 11.6 fL 6.2-12.0 [facility] Determination of erythrocyte mean corpuscular volume (MCV)Ordered By: Saritha Salgado on 01-23-2023 MCV (RBC) [Entitic vol] 91.0 fL 81-99 [facility] Hematocrit Auto (Bld) [Volum e fraction]Ordered By: Saritha Salgado on 01-23-2023 Hematocrit (Bld) [Volume fraction] 37.2 % 37-47 [facility] Laboratory - Chemistry and C hemistry - challengeOrdered By: Saritha Salgado on 01-23-2023 ALP [Catalytic activity/Vol] 82 U/L 45-117 [facility] ALT [Catalytic activity/Vol] 17 U/L 13-56 [facility] CO2 [Moles/Vol] 28.0 mmol/L 21.0-32.0 [facility] Globulin (S) [Mass/Vol] 4.0 g/dL 2.2-4.2 [facility] Urea nitrogen/Creatinine [Mass ratio] 11.0 mg/mg 10-20 [facility] - Hematology and Cell countsOrdered By: Saritha Salgado on 01-23-2023 Erythrocyte distribution width (RBC) [Entitic vol] 40.2 fL 35.1-43.9 [facility] Erythrocyte distribution width (RBC) [Ratio] 12.1 % 11.6-14.6 [facility] Immature granulocytes/100 WBC (Bld) 0.100 % 0.0-0.9 [facility] Comment on above: IG% - Immature Granu locytes (promyelocytes, myelocytes and metamyelocytes) > 1% indicates that a LEFT SHIFT is Present. MCH (RBC) [Entitic mass] 30.3 pg 27.0-32.0 [facility] Nucleated RBC/100 WBC (Bld) [Ratio] 0 % 0-5 [facility] Auto (RBC) [Mass/Vol]Or dered By: Saritha Salgado on 01-23-2023 MCHC (RBC) [Mass/Vol] 33.3 g/dL 32-36 [facility] No Panel InformationOrdered By: Saritha Salgado on 01-23-2023 Estimated GFR (MDRD) Amer 119 mL/min >60 [facility] Comment on above: GFR Calc Estimated GFR (MDRD) Non-Af Amer 99 mL/min >60 [facility] Comment on above: Non- GFR Calc Platelets bldOrdered By: Demario Salgado on 01-23-2023 Platelets (Bld) [#/Vol] 272 10*3/uL 150-450 [facility] Serum or plasma albumin rachel urement (mass/volume)Ordered By: Saritha Salgado on 01-23-2023 Albumin [Mass/Vol] 3.9 g/dL 3.2-5.0 [facility] Serum or plasma albumin/glob ulin mass ratioOrdered By: Saritha Salgado on 01-23-2023 Albumin/Globulin [Mass ratio] 1.0 {ratio} 0.9-2.4 [facility] Serum or plasma calcium rachel urement (mass/volume)Ordered By: Saritha Salgado on 01-23-2023 Calcium [Mass/Vol] 8.9 mg/dL 8.5-10.1 [facility] Serum or plasma choriogonado tropin detectionOrdered By: Saritha Salgado on 01-23-2023 HCG ( test) Ql 407 mIU/mL <4 [facility] Comment on above: hCG levels with Gest ational AgeGestational Age hCG mIU/mL (IU/L)0.2 - 1 week 5 - 501-2 weeks 50 - 5002-3 weeks 100 - 87814-2 weeks 500 - 630926-1 weeks 1000 - 660351-3 weeks 78415 - 100,0006-8 weeks 78410 - 200,0002-3 months 16118 - 100,000 Serum or plasma creatinine m easurement (mass/volume)Ordered By: Saritha Salgado on 01-23-2023 Creatinine [Mass/Vol] 0.73 mg/dL 0.55-1.02 [facility] Comment on above: The validity of the calculated GFR & GFRAA in patients over 70 years has not been determined. Clinical correlation is essential. Serum or plasma urea nitroge n measurement (mass/volume)Ordered By: Saritha Salgado on 01-23-2023 Urea nitrogen [Mass/Vol] 8 mg/dL 7-18 [facility] Thin prep Papanicolaou smear with manual screeningOrdered By: Saritha Salgado on 01-23-2023 Thin prep Papanicolaou smear with manual screening 17 U/L 15-37 [facility] Thin prep Papanicolaou smear with manual screening 4 5-15 [facility] Serum or plasma choriogonado tropin detectionOrdered By: Saritha Salgado on 01-22-2023 HCG ( test) Ql 321 mIU/mL <4 [facility] Comment on above: hCG levels with Gest ational AgeGestational Age hCG mIU/mL (IU/L)0.2 - 1 week 5 - 501-2 weeks 50 - 5002-3 weeks 100 - 87211-5 weeks 500 - 831675-0 weeks 1000 - 492395-8 weeks 22959 - 100,0006-8 weeks 59415 - 200,0002-3 months 42789 - 100,000 Serum or plasma choriogonado tropin detectionOrdered By: Saritha Salgado on 01-20-2023 HCG ( test) Ql 233 mIU/mL <4 [facility] Comment on above: hCG levels with Gest ational AgeGestational Age hCG mIU/mL (IU/L)0.2 - 1 week 5 - 501-2 weeks 50 - 5002-3 weeks 100 - 33783-2 weeks 500 - 390808-5 weeks 1000 - 368479-7 weeks 63462 - 100,0006-8 weeks 53117 - 200,0002-3 months 37984 - 100,000 Dilute David's viper venom timeOrdered By: Saritha Salgado on 01-16-2023 dRVVT Coag (PPP) [Time] 38.6 s 0.0-47.0 [facility] No Panel InformationOrdered By: Saritha Salgado on 01-16-2023 Anti-Cardiolipin IgM Antibody < 9 MPL U/mL 0-12 [facility] Comment on above: Negative: <13 Indete rminate: 13 - 20 Low-Med Positive: >20 - 80 High Positive: >80 Serum beta 2 glycoprotein 1 IgA antibody detectionOrdered By: Saritha Salgado on 01-16-2023 Beta 2 glycoprotein 1 IgA Ql (S) <9 0-25 [facility] Comment on above: Result Units: GPI Ig [...] glycoprotein 1 IgG Ql (S) <9 0-20 [facility] Comment on above: Result Units: GPI Ig [...] glycoprotein 1 IgM Ql (S) <9 0-32 [facility] Comment on above: Result Units: GPI Ig M unitsThe reference interval reflects a 3SD or 99th percentileinterval, which is thought to represent a potentiallyclinically significant result in accordance with theInternational Consensus Statement on the classificationcriteria for definitive antiphospholipid syndrome (APS). JThromb Haem 2006;4:295-306.Performed at: [facility] [address] [id number] Director: Nae Mendiola MD, Phone: [phone] at: [employer] [address] [id number] Director: Joseph Doe PhD, Phone: [phone] Serum cardiolipin IgG antibo dy assay by immunoassay (units/volume)Ordered By: Saritha Salgado on 01-16-2023 Cardiolipin IgG IA Qn (S) < 9 GPL U/mL 0-14 [facility] Comment on above: Negative: <15 Indete rminate: 15 - 20 Low-Med Positive: >20 - 80 High Positive: >80 Serum or plasma cardiolipin IgA antibody assay (units/volume)Ordered By: Saritha Salgado on 01-16-2023 Cardiolipin IgA Qn < 9 APL U/mL 0-11 [facility] Comment on above: Negative: <12 Indete rminate: 12 - 20 Low-Med Positive: >20 - 80 High Positive: >80 Thin prep Papanicolaou smear with manual screeningOrdered By: Saritha Salgado on 01-16-2023 Thin prep Papanicolaou smear with manual screening 37.8 sec 0.0-47.6 [facility] Thin prep Papanicolaou smear with manual screening 0.97 Ratio 0.00-1.34 [facility] Thin prep Papanicolaou smear with manual screening 35.1 sec 0.0-43.5 [facility] Thin prep Papanicolaou smear with manual screening Comment: . [facility] Comment on above: No lupus anticoagula nt was detected. Thrombin time in platelet po or plasmaOrdered By: Saritha Salgado on 01-16-2023 Thrombin time Coag (PPP) [Time] 17.0 sec 0.0-23.0 [facility] Serum or plasma choriogonado tropin detectionOrdered By: Saritha Salgado on 01-14-2023 HCG ( test) Ql 154 mIU/mL <4 [facility] Comment on above: hCG levels with Gest ational AgeGestational Age hCG mIU/mL (IU/L)0.2 - 1 week 5 - 501-2 weeks 50 - 5002-3 weeks 100 - 99571-1 weeks 500 - 127113-1 weeks 1000 - 648578-7 weeks 64026 - 100,0006-8 weeks 70790 - 200,0002-3 months 50743 - 100,000 Serum or plasma choriogonado tropin detectionOrdered By: Saritha Salgado on 01-12-2023 HCG ( test) Ql 122 mIU/mL <4 [facility] Comment on above: hCG levels with Gest ational AgeGestational Age hCG mIU/mL (IU/L)0.2 - 1 week 5 - 501-2 weeks 50 - 5002-3 weeks 100 - 36117-8 weeks 500 - 018702-6 weeks 1000 - 446480-9 weeks 89524 - 100,0006-8 weeks 61792 - 200,0002-3 months 54545 - 100,000 Serum or plasma choriogonado tropin detectionOrdered By: Karey Street on 11-04-2022 HCG ( test) Ql < 1 mIU/mL <4 [facility] Comment on above: hCG levels with Gest ational AgeGestational Age hCG mIU/mL (IU/L)0.2 - 1 week 5 - 501-2 weeks 50 - 5002-3 weeks 100 - 39403-6 weeks 500 - 451700-8 weeks 1000 - 567556-4 weeks 50051 - 100,0006-8 weeks 30943 - 200,0002-3 months 68304 - 100,000 Serum or plasma choriogonado tropin detectionOrdered By: Dr. Kimbrough on 10-31-2022 HCG ( test) Ql < 1 mIU/mL <4 [facility] Comment on above: hCG levels with Gest ational AgeGestational Age hCG mIU/mL (IU/L)0.2 - 1 week 5 - 501-2 weeks 50 - 5002-3 weeks 100 - 76700-7 weeks 500 - 179725-1 weeks 1000 - 596407-2 weeks 05564 - 100,0006-8 weeks 87267 - 200,0002-3 months 05617 - 100,000 Laboratory - Microbiology an d Antimicrobial susceptibilityon 09-23-2022 SARS-CoV-2 (COVID-19) RNA MAE+probe Ql (Unsp spec) Not detected [facility] No Panel Informationon 09-23 POC Nasal Swab Influenza A,B Not detected [facility] POC Nasal Swab RSV Not detected [facility] No Panel Informationon 05-24 Miscellaneous Test Comment MAILED SPECIMEN [facility] Work Phone: Laboratory - Chemistry and C hemistry - challengeon 04-15-2022 Free T4 [Mass/Vol] 0.91 ng/dL 0.76-1.46 [facility] Work Phone: No Panel Informationon 04-15 Thyroid Stimulating Hormone (TSH) 0.99 uIU/mL 0.358-3.74 [facility] Work Phone: Serum or plasma thyroperoxid ase antibody assay (units/volume)on 04-15-2022 TPO Ab Qn 15 [IU]/mL 0-34 [facility] Work Phone: Comment on above: Performed at: [facility] [address] [id number] Director: Joseph Doe PhD, Phone: [phone] Basophil percentageon 2021 WBC (Bld) [#/Vol] 9.9 10*3/uL 4.4-11.0 [facility] Work Phone: Blood erythrocytes count (nu mber/volume)on 02-26-2022 RBC (Bld) [#/Vol] 3.04 10*6/uL 4.2-5.4 [facility] Work Phone: Blood hemoglobin measurement (mass/volume)on 02-26-2022 Hemoglobin (Bld) [Mass/Vol] 9.6 g/dL 12.0-15.0 [facility] Work Phone: Blood platelet mean volumeon 02-26-2022 Platelet mean volume (Bld) [Entitic vol] 11.4 fL 6.2-12.0 [facility] Work Phone: Determination of erythrocyte mean corpuscular volume (MCV)on 02-26-2022 MCV (RBC) [Entitic vol] 94.4 fL 81-99 [facility] Work Phone: Dilute David's viper venom timeon 02-26-2022 dRVVT Coag (PPP) [Time] 32.2 s 0.0-47.0 [facility] Work Phone: Hematocrit Auto (Bld) [Volum e fraction]on 02-26-2022 Hematocrit (Bld) [Volume fraction] 28.7 % 37-47 [facility] Work Phone: Laboratory - Hematology and Cell countson 02-26-2022 Erythrocyte distribution width (RBC) [Entitic vol] 48.1 fL 35.1-43.9 [facility] Work Phone: Erythrocyte distribution width (RBC) [Ratio] 14.7 % 11.6-14.6 [facility] Work Phone: MCH (RBC) [Entitic mass] 31.6 pg 27.0-32.0 [facility] Work Phone: MCHC Auto (RBC) [Mass/Vol]on 02-26-2022 MCHC (RBC) [Mass/Vol] 33.4 g/dL 32-36 [facility] Work Phone: No Panel Informationon 02-26 Anti-Cardiolipin IgM Antibody < 9 MPL U/mL 0-12 [facility] Work Phone: Comment on above: Negative: <13 Indete rminate: 13 - 20 Low-Med Positive: >20 - 80 High Positive: >80 Thyroid Stimulating Hormone (TSH) 1.80 uIU/mL 0.358-3.74 [facility] Work Phone: Toxoplasma Comment Comment . [facility] Work Phone: Comment on above: It is presumed the p atient has not been infected with andis not undergoing an acute infection with Toxoplasma. Ifsymptoms persist, submit a new specimen after three weeks. Platelets bldon 02-26-2022 Platelets (Bld) [#/Vol] 175 10*3/uL 150-450 [facility] Work Phone: Serum Parvovirus B19 IgG ant ibody assay by immunoassay (units/volume)on 02-26-2022 Parvovirus B19 IgG IA Qn (S) 0.6 index 0.0-0.8 [facility] Work Phone: Comment on above: Negative <0.9 Equivo scout 0.9 - 1.1 Positive >1.1 Serum Parvovirus B19 IgM ant ibody assay by immunoassay (units/volume)on 02-26-2022 Parvovirus B19 IgM IA Qn (S) 0.3 index 0.0-0.8 [facility] Work Phone: Comment on above: Negative <0.9 Equivo scout 0.9 - 1.1 Positive >1.1 Serum Toxoplasma gondii IgG antibody assay (units/volume)on 02-26-2022 T. gondii IgG Qn (S) < 3.0 IU/mL 0.0-7.1 [facility] Work Phone: Comment on above: Negative <7.2 Equivo scout 7.2 - 8.7 Positive >8.7Performed at: [id number] [place], [place] [id number] Director: Joseph Doe PhD, Phone: [phone] Serum Toxoplasma gondii IgM antibody assay by immunoassay (units/volume)on 02-26-2022 T. gondii IgM IA Qn (S) < 3.0 AU/mL 0.0-7.9 [facility] Work Phone: Comment on above: Negative <8.0 Equivo scout 8.0 - 9.9 Positive >9.9 Serum beta 2 glycoprotein 1 IgA antibody detectionon 02-26-2022 Beta 2 glycoprotein 1 IgA Ql (S) <9 0-25 [facility] Work Phone: Comment on above: Result Units: GPI Ig A unitsThe reference interval reflects a 3SD or 99th percentileinterval, which is thought to represent a potentiallyclinically significant result in accordance with theInternational Consensus Statement on the classificationcriteria for definitive antiphospholipid syndrome (APS). JThromb Haem 2006;4:295-306. Serum beta 2 glycoprotein 1 IgG antibody detectionon 02-26-2022 Beta 2 glycoprotein 1 IgG Ql (S) <9 0-20 [facility] Work Phone: Comment on above: Result Units: GPI Ig G unitsThe reference interval reflects a 3SD or 99th percentileinterval, which is thought to represent a potentiallyclinically significant result in accordance with theInternational Consensus Statement on the classificationcriteria for definitive antiphospholipid syndrome (APS). JThromb Haem 2006;4:295-306. Serum beta 2 glycoprotein 1 IgM antibody detectionon 02-26-2022 Beta 2 glycoprotein 1 IgM Ql (S) <9 0-32 [facility] Work Phone: Comment on above: Result Units: [...] Qn (S) < 9 GPL U/mL 0-14 [facility] Work Phone: Comment on above: Negative: <15 Indete rminate: 15 - 20 Low-Med Positive: >20 - 80 High Positive: >80 Serum or plasma cardiolipin IgA antibody assay (units/volume)on 02-26-2022 Cardiolipin IgA Qn < 9 APL U/mL 0-11 [facility] Work Phone: Comment on above: Negative: <12 Indete rminate: 12 - 20 Low-Med Positive: >20 - 80 High Positive: >80 Serum or plasma cytomegalovi jong (CMV) IgG antibody assay (units/volume)on 02-26-2022 CMV IgG Qn < 0.60 U/mL 0.00-0.59 [facility] Work Phone: Comment on above: Negative <0.60 Equiv ocal 0.60 - 0.69 Positive >0.69 Serum or plasma cytomegalovi jong (CMV) IgM antibody assay (units/volume)on 02-26-2022 CMV IgM Qn < 30.0 AU/mL 0.0-29.9 [facility] Work Phone: Comment on above: Negative <30.0 Equiv ocal 30.0 - 34.9 Positive >34.9A positive result is generally indicative of acuteinfection, reactivation or persistent IgM production.Performed at: [address] [id number] Director: Nae Mendiola MD, Phone: [phone] at: [address] [id number] Director: Joseph Doe PhD, Phone: [phone] Thin prep Papanicolaou smear with manual screeningon 02-26-2022 Thin prep Papanicolaou smear with manual screening 34.7 sec 0.0-47.6 [facility] Work Phone: Thin prep Papanicolaou smear with manual screening 1.19 Ratio 0.00-1.34 [facility] Work Phone: Thin prep Papanicolaou smear with manual screening 37.1 sec 0.0-51.9 [facility] Work Phone: Thin prep Papanicolaou smear with manual screening Comment: . [facility] Work Phone: Comment on above: No lupus anticoagula nt was detected. Thrombin time in platelet po or plasmaon 02-26-2022 Thrombin time Coag (PPP) [Time] 17.0 sec 0.0-23.0 [facility] Work Phone: Whole blood hemoglobin A1c/t otal hemoglobin ratio (mass fraction)on 02-26-2022 HbA1c (Bld) [Mass fraction] % 3.8-5.6 [facility] Work Phone: Comment on above: Normal < 5.7 % Predi abetic 5.7 - 6.4 % Diabetic >or= 6.5 % Please note range changes. INR in Blood by Coagulation assayon 02-25-2022 INR Coag (Bld) [Relative time] 1.1 {INR} [facility] Work Phone: Laboratory - Coagulationon 0 02-25-2022 aPTT Coag (Bld) [Time] 27.7 s 24.1-36.2 [facility] Work Phone: PT Coag (PPP) [Time] 14.1 s 11.7-14.9 [facility] Work Phone: No Panel Informationon 02-25 Fibrinogen 320 mg/dl 203-444 [facility] Work Phone: Kleihauer-Betke Hemoglobin (L Positive [facility] Work Phone: Comment on above: Kleihauer Betke Stud y Reference: Negative POSITIVE AB* Feto-maternal hemorrhage ( RBCs): 127.5 mL. TESTING PERFORMED AT [facility]. ORIGINAL REPORT ON FILE IN LAB CONTAINS ADDITIONAL TEST SITE INFORMATION. ____ Laboratory - Chemistry and C hemistry - challengeon 02-22-2022 Glucose Ql (U) Negative [facility] Work Phone: Laboratory - Urinalysison Protein Ql (U) Negative [facility] Work Phone: Absolute lymphocyte counton 02-18-2022 Lymphocytes Auto (Unsp spec) [#/Vol] 1.57 10*3/uL 0.83-4.51 [facility] Work Phone: Basophil percentageon 2021 Basophils/100 WBC (Bld) 0.4 % 0-1 [facility] Work Phone: Eosinophils/100 WBC (Bld) 0.6 % 0-5 [facility] Work Phone: Neutrophils (Bld) [#/Vol] 4.9 10*3/uL 2.0-7.7 [facility] Work Phone: Neutrophils/100 WBC (Bld) 69.7 % 47-70 [facility] Work Phone: WBC (Bld) [#/Vol] 7.1 10*3/uL 4.4-11.0 [facility] Work Phone: Blood erythrocytes count (nu mber/volume)on 02-18-2022 RBC (Bld) [#/Vol] 3.42 10*6/uL 4.2-5.4 [facility] Work [facility]: Blood hemoglobin measurement (mass/volume)on 02-18-2022 Hemoglobin (Bld) [Mass/Vol] 10.7 g/dL 12.0-15.0 [facility] Work Phone: Blood lymphocytes/100 leukoc yteson 02-18-2022 Lymphocytes/100 WBC (Bld) 22.2 % 19-41 [facility] Work Phone: Blood monocytes/100 leukocyt eson 02-18-2022 Monocytes/100 WBC (Bld) 6.4 % 0-10 [facility] Work Phone: Blood platelet mean volumeon 02-18-2022 Platelet mean volume (Bld) [Entitic vol] 11.5 fL 6.2-12.0 [facility] Work Phone: Determination of erythrocyte mean corpuscular volume (MCV)on 02-18-2022 MCV (RBC) [Entitic vol] 93.6 fL 81-99 [facility] Work Phone: Hematocrit Auto (Bld) [Volum e fraction]on 02-18-2022 Hematocrit (Bld) [Volume fraction] 32.0 % 37-47 [facility] Work Phone: Laboratory - Hematology and Cell countson 02-18-2022 Erythrocyte distribution width (RBC) [Entitic vol] 47.8 fL 35.1-43.9 [facility] Work Phone: Erythrocyte distribution width (RBC) [Ratio] 14.5 % 11.6-14.6 [facility] Work Phone: Immature granulocytes/100 WBC (Bld) 0.700 % 0.0-0.9 [facility] Work Phone: Comment on above: IG% - Immature Granu locytes (promyelocytes, myelocytes and metamyelocytes) > 1% indicates that a LEFT SHIFT is Present. MCH (RBC) [Entitic mass] 31.3 pg 27.0-32.0 [facility] Work Phone: Nucleated RBC/100 WBC (Bld) [Ratio] 0 % 0-5 [facility] Work Phone: MCHC Auto (RBC) [Mass/Vol]on 02-18-2022 MCHC (RBC) [Mass/Vol] 33.4 g/dL 32-36 [facility] Work Phone: Platelets bldon 02-18-2022 Platelets (Bld) [#/Vol] 166 10*3/uL 150-450 [facility] Work Phone: Laboratory - Chemistry and C hemistry - challengeon 02-15-2022 Glucose Ql (U) Negative [facility] Work Phone: Laboratory - Urinalysison Protein Ql (U) Negative [facility] Work Phone: Laboratory - Chemistry and C hemistry - challengeon 02-01-2022 Glucose Ql (U) Negative [facility] Work Phone: Laboratory - Urinalysison Protein Ql (U) Negative [facility] Work Phone: Laboratory - Chemistry and C hemistry - challengeon 01-18-2022 Glucose Ql (U) Negative [facility] Work Phone: Laboratory - Urinalysison Protein Ql (U) Negative [facility] Work Phone: Laboratory - Microbiology an d Antimicrobial susceptibilityon 01-13-2022 SARS-CoV-2 (COVID-19) RNA MAE+probe Ql (Unsp spec) Detected [facility] Work Phone: No Panel Informationon 01-13 Influenza Types A,B Rapid (Clinic) Not detected [facility] Work Phone: Laboratory - Microbiology an d Antimicrobial susceptibilityon 01-06-2022 SARS-CoV-2 (COVID-19) RNA MAE+probe Ql (Unsp spec) Not detected [facility] Work Phone: No Panel Informationon 01-06 POC Nasal Swab Influenza A,B Not detected [facility] Work Phone: POC Nasal Swab RSV Not detected [facility] Work Phone: Basophil percentageon 2021 WBC (Bld) [#/Vol] 7.7 10*3/uL 4.4-11.0 [facility] Work Phone: Blood erythrocytes count (nu mber/volume)on 12-07-2021 RBC (Bld) [#/Vol] 3.23 10*6/uL 4.2-5.4 [facility] Work Phone: Blood hemoglobin measurement (mass/volume)on 12-07-2021 Hemoglobin (Bld) [Mass/Vol] 10.3 g/dL 12.0-15.0 [facility] Work Phone: Blood platelet mean volumeon 12-07-2021 Platelet mean volume (Bld) [Entitic vol] 11.4 fL 6.2-12.0 [facility] Work Phone: Determination of erythrocyte mean corpuscular volume (MCV)on 12-07-2021 MCV (RBC) [Entitic vol] 94.7 fL 81-99 [facility] Work Phone: Gestational diabetes screen 1-hour screen with 50g oral glucose loadon 12-07-2021 Glucose 1 Hr post 50 g glucose PO [Mass/Vol] 145 mg/dL 70-140 [facility] Work Phone: Hematocrit Auto (Bld) [Volum e fraction]on 12-07-2021 Hematocrit (Bld) [Volume fraction] 30.6 % 37-47 [facility] Work Phone: Laboratory - Hematology and Cell countson 12-07-2021 Erythrocyte distribution width (RBC) [Entitic vol] 42.0 fL 35.1-43.9 [facility] Work Phone: Erythrocyte distribution width (RBC) [Ratio] 12.1 % 11.6-14.6 [facility] Work Phone: MCH (RBC) [Entitic mass] 31.9 pg 27.0-32.0 [facility] Work Phone: MCHC Auto (RBC) [Mass/Vol]on 12-07-2021 MCHC (RBC) [Mass/Vol] 33.7 g/dL 32-36 [facility] Work Phone: Platelets bldon 12-07-2021 Platelets (Bld) [#/Vol] 240 10*3/uL 150-450 [facility] Work Phone: Laboratory - Hematology and Cell countson 11-27-2021 Hematocrit (Bld) [Volume fraction] 30.6 % [facility] Work Phone: MCV (RBC) [Entitic vol] 94.7 fL [facility] Work Phone: No Panel Informationon 11-27 Platelet Count (Clinic) 240 g/gL [facility] Work Phone: Iron measurement (mass/mass) on 09-07-2021 Iron (Unsp spec) [Mass/Mass] 47 ug/dL 50-170 [facility] Work Phone: No Panel Informationon 09-07 Total Iron Binding Capacity 342 ug/dL 250-450 [facility] Work Phone: Serum or plasma ferritin lakshmi surement (mass/volume)on 09-07-2021 Ferritin [Mass/Vol] 19 ng/mL 8-252 [facility] Work Phone: Basophil percentageon 2021 Chloride [Moles/Vol] 102 mmol/L 98-[address] [facility] [facility] Work Phone: Glucose [Mass/Vol] 78 mg/dL 74-106 [facility] Work Phone: Potassium [Moles/Vol] 3.6 mmol/L 3.5-5.1 [facility] Work Phone: Sodium [Moles/Vol] 135 mmol/L 136-145 [place] [facility] Work Phone: Laboratory - Chemistry and C hemistry - challengeon 08-22-2021 CO2 [Moles/Vol] 27.0 mmol/L 21.0-32.0 [facility] Work Phone: Urea nitrogen/Creatinine [Mass ratio] 18.7 mg/mg 10-20 [facility] Work Phone: No Panel Informationon 08-22 Estimated GFR (MDRD) Amer 127 mL/min >60 [facility] Work Phone: Comment on above: GFR Calc Estimated GFR (MDRD) Non-Af Amer 105 mL/min >60 [facility] Work Phone: Comment on above: Non- GFR Calc Serum or plasma calcium rachel urement (mass/volume)on 08-22-2021 Calcium [Mass/Vol] 8.9 mg/dL 8.5-10.1 [facility] Work Phone: Serum or plasma creatinine m easurement (mass/volume)on 08-22-2021 Creatinine [Mass/Vol] 0.70 mg/dL 0.55-1.02 [facility] Work Phone: Comment on above: The validity of the calculated GFR & GFRAA in patients over 70 years has not been determined. Clinical correlation is essential. Serum or plasma urea nitroge n measurement (mass/volume)on 08-22-2021 Urea nitrogen [Mass/Vol] 13 mg/dL 7-18 [facility] Work Phone: Thin prep Papanicolaou smear with manual screeningon 08-22-2021 Thin prep Papanicolaou smear with manual screening 6 5-15 [facility] Work Phone: Basophil percentageon 2021 Chloride [Moles/Vol] 104 mmol/L 98-107 [facility] Work Phone: Glucose [Mass/Vol] 87 mg/dL 74-106 [facility] Work Phone: Potassium [Moles/Vol] 3.7 mmol/L 3.5-5.1 [facility] Work Phone: Sodium [Moles/Vol] 136 mmol/L 136-145 [facility] Work Phone: Basophil percentage 10-25 SEEN /hpf [facility] Work Phone: Bilirubin Test strip Ql (U)o n 08-20-2021 Bilirubin Ql (U) Negative Negative [facility] Work Phone: Culture, urineon 08-20-2021 Bacteria identified Cx Nom (U) Positive [facility] Work Phone: Ketones Test strip Ql (U)on 08-20-2021 Ketones Ql (U) 50 mg/dl Negative [facility] Work Phone: Laboratory - Chemistry and C hemistry - challengeon 08-20-2021 CO2 [Moles/Vol] 27.0 mmol/L 21.0-32.0 [facility] Work Phone: Urea nitrogen/Creatinine [Mass ratio] 16.4 mg/mg 10-20 [facility] Work Phone: Mucus LM Ql (Urine sed)on Mucus Ql (Urine sed) 0 SEEN /hpf [facility] Work Phone: Nitrite Test strip Ql (U)on 08-20-2021 Nitrite Ql (U) Negative Negative [facility] Work Phone: No Panel Informationon 08-20 Estimated Creatinine Clearance Calc 85.03 ml/min [facility] Work Phone: Estimated GFR (MDRD) Amer 119 mL/min >60 [facility] Work Phone: Comment on above: GFR Calc Estimated GFR (MDRD) Non-Af Amer 99 mL/min >60 [facility] Work Phone: Comment on above: Non- GFR Calc Protein Test strip Ql (U)on 08-20-2021 Protein Ql (U) 15 mg/dl Negative [facility] Work Phone: Serum or plasma calcium rachel urement (mass/volume)on 08-20-2021 Calcium [Mass/Vol] 9.6 mg/dL 8.5-10.1 [facility] Work Phone: Serum or plasma creatinine m easurement (mass/volume)on 08-20-2021 Creatinine [Mass/Vol] 0.73 mg/dL 0.55-1.02 [facility] Work Phone: Comment on above: The validity of the calculated GFR & GFRAA in patients over 70 years has not been determined. Clinical correlation is essential. Serum or plasma urea nitroge n measurement (mass/volume)on 08-20-2021 Urea nitrogen [Mass/Vol] 12 mg/dL 7-18 [facility] Work Phone: Squamous epithelial cells de tection in urine sediment by light microscopyon 08-20-2021 Epithelial cells.squamous LM Ql (Urine sed) 5-10 SEEN /hpf [facility] Work Phone: Thin prep Papanicolaou smear with manual screeningon 08-20-2021 Thin prep Papanicolaou smear with manual screening 5 5-15 [facility] Work Phone: Urine blood detectionon 07-23 RBC Ql (U) Negative Negative [facility] Work Phone: RBC Ql (U) 0 SEEN /hpf [facility] Work Phone: Urine clarityon 08-20-2021 Clarity (U) Sl. Cloudy Clear [facility] Work Phone: Urine color determinationon 08-20-2021 Color (U) Yellow Yellow [facility] Work Phone: Urine glucose detectionon Glucose Ql (U) Normal mg/dl Normal [facility] Work Phone: Urine leukocyte esterase det ection by dipstickon 08-20-2021 Leukocyte esterase Test strip Ql (U) 100 /ul Negative [facility] Work Phone: Urine pHon 08-20-2021 pH (U) 6.5 [pH] [facility] Work Phone: Urine sediment bacteria coun t by microscopy (number/high power field)on 08-20-2021 Bacteria LM.HPF (Urine sed) [#/Area] 3 /[HPF] None Seen [facility] Work Phone: Urine specific gravity measu rementon 08-20-2021 Specific gravity (U) [Rel density] 1.020 [facility] Work Phone: Urobilinogen Auto test strip Ql (U)on 08-20-2021 Urobilinogen Ql (U) Normal mg/dl Normal [facility] Work Phone: No Panel Information Group B Streptococcus Culture Group B Beta Streptococcus is not isolated. [facility] Work Phone: Vital Signs Date Time Vital Sign Value Performing Clinician Faci lity 01-27-2025 12:35-0400 Body temperature 98.4 [degF] Alejandra [employer] Work Phone: [facility] [employer] 01-27-2025 12:35-0400 Diastolic blood pressure 66 mm[Hg] [employer]jandra [employer] Work Phone: [facility] [employer] 01-27-2025 12:35-0400 Heart rate 77 /min [employer] Work Phone: [facility] [employer] 01-27-2025 12:35-0400 Respiratory rate 16 /min [employer] Work Phone: [facility] [employer] 01-27-2025 12:35-0400 SaO2% (BldA) [Mass fraction] 100 % Alejandra [employer] Work Phone: [facility] [employer] 01-27-2025 12:35-0400 Systolic blood pressure 97 mm[Hg] Alejandra [employer] Work Phone: [employer] 01-27-2025 03:17-0400 Body height 157.5 cm Alejandra [employer] Work Phone: [facility] [employer] 01-27-2025 03:17-0400 Body mass index (BMI) [Ratio] 24.69 kg/m2 [employer] Phone: [facility] [employer] 01-27-2025 03:17-0400 Body weight 61.24 kg Alejandra Tena DO Work Phone: [facility] [employer] 06-17-2023 18:00-0500 Body temperature 98.2 [degF] No Primary Care Physician [facility] 06-17-2023 18:00-0500 Diastolic blood pressure 60 mm[Hg] No Primary Care Physician [facility] 06-17-2023 18:00-0500 Heart rate 65 /min No Primary Care Physician [facility] 06-17-2023 18:00-0500 Respiratory rate 18 /min No Primary Care Physician [facility] 06-17-2023 18:00-0500 SaO2% (BldA) [Mass fraction] 97 % No Primary Care Physician [facility] 06-17-2023 18:00-0500 Systolic blood pressure 101 mm[Hg] No Primary Care Physician [facility] 06-17-2023 13:35-0500 Body height 154.94 cm No Primary Care Physician [facility] 06-17-2023 13:35-0500 Body mass index (BMI) [Ratio] 30.2 kg/m2 No Primary Care Physician [facility] 06-17-2023 13:35-0500 Body weight 72.5 kg No Primary Care Physician [facility] 05-26-2023 13:40-0500 Body mass index (BMI) [Ratio] 29.7 kg/m2 No Primary Care Physician [facility] 05-26-2023 13:40-0500 Body weight 71.27 kg No Primary Care Physician [facility] 05-26-2023 13:40-0500 Diastolic blood pressure 82 mm[Hg] No Primary Care Physician [facility] 05-26-2023 13:40-0500 Systolic blood pressure 120 mm[Hg] No Primary Care Physician [facility] 04-17-2023 11:46-0400 Body height 154.94 cm No Primary Care Physician [facility] 04-17-2023 11:38-0400 Body mass index (BMI) [Ratio] 29.2 kg/m2 No Primary Care Physician [facility] 04-17-2023 11:38-0400 Body weight 70.36 kg No Primary Care Physician [facility] 04-17-2023 11:38-0400 Diastolic blood pressure 72 mm[Hg] No Primary Care Physician [facility] 04-17-2023 11:38-0400 Systolic blood pressure 109 mm[Hg] No Primary Care Physician [facility] 01-23-2023 09:55-0400 Body height 154.94 cm No Primary Care Physician [facility] 01-23-2023 09:54-0400 Diastolic blood pressure 73 mm[Hg] No Primary Care Physician [facility] 01-23-2023 09:54-0400 Systolic blood pressure 114 mm[Hg] No Primary Care Physician [facility] 10-17-2022 09:05-0400 Body height 154.94 cm No Primary Care Physician [facility] 10-17-2022 09:05-0400 Body temperature 98.5 [degF] No Primary Care Physician [facility] 10-17-2022 09:05-0400 Diastolic blood pressure 68 mm[Hg] No Primary Care Physician [facility] 10-17-2022 09:05-0400 Heart rate 83 /min No Primary Care Physician [facility] 10-17-2022 09:05-0400 SaO2% (BldA) [Mass fraction] 95 % No Primary Care Physician [facility] 10-17-2022 09:05-0400 Systolic blood pressure 98 mm[Hg] No Primary Care Physician [facility] 09-09-2022 09:53-0500 Body temperature 97.6 [degF] No Primary Care Physician [facility] 09-09-2022 09:53-0500 Diastolic blood pressure 72 mm[Hg] No Primary Care Physician [facility] 09-09-2022 09:53-0500 Heart rate 78 /min No Primary Care Physician [facility] 09-09-2022 09:53-0500 Respiratory rate 16 /min No Primary Care Physician [facility] 09-09-2022 09:53-0500 SaO2% (BldA) [Mass fraction] 98 % No Primary Care Physician [facility] 09-09-2022 09:53-0500 Systolic blood pressure 102 mm[Hg] No Primary Care Physician [facility] 08-02-2022 15:45-0500 Body mass index (BMI) [Ratio] 28.9 kg/m2 No Primary Care Physician [facility] 08-02-2022 15:45-0500 Body weight 69.39 kg No Primary Care Physician [facility] 08-02-2022 15:45-0500 Diastolic blood pressure 78 mm[Hg] No Primary Care Physician [facility] 08-02-2022 15:45-0500 Systolic blood pressure 118 mm[Hg] No Primary Care Physician [facility] 05-13-2022 09:26-0400 Body height 154.94 cm No Primary Care Physician [facility] Work Phone: 05-13-2022 09:26-0400 Body mass index (BMI) [Ratio] 27.8 kg/m2 No Primary Care Physician [facility] Work Phone: 05-13-2022 09:26-0400 Body temperature 97.6 [degF] No Primary Care Physician [facility] Work Phone: 05-13-2022 09:26-0400 Body weight 66.67 kg No Primary Care Physician [facility] Work Phone: 05-13-2022 09:26-0400 Diastolic blood pressure 71 mm[Hg] No Primary Care Physician [facility] Work Phone: 05-13-2022 09:26-0400 Heart rate 86 /min No Primary Care Physician [facility] Work Phone: 05-13-2022 09:26-0400 Respiratory rate 16 /min No Primary Care Physician [facility] Work Phone: 05-13-2022 09:26-0400 SaO2% (BldA) [Mass fraction] 94 % No Primary Care Physician [facility] Work Phone: 05-13-2022 09:26-0400 Systolic blood pressure 108 mm[Hg] No Primary Care Physician [facility] Work Phone: 04-15-2022 15:52-0400 Body height 154.94 cm No Primary Care Physician [facility] Work Phone: 04-15-2022 15:52-0400 Body mass index (BMI) [Ratio] 27.4 kg/m2 No Primary Care Physician [facility] Work Phone: 04-15-2022 15:52-0400 Body weight 68.03 kg No Primary Care Physician [facility] Work Phone: 04-15-2022 15:52-0400 Diastolic blood pressure 75 mm[Hg] No Primary Care Physician [facility] Work Phone: 04-15-2022 15:52-0400 Systolic blood pressure 119 mm[Hg] No Primary Care Physician [facility] Work Phone: 03-12-2022 11:54-0400 Body mass index (BMI) [Ratio] 27.4 kg/m2 No Primary Care Physician [facility] Work Phone: 03-12-2022 11:54-0400 Body weight 68.03 kg No Primary Care Physician [facility] Work Phone: 03-12-2022 11:54-0400 Diastolic blood pressure 64 mm[Hg] No Primary Care Physician [facility] Work Phone: 03-12-2022 11:54-0400 Systolic blood pressure 102 mm[Hg] No Primary Care Physician [facility] Work Phone: 02-26-2022 16:45-0400 Body temperature 97.8 [degF] No Primary Care Physician [facility] Work Phone: 02-26-2022 16:45-0400 Diastolic blood pressure 58 mm[Hg] No Primary Care Physician [facility] Work Phone: 02-26-2022 16:45-0400 Heart rate 81 /min No Primary Care Physician [facility] Work Phone: 02-26-2022 16:45-0400 Respiratory rate 16 /min No Primary Care Physician [facility] Work Phone: 02-26-2022 16:45-0400 SaO2% (BldA) [Mass fraction] 98 % No Primary Care Physician [facility] Work Phone: 02-26-2022 16:45-0400 Systolic blood pressure 95 mm[Hg] No Primary Care Physician [facility] Work Phone: 02-25-2022 10:35-0400 Body height 154.94 cm No Primary Care Physician [facility] Work Phone: 02-25-2022 10:35-0400 Body mass index (BMI) [Ratio] 30.2 kg/m2 No Primary Care Physician [facility] Work Phone: 02-25-2022 10:35-0400 Body weight 72.57 kg No Primary Care Physician [facility] Work Phone: 02-22-2022 13:49-0400 Body height 154.94 cm No Primary Care Physician [facility] Work Phone: 02-22-2022 13:49-0400 Body mass index (BMI) [Ratio] 30.2 kg/m2 No Primary Care Physician [facility] Work Phone: 02-22-2022 13:49-0400 Body weight 72.63 kg No Primary Care Physician [facility] Work Phone: 02-22-2022 13:49-0400 Diastolic blood pressure 60 mm[Hg] No Primary Care Physician [facility] Work Phone: 02-22-2022 13:49-0400 Systolic blood pressure 100 mm[Hg] No Primary Care Physician [facility] Work Phone: 02-15-2022 14:07-0400 Body mass index (BMI) [Ratio] 30.2 kg/m2 No Primary Care Physician [facility] Work Phone: 02-15-2022 14:07-0400 Body weight 72.63 kg No Primary Care Physician [facility] Work Phone: 02-15-2022 14:07-0400 Diastolic blood pressure 76 mm[Hg] No Primary Care Physician [facility] Work Phone: 02-15-2022 14:07-0400 Systolic blood pressure 118 mm[Hg] No Primary Care Physician [facility] Work Phone: 02-01-2022 14:03-0400 Body mass index (BMI) [Ratio] 30.2 kg/m2 No Primary Care Physician [facility] Work Phone: 02-01-2022 14:03-0400 Body weight 72.57 kg No Primary Care Physician [facility] Work Phone: 02-01-2022 14:03-0400 Diastolic blood pressure 78 mm[Hg] No Primary Care Physician [facility] Work Phone: 02-01-2022 14:03-0400 Systolic blood pressure 128 mm[Hg] No Primary Care Physician [facility] Work Phone: 01-18-2022 13:58-0400 Body mass index (BMI) [Ratio] 29.7 kg/m2 No Primary Care Physician [facility] Work Phone: 01-18-2022 13:58-0400 Body weight 71.32 kg No Primary Care Physician [facility] Work Phone: 01-18-2022 13:58-0400 Diastolic blood pressure 78 mm[Hg] No Primary Care Physician [facility] Work Phone: 01-18-2022 13:58-0400 Systolic blood pressure 108 mm[Hg] No Primary Care Physician [facility] Work Phone: 01-13-2022 08:15-0400 Body temperature 98.2 [degF] No Primary Care Physician [facility] Work Phone: 01-13-2022 08:15-0400 Diastolic blood pressure 74 mm[Hg] No Primary Care Physician [facility] Work Phone: 01-13-2022 08:15-0400 Heart rate 103 /min No Primary Care Physician [facility] Work Phone: 01-13-2022 08:15-0400 Respiratory rate 14 /min No Primary Care Physician [facility] Work Phone: 01-13-2022 08:15-0400 SaO2% (BldA) [Mass fraction] 97 % No Primary Care Physician [facility] Work Phone: 01-13-2022 08:15-0400 Systolic blood pressure 122 mm[Hg] No Primary Care Physician [facility] Work Phone: 01-06-2022 14:26-0400 Diastolic blood pressure 62 mm[Hg] No Primary Care Physician [facility] Work Phone: 01-06-2022 14:26-0400 Systolic blood pressure 104 mm[Hg] No Primary Care Physician [facility] Work Phone: 01-06-2022 13:05-0400 Body temperature 99.5 [degF] No Primary Care Physician [facility] Work Phone: 01-06-2022 13:05-0400 Heart rate 110 /min No Primary Care Physician [facility] Work Phone: 01-06-2022 13:05-0400 Respiratory rate 15 /min No Primary Care Physician [facility] Work Phone: 01-06-2022 13:05-0400 SaO2% (BldA) [Mass fraction] 98 % No Primary Care Physician [facility] Work Phone: 08-20-2021 17:02-0500 Body temperature 98.4 [degF] No Primary Care Physician [facility] Work Phone: 08-20-2021 17:02-0500 Diastolic blood pressure 78 mm[Hg] No Primary Care Physician [facility] Work Phone: 08-20-2021 17:02-0500 Heart rate 88 /min No Primary Care Physician [facility] Work Phone: 08-20-2021 17:02-0500 Respiratory rate 16 /min No Primary Care Physician [facility] Work Phone: 08-20-2021 17:02-0500 SaO2% (BldA) [Mass fraction] 98 % No Primary Care Physician [facility] Work Phone: 08-20-2021 17:02-0500 Systolic blood pressure 120 mm[Hg] No Primary Care Physician [facility] Work Phone: 08-20-2021 15:15-0500 Body height 154.94 cm No Primary Care Physician [facility] Work Phone: 08-20-2021 15:15-0500 Body mass index (BMI) [Ratio] 26.6 kg/m2 No Primary Care Physician [facility] Work Phone: 08-20-2021 15:15-0500 Body weight 63.9 kg No Primary Care Physician [facility] Work Phone: Encounters Encounter Date Encounter Type Care Provider Facility Start: 03-11-2025 ambulatory No Primary Car e Physician Facility:[facility] Start: 03-04-2025 ambulatory Saritha Cardona lity:[facility] Start: 03-04-2025 End: 03-04-2025 ambulatory Saritha Salgado Facility:[facility] Start: 03-04-2025 End: 03-04-2025 ambulatory Saritha Salgado Facility:[facility] Start: 03-01-2025 End: 03-01-2025 ambulatory [facility] Start: 02-22-2025 ambulatory Analia Oconnellty:[facility] Start: 02-22-2025 End: 02-22-2025 ambulatory No Primary Care Physician Facility:[facility] Start: 02-22-2025 End: 02-22-2025 ambulatory No Primary Care Physician [facility] Start: 02-21-2025 End: 02-21-2025 ambulatory [facility] Start: 02-18-2025 End: 02-18-2025 ambulatory Saritha Salgado Facility:[facility] Start: 02-17-2025 End: 02-17-2025 ambulatory ANALIA Horta [facility] Start: 02-07-2025 End: 02-07-2025 ambulatory Saritha Salgado [facility] Start: 02-07-2025 End: 02-07-2025 ambulatory Saritha Salgado Facility:[facility] Start: 02-04-2025 End: 02-04-2025 ambulatory MD NO PRIMARY CARE [facility] Start: 02-01-2025 End: 02-01-2025 ambulatory No Primary Care Physician Facility[facility] Start: 02-01-2025 End: 02-01-2025 ambulatory No Primary Care Physician Facility:[facility] Start: 01-26-2025 End: 01-27-2025 Evaluation and management of inpatient Alejandra Tena DO Work Phone: [facility] Start: 01-26-2025 End: 01-26-2025 ambulatory No Primary Care Physician Facility:[facility] Start: 01-26-2025 End: 01-26-2025 Emergency department patient visit Brian Dominguez Facility:[facility] Start: 01-25-2025 End: 01-25-2025 ambulatory NO PRIMARY CARE [facility] Start: 01-17-2025 End: 01-17-2025 ambulatory Analia Mcgregor Facility:[facility] Start: 01-17-2025 End: 01-17-2025 ambulatory Analia Mcgregor Facility:[facility] Start: 01-06-2025 End: 01-06-2025 ambulatory Analia Mcgregor [facility] Start: 12-30-2024 End: 12-30-2024 ambulatory [facility] Start: 12-08-2024 End: 12-08-2024 ambulatory Analia Mcgregor [facility] Start: 12-07-2024 End: 12-07-2024 ambulatory Albaro Jimenez Facility:[facility] Start: 11-30-2024 End: 11-30-2024 ambulatory NO PRIMARY CARE [facility] Start: 11-29-2024 End: 11-29-2024 ambulatory JAYSON BATES [facility] Start: 11-09-2024 End: 11-09-2024 ambulatory Saritha Salgado [facility] Start: 11-09-2024 End: 11-09-2024 ambulatory Saritha Salgado Facility:[facility] Start: 10-25-2024 End: 10-25-2024 ambulatory NO PRIMARY CARE [facility] Start: 10-20-2024 End: 10-20-2024 ambulatory Saritha Marcanthony Facility:[facility] Start: 10-19-2024 End: 10-19-2024 ambulatory Albaro L Tony Facility:[facility] Start: 10-06-2024 End: 10-06-2024 ambulatory Saritha Marcanthony Facility:[facility] Start: 10-05-2024 End: 10-05-2024 Subsequent hospital visit by physician Ashley Villarreal MD Work Phone: [facility] Comment on above: History of Start: 10-05-2024 End: 10-06-2024 ambulatory NO PRIMARY CARE [facility] Start: 09-27-2024 End: 09-27-2024 ambulatory NO PRIMARY CARE [facility] Start: 09-26-2024 End: 09-26-2024 Emergency department patient visit Damaso Whitfield Facility:[facility] Start: 09-15-2024 End: 09-15-2024 ambulatory Saritha Marckirstyony [facility] Start: 09-15-2024 End: 09-15-2024 ambulatory Albaro Jimenez Facility:[facility] Start: 09-08-2024 End: 09-08-2024 ambulatory Jessica Reyes [facility] Start: 08-30-2024 End: 08-30-2024 ambulatory Sarithademarcus Gundersonony [facility] Start: 08-23-2024 End: 08-23-2024 ambulatory Saritha Marcanthony [facility] Start: 08-23-2024 End: 08-23-2024 ambulatory Saritha Marcanthony Facility:[facility] Start: 08-17-2024 End: 08-17-2024 ambulatory Saritha Marcanthony Facility:[facility] Start: 08-01-2024 End: 08-01-2024 ambulatory Saritha Marcanthony Facility:[facility] Start: 07-30-2024 End: 07-30-2024 ambulatory Saritha Marcanthony Facility:[facility] Start: 07-28-2024 End: 07-28-2024 ambulatory Saritha Marcanthony Facility:[facility] Start: 07-06-2024 End: 07-06-2024 ambulatory Albaro Jimenez [facility] Start: 05-27-2024 ambulatory Saritha Salgado Faci lity:[facility] Start: 05-24-2024 End: 05-24-2024 ambulatory No Primary Care Physician Facility:[facility] Start: 05-13-2024 End: 05-13-2024 ambulatory No Primary Care Physician Facility:[facility] Start: 04-28-2024 End: 04-28-2024 ambulatory No Primary Care Physician Facility:[facility] Start: 04-16-2024 End: 04-16-2024 ambulatory Analia Mcgregor Facility:[facility] Start: 04-16-2024 ambulatory Analia Tafoyarosette Luis E Fa cility:[facility] Start: 02-23-2024 End: 02-23-2024 Subsequent hospital visit by physician Margaret TERRY Work Phone: [facility] Comment on above: Arrived Start: 06-17-2023 Non-patient / Non-visit No Primary Care Physician [facility] Start: 06-17-2023 End: 06-17-2023 Admission to same day surgery center No Primary Care Physician [facility] Start: 06-17-2023 End: 06-17-2023 ambulatory No Primary Care Physician [facility] Work Phone: Start: 06-05-2023 Registered Referred No Primary Care Physician [facility] Start: 05-26-2023 End: 05-26-2023 Patient encounter procedure No Primary Care Physician [facility] Work Phone: Start: 05-26-2023 End: 05-26-2023 Patient encounter procedure No Primary Care Physician [facility] Work Phone: Start: 05-15-2023 End: 05-15-2023 ambulatory No Primary Care Physician [facility] Work Phone: Start: 05-15-2023 End: 05-15-2023 Patient encounter procedure No Primary Care Physician [facility] Work Phone: Start: 04-28-2023 End: 04-28-2023 ambulatory No Primary Care Physician [facility] Work Phone: Start: 04-28-2023 End: 04-28-2023 Patient encounter procedure No Primary Care Physician [facility]Labor[facility] Work Phone: Start: 04-17-2023 End: 04-17-2023 Patient encounter procedure No Primary Care Physician [facility] Work Phone: Start: 03-18-2023 End: 03-18-2023 ambulatory No Primary Care Physician [facility] Work Phone: Start: 03-18-2023 End: 03-18-2023 Patient encounter procedure No Primary Care Physician [facility] Start: 03-12-2023 End: 03-12-2023 ambulatory No Primary Care Physician [facility] Work Phone: Start: 03-12-2023 End: 03-12-2023 Patient encounter procedure No Primary Care Physician [facility] Work Phone: Start: 03-05-2023 End: 03-05-2023 ambulatory No Primary Care Physician [facility] Work Phone: Start: 03-05-2023 End: 03-05-2023 Patient encounter procedure No Primary Care Physician [facility] Work Phone: Start: 03-04-2023 End: 03-04-2023 Patient encounter procedure No Primary Care Physician [facility] Work Phone: Start: 02-24-2023 End: 02-24-2023 Patient encounter procedure No Primary Care Physician [facility] Work Phone: Start: 02-19-2023 End: 02-19-2023 ambulatory No Primary Care Physician [facility] Work Phone: Start: 02-19-2023 End: 02-19-2023 Patient encounter procedure No Primary Care Physician [facility] Start: 02-13-2023 End: 02-13-2023 Patient encounter procedure No Primary Care Physician [facility] Work Phone: Start: 02-12-2023 End: 02-12-2023 ambulatory No Primary Care Physician [facility] Work Phone: Start: 02-12-2023 End: 02-12-2023 Patient encounter procedure No Primary Care Physician [facility] Work Phone: Start: 02-05-2023 End: 02-05-2023 ambulatory No Primary Care Physician [facility] Work Phone: Start: 02-05-2023 End: 02-05-2023 Patient encounter procedure No Primary Care Physician [facility] Work Phone: Start: 01-29-2023 End: 01-29-2023 ambulatory No Primary Care Physician [facility] Work Phone: Start: 01-29-2023 End: 01-29-2023 Patient encounter procedure No Primary Care Physician [facility] Work Phone: Start: 01-26-2023 End: 01-26-2023 ambulatory No Primary Care Physician [facility] Work Phone: Start: 01-26-2023 End: 01-26-2023 Patient encounter procedure No Primary Care Physician [facility] Work Phone: Start: 01-23-2023 End: 01-23-2023 ambulatory No Primary Care Physician [facility] Work Phone: Start: 01-23-2023 End: 01-23-2023 Patient encounter procedure No Primary Care Physician [facility] Work Phone: Start: 01-22-2023 End: 01-22-2023 ambulatory No Primary Care Physician [facility] Work Phone: Start: 01-22-2023 End: 01-22-2023 Patient encounter procedure No Primary Care Physician [facility] Work Phone: Start: 01-16-2023 End: 01-16-2023 ambulatory No Primary Care Physician [facility] Work Phone: Start: 01-16-2023 End: 01-16-2023 Patient encounter procedure No Primary Care Physician [facility] Work Phone: Start: 01-14-2023 End: 01-14-2023 ambulatory No Primary Care Physician [facility] Work Phone: Start: 01-14-2023 End: 01-14-2023 Patient encounter procedure No Primary Care Physician [facility]-Ultrasound, [facility] Work Phone: Start: 01-14-2023 End: 01-14-2023 ambulatory No Primary Care Physician [facility] Work Phone: Start: 01-14-2023 End: 01-14-2023 Patient encounter procedure No Primary Care Physician [facility] Work Phone: Start: 01-12-2023 End: 01-12-2023 Patient encounter procedure No Primary Care Physician [facility] Work Phone: Start: 11-14-2022 End: 11-14-2022 Patient encounter procedure No Primary Care Physician [facility] Work Phone: Start: 11-04-2022 End: 11-04-2022 ambulatory No Primary Care Physician [facility] Work Phone: Start: 11-04-2022 End: 11-04-2022 Patient encounter procedure No Primary Care Physician [facility]-Laboratory, Specimen Start: 10-31-2022 End: 10-31-2022 ambulatory No Primary Care Physician [facility] Work Phone: Start: 10-31-2022 End: 10-31-2022 Patient encounter procedure No Primary Care Physician [facility] Start: 10-17-2022 End: 10-17-2022 Patient encounter procedure No Primary Care Physician [facility] Start: 09-23-2022 End: 09-23-2022 Patient encounter procedure No Primary Care Physician [facility] Start: 09-19-2022 End: 09-19-2022 Patient encounter procedure No Primary Care Physician [facility] Start: 09-09-2022 End: 09-09-2022 Patient encounter procedure No Primary Care Physician [facility] Start: 09-09-2022 End: 09-09-2022 Patient encounter procedure No Primary Care Physician [facility] Start: 08-02-2022 End: 08-02-2022 Patient encounter procedure No Primary Care Physician [facility] Start: 05-24-2022 End: 05-24-2022 ambulatory No Primary Care Physician [facility] Work Phone: Start: 05-24-2022 End: 05-24-2022 Patient encounter procedure No Primary Care Physician [facility] Start: 05-13-2022 End: 05-13-2022 ambulatory No Primary Care Physician [facility] Work Phone: Start: 05-13-2022 End: 05-13-2022 Patient encounter procedure No Primary Care Physician [facility]-Laboratory, Specimen Start: 05-13-2022 End: 05-13-2022 Patient encounter procedure No Primary Care Physician [facility] Start: 04-30-2022 End: 04-30-2022 ambulatory No Primary Care Physician [facility] Work Phone: Start: 04-30-2022 End: 04-30-2022 Patient encounter procedure No Primary Care Physician [facility] Start: 04-15-2022 End: 04-15-2022 ambulatory No Primary Care Physician [facility] Work Phone: Start: 04-15-2022 End: 04-15-2022 Patient encounter procedure No Primary Care Physician [facility] Start: 04-10-2022 End: 04-10-2022 Patient encounter procedure No Primary Care Physician [facility] Start: 03-12-2022 End: 03-12-2022 Patient encounter procedure No [facility] Start: 02-26-2022 Non-patient / Non-visit No Primary Care Physician [facility] Start: 02-25-2022 Non-patient / Non-visit No Primary Care Physician [facility] Start: 02-25-2022 End: 02-26-2022 Evaluation and management of inpatient No Primary Care Physician [facility] Start: 02-25-2022 End: 02-25-2022 Patient encounter procedure No Primary Care Physician [facility] Start: 02-25-2022 End: 02-25-2022 Patient encounter procedure No Primary Care Physician [facility] Start: 02-22-2022 End: 02-22-2022 Patient encounter procedure No Primary Care Physician [facility] Start: 02-22-2022 End: 02-22-2022 Patient encounter procedure No Primary Care Physician [facility], Specimen Start: 02-18-2022 End: 02-18-2022 Patient encounter procedure No Primary Care Physician [facility] Start: 02-15-2022 End: 02-15-2022 Patient encounter procedure No Primary Care Physician [facility] Start: 02-11-2022 End: 02-11-2022 Patient encounter procedure No Primary Care Physician [facility] Start: 02-04-2022 End: 02-04-2022 Patient encounter procedure No Primary Care Physician [facility] Start: 02-01-2022 End: 02-01-2022 Patient encounter procedure No Primary Care Physician [facility] Start: 01-29-2022 End: 01-29-2022 Patient encounter procedure No Primary Care Physician [facility] Start: 01-25-2022 End: 01-25-2022 Patient encounter procedure No Primary Care Physician [facility] Start: 01-18-2022 End: 01-18-2022 Patient encounter procedure No Primary Care Physician [facility] Start: 01-13-2022 End: 01-13-2022 Patient encounter procedure No Primary Care Physician [facility] Start: 01-06-2022 End: 01-06-2022 Patient encounter procedure No Primary Care Physician [facility] Start: 12-25-2021 End: 12-25-2021 Patient encounter procedure No Primary Care Physician [facility] Start: 12-10-2021 End: 12-10-2021 Patient encounter procedure No Primary Care Physician [facility] Start: 12-07-2021 End: 12-07-2021 Patient encounter procedure [facility] [facility] Start: 11-27-2021 Non-patient / Non-visit No Primary Care Physician [facility] Start: 11-26-2021 End: 11-26-2021 Patient encounter procedure No Primary Care Physician [facility] Start: 11-14-2021 End: 11-14-2021 Patient encounter procedure No Primary Care Physician [facility] Start: 11-06-2021 End: 11-06-2021 Patient encounter procedure No Primary Care Physician [facility] Start: 09-17-2021 End: 09-17-2021 Patient encounter procedure No Primary Care Physician [facility] Start: 09-07-2021 End: 09-07-2021 Patient encounter procedure [facility] Start: 08-22-2021 End: 08-22-2021 Patient encounter procedure No [facility] [place] [facility] Start: 08-20-2021 End: 08-20-2021 Emergency department patient visit No Primary Care Physician [facility] Procedures Date Procedure Procedure Detail Performing Clinician Start: 01-27-2025 Glucose quantitative blood xcpt reagent strip Alejandra Tena DO Work Phone: Start: 01-27-2025 Us preg uterus after 1st trimest 1/ gestation Lindsay Hare DO Work Phone: Start: 01-27-2025 Glucose quantitative blood xcpt reagent strip Alejandra Tena DO Work Phone: Start: 01-27-2025 Iadna chlamydia trachomatis amplified probe tq Lindsay Ximena Hare DO Work Phone: Start: 01-27-2025 Antibody screen ALEJANDRA VERO Comment on above: Order Comment: HOLD. Specimen is valid for 3 days - nurse to verify valid specimen Performed By: #### L [id number] #### Classroom Coordinator: RADHA VASQUEZ ([phone]) [facility] ([facility]) [address] [place] [address] Start: 01-27-2025 ABO and Rh group [Ty pe] in Blood by Confirmatory method Lindsay Hare DO Work Phone: Start: 01-27-2025 Blood typing serologic abo Lindsay Hare DO Work Phone: Start: 01-27-2025 Adult depression scr eening assessment Alejandra Tena DO Work Phone: Start: 01-27-2025 Glucose quantitative blood xcpt reagent strip Alejandra Tena DO Work Phone: Start: 01-26-2025 End: 01-27-2025 Comprehensive metabolic panel Lindsay Hare DO Work Phone: Start: 01-27-2025 Ecg routine ecg w/le ast 12 lds trcg only w/o i&r Lindsay Hare DO Work Phone: Start: 02-23-2024 Hepatitis b surf ant ibody hbsab Margaret M Duglase 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 Work Phone: Start: 06-17-2023 Laparoscopy No Primary Care Physician Start: 05-15-2023 US scan of thyroid No P rimary Care Physician Start: 01-22-2023 Transvaginal obstetr ic ultrasonography No Primary Care Physician Start: 01-14-2023 Transvaginal obstetr ic ultrasonography No Primary Care Physician Start: 04-30-2022 US scan of thyroid No P rimary Care Physician Start: 01-25-2022 Ultrasound scan for growth No Primary Care Physician Start: 08-20-2021 Urine culture No Primar y Care Physician Group B Streptococcu s Culture No Primary Care Physician H/O: section History of delivery Margaret Santillan HARRISON Work Phone: Plan of Treatment Date Care Activity Detail Author Start: 2041 Zoster Vaccines (1 of 2) Zoste r Vaccines (1 of 2) [facility] Start: 01-19-2032 DTaP/Tdap/Td Vaccine s (8 - Td or Tdap) DTaP/Tdap/Td Vaccines (8 - Td or Tdap) [facility] Start: 01-27-2026 Depression Screening Depression Scre ening [facility] Start: 03-21-2025 Influenza vaccination Influenza Vacc ine (#1) [facility] Start: 03-21-2025 RSV Immunization for Adults (1 - Risk 1-dose series) RSV Immunization for Adults (1 - Risk 1-dose series) [facility] Start: 10-25-2024 End: 10-25-2024 Professional / ancillary services management 10/25/2024 2:45 PM EDT Ancillary Procedure Visit [facility] [address] [place] [address] US FU 4 weeks [facility] Comment on above: US FU 4 weeks Start: 03-21-2024 COVID-19 (2 5 season) COVID-19 ( season) [facility] Start: 03-21-2024 COVID-19 Vaccine ( season) COVID-19 Vaccine ( season) [facility] Start: 03-21-2024 FLU (#1) FLU (#1) [facility] Start: 06-17-2023 Patient discharge [facility] Start: 06-17-2023 Ambulation without limitation [facility] Start: 06-17-2023 Medical regimen orde rs management [facility] Start: 06-17-2023 Medication education [facility] Start: 06-17-2023 Procedure discontinued [facility] Start: 06-17-2023 Taking patient vital signs [facility] Start: 06-17-2023 Vital signs measurements [facility] Start: 06-17-2023 [facility] Start: 03-21-2023 COVID-19 (2022-08 season) COVID-19 (2022- season) [facility] Start: 02-26-2022 [facility] Work Phone: Start: 02-26-2022 Application of abdom inal corset [facility] Work Phone: Start: 02-26-2022 Patient discharge [facility] Work Phone: Start: 02-26-2022 Lupus anticoagulant assay [facility] Work Phone: Start: 02-26-2022 [facility] Work Phone: Start: 02-25-2022 End: 02-26-2022 [facility] Work Phone: Start: 02-25-2022 Administration of medication [facility] Work Phone: Start: 02-25-2022 Ambulation therapy management [facility] Work Phone: Start: 02-25-2022 Application of device [facility] Work Phone: Start: 02-25-2022 Application of inter mittent pneumatic compression device [facility] Work Phone: Start: 02-25-2022 Assessment of risk o f venous thromboembolism [facility] Work Phone: Start: 02-25-2022 Catheterization of vein [facility] Work Phone: Start: 02-25-2022 Deep breathing and c oughing exercises [facility] Work Phone: Start: 02-25-2022 Exercises [facility] Work Phone: Start: 02-25-2022 Incentive spirometry [facility] Work Phone: Start: 02-25-2022 Measuring intake and output [facility] Work Phone: Start: 02-25-2022 Notification of physician [facility] Work Phone: Start: 02-25-2022 Procedure discontinued [facility] Work Phone: Start: 02-25-2022 Provision of activit y privileges [facility] Work Phone: Start: 02-25-2022 Vital signs measurements [facility] Work Phone: Start: 02-25-2022 Wound care [facility] Work Phone: Start: 02-25-2022 Application of abdom inal corset [facility] Work Phone: Start: 02-25-2022 Admission procedure [facility] Work Phone: Start: 02-25-2022 Consultation [facility] Work Phone: Start: 02-25-2022 Streptococcus agalac tiae [Presence] in Unspecified specimen by Organism specific culture [facility] Work Phone: Start: 2021 Screening for malign ant neoplasm of cervix [facility] Start: 02-17-2012 Microscopic observat ion [Identifier] in Cervix by Cyto stain Pap Smear [facility] Start: 02-17-2012 Screening for malign ant neoplasm of cervix Pap Smear [facility] Start: 2010 Hepatitis B (1 of 3 - 19+ 3-dose series) Hepatitis B (1 of 3 - 19+ 3-dose series) [facility] Start: 2009 Hepatitis C screening Hepatitis C Sc reening [facility] Start: 2007 MenB (1 of 2 - MenB 2-Dose Series Bexsero) MenB (1 of 2 - MenB 2-Dose Series Bexsero) [facility] Start: 02-17-2004 Varicella (1 of 2 - 13+ 2-dose series) Varicella (1 of 2 - 13+ 2-dose series) [facility] Start: 02-17-2004 Varicella vaccination Varicell a Vaccines (1 of 2 - 13+ 2-dose series) [facility] Start: 1998 Tetanus Diphtheria a nd Pertussis Vaccines (1 - Tdap) Tetanus Diphtheria and Pertussis Vaccines (1 - Tdap) [facility] Start: 02-17-1992 MMR (1 of 1 - Standa rd series) MMR (1 of 1 - Standard series) [facility] Start: 1991 HIV screening HIV Screening [facility] End: 01-27-2025 Bacteria identified in Urine by Culture [facility] Comment on above: STAT (Lab) for 1 Occ urrences starting 01/27/2025 until 01/27/2025 Once for 1 Occurrenc es starting 01/27/2025 until 01/27/2025 Bacteria identified in Urine by Culture Urine culture Microbiology STAT 01/27/2025 3:02 AM EDT [facility] Beta 2 glycoprotein 1 IgA Ab [Presence] in Serum [facility] Work Phone: Beta 2 glycoprotein 1 IgG Ab [Presence] in Serum [facility] Work Phone: Beta 2 glycoprotein 1 IgM Ab [Presence] in Serum [facility] Work Phone: Beta-hemolytic Strep tococcus culture [facility] Work Phone: Cardiolipin IgA Ab [Units/volume] in Serum by Immunoassay [facility] Work Phone: Cardiolipin IgG Ab [Units/volume] in Serum or Plasma [facility] Work Phone: Cardiolipin IgM Ab [Units/volume] in Serum or Plasma [facility] Work Phone: Choriogonadotropin ( test) [Presence] in Serum or Plasma [facility] Cytomegalovirus IgG antibody measurement [facility] Work Phone: Cytomegalovirus IgM antibody assay [facility] Work Phone: Group B Streptococcu s Culture Group B Streptococcus Culture [facility] Work Phone: Lupus anticoagulant neutralization platelet [Time] in Platelet poor plasma by Coagulation assay [facility] Work Phone: End: 10-05-2024 Miscellaneous Sendout: [facility] Work Phone: Comment on above: 1 Occurrences starti ng 10/05/2024 until 10/05/2024 Partial thromboplast in time ratio [facility] Work Phone: Parvovirus B19 IgG A b [Units/volume] in Serum by Immunoassay [facility] Work Phone: Parvovirus B19 IgM A b [Units/volume] in Serum by Immunoassay [facility] Work Phone: Patient Education Urinary Tract Infections in Women ED Hyperemesis Gravidarum [facility] Work Phone: Patient referral [facility] Work Phone: Streptococcus agalac tiae [Presence] in Unspecified specimen by Organism specific culture [facility] Work Phone: End: 01-27-2025 Streptococcus agalactiae DNA [Presence] in Unspecified specimen by MAE with probe detection Group B Strep Screen PCR Microbiology STAT STAT (Lab) for 1 Occurrences starting 01/27/2025 until 01/27/2025 [facility] Work Phone: Comment on above: STAT (Lab) for 1 Occ urrences starting 01/27/2025 until 01/27/2025 Streptococcus agalac tiae DNA [Presence] in Unspecified specimen by MAE with probe detection Group B Strep Screen PCR Microbiology STAT 01/27/2025 2:10 AM EDT [facility] [employer] Thrombin time [facility] Work Phone: Toxoplasma gondii Ig G Ab [Units/volume] in Serum [facility] Work Phone: Toxoplasma gondii Ig M Ab [Units/volume] in Serum [facility] Work Phone: End: 01-27-2025 Urine Hold Cup Urine Hold Cup Lab Timed Once for 1 Occurrences starting 01/27/2025 until 01/27/2025 [facility] Comment on above: Once for 1 Occurrenc es starting 01/27/2025 until 01/27/2025 US Thyroid gland [facility] Work Phone: Immunizations Immunization Date Immunization Notes Care Provider Fa cili 05-14-2024 influenza virus vaccine, unspecified formulation Alejandra Tena DO Work Phone: [facility] 05-13-2023 influenza, injectabl e, quadrivalent, preservative free No Primary Care Physician [facility] 06-20-2022 influenza, injectabl e, quadrivalent, preservative free No Primary Care Physician [facility] 06-20-2022 influenza, seasonal, injectable No Primary Care Physician [facility] 01-18-2022 tetanus toxoid, redu itzel diphtheria toxoid, and acellular pertussis vaccine, adsorbed No Primary Care Physician [facility] 04-25-2021 influenza, injectabl e, quadrivalent, preservative free No Primary Care Physician [facility] 04-25-2021 influenza, seasonal, injectable No Primary Care Physician [facility] 04-05-2021 Covid (Moderna) No Primary C are Physician [facility] 03-08-2021 Covid (Moderna) No Primary C are Physician [facility] 04-18-2020 influenza, injectabl e, quadrivalent, preservative free No Primary Care Physician [facility] 04-18-2020 influenza, seasonal, injectable No Primary Care Physician [facility] 06-16-2019 influenza, injectabl e, quadrivalent, preservative free No Primary Care Physician [facility] 06-16-2019 influenza, seasonal, injectable No Primary Care Physician [facility] 04-17-2018 influenza, injectabl e, quadrivalent, preservative free No Primary Care Physician [facility] 04-17-2018 influenza, seasonal, injectable No Primary Care Physician [facility] 05-14-2017 influenza, injectabl e, quadrivalent, preservative free No Primary Care Physician [facility] 05-14-2017 influenza, seasonal, injectable No Primary Care Physician [facility] 05-08-2016 influenza, injectabl e, quadrivalent, preservative free No Primary Care Physician [facility] 05-08-2016 influenza, seasonal, injectable No Primary Care Physician [facility] 06-01-2015 influenza, injectabl e, quadrivalent, preservative free No Primary Care Physician [facility] 06-01-2015 influenza, seasonal, injectable No Primary Care Physician [facility] 10-03-2014 tetanus toxoid, redu itzel diphtheria toxoid, and acellular pertussis vaccine, adsorbed No Primary Care Physician [facility] 09-21-2014 influenza, injectabl e, quadrivalent, preservative free No Primary Care Physician [facility] 09-21-2014 influenza, seasonal, injectable No Primary Care Physician [facility] 05-24-2005 hepatitis B vaccine, pediatric or pediatric/adolescent dosage No Primary Care Physician [facility] Payers Date Payer Category Payer Medicaid HMO [employer] [id number] 2024 Commercial Managed C [facility] [employer] [id number] 2024 Unknown [id number] 2024 Medicaid [id number] 2024 Unknown [id number] 2024 Unknown [id number]. 1.13.234.2. [id number] 2023 Self-pay [id number] 1991 Unknown [id number] 2.16.840.1.328376.3.579.2 1991 Unknown [id number] 2.16.840.1.538604.3.579.2 1991 Unknown [id number] 2.16.840.1.549359.3.579.2 1991 Unknown [id number] 2.16.840.1.478477.3.579.2 1991 Unknown [id number] 2.16.840.1.963075.3.579. 1991 Unknown [id number] 2.16.840.1.146354.3.579.2 1991 Unknown [id number] 2.16.840.1.950887.3.579.2 1991 Unknown [id number] 2.16.840.1.914452.3.579.2 1991 Unknown [id number] 2.16.840.1.434026.3.579.2 1991 Unknown [id number] 2.16.840.1.888054.3.579.2 1991 Unknown [id number] 2.16840.1.856370.3.579.2 1991 Unknown [id number] 2.16.840.1.141613.3.579.2 47 Private Health Insurance [id number] Unknown [id number] Unknown [id number] Unknown [id number] Unknown [id number] 2.16.840.1.708014.3.579.2. 462 Unknown [id number] 2.16.840.1.507484.3.579.2. 462 Unknown [id number] 2.16.840.1.251480.3.579.2. 462 Unknown [id number] 2.16.840.1.887695.3.579.2. 462 Unknown [id number] 2.16.840.1.654062.3.579.2. 462 Unknown [id number] 2.16.840.1.880614.3.579.2. 462 Unknown [id number] 2.16.840.1.792769.3.579.2. 462 Unknown [id number] 2.16.840.1.102124.3.579.2. 462 Unknown [id number] 2.840.1.902694.3.579.2. 462 Unknown [id number] 2.16.840.1.468547.3.579.2. 462 Unknown [id number] 2.16.840.1.500107.3.579.2. 462 Unknown [id number] 2.16.840.1.892745.3.579.2. 462 Unknown [id number] 2.16.840.1.923754.3.579.2. 462 Unknown [id number] 2.16.840.1.425069.3.579.2. 462 Unknown [id number] 2.16.840.1.250873.3.579.2. 462 Unknown [id number] 2.16.840.1.493292.3.579.2. 462 Unknown [id number] 2.16.840.1.983858.3.579.2. 462 Unknown [id number] 2.16.840.1.263730.3.579.2. 462 Unknown [id number] 2.16.840.1.587143.3.579.2. 462 Unknown [id number] 2.16.840.1.560613.3.579.2. 462 Unknown [id number] 2.16.840.1.148758.3.579.2. 462 Unknown [id number] 2.16.840.1.259794.3.579.2. 462 Unknown [id number] 2.16.840.1.342035.3.579.2. 462 Unknown [id number] 2.16.840.1.656241.3.579.2. 462 Unknown [id number] 2.16.840.1.288669.3.579.2. 462 Unknown [id number] 2.16.840.1.383216.3.579.2. 462 Unknown [id number] 2.16840.1.313792.3.579.2. 462 Unknown [id number] 2.16.840.1.790648.3.579.2. 462 Unknown [id number] 2.16.840.1.509220.3.579.2. 462 Unknown [id number] 2.16.840.1.228112.3.579.2. 462 Unknown [id number] 2.16.840.1.678619.3.579.2. 462 Unknown [id number] 2.16840.1.474462.3.579.2. 462 Unknown [id number] 2.16.840.1.084283.3.579.2. 462 Unknown [id number] 2.16.840.1.521534.3.579.2. 462 Unknown [id number] 2.16.840.1.061641.3.579.2. 462 Unknown [id number] 2.16.840.1.349821.3.579.2. 462 Unknown [id number] 2.16.840.1.703887.3.579.2. 462 Unknown [id number] 2.16.840.1.716161.3.579.2. 462 Unknown [id number] 2.16.840.1.607687.3.579.2. 462 Unknown [id number] 2.16.840.1.549798.3.579.2. 462 Unknown [id number] 2.16.840.1.355885.3.579.2. 462 Unknown [id number] 2.16.840.1.288565.3.579.2. 462 Unknown [id number] 2.16.840.1.029948.3.579.2. 462 Unknown [id number] 2.16.840.1.361767.3.579.2. 462 Unknown [id number] 2.16.840.1.582129.3.579.2. 462 Unknown [id number] 2.840.1.648823.3.579.2. 462 Social History Date Type Detail Facility [facility] Work Phone: Start: 12-10-2021 End: 05-26-2023 Tobacco smoking status OKIS Unknown if ever smoked [facility] Start: 12-05-2019 None [facility] Start: 12-11-2020 Non-smoker [facility] Start: 1990 Sex Assigned At Female [facility] Start: 05-08-2022 End: 01-27-2025 Tobacco smoking status NHIS Never smoked tobacco [facility] Start: 05-08-2022 End: 01-27-2025 Tobacco use and exposure Smokeless tobacco non-user [facility] Start: 05-08-2022 End: 09-27-2024 Alcoholic beverage intake Lifetime non-drinker (finding) [facility] Start: 05-08-2022 End: 01-27-2025 History of Social function [facility] Start: 05-08-2022 End: 01-27-2025 Tobacco use panel [facility] Start: 1990 Sex assigned at Not on file A [facility] Start: 07-25-2024 [facility] Start: 01-27-2025 Alcoholic beverage intake Ex-d john (finding) [employer] Has the electric, [employer] s, oil, or water company threatened to shut off services in your home in past 12Mo No [employer] (I/We) worried wheth er (my/our) food would run out before (I/we) got money to buy more. Never true [employer] In the past 12 month s, has lack of transportation kept you from medical appointments or from getting medications? No [employer] Start: 08-08-2024 Sex Female (finding) [facility] NEGATED: Highlighted row [facility] NEGATED: Highlighted rowStart: NINF History of tobacco use Passive smoker [facility] Goals Date Patient Goal Desired Activity /State Functional Status Date Assessment Result Facility 01-27-2025 Patient Health Quest ionnaire 2 item (PHQ-2) [Reported] [facility] 02-25-2022 Functional status Activity Abili ty Post Op [facility] Work Phone: [facility] Mental Status Date Assessment Result Facility 06-17-2023 Cognitive function Level Of Cons ciousness Awake;Drowsy [facility] Work Phone: 06-17-2023 Cognitive function Patient Orien tation Person;Place;Time [facility] Work Phone: Clinical Notes 07-24-2021 to 01-27-2025 Brandi Emery RN - 01/27/2025 1:00 PM Terrie Emery RN - 01/27/2025 1:00 PM Joana Pham MD - 01/27/2025 12:49 PM EDTDischarge Instructions Note Date & Type Note Facility 01-27-2025 Nurse Note 1300 iron infusion complete, per DR. Stringer, may be discharged to home ., iv heplock removed, clean dry and intact., discharge papers given, no acute distress this afternoon, blood sugars trending normal and pt is asymptomatic at present time, feels reassured to go home., papers signed, ambulatory home [facility] 01-27-2025 Nurse Note 1300 iron infusion complete, per DR. Stringer, may be discharged to home ., iv heplock removed, clean dry and intact., discharge papers given, no acute distress this afternoon, blood sugars trending normal and pt is asymptomatic at present time, feels reassured to go home., papers signed, ambulatory home documented in this encounter [facility] 01-27-2025 Note Department of Obstet rics and Gynecology [facility] Discharge Summary Admission on 01/26/2025 11:19 PM Yessi Anne is a 34 y.o. at 28w4d who presented to Labor and Delivery for symptomatic hypoglycemia. She had been trending BGTs in place of a 1hr GTT and her Dexcom was frequently reading less than 55. She was transported from an outside hospital to [facility] with normal blood sugar readings from fingersticks however was feeling symptomatic. Her blood sugars while admitted to [facility] were within normal limit. An EKG demonstrated sinus rhythm. However her hemoglobin was noted to be 9.5 so she did receive a one-time dose of Venofer this admission. She did undergo a growth ultrasound as well as a BPP on 01/27 with the read pending at the time of her discharge. Her heart rate tracing remained overall appropriate for her gestational age and was category 1 and reactive prior to discharge. She was then deemed stable for discharge and discharged home with follow-up with her primary OB. She felt reassured prior to discharge. 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 Department of Obstetrics and Gynecology [facility] Discharge Summary Admission on 01/26/2025 11:19 PM Yessi Anne is a 34 y.o. at 28w4d who presented to Labor and Delivery for symptomatic hypoglycemia. She had been trending BGTs in place of a 1hr GTT and her Dexcom was frequently reading less than 55. She was transported from an outside hospital to [facility] with normal blood sugar readings from fingersticks however was feeling symptomatic. Her blood sugars while admitted to [facility] were within normal limit. An EKG demonstrated sinus rhythm. However her hemoglobin was noted to be 9.5 so she did receive a one-time dose of Venofer this admission. She did undergo a growth ultrasound as well as a BPP on 01/27 with the read pending at the time of her discharge. Her heart rate tracing remained overall appropriate for her gestational age and was category 1 and reactive prior to discharge. She was then deemed stable for discharge and discharged home with follow-up with her primary OB. She felt reassured prior to discharge. Meds: Medication List CONTINUE taking these medications buPROPion SR 150 MG 12 hr tablet Commonly known as: Wellbutrin SR ondansetron ODT 4 MG disintegrating tablet Commonly known as: Zofran-ODT pyridoxine 100 MG tablet Commonly known as: Vitamin B-6 STOP taking these medications hydrOXYzine HCl 10 MG tablet Commonly known as: Atarax Discharge to: Home Discharge date: 01/27/25 Discharge Dx: Symptomatic Hypoglycemia, Hx GDMA1, Poor Weight Gain, Cat II FHT, Hx Loss, Hx CD, Hx Ectopic , Hx Abdominal Surgery, Anxiety Follow up appointment with your doctor/distribution center supervisor - Keep next scheduled appointment Activity - Normal Activity Call your doctor/distribution center supervisor if you have: - leaking fluid - vaginal bleeding - regular contractions: More than 6 contractions in one hour - decreased movement - worsening abdominal (belly) pain - headache, blurry vision, increased swelling, upper abdominal pain Cherry Pham MD 01/27/2025 12:49 PM Cosigned by Josemanuel Stringer MD at 01/27/2025 2:20 PM EDT documented in this encounter [facility] 01-27-2025 Hospital Discharg e instructions Cherry Pham MD - 01/27/2025 12:48 PM EDT Follow up appointment with your doctor/distribution center supervisor - Keep next scheduled appointment Activity - Normal Activity Call your doctor/distribution center supervisor if you have: - leaking fluid - vaginal bleeding - regular contractions: More than 6 contractions in one hour - decreased movement - worsening abdominal (belly) pain - headache, blurry vision, increased swelling, upper abdominal pain If you are going home with contractions that are uncomfortable/painful- we recommend these coping strategies: rhythmic breathing, hydrotherapy, imagery or visualization, gentle massage, walking and changing your position. Treatment Verification: Yessi Anne was assessed on Labor and Delivery for a related visit on 01/27/25 . Cherry Pham MD [facility] documented in this encounter [facility] 01-27-2025 Note Formatting of this n ote might be different from the original. 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 N/A Housing Stability In the last 12 months, was there a time when you did not have a steady place to sleep or slept in a penitentiary (including now)? No Transportation Needs Has the lack of Transportation kept you from medical appointments? No In the past 12 months, has the lack of transportation kept you from meetings, work, or from getting things needed for daily living? No Food Insecurity Within the past 12 months, have you worried that your food would run out before you got the money to buy more? No Stress Do you feel stress - tense, restless, nervous, or anxious, or unable to sleep at night because you mind is troubled all the time? Mood stable Referral To Financial Resources: N/A Community Resources: PNU folder given upon admission to PNU Unit Social Work: N/A CLP: N/A Medical Information 34 year old admitted for hypoglycemia at 28/4 weeks. 6 Para 2. MFM consult Discharge Plan Home or Community Resources: PNU Admission folder given upon admission to unit Equipment: N/A Education Given: PNU admit folder and see Education Tab Additional Information: N/A Mental Health Services: N/A Developmental Delay: N/A Children's Services: N/A T [facility] 01-27-2025 Note Formatting of this n ote might be different from the original. Date: 01/27/2025 Name: Yessi Anne : 1990 [facility] Information [place] Patient Information Primary Caregiver: Self Accompanied by/Relationship: S/O;Family Marital Status: Support System: SO/Family Sikh/Cultural Factors: None Activities of Daily Living Communication: See demographics Living Arrangements Current Residence: Private residence Lives With: S/O; Family Support System: S/O; Family Income Information Income Source: Employed Financial Resource Strain How hard is it for you to pay for the very basics like food, housing, medical care and heating? N/A Housing Stability In the last 12 months, was there a time when you did not have a steady place to sleep or slept in a penitentiary (including now)? No Transportation Needs Has the lack of Transportation kept you from medical appointments? No In the past 12 months, has the lack of transportation kept you from meetings, work, or from getting things needed for daily living? No Food Insecurity Within the past 12 months, have you worried that your food would run out before you got the money to buy more? No Stress Do you feel stress - tense, restless, nervous, or anxious, or unable to sleep at night because you mind is troubled all the time? Mood stable Referral To Financial Resources: N/A Community Resources: PNU folder given upon admission to PNU Unit Social Work: N/A CLP: N/A Medical Information 34 year old admitted for hypoglycemia at 28/4 weeks. 6 Para 2. MFM consult Discharge Plan Home or Community Resources: PNU Admission folder given upon admission to unit Equipment: N/A Education Given: PNU admit folder and see Education Tab Additional Information: N/A Mental Health Services: N/A Developmental Delay: N/A Children's Services: N/A [facility] 01-27-2025 Miscellaneous Notes Formattin g of this note might be different from the original. 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 N/A Housing Stability In the last 12 months, was there a time when you did not have a steady place to sleep or slept in a penitentiary (including now)? No Transportation Needs Has the lack of Transportation kept you from medical appointments? No In the past 12 months, has the lack of transportation kept you from meetings, work, or from getting things needed for daily living? No Food Insecurity Within the past 12 months, have you worried that your food would run out before you got the money to buy more? No Stress Do you feel stress - tense, restless, nervous, or anxious, or unable to sleep at night because you mind is troubled all the time? Mood stable Referral To Financial Resources: N/A Community Resources: PNU folder given upon admission to PNU Unit Social Work: N/A CLP: N/A Medical Information 34 year old admitted for hypoglycemia at 28/4 weeks. 6 Para 2. MFM consult Discharge Plan Home or Community Resources: PNU Admission folder given upon admission to unit Equipment: N/A Education Given: PNU admit folder and see Education Tab Additional Information: N/A Mental Health Services: N/A Developmental Delay: N/A Children's Services: N/A documented in this encounter [facility] 01-27-2025 History of Presen t illness Narrative Images from the original note were not included. Department of Obstetrics and Gynecology Labor and Delivery Triage Note CHIEF CONCERN: Hypo-glycemia HISTORY OF PRESENT ILLNESS: Presents as a transfer from [facility] for symptomatic hypoglycemia. Blood sugar here within normal limits The patient is a 34 y.o. at 28w4d. Estimated Due Date: Estimated Date of Delivery: 04/17/25 OB History: OB History 6 Para 2 Term 2 0 AB 3 Living 0 SAB 1 IAB Ectopic 2 Multiple 0 Live Births 2 OB History Para Term AB Living 6 2 2 0 3 0 SAB IAB Ectopic Multiple Live Births 1 2 0 2 # Outcome Date GA Lbr Jimmie/2nd Weight Sex Type Anes PTL Lv 6 Current 5 Ectopic 01/2023 Medical Arlette 4 Term 02/2022 M CS-LTranv Gen N ND Complications: Abruptio Placenta 3 Term 2019 6 lb 1 oz (2.75 kg) F Vag-Spont N MARK Complications: Lacerations 2 Ectopic 1 SAB REVIEW OF SYSTEMS: Pertinent items are noted in HPI. APPEARANCE: Pain: no PHYSICAL EXAM: Vital Signs: VS wnl-reviewed/Respirations normal effort Vitals: 01/27/25 0101 01/27/25 0103 01/27/25 0140 01/27/25 0141 BP: 99/60 105/65 94/61 Pulse: 102 98 (!) 174 92 Resp: Temp: TempSrc: SpO2: Speculum Exam: defer heart rate: Category I Cervix: defer Membranes: Intact BSUS: vertex presentation IMPRESSION: Discussed with M attending Dr. Stringer, will plan to admit for blood sugar trending as well as continuous monitoring. Patient is in agreement with this. See H&P DISCUSSED WITH C PROVIDER: Dr. Stringer DISPOSITION: Admit to L&D Cosigned by Alejandra Tena DO at 01/27/2025 6:24 AM EDT Associated attestation - Alejandra Tena DO - 01/27/2025 6:24 AM EDT Hospital Care (Independent): I independently saw and evaluated the patient. I agree with the findings and plan of care as documented in the resident's note. Alejandra Tena DO documented in this encounter [facility] 01-27-2025 History and physical note Department of Obstetrics and Gynecology History and Physical CHIEF COMPLAINT: Hypoglycemia HISTORY OF PRESENT ILLNESS: The patient is a 34 y.o. female at 28w4d. OB History 6 Para 2 Term 2 0 AB 3 Living 0 SAB 1 IAB Ectopic 2 Multiple 0 Live Births 2 Patient presents with a chief complaint as above and is being admitted for hypoglycemia. Patient states that she has been trending her blood sugars as she did not do her 1 hour glucose tolerance test. States that she has been getting alerts from her Dexcom that her sugars have been going below 55, and she has been feeling symptomatic. Presented initially to an outside hospital with complaints of dizziness and lightheadedness. Sugar at that time was noted to be a 70, was treated while in the EMS. On her admission to [facility], her sugar was 113 while her Dexcom was reading 60. Discussed plan of care with MFM attending Dr. Stringer, plan to admit for continuous monitoring and blood sugar trending. She has no acute OB complaints at this time. Transport: Yes Prior Hospitalizations: No Estimated Due Date: Estimated Date of Delivery: None noted. CARE: Complications: See Below PAST OB HISTORY: OB History 6 Para 2 Term 2 0 AB 3 Living 0 SAB 1 IAB Ectopic 2 Multiple 0 Live Births 2 Detailed OB History G1 SAB G1 TSVD G3 PCD- Demise G4 Ectopic G5 Ectopic G6 Current Past Medical History: Medical History[1] Past Surgical History: Surgical History[2] Allergies: Doxycycline Social History: Social History Socioeconomic History Marital status: Spouse name: Not on file Number of children: Not on file Years of education: Not on file Highest education level: Not on file Occupational History Not on file Tobacco Use Smoking status: Never Smokeless tobacco: Never Vaping Use Vaping status: Never Used Substance and Sexual Activity Alcohol use: Not Currently Drug use: Never Sexual activity: Yes Other Topics Concern Not on file Social History Narrative Not on file Social Drivers of Health Financial Resource Strain: Not on file Food Insecurity: Not on file Transportation Needs: Not on file Physical Activity: Not on file Stress: Not on file Social Connections: Not on file Intimate Partner Violence: Not on file Housing Stability: Not on file Family History: Family History[3] Medications Prior to Admission: Prescriptions Prior to Admission[4] REVIEW OF SYSTEMS: Review of Systems Constitutional: Negative for chills and fever. Respiratory: Negative for chest tightness and shortness of breath. Cardiovascular: Negative for chest pain and palpitations. Gastrointestinal: Negative for abdominal distention, abdominal pain, nausea and vomiting. Genitourinary: Negative for vaginal bleeding and vaginal discharge. Neurological: Negative for dizziness and light-headedness. Labs: CBC, Type and Screen, POCT Glucose PHYSICAL EXAM: Vitals: 01/26/25 2338 BP: 102/65 Pulse: 95 Resp: 18 Temp: 36.6 C (97.9 F) TempSrc: Oral SpO2: 100% General appearance: awake, alert, cooperative, no apparent distress, and appears stated age Neurologic: Awake, alert, oriented to name, place and time. Lungs: No increased work of breathing, good air exchange Abdomen: Soft, non tender, gravid, consistent with her gestational age Sterile Speculum Exam: Defer, not indicated Cervix: Defer Contraction frequency: none Fetus: EFW: 633g, AC 21%tile on 24w4d US Presentation: Vertx by U/S genetics: CELL FREE DNA: low risk Hx of PTL: [place] given previously: No ASSESSMENT AND PLAN: LABOR DELIVERY ??? SCD's ONLY (labor through ambulation) SCD's PLUS Prophylactic Anticoagulation until discharge SCD's PLUS Prophylactic Anticoagulation for 6 weeks SCD's PLUS Therapeutic Anticoagulation for 6 weeks Vaginal Delivery [] BMI >= 40 kg/m2 Delivery All patients Vaginal Delivery [] BMI >= 40 kg/m2 AND [] Antepartum hospitalization >= 72 hours within the past month Delivery 1 Major Risk Factor: [] BMI >= 35 kg/m2 [] Low Risk Thrombophilia [] PPH+RBCs, IR, or operation [] Infection+Antibiotics [] Antepartum hospitalization >= 72 hours within the past month [] PMH: Sickle Cell, SLE, Cardiac Dz, Active IBD, Active Cancer, Nephrotic Syndrome OR 2 Minor Risk Factors: [] Multiple gestation [] Age > 40 [] PPH >= 1,000cc [] (+)FMH of VTE [] Smoker [] Preeclampsia [] BMI >= 40 kg/m2 AND [] Low Risk Thrombophilia OR ANY OF THE FOLLOWING: [] High Risk Thrombophilia without prior VTE [] Low Risk Thrombophilia with (+)FMH of VTE [] Any single prior VTE ANY OF THE FOLLOWING: [] Already on LMWH/UFH [] Multiple prior VTE [] High Risk Thrombophilia with prior VTE Low Risk Thrombophilia: FVL (heterozygous), Prothrombin (heterozygous), Protein C, Protein S High Risk Thrombophilia: FVL (homozygous), Prothrombin (homozygous), FVL+Prothrombin (heterozygous), Antithrombin III, APLS VTE Prophylaxis: Not Indicated Admission: Admit to Antepartum (PNU) FHR: Category 1, heart monitoring CEFM Labs: GBS ordered, but not yet obtained GC/CT ordered, but not yet obtained Urine ordered, but not yet obtained FFN not obtained Type&Screen ordered, but not yet obtained Serum Labs CBC, POCT glucose Consults: MFM Imaging: Indicated/ordered growth, BPP 7/10 AM Diet: General Testing: TBD Timing and Route of Delivery: 37 weeks Medications: Neuroprotection Not indicated Tocolysis Not indicated Antibiotics Not indicated Steroids: Betamethasone - not indicated Symptomatic Hypoglycemia Hx GDMA1 Poor Weight Gain - Patient admitted as transfer due to concern for symptomatic hypoglycemia -Has been trending BGT's as she did not do her 1 hour GTT, states that her Dexcom has been alerting her that her blood sugars frequently less than 55 - Presented to outside hospital, blood sugar within normal limits however patient was feeling symptomatic - Transferred to [facility] for further care with MFM - BGT on admission 113, Dexcom reading 60 at that time - Given IV fluid bolus in triage, CBC, CMP unremarkable - No electrolyte abnormalities noted, TSH wnl - EKG sinus rhythm - Plan to trend blood sugars while admitted and treat lows as needed - Most recent weights: 11/30/24 61 kg, 05/08/22 67.6 kg, 08/18/19 68.9 kg - Has previously met with dietitian and states that she is able to tolerate p.o., states that she is eating constantly throughout the day - Consider inpatient fishing worker consult - Growth US/BPP ordered for AM Category II FHT - Report from outside hospital states that NST was reassuring however did have intermittent variables - heart tracing category 1 while in triage and reassuring for gestational age - Will keep on continuous monitoring Hx Loss Hx CD - G3 primary due to category 2 heart tracing with subsequent demise due to pulmonary hemorrhage - At the time of demise placental pathology consistent with -maternal hemorrhage; pattern of hemorrhage consistent with recent COVID infection - S/p MFM consult, weekly BPP/Dopplers, weekly NST from 32-week on, delivery at 37 weeks - TORCH testing negative - Desires Hx Ectopic Hx Abdominal Surgery - G4 ectopic treated with methotrexate - G5 ectopic, left salpingectomy 01/2024 Anxiety - Continue home Wellbutrin 150 mg BID - Consider CLP consult 2/2 demise if patient desires IUP @ 28w4d - Dating by LMP - Cephalic on 01/27 - Monitoring: CEFM - Diet: General - BMZ deferred Discussed with Dr. Stringer, who agrees with plan. Lindsay Hare DO 01/27/2025, 1:17 AM Cc: Alejandra Tena DO [1] Past Medical History: Diagnosis Date Anxiety Asthma Enlarged thyroid PTSD (post-traumatic stress disorder) [2] Past Surgical History: Procedure Laterality Date SECTION, LOW TRANSVERSE CYST REMOVAL 2013 cyst removed from cheek HYSTEROSCOPY 2022 SALPINGECTOMY Left 01/2024 TONSILLECTOMY [3] Family History Problem Relation Name Age of Onset Hypertension Mother Asthma Mother Hyperthyroidism Mother Hypertension Father Depression Sister Diabetes Maternal Grandmother Hypertrophic cardiomyopathy Maternal Grandmother Hypertension Maternal Grandmother Mental illness Maternal Grandmother Miscarriages / Stillbirths Maternal Grandmother Macular degeneration Maternal Grandmother Prostate cancer Maternal Grandfather Lung cancer Maternal Grandfather Hypertension Maternal Grandfather Hypertension Paternal Grandmother Diabetes type II Paternal Grandmother Breast cancer Paternal Grandmother Lung cancer Paternal Grandfather Hypertension Paternal Grandfather [4] Medications Prior to Admission Medication Sig Dispense Refill Last Dose/Taking buPROPion SR (Wellbutrin SR) 150 MG 12 hr tablet Take 150 mg by mouth twice a day. 01/26/2025 at 8:00 PM ondansetron ODT (Zofran-ODT) 4 MG disintegrating tablet Take 4 mg by mouth every 8 hours as needed for nausea. Past Month pyridoxine (Vitamin B-6) 100 MG tablet Take 100 mg by mouth daily. 01/26/2025 at 7:00 AM hydrOXYzine HCl (Atarax) 10 MG tablet Take 10 mg by mouth every 6 hours as needed for anxiety. (Patient not taking: Reported on 01/26/2025) More than a month Cosigned by Josemanuel Stringer MD at 01/27/2025 2:19 PM EDT Associated attestation - Josemanuel Stringer MD - 01/27/2025 2:19 PM EDT Hospital Care (Independent): I independently saw and evaluated the patient. I agree with the findings and plan of care as documented in the resident's note. Yessi Anne is a 34 y.o. at 28w4d who is admitted for evaluation of hypoglycemia. The patient reports that she had been unable to tolerate the GCT secondary to N/V. She has been patterning her blood sugars with CGM and noted some periods of hypoglycemia. Many of these were occurring overnight and she was waking with symptoms related to same. She reports that she is overall improved this morning. She has low tolerance of diet during so far and has been having small meals throughout the day. Review of systems is negative this morning. BP 98/66 Pulse 91 Temp 36.7 C (98.1 F) (Oral) Resp 16 Ht 1.575 m (5' 2) Wt 61.2 kg (135 lb) SpO2 97% BMI 24.69 kg/m Component Latest Ref Rng 01/26/2025 01/27/2025 Glucose 70 - 100 mg/dL 113 (H) 122 (H) Glucose 84 Glucose 129 (H) Component Latest Ref Rng 01/27/2025 THYROID STIMULATING HORMONE 0.35 - 4.94 uIU/mL 3.50 Component Latest Ref Rng 01/27/2025 HEMOGLOBIN 11.7 - 16.0 g/dL 9.5 (L) HEMATOCRIT 35.0 - 47.0 % 28.3 (L) Normal CMP and ECG The patient is here with episodes of hypoglycemia for which she has been symptomatic. Findings here suggest euglycemia over several checks, which is reassuring. No other acute findings, but anemic and TSH higher than goal. I have given precautions. She has follow up in office with me in 7 days. Think reasonable to manage as outpatient. Given Venofer prior to discharge. Romy Stringer MD [facility] Maternal- [facility] This documentation was prepared using [employer] voice recognition software. As a result, errors may occur. When identified, these errors have been corrected. While every attempt is made to correct errors during dictation, errors may still exist. [facility] 01-27-2025 Note Attestation signed by Josemanuel Stringer MD at 01/27/2025 2:19 PM Hospital Care (Independent): I independently saw and evaluated the patient. I agree with the findings and plan of care as documented in the resident's note. Yessi Anne is a 34 y.o. at 28w4d who is admitted for evaluation of hypoglycemia. The patient reports that she had been unable to tolerate the GCT secondary to N/V. She has been patterning her blood sugars with CGM and noted some periods of hypoglycemia. Many of these were occurring overnight and she was waking with symptoms related to same. She reports that she is overall improved this morning. She has low tolerance of diet during so far and has been having small meals throughout the day. Review of systems is negative this morning. BP 98/66 Pulse 91 Temp 36.7 ?C (98.1 ?F) (Oral) Resp 16 Ht 1.575 m (5' 2) Wt 61.2 kg (135 lb) SpO2 97% BMI 24.69 kg/m? Component Latest Ref Rng 01/26/2025 01/27/2025 Glucose 70 - 100 mg/dL 113 (H) 122 (H) Glucose 84 Glucose 129 (H) Component Latest Ref Rng 01/27/2025 THYROID STIMULATING HORMONE 0.35 - 4.94 uIU/mL 3.50 Component Latest Ref Rng 01/27/2025 HEMOGLOBIN 11.7 - 16.0 g/dL 9.5 (L) HEMATOCRIT 35.0 - 47.0 % 28.3 (L) Normal CMP and ECG The patient is here with episodes of hypoglycemia for which she has been symptomatic. Findings here suggest euglycemia over several checks, which is reassuring. No other acute findings, but anemic and TSH higher than goal. I have given precautions. She has follow up in office with me in 7 days. Think reasonable to manage as outpatient. Given Venofer prior to discharge. Romy Stringer MD RON FACOG Maternal- Medicine This documentation was prepared using GalaDo voice recognition software. As a result, errors may occur. When identified, these errors have been corrected. While every attempt is made to correct errors during dictation, errors may still exist. Department of Obstetrics and Gynecology History and Physical CHIEF COMPLAINT: Hypoglycemia HISTORY OF PRESENT ILLNESS: The patient is a 34 y.o. female at 28w4d. OB History 6 Para 2 Term 2 0 AB 3 Living 0 SAB 1 IAB Ectopic 2 Multiple 0 Live Births 2 Patient presents with a chief complaint as above and is being admitted for hypoglycemia. Patient states that she has been trending her blood sugars as she did not do her 1 hour glucose tolerance test. States that she has been getting alerts from her Dexcom that her sugars have been going below 55, and she has been feeling symptomatic. Presented initially to an outside hospital with complaints of dizziness and lightheadedness. Sugar at that time was noted to be a 70, was treated while in the EMS. On her admission to [facility], her sugar was 113 while her Dexcom was reading 60. Discussed plan of care with MFM attending Dr. Stringer, plan to admit for continuous monitoring and blood sugar trending. She has no acute OB complaints at this time. Transport: Yes Prior Hospitalizations: No Estimated Due Date: Estimated Date of Delivery: None noted. CARE: Complications: See Below PAST OB HISTORY: OB History 6 Para 2 Term 2 0 AB 3 Living 0 SAB 1 IAB Ectopic 2 Multiple 0 Live Births 2 Detailed OB History G1 SAB G1 TSVD G3 PCD- Demise G4 Ectopic G5 Ectopic G6 Current Past Medical History: Medical History[1] Past Surgical History: Surgical History[2] Allergies: Doxycycline Social History: Social History Socioeconomic History Marital status: Spouse name: Not on file Number of children: Not on file Years of education: Not on file Highest education level: Not on file Occupational History Not on file Tobacco Use Smoking status: Never Smokeless tobacco: Never Vaping Use Vaping status: Never Used Substance and Sexual Activity Alcohol use: Not Currently Drug use: Never Sexual activity: Yes Other Topics Concern Not on file Social History Narrative Not on file Social Drivers of Health Financial Resource Strain: Not on file Food Insecurity: Not on file Transportation Needs: Not on file Physical Activity: Not on file Stress: Not on file Social Connections: Not on file Intimate Partner Violence: Not on file Housing Stability: Not on file Family History: Family History[3] Medications Prior to Admission: Prescriptions Prior to Admission[4] REVIEW OF SYSTEMS: Review of Systems Constitutional: Negative for chills and fever. Respiratory: Negative for chest tightness and shortness of br (more content not included)... [facility] 01-27-2025 History and physical note Department of Obstetrics and Gynecology History and Physical CHIEF COMPLAINT: Hypoglycemia HISTORY OF PRESENT ILLNESS: The patient is a 34 y.o. female at 28w4d. OB History 6 Para 2 Term 2 0 AB 3 Living 0 SAB 1 IAB Ectopic 2 Multiple 0 Live Births 2 Patient presents with a chief complaint as above and is being admitted for hypoglycemia. Patient states that she has been trending her blood sugars as she did not do her 1 hour glucose tolerance test. States that she has been getting alerts from her Dexcom that her sugars have been going below 55, and she has been feeling symptomatic. Presented initially to an outside hospital with complaints of dizziness and lightheadedness. Sugar at that time was noted to be a 70, was treated while in the EMS. On her admission to [facility], her sugar was 113 while her Dexcom was reading 60. Discussed plan of care with MFM attending Dr. Stringer, plan to admit for continuous monitoring and blood sugar trending. She has no acute OB complaints at this time. Transport: Yes Prior Hospitalizations: No Estimated Due Date: Estimated Date of Delivery: None noted. CARE: Complications: See Below PAST OB HISTORY: OB History 6 Para 2 Term 2 0 AB 3 Living 0 SAB 1 IAB Ectopic 2 Multiple 0 Live Births 2 Detailed OB History G1 SAB G1 TSVD G3 PCD- Demise G4 Ectopic G5 Ectopic G6 Current Past Medical History: Medical History[1] Past Surgical History: Surgical History[2] Allergies: Doxycycline Social History: Social History Socioeconomic History Marital status: Spouse name: Not on file Number of children: Not on file Years of education: Not on file Highest education level: Not on file Occupational History Not on file Tobacco Use Smoking status: Never Smokeless tobacco: Never Vaping Use Vaping status: Never Used Substance and Sexual Activity Alcohol use: Not Currently Drug use: Never Sexual activity: Yes Other Topics Concern Not on file Social History Narrative Not on file Social Drivers of Health Financial Resource Strain: Not on file Food Insecurity: Not on file Transportation Needs: Not on file Physical Activity: Not on file Stress: Not on file Social Connections: Not on file Intimate Partner Violence: Not on file Housing Stability: Not on file Family History: Family History[3] Medications Prior to Admission: Prescriptions Prior to Admission[4] REVIEW OF SYSTEMS: Review of Systems Constitutional: Negative for chills and fever. Respiratory: Negative for chest tightness and shortness of breath. Cardiovascular: Negative for chest pain and palpitations. Gastrointestinal: Negative for abdominal distention, abdominal pain, nausea and vomiting. Genitourinary: Negative for vaginal bleeding and vaginal discharge. Neurological: Negative for dizziness and light-headedness. Labs: CBC, Type and Screen, POCT Glucose PHYSICAL EXAM: Vitals: 01/26/25 2338 BP: 102/65 Pulse: 95 Resp: 18 Temp: 36.6 C (97.9 F) TempSrc: Oral SpO2: 100% General appearance: awake, alert, cooperative, no apparent distress, and appears stated age Neurologic: Awake, alert, oriented to name, place and time. Lungs: No increased work of breathing, good air exchange Abdomen: Soft, non tender, gravid, consistent with her gestational age Sterile Speculum Exam: Defer, not indicated Cervix: Defer Contraction frequency: none Fetus: EFW: 633g, AC 21%tile on 24w4d US Presentation: Vertx by U/S genetics: CELL FREE DNA: low risk Hx of PTL: Celestone given previously: No ASSESSMENT AND PLAN: LABOR DELIVERY ??? SCD's ONLY (labor through ambulation) SCD's PLUS Prophylactic Anticoagulation until discharge SCD's PLUS Prophylactic Anticoagulation for 6 weeks SCD's PLUS Therapeutic Anticoagulation for 6 weeks Vaginal Delivery [] BMI >= 40 kg/m2 Delivery All patients Vaginal Delivery [] BMI >= 40 kg/m2 AND [] Antepartum hospitalization >= 72 hours within the past month Delivery 1 Major Risk Factor: [] BMI >= 35 kg/m2 [] Low Risk Thrombophilia [] PPH+RBCs, IR, or operation [] Infection+Antibiotics [] Antepartum hospitalization >= 72 hours within the past month [] PMH: Sickle Cell, SLE, Cardiac Dz, Active IBD, Active Cancer, Nephrotic Syndrome OR 2 Minor Risk Factors: [] Multiple gestation [] Age > 40 [] PPH >= 1,000cc [] (+)FMH of VTE [] Smoker [] Preeclampsia [] BMI >= 40 kg/m2 AND [] Low Risk Thrombophilia OR ANY OF THE FOLLOWING: [] High Risk Thrombophilia without prior VTE [] Low Risk Thrombophilia with (+)FMH of VTE [] Any single prior VTE ANY OF THE FOLLOWING: [] Already on LMWH/UFH [] Multiple prior VTE [] High Risk Thrombophilia with prior VTE Low Risk Thrombophilia: FVL (heterozygous), Prothrombin (heterozygous), Protein C, Protein S High Risk Thrombophilia: FVL (homozygous), Prothrombin (homozygous), FVL+Prothrombin (heterozygous), Antithrombin III, APLS VTE Prophylaxis: Not Indicated Admission: Admit to Antepartum (PNU) FHR: Category 1, heart monitoring CEFM Labs: GBS ordered, but not yet obtained GC/CT ordered, but not yet obtained Urine ordered, but not yet obtained FFN not obtained Type&Screen ordered, but not yet obtained Serum Labs CBC, POCT glucose Consults: MFM Imaging: Indicated/ordered growth, BPP 7/10 AM Diet: General Testing: TBD Timing and Route of Delivery: 37 weeks Medications: Neuroprotection Not indicated Tocolysis Not indicated Antibiotics Not indicated Steroids: Betamethasone - not indicated Symptomatic Hypoglycemia Hx GDMA1 Poor Weight Gain - Patient admitted as transfer due to concern for symptomatic hypoglycemia -Has been trending BGT's as she did not do her 1 hour GTT, states that her Dexcom has been alerting her that her blood sugars frequently less than 55 - Presented to outside hospital, blood sugar within normal limits however patient was feeling symptomatic - Transferred to [facility] for further care with MFM - BGT on admission 113, Dexcom reading 60 at that time - Given IV fluid bolus in triage, CBC, CMP unremarkable - No electrolyte abnormalities noted, TSH wnl - EKG sinus rhythm - Plan to trend blood sugars while admitted and treat lows as needed - Most recent weights: 11/30/24 61 kg, 05/08/22 67.6 kg, 08/18/19 68.9 kg - Has previously met with dietitian and states that she is able to tolerate p.o., states that she is eating constantly throughout the day - Consider inpatient fishing worker consult - Growth US/BPP ordered for AM Category II FHT - Report from outside hospital states that NST was reassuring however did have intermittent variables - heart tracing category 1 while in triage and reassuring for gestational age - Will keep on continuous monitoring Hx Loss Hx CD - G3 primary due to category 2 heart tracing with subsequent demise due to pulmonary hemorrhage - At the time of demise placental pathology consistent with -maternal hemorrhage; pattern of hemorrhage consistent with recent COVID infection - S/p MFM consult, weekly BPP/Dopplers, weekly NST from 32-week on, delivery at 37 weeks - TORCH testing negative - Desires Hx Ectopic Hx Abdominal Surgery - G4 ectopic treated with methotrexate - G5 ectopic, left salpingectomy 01/2024 Anxiety - Continue home Wellbutrin 150 mg BID - Consider CLP consult 2/ demise if patient desires IUP @ 28w4d - Dating by LMP - Cephalic on 01/27 - Monitoring: CEFM - Diet: General - BMZ deferred Discussed with Dr. Stringer, who agrees with plan. Lindsay Hare DO 01/27/2025, 1:17 AM Cc: Alejandra Tena DO [1] Past Medical History: Diagnosis Date Anxiety Asthma Enlarged thyroid PTSD (post-traumatic stress disorder) [2] Past Surgical History: Procedure Laterality Date SECTION, LOW TRANSVERSE CYST REMOVAL 2013 cyst removed from cheek HYSTEROSCOPY 2022 SALPINGECTOMY Left 01/2024 TONSILLECTOMY [3] Family History Problem Relation Name Age of Onset Hypertension Mother Asthma Mother Hyperthyroidism Mother Hypertension Father Depression Sister Diabetes Maternal Grandmother Hypertrophic cardiomyopathy Maternal Grandmother Hypertension Maternal Grandmother Mental illness Maternal Grandmother Miscarriages / Stillbirths Maternal Grandmother Macular degeneration Maternal Grandmother Prostate cancer Maternal Grandfather Lung cancer Maternal Grandfather Hypertension Maternal Grandfather Hypertension Paternal Grandmother Diabetes type II Paternal Grandmother Breast cancer Paternal Grandmother Lung cancer Paternal Grandfather Hypertension Paternal Grandfather [4] Medications Prior to Admission Medication Sig Dispense Refill Last Dose/Taking buPROPion SR (Wellbutrin SR) 150 MG 12 hr tablet Take 150 mg by mouth twice a day. 01/26/2025 at 8:00 PM ondansetron ODT (Zofran-ODT) 4 MG disintegrating tablet Take 4 mg by mouth every 8 hours as needed for nausea. Past Month pyridoxine (Vitamin B-6) 100 MG tablet Take 100 mg by mouth daily. 01/26/2025 at 7:00 AM hydrOXYzine HCl (Atarax) 10 MG tablet Take 10 mg by mouth every 6 hours as needed for anxiety. (Patient not taking: Reported on 01/26/2025) More than a month Cosigned by Josemanuel Stringer MD at 01/27/2025 2:19 PM EDT Associated attestation - Josemanuel Stringer MD - 01/27/2025 2:19 PM EDT Hospital Care (Independent): I independently saw and evaluated the patient. I agree with the findings and plan of care as documented in the resident's note. Yessi Anne is a 34 y.o. at 28w4d who is admitted for evaluation of hypoglycemia. The patient reports that she had been unable to tolerate the GCT secondary to N/V. She has been patterning her blood sugars with CGM and noted some periods of hypoglycemia. Many of these were occurring overnight and she was waking with symptoms related to same. She reports that she is overall improved this morning. She has low tolerance of diet during so far and has been having small meals throughout the day. Review of systems is negative this morning. BP 98/66 Pulse 91 Temp 36.7 C (98.1 F) (Oral) Resp 16 Ht 1.575 m (5' 2) Wt 61.2 kg (135 lb) SpO2 97% BMI 24.69 kg/m Component Latest Ref Rng 01/26/2025 01/27/2025 Glucose 70 - 100 mg/dL 113 (H) 122 (H) Glucose 84 Glucose 129 (H) Component Latest Ref Rng 01/27/2025 THYROID STIMULATING HORMONE 0.35 - 4.94 uIU/mL 3.50 Component Latest Ref Rng 01/27/2025 HEMOGLOBIN 11.7 - 16.0 g/dL 9.5 (L) HEMATOCRIT 35.0 - 47.0 % 28.3 (L) Normal CMP and ECG The patient is here with episodes of hypoglycemia for which she has been symptomatic. Findings here suggest euglycemia over several checks, which is reassuring. No other acute findings, but anemic and TSH higher than goal. I have given precautions. She has follow up in office with me in 7 days. Think reasonable to manage as outpatient. Given Venofer prior to discharge. Romy Stringer MD RON FACOG Maternal- Medicine This documentation was prepared using GalaDo voice recognition software. As a result, errors may occur. When identified, these errors have been corrected. While every attempt is made to correct errors during dictation, errors may still exist. documented in this encounter [facility] 11-30-2024 Note [facility] CONSULTATION Referring Provider Saritha Salgado MD [phone] [address] ASSESSMENT AND RECOMMENDATIONS Patient comes today for a follow-up consultation regarding her history of 37-week demise with pulmonary hemorrhage. Patient today is without complaints. Today, we took the time to extensively review her obstetrical records together while she was in the office. Patient reports that in the concerning , she presented to [facility]. She underwent a period of monitoring which [...] than capable care provided by her primary aircraft shipping checker. Romy OVERTONA FACOG Maternal- Medicine SUBJECTIVE Yessi [...] Gen ND Comments: Stat LTCS, transported to [facility] NICU with anemia and passed of pulmonary hemorrhage Complications: Category II heart rate tracing during labor and delivery 2 Term 12/05/19 39w0d 2.75 kg F Vag-Spont EPI N MARK Comments: SGA,GDMA1 1 2017 Problem List[1] Past Medical History: Diagnosis Date [...] Blood Pressure Paternal (more content not included)... [facility] 06-17-2023 Discharge summary Note Date/Time June 17, 2023 3:56pm [facility] Medical Records Department [address] [place] [address] Instructions for Home/Discharge Instructions 06/17/23 1556 MR#: [id number] Acct: [id number] Name: YESSI ANNE Rep #:[id number] : 1990 33 From: Analia Mcgregor DO PCP: Care Physician,No Primary Status :[facility] Discharge Instructions Diet Discharge Diet: No restrictions [...] Attending Provider: Analia Mcgregor Primary Care Provider: [place] Physician,No Primary Discharge Orders/Prescriptions Prescriptions: New naproxen [...] CC: No Primary Care Physician ~ Signed [facility] Work Phone: 1([phone]) 235-208411-28-[address] [facility] 06-17-2023 History and physical note Author Analia Kimbrough [facility] June 17, 2023 2:13pm Note Date/Time June 17, 2023 2:13pm [facility] Medical Records Department [address] [place] [id number] History & Physical Exam 06/17/23 1413 MR#: [id number] Acct: [id number] Name: YESSI ANNE Rep #:[id number] : 1990 33 From: Analia Mcgregor DO PCP: [place] Physician,No Primary Status :[facility] Location: [place] [address] History and Physical Date of Admission: 06/17/23 Intake Vital Signs 04/17/2311:46 05/26/2313:40 Height 5 ft 1 in 5 ft 1 in Weight: 157 lb 2 oz BMI 29.7 BP 120/82 H Intake Visit Reasons: right side pain/US room [place] Required: No Is patient in pain?: No [...] house current occupational status: employed current occupation: [employer] pets and animals: Yes Smoking Status: Never [...] term 6lbs 1oz Female 12 hours epidural [facility] Dr. Erendira Velasco 02/25/22 Miguel Angel 37 live - full term C- section Male [facility] Hal Delivery Date: 12/05/19 Last Updated by: Valeire Escoto Gestational diabetes, small for gestational age Delivery Date: 02/25/22 Last Updated by: Jaclyn Freire decl LTCS STAT. baby transported to [place] with anemia and passed @ 1812 of pulmonary hemorrhage ROS Const ROS Unobtainable: [...] Mcgregor DO; No Primary Care Physician~ Signed [facility] Work Phone: 1(512) 995-959405-10-2022 NoteHemoglobin EvaluationMay 2021 10:22am10.3 g[facility] Work Phone: 1(491) 467-528005-10-2022 NoteHemoglobin EvaluationMay 2021 10:22am10.3 g[facility] Work Phone: 1(596) 309-820205-10-2022 NoteHemoglobin EvaluationMay 2021 10:22am10.3 g[facility] Work Phone: 1(647) 342-362601-05-2022 NoteHNO ID: [id number] Author: Heraclio Wilcox MA Service: ? Author Type: Casting Sorter Type: Progress Notes Filed: 07/25/2021 3:00 PM [...] Heraclio Wilcox MA July 25, 2021 2:56 [facility]01-04-2022 NotePatient Outreach (NETNAV) YESSI ANNE ([id number]) 1990 F Date Time Provider Department 07/24/21 [...] dizziness Date Reviewed: 05/07/2018 Reviewed by: Kate ([facility]) HILARIA Lincoln - Fully Assessed Reason for Visit: Population Health Navigation Outreach [3910] Cmt: Offboarding - Dr Nitin SCHULTZ Prescriptions as of 07/25/2021 - PROGESTERONE VAGINAL [...] 04/23/2016 Encounter Status:Closed by HERACLIO WILCOX on 07/25/21[facility] complaint+Reason for visit Narrative* Chief Complaint med check RIGHT SHOULDER PAIN Neck pain Back pain COVID-19 Vertigo E-ORDER Reason for Visit depressio n Right shoulder strain Spasm of thoracic back muscle Back pain Segmental and somatic dysfunction of cervical region Segmental and somatic dysfunction of thoracic region Back pain Segmental and somatic dysfunction of thoracic region Vertigo [facility] Work Phone: Evaluation note* Diagnosis Onset [...] and somatic dysfunction of thoracic region acute [facility] Work Phone: Evaluation note* Diagnosis Onset [...] thoracic region acute Supervision of normal acute [facility] Work Phone: Evaluation note* Diagnosis Onset [...] currently resolved resolved Supervision of normal resolved [facility] Work Phone: Evaluation note* Diagnosis Onset [...] thoracic region acute care and examination acute [facility] Work Phone: Evaluation note* Diagnosis Onset [...] thoracic region acute care and examination acute [facility] Work Phone: Evaluation note* Diagnosis Onset [...] and examination acute Left thyroid nodule acute [facility] Work Phone: Evaluation note* Diagnosis Onset [...] and examination acute Left thyroid nodule acute [facility] Work Phone: Evaluation note* Diagnosis Onset Date Resolution Status depression acute Right shoulder strain acute Spasm of thoracic back muscle acute Back pain acute Segmental and somatic dysfunction of cervical region acute Segmental and somatic dysfunction of thoracic region acute Back pain acute Segmental and somatic dysfunction of thoracic region acute Vertigo noneactive [facility] Work Phone: Evaluation note* Diagnosis Onset Date Resolution Status Vertigo noneactive Back pain acute Segmental and somatic dysfunction of cervical region acute Segmental and somatic dysfunction of lumbar region acute Segmental and somatic dysfunction of thoracic region acute [facility] Work Phone: Evaluation note* Diagnosis Onset Date Resolution Status Vertigo noneactive Back pain acute Segmental and somatic dysfunction of cervical region acute Segmental and somatic dysfunction of lumbar region acute Segmental and somatic dysfunction of thoracic region acute Ectopic acute [facility] Work Phone: Evaluation note* Diagnosis Onset [...] and somatic dysfunction of thoracic region acute [facility] Work Phone: evaluation note* Diagnosis Onset Date [...] and somatic dysfunction of thoracic region acute [facility] Work Phone: Evaluation note* Diagnosis Onset [...] and somatic dysfunction of thoracic region acute [facility] Work Phone: evaluation note* Diagnosis Onset Date Resolution Status Ectopic [...] and somatic dysfunction of thoracic region acute [facility] Work Phone: Evaluation note* Diagnosis Onset [...] acute Encounter for routine gynecological examination noneactive [facility] Work Phone: Evaluation note* Diagnosis Onset [...] of thoracic region acute Pelvic pain acute [facility] Work Phone: Evaluation note* Diagnosis [facility] Hypogly[facility]- Primary Hypoglycemia, unspecified documented in this encounter [facility] Summary Purpose Family History No Family History [...] Will No August 20 5:47pm Power of Deburring And Tooling Machine Operator No August 20, 2021 5:47pm Advance Directive Response Recorded Date/ Time Living Will No February 04, 2022 10:16am Power of Deburring And Tooling Machine Operator No February 04 10:16am Advance Directive Response Recorded Date/ Time Living Will No February 25, 2022 2:16pm Power of Deburring And Tooling Machine Operator No February 25 2:16pm Advance Directive Response Recorded Date/ Time Living Will No May 03 3:45pm Power of Deburring And Tooling Machine Operator No May 03, 2022 3:45pm Advance Directive Response Recorded Date/ Time Living Will No May 03 2:45pm Power of Deburring And Tooling Machine Operator No May 03, 2022 2:45pm Date Activated Date Inactivated Comments 01/27/2025 1:11 AM 01/27/2025 3:49 PM Chief Complaint and Reason for Visit Chief [...] 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 xfer of care from [facility], approx 31 wks GROWTH Adjustment 33wk [...] 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 xfer of care from [facility] OBG[facility], approx 31 wks GROWTH Adjustment 33wk [...] Back pain INT LABS INT LABS Annual (SECURITY SYSTEM ANALYST) Reason for Visit Ectopic Back pain Segmental [...] Back pain INT LABS INT LABS Annual (SECURITY SYSTEM ANALYST) LEFT THYROID NODULE Reason for Visit Ectopic [...] Back pain INT LABS INT LABS Annual (SECURITY SYSTEM ANALYST) LEFT THYROID NODULE right side pain/US room [...] section and content) DATE CREATED AUTHOR 10/08/2021 [facility] DATE CREATED AUTHOR AUTHOR'S ORGANIZ ATION 01/31/2025 [facility] DATE CREATED AUTHOR AUTHOR'S ORGANIZ ATION 03/02/2025 [facility] DATE CREATED AUTHOR AUTHOR'S ORGANIZ ATION 03/04/2025 [facility] Care Teams (unrecognized sec tion and content) [...] Refer ring Provider Active Dr. Adali Catherine DC Attending Provider Active Team Status: Inactive Member Role Status Dates No Primary Care Physician Primary Care Provider, Refer ring Provider Active Nicola GRACIA PA Attending Provider Active Team Status: Inactive Member Role Status Dates No Primary Care Physician Primary Care Provider, Refer ring Provider Active Albaro GRACIA, PA Attending Provider Active Team Status: Inactive Member Role Status Dates No Primary Care Physician Primary Care Provider Active Dr. Analia Mcgregor DO Attending Provider, Refe rring Provider Active Team Status: Active Member Role Status Dates No Primary Care Physician Primary Care Provider Active [address] MIG TIG WELDER, MIG TIG WELDER-C Attending Provider, Referring Provider Active Team Status: Inactive Member Role Status Dates No Primary Care Physician Primary Care Provider Active [address] MIG TIG WELDER, MIG TIG WELDER-C Attending Provider, Referring Provider Active Team Status: [...] Active Health Risk Assessment Attending Provider Active Manager Shift Relationship Specialty Start Date End Date No Primary Care[place] [address] PCP - General Pediatrics 01/23/22 Macarena Bourne MD Plastic Panel Installer Obstetrics Gynecology 08[facility]13[facility]19 [facility] [place] [address] Genetic Counselor Genetics 07/04/22 Manager Shift Relationship Specialty Start Date End Date No Primary Care, [place] [address] PCP - General Pediatrics 01/23/22 Macarena Bourne MD Plastic Panel Installer Obstetrics Gynecology 08/13/19 [facility] [place] [address] Genetic Counselor Genetics 07/04/22 Reason for Visit (unrecogniz ed section and content) Reason Comments Hypoglycemia Patient transfer [facility] arely rodriguez for low blood sugars. Specialty Diagnoses / Procedures Referred By Marichuy pace Referred To Contact Diagnoses Hypoglycemia Procedures . Alejandra Tena, DO [address] [address] Phone: tel: fax: [facility] [address] [place] [address] Phone: tel: Referral ID Status Reason Start Date Expiration Date Visits Re quested Visits Authorized [id number] 1 Scheduled Active and Recently Administ ered Medications (unrecognized section and content) Medication Order 01/25/2025 01/26/2025 01/27/2025 buPROPion SR (Wellbutrin SR) 12 hr tablet 150 mg 150 mg, Oral, 2 times daily, First dose (after last modification) on Fri01/28/25 at 0900, Do not crush, chew, or split. iron sucrose (Venofer) 300 mg in sodium chloride 0.9 % 250 mL IVPB (COMPLETED) 300 mg, IntraVENous, at 166.7 mL/hr, Administer over 90 Minutes, Once, On Sharlene 01/27/25 at 1000, For 1 dose, Observe for signs and symptoms of hypersensitivity and/or anaphylactic-type reactions per institutional standard during and following administration. 1052 (New Bag - Prov ider: Brandi Emery RN)1231 (Stopped - Provider: Brandi Emery RN) lactated ringers bolus 1,000 mL (COMPLETED) 1,000 mL, IntraVENous, at 500 mL/hr, Administer over 2 Hours, Once, On Sharlene 01/27/25 at 0030, For 1 dose 0043 (New Bag - Prov ider: Radha Loaiza RN)0243 (Stopped - Provider: Isrrael Uribe RN) metoclopramide (Reglan) injection 10 mg (COMPLETED) 10 mg, IntraVENous, Once, On Sharlene 01/27/25 at 0030, For 1 dose 0045 (Given - Provid er: Radha Loaiza RN) vitamin tablet 1 tablet, Oral, Daily, First dose on Sharlene 01/27/25 at 0900 0808 (Given - Provid er: Brandi Emery RN) sodium chloride 0.9% (NS) flush 10 mL 10 mL, IntraVENous, Every 12 hours scheduled (2 times per day), First dose on Sharlene 01/27/25 at 0900 0809 (Not Given - Pr ovider: Brandi Emery RN - Reason: IV Fluids Infusing) Continuous Medication Order 01/25/2025 01/26/2025 01/27/2025 lactated Ringer's infusion 125 mL/hr, IntraVENous, Continuous, Starting on Sharlene 01/27/25 at 0515 0513 (New Bag - Prov ider: Isrrael Uribe RN)1544 (Due: Order Ending - Provider: Automatic Discharge Provider - Comment: [Order ends at this time. Document the following action when infusion is complete: Stopped]) PRN Medication Order 01/25/2025 01/26/2025 01/27/2025 acetaminophen (Tylenol) tablet 650 mg 650 mg, Oral, Every 4 hours PRN, mild pain (1-3), Fever GREATER than 100.5 F (38 C), Starting on Sharlene 01/27/25 at 0109, Maximum dose of acetaminophen is 4000 mg from all sources in 24 hours. ondansetron (Zofran) injection 4 mg(Linked Group 1) 4 mg, IntraVENous, Every 6 hours PRN, nausea, vomiting, Starting on Sharlene 01/27/25 at 0109, 1st Line. Give IV if patient is unable to take orally. If inadequate response within 60 minutes, proceed to next-line agent or contact provider if no further options ordered. ondansetron ODT (Zofran-ODT) disintegrating tablet 4 mg(Linked Group 1) 4 mg, Oral, Every 8 hours PRN, nausea, vomiting, Starting on Sharlene 01/27/25 at 0109, 1st Line. If inadequate response within 60 minutes, proceed to next-line agent or contact provider if no further options ordered. Patient should allow tablet to dissolve on tongue. Do not remove from blister pack until just before administering. sodium chloride 0.9 % infusion 5-250 mL/hr, IntraVENous, PRN, if patient receiving piggyback infusions and maintenance fluids are not ordered OR KVO fluids to protect IV site / prevent frequent line interruptions/ long duration, Starting on Sharlene 01/27/25 at 0109, For piggyback infusion, administer at same rate as piggyback for a total of 25 mL. Enter 25 mL into dose field and piggyback rate into rate field of order. If piggyback is infusing at a rate less than 100 mL/hr, enter 25 mL into dose field and 100 mL/hr into rate field of order. For KVO fluids, enter rate of 20 mL/hr or less into rate field of order. sodium chloride 0.9% (NS) flush 10 mL 10 mL, IntraVENous, PRN, line care, Starting on Sharlene 01/27/25 at 0109, After every IV line use Linked Groups Order Group 1: ondansetron ODT (Zofran-ODT) disintegrating tablet 4 mgJump to med 4 mg, Oral, Every 8 hours PRN, nausea, vomiting, Starting on Sharlene 01/27/25 at 0109, 1st Line. If inadequate response within 60 minutes, proceed to next-line agent or contact provider if no further options ordered. Patient should allow tablet to dissolve on tongue. Do not remove from blister pack until just before administering. Or ondansetron (Zofran) injection 4 mgJump to med 4 mg, IntraVENous, Every 6 hours PRN, nausea, vomiting, Starting on Sharlene 01/27/25 at 0109, 1st Line. Give IV if patient is unable to take orally. If inadequate response within 60 minutes, proceed to next-line agent or contact provider if no further options ordered. FOR RECORDS PERTAINING TO PATIENTS WHO ARE [...] BE BASED ON THE PRIMARY CLINICAL RECORDS. [facility] [employer] [facility]. provides no warranty or guarantee of the accuracy or completeness of information in this document.
[2025-03-05] MEDS: Betamethasone/Betamethasone 30 MG/5 ML Vial 12 MG IM (10:43)
--- NOTE | 2025-03-05 12:15 | OB.TRI.HP_ITS ---
HPI - General HPI Narrative KIKO ANNE, is a 35 F who presents at 33.6 for repeat Celestone injection. NST for high risk Maternal Data Information ANISA Calculator Estimated Delivery Date Method Current WG Current Estimate 04/17/25 Ultrasound #1 33w 6d PFSH PFSH Medical History Threatened Acute bronchitis, unspecified Concentration deficit History of depression PTSD (post-traumatic stress disorder) Wears glasses Wears contact lenses Depression Anxiety Thyroid disease Ectopic Anemia Asthma Non-smoker delivery delivered Decreased movements in third trimester Abnormal Pap smear of cervix Right foot sprain Right ankle sprain Frequent headaches Cyst of face Sprain of right hand Right wrist sprain SGA (small for gestational age), , affecting care of mother, antepartum Gestational diabetes Asthma Acute wheezy bronchitis Home Medications ?Medication ?Instructions ?Recorded ?Last Taken ?Type hydroxyzine HCl 10 mg tablet 10 mg PO TID PRN anxiety #90 tabs 07/06/24 Unknown Rx ondansetron 4 mg disintegrating 4 mg PO Q6H PRN nausea and 09/08/24 Unknown Rx tablet vomiting #90 tabs bupropion HCl 150 mg tablet,12 hr 150 mg PO BID 90 day s #180 ea 12/07/24 03/04/25 08:00 Rx sustained-release 150 mg blood-glucose sensor (FreeStyle #1 ea 01/06/25 Unknown Rx Wolfgang 2 Plus Sensor device) flash glucose scanning reader #1 ea 01/06/25 Unknown R x (FreeStyle Wolfgang 2 [place]) pen needle, diabetic 31 gauge x #100 01/06/25 Unkno wn Rx / (Droplet Pen Needle) pyridoxine (vitamin B6) 100 mg 100 mg PO QDAY #14 tabs 01/19/25 03/03/25 21:00 Rx tablet 100 mg blood sugar diagnostic (Blood #120 ea 01/25/25 Unknown Rx Glucose Test strips) blood-glucose meter #1 ea 01/25/25 Unknown Rx lancets 30 gauge (Droplet Lancets) #200 ea 01/25/25 Un known Rx aspirin 81 mg tablet,delayed 81 mg PO DAILY 02/22/25 0 03/03/25 21:00 History release (Adult Low Dose Aspirin) 81 mg omeprazole magnesium 20 mg 20 mg PO DAILY 02/22/25 21:00 History tablet,delayed release (Prilosec 20 mg OTC) breast pump #1 ea 03/04/25 Unknown Rx Allergy/AdvReac Type Severity Reaction Status Date / Time doxycycline AdvReac Mild Nausea Verified 03/05/25 10:22 Family History Grandmother Breast cancer Lung cancer Father Hypertension Mother Hypertension Thyroid disorder Asthma Grandfather Colon cancer Lung cancer Mother Diabetes Sister Depression Surgical History Previous section H/O unilateral salpingectomy (~02/12/24) H/O laparoscopy History of tonsillectomy Social History household members: spouse and children housing: house current occupational status: employed current occupation: [employer] pets and animals: Yes Smoking Status: Never smoker alcohol intake: never substance use type: does not use what type of physical activity do you participate in: none do you feel safe at home: Yes additional social history: - Rod History 6 Elective abortions Hx Para 1 Spontaneous abortions 1 Hx # Term Pregnancies 2 Ectopic pregnancies 2 Hx # Pregnancies Multiple births # of living children 1 Past Pregnancies Del. Date Name GA/Weeks Outcome Route Bth Weight Gen Labor Lgth Anesthesia Del Locatn Provider FOB Unknown 2017 SAB Unknown 2022 Ectopic Unknown 2023 Ectopic 12/05/19 Gretel 39 live - full term 6lbs 1oz Female 12 hours epidural [facility] Dr. Erendira Velasco 02/25/22 Miguel Angel 37 live - full term Male [facility] Hal Delivery Date: 12/05/19 Last Updated by: Valerie Escoto Gestational diabetes, small for gestational age Delivery Date: 02/25/22 Last [facility] to [place] with anemia and passed @ 1812 of pulmonary hemorrhage Visit Details Expected Delivery Route/Plan TOLAC if able patient counseled regarding risks/benefits of trial of labor versus repeat . ACOG/uptodate education given to patient. [] % likelihood of success per calculator TOLAC consent form signed: [] Plans Covid status: [] Flu vaccine: [] Tdap vaccine: [] Rhogam: [] LARC form signed: [] Problem list reviewed and updated with the most current plan of care details and appropriate orders placed. Relevant counseling for the gestational age provided. Continue routine care and follow up unless otherwise noted in visit notes/problem list details OB Flowsheet Initial Weight: 138 lb Date -?-?-?-?-?-?-?-?-?-?-?-?- EGA Weight BP Urine Prot -?-?-?-?-?-?-?-?-?-?-?-?- Glucose FHR FuHt Pres Dilation -?-?--?-?-?-?-?-?-?-?-?-?- Effaced St Visit Note 08/23/24 -?-?-?-?-?-?-?-?-?-?-?-?- 6w 1d 138 lb 2 oz (+2 oz) 102/72 -?-?-?-?-?-?-?-?-?-?-?-?- -?-?-?-?-?-?-?-?-?-?-?-?- SM- GS 18mm and ys seen possible 1 mm early pole 08/30/24 -?-?-?-?-?-?-?-?-?-?-?-?- 7w 1d 138 lb (+0 oz) 100/70 -?-?-?-?-?-?-?-?-?-?-?-?- 130 -?-?-?-?-?-?-?-?-?-?-?-?- SM- no vb crampi ng measuring 6w4d .65cm cons with LMP 09/08/24 -?-?-?-?-?-?-?-?-?-?-?-?- 8w 3d 138 lb (+0 oz) 110/77 Negative -?-?-?-?-?-?-?-?-?-?-?-?- Negative 169 -?-?-?-?-?-?-?-?-?-?-?-?- KW- work in for spotting after vomiting. CRL cons with dates KW- work in for spotting aft er vomiting. CRL cons with dates. reassurance given and belem given 09/15/24 -?-?-?-?-?-?-?-?-?-?-?-?- 9w 3d 138 lb 2 oz (+2 oz) 111/76 -?-?-?-?-?-?-?-?-?-?-?-?- 150 -?-?-?-?-?-?-?-?-?-?-?-?- SM- some spottin g on and off, possible irregular vascuatiry seen over cervix- recommend MFM consult in the next week or two to evaluate 10/06/24 -?-?-?-?-?-?-?-?-?-?-?-?- 12w 3d 135 lb (-3 lb) 96/69 -?-?-?-?-?-?-?-?-?-?-?-?- 160 -?-?-?-?-?-?-?-?-?-?-?-?- SM- occasional s potting, having vomiting no lof 10/20/24 -?-?-?-?-?-?-?-?-?-?-?-?- 14w 3d 134 lb 4 oz (-3 lb 12 oz) 98/66 Negative -?-?-?-?-?-?-?-?-?-?-?-?- Negative 160 -?-?-?-?-?-?-?-?-?-?-?-?- SM- no vb crampi ng nausea improving 11/09/24 -?-?-?-?-?-?-?-?-?-?-?-?- 17w 2d 132 lb 4 oz (-5 lb 12 oz) 101/67 -?-?-?-?-?-?-?-?-?-?-?-?- 155 -?-?-?-?-?-?-?-?-?-?-?-?- SM- no vb crampi ng still having nausea, plan afp today, US scheduled 12/08/24 -?-?-?-?-?-?-?-?-?-?-?-?- 21w 3d 136 lb (-2 lb) 97/66 Negative -?-?-?-?-?-?-?-?-?-?-?-?- Negative 148 -?-?-?-?-?-?-?-?-?-?-?-?- DIVINA- anatomy scan overall normal but needs to return for repeat views in 4 weeks. Also recommended to have a 32 week and 36 week ultrasound. plan is to deliver at 37 weeks. give steroids week of 36. wants if possible. 01/06/25 -?-?-?-?-?-?-?-?-?-?-?-?- 25w 4d 137 lb 2 oz (-14 oz) 103/64 Negative -?-?-?-?-?-?-?-?-?-?-?-?- Negative 141 -?-?-?-?-?-?-?-?-?-?-?-?- FAVIAN dickson is wor ried about the baby's head size. She also is nervous about the OR and requests IOL (after ) wants to do wolfgang system for monitoring glucose as is nervous about vomiting the glucola 01/17/25 -?-?-?-?-?-?-?-?-?-?-?-?- 27w 1d 134 lb 8 oz (-3 lb 8 oz) 103/73 -?-?-?-?-?-?-?-?-?-?-?-?- 147 26 -?-?-?-?-?-?-?-?-?--?-?-?- FAVIAN Dickson's gluc ose log shows hypogylcemia down to the 50's and she is symptomatic. She is adding protein with her meals. recommend glucose tabs. She is also not gaining weight in despite a regular balanced diet. Labs ordered and will consul MFM. 02/01/25 -?-?-?-?-?-?-?-?-?-?-?-?- 29w 2d 133 lb 8 oz (-4 lb 8 oz) 90/66 -?-?-?-?-?-?-?-?-?-?-?-?- 145 27 -?-?-?-?-?-?-?-?-?-?-?-?- JV- s/p hospital stay at [facility] for hypoglycemia and decels. neither was noted during admission. she was given iv iron transfusion. now has pain and cording of right antecubital area. doppler ordered. lost another pound since last visit. start boost supplements with her meals. sees Dr. Joshi Friday. normal growth on scan at [facility] 02/07/25 -?-?-?-?-?-?-?-?-?-?-?-?- 30w 1d 134 lb 2 oz (-3 lb 14 oz) 99/68 Negative -?-?-?-?-?-?-?-?-?-?-?-?- Negative 140 30 -?-?-?-?-?-?-?-?-?-?-?-?- Sm- per mfm not tracking BS unless symptomatic, trcaking bps as needed per symptoms, watching fluid and protein intake, plan weekly bpp and nst at 32 sees mfm next week. 02/18/25 -?-?-?-?-?-?-?-?-?-?-?-?- 31w 5d 197 lb 2 oz (+59 lb 2 oz) 137 lb 2 oz (-14 oz) 94/64 -?-?-?-?-?-?-?-?-?-?-?-?- 135 31 -?-?-?-?-?-?-?-?-?-?-?-?- SM- no vb lof go od fm no regular ctx 02/22/25 -?-?-?-?-?-?-?-?-?-?-?-?- 32w 2d 137 lb 4 oz (-12 oz) 100/64 Negative -?-?-?-?-?-?-?-?-?-?-?-?- Negative 140 -?-?-?-?-?-?-?-?-?-?-?-?- JV- NSt not reac tive after 40 minutes and after giving an ensure drink. MFM wrote in last note that ac is <1st% and to deliver 38-39 weeks. sending note to clarify as we were under the impression that we would deliver by 37 weeks 03/04/25 -?-?-?-?-?-?-?-?-?-?-?-?- 33w 5d 137 lb (-16 oz) 102/67 -?-?-?-?-?-?-?-?-?-?-?-?- 140 -?-?-?-?-?-?-?-?-?-?-?-?- SM- no vb lof go od fm n reulgar ctx isolated variable plan steroids today and bpp extended monitoring NST FHR Rate Baby A Baseline: 120 Variability:: Moderate Accelerations:: 15 x 15 Decelerations:: None NST Reactive:: Yes FHR Category:: Category I Assessment & Plan (1) Variable heart rate decelerations, antepartum: COMMENT: steroids given 03/04 02/25 bpp PLAN: Plan Patient presents for triage evaluation secondary to second celestone injection FHT: Moderate variability reactive no decelerations category I tracing [place]: Contractions Assessment and plan: Reactive NST, reassuring maternal and status patient discharged to home to follow-up as needed. See problem list details for additional plan information. Charges/Coding Procedures Urinary/Genital [id number]: [id number] non-stress test Interp
--- NOTE | 2025-03-18 08:14 | OB.TRI.NOTE ---
HPI - General General Date of Service: 03/06/25 Chief Complaint: celestone injection HPI Narrative KIKO ANNE, is a 35 F who presents for second dose of celestone injection [facility] Medical History (Updated 03/08/25 @ 11:[address] Saritha Hong MD) delivery delivered Decreased movements in third trimester Threatened Acute bronchitis, unspecified Concentration deficit History of depression PTSD (post-traumatic stress disorder) Wears glasses Wears contact lenses Depression Anxiety Thyroid disease Ectopic Anemia Asthma Non-smoker Abnormal Pap smear of cervix Right foot sprain Right ankle sprain Frequent headaches Cyst of face Sprain of right hand Right wrist sprain SGA (small for gestational age), , affecting care of mother, antepartum Gestational diabetes Asthma Acute wheezy bronchitis Home Medications ?Medication ?Instructions ?Recorded ?Last Taken ?Type hydroxyzine HCl 10 mg tablet 10 mg PO TID PRN anxiety #90 tabs 07/06/24 Unknown Rx bupropion HCl 150 mg tablet,12 hr 150 mg PO BID 90 days #180 ea 12/07/24 03/04/25 08:00 Rx sustained-release 150 mg blood-glucose sensor (FreeStyle #1 ea 01/06/25 Unknown Rx Wolfgang 2 Plus Sensor device) flash glucose scanning reader #1 ea 01/06/25 Unknown Rx (FreeStyle Wolfgang 2 [place]) pen needle, diabetic 31 gauge x #100 ea 01/06/25 Unknown Rx 1/4 (Droplet Pen Needle) blood sugar diagnostic (Blood #120 ea 01/25/25 Unknown Rx Glucose Test strips) blood-glucose meter #1 ea 01/25/25 Unknown Rx lancets 30 gauge (Droplet Lancets) #200 ea 01/25/25 Unknown Rx breast pump #1 ea 03/04/25 Unknown Rx naproxen 500 mg tablet 500 mg PO BID PRN PRN Pain #30 tabs 03/08/25 Unknown Rx naproxen 500 mg tablet 500 mg PO BID PRN PRN Pain #30 tabs 03/08/25 Unknown Rx oxycodone-acetaminophen 5 mg-325 1 tab PO Q4H PRN pain 7 days #20 03/08/25 Unknown Rx mg tablet (Percocet) tabs oxycodone-acetaminophen 5 mg-325 1 tab PO Q4H PRN pain 7 days #20 03/08/25 Unknown Rx mg tablet (Percocet) tabs Allergy/AdvReac Type Severity Reaction Status Date / Time doxycycline AdvReac Mild Nausea Verified 03/06/25 17:23 Family History Grandmother Breast cancer Lung cancer Father Hypertension Mother Hypertension Thyroid disorder Asthma Grandfather Colon cancer Lung cancer Mother Diabetes Sister Depression Surgical History Previous section H/O unilateral salpingectomy (~02/12/24) H/O laparoscopy History of tonsillectomy Social History household members: spouse and children housing: house current occupational status: employed current occupation: [employer] pets and animals: Yes Smoking Status: Never smoker alcohol intake: never substance use type: does not use what type of physical activity do you participate in: none do you feel safe at home: Yes additional social history: [employer] History 6 Elective abortions Hx Para 2 Spontaneous abortions 1 Hx # Term Pregnancies 2 Ectopic pregnancies 2 Hx # Pregnancies 1 Multiple births # of living children 2 Past Pregnancies Del. Date Name GA/Weeks Outcome Route Bth Weight Infant Gen Labor Lgth Anesthesia Del Locatn Provider FOB Unknown 2017 SAB Unknown 2022 Ectopic Unknown 2023 Ectopic 12/05/19 Gretel 39 live - full term 6lbs 1oz Female 12 hours epidural [facility] Dr. Erendira Velasco 02/25/22 Miguel Angel 37 live - full term Male [facility] Hal 03/07/25 Dionisioopher 34 live - Male spinal [facility] Saritha Velasco Delivery Date: 12/05/19 Last Updated by: Valerie Escoto Gestational diabetes, small for gestational age Delivery Date: 02/25/22 Last Updated by: Jaclyn march [facility] STAT. baby transported to [place] with anemia and passed @ 1812 of pulmonary hemorrhage Delivery Date: 03/07/25 Last Updated by: Bia Bravo ltcs recurrent decels sm 34 NST FHR Rate Baby A Baseline: 135
== END 2025-03-05 11:48 | disposition home or self-care (01) ==
LOC: WPOUT 10:12 → WP 10:12
PROVIDERS: Referring Provider Registered Nurse; Visit Provider Registered Nurse
DX: O36.8330 Maternal care for abnormalities of the fetal heart rate or rhythm, third trimester, not applicable or unspecified (principal); N96 Recurrent pregnancy loss; Z3A.33 33 weeks gestation of pregnancy; O99.893 Other specified diseases and conditions complicating puerperium; O34.219 Maternal care for unspecified type scar from previous cesarean delivery
CPT/HCPCS: 59025; 59050; 96372; 99221; G0378; J0702

== ENCOUNTER 2025-03-06 10:48 | Inpatient (IN) | payer OTHER, SELFPAY ==
[2025-03-06] VITALS (7 sets, daily range): BP systolic 96–105; BP diastolic 54–59; PULSE 73–91; RESP 16; TEMP 36.5–36.9; O2SAT 97; BMI 25.9
--- OUTSIDE RECORDS SUMMARY | 2025-03-06 01:06 | XMS RPT_ITS | CCD ---
Author Organization [facility] Care Team Providers Care Sales Merchandiser Name Role Phone Care Physician, No Primary [...] Provider Dr. Analia Mcgregor Attending Provider [phone] Dr. Saritha Salgado Attending Provider [phone] Dr. aSritha Salgado Admit Provider Dr. Saritha Salgado Other [...] available Dr. Analia Mcgregor Attending Provider [phone] Dr. Reginaldo Saravia Attending Provider [phone] Care Physician, No Primary Primary Care Provider [...] Erendira Holloway MD, Summer T Unavailable No rotary shear cutter, Md Primary Care Provider Gemini vailable [facility] [place] Unavailable Erendira Holloway MD, Summer T Unavailable [facility] Unavailable Unavailable Primary Care Provider UnavailALEJANDRA [...] Unavailable ANALIA ZAIDI Referring Unavailab le [place] [facility] [place] Unavailable JAYSON BATES Attending Unavailable ANALIA ZAIDI Referring Unavailab PAM Everett Attending Unavailable DOC, [facility] [place] Unavailable DOC, [facility] [place] Care Unavailable SARITHA [...] STRINGER Attending Unavailable Saritha Salgado Attending Unavailable Saritha [...] Care Physician, No Primary Referring Unava ilable Sairtha Salgado Consulting Unavailable Saritha Salgado Attending Unavailable [...] [DOXYCYCLINE] Drug Allergy 2 Rash, Nausea Only [facility] (3 sources) Minocycline; Translations: [MINOCYCLINE] Drug Allergy 6 Nausea Only [facility] (3 sources) Ondansetron; Translations: [ONDANSETRON] Drug Allergy 2 Other (See Comments), GI Intolerance [facility] (1 source) Doxycycline Drug Allergy 5 [facility] Repository Medications Current Medications Medication Drug [...] hour 125 mL/hr, IntraVENous, Continuous, Starting on [facility] 01/27/25 at 0515 Start: 01-27-2025 End: 01-27-2025 1,000 mL, IntraVENous, at 50 0 mL/hr, Administer over 2 Hours, Once, On [facility] 01/27/25 at 0030, For 1 [...] 03-04-2025 OB Biophysical Prof W/O NST Normal [facility] OB Triage Progress Noteon OB Triage Progress Note Normal [facility] Seismic Prospecting Supervisor Office Visit Reporton 03-04-2025 Seismic Prospecting Supervisor Office Visit Report Normal [facility] OB Biophysical Prof W/O NSTo n 02-22-2025 OB Biophysical Prof W/O NST Normal [facility] OB Triage Physician Noteon 0 02-22-2025 OB Triage Physician Note Normal [facility] Seismic Prospecting Supervisor Office Visit Reporton 02-22-2025 Seismic Prospecting Supervisor Office Visit Report Normal [facility] Seismic Prospecting Supervisor Office Visit Reporton 02-18-2025 Seismic Prospecting Supervisor Office Visit Report Normal [facility] Progress Noteon 02-17-2025 Bi Architect Authentication Interface Message Text [facility] Co-Management Visit Yessi Anne is being [...] -40 minutes chart review and documentation Normal [facility] Free T3on 02-07-2025 Free T3 [Mass/Vol] 2.2 pg/mL Normal 2.18-3.98 [facility] Comment on above: Performed By: #### L 506.0400, L501.60714, [id number] ####[facility] [address] [place], [address] Seismic Prospecting Supervisor Office Visit Reporton 02-07-2025 Seismic Prospecting Supervisor Office Visit Report Normal [facility] T4 Free Directon 02-07-2025 T4 FREE DIRECT 1.00 ng/dL Normal 0.76-1.46 [facility] Comment on above: Performed By: #### L 506.0400, L501.21945, L501.9520 ####[facility] [address] [place], [address] Thyroid Stim Hormone (TSH)on 02-07-2025 TSH 1.360 uIU/mL Normal 0.300-4.200 [facility] Comment on above: Performed By: #### L 506.0400, L501.29641, L501.9520 ####[facility] [address] [place], [address] Progress Noteon 02-04-2025 Bi Architect Authentication Interface Message Text [facility] Co-Management Visit Yessi Anne is being [...] time spen (more content not included)... Normal [facility] Seismic Prospecting Supervisor Office Visit Reporton 02-01-2025 Seismic Prospecting Supervisor Office Visit Report Normal [facility] Venous Duplex US, Unilateral on 02-01-2025 Venous Duplex US, Unilateral Normal [facility] C-Peptideon 01-28-2025 C PEPTIDE 3.1 ng/mL Normal 1.1-4.4 [facility] Comment on above: Result Comment: C-Pe ptide reference interval is for fasting patients. Performed By: #### L 3100.7750, L3300.3500, L509.7001 ####[facility] [address] [place] [id number] Celiac Disease Profileon ENDOMYSIAL IGA Negative Normal Negative [facility] Comment on above: Performed By: #### L 3410.2400 ####[facility] [address] [facility] [address] IMMUNOGLOB A QN 161 mg/dL Normal 87-352 [facility] Comment on above: Result Comment: Perf ormed at: - [facility] [address] [id number] Director: Joseph Doe PhD, Phone: [phone] Performed By: #### L 3410.2400 ####[facility] [address] [place], [address] tTG IGA <2 Normal 0-3 [facility] Comment on above: Result Comment: Nega tive 0 - 3 Weak Positive 4 - 10 Positive >10 Tissue Transglutaminase (tTG) has been identified as the endomysial antigen. Studies have demonstr- ated that endomysial IgA antibodies have over 99% specificity for gluten sensitive enteropathy. Performed By: #### L 6660.2400 ####[facility] [address] [place], [place], [address] Insulin Levelon 01-28-2025 INSULIN,FASTING 24.6 uIU/mL Normal 2.6-24.9 [facility] Comment on above: Result Comment: Perf ormed at: - [facility] [address] [id number] Director: Joseph Doe PhD, Phone: [phone] Performed By: #### L 6190.3146, H2608.4375, Z667.4109 ####[facility] [address] [place], [place], [address] [id number] 01-27-2025 [id number] Date: 01/27/2025 Name: Yessi Anne : 1990 [facility] Patient Information Primary Caregiver: Self Accompanied by/Relationship: S/O;Family Marital Status: Support System: SO/Family Scientologist/Cultural Factors: None Activities of Daily Living Communication: [...] place to sleep or slept in a assisted (including now)? No Transportation Needs Has the [...] Developmental Delay: N/A Children's Services: N/A Normal [facility] ABO and Rh group Confirm Nom (Bld)on 01-27-2025 ABO group Nom (Bld) A [facility] Ql (RBC) Positive [facility] BLOOD TYPE AND SCREEN GELon 01-27-2025 ABO GROUPING A Normal [facility] Comment on above: Order Comment: HOLD. Specimen is valid for 3 days - nurse to verify valid specimen Performed By: #### L AB276 #### Sterile Instrument Technician: RADHA VASQUEZ ([id number]) [facility] ([facility]) [address] [place] [address] RH TYPE IN BLOOD Positive Normal [facility] Comment on above: Order Comment: HOLD. Specimen is valid for 3 days - nurse to verify valid specimen Performed By: #### L AB276 #### Sterile Instrument Technician: RADHA VASQUEZ ([id number]) [facility] BLOOD [facility] ([facility]) [address] [place] [address] Bedside Glucoseon 01-27-2025 FINGERSTICK GLU 122 mg/dL High 74-106 [facility] Comment on above: Result Comment: ERIBERTO GIRALDO OF PATIENT CARE PER NURSING PROTOCOL Performed By: #### L 501.080 ####[facility] [address] [place], [place], [id number] Blood type and Crossmatch pa gemini (Bld)on 01-27-2025 ABO group Nom (Bld) A [facility] Blood group antibody screen GEL Ql Negative [facility] [employer] D Ag Ql (RBC) Positive [facility] CBC (HEMOGRAM)on 01-27-2025 Erythrocyte distribution width (RBC) [Ratio] 12.2 % Normal 11.5-15.0 [facility] Comment on above: Performed By: #### L AB294 #### Sterile Instrument Technician: RADHA VASQUEZ ([id number]) [facility]) [address] [place] [address] Hematocrit (Bld) [Volume fraction] 28.3 % Low 35.0-47.0 [facility] Comment on above: Performed By: #### L AB294 #### Sterile Instrument Technician: RADHA VASQUEZ ([id number]) [facility]) [address] [place] [address] Hemoglobin (Bld) [Mass/Vol] 9.5 g/dL Low 11.7-16.0 [facility] Comment on above: Performed By: #### L AB294 #### Sterile Instrument Technician: RADHA VASQUEZ ([id number]) [facility]) [address] [place] [address] MCH (RBC) [Entitic mass] 30.5 pg Normal 26.0-34.0 [facility] Comment on above: Performed By: #### L AB294 #### Sterile Instrument Technician: RADHA VASQUEZ ([id number]) [facility] ([facility]) [address] [place] [address] MCHC 33.6 % Normal 30.5-36.0 [facility] Comment on above: Performed By: #### L AB294 #### Sterile Instrument Technician: RADHA VASQUEZ ([id number]) [facility]) [address] [place] [address] MCV (RBC) [Entitic vol] 91.0 fL Normal 77.0-99.0 [facility] Comment on above: Performed By: #### L AB294 #### Sterile Instrument Technician: RADHA VASQUEZ ([id number]) [facility]) [address] [place] [address] Platelet mean volume (Bld) [Entitic vol] 11.3 fL Normal 9.0-12.7 [facility] Comment on above: Performed By: #### L AB294 #### Sterile Instrument Technician: RADHA VASQUEZ ([id number]) [facility]) [address] [place] [address] Platelets (Bld) [#/Vol] 261 10*3/uL Normal 140-440 [facility] Comment on above: Performed By: #### L AB294 #### Sterile Instrument Technician: RADHA VASQUEZ ([id number]) [facility]) [address] [place] [address] RBC (Bld) [#/Vol] 3.11 10*6/uL Low 3.80-5.20 [facility] Comment on above: Performed By: #### L AB294 #### Sterile Instrument Technician: RADHA VASQUEZ ([id number]) [facility]) [address] [place] [address] WBC (Bld) [#/Vol] 9.0 10*3/uL Normal 3.6-10.7 [facility] Comment on above: Performed By: #### L AB294 #### Sterile Instrument Technician: RADHA VASQUEZ ([id number]) [facility] ([facility]) [address] [place] [address] CBC panel Auto (Bld)on 01-27 Erythrocyte distribution width (RBC) [Ratio] 12.2 % 11.5 - 15.0 % [facility] Hematocrit (Bld) [Volume fraction] 28.3 % Low 35.0 - 47.0 % [facility] Hemoglobin (Bld) [Mass/Vol] 9.5 g/dL Low 11.7 - 16.0 g/dL [facility] Interpretation and review of laboratory results Abnormal [facility] MCH (RBC) [Entitic mass] 30.5 pg 26.0 - 34.0 pg [facility] MCHC (RBC) [Mass/Vol] 33.6 % 30.5 - 36.0 % [facility] MCV (RBC) [Entitic vol] 91 fL 77.0 - 99.0 fL [facility] Platelet mean volume (Bld) [Entitic vol] 11.3 fL 9.0 - 12.7 fL [facility] Platelets (Bld) [#/Vol] 261 10*3/uL 140 - 440 10*3/uL [facility] RBC (Bld) [#/Vol] 3.11 10*6/uL Low 3.80 - 5.2 0 10*6/uL [facility] WBC (Bld) [#/Vol] 9 10*3/uL 3.6 - 10.7 10*3/uL [facility] CHLAMYDIA/GONORRHEAon 2024 CHLAMYDIA/GONORRHEA NEISSERIA GONORRHOEA E DNA [...] should be collected if clinically indicated. Normal [facility] Comment on above: Performed By: #### L [id number], [id number] #### Sterile Instrument Technician: RADHA VASQUEZ ([id number]) [facility]) [address] [place] [address] COMPREHENSIVE METABOLIC PANE Rico 01-27-2025 Albumin [Mass/Vol] 2.5 g/dL Low 3.5-5.0 [facility] Comment on above: Performed By: #### L [id number] #### Sterile Instrument Technician: RADHA VASQUEZ ([id number]) [facility]) [address] [place] [address] ALP [Catalytic activity/Vol] 75 U/L Normal 40-150 [facility] Comment on above: Performed By: #### L [id number] #### Sterile Instrument Technician: RADHA VASQUEZ ([id number]) [facility]) [address] [place] [address] ALT [Catalytic activity/Vol] 6 U/L Normal <30 [facility] Comment on above: Performed By: #### L [id number] #### Sterile Instrument Technician: RADHA [id number]) [facility]) [address] [place] [address] Anion gap [Moles/Vol] 6 mmol/L Normal 3-13 [facility] Comment on above: Performed By: #### L [id number] #### Sterile Instrument Technician: RADHA VASQUEZ ([id number]) [facility]) [address] [place] [address] AST [Catalytic activity/Vol] 18 U/L Normal <34 [facility] Comment on above: Performed By: #### L [id number] #### Sterile Instrument Technician: RADHA VASQUEZ ([id number]) [facility] ([facility]) [address] [place] [address] Bilirubin [Mass/Vol] 0.2 mg/dL Normal <1.2 [facility] Comment on above: Performed By: #### L AB294 #### Sterile Instrument Technician: RADHA VASQUEZ ([id number]) [facility] ([facility]) [address] [place] [address] Calcium [Mass/Vol] 8.5 mg/dL Normal 8.4-10.2 [facility] Comment on above: Performed By: #### L [id number] #### Sterile Instrument Technician: RADHA VASQUEZ ([id number]) [facility]) [address] [place] [address] Chloride [Moles/Vol] 106 mmol/L Normal 98-107 [facility] Comment on above: Performed By: #### L [id number] #### Sterile Instrument Technician: RADHA VASQUEZ ([id number]) [facility]) [address] [place] [address] [place] CO2 [Moles/Vol] 22 mmol/L Normal 22-29 [facility] Comment on above: Performed By: #### L [id number] #### Sterile Instrument Technician: RADHA VASQUEZ ([id number]) [facility]) [address] [place] [address] Creatinine [Mass/Vol] 0.68 mg/dL Normal 0.57-1.11 [facility] Comment on above: Performed By: #### L [id number] #### Sterile Instrument Technician: RADHA [id number]) [facility]) [address] [place] [address] GLOMERULAR FILTRATION RATE ML/MIN/1.73 SQ M.PREDICTED >90.0 Normal >60.0 [facility] Comment on above: Result Comment: Calc ulation based on the Chronic Kidney Disease Epidemiology Collaboration (CKD-EPI) equation refit without adjustment for race Performed By: #### L [id number] #### Sterile Instrument Technician: RADHA VASQUEZ ([id number]) [facility] ([facility]) [address] [place] [address] Glucose [Mass/Vol] 79 mg/dL Normal 74-100 [facility] Comment on above: Performed By: #### L [id number] #### Sterile Instrument Technician: RADHA VASQUEZ ([id number]) [facility]) [address] [place] [address] Potassium [Moles/Vol] 3.5 mmol/L Normal 3.5-5.1 [facility] Comment on above: Result Comment: Plas ma potassium values may be up to 0.5 mmol/L lower than serum values. Performed By: #### L [id number] #### Sterile Instrument Technician: RADHA VASQUEZ ([id number]) [facility]) [address] [place] [address] [place] Protein [Mass/Vol] 6.3 g/dL Low 6.4-8.3 [facility] Comment on above: Performed By: #### L [id number] #### Sterile Instrument Technician: RADHA VASQUEZ ([id number]) [facility]) [address] [place] [address] [place] Sodium [Moles/Vol] 134 mmol/L Low 136-145 [facility] Comment on above: Performed By: #### L [id number] #### Sterile Instrument Technician: RADHA VASQUEZ ([id number]) [facility]) [address] [place] [address] [place] Urea nitrogen [Mass/Vol] 6 mg/dL Low 8-21 [facility] Comment on above: Performed By: #### L [id number] #### Sterile Instrument Technician: RADHA VASQUEZ ([id number]) [facility] ([facility]) [address] [place] [address] Comprehensive metabolic 1998 panelon 01-27-2025 Albumin [Mass/Vol] 2.5 g/dL Low 3.5 - 5.0 g/dL [facility] ALP [Catalytic activity/Vol] 75 U/L 40 - 150 U/L [facility] ALT [Catalytic activity/Vol] 6 U/L NINF - 30 U/L [facility] Anion gap [Moles/Vol] 6 mmol/L 3 - 13 mmol/L [facility] AST [Catalytic activity/Vol] 18 U/L NINF - 34 U/L [facility] Bilirubin [Mass/Vol] 0.2 mg/dL NINF - 1.2 mg/dL [facility] Calcium [Mass/Vol] 8.5 mg/dL 8.4 - 10. 2 mg/dL [facility] Chloride [Moles/Vol] 106 mmol/L 98 - 10 7 mmol/L [facility] CO2 [Moles/Vol] 22 mmol/L 22 - 29 mmol/L [facility] Creatinine [Mass/Vol] 0.68 mg/dL 0.57 - 1.11 mg/dL [facility] GFR/1.73 sq M.predicted (S/P/Bld) [Vol rate/Area] - PINF [facility] Comment on above: Calculation based on the Chronic Kidney Disease Epidemiology Collaboration (CKD-EPI) equation refit without adjustment for race Glucose [Mass/Vol] 79 mg/dL 74 - 100 mg/dL [facility] Interpretation and review of laboratory results Abnormal [facility] Potassium [Moles/Vol] 3.5 mmol/L 3.5 - 5.1 mmol/L [facility] Comment on above: Plasma potassium ayanna ues may be up to 0.5 mmol/L lower than serum values. Protein [Mass/Vol] 6.3 g/dL Low 6.4 - 8.3 g/dL [facility] Sodium [Moles/Vol] 134 mmol/L Low 136 - 145 mmol/L [facility] Urea nitrogen [Mass/Vol] 6 mg/dL Low 8 - 21 mg/dL [facility] ECG 12-LEADon 01-27-2025 ECG 12-LEAD IMPRESSION: Sinus rhythm Low voltage, precordial leads Normal [place] No ST or T wave changes Electronically Signed On 01-27-2025 08:44:08 EDT by Scott Lowe Normal [facility] GROUP B STREP SCREEN BY PCRo n 01-27-2025 GROUP B STREP SCREEN BY PCR GROUP B STREP SCREEN BY PCR Reference Not Detected Not Detected ORDER COMMENTS: Methodology: real-time PCR Normal [facility] Comment on above: Performed By: #### L [id number] #### Sterile Instrument Technician: RADHA VASQUEZ ([id number]) [facility]) [address] [place] [address] Laboratory - Chemistry and C hemistry - challengeon 01-27-2025 Glucose [Mass/Vol] 122 mg/dL High 70 - 100 mg/dL [facility] Glucose [Mass/Vol] 84 mg/dL 70 - 100 mg/dL [facility] TSH Qn 3.5 m[IU]/L [facility] Glucose [Mass/Vol] 129 mg/dL High 70 - 100 mg/dL [facility] Magnesium [Mass/Vol] 2 mg/dL 1.6 - 2 .6 mg/dL [facility] MAGNESIUMon 01-27-2025 Magnesium [Mass/Vol] 2.0 mg/dL Normal 1.6-2.6 [facility] Comment on above: Result Comment: TRINA Horta COMMENTS: Higher values can be expected in females during menses. Performed By: #### L AB17, [id number], EQM145, FEA809 #### Sterile Instrument Technician: RADHA VASQUEZ ([id number]) [facility] ([facility]) [address] [place] [address] Magnesium [Mass/Vol]on 01-27 Higher values can be expected in females during menses. [facility] N. gonorrhoeae DNA MAE+probe Ql (Cervical mucus)on 01-27-2025 C. trachomatis DNA MAE+probe Ql (Unsp spec) Not detected Not Detected [facility] Interpretation and review of laboratory results Normal [facility] N gonorrhoeae, DNA Probe Not detected Not Detected [facility] Methodology: real-ti me PCR This test is [...] specimen should be collected if clinically indicated. [facility] [employer] No Panel Informationon 01-27 1. Branch live [...] ultrasound findings do not guarantee normal outcomes. [facility] OBSTETRICS REPORT (Signed Final 01/27/2025 02:35 pm) PATIENT INFO: ID #: [id number] : [birth year] (34 yrs)(F) Name: YESSI ANNE Visit Date: 01/27/2025 09:29 am PERFORMED BY: Attending: Cory Stringer MD, RON, FACOG Performed By: Oni BROWER, VONDA Referred By: TRACI MONTILLA Location: [facility] IP Visit Type: Inpatient - Hospital SERVICE(S) PROVIDED: US >= 14 weeks 13848 BPP w/out NST 07971 INDICATIONS: Poor weight gain Hypoglycemia VITAL SIGNS: [...] Normal appearance Interventr. Septum: Normal appearance Cardiac [place]: Normal appearance Diaphragm: Normal appearance 3 Vessel View: Normal appearance 3 V Trachea View: Normal appearance IVC: Normal Appearance Crossing: Normal appearance Abdomen Ventral Wal (more content not included)... [facility] Josemanuel Stringer MD - 01/27/2025 OBSTETRICS REPORT (Signed Final 01/27/2025 02:35 pm) PATIENT INFO: ID #: [id number] : [birth year] (34 yrs)(F) Name: YESSI ANNE Visit Date: 01/27/2025 09:29 am PERFORMED BY: Attending: Cory Stringer MD, RON, FACOG Performed By: Oni BROWER, RD Referred By: TRACI MONTILLA Location: [facility] IP Visit Type: Inpatient - Hospital SERVICE(S) PROVIDED: US >= 14 weeks 35048 BPP w/out NST 76729 INDICATIONS: Poor weight gain Hypoglycemia VITAL SIGNS: [...] Normal appearance Interventr. Septum: Normal appearance Cardiac Che[place]: Normal appearance Diaphragm: Normal appearance 3 Vessel [...] - Normal appearance Cory Stringer MD, RON, [facility] Electronically Signed Final Report 01/27/2025 02:35 pm IMPRESSION: (more content not included)... [facility] Interpretation and review of laboratory results Abnormal [facility] Performed by: [address] [address] CLIA ID: [id number] [facility] Sinus rhythm Low voltage, precordial leads Normal [place] No ST or T wave changes Electronically Signed On 01-27-2025 08:44:08 EDT by Scott Lowe Soctt Lopez MD - 01/27/2025 IMPRESSION: Sinus rhythm Low voltage, precordial leads Normal [place] No ST or T wave changes Electronically Signed On 01-27-2025 08:44:08 EDT by Scott Lowe [facility] Interpretation and review of laboratory results Normal [facility] Performed by: [address] [address] CLIA ID: [id number] [facility] [employer] Radiology Study observation (narrative) [facility] Interpretation and review of laboratory results Abnormal [facility] Performed by: [address] [address] CLIA ID: [id number] [facility] Interpretation and review of laboratory results Normal [facility] No Panel InformationOrdered By: Josemanuel Stringer on 01-27-2025 [employer] Work Phone: No Panel InformationOrdered By: Scott Lowe on 01-27-2025 P [place] 66 degrees [employer] Work Phone: FL Interval 134 ms [facility] Phone: QRS [place] 84 degrees [facility] Work Phone: QRSD Interval 86 ms [email or web address] Phone: QT Interval 360 ms [facility] Work Phone: QTC Interval 420 ms [email or web address] Phone: T Wave [place] 52 degrees [place] [email or web address] Phone: [facility] Phone: Nursing Noteon 01-27-2025 Nursing Note 1300 iron infusion complete, per DR. Stringer, may be discharged to home ., iv heplock removed, clean dry and intact., discharge papers given, no acute distress this afternoon, blood sugars trending normal and pt is asymptomatic at present time, feels reassured to go home., papers signed, ambulatory home Normal [facility] PHOSPHORUSon 01-27-2025 Phosphate [Mass/Vol] 3.0 mg/dL Normal 2.3-4.7 [facility] Comment on above: Performed By: #### L AB17, ULD733, ZDB345, NJX580 #### Sterile Instrument Technician: RADHA VASQUEZ ([id number]) [address] Phosphate [Moles/Vol]on 01-18 Phosphate [Mass/Vol] 3 mg/dL 2.3 - 4 .7 mg/dL [facility] Progress Noteon 01-27-2025 Progress Note ------- Attestation [...] PROVIDER: Dr. Stringer DISPOSITION: Admit to L&D [facility] T. vaginalis DNA MAE+probe Q l (Genital specimen)on 07-10-2025 Interpretation and review of laboratory results Normal [facility] Trichomonas vaginalis Not detected Not Detected [facility] Methodology: real-ti me PCR A negative result [...] sexual abuse or for other forensic purposes. [facility] THYROID STIMULATING HORMONEo n 01-27-2025 THYROID STIMULATING HORMONE 3.50 uIU/mL Normal 0.35-4.94 [facility] Comment on above: Performed By: #### L AB294 #### Sterile Instrument Technician: RADHA VASQUEZ ([id number]) [address] TRICHOMONAS VAGINALIS PCRon 01-27-2025 TRICHOMONAS VAGINALIS [...] abuse or for other forensic purposes. Normal [facility] Comment on above: Performed By: #### L QN1679, [id number] #### Sterile Instrument Technician: RADHA VASQUEZ ([id number]) [address] TSH Qnon 01-27-2025 Interpretation and review of laboratory results Normal [facility] URINE CULTUREon 01-27-2025 Bacteria identified Cx Nom (U) URINE CULTURE Reference Normal urogenital keke present [ S = SUSCEPTIBLE R = RESISTANT I = INTERMEDIATE S-DD = Susceptible-dose dependent NS = Non-susceptible NO = No Interpretation ] Normal [facility] Comment on above: Performed By: #### L AB294 #### Sterile Instrument Technician: RADHA VASQUEZ ([id number]) [address] US BIOPHYSICAL PROFILE WO NON STRESS TESTINGon 01-27-2025 US BIOPHYSICAL PROFILE WO NON STRESS TESTING OBSTETRICS REPORT (Signed Final 01/27/2025 02:35 pm) PATIENT INFO: ID #: [id number] : [birth year] (34 yrs)(F) Name: YESSI ANNE Visit Date: 01/27/2025 09:29 am PERFORMED BY: Attending: Cory Stringer MD, RON, FACOG Performed By: Oni BROWER, RDMS Referred By: TRACI MONTILLA Location: [facility] IP Visit Type: Inpatient - Hospital SERVICE(S) PROVIDED: US >= 14 weeks 30916 BPP w/out NST 11840 INDICATIONS: Poor weight gain Hypoglycemia VITAL SIGNS: [...] Normal appearance Interventr. Septum: Normal appearance Cardiac Cheraw: Normal appearance Diaphragm: Normal appearance 3 Vessel [...] 35%tile for (more content not included)... Normal [facility] US OB 14+ WEEKS SINGLE FETUS MATERNAL EVAL TRANSABDOMINALon 01-27-2025 US OB 14+ WEEKS SINGLE FETUS MATERNAL EVAL TRANSABDOMINAL OBSTETRICS REPORT (Signed Final 01/27/2025 02:35 pm) PATIENT INFO: ID #: [id number] : [birth year] (34 yrs)(F) Name: YESSI ANNE Visit Date: 01/27/2025 09:29 am PERFORMED BY: Attending: Cory Stringer MD, RON, FACOG Performed By: Oni BROWER, RDMS Referred By: TRACI MONTILLA Location: [facility] IP Visit Type: Inpatient - Hospital SERVICE(S) PROVIDED: US >= 14 weeks 62938 BPP w/out NST 52940 INDICATIONS: Poor weight gain Hypoglycemia VITAL SIGNS: [...] Normal appearance Interventr. Septum: Normal appearance Cardiac Cheraw: Normal appearance Diaphragm: Normal appearance 3 Vessel [...] 35%tile for (more content not included)... Normal [facility] Vital signsOrdered By: Scott Lowe on 01-27-2025 Heart rate 82 /min bpm [employer] Work Phone: Bedside Glucoseon 01-26-2025 FINGERSTICK GLU 117 mg/dL High 74-106 [facility] Comment on above: Result Comment: ERIBERTO GIRALDO OF PATIENT CARE PER NURSING PROTOCOL Performed By: #### L 501.080 ####[facility] [address] [place], [address] FINGERSTICK GLU 86 mg/dL Normal 74-106 [facility] Comment on above: Result Comment: ERIBERTO GEMENT OF PATIENT CARE PER NURSING PROTOCOL Performed By: #### L 501.080 ####[facility] [address] [place], [address] FINGERSTICK GLU 74 mg/dL Normal 74-106 [facility] Comment on above: Result Comment: ERIBERTO GEMENT OF PATIENT CARE PER NURSING PROTOCOL Performed By: #### L 501.080 ####[facility] [address] [place], [address] FINGERSTICK GLU 53 mg/dL Low 74-106 [facility] Comment on above: Result Comment: ERIBERTO GEMENT OF PATIENT CARE PER NURSING PROTOCOL Performed By: #### L 501.080 ####[facility] [address] [place], [address] FINGERSTICK GLU 94 mg/dL Normal 74-106 [facility] Comment on above: Result Comment: ERIBERTO GEMENT OF PATIENT CARE PER NURSING PROTOCOL Performed By: #### L 501.080 ####[facility] [address] [place], [address] CBC W/Diff, Automatedon 07-0 9-5 Absolute Lymph 1.33 X10 3/uL Normal 0.83-4.51 [facility] Comment on above: Performed By: #### L 100.0100 ####[facility] [address] [place], [address] Absolute Neut 6.0 X10 3/uL Normal 2.0-7.7 [facility] Comment on above: Performed By: #### L 100.0100 ####[facility] [address] [place], [address] Basophils/100 WBC (Bld) 0.4 % Normal 0-1 [facility] Comment on above: Performed By: #### L 100.0100 ####[facility] [address] [place], [address] Eosinophils/100 WBC (Bld) 0.4 % Normal 0-5 [facility] Comment on above: Performed By: #### L 100.0100 ####[facility] [address] [place], [address] Erythrocyte distribution width (RBC) [Ratio] 12.1 % Normal 11.6-14.6 [facility] Comment on above: Performed By: #### L 100.0100 ####[facility] [address] [place], [address] Hematocrit (Bld) [Volume fraction] 30.1 % Low 37-47 [facility] Comment on above: Performed By: #### L 100.0100 ####[facility] [address] [place], [address] Hemoglobin (Bld) [Mass/Vol] 10.3 g/dL Low 12.0-15.0 [facility] Comment on above: Performed By: #### L 100.0100 ####[facility] [address] [place], [address] IG% 0.400 Normal 0.0-0.9 [facility] Comment on above: Result Comment: IG% - Immature Granulocytes (promyelocytes, myelocytes andmetamyelocytes) > 1% indicates that a LEFT SHIFT is Present. Performed By: #### L 100.0100 ####[facility] [address] [place], [address] Lymphocytes/100 WBC (Bld) 16.7 % Low 19-41 [facility] Comment on above: Performed By: #### L 100.0100 ####[facility] [address] [place], [address] MCH (RBC) [Entitic mass] 31.0 pg Normal 27.0-32.0 [facility] Comment on above: Performed By: #### L 100.0100 ####[facility] [address] [place], [address] MCHC (RBC) [Mass/Vol] 34.2 g/dL Normal 32-36 [facility] Comment on above: Performed By: #### L 100.0100 ####[facility] [address] [place], [address] MCV (RBC) [Entitic vol] 90.7 fL Normal 81-99 [facility] Comment on above: Performed By: #### L 100.0100 ####[facility] [address] [place], [address] Monocytes/100 WBC (Bld) 6.5 % Normal 0-10 [facility] Comment on above: Performed By: #### L 100.0100 ####[facility] [address] [place], [address] Neutrophils/100 WBC (Bld) 75.6 % High 47-70 [facility] Comment on above: Performed By: #### L 100.0100 ####[facility] [address] [place], [address] Nucleated RBC (Bld) [#/Vol] 0 10*3/uL Normal 0-5 [facility] Comment on above: Performed By: #### L 100.0100 ####[facility] [address] [place], [address] Platelet mean volume (Bld) [Entitic vol] 11.3 fL Normal 6.2-12.0 [facility] Comment on above: Performed By: #### L 100.0100 ####[facility] [address] [place], [address] Platelets (Bld) [#/Vol] 252 10*3/uL Normal 150-450 [facility] Comment on above: Performed By: #### L 100.0100 ####[facility] [address] [place], [address] RBC (Bld) [#/Vol] 3.32 10*6/uL Low 4.2-5.4 [facility] Comment on above: Performed By: #### L 100.0100 ####[facility] [address] [place], [address] RDW SD 39.3 fl Normal 35.1-43.9 [facility] Comment on above: Performed By: #### L 100.0100 ####[facility] [address] [place], [address] WBC (Bld) [#/Vol] 8.0 10*3/uL Normal 4.4-11.0 [facility] Comment on above: Performed By: #### L 100.0100 ####[facility] [address] [place], [address] Comprehensive Metabolic Prof [facility] 01-26-2025 Albumin [Mass/Vol] 3.4 g/dL Low 3.5-5.0 [facility] Comment on above: Performed By: #### L 501.9520, L500.4050, L501.42362, L506.0400, L501.2450, L509.6001 ####[facility] [address] [place], [address] Albumin/Globulin [Mass ratio] 1.1 {ratio} Normal 0.9-2.4 [facility] Comment on above: Performed By: #### L 501.9520, L500.4050, L501.09884, L506.0400, L501.2450, L509.6001 ####[facility] [address] [place], [address] ALK PHOS 84 U/L Normal 35-104 [facility] Comment on above: Performed By: #### L 501.9520, L500.4050, L501.80597, L506.0400, L501.2450, L509.6001 ####[facility] [address] [place], [address] ALT [Catalytic activity/Vol] 9 U/L Normal <=34 [facility] Comment on above: Performed By: #### L 501.9520, L500.4050, L501.46061, L506.0400, L501.2450, L509.6001 ####[facility] [address] [place], [address] AST [Catalytic activity/Vol] 15 U/L Normal <=31 [facility] Comment on above: Performed By: #### L 501.9520, L500.4050, L501.33337, L506.0400, L501.2450, L509.6001 ####[facility] [address] [place], [address] Bilirubin [Mass/Vol] 0.19 mg/dL Normal 0.00-1.30 [facility] Comment on above: Performed By: #### L 501.9520, L500.4050, L501.95992, L506.0400, L501.2450, L509.6001 ####[facility] [address] [place], [address] BUN/CRE 14.0 RATIO Normal 10-20 [facility] Comment on above: Performed By: #### L 501.9520, L500.4050, L501.08345, L506.0400, L501.2450, L509.6001 ####[facility] [address] [place], [address] Calcium [Mass/Vol] 8.9 mg/dL Normal 7.6-11.0 [facility] Comment on above: Performed By: #### L 501.9520, L500.4050, L501.99564, L506.0400, L501.2450, L509.6001 ####[facility] [address] [place], [address] Chloride [Moles/Vol] 102 mmol/L Normal 98-108 [facility] Comment on above: Performed By: #### L 501.9520, L500.4050, L501.71264, L506.0400, L501.2450, L509.6001 ####[facility] [address] [place], [address] CO2 [Moles/Vol] 22.7 mmol/L Normal 21.0-32.0 [facility] Comment on above: Performed By: #### L 501.9520, L500.4050, L501.40930, L506.0400, L501.2450, L509.6001 ####[facility] [address] [place], [address] Creatinine [Mass/Vol] 0.63 mg/dL Low 0.70-1.20 [facility] Comment on above: Performed By: #### L 501.9520, L500.4050, L501.93577, L506.0400, L501.2450, L509.6001 ####[facility] [address] [place], [address] ECRCL 106.62 ml/min Normal 50-250 [facility] Comment on above: Performed By: #### L 501.9520, L500.4050, L501.82659, L506.0400, L501.2450, L509.6001 ####[facility] [address] [place], [address] GAP 11 Normal 5-15 [facility] Comment on above: Performed By: #### L 501.9520, L500.4050, L501.43145, L506.0400, L501.2450, L509.6001 ####[facility] [address] [place], [address] GFR/1.73 sq M.predicted among non-blacks MDRD (S/P/Bld) [Vol rate/Area] 120 mL/min/{1.73_m2} Normal >60 [facility] Comment on above: Result Comment: mL/m in/1.73m2 CKD-EPI Creatinine Equation (2020) Performed By: #### L 501.9520, L500.4050, L501.13304, L506.0400, L501.2450, L509.6001 ####[facility] [address] [place], [address] Globulin (S) [Mass/Vol] 3.2 g/dL Normal 2.2-4.2 [facility] Comment on above: Performed By: #### L 501.9520, L500.4050, L501.96619, L506.0400, L501.2450, L509.6001 ####[facility] [address] [place], [address] Glucose [Mass/Vol] 95 mg/dL Normal 70-99 [facility] Comment on above: Performed By: #### L 501.9520, L500.4050, L501.25341, L506.0400, L501.2450, L509.6001 ####[facility] [address] [place], [address] Potassium [Moles/Vol] 3.5 mmol/L Normal 3.3-5.1 [facility] Comment on above: Performed By: #### L 501.9520, L500.4050, L501.36259, L506.0400, L501.2450, L509.6001 ####[facility] [address] [place], [address] Sodium [Moles/Vol] 136 mmol/L Normal 133-145 [facility] Comment on above: Performed By: #### L 501.9520, L500.4050, L501.06525, L506.0400, L501.2450, L509.6001 ####[facility] [address] [place], [address] T PROT 6.6 g/dL Normal 5.9-8.4 [facility] Comment on above: Performed By: #### L 501.9520, L500.4050, L501.89864, L506.0400, L501.2450, L509.6001 ####[facility] [address] [place], [address] Urea nitrogen [Mass/Vol] 9 mg/dL Normal 4-19 [facility] Comment on above: Performed By: #### L 501.9520, L500.4050, L501.29130, L506.0400, L501.2450, L509.6001 ####[facility] [address] [place], [address] Emergency Department Summary on 01-26-2025 Emergency Department Summary Normal [facility] Free T3on 01-26-2025 Free T3 [Mass/Vol] 2.5 pg/mL Normal 2.18-3.98 [facility] Comment on above: Performed By: #### L 501.9520, L500.4050, L501.09311, L506.0400, L501.2450, L509.6001 ####[facility] [address] [place], [address] H AND P Exam - OB/GYNon 07-0 H&P Exam - SIDE TRIMMER Normal [facility] L509.6001on 01-26-2025 CORTISOL 28.80 ug/dL High 6.02-18.40 [facility] Comment on above: Performed By: #### L 501.9520, L500.4050, L501.06406, L506.0400, L501.2450, L509.6001 ####[facility] [address] [place], [place], [address] L509.7001on 01-26-2025 Procalcitonin 0.06 ng/mL Normal <=0.10 [facility] Comment on above: Result Comment: Inte [...] Performed By: #### L 3100.7750, L3300.3500, L509.7001 ####[facility] [address] [place], [address] Laboratory - Chemistry and C hemistry - challengeon 01-26-2025 Glucose [Mass/Vol] 113 mg/dL High 70 - 100 mg/dL [facility] Lipaseon 01-26-2025 Lipase [Catalytic activity/Vol] 38 U/L Normal 13-75 [facility] Comment on above: Result Comment: Plealy coronado note:LIPASE revised reference range effective 22.New Lipase methodology. Expected to produce lower valuesthan the previous assay method.NEW Reference Range: 13 - 75 U/L Performed By: #### L 501.9520, L500.4050, L501.24453, L506.0400, L501.2450, L509.6001 ####[facility] [address] [place], [address] No Panel Informationon 01-26 Interpretation and review of laboratory results Abnormal [facility] Performed by: [facility], [address] [place] [address] CLIA ID: [id number] [facility] PTHINon 01-26-2025 PTH 45 pg/mL Normal 11-61 [facility] Comment on above: Performed By: #### L 509.1000 ####[facility] [address] [place], [address] T4 Free Directon 01-26-2025 T4 FREE DIRECT 0.90 ng/dL Normal 0.76-1.46 [facility] Comment on above: Performed By: #### L 501.9520, L500.4050, L501.09273, L506.0400, L501.2450, L509.6001 ####[facility] [address] [place], [address] Thyroid Stim Hormone (TSH)on 01-26-2025 TSH 1.440 uIU/mL Normal 0.300-4.200 [facility] Comment on above: Performed By: #### L 501.9520, L500.4050, L501.99995, L506.0400, L501.2450, L509.6001 ####[facility] [address] [place], [address] Urinalysis, Completeon 01-26 EPI,SQUAMOUS 0-5 SEEN Normal 5-10 [facility] Comment on above: Order Comment: CLEAN CATCH Performed By: #### L 400.0001 ####[facility] [address] [place], [address] Mucus Ql (Urine sed) 1+ /hpf Normal [facility] Comment on above: Order Comment: CLEAN CATCH Performed By: #### L 400.0001 ####[facility] [address] [place], [address] RBC 0-5 SEEN Normal 0-5 [facility] Comment on above: Order Comment: CLEAN CATCH Performed By: #### L 400.0001 ####[facility] [address] [place], [place], [address] WBC 0-5 SEEN Normal 0-5 [facility] Comment on above: Order Comment: CLEAN CATCH Performed By: #### L 400.0001 ####[facility] [address] [place], [address] BACTERIA 0 SEEN Normal None Seen [facility] Comment on above: Order Comment: CLEAN CATCH Performed By: #### L 400.0001 ####[facility] [address] [place], [address] L3300.8200on 01-19-2025 VITAMIN B6 2.7 ug/L Low 3.4-65.2 [facility] Comment on above: Order Comment: Test( s) 328587-Vhskyxj B6was developed and its performance characteristicsdetermined by [employer]. It has not been cleared or approvedby the Food and Drug Administration. Result Comment: Defi ciency: <3.4 Marginal: 3.4 - 5.1 Adequate: >5.1Performed at: [facility] [address] [id number] Director: Nae Mendiola MD, Phone: [phone] Performed By: #### L 503.0106, L3890.6006, L506.0400, L3300.8200, L501.9520, L100.0100, L509.8002, L500.4050 ####[facility] [address] [place], [address] CBC W/Diff, Automatedon 06-3 0 Absolute Lymph 1.59 X10 3/uL Normal 0.83-4.51 [facility] Comment on above: Performed By: #### L 503.0106, L3890.6006, L506.0400, L3300.8200, L501.9520, L100.0100, L509.8002, L500.4050 ####[facility] [address] [place], [address] Absolute Neut 5.4 X10 3/uL Normal 2.0-7.7 [facility] Comment on above: Performed By: #### L 503.0106, L3890.6006, L506.0400, L3300.8200, L501.9520, L100.0100, L509.8002, L500.4050 ####[facility] [address] [place], [address] Basophils/100 WBC (Bld) 0.5 % Normal 0-1 [facility] Comment on above: Performed By: #### L 503.0106, L3890.6006, L506.0400, L3300.8200, L501.9520, L100.0100, L509.8002, L500.4050 ####[facility] [address] [place], [address] Eosinophils/100 WBC (Bld) 0.7 % Normal 0-5 [facility] Comment on above: Performed By: #### L 503.0106, L3890.6006, L506.0400, L3300.8200, L501.9520, L100.0100, L509.8002, L500.4050 ####[facility] [address] [place], [address] Erythrocyte distribution width (RBC) [Ratio] 12.2 % Normal 11.6-14.6 [facility] Comment on above: Performed By: #### L 503.0106, L3890.6006, L506.0400, L3300.8200, L501.9520, L100.0100, L509.8002, L500.4050 ####[facility] [address] [place], [address] Hematocrit (Bld) [Volume fraction] 31.5 % Low 37-47 [facility] Comment on above: Performed By: #### L 503.0106, L3890.6006, L506.0400, L3300.8200, L501.9520, L100.0100, L509.8002, L500.4050 ####[facility] [address] [place], [address] Hemoglobin (Bld) [Mass/Vol] 10.6 g/dL Low 12.0-15.0 [facility] Comment on above: Performed By: #### L 503.0106, L3890.6006, L506.0400, L3300.8200, L501.9520, L100.0100, L509.8002, L500.4050 ####[facility] [address] [place], [address] IG% 0.400 Normal 0.0-0.9 [facility] Comment on above: Result Comment: IG% - Immature Granulocytes (promyelocytes, myelocytes andmetamyelocytes) > 1% indicates that a LEFT SHIFT is Present. Performed By: #### L 503.0106, L3890.6006, L506.0400, L3300.8200, L501.9520, L100.0100, L509.8002, L500.4050 ####[facility] [address] [place], [address] Lymphocytes/100 WBC (Bld) 21.3 % Normal 19-41 [facility] Comment on above: Performed By: #### L 503.0106, L3890.6006, L506.0400, L3300.8200, L501.9520, L100.0100, L509.8002, L500.4050 ####[facility] [address] [place], [address] MCH (RBC) [Entitic mass] 31.2 pg Normal 27.0-32.0 [facility] Comment on above: Performed By: #### L 503.0106, L3890.6006, L506.0400, L3300.8200, L501.9520, L100.0100, L509.8002, L500.4050 ####[facility] [address] [place], [address] MCHC (RBC) [Mass/Vol] 33.7 g/dL Normal 32-36 [facility] Comment on above: Performed By: #### L 503.0106, L3890.6006, L506.0400, L3300.8200, L501.9520, L100.0100, L509.8002, L500.4050 ####[facility] [address] [place], [address] MCV (RBC) [Entitic vol] 92.6 fL Normal 81-99 [facility] Comment on above: Performed By: #### L 503.0106, L3890.6006, L506.0400, L3300.8200, L501.9520, L100.0100, L509.8002, L500.4050 ####[facility] [address] [place], [address] Monocytes/100 WBC (Bld) 4.8 % Normal 0-10 [facility] Comment on above: Performed By: #### L 503.0106, L3890.6006, L506.0400, L3300.8200, L501.9520, L100.0100, L509.8002, L500.4050 ####[facility] [address] [place], [address] Neutrophils/100 WBC (Bld) 72.3 % High 47-70 [facility] Comment on above: Performed By: #### L 503.0106, L3890.6006, L506.0400, L3300.8200, L501.9520, L100.0100, L509.8002, L500.4050 ####[facility] [address] [place], [address] Nucleated RBC (Bld) [#/Vol] 0 10*3/uL Normal 0-5 [facility] Comment on above: Performed By: #### L 503.0106, L3890.6006, L506.0400, L3300.8200, L501.9520, L100.0100, L509.8002, L500.4050 ####[facility] [address] [place], [address] Platelet mean volume (Bld) [Entitic vol] 11.6 fL Normal 6.2-12.0 [facility] Comment on above: Performed By: #### L 503.0106, L3890.6006, L506.0400, L3300.8200, L501.9520, L100.0100, L509.8002, L500.4050 ####[facility] [address] [place], [address] Platelets (Bld) [#/Vol] 280 10*3/uL Normal 150-450 [facility] Comment on above: Performed By: #### L 503.0106, L3890.6006, L506.0400, L3300.8200, L501.9520, L100.0100, L509.8002, L500.4050 ####[facility] [address] [place], [address] RBC (Bld) [#/Vol] 3.40 10*6/uL Low 4.2-5.4 [facility] Comment on above: Performed By: #### L 503.0106, L3890.6006, L506.0400, L3300.8200, L501.9520, L100.0100, L509.8002, L500.4050 ####[facility] [address] [place], [address] RDW SD 41.3 fl Normal 35.1-43.9 [facility] Comment on above: Performed By: #### L 503.0106, L3890.6006, L506.0400, L3300.8200, L501.9520, L100.0100, L509.8002, L500.4050 ####[facility] [address] [place], [place], [id number] WBC (Bld) [#/Vol] 7.5 10*3/uL Normal 4.4-11.0 [facility] Comment on above: Performed By: #### L 503.0106, L3890.6006, L506.0400, L3300.8200, L501.9520, L100.0100, L509.8002, L500.4050 ####[facility] [facility] [address] [place], [address] Comprehensive Metabolic Prof [facility] 01-17-2025 Albumin [Mass/Vol] 3.5 g/dL Normal 3.5-5.0 [facility] Comment on above: Performed By: #### L 503.0106, L3890.6006, L506.0400, L3300.8200, L501.9520, L100.0100, L509.8002, L500.4050 ####[facility] [address] [place], [address] Albumin/Globulin [Mass ratio] 1.1 {ratio} Normal 0.9-2.4 [facility] Comment on above: Performed By: #### L 503.0106, L3890.6006, L506.0400, L3300.8200, L501.9520, L100.0100, L509.8002, L500.4050 ####[facility] [address] [place], [address] ALK PHOS 81 U/L Normal 35-104 [facility] Comment on above: Performed By: #### L 503.0106, L3890.6006, L506.0400, L3300.8200, L501.9520, L100.0100, L509.8002, L500.4050 ####[facility] [address] [place], [address] ALT [Catalytic activity/Vol] 10 U/L Normal <=34 [facility] Comment on above: Performed By: #### L 503.0106, L3890.6006, L506.0400, L3300.8200, L501.9520, L100.0100, L509.8002, L500.4050 ####[facility] [address] [place], [address] AST [Catalytic activity/Vol] 16 U/L Normal <=31 [facility] Comment on above: Performed By: #### L 503.0106, L3890.6006, L506.0400, L3300.8200, L501.9520, L100.0100, L509.8002, L500.4050 ####[facility] [address] [place], [address] Bilirubin [Mass/Vol] 0.22 mg/dL Normal 0.00-1.30 [facility] Comment on above: Performed By: #### L 503.0106, L3890.6006, L506.0400, L3300.8200, L501.9520, L100.0100, L509.8002, L500.4050 ####[facility] [address] [place], [address] BUN/CRE 13.1 RATIO Normal 10-20 [facility] Comment on above: Performed By: #### L 503.0106, L3890.6006, L506.0400, L3300.8200, L501.9520, L100.0100, L509.8002, L500.4050 ####[facility] [address] [place], [address] Calcium [Mass/Vol] 9.1 mg/dL Normal 7.6-11.0 [facility] Comment on above: Performed By: #### L 503.0106, L3890.6006, L506.0400, L3300.8200, L501.9520, L100.0100, L509.8002, L500.4050 ####[facility] [address] [place], [address] Chloride [Moles/Vol] 101 mmol/L Normal 98-108 [facility] Comment on above: Performed By: #### L 503.0106, L3890.6006, L506.0400, L3300.8200, L501.9520, L100.0100, L509.8002, L500.4050 ####[facility] [address] [place], [place], [phone](418) CO2 [Moles/Vol] 20.9 mmol/L Low 21.0-32.0 [facility] Comment on above: Performed By: #### L 503.0106, L3890.6006, L506.0400, L3300.8200, L501.9520, L100.0100, L509.8002, L500.4050 ####[facility] [address] [place], [place], [phone](361) Creatinine [Mass/Vol] 0.66 mg/dL Low 0.70-1.20 [facility] Comment on above: Performed By: #### L 503.0106, L3890.6006, L506.0400, L3300.8200, L501.9520, L100.0100, L509.8002, L500.4050 ####[facility] [address] [place], [place], [phone](779) GAP 13 Normal 5-15 [facility] Comment on above: Performed By: #### L 503.0106, L3890.6006, L506.0400, L3300.8200, L501.9520, L100.0100, L509.8002, L500.4050 ####[facility] [address] [place], [address] GFR/1.73 sq M.predicted among non-blacks MDRD (S/P/Bld) [Vol rate/Area] 119 mL/min/{1.73_m2} Normal >60 [facility] Comment on above: Result Comment: mL/m in/1.73m2 CKD-EPI Creatinine Equation (2020) Performed By: #### L 503.0106, L3890.6006, L506.0400, L3300.8200, L501.9520, L100.0100, L509.8002, L500.4050 ####[facility] [address] [place], [address] Globulin (S) [Mass/Vol] 3.2 g/dL Normal 2.2-4.2 [facility] Comment on above: Performed By: #### L 503.0106, L3890.6006, L506.0400, L3300.8200, L501.9520, L100.0100, L509.8002, L500.4050 ####[facility] [address] [place], [address] Glucose [Mass/Vol] 121 mg/dL High 70-99 [facility] Comment on above: Performed By: #### L 503.0106, L3890.6006, L506.0400, L3300.8200, L501.9520, L100.0100, L509.8002, L500.4050 ####[facility] [address] [place], [address] Potassium [Moles/Vol] 3.6 mmol/L Normal 3.3-5.1 [facility] Comment on above: Performed By: #### L 503.0106, L3890.6006, L506.0400, L3300.8200, L501.9520, L100.0100, L509.8002, L500.4050 ####[facility] [address] [place], [place], [phone] Sodium [Moles/Vol] 135 mmol/L Normal 133-145 [facility] Comment on above: Performed By: #### L 503.0106, L3890.6006, L506.0400, L3300.8200, L501.9520, L100.0100, L509.8002, L500.4050 ####[facility] [address] [place], [place], [id number] T PROT 6.8 g/dL Normal 5.9-8.4 [facility] Comment on above: Performed By: #### L 503.0106, L3890.6006, L506.0400, L3300.8200, L501.9520, L100.0100, L509.8002, L500.4050 ####[facility] [address] [place], [place], [phone] Urea nitrogen [Mass/Vol] 9 mg/dL Normal 4-19 [facility] Comment on above: Performed By: #### L 503.0106, L3890.6006, L506.0400, L3300.8200, L501.9520, L100.0100, L509.8002, L500.4050 ####[facility] [address] [place], [place], [phone] HIVon 01-17-2025 HIV Non-Reactive Normal Nonreactive [facility] Comment on above: Result Comment: Non- ReactiveReactiveRepeatedly reactive samples must be confirmed according toCDC recommended confirmatory algorithms. The subresults foreither HIVAG or AHIV can be used as an aid in the selectionof the confirmation algorithm for reactive samples.Send out specimens with Reactive results to [facility] forconfirmation.Order the HIV antibody detection and differentiation:lc#[id number] Performed By: #### L 503.0106, L3890.6006, L506.0400, L3300.8200, L501.9520, L100.0100, L509.8002, L500.4050 ####[facility] [address] [place], [place], [phone] [employer] Supervisor Office Visit Reporton 01-17-2025 Se[employer] Supervisor Office Visit Report Normal [facility] Syphilis Antibodieson 2024 Syphilis Abs Non-Reactive Normal Nonreactive [facility] Comment on above: Performed By: #### L 503.0106, L3890.6006, L506.0400, L3300.8200, L501.9520, L100.0100, L509.8002, L500.4050 ####[facility] [address] [place], [place], [phone] T4 Free Directon 01-17-2025 T4 FREE DIRECT 1.00 ng/dL Normal 0.76-1.46 [facility] Comment on above: Performed By: #### L 503.0106, L3890.6006, L506.0400, L3300.8200, L501.9520, L100.0100, L509.8002, L500.4050 ####[facility] [address] [place], [place], [phone] Thyroid Stim Hormone (TSH)on 01-17-2025 TSH 1.760 uIU/mL Normal 0.300-4.200 [facility] Comment on above: Performed By: #### L 503.0106, L3890.6006, L506.0400, L3300.8200, L501.9520, L100.0100, L509.8002, L500.4050 ####[facility] [address] [place], [place], [phone] Vitamin B12on 01-17-2025 Cobalamin (Vitamin B12) [Mass/Vol] 230 pg/mL Normal 180-914 [facility] Comment on above: Performed By: #### L 503.0106, L3890.6006, L506.0400, L3300.8200, L501.9520, L100.0100, L509.8002, L500.4050 ####[facility] [address] [place], [address] [employer] Supervisor Office Visit Reporton 01-06-2025 Seismic Prospecting Supervisor Office Visit Report Normal [facility] [employer] Supervisor Office Visit Reporton 12-08-2024 Se[employer] Supervisor Office Visit Report Normal [facility] MR/BMS.BPon 12-07-2024 MR/BMS.BP Normal [facility] L3410.9992on 11-12-2024 [facility] Misc. COMMENT Normal . [facility] Comment on above: Order Comment: [id number] 1AFP SERUM RT Result Comment: Test Ordered: [id number] AFP, Serum, Open Spina BifidaResults Report TG [...] Open Spina Bifida RiskFor further inquiries contact [employer] at [phone].This test was developed and its performance characteristicsdetermined by [employer]. It has not been cleared or approvedby the Food and Drug Administration.Performed at: - [id number] [place], [place] [id number] Director: Fabiola Carson [facility], Phone: [phone] at: - [address] [id number] Director: Joseph Doe PhD, Phone: [phone] Performed By: #### L 3410.9992 ####[facility] [address] [place], [place], [address] Se[employer] Supervisor Office Visit Reporton 11-09-2024 Seismic Prospecting Supervisor Office Visit Report Normal [facility] [employer] Supervisor Office Visit Reporton 10-20-2024 Seismic Prospecting Supervisor Office Visit Report Normal [facility] MR/BMS.BPon 10-19-2024 MR/BMS.BP Normal [facility] CBC W/Diff, Automatedon 09-18 Absolute Lymph 1.98 X10 3/uL Normal 0.83-4.51 [facility] Comment on above: Performed By: #### B , L3890.6301, L3890.6102, L900.0098, L100.0100, L509.8002, L509.4006, L3890.6006 ####[facility] [address] [place], [place], [phone] Absolute Neut 5.1 X10 3/uL Normal 2.0-7.7 [facility] Comment on above: Performed By: #### B TS, L3890.6301, L3890.6102, L900.0098, L100.0100, L509.8002, L509.4006, L3890.6006 ####[facility] [address] [place], [address] Basophils/100 WBC (Bld) 0.4 % Normal 0-1 [facility] Comment on above: Performed By: #### B TS, L3890.6301, L3890.6102, L900.0098, L100.0100, L509.8002, L509.4006, L3890.6006 ####[facility] [address] [place], [address] Eosinophils/100 WBC (Bld) 0.9 % Normal 0-5 [facility] Comment on above: Performed By: #### B TS, L3890.6301, L3890.6102, L900.0098, L100.0100, L509.8002, L509.4006, L3890.6006 ####[facility] [address] [place], [address] Erythrocyte distribution width (RBC) [Ratio] 13.4 % Normal 11.6-14.6 [facility] Comment on above: Performed By: #### B TS, L3890.6301, L3890.6102, L900.0098, L100.0100, L509.8002, L509.4006, L3890.6006 ####[facility] [address] [place], [address] Hematocrit (Bld) [Volume fraction] 34.9 % Low 37-47 [facility] Comment on above: Performed By: #### B TS, L3890.6301, L3890.6102, L900.0098, L100.0100, L509.8002, L509.4006, L3890.6006 ####[facility] [address] [place], [address] Hemoglobin (Bld) [Mass/Vol] 11.8 g/dL Low 12.0-15.0 [facility] Comment on above: Performed By: #### B TS, L3890.6301, L3890.6102, L900.0098, L100.0100, L509.8002, L509.4006, L3890.6006 ####[facility] [address] [place], [address] IG% 0.500 Normal 0.0-0.9 [facility] Comment on above: Result Comment: IG% - Immature Granulocytes (promyelocytes, myelocytes andmetamyelocytes) > 1% indicates that a LEFT SHIFT is Present. Performed By: #### B TS, L3890.6301, L3890.6102, L900.0098, L100.0100, L509.8002, L509.4006, L3890.6006 ####[facility] [address] [facility] [place], [address] Lymphocytes/100 WBC (Bld) 25.8 % Normal 19-41 [facility] Comment on above: Performed By: #### B TS, L3890.6301, L3890.6102, L900.0098, L100.0100, L509.8002, L509.4006, L3890.6006 ####[facility] [address] [facility] [place], [address] MCH (RBC) [Entitic mass] 30.4 pg Normal 27.0-32.0 [facility] Comment on above: Performed By: #### B TS, L3890.6301, L3890.6102, L900.0098, L100.0100, L509.8002, L509.4006, L3890.6006 ####[facility] [address] [place], [address] MCHC (RBC) [Mass/Vol] 33.8 g/dL Normal 32-36 [facility] Comment on above: Performed By: #### B TS, L3890.6301, L3890.6102, L900.0098, L100.0100, L509.8002, L509.4006, L3890.6006 ####[facility] [address] [place], [address] MCV (RBC) [Entitic vol] 89.9 fL Normal 81-99 [facility] Comment on above: Performed By: #### B TS, L3890.6301, L3890.6102, L900.0098, L100.0100, L509.8002, L509.4006, L3890.6006 ####[facility] [address] [place], [address] Monocytes/100 WBC (Bld) 5.7 % Normal 0-10 [facility] Comment on above: Performed By: #### B TS, L3890.6301, L3890.6102, L900.0098, L100.0100, L509.8002, L509.4006, L3890.6006 ####[facility] [address] [place], [address] Neutrophils/100 WBC (Bld) 66.7 % Normal 47-70 [facility] Comment on above: Performed By: #### B TS, L3890.6301, L3890.6102, L900.0098, L100.0100, L509.8002, L509.4006, L3890.6006 ####[facility] [address] [place], [address] Nucleated RBC (Bld) [#/Vol] 0 10*3/uL Normal 0-5 [facility] Comment on above: Performed By: #### B TS, L3890.6301, L3890.6102, L900.0098, L100.0100, L509.8002, L509.4006, L3890.6006 ####[facility] [address] [place], [address] Platelet mean volume (Bld) [Entitic vol] 11.8 fL Normal 6.2-12.0 [facility] Comment on above: Performed By: #### B TS, L3890.6301, L3890.6102, L900.0098, L100.0100, L509.8002, L509.4006, L3890.6006 ####[facility] [address] [place], [address] Platelets (Bld) [#/Vol] 301 10*3/uL Normal 150-450 [facility] Comment on above: Performed By: #### B TS, L3890.6301, L3890.6102, L900.0098, L100.0100, L509.8002, L509.4006, L3890.6006 ####[facility] [address] [place], [address] RBC (Bld) [#/Vol] 3.88 10*6/uL Low 4.2-5.4 [facility] Comment on above: Performed By: #### B TS, L3890.6301, L3890.6102, L900.0098, L100.0100, L509.8002, L509.4006, L3890.6006 ####[facility] [address] [place], [address] RDW SD 43.8 fl Normal 35.1-43.9 [facility] Comment on above: Performed By: #### B TS, L3890.6301, L3890.6102, L900.0098, L100.0100, L509.8002, L509.4006, L3890.6006 ####[facility] [address] [place], [address] WBC (Bld) [#/Vol] 7.7 10*3/uL Normal 4.4-11.0 [facility] Comment on above: Performed By: #### B TS, L3890.6301, L3890.6102, L900.0098, L100.0100, L509.8002, L509.4006, L3890.6006 ####[facility] [address] [facility] [place], [place], [id number] L3890.6006on 10-06-2024 HIV Non-Reactive Normal Nonreactive [facility] Comment on above: Result Comment: Non- ReactiveReactiveRepeatedly reactive samples must be confirmed according [facility] recommended confirmatory algorithms. The subresults foreither HIVAG or AHIV can be used as an aid in the selectionof the confirmation algorithm for reactive samples.Send out specimens with Reactive results to [facility] forconfirmation.Order the HIV antibody detection and differentiation:lc#[id number] Performed By: #### B TS, L3890.6301, L3890.6102, L900.0098, L100.0100, L509.8002, L509.4006, L3890.6006 ####[facility] [address] [facility] [place], [place], [address] L3890.6102on 10-06-2024 HEP B Surf Ag Non-Reactive Normal Nonreactive [facility] Comment on above: Result Comment: Reac tive: Presumptive evidence of HBV. Repeatedly reactivesamples must be confirmed using a neutralization test([employer] HBsAg Confirmatory Test)Non-Reactive: HBsAg not detected; does not exclude thepossibility of exposure to HBV Performed By: #### B TS, L3890.6301, L3890.6102, L900.0098, L100.0100, L509.8002, L509.4006, L3890.6006 ####[facility] [address] [facility] [place], [place], [id number] L3890.6301on 10-06-2024 Hepatitis C Ab Non-Reactive Normal Nonreactive [facility] Comment on above: Result Comment: Reac tive: Presumptive evidence of antibodies to HCV. [facility].Non-Reactive: Antibodies to HCV were not detected; does notexclude the possibility of exposure to HCVReactive Results are presumptive evidence of antibodies toHCV. Follow CDC recommendations for supplemental testing.Order confirmation testing: HCV Quant by PCR testing -HCVPCR lc#[id number] Non Reactive: < 0.8 Equivocal: >/= 0.8 to < 1.0 Reactive: >/= 1.0The [facility] requires that a reactive/equivocal HCV antibodyresult be sent out for confirmation. HCV Quant by PCRtesting. Performed By: #### B TS, L3890.6301, L3890.6102, L900.0098, L100.0100, L509.8002, L509.4006, L3890.6006 ####[facility] [address] [place], [place], [address] L509.4006on 10-06-2024 Rubella IgG REAC Normal Nonreactive [facility] Comment on above: Result Comment: Anti body Result: InterpretationNon-Reactive: Non-ImmuneReactive: ImmuneThe following results were obtained with the ElecsysRubella IgG assay. Results from assays of othermanufacturers cannot be used interchangeably. Performed By: #### B TS, L3890.6301, L3890.6102, L900.0098, L100.0100, L509.8002, L509.4006, L3890.6006 ####[facility] [address] [place], [place], [address] L509.8002on 10-06-2024 Syphilis Abs Non-Reactive Normal Nonreactive [facility] Comment on above: Performed By: #### B TS, L3890.6301, L3890.6102, L900.0098, L100.0100, L509.8002, L509.4006, L3890.6006 ####[facility] [address] [place], [place], [id number] NATERAon 10-06-2024 NATURA SEE SCANNED REPORT Normal [facility] Comment on above: Performed By: #### B TS, L3890.6301, L3890.6102, L900.0098, L100.0100, L509.8002, L509.4006, L3890.6006 ####[facility] [address] [place], [address] Seismic Prospecting Supervisor Office Visit Reporton 10-06-2024 Seismic Prospecting Supervisor Office Visit Report Normal [facility] Type AND Screenon 10-06-2024 Ab SCREEN GEL Negative Normal [facility] Comment on above: Order Comment: PN Performed By: #### B TS, L3890.6301, L3890.6102, L900.0098, L100.0100, L509.8002, L509.4006, L3890.6006 ####[facility] [address] [place], [place], [phone] MISCELLANEOUS SENDOUTon 09-18 Miscellaneous Results Patient results scanned into [employer] Invalid Interpretation Code [facility] Comment on above: Order Comment: Name of Test:->NAIT What is the sendout facility name, if known?->[employer] Release to patient->Automatic (5 days after final result) Progress Noteon 09-27-2024 [employer] Authentication Interface Message Text Maternal Medicine Consult [...] term pregnancies. The second was delivered at [place] by section after continuing Category II tracing. The baby was critical and transferred to [facility] unit. It passed the same day with severe anemia that could not be corrected and a pulmonary hemorrhage. There was a documented spontaneous fetomaternal hemorrhage with a question (not proven by placental examination but likely) of abruption. (See complete preconceptual consultation by Dr. Maher from 05/08/22). Yessi was admitted to [place] from her OB office. She had noted decreased FM with a concerning NST (spontaneous deceleration) in OB office. She was transferred to hospital and delivered by urgent C/S. The was transferred quickly after delivery to [facility] for severe anemia (subsequently noted severe fetomaternal [...] Gen ND Comments: Stat LTCS, transported to [facility] NICU with anemia and passed of pulmonary [...] No Ne (more content not included)... Normal [facility] Emergency Department Summary on 09-26-2024 Emergency Department Summary Normal [facility] M100.678on 09-26-2024 M100.678 Pending SARS-CoV-2 (COVID 19) Negative INFLUENZA A Negative INFLUENZA B Negative RSV PCR Negative [facility] Comment on above: Performed By: #### M 100.678 ####[facility] [address] [place], [address] MR/PATRICIA.BPon 09-15-2024 MR/PATRICIA.BP [facility] Seismic [employer]ing Supervisor Office Visit Reporton 09-15-2024 Seismic Prospecting Supervisor Office Visit Report Normal [facility] Seismic [employer] Supervisor Office Visit Reporton 09-08-2024 Seismic Prospecting Supervisor Office Visit Report Normal [facility] Seismic [employer] Supervisor Office Visit Reporton 08-30-2024 Seismic Prospecting Supervisor Office Visit Report Normal [facility] Chlamydia/GC MAE aptimaon CHLAMY,NUC ACID Negative Normal Negative [facility] Comment on above: Performed By: #### L 7000.1800, M100.2200 ####[facility] [address] [place], [address] GC BY NUC ACID Negative Normal Negative [facility] Comment on above: Result Comment: Perf ormed at: =G - [facility] [address] [id number] Director: Екатерина Masterson MD, Phone: [phone] Performed By: #### L 7000.1800, M100.2200 ####[facility] [address] [place], [address] Urine Cultureon 08-25-2024 [facility] Mixed Gram Pos Gram Neg Org Supply Count 11,000-25,000 MIXC Mixed contaminants. Submit a new specimen if indicated. Normal [facility] Comment on above: Performed By: #### L 7000.1800, M100.2200 ####[facility] [address] [place], [address] Seismic Prospecting Supervisor Office Visit Reporton 08-23-2024 Seismic Prospecting Supervisor Office Visit Report Normal [facility] CBC W/Diff, Automatedon 07-22 Absolute Lymph 2.06 X10 3/uL Normal 0.83-4.51 [facility] Comment on above: Performed By: #### L 100.0100, L500.4050 ####[facility] [address] [place], [address] Absolute Neut 4.2 X10 3/uL Normal 2.0-7.7 [facility] Comment on above: Performed By: #### L 100.0100, L500.4050 ####[facility] [address] [place], [address] Basophils/100 WBC (Bld) 0.6 % Normal 0-1 [facility] Comment on above: Performed By: #### L 100.0100, L500.4050 ####[facility] [address] [place], [address] Eosinophils/100 WBC (Bld) 3.2 % Normal 0-5 [facility] Comment on above: Performed By: #### L 100.0100, L500.4050 ####[facility] [address] [place], [address] Erythrocyte distribution width (RBC) [Ratio] 13.2 % Normal 11.6-14.6 [facility] Comment on above: Performed By: #### L 100.0100, L500.4050 ####[facility] [address] [place], [address] Hematocrit (Bld) [Volume fraction] 36.3 % Low 37-47 [facility] Comment on above: Performed By: #### L 100.0100, L500.4050 ####[facility] [address] [place], [address] Hemoglobin (Bld) [Mass/Vol] 12.4 g/dL Normal 12.0-15.0 [facility] Comment on above: Performed By: #### L 100.0100, L500.4050 ####[facility] [address] [place], [address] IG% 0.300 Normal 0.0-0.9 [facility] Comment on above: Result Comment: IG% - Immature Granulocytes (promyelocytes, myelocytes andmetamyelocytes) > 1% indicates that a LEFT SHIFT is Present. Performed By: #### L 100.0100, L500.4050 ####[facility] [address] [place], [address] Lymphocytes/100 WBC (Bld) 29.0 % Normal 19-41 [facility] Comment on above: Performed By: #### L 100.0100, L500.4050 ####[facility] [address] [place], [address] MCH (RBC) [Entitic mass] 30.5 pg Normal 27.0-32.0 [facility] Comment on above: Performed By: #### L 100.0100, L500.4050 ####[facility] [address] [place], [address] MCHC (RBC) [Mass/Vol] 34.2 g/dL Normal 32-36 [facility] Comment on above: Performed By: #### L 100.0100, L500.4050 ####[facility] [address] [place], [address] MCV (RBC) [Entitic vol] 89.2 fL Normal 81-99 [facility] Comment on above: Performed By: #### L 100.0100, L500.4050 ####[facility] [address] [place], [address] Monocytes/100 WBC (Bld) 7.3 % Normal 0-10 [facility] Comment on above: Performed By: #### L 100.0100, L500.4050 ####[facility] [address] [place], [address] Neutrophils/100 WBC (Bld) 59.6 % Normal 47-70 [facility] Comment on above: Performed By: #### L 100.0100, L500.4050 ####[facility] [address] [place], [address] Nucleated RBC (Bld) [#/Vol] 0 10*3/uL Normal 0-5 [facility] Comment on above: Performed By: #### L 100.0100, L500.4050 ####[facility] [address] [place], [address] Platelet mean volume (Bld) [Entitic vol] 11.4 fL Normal 6.2-12.0 [facility] Comment on above: Performed By: #### L 100.0100, L500.4050 ####[facility] [address] [place], [address] Platelets (Bld) [#/Vol] 268 10*3/uL Normal 150-450 [facility] Comment on above: Performed By: #### L 100.0100, L500.4050 ####[facility] [address] [place], [address] RBC (Bld) [#/Vol] 4.07 10*6/uL Low 4.2-5.4 [facility] Comment on above: Performed By: #### L 100.0100, L500.4050 ####[facility] [address] [place], [address] RDW SD 42.6 fl Normal 35.1-43.9 [facility] Comment on above: Performed By: #### L 100.0100, L500.4050 ####[facility] [address] [place], [address] WBC (Bld) [#/Vol] 7.1 10*3/uL Normal 4.4-11.0 [facility] Comment on above: Performed By: #### L 100.0100, L500.4050 ####[facility] [address] [place], [address] Comprehensive Metabolic Prof ilon 08-17-2024 Albumin [Mass/Vol] 3.8 g/dL Normal 3.2-5.0 [facility] Comment on above: Performed By: #### L 100.0100, L500.4050 ####[facility] [address] [place], [address] Albumin/Globulin [Mass ratio] 0.9 {ratio} Normal 0.9-2.4 [facility] Comment on above: Performed By: #### L 100.0100, L500.4050 ####[facility] [address] [place], [address] ALK P 80 U/L Normal 45-117 [facility] Comment on above: Performed By: #### L 100.0100, L500.4050 ####[facility] [address] [place], [address] ALT [Catalytic activity/Vol] 17 U/L Normal 13-56 [facility] Comment on above: Performed By: #### L 100.0100, L500.4050 ####[facility] [address] [place], [address] AST [Catalytic activity/Vol] 7 U/L Low 15-37 [facility] Comment on above: Performed By: #### L 100.0100, L500.4050 ####[facility] [address] [place], [address] Bilirubin [Mass/Vol] 0.50 mg/dL Normal 0.20-1.00 [facility] Comment on above: Result Comment: For patients on eltrombopag therapy, use of Dimension [place] TBIL is not recommended. Performed By: #### L 100.0100, L500.4050 ####[facility] [address] [place], [address] BUN/CRE 10.2 RATIO Normal 10-20 [facility] Comment on above: Performed By: #### L 100.0100, L500.4050 ####[facility] [address] [place], [address] CA,Total 9.2 mg/dL Normal 8.5-10.1 [facility] Comment on above: Performed By: #### L 100.0100, L500.4050 ####[facility] [address] [place], [address] Chloride [Moles/Vol] 105 mmol/L Normal 98-107 [facility] Comment on above: Performed By: #### L 100.0100, L500.4050 ####[facility] [address] [place], [address] CO2 [Moles/Vol] 26.0 mmol/L Normal 21.0-32.0 [facility] Comment on above: Performed By: #### L 100.0100, L500.4050 ####[facility] [address] [place], [address] Creatinine [Mass/Vol] 0.88 mg/dL Normal 0.55-1.02 [facility] Comment on above: Result Comment: The validity of the calculated GFR GFRAA in patients over70 years has not been determined. Clinical correlation isessential. Performed By: #### L 100.0100, L500.4050 ####[facility] [address] [place], [address] EST GFR - AA 94 mL/min Normal >60 [facility] Comment on above: Result Comment: Afri can Salvadorean GFR Calc Performed By: #### L 100.0100, L500.4050 ####[facility] [address] [place], [address] GAP 6 Normal 5-15 [facility] Comment on above: Performed By: #### L 100.0100, L500.4050 ####[facility] [address] [place], [address] GFR/1.73 sq M.predicted among non-blacks MDRD (S/P/Bld) [Vol rate/Area] 78 mL/min/{1.73_m2} Normal >60 [facility] Comment on above: Result Comment: Non- GFR Calc Performed By: #### L 100.0100, L500.4050 ####[facility] [address] [place], [address] Globulin (S) [Mass/Vol] 4.1 g/dL Normal 2.2-4.2 [facility] Comment on above: Performed By: #### L 100.0100, L500.4050 ####[facility] [address] [place], [address] Glucose [Mass/Vol] 94 mg/dL Normal 74-106 [facility] Comment on above: Performed By: #### L 100.0100, L500.4050 ####[facility] [address] [place], [address] Potassium [Moles/Vol] 3.6 mmol/L Normal 3.5-5.1 [facility] Comment on above: Performed By: #### L 100.0100, L500.4050 ####[facility] [address] [place], [address] Sodium [Moles/Vol] 137 mmol/L Normal 136-145 [facility] Comment on above: Performed By: #### L 100.0100, L500.4050 ####[facility] [address] [place], [address] T PROT 7.9 g/dL Normal 6.4-8.2 [facility] Comment on above: Performed By: #### L 100.0100, L500.4050 ####[facility] [address] [place], [address] Urea nitrogen [Mass/Vol] 9 mg/dL Normal 7-18 [facility] Comment on above: Performed By: #### L 100.0100, L500.4050 ####[facility] [address] [place], [address] Transvaginal w/Preg USon Transvaginal w/Preg US Normal [facility] hCG Titer Quant., Serumon HCG QUANT. 143 mIU/mL [address] Comment on above: Result Comment: hCG levels with Gestational AgeGestational Age hCG mIU/mL (IU/L)0.2 - 1 week 5 - 501-2 weeks 50 - 5002-3 weeks 100 - 69236-7 weeks 500 - 318235-5 weeks 1000 - 454066-1 weeks 89019 - 100,0006-8 weeks 46643 - 200,0002-3 months 55744 - 100,000 Performed By: #### L 700.8000 ####[facility] [address] [place], [place], [address] hCG Titer Quant., Serumon HCG QUANT. 91 mIU/mL [address] Comment on above: Result Comment: hCG levels with Gestational AgeGestational Age hCG mIU/mL (IU/L)0.2 - 1 week 5 - 501-2 weeks 50 - 5002-3 weeks 100 - 30802-5 weeks 500 - 600349-5 weeks 1000 - 817032-2 weeks 75411 - 100,0006-8 weeks 18444 - 200,0002-3 months 20878 - 100,000 Performed By: #### L 700.8000 ####[facility] [address] [place], [place], [address] hCG Titer Quant., Serumon HCG QUANT. 55 mIU/mL [address] Comment on above: Result Comment: hCG levels with Gestational AgeGestational Age hCG mIU/mL (IU/L)0.2 - 1 week 5 - 501-2 weeks 50 - 5002-3 weeks 100 - 14470-1 weeks 500 - 536622-8 weeks 1000 - 272381-7 weeks 09019 - 100,0006-8 weeks 21663 - 200,0002-3 months 11383 - 100,000 Performed By: #### L 700.8000 ####[facility] [address] [place], [address] MR/BMS.BPon 07-06-2024 MR/BMS.BP Normal [facility] Chest PA and Lateralon 05-24 Chest PA and Lateral Normal [facility] Urgent Care Visit Reporton 1 07-24-2023 Urgent Care Visit Report Normal [facility] Thyroidon 05-13-2024 Thyroid Normal [facility] MR/BMS.BPon 04-28-2024 MR/BMS.BP Normal [facility] Hepatitis B Surface Antibody Ordered By: Background Lab on 02-23-2024 HBV surface Ab Ql (S) Positive Abnormal Negative mIU/mL [facility] Comment on above: Reference value: Unv accinated: Negative Vaccinated: Positive Anti-HBs concentration detected at > or = 11.5 mIU/mL. Individual is considered to be immune to infection with HBV. Hep Bs Antibody, QN 798.00 [facility] Comment on above: Reference Value: > o r = 11.5 mIU/mL - Positive Anti-HBs concentration detected at > or = 11.5 mIU/mL. Individual is considered to be immune to infection with HBV. Interpretation and review of laboratory results Abnormal [facility] Laboratory - Chemistry and C hemistry - challengeOrdered By: Analia Kimbrough on 06-17-2023 HCG ( test) Ql (U) Negative [facility] Comment on above: Very dilute urine sp ecimens, as indicated by a low specificgravity, may not contain airport representative levels of hCG. If is still suspected, a first morning urinespecimen should be collected 48 hours later and tested. Basophil percentageOrdered B y: Analia Kimbrough on 06-13-2023 WBC (Bld) [#/Vol] 8.0 10*3/uL 4.4-11.0 [facility] Blood erythrocytes count (nu mber/volume)Ordered By: Analia Kimbrough on 06-13-2023 RBC (Bld) [#/Vol] 4.16 10*6/uL 4.2-5.4 [facility] Blood hemoglobin measurement (mass/volume)Ordered By: Analia Kimbrough on 06-13-2023 Hemoglobin (Bld) [Mass/Vol] 12.5 g/dL 12.0-15.0 [facility] Blood platelet mean volumeOr dered By: Analia Kimbrough on 06-13-2023 Platelet mean volume (Bld) [Entitic vol] 11.7 fL 6.2-12.0 [facility] Determination of erythrocyte mean corpuscular volume (MCV)Ordered By: Analia Kimbrouhg on 06-13-2023 MCV (RBC) [Entitic vol] 90.9 fL 81-99 [facility] Hematocrit Auto (Bld) [Volum e fraction]Ordered By: Analia Kimbrough on 06-13-2023 Hematocrit (Bld) [Volume fraction] 37.8 % 37-47 [facility] Laboratory - Hematology and Cell countsOrdered By: Analia Kimbrough on 06-13-2023 Erythrocyte distribution width (RBC) [Entitic vol] 40.6 fL 35.1-43.9 [facility] Erythrocyte distribution width (RBC) [Ratio] 12.4 % 11.6-14.6 [facility] MCH (RBC) [Entitic mass] 30.0 pg 27.0-32.0 [facility] MCHC Auto (RBC) [Mass/Vol]Or dered By: Analia Kimbrough on 06-13-2023 MCHC (RBC) [Mass/Vol] 33.1 g/dL 32-36 [facility] Platelets bldOrdered By: Gena Kimbrough on 06-13-2023 Platelets (Bld) [#/Vol] 279 10*3/uL 150-450 [facility] No Panel InformationOrdered By: [facility] on 06-05-2023 Rubella IgG Antibody Reactive Nonreactive [facility] Comment on above: Antibody Results Int erpretation of Immune Status Non Reactive Presumed Non-Immune Equivocal Equivocal Reactive Presumed Immune Serum measles virus IgG anti body assay (units/volume)Ordered By: [employer] on 06-05-2023 MeV IgG Qn (S) 32.0 AU/mL Immune >16.4 [facility] Comment on above: Negative <13.5 Equiv ocal 13.5 - 16.4 Positive >16.4Presence of antibodies to Rubeola is presumptive evidenceof immunity except when acute infection is suspected.Performed at: [facility] [id number] Director: Joseph Doe PhD, Phone: [phone] Serum mumps virus IgG antibo dy assay (units/volume)Ordered By: [employer] on 06-05-2023 MuV IgG Qn (S) 16.1 AU/mL Immune >10.9 [facility] Comment on above: Negative <9.0 Equivo scout 9.0 - 10.9 Positive >10.9A positive result generally indicates past exposure toMumps virus or previous vaccination. Laboratory - Chemistry and C hemistry - challengeon 05-26-2023 HCG ( test) Ql (U) Negative [facility] Laboratory - Chemistry and C hemistry - challengeOrdered By: Saritha Salgado on 04-28-2023 Free T4 [Mass/Vol] 0.90 ng/dL 0.76-1.46 [facility] No Panel InformationOrdered By: Saritha Salgado on 04-28-2023 Thyroid Stimulating Hormone (TSH) 1.16 uIU/mL 0.358-3.74 [facility] Serum or plasma thyroperoxid ase antibody assay (units/volume)Ordered By: Saritha Salgado on 04-28-2023 TPO Ab Qn 23 [IU]/mL 0-34 [facility] Comment on above: Performed at: [address] Director: Joseph Doe PhD, Phone: [phone] Serum or plasma choriogonado tropin detectionOrdered By: Saritha Salgado on 03-18-2023 HCG ( test) Ql 3 mIU/mL <4 [facility] Comment on above: hCG levels with Gest ational AgeGestational Age hCG mIU/mL (IU/L)0.2 - 1 week 5 - 501-2 weeks 50 - 5002-3 weeks 100 - 04425-0 weeks 500 - 457704-0 weeks 1000 - 673304-1 weeks 30103 - 100,0006-8 weeks 37045 - 200,0002-3 months 26291 - 100,000 Serum or plasma choriogonado tropin detectionOrdered By: Saritha Salgado on 03-12-2023 HCG ( test) Ql 4 mIU/mL <4 [facility] Comment on above: hCG levels with Gest ational AgeGestational Age hCG mIU/mL (IU/L)0.2 - 1 week 5 - 501-2 weeks 50 - 5002-3 weeks 100 - 38595-1 weeks 500 - 986172-2 weeks 1000 - 983579-4 weeks 49687 - 100,0006-8 weeks 32677 - 200,0002-3 months 33003 - 100,000 Absolute lymphocyte countOrd ered By: Karey Street on 03-05-2023 Lymphocytes Auto (Unsp spec) [#/Vol] 2.30 10*3/uL 0.83-4.51 [facility] Basophil percentageOrdered B y: Karey Street on 03-05-2023 Basophils/100 WBC (Bld) 0.6 % 0-1 [facility] Eosinophils/100 WBC (Bld) 2.2 % 0-5 [facility] Neutrophils (Bld) [#/Vol] 4.1 10*3/uL 2.0-7.7 [facility] Neutrophils/100 WBC (Bld) 57.4 % 47-70 [facility] WBC (Bld) [#/Vol] 7.2 10*3/uL 4.4-11.0 [facility] Blood erythrocytes count (nu mber/volume)Ordered By: Karey Street on 03-05-2023 RBC (Bld) [#/Vol] 3.84 10*6/uL 4.2-5.4 [facility] Blood hemoglobin measurement (mass/volume)Ordered By: Karey Street on 03-05-2023 Hemoglobin (Bld) [Mass/Vol] 11.5 g/dL 12.0-15.0 [facility] Blood lymphocytes/100 leukoc ytesOrdered By: Karey Street on 03-05-2023 Lymphocytes/100 WBC (Bld) 32.0 % 19-41 [facility] Blood monocytes/100 leukocyt esOrdered By: Karey Street on 03-05-2023 Monocytes/100 WBC (Bld) 7.5 % 0-10 [facility] Blood platelet mean volumeOr dered By: Karey Street on 03-05-2023 Platelet mean volume (Bld) [Entitic vol] 12.0 fL 6.2-12.0 [facility] Determination of erythrocyte mean corpuscular volume (MCV)Ordered By: Karey Street on 03-05-2023 MCV (RBC) [Entitic vol] 94.3 fL 81-99 [facility] Hematocrit Auto (Bld) [Volum e fraction]Ordered By: Karey Street on 03-05-2023 Hematocrit (Bld) [Volume fraction] 36.2 % 37-47 [facility] Laboratory - Hematology and Cell countsOrdered By: Karey Street on 03-05-2023 Erythrocyte distribution width (RBC) [Entitic vol] 43.8 fL 35.1-43.9 [facility] Erythrocyte distribution width (RBC) [Ratio] 12.9 % 11.6-14.6 [facility] Immature granulocytes/100 WBC (Bld) 0.300 % 0.0-0.9 [facility] Comment on above: IG% - Immature Granu locytes (promyelocytes, myelocytes and metamyelocytes) > 1% indicates that a LEFT SHIFT is Present. MCH (RBC) [Entitic mass] 29.9 pg 27.0-32.0 [facility] Nucleated RBC/100 WBC (Bld) [Ratio] 0 % 0-5 [facility] MCHC Auto (RBC) [Mass/Vol]Or dered By: Karey Street on 03-05-2023 MCHC (RBC) [Mass/Vol] 31.8 g/dL 32-36 [facility] Platelets bldOrdered By: [address] on 03-05-2023 Platelets (Bld) [#/Vol] 279 10*3/uL 150-450 [facility] Serum or plasma choriogonado tropin detectionOrdered By: Karey Street on 03-05-2023 HCG ( test) Ql 7 mIU/mL <4 [facility] Serum or plasma choriogonado tropin detectionOrdered By: Karey Street on 02-19-2023 HCG ( test) Ql 36 mIU/mL <4 [facility] Comment on above: hCG levels with Gest ational AgeGestational Age hCG mIU/mL (IU/L)0.2 - 1 week 5 - 501-2 weeks 50 - 5002-3 weeks 100 - 62249-1 weeks 500 - 614560-7 weeks 1000 - 117051-1 weeks 19106 - 100,0006-8 weeks 39549 - 200,0002-3 months 80464 - 100,000 Serum or plasma choriogonado tropin detectionOrdered By: Karey Street on 02-12-2023 HCG ( test) Ql 77 mIU/mL <4 [facility] Comment on above: hCG levels with Gest ational AgeGestational Age hCG mIU/mL (IU/L)0.2 - 1 week 5 - 501-2 weeks 50 - 5002-3 weeks 100 - 21959-7 weeks 500 - 843722-8 weeks 1000 - 567051-9 weeks 82343 - 100,0006-8 weeks 67562 - 200,0002-3 months 31332 - 100,000 Serum or plasma choriogonado tropin detectionOrdered By: Saritha Salgado on 02-05-2023 HCG ( test) Ql 154 mIU/mL <4 [facility] Comment on above: hCG levels with Gest ational AgeGestational Age hCG mIU/mL (IU/L)0.2 - 1 week 5 - 501-2 weeks 50 - 5002-3 weeks 100 - 80907-1 weeks 500 - 009559-3 weeks 1000 - 177305-2 weeks 04636 - 100,0006-8 weeks 16132 - 200,0002-3 months 10108 - 100,000 Serum or plasma choriogonado tropin detectionOrdered By: Saritha Salgado on 01-29-2023 HCG ( test) Ql 361 mIU/mL <4 [facility] Comment on above: hCG levels with Gest ational AgeGestational Age hCG mIU/mL (IU/L)0.2 - 1 week 5 - 501-2 weeks 50 - 5002-3 weeks 100 - 38514-1 weeks 500 - 163628-9 weeks 1000 - 108462-7 weeks 25602 - 100,0006-8 weeks 99371 - 200,0002-3 months 21636 - 100,000 Serum or plasma choriogonado tropin detectionOrdered By: Saritha Salgado on 01-26-2023 HCG ( test) Ql 474 mIU/mL <4 [facility] Comment on above: hCG levels with Gest ational AgeGestational Age hCG mIU/mL (IU/L)0.2 - 1 week 5 - 501-2 weeks 50 - 5002-3 weeks 100 - 36674-7 weeks 500 - 724608-3 weeks 1000 - 439476-1 weeks 04878 - 100,0006-8 weeks 31043 - 200,0002-3 months 05790 - 100,000 Absolute lymphocyte countOrd ered By: Saritha Salgado on 01-23-2023 Lymphocytes Auto (Unsp spec) [#/Vol] 2.41 10*3/uL 0.83-4.51 [facility] Basophil percentageOrdered B y: Saritha Salgado on 01-23-2023 Basophils/100 WBC (Bld) 0.9 % 0-1 [facility] Bilirubin [Mass/Vol] 0.40 mg/dL 0.20-1.00 [facility] Comment on above: For patients on eltr ombopag therapy, use of Dimension [place] TBIL is not recommended. Chloride [Moles/Vol] 105 mmol/L 98-107 [facility] Eosinophils/100 WBC (Bld) 1.8 % 0-5 [facility] Glucose [Mass/Vol] 96 mg/dL 74-106 [facility] Neutrophils (Bld) [#/Vol] 3.6 10*3/uL 2.0-7.7 [facility] Neutrophils/100 WBC (Bld) 54.0 % 47-70 [facility] Potassium [Moles/Vol] 3.9 mmol/L 3.5-5.1 [facility] Protein [Mass/Vol] 7.9 g/dL 6.4-8.2 [facility] Sodium [Moles/Vol] 137 mmol/L 136-145 [facility] WBC (Bld) [#/Vol] 6.7 10*3/uL 4.4-11.0 [facility] Blood erythrocytes count (nu mber/volume)Ordered By: Saritha Salgado on 01-23-2023 RBC (Bld) [#/Vol] 4.09 10*6/uL 4.2-5.4 [facility] Blood hemoglobin measurement (mass/volume)Ordered By: Saritha Salgado on 01-23-2023 Hemoglobin (Bld) [Mass/Vol] 12.4 g/dL 12.0-15.0 [facility] Blood lymphocytes/100 leukoc ytesOrdered By: Saritha Salgado on 01-23-2023 Lymphocytes/100 WBC (Bld) 35.9 % 19-41 [facility] Blood monocytes/100 leukocyt esOrdered By: Saritha Salgado on 01-23-2023 Monocytes/100 WBC (Bld) 7.3 % 0-10 [facility] Blood platelet mean volumeOr dered By: Saritha Salgado on 01-23-2023 Platelet mean volume (Bld) [Entitic vol] 11.6 fL 6.2-12.0 [facility] Determination of erythrocyte mean corpuscular volume (MCV)Ordered By: Saritha Salgado on 01-23-2023 MCV (RBC) [Entitic vol] 91.0 fL 81-99 [facility] Hematocrit Auto (Bld) [Volum e fraction]Ordered By: Saritha Salgado on 01-23-2023 Hematocrit (Bld) [Volume fraction] 37.2 % 37-47 [facility] Laboratory - Chemistry and C hemistry - challengeOrdered By: Saritha Salgado on 01-23-2023 ALP [Catalytic activity/Vol] 82 U/L 45-117 [facility] ALT [Catalytic activity/Vol] 17 U/L 13-56 [facility] CO2 [Moles/Vol] 28.0 mmol/L 21.0-32.0 [facility] Globulin (S) [Mass/Vol] 4.0 g/dL 2.2-4.2 [facility] Urea nitrogen/Creatinine [Mass ratio] 11.0 mg/mg 10-20 [facility] Laboratory - Hematology and Cell countsOrdered By: Saritha Salgado on 01-23-2023 Erythrocyte distribution width (RBC) [Entitic vol] 40.2 fL 35.1-43.9 [facility] Erythrocyte distribution width (RBC) [Ratio] 12.1 % 11.6-14.6 [facility] Immature granulocytes/100 WBC (Bld) 0.100 % 0.0-0.9 [facility] Comment on above: IG% - Immature Granu locytes (promyelocytes, myelocytes and metamyelocytes) > 1% indicates that a LEFT SHIFT is Present. MCH (RBC) [Entitic mass] 30.3 pg 27.0-32.0 [facility] Nucleated RBC/100 WBC (Bld) [Ratio] 0 % 0-5 [facility] Auto (RBC) [Mass/Vol]Or dered By: Saritha Salgado on 01-23-2023 MCHC (RBC) [Mass/Vol] 33.3 g/dL 32-36 [facility] No Panel InformationOrdered By: Saritha Salgado on 01-23-2023 Estimated GFR (MDRD) Amer 119 mL/min >60 [facility] Comment on above: GFR Calc Estimated GFR (MDRD) Non-Af Amer 99 mL/min >60 [facility] Comment on above: Non- GFR Calc Platelets bldOrdered By: Demario Salgado on 01-23-2023 Platelets (Bld) [#/Vol] 272 10*3/uL 150-450 [facility] Serum or plasma albumin rachel urement (mass/volume)Ordered By: Saritha Salgado on 01-23-2023 Albumin [Mass/Vol] 3.9 g/dL 3.2-5.0 [facility] Serum or plasma albumin/glob ulin mass ratioOrdered By: Saritha Salgado on 01-23-2023 Albumin/Globulin [Mass ratio] 1.0 {ratio} 0.9-2.4 [facility] Serum or plasma calcium rachel urement (mass/volume)Ordered By: Saritha Salgado on 01-23-2023 Calcium [Mass/Vol] 8.9 mg/dL 8.5-10.1 [facility] Serum or plasma choriogonado tropin detectionOrdered By: Saritha Salgado on 01-23-2023 HCG ( test) Ql 407 mIU/mL <4 [facility] Comment on above: hCG levels with Gest ational AgeGestational Age hCG mIU/mL (IU/L)0.2 - 1 week 5 - 501-2 weeks 50 - 5002-3 weeks 100 - 45310-5 weeks 500 - 341671-6 weeks 1000 - 142808-0 weeks 55548 - 100,0006-8 weeks 13212 - 200,0002-3 months 34539 - 100,000 Serum or plasma creatinine m easurement (mass/volume)Ordered By: Saritha Salgado on 01-23-2023 Creatinine [Mass/Vol] 0.73 mg/dL 0.55-1.02 [facility] Comment on above: The validity of the calculated GFR & GFRAA in patients over 70 years has not been determined. Clinical correlation is essential. Serum or plasma urea nitroge n measurement (mass/volume)Ordered By: Saritha Salgado on 01-23-2023 Urea nitrogen [Mass/Vol] 8 mg/dL 7-18 [facility] Thin prep Papanicolaou smear with manual screeningOrdered By: Saritha Salgado on 01-23-2023 Thin prep Papanicolaou smear with manual screening 17 U/L 15-37 [facility] Thin prep Papanicolaou smear with manual screening 4 5-15 [facility] Serum or plasma choriogonado tropin detectionOrdered By: Saritha Salgado on 01-22-2023 HCG ( test) Ql 321 mIU/mL <4 [facility] Comment on above: hCG levels with Gest ational AgeGestational Age hCG mIU/mL (IU/L)0.2 - 1 week 5 - 501-2 weeks 50 - 5002-3 weeks 100 - 77002-2 weeks 500 - 801835-9 weeks 1000 - 933315-2 weeks 51267 - 100,0006-8 weeks 42496 - 200,0002-3 months 58894 - 100,000 Serum or plasma choriogonado tropin detectionOrdered By: Saritha Salgado on 01-20-2023 HCG ( test) Ql 233 mIU/mL <4 [facility] Comment on above: hCG levels with Gest ational AgeGestational Age hCG mIU/mL (IU/L)0.2 - 1 week 5 - 501-2 weeks 50 - 5002-3 weeks 100 - 74729-9 weeks 500 - 917784-5 weeks 1000 - 839168-7 weeks 15750 - 100,0006-8 weeks 03676 - 200,0002-3 months 18105 - 100,000 Dilute David's viper venom timeOrdered By: Saritha Salgado on 01-16-2023 dRVVT Coag (PPP) [Time] 38.6 s 0.0-47.0 [facility] No Panel InformationOrdered By: Saritha Salgado on 01-16-2023 Anti-Cardiolipin IgM Antibody < 9 MPL U/mL 0-12 [facility] Comment on above: Negative: <13 Indete rminate: 13 - 20 Low-Med Positive: >20 - 80 High Positive: >80 Serum beta 2 glycoprotein 1 IgA antibody detectionOrdered By: Saritha Salgado on 01-16-2023 Beta 2 glycoprotein 1 IgA Ql (S) <9 0-25 [facility] Comment on above: Result Units: GPI [...] glycoprotein 1 IgG Ql (S) <9 0-20 [facility] Comment on above: Result Units: GPI [...] glycoprotein 1 IgM Ql (S) <9 0-32 [facility] Comment on above: Result Units: GPI Ig M unitsThe reference interval reflects a 3SD or 99th percentileinterval, which is thought to represent a potentiallyclinically significant result in accordance with theInternational Consensus Statement on the classificationcriteria for definitive antiphospholipid syndrome (APS). JThromb Haem 2006;4:295-306.Performed at: [facility] [address] [id number] Director: Nae Mendiola MD, Phone: [phone] at: [facility] [address] [id number] Director: Joseph Doe PhD, Phone: [phone] Serum cardiolipin IgG antibo dy assay by immunoassay (units/volume)Ordered By: Saritha Salgado on 01-16-2023 Cardiolipin IgG IA Qn (S) < 9 GPL U/mL 0-14 [facility] Comment on above: Negative: <15 Indete rminate: 15 - 20 Low-Med Positive: >20 - 80 High Positive: >80 Serum or plasma cardiolipin IgA antibody assay (units/volume)Ordered By: Saritha Salgado on 01-16-2023 Cardiolipin IgA Qn < 9 APL U/mL 0-11 [facility] Comment on above: Negative: <12 Indete rminate: 12 - 20 Low-Med Positive: >20 - 80 High Positive: >80 Thin prep Papanicolaou smear with manual screeningOrdered By: Saritha Salgado on 01-16-2023 Thin prep Papanicolaou smear with manual screening 37.8 sec 0.0-47.6 [facility] Thin prep Papanicolaou smear with manual screening 0.97 Ratio 0.00-1.34 [facility] Thin prep Papanicolaou smear with manual screening 35.1 sec 0.0-43.5 [facility] Thin prep Papanicolaou smear with manual screening Comment: . [facility] Comment on above: No lupus anticoagula nt was detected. Thrombin time in platelet po or plasmaOrdered By: Saritha Salgado on 01-16-2023 Thrombin time Coag (PPP) [Time] 17.0 sec 0.0-23.0 [facility] Serum or plasma choriogonado tropin detectionOrdered By: Saritha Salgado on 01-14-2023 HCG ( test) Ql 154 mIU/mL <4 [facility] Comment on above: hCG levels with Gest ational AgeGestational Age hCG mIU/mL (IU/L)0.2 - 1 week 5 - 501-2 weeks 50 - 5002-3 weeks 100 - 36618-2 weeks 500 - 776324-7 weeks 1000 - 058963-0 weeks 79894 - 100,0006-8 weeks 01331 - 200,0002-3 months 49375 - 100,000 Serum or plasma choriogonado tropin detectionOrdered By: Saritha Salgado on 01-12-2023 HCG ( test) Ql 122 mIU/mL <4 [facility] Comment on above: hCG levels with Gest ational AgeGestational Age hCG mIU/mL (IU/L)0.2 - 1 week 5 - 501-2 weeks 50 - 5002-3 weeks 100 - 92746-3 weeks 500 - 955434-6 weeks 1000 - 120878-7 weeks 50918 - 100,0006-8 weeks 44273 - 200,0002-3 months 78269 - 100,000 Serum or plasma choriogonado tropin detectionOrdered By: Karey Street on 11-04-2022 HCG ( test) Ql < 1 mIU/mL <4 [facility] Comment on above: hCG levels with Gest ational AgeGestational Age hCG mIU/mL (IU/L)0.2 - 1 week 5 - 501-2 weeks 50 - 5002-3 weeks 100 - 87959-6 weeks 500 - 842350-5 weeks 1000 - 801873-8 weeks 28162 - 100,0006-8 weeks 70731 - 200,0002-3 months 42055 - 100,000 Serum or plasma choriogonado tropin detectionOrdered By: Dr. Kimbrough on 10-31-2022 HCG ( test) Ql < 1 mIU/mL <4 [facility] Comment on above: hCG levels with Gest ational AgeGestational Age hCG mIU/mL (IU/L)0.2 - 1 week 5 - 501-2 weeks 50 - 5002-3 weeks 100 - 37366-5 weeks 500 - 486932-9 weeks 1000 - 387831-1 weeks 26746 - 100,0006-8 weeks 61150 - 200,0002-3 months 15033 - 100,000 Laboratory - Microbiology an d Antimicrobial susceptibilityon 09-23-2022 SARS-CoV-2 (COVID-19) RNA MAE+probe Ql (Unsp spec) Not detected [facility] No Panel Informationon 09-23 POC Nasal Swab Influenza A,B Not detected [facility] POC Nasal Swab RSV Not detected [facility] No Panel Informationon 05-24 Miscellaneous Test Comment MAILED SPECIMEN [facility] Work Phone: Laboratory - Chemistry and C hemistry - challengeon 04-15-2022 Free T4 [Mass/Vol] 0.91 ng/dL 0.76-1.46 [facility] Work Phone: No Panel Informationon 04-15 Thyroid Stimulating Hormone (TSH) 0.99 uIU/mL 0.358-3.74 [facility] Work Phone: Serum or plasma thyroperoxid ase antibody assay (units/volume)on 04-15-2022 TPO Ab Qn 15 [IU]/mL 0-34 [facility] Work Phone: Comment on above: Performed at: [facility] [address] [id number] Director: Joseph Doe PhD, Phone: [phone] Basophil percentageon 2021 WBC (Bld) [#/Vol] 9.9 10*3/uL 4.4-11.0 [facility] Work Phone: Blood erythrocytes count (nu mber/volume)on 02-26-2022 RBC (Bld) [#/Vol] 3.04 10*6/uL 4.2-5.4 [facility] Work Phone: Blood hemoglobin measurement (mass/volume)on 02-26-2022 Hemoglobin (Bld) [Mass/Vol] 9.6 g/dL 12.0-15.0 [facility] Work Phone: Blood platelet mean volumeon 02-26-2022 Platelet mean volume (Bld) [Entitic vol] 11.4 fL 6.2-12.0 [facility] Work Phone: Determination of erythrocyte mean corpuscular volume (MCV)on 02-26-2022 MCV (RBC) [Entitic vol] 94.4 fL 81-99 [facility] Work Phone: Dilute David's viper venom timeon 02-26-2022 dRVVT Coag (PPP) [Time] 32.2 s 0.0-47.0 [facility] Work Phone: Hematocrit Auto (Bld) [Volum e fraction]on 02-26-2022 Hematocrit (Bld) [Volume fraction] 28.7 % 37-47 [facility] Work Phone: Laboratory - Hematology and Cell countson 02-26-2022 Erythrocyte distribution width (RBC) [Entitic vol] 48.1 fL 35.1-43.9 [facility] Work Phone: Erythrocyte distribution width (RBC) [Ratio] 14.7 % 11.6-14.6 [facility] Work Phone: MCH (RBC) [Entitic mass] 31.6 pg 27.0-32.0 [facility] Work Phone: MCHC Auto (RBC) [Mass/Vol]on 02-26-2022 MCHC (RBC) [Mass/Vol] 33.4 g/dL 32-36 [facility] Work Phone: No Panel Informationon 02-26 Anti-Cardiolipin IgM Antibody < 9 MPL U/mL 0-12 [facility] Work Phone: Comment on above: Negative: <13 Indete rminate: 13 - 20 Low-Med Positive: >20 - 80 High Positive: >80 Thyroid Stimulating Hormone (TSH) 1.80 uIU/mL 0.358-3.74 [facility] Work Phone: Toxoplasma Comment Comment . [facility] Work Phone: Comment on above: It is presumed the p atient has not been infected with andis not undergoing an acute infection with Toxoplasma. Ifsymptoms persist, submit a new specimen after three weeks. Platelets bldon 02-26-2022 Platelets (Bld) [#/Vol] 175 10*3/uL 150-450 [facility] Work Phone: Serum Parvovirus B19 IgG ant ibody assay by immunoassay (units/volume)on 02-26-2022 Parvovirus B19 IgG IA Qn (S) 0.6 index 0.0-0.8 [facility] Work Phone: Comment on above: Negative <0.9 Equivo scout 0.9 - 1.1 Positive >1.1 Serum Parvovirus B19 IgM ant ibody assay by immunoassay (units/volume)on 02-26-2022 Parvovirus B19 IgM IA Qn (S) 0.3 index 0.0-0.8 [facility] Work Phone: Comment on above: Negative <0.9 Equivo scout 0.9 - 1.1 Positive >1.1 Serum Toxoplasma gondii IgG antibody assay (units/volume)on 02-26-2022 T. gondii IgG Qn (S) < 3.0 IU/mL 0.0-7.1 [facility] Work Phone: Comment on above: Negative <7.2 Equivo scout 7.2 - 8.7 Positive >8.7Performed at: [place] [id number] [place], [place] [id number] Director: Joseph Doe PhD, Phone: [phone] Serum Toxoplasma gondii IgM antibody assay by immunoassay (units/volume)on 02-26-2022 T. gondii IgM IA Qn (S) < 3.0 AU/mL 0.0-7.9 [facility] Work Phone: Comment on above: Negative <8.0 Equivo scout 8.0 - 9.9 Positive >9.9 Serum beta 2 glycoprotein 1 IgA antibody detectionon 02-26-2022 Beta 2 glycoprotein 1 IgA Ql (S) <9 0-25 [facility] Work Phone: Comment on above: Result [...] glycoprotein 1 IgG Ql (S) <9 0-20 [facility] Work Phone: Comment on above: Result [...] glycoprotein 1 IgM Ql (S) <9 0-32 [facility] Work Phone: Comment on above: Result [...] Qn (S) < 9 GPL U/mL 0-14 [facility] Work Phone: Comment on above: Negative: <15 Indete rminate: 15 - 20 Low-Med Positive: >20 - 80 High Positive: >80 Serum or plasma cardiolipin IgA antibody assay (units/volume)on 02-26-2022 Cardiolipin IgA Qn < 9 APL U/mL 0-11 [facility] Work Phone: Comment on above: Negative: <12 Indete rminate: 12 - 20 Low-Med Positive: >20 - 80 High Positive: >80 Serum or plasma cytomegalovi jong (CMV) IgG antibody assay (units/volume)on 02-26-2022 CMV IgG Qn < 0.60 U/mL 0.00-0.59 [facility] Work Phone: Comment on above: Negative <0.60 Equiv ocal 0.60 - 0.69 Positive >0.69 Serum or plasma cytomegalovi jong (CMV) IgM antibody assay (units/volume)on 02-26-2022 CMV IgM Qn < 30.0 AU/mL 0.0-29.9 [facility] Work Phone: Comment on above: Negative <30.0 Equiv ocal 30.0 - 34.9 Positive >34.9A positive result is generally indicative of acuteinfection, reactivation or persistent IgM production.Performed at: [address] [id number] Director: Nae Mendiola MD, Phone: [phone] at: [address] [id number] Director: Joseph Doe PhD, Phone: [phone] Thin prep Papanicolaou smear with manual screeningon 02-26-2022 Thin prep Papanicolaou smear with manual screening 34.7 sec 0.0-47.6 [facility] Work Phone: Thin prep Papanicolaou smear with manual screening 1.19 Ratio 0.00-1.34 [facility] Work Phone: Thin prep Papanicolaou smear with manual screening 37.1 sec 0.0-51.9 [facility] Work Phone: Thin prep Papanicolaou smear with manual screening Comment: . [facility] Work Phone: Comment on above: No lupus anticoagula nt was detected. Thrombin time in platelet po or plasmaon 02-26-2022 Thrombin time Coag (PPP) [Time] 17.0 sec 0.0-23.0 [facility] Work Phone: Whole blood hemoglobin A1c/t otal hemoglobin ratio (mass fraction)on 02-26-2022 HbA1c (Bld) [Mass fraction] % 3.8-5.6 [facility] Work Phone: Comment on above: Normal < 5.7 % Predi abetic 5.7 - 6.4 % Diabetic >or= 6.5 % Please note range changes. INR in Blood by Coagulation assayon 02-25-2022 INR Coag (Bld) [Relative time] 1.1 {INR} [facility] Work Phone: Laboratory - Coagulationon 0 02-25-2022 aPTT Coag (Bld) [Time] 27.7 s 24.1-36.2 [facility] Work Phone: PT Coag (PPP) [Time] 14.1 s 11.7-14.9 [facility] Work Phone: No Panel Informationon 02-25 Fibrinogen 320 mg/dl 203-444 [facility] Work Phone: Kleihauer-Betke Hemoglobin (L Positive [facility] Work Phone: Comment on above: Kleihauer Betke Stud y Reference: Negative POSITIVE AB* Feto-maternal hemorrhage ( RBCs): 127.5 mL. TESTING PERFORMED AT [facility]. ORIGINAL REPORT ON FILE IN LAB CONTAINS ADDITIONAL TEST SITE INFORMATION. ____ Laboratory - Chemistry and C hemistry - challengeon 02-22-2022 Glucose Ql (U) Negative [facility] Work Phone: Laboratory - Urinalysison Protein Ql (U) Negative [facility] Work Phone: Absolute lymphocyte counton 02-18-2022 Lymphocytes Auto (Unsp spec) [#/Vol] 1.57 10*3/uL 0.83-4.51 [facility] Work Phone: Basophil percentageon 2021 Basophils/100 WBC (Bld) 0.4 % 0-1 [facility] Work Phone: Eosinophils/100 WBC (Bld) 0.6 % 0-5 [facility] Work Phone: Neutrophils (Bld) [#/Vol] 4.9 10*3/uL 2.0-7.7 [facility] Work Phone: Neutrophils/100 WBC (Bld) 69.7 % 47-70 [facility] Work Phone: WBC (Bld) [#/Vol] 7.1 10*3/uL 4.4-11.0 [facility] Work Phone: Blood erythrocytes count (nu mber/volume)on 02-18-2022 RBC (Bld) [#/Vol] 3.42 10*6/uL 4.2-5.4 [facility]: Blood hemoglobin measurement (mass/volume)on 02-18-2022 Hemoglobin (Bld) [Mass/Vol] 10.7 g/dL 12.0-15.0 [facility] Work Phone: Blood lymphocytes/100 leukoc yteson 02-18-2022 Lymphocytes/100 WBC (Bld) 22.2 % 19-41 [facility] Work Phone: Blood monocytes/100 leukocyt eson 02-18-2022 Monocytes/100 WBC (Bld) 6.4 % 0-10 [facility] Work Phone: Blood platelet mean volumeon 02-18-2022 Platelet mean volume (Bld) [Entitic vol] 11.5 fL 6.2-12.0 [facility] Work Phone: Determination of erythrocyte mean corpuscular volume (MCV)on 02-18-2022 MCV (RBC) [Entitic vol] 93.6 fL 81-99 [facility] Work Phone: Hematocrit Auto (Bld) [Volum e fraction]on 02-18-2022 Hematocrit (Bld) [Volume fraction] 32.0 % 37-47 [facility] Work Phone: Laboratory - Hematology and Cell countson 02-18-2022 Erythrocyte distribution width (RBC) [Entitic vol] 47.8 fL 35.1-43.9 [facility] Work Phone: Erythrocyte distribution width (RBC) [Ratio] 14.5 % 11.6-14.6 [facility] Work Phone: Immature granulocytes/100 WBC (Bld) 0.700 % 0.0-0.9 [facility] Work Phone: Comment on above: IG% - Immature Granu locytes (promyelocytes, myelocytes and metamyelocytes) > 1% indicates that a LEFT SHIFT is Present. MCH (RBC) [Entitic mass] 31.3 pg 27.0-32.0 [facility] Work Phone: Nucleated RBC/100 WBC (Bld) [Ratio] 0 % 0-5 [facility] Work Phone: MCHC Auto (RBC) [Mass/Vol]on 02-18-2022 MCHC (RBC) [Mass/Vol] 33.4 g/dL 32-36 [facility] Work Phone: Platelets bldon 02-18-2022 Platelets (Bld) [#/Vol] 166 10*3/uL 150-450 [facility] Work Phone: Laboratory - Chemistry and C hemistry - challengeon 02-15-2022 Glucose Ql (U) Negative [facility] Work Phone: Laboratory - Urinalysison Protein Ql (U) Negative [facility] Work Phone: Laboratory - Chemistry and C hemistry - challengeon 02-01-2022 Glucose Ql (U) Negative [facility] Work Phone: Laboratory - Urinalysison Protein Ql (U) Negative [facility] Work Phone: Laboratory - Chemistry and C hemistry - challengeon 01-18-2022 Glucose Ql (U) Negative [facility] Work Phone: Laboratory - Urinalysison Protein Ql (U) Negative [facility] Work Phone: Laboratory - Microbiology an d Antimicrobial susceptibilityon 01-13-2022 SARS-CoV-2 (COVID-19) RNA MAE+probe Ql (Unsp spec) Detected [facility] Work Phone: No Panel Informationon 01-13 Influenza Types A,B Rapid (Clinic) Not detected [facility] Work Phone: Laboratory - Microbiology an d Antimicrobial susceptibilityon 01-06-2022 SARS-CoV-2 (COVID-19) RNA MAE+probe Ql (Unsp spec) Not detected [facility] Work Phone: No Panel Informationon 01-06 POC Nasal Swab Influenza A,B Not detected [facility] Work Phone: POC Nasal Swab RSV Not detected [facility] Work Phone: Basophil percentageon 2021 WBC (Bld) [#/Vol] 7.7 10*3/uL 4.4-11.0 [facility] Work Phone: Blood erythrocytes count (nu mber/volume)on 12-07-2021 RBC (Bld) [#/Vol] 3.23 10*6/uL 4.2-5.4 [facility] Work Phone: Blood hemoglobin measurement (mass/volume)on 12-07-2021 Hemoglobin (Bld) [Mass/Vol] 10.3 g/dL 12.0-15.0 [facility] Work Phone: Blood platelet mean volumeon 12-07-2021 Platelet mean volume (Bld) [Entitic vol] 11.4 fL 6.2-12.0 [facility] Work Phone: Determination of erythrocyte mean corpuscular volume (MCV)on 12-07-2021 MCV (RBC) [Entitic vol] 94.7 fL 81-99 [facility] Work Phone: Gestational diabetes screen 1-hour screen with 50g oral glucose loadon 12-07-2021 Glucose 1 Hr post 50 g glucose PO [Mass/Vol] 145 mg/dL 70-140 [facility] Work Phone: Hematocrit Auto (Bld) [Volum e fraction]on 12-07-2021 Hematocrit (Bld) [Volume fraction] 30.6 % 37-47 [facility] Work Phone: Laboratory - Hematology and Cell countson 12-07-2021 Erythrocyte distribution width (RBC) [Entitic vol] 42.0 fL 35.1-43.9 [facility] Work Phone: Erythrocyte distribution width (RBC) [Ratio] 12.1 % 11.6-14.6 [facility] Work Phone: MCH (RBC) [Entitic mass] 31.9 pg 27.0-32.0 [facility] Work Phone: MCHC Auto (RBC) [Mass/Vol]on 12-07-2021 MCHC (RBC) [Mass/Vol] 33.7 g/dL 32-36 [facility] Work Phone: Platelets bldon 12-07-2021 Platelets (Bld) [#/Vol] 240 10*3/uL 150-450 [facility] Work Phone: Laboratory - Hematology and Cell countson 11-27-2021 Hematocrit (Bld) [Volume fraction] 30.6 % [facility] Work Phone: MCV (RBC) [Entitic vol] 94.7 fL [facility] Work Phone: No Panel Informationon 11-27 Platelet Count (Clinic) 240 g/gL [facility] Work Phone: Iron measurement (mass/mass) on 09-07-2021 Iron (Unsp spec) [Mass/Mass] 47 ug/dL 50-170 [facility] Work Phone: No Panel Informationon 09-07 Total Iron Binding Capacity 342 ug/dL 250-450 [facility] Work Phone: Serum or plasma ferritin lakshmi surement (mass/volume)on 09-07-2021 Ferritin [Mass/Vol] 19 ng/mL 8-252 [facility] Work Phone: Basophil percentageon 2021 Chloride [Moles/Vol] 102 mmol/L 98-[address] [facility] Work Phone: Glucose [Mass/Vol] 78 mg/dL 74-106 [facility] Work Phone: Potassium [Moles/Vol] 3.6 mmol/L 3.5-5.1 [facility] Work Phone: Sodium [Moles/Vol] 135 mmol/L 136-145 [facility] Work Phone: Laboratory - Chemistry and C hemistry - challengeon 08-22-2021 CO2 [Moles/Vol] 27.0 mmol/L 21.0-32.0 [facility] Work Phone: Urea nitrogen/Creatinine [Mass ratio] 18.7 mg/mg 10-20 [facility] Work Phone: No Panel Informationon 08-22 Estimated GFR (MDRD) Amer 127 mL/min >60 [facility] Work Phone: Comment on above: GFR Calc Estimated GFR (MDRD) Non-Af Amer 105 mL/min >60 [facility] Work Phone: Comment on above: Non- GFR Calc Serum or plasma calcium rahcel urement (mass/volume)on 08-22-2021 Calcium [Mass/Vol] 8.9 mg/dL 8.5-10.1 [facility] Work Phone: Serum or plasma creatinine m easurement (mass/volume)on 08-22-2021 Creatinine [Mass/Vol] 0.70 mg/dL 0.55-1.02 [facility] Work Phone: Comment on above: The validity of the calculated GFR & GFRAA in patients over 70 years has not been determined. Clinical correlation is essential. Serum or plasma urea nitroge n measurement (mass/volume)on 08-22-2021 Urea nitrogen [Mass/Vol] 13 mg/dL 7-18 [facility] Work Phone: Thin prep Papanicolaou smear with manual screeningon 08-22-2021 Thin prep Papanicolaou smear with manual screening 6 5-15 [facility] Work Phone: Basophil percentageon 2021 Chloride [Moles/Vol] 104 mmol/L 98-107 [facility] Work Phone: Glucose [Mass/Vol] 87 mg/dL 74-106 [facility] Work Phone: Potassium [Moles/Vol] 3.7 mmol/L 3.5-5.1 [facility] Work Phone: Sodium [Moles/Vol] 136 mmol/L 136-145 [facility] Work Phone: Basophil percentage 10-25 SEEN /hpf [facility] Work Phone: Bilirubin Test strip Ql (U)o n 08-20-2021 Bilirubin Ql (U) Negative Negative [facility] Work Phone: Culture, urineon 08-20-2021 Bacteria identified Cx Nom (U) Positive [facility] Work Phone: Ketones Test strip Ql (U)on 08-20-2021 Ketones Ql (U) 50 mg/dl Negative [facility] Work Phone: Laboratory - Chemistry and C hemistry - challengeon 08-20-2021 CO2 [Moles/Vol] 27.0 mmol/L 21.0-32.0 [facility] Work Phone: Urea nitrogen/Creatinine [Mass ratio] 16.4 mg/mg 10-20 [facility] Work Phone: Mucus LM Ql (Urine sed)on Mucus Ql (Urine sed) 0 SEEN /hpf [facility] Work Phone: Nitrite Test strip Ql (U)on 08-20-2021 Nitrite Ql (U) Negative Negative [facility] Work Phone: No Panel Informationon 08-20 Estimated Creatinine Clearance Calc 85.03 ml/min [facility] Work Phone: Estimated GFR (MDRD) Amer 119 mL/min >60 [facility] Work Phone: Comment on above: GFR Calc Estimated GFR (MDRD) Non-Af Amer 99 mL/min >60 [facility] Work Phone: Comment on above: Non- GFR Calc Protein Test strip Ql (U)on 08-20-2021 Protein Ql (U) 15 mg/dl Negative [facility] Work Phone: Serum or plasma calcium rachel urement (mass/volume)on 08-20-2021 Calcium [Mass/Vol] 9.6 mg/dL 8.5-10.1 [facility] Work Phone: Serum or plasma creatinine m easurement (mass/volume)on 08-20-2021 Creatinine [Mass/Vol] 0.73 mg/dL 0.55-1.02 [facility] Work Phone: Comment on above: The validity of the calculated GFR & GFRAA in patients over 70 years has not been determined. Clinical correlation is essential. Serum or plasma urea nitroge n measurement (mass/volume)on 08-20-2021 Urea nitrogen [Mass/Vol] 12 mg/dL 7-18 [facility] Work Phone: Squamous epithelial cells de tection in urine sediment by light microscopyon 08-20-2021 Epithelial cells.squamous LM Ql (Urine sed) 5-10 SEEN /hpf [facility] Work Phone: Thin prep Papanicolaou smear with manual screeningon 08-20-2021 Thin prep Papanicolaou smear with manual screening 5 5-15 [facility] Work Phone: Urine blood detectionon 07-23 RBC Ql (U) Negative Negative [facility] Work Phone: RBC Ql (U) 0 SEEN /hpf [facility] Work Phone: Urine clarityon 08-20-2021 Clarity (U) Sl. Cloudy Clear [facility] Work Phone: Urine color determinationon 08-20-2021 Color (U) Yellow Yellow [facility] Work Phone: Urine glucose detectionon Glucose Ql (U) Normal mg/dl Normal [facility] Work Phone: Urine leukocyte esterase det ection by dipstickon 08-20-2021 Leukocyte esterase Test strip Ql (U) 100 /ul Negative [facility] Work Phone: Urine pHon 08-20-2021 pH (U) 6.5 [pH] [facility] Work Phone: Urine sediment bacteria coun t by microscopy (number/high power field)on 08-20-2021 Bacteria LM.HPF (Urine sed) [#/Area] 3 /[HPF] None Seen [facility] Work Phone: Urine specific gravity measu rementon 08-20-2021 Specific gravity (U) [Rel density] 1.020 [facility] Work Phone: Urobilinogen Auto test strip Ql (U)on 08-20-2021 Urobilinogen Ql (U) Normal mg/dl Normal [facility] Work [facility]: No Panel Information Group B Streptococcus Culture Group B Beta Streptococcus is not isolated. [facility] Work Phone: Vital Signs Date Time Vital Sign Value Performing Clinician Faci lity 01-27-2025 12:35-0400 Body temperature 98.4 [degF] Alejandra [employer] Work Phone: [facility] [employer] 01-27-2025 12:35-0400 Diastolic blood pressure 66 mm[Hg] Alejandra [employer] Work Phone: [facility] [employer] 01-27-2025 12:35-0400 Heart rate 77 /min [employer] Work Phone: [facility] [employer] 01-27-2025 12:35-0400 Respiratory rate 16 /min [employer] Work Phone: [facility] [employer] 01-27-2025 12:35-0400 SaO2% (BldA) [Mass fraction] 100 % Alejandra [employer] Work Phone: [facility] [employer] 01-27-2025 12:35-0400 Systolic blood pressure 97 mm[Hg] Alejandra [employer] Work Phone: [employer] 01-27-2025 03:17-0400 Body height 157.5 cm Alejandra [employer] Work Phone: [facility] [employer] 01-27-2025 03:17-0400 Body mass index (BMI) [Ratio] 24.69 kg/m2 Alejandra [employer] Phone: [facility] [employer] 01-27-2025 03:17-0400 Body weight 61.24 kg Alejandra Tena DO Work Phone: [facility] [employer] 06-17-2023 18:00-0500 Body temperature 98.2 [degF] No Primary Care Physician [facility] 06-17-2023 18:00-0500 Diastolic blood pressure 60 mm[Hg] No Primary Care Physician [facility] 06-17-2023 18:00-0500 Heart rate 65 /min No Primary Care Physician [facility] 06-17-2023 18:00-0500 Respiratory rate 18 /min No Primary Care Physician [facility] 06-17-2023 18:00-0500 SaO2% (BldA) [Mass fraction] 97 % No Primary Care Physician [facility] 06-17-2023 18:00-0500 Systolic blood pressure 101 mm[Hg] No Primary Care Physician [facility] 06-17-2023 13:35-0500 Body height 154.94 cm No Primary Care Physician [facility] 06-17-2023 13:35-0500 Body mass index (BMI) [Ratio] 30.2 kg/m2 No Primary Care Physician [facility] 06-17-2023 13:35-0500 Body weight 72.5 kg No Primary Care Physician [facility] 05-26-2023 13:40-0500 Body mass index (BMI) [Ratio] 29.7 kg/m2 No Primary Care Physician [facility] 05-26-2023 13:40-0500 Body weight 71.27 kg No Primary Care Physician [facility] [facility] 05-26-[facility]23 13:40-0500 Diastolic blood pressure 82 mm[Hg] No Primary Care Physician [facility] 05-26-2023 13:40-0500 Systolic blood pressure 120 mm[Hg] No Primary Care Physician [facility] 04-17-2023 11:46-0400 Body height 154.94 cm No Primary Care Physician [facility] 04-17-2023 11:38-0400 Body mass index (BMI) [Ratio] 29.2 kg/m2 No Primary Care Physician [facility] 04-17-2023 11:38-0400 Body weight 70.36 kg No Primary Care Physician [facility] 04-17-2023 11:38-0400 Diastolic blood pressure 72 mm[Hg] No Primary Care Physician [facility] 04-17-2023 11:38-0400 Systolic blood pressure 109 mm[Hg] No Primary Care Physician [facility] 01-23-2023 09:55-0400 Body height 154.94 cm No Primary Care Physician [facility] 01-23-2023 09:54-0400 Diastolic blood pressure 73 mm[Hg] No Primary Care Physician [facility] 01-23-2023 09:54-0400 Systolic blood pressure 114 mm[Hg] No Primary Care Physician [facility] 10-17-2022 09:05-0400 Body height 154.94 cm No Primary Care Physician [facility] 10-17-2022 09:05-0400 Body temperature 98.5 [degF] No Primary Care Physician [facility] 10-17-2022 09:05-0400 Diastolic blood pressure 68 mm[Hg] No Primary Care Physician [facility] 10-17-2022 09:05-0400 Heart rate 83 /min No Primary Care Physician [facility] 10-17-2022 09:05-0400 SaO2% (BldA) [Mass fraction] 95 % No Primary Care Physician [facility] 10-17-2022 09:05-0400 Systolic blood pressure 98 mm[Hg] No Primary Care Physician [facility] 09-09-2022 09:53-0500 Body temperature 97.6 [degF] No Primary Care Physician [facility] 09-09-2022 09:53-0500 Diastolic blood pressure 72 mm[Hg] No Primary Care Physician [facility] 09-09-2022 09:53-0500 Heart rate 78 /min No Primary Care Physician [facility] 09-09-2022 09:53-0500 Respiratory rate 16 /min No Primary Care Physician [facility] 09-09-2022 09:53-0500 SaO2% (BldA) [Mass fraction] 98 % No Primary Care Physician [facility] 09-09-2022 09:53-0500 Systolic blood pressure 102 mm[Hg] No Primary Care Physician [facility] 08-02-2022 15:45-0500 Body mass index (BMI) [Ratio] 28.9 kg/m2 No Primary Care Physician [facility] 08-02-2022 15:45-0500 Body weight 69.39 kg No Primary Care Physician [facility] 08-02-2022 15:45-0500 Diastolic blood pressure 78 mm[Hg] No Primary Care Physician [facility] 08-02-2022 15:45-0500 Systolic blood pressure 118 mm[Hg] No Primary Care Physician [facility] 05-13-2022 09:26-0400 Body height 154.94 cm No Primary Care Physician [facility] Work Phone: 05-13-2022 09:26-0400 Body mass index (BMI) [Ratio] 27.8 kg/m2 No Primary Care Physician [facility] Work Phone: 05-13-2022 09:26-0400 Body temperature 97.6 [degF] No Primary Care Physician [facility] Work Phone: 05-13-2022 09:26-0400 Body weight 66.67 kg No Primary Care Physician [facility] Work Phone: 05-13-2022 09:26-0400 Diastolic blood pressure 71 mm[Hg] No Primary Care Physician [facility] Work Phone: 05-13-2022 09:26-0400 Heart rate 86 /min No Primary Care Physician [facility] Work Phone: 05-13-2022 09:26-0400 Respiratory rate 16 /min No Primary Care Physician [facility] Work Phone: 05-13-2022 09:26-0400 SaO2% (BldA) [Mass fraction] 94 % No Primary Care Physician [facility] Work Phone: 05-13-2022 09:26-0400 Systolic blood pressure 108 mm[Hg] No Primary Care Physician [facility] Work Phone: 04-15-2022 15:52-0400 Body height 154.94 cm No Primary Care Physician [facility] Work Phone: 04-15-2022 15:52-0400 Body mass index (BMI) [Ratio] 27.4 kg/m2 No Primary Care Physician [facility] Work Phone: 04-15-2022 15:52-0400 Body weight 68.03 kg No Primary Care Physician [facility] Work Phone: 04-15-2022 15:52-0400 Diastolic blood pressure 75 mm[Hg] No Primary Care Physician [facility] Work Phone: 04-15-2022 15:52-0400 Systolic blood pressure 119 mm[Hg] No Primary Care Physician [facility] Work Phone: 03-12-2022 11:54-0400 Body mass index (BMI) [Ratio] 27.4 kg/m2 No Primary Care Physician [facility] Work Phone: 03-12-2022 11:54-0400 Body weight 68.03 kg No Primary Care Physician [facility] Work Phone: 03-12-2022 11:54-0400 Diastolic blood pressure 64 mm[Hg] No Primary Care Physician [facility] Work Phone: 03-12-2022 11:54-0400 Systolic blood pressure 102 mm[Hg] No Primary Care Physician [facility] Work Phone: 02-26-2022 16:45-0400 Body temperature 97.8 [degF] No Primary Care Physician [facility] Work Phone: 02-26-2022 16:45-0400 Diastolic blood pressure 58 mm[Hg] No Primary Care Physician [facility] Work Phone: 02-26-2022 16:45-0400 Heart rate 81 /min No Primary Care Physician [facility] Work Phone: 02-26-2022 16:45-0400 Respiratory rate 16 /min No Primary Care Physician [facility] Work Phone: 02-26-2022 16:45-0400 SaO2% (BldA) [Mass fraction] 98 % No Primary Care Physician [facility] Work Phone: 02-26-2022 16:45-0400 Systolic blood pressure 95 mm[Hg] No Primary Care Physician [facility] Work Phone: 02-25-2022 10:35-0400 Body height 154.94 cm No Primary Care Physician [facility] Work Phone: 02-25-2022 10:35-0400 Body mass index (BMI) [Ratio] 30.2 kg/m2 No Primary Care Physician [facility] Work Phone: 02-25-2022 10:35-0400 Body weight 72.57 kg No Primary Care Physician [facility] Work Phone: 02-22-2022 13:49-0400 Body height 154.94 cm No Primary Care Physician [facility] Work Phone: 02-22-2022 13:49-0400 Body mass index (BMI) [Ratio] 30.2 kg/m2 No Primary Care Physician [facility] Work Phone: 02-22-2022 13:49-0400 Body weight 72.63 kg No Primary Care Physician [facility] Work Phone: 02-22-2022 13:49-0400 Diastolic blood pressure 60 mm[Hg] No Primary Care Physician [facility] Work Phone: 02-22-2022 13:49-0400 Systolic blood pressure 100 mm[Hg] No Primary Care Physician [facility] Work Phone: 02-15-2022 14:07-0400 Body mass index (BMI) [Ratio] 30.2 kg/m2 No Primary Care Physician [facility] Work Phone: 02-15-2022 14:07-0400 Body weight 72.63 kg No Primary Care Physician [facility] Work Phone: 02-15-2022 14:07-0400 Diastolic blood pressure 76 mm[Hg] No Primary Care Physician [facility] Work Phone: 02-15-2022 14:07-0400 Systolic blood pressure 118 mm[Hg] No Primary Care Physician [facility] Work Phone: 02-01-2022 14:03-0400 Body mass index (BMI) [Ratio] 30.2 kg/m2 No Primary Care Physician [facility] Work Phone: 02-01-2022 14:03-0400 Body weight 72.57 kg No Primary Care Physician [facility] Work Phone: 02-01-2022 14:03-0400 Diastolic blood pressure 78 mm[Hg] No Primary Care Physician [facility] Work Phone: 02-01-2022 14:03-0400 Systolic blood pressure 128 mm[Hg] No Primary Care Physician [facility] Work Phone: 01-18-2022 13:58-0400 Body mass index (BMI) [Ratio] 29.7 kg/m2 No Primary Care Physician [facility] Work Phone: 01-18-2022 13:58-0400 Body weight 71.32 kg No Primary Care Physician [facility] Work Phone: 01-18-2022 13:58-0400 Diastolic blood pressure 78 mm[Hg] No Primary Care Physician [facility] Work Phone: 01-18-2022 13:58-0400 Systolic blood pressure 108 mm[Hg] No Primary Care Physician [facility] Work Phone: 01-13-2022 08:15-0400 Body temperature 98.2 [degF] No Primary Care Physician [facility] Work Phone: 01-13-2022 08:15-0400 Diastolic blood pressure 74 mm[Hg] No Primary Care Physician [facility] Work Phone: 01-13-2022 08:15-0400 Heart rate 103 /min No Primary Care Physician [facility] Work Phone: 01-13-2022 08:15-0400 Respiratory rate 14 /min No Primary Care Physician [facility] Work Phone: 01-13-2022 08:15-0400 SaO2% (BldA) [Mass fraction] 97 % No Primary Care Physician [facility] Work Phone: 01-13-2022 08:15-0400 Systolic blood pressure 122 mm[Hg] No Primary Care Physician [facility] Work Phone: 01-06-2022 14:26-0400 Diastolic blood pressure 62 mm[Hg] No Primary Care Physician [facility] Work Phone: 01-06-2022 14:26-0400 Systolic blood pressure 104 mm[Hg] No Primary Care Physician [facility] Work Phone: 01-06-2022 13:05-0400 Body temperature 99.5 [degF] No Primary Care Physician [facility] Work Phone: 01-06-2022 13:05-0400 Heart rate 110 /min No Primary Care Physician [facility] Work Phone: 01-06-2022 13:05-0400 Respiratory rate 15 /min No Primary Care Physician [facility] Work Phone: 01-06-2022 13:05-0400 SaO2% (BldA) [Mass fraction] 98 % No Primary Care Physician [facility] Work Phone: 08-20-2021 17:02-0500 Body temperature 98.4 [degF] No Primary Care Physician [facility] Work Phone: 08-20-2021 17:02-0500 Diastolic blood pressure 78 mm[Hg] No Primary Care Physician [facility] Work Phone: 08-20-2021 17:02-0500 Heart rate 88 /min No Primary Care Physician [facility] Work Phone: 08-20-2021 17:02-0500 Respiratory rate 16 /min No Primary Care Physician [facility] Work Phone: 08-20-2021 17:02-0500 SaO2% (BldA) [Mass fraction] 98 % No Primary Care Physician [facility] Work Phone: 08-20-2021 17:02-0500 Systolic blood pressure 120 mm[Hg] No Primary Care Physician [facility] Work Phone: 08-20-2021 15:15-0500 Body height 154.94 cm No Primary Care Physician [facility] Work Phone: 08-20-2021 15:15-0500 Body mass index (BMI) [Ratio] 26.6 kg/m2 No Primary Care Physician [facility] Work Phone: 08-20-2021 15:15-0500 Body weight 63.9 kg No Primary Care Physician [facility] Work Phone: Encounters Encounter Date Encounter Type Care Provider Facility Start: 03-11-2025 ambulatory No Primary Car e Physician Facility:[facility] Start: 03-04-2025 ambulatory Saritha Cardona l[facility] Start: 03-04-2025 End: 03-04-2025 ambulatory Saritha Salgado Facility:[facility] Start: 03-04-2025 End: 03-04-2025 ambulatory Saritha Salgado [facility] Start: 03-01-2025 End: 03-01-2025 [place] [facility] [place] [facility] Start: 02-22-2025 ambulatory [facility] Oconnellty:[facility] Start: 02-22-2025 End: 02-22-2025 ambulatory No Primary Care Physician Facility:[facility] Start: 02-22-2025 End: 02-22-2025 ambulatory No Primary Care Physician [facility] Start: 02-21-2025 End: 02-21-2025 ambulatory [facility] Start: 02-18-2025 End: 02-18-2025 ambulatory Saritha Salgado [facility] Start: 02-17-2025 End: 02-17-2025 ambulatory ANALIA Horta [facility] Start: 02-07-2025 End: 02-07-2025 ambulatory Saritha Salgado [facility] Start: 02-07-2025 End: 02-07-2025 ambulatory Saritha Salgado Facility:[facility] Start: 02-04-2025 End: 02-04-2025 ambulatory MD NO PRIMARY CARE [facility] Start: 02-01-2025 End: 02-01-2025 ambulatory No Primary Care Physician [facility] Start: 02-01-2025 End: 02-01-2025 ambulatory No Primary Care Physician Facility:[facility] Start: 01-26-2025 End: 01-27-2025 Evaluation and management of inpatient Alejandra Tena DO Work Phone: [facility] Start: 01-26-2025 End: 01-26-2025 ambulatory No Primary Care Physician Facility:[facility] Start: 01-26-2025 End: 01-26-2025 Emergency department patient visit Brian Dominguez Facility:[facility] Start: 01-25-2025 End: 01-25-2025 ambulatory NO PRIMARY CARE [facility] Start: 01-17-2025 End: 01-17-2025 ambulatory Analia Mcgregor Facility:[facility] Start: 01-17-2025 End: 01-17-2025 ambulatory Analia Mcgregor Facility:[facility] Start: 01-06-2025 End: 01-06-2025 ambulatory Analia Mcgregor [facility] Start: 12-30-2024 End: 12-30-2024 ambulatory [facility] [place] Start: 12-08-2024 End: 12-08-2024 ambulatory Analia Mcgregor [facility] Start: 12-07-2024 End: 12-07-2024 ambulatory Albaro Jimenez Facility[facility] Start: 11-30-2024 End: 11-30-2024 ambulatory NO PRIMARY CARE [facility] Start: 11-29-2024 End: 11-29-2024 ambulatory JAYSON BATES [facility] Start: 11-09-2024 End: 11-09-2024 ambulatory Saritha Salgado [facility] Start: 11-09-2024 End: 11-09-2024 ambulatory Saritha Salgado Facility:[facility] Start: 10-25-2024 End: 10-25-2024 ambulatory NO PRIMARY CARE [facility] Start: 10-20-2024 End: 10-20-2024 ambulatory Saritha Marcanthony Facility:[facility] Start: 10-19-2024 End: 10-19-2024 ambulatory Albaro L Tony [facility] Start: 10-06-2024 End: 10-06-2024 ambulatory Saritha Marcanthony Facility:[facility] Start: 10-05-2024 End: 10-05-2024 Subsequent hospital visit by physician Ashley Villarreal MD Work Phone: [facility] Comment on above: History of Start: 10-05-2024 End: 10-06-2024 ambulatory NO PRIMARY CARE [facility] Start: 09-27-2024 End: 09-27-2024 ambulatory NO PRIMARY CARE [facility] Start: 09-26-2024 End: 09-26-2024 Emergency department patient visit Damaso Whitfield Facility:[facility] Start: 09-15-2024 End: 09-15-2024 ambulatory Saritha Marckirstyony [facility] Start: 09-15-2024 End: 09-15-2024 ambulatory Albaro Jimenez Facility:[facility] Start: 09-08-2024 End: 09-08-2024 ambulatory Jessica Reyes [facility] Start: 08-30-2024 End: 08-30-2024 ambulatory Sarithademarcus Gundersonony [facility] Start: 08-23-2024 End: 08-23-2024 ambulatory Saritha Marcanthony [facility] Start: 08-23-2024 End: 08-23-2024 ambulatory Saritha Marcanthony Facility:[facility] Start: 08-17-2024 End: 08-17-2024 ambulatory Saritha Marcanthony Facility:[facility] Start: 08-01-2024 End: 08-01-2024 ambulatory Saritha Marcanthony Facility:[facility] Start: 07-30-2024 End: 07-30-2024 ambulatory Saritha Marcanthony Facility:[facility] Start: 07-28-2024 End: 07-28-2024 ambulatory Saritha Marcanthony Facility:[facility] Start: 07-06-2024 End: 07-06-2024 ambulatory Albaro Jimenez [facility] Start: 05-27-2024 ambulatory Saritha Salgado Faci lity:[facility] Start: 05-24-2024 End: 05-24-2024 ambulatory No Primary Care Physician Facility:[facility] Start: 05-13-2024 End: 05-13-2024 ambulatory No Primary Care Physician Facility:[facility] Start: 04-28-2024 End: 04-28-2024 ambulatory No Primary Care Physician Facility:[facility] Start: 04-16-2024 End: 04-16-2024 ambulatory Analia Mcgregor Facility:[facility] Start: 04-16-2024 ambulatory Analia Tafoyarosette Luis E Fa cility:[facility] Start: 02-23-2024 End: 02-23-2024 Subsequent hospital visit by physician Margaret TERRY Work Phone: [facility] Comment on above: Arrived Start: 06-17-2023 Non-patient / Non-visit No Primary Care Physician [facility] Start: 06-17-2023 End: 06-17-2023 Admission to same day surgery center No Primary Care Physician [facility] Start: 06-17-2023 End: 06-17-2023 ambulatory No Primary Care Physician [facility] Work Phone: Start: 06-05-2023 Registered Referred No Primary Care Physician [facility] Start: 05-26-2023 End: 05-26-2023 Patient encounter procedure No Primary Care Physician [facility] Work Phone: Start: 05-26-2023 End: 05-26-2023 Patient encounter procedure No Primary Care Physician [facility] Work Phone: Start: 05-15-2023 End: 05-15-2023 ambulatory No Primary Care Physician [facility] Work Phone: Start: 05-15-2023 End: 05-15-2023 Patient encounter procedure No Primary Care Physician [facility] Work Phone: Start: 04-28-2023 End: 04-28-2023 ambulatory No Primary Care Physician [facility] Work Phone: Start: 04-28-2023 End: 04-28-2023 Patient encounter procedure No Primary Care Physician [facility]Laboratory Work Phone: Start: 04-17-2023 End: 04-17-2023 Patient encounter procedure No Primary Care Physician [facility] Work Phone: Start: 03-18-2023 End: 03-18-2023 ambulatory No Primary Care Physician [facility] Work Phone: Start: 03-18-2023 End: 03-18-2023 Patient encounter procedure No Primary Care Physician [facility], [facility] Start: 03-12-2023 End: 03-12-2023 ambulatory No Primary Care Physician [facility] Work Phone: Start: 03-12-2023 End: 03-12-2023 Patient encounter procedure No Primary Care Physician [facility] Work Phone: Start: 03-05-2023 End: 03-05-2023 ambulatory No Primary Care Physician [facility] Work Phone: Start: 03-05-2023 End: 03-05-2023 Patient encounter procedure No Primary Care Physician [facility] Work Phone: Start: 03-04-2023 End: 03-04-2023 Patient encounter procedure No Primary Care Physician [facility] Work Phone: Start: 02-24-2023 End: 02-24-2023 Patient encounter procedure No Primary Care Physician [facility] Work Phone: Start: 02-19-2023 End: 02-19-2023 ambulatory No Primary Care Physician [facility] Work Phone: Start: 02-19-2023 End: 02-19-2023 Patient encounter procedure No Primary Care Physician [facility] Start: 02-13-2023 End: 02-13-2023 Patient encounter procedure No Primary Care Physician [facility] Work Phone: Start: 02-12-2023 End: 02-12-2023 ambulatory No Primary Care Physician [facility] Work Phone: Start: 02-12-2023 End: 02-12-2023 Patient encounter procedure No Primary Care Physician [facility] Work Phone: Start: 02-05-2023 End: 02-05-2023 ambulatory No Primary Care Physician [facility] Work Phone: Start: 02-05-2023 End: 02-05-2023 Patient encounter procedure No Primary Care Physician [facility] Work Phone: Start: 01-29-2023 End: 01-29-2023 ambulatory No Primary Care Physician [facility] Work Phone: Start: 01-29-2023 End: 01-29-2023 Patient encounter procedure No Primary Care Physician [facility] Work Phone: Start: 01-26-2023 End: 01-26-2023 ambulatory No Primary Care Physician [facility] Work Phone: Start: 01-26-2023 End: 01-26-2023 Patient encounter procedure No Primary Care Physician [facility] Work Phone: Start: 01-23-2023 End: 01-23-2023 ambulatory No Primary Care Physician [facility] Work Phone: Start: 01-23-2023 End: 01-23-2023 Patient encounter procedure No Primary Care Physician [facility] Work Phone: Start: 01-22-2023 End: 01-22-2023 ambulatory No Primary Care Physician [facility] Work Phone: Start: 01-22-2023 End: 01-22-2023 Patient encounter procedure No Primary Care Physician [facility] Work Phone: Start: 01-16-2023 End: 01-16-2023 ambulatory No Primary Care Physician [facility] Work Phone: Start: 01-16-2023 End: 01-16-2023 Patient encounter procedure No Primary Care Physician [facility] Work Phone: Start: 01-14-2023 End: 01-14-2023 ambulatory No Primary Care Physician [facility] Work Phone: Start: 01-14-2023 End: 01-14-2023 Patient encounter procedure No Primary Care Physician [facility], [facility] Work Phone: Start: 01-14-2023 End: 01-14-2023 ambulatory No Primary Care Physician [facility] Work Phone: Start: 01-14-2023 End: 01-14-2023 Patient encounter procedure No Primary Care Physician [facility] Work Phone: Start: 01-12-2023 End: 01-12-2023 Patient encounter procedure No Primary Care Physician [facility] Work Phone: Start: 11-14-2022 End: 11-14-2022 Patient encounter procedure No Primary Care Physician [facility] Work Phone: Start: 11-04-2022 End: 11-04-2022 ambulatory No Primary Care Physician [facility] Work Phone: Start: 11-04-2022 End: 11-04-2022 Patient encounter procedure No Primary Care Physician [facility]-Laboratory, Specimen Start: 10-31-2022 End: 10-31-2022 ambulatory No Primary Care Physician [facility] Work Phone: Start: 10-31-2022 End: 10-31-2022 Patient encounter procedure No Primary Care Physician [facility] Start: 10-17-2022 End: 10-17-2022 Patient encounter procedure No Primary Care Physician [facility] Start: 09-23-2022 End: 09-23-2022 Patient encounter procedure No Primary Care Physician [facility] Start: 09-19-2022 End: 09-19-2022 Patient encounter procedure No Primary Care Physician [facility] Start: 09-09-2022 End: 09-09-2022 Patient encounter procedure No Primary Care Physician [facility] Start: 09-09-2022 End: 09-09-2022 Patient encounter procedure No Primary Care Physician [facility] Start: 08-02-2022 End: 08-02-2022 Patient encounter procedure No Primary Care Physician [facility] Start: 05-24-2022 End: 05-24-2022 ambulatory No Primary Care Physician [facility] Work Phone: Start: 05-24-2022 End: 05-24-2022 Patient encounter procedure No Primary Care Physician [facility] Start: 05-13-2022 End: 05-13-2022 ambulatory No Primary Care Physician [facility] Work Phone: Start: 05-13-2022 End: 05-13-2022 Patient encounter procedure No Primary Care Physician [facility]-Laboratory, Specimen Start: 05-13-2022 End: 05-13-2022 Patient encounter procedure No Primary Care Physician [facility] Start: 04-30-2022 End: 04-30-2022 ambulatory No Primary Care Physician [facility] Work Phone: Start: 04-30-2022 End: 04-30-2022 Patient encounter procedure No Primary Care Physician [facility] Start: 04-15-2022 End: 04-15-2022 ambulatory No Primary Care Physician [facility] Work Phone: Start: 04-15-2022 End: 04-15-2022 Patient encounter procedure No Primary Care Physician [facility] Start: 04-10-2022 End: 04-10-2022 Patient encounter procedure No Primary Care Physician [facility] Start: 03-12-2022 End: 03-12-2022 Patient encounter procedure [facility] Start: 02-26-2022 Non-patient / Non-visit No Primary Care Physician [facility] Start: 02-25-2022 Non-patient / Non-visit No Primary Care Physician [facility] Start: 02-25-2022 End: 02-26-2022 Evaluation and management of inpatient No Primary Care Physician [facility] Start: 02-25-2022 End: 02-25-2022 Patient encounter procedure No Primary Care Physician [facility] Start: 02-25-2022 End: 02-25-2022 Patient encounter procedure No Primary Care Physician [facility] Start: 02-22-2022 End: 02-22-2022 Patient encounter procedure No Primary Care Physician [facility] Start: 02-22-2022 End: 02-22-2022 Patient encounter procedure No Primary Care Physician [facility]-Laboratory, Specimen Start: 02-18-2022 End: 02-18-2022 Patient encounter procedure No Primary Care Physician [facility] Start: 02-15-2022 End: 02-15-2022 Patient encounter procedure No Primary Care Physician [facility] Start: 02-11-2022 End: 02-11-2022 Patient encounter procedure No Primary Care Physician [facility] Start: 02-04-2022 End: 02-04-2022 Patient encounter procedure No Primary Care Physician [facility] Start: 02-01-2022 End: 02-01-2022 Patient encounter procedure No Primary Care Physician [facility] Start: 01-29-2022 End: 01-29-2022 Patient encounter procedure No Primary Care Physician [facility] Start: 01-25-2022 End: 01-25-2022 Patient encounter procedure No Primary Care Physician [facility] Start: 01-18-2022 End: 01-18-2022 Patient encounter procedure No Primary Care Physician [facility] Start: 01-13-2022 End: 01-13-2022 Patient encounter procedure No Primary Care Physician [facility] Start: 01-06-2022 End: 01-06-2022 Patient encounter procedure No Primary Care Physician [facility] Start: 12-25-2021 End: 12-25-2021 Patient encounter procedure No Primary Care Physician [facility] Start: 12-10-2021 End: 12-10-2021 Patient encounter procedure No Primary Care Physician [facility] Start: 12-07-2021 End: 12-07-2021 Patient encounter procedure No [facility] [place] [facility] and referral director [facility] Start: 11-27-2021 Non-patient / Non-visit No Primary Care Physician [facility] Start: 11-26-2021 End: 11-26-2021 Patient encounter procedure No Primary Care Physician [facility] Start: 11-14-2021 End: 11-14-2021 Patient encounter procedure No Primary Care Physician [facility] Start: 11-06-2021 End: 11-06-2021 Patient encounter procedure No Primary Care Physician [facility] Start: 09-17-2021 End: 09-17-2021 Patient encounter procedure No Primary Care Physician [facility] Start: 09-07-2021 End: 09-07-2021 Patient encounter procedure No [facility] [place] [facility] and referral [facility] Start: 08-22-2021 End: 08-22-2021 Patient encounter procedure No [facility] [place] information and referral director Off Start: 08-20-2021 End: 08-20-2021 Emergency department patient visit No Primary Care Physician [facility] Procedures Date Procedure Procedure Detail [...] specimen Performed By: #### L [id number] #### Sterile Instrument Technician: RADHA VASQUEZ ([id number]) [facility] ([facility]) [address] [place] [address] Start: 01-27-2025 ABO and Rh group [Ty [...] surf ant ibody hbsab Margaret M Duglase 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 Phone: Start: 06-17-2023 Laparoscopy No Primary [...] 2) Zoste r Vaccines (1 of 2) [facility] Start: 01-19-2032 DTaP/Tdap/Td Vaccine s (8 - Td or Tdap) DTaP/Tdap/Td Vaccines (8 - Td or Tdap) [facility] Start: 01-27-2026 Depression Screening Depression Scre ening [facility] Start: 03-21-2025 Influenza vaccination Influenza Vacc ine (#1) [facility] Start: 03-21-2025 RSV Immunization for Adults (1 - Risk 1-dose series) RSV Immunization for Adults (1 - Risk 1-dose series) [facility] Start: 10-25-2024 End: 10-25-2024 Professional / ancillary services management 10/25/2024 2:45 PM EDT Ancillary Procedure Visit [facility] [address] [place] [address] US FU 4 weeks [facility] Comment on above: US FU 4 weeks Start: 03-21-2024 COVID-19 (2 5 season) COVID-19 ( season) [facility] Start: 03-21-2024 COVID-19 Vaccine ( season) COVID-19 Vaccine ( season) [facility] Start: 03-21-2024 FLU (#1) FLU (#1) [facility] Start: 06-17-2023 Patient discharge [facility] Start: 06-17-2023 Ambulation without limitation [facility] Start: 06-17-2023 Medical regimen orde rs management [facility] Start: 06-17-2023 Medication education [facility] Start: 06-17-2023 Procedure discontinued [facility] Start: 06-17-2023 Taking patient vital signs [facility] Start: 06-17-2023 Vital signs measurements [facility] Start: 06-17-[address] [facility] Start: 03-21-2023 COVID-19 (2022-08 season) COVID-19 (2022- season) [facility] Start: 02-26-[address] [facility] Work Phone: Start: 02-26-2022 Application of abdom inal corset [facility] Work Phone: Start: 02-26-2022 Patient discharge [facility] Work Phone: Start: 02-26-2022 Lupus anticoagulant assay [facility] Work Phone: Start: 02-26-[address] [facility] Work Phone: Start: 02-25-2022 End: 02-26-2022 [facility] Work Phone: Start: 02-25-2022 Administration of medication [facility] Work Phone: Start: 02-25-2022 Ambulation therapy management [facility] Work Phone: Start: 02-25-2022 Application of device [facility] Work Phone: Start: 02-25-2022 Application of inter mittent pneumatic compression device [facility] Work Phone: Start: 02-25-2022 Assessment of risk o f venous thromboembolism [facility] Work Phone: Start: 02-25-2022 Catheterization of vein [facility] Work Phone: Start: 02-25-2022 Deep breathing and c oughing exercises [facility] Work Phone: Start: 02-25-[address] [facility] Work Phone: Start: 02-25-2022 Incentive spirometry [facility] Work Phone: Start: 02-25-2022 Measuring intake and output [facility] Work Phone: Start: 02-25-2022 Notification of physician [facility] Work Phone: Start: 02-25-2022 Procedure discontinued [facility] Work Phone: Start: 02-25-2022 Provision of activit y privileges [facility] Work Phone: Start: 02-25-2022 Vital signs measurements [facility] Work Phone: Start: 02-25-2022 Wound care [facility] Work Phone: Start: 02-25-2022 Application of abdom inal corset [facility] Work Phone: Start: 02-25-2022 Admission procedure [facility] Work Phone: Start: 02-25-[address] [facility] Work Phone: Start: 02-25-2022 Streptococcus agalac tiae [Presence] in Unspecified specimen by Organism specific culture [facility] Work Phone: Start: 2021 Screening for malign ant neoplasm of cervix [facility] Start: 02-17-2012 Microscopic observat ion [Identifier] in Cervix by Cyto stain Pap Smear [facility] Start: 02-17-2012 Screening for malign ant neoplasm of cervix Pap Smear [facility] Start: 2010 Hepatitis B (1 of 3 - 19+ 3-dose series) Hepatitis B (1 of 3 - 19+ 3-dose series) [facility] Start: 2009 Hepatitis C screening Hepatitis C Sc reening [facility] Start: 2007 MenB (1 of 2 - MenB 2-Dose Series Bexsero) MenB (1 of 2 - MenB 2-Dose Series Bexsero) [facility] Start: 02-17-2004 Varicella (1 of 2 - 13+ 2-dose series) Varicella (1 of 2 - 13+ 2-dose series) [facility] Start: 02-17-2004 Varicella vaccination Varicell a Vaccines (1 of 2 - 13+ 2-dose series) [facility] Start: 1998 Tetanus Diphtheria a nd Pertussis Vaccines (1 - Tdap) Tetanus Diphtheria and Pertussis Vaccines (1 - Tdap) [facility] Start: 02-17-1992 MMR (1 of 1 - Standa rd series) MMR (1 of 1 - Standard series) [facility] Start: 1991 HIV screening HIV Screening [facility] End: 01-27-2025 Bacteria identified in Urine by Culture [facility] Comment on above: STAT (Lab) for 1 Occ urrences starting 01/27/2025 until 01/27/2025 Once for 1 Occurrenc es starting 01/27/2025 until 01/27/2025 Bacteria identified in Urine by Culture Urine culture Microbiology STAT 01/27/2025 3:02 AM EDT [facility] Beta 2 glycoprotein 1 IgA Ab [Presence] in Serum [facility] Work Phone: Beta 2 glycoprotein 1 IgG Ab [Presence] in Serum [facility] Work Phone: Beta 2 glycoprotein 1 IgM Ab [Presence] in Serum [facility] Work Phone: Beta-hemolytic Strep tococcus culture [facility] Work Phone: Cardiolipin IgA Ab [Units/volume] in Serum by Immunoassay [facility] Work Phone: Cardiolipin IgG Ab [Units/volume] in Serum or Plasma [facility] Work Phone: Cardiolipin IgM Ab [Units/volume] in Serum or Plasma [facility] Work Phone: Choriogonadotropin ( test) [Presence] in Serum or Plasma [facility] Cytomegalovirus IgG antibody measurement [facility] Work Phone: Cytomegalovirus IgM antibody assay [facility] Work Phone: Group B Streptococcu s Culture Group B Streptococcus Culture [facility] Work Phone: Lupus anticoagulant neutralization platelet [Time] in Platelet poor plasma by Coagulation assay [facility] Work Phone: End: 10-05-2024 Miscellaneous Sendout: NAIT [facility] Work Phone: Comment on above: 1 Occurrences starti ng 10/05/2024 until 10/05/2024 Partial thromboplast in time ratio [facility] Work Phone: Parvovirus B19 IgG A b [Units/volume] in Serum by Immunoassay [facility] Work Phone: Parvovirus B19 IgM A b [Units/volume] in Serum by Immunoassay [facility] Work Phone: Patient Education Urinary Tract Infections in Women ED Hyperemesis Gravidarum [facility] Work Phone: Patient referral [facility] Work Phone: Streptococcus agalac tiae [Presence] in Unspecified specimen by Organism specific culture [facility] Work Phone: End: 01-27-2025 Streptococcus agalactiae DNA [Presence] in Unspecified specimen by MAE with probe detection Group B Strep Screen PCR Microbiology STAT STAT (Lab) for 1 Occurrences starting 01/27/2025 until 01/27/2025 [facility] Work Phone: Comment on above: STAT (Lab) for 1 Occ urrences starting 01/27/2025 until 01/27/2025 Streptococcus agalac tiae DNA [Presence] in Unspecified specimen by MAE with probe detection Group B Strep Screen PCR Microbiology STAT 01/27/2025 2:10 AM EDT [facility] [employer] Thrombin time [facility] Work Phone: Toxoplasma gondii Ig G Ab [Units/volume] in Serum [facility] Work Phone: Toxoplasma gondii Ig M Ab [Units/volume] in Serum [facility] Work Phone: End: 01-27-2025 Urine Hold Cup Urine Hold Cup Lab Timed Once for 1 Occurrences starting 01/27/2025 until 01/27/2025 [facility] Comment on above: Once for 1 Occurrenc es starting 01/27/2025 until 01/27/2025 US Thyroid gland [facility] Work Phone: Immunizations Immunization Date Immunization Notes Care Provider Fa cili 05-14-2024 influenza virus vaccine, unspecified formulation Alejandra Tena DO Work Phone: [facility] 05-13-2023 influenza, injectabl e, quadrivalent, preservative free No Primary Care Physician [facility] 06-20-2022 influenza, injectabl e, quadrivalent, preservative free No Primary Care Physician [facility] 06-20-2022 influenza, seasonal, injectable No Primary Care Physician [facility] 01-18-2022 tetanus toxoid, redu itzel diphtheria toxoid, and acellular pertussis vaccine, adsorbed No Primary Care Physician [facility] 04-25-2021 influenza, injectabl e, quadrivalent, preservative free No Primary Care Physician [facility] 04-25-2021 influenza, seasonal, injectable No Primary Care Physician [facility] 04-05-2021 Covid (Moderna) No Primary C are Physician [facility] 03-08-2021 Covid (Moderna) No Primary C are Physician [facility] 04-18-2020 influenza, injectabl e, quadrivalent, preservative free No Primary Care Physician [facility] 04-18-2020 influenza, seasonal, injectable No Primary Care Physician [facility] 06-16-2019 influenza, injectabl e, quadrivalent, preservative free No Primary Care Physician [facility] 06-16-2019 influenza, seasonal, injectable No Primary Care Physician [facility] 04-17-2018 influenza, injectabl e, quadrivalent, preservative free No Primary Care Physician [facility] 04-17-2018 influenza, seasonal, injectable No Primary Care Physician [facility] 05-14-2017 influenza, injectabl e, quadrivalent, preservative free No Primary Care Physician [facility] 05-14-2017 influenza, seasonal, injectable No Primary Care Physician [facility] 05-08-2016 influenza, injectabl e, quadrivalent, preservative free No Primary Care Physician [facility] 05-08-2016 influenza, seasonal, injectable No Primary Care Physician [facility] 06-01-2015 influenza, injectabl e, quadrivalent, preservative free No Primary Care Physician [facility] 06-01-2015 influenza, seasonal, injectable No Primary Care Physician [facility] 10-03-2014 tetanus toxoid, redu itzel diphtheria toxoid, and acellular pertussis vaccine, adsorbed No Primary Care Physician [facility] 09-21-2014 influenza, injectabl e, quadrivalent, preservative free No Primary Care Physician [facility] 09-21-2014 influenza, seasonal, injectable No Primary Care Physician [facility] 05-24-2005 hepatitis B vaccine, pediatric or pediatric/adolescent dosage No Primary Care Physician [facility] Payers Date Payer Category Payer Medicaid HMO [employer] [id number] 2024 Commercial Managed C [facility] [id number] 2024 Unknown [id number] 2024 Medicaid [id number] 2024 Unknown [id number] 2024 Unknown [id number]. 1.13.234.2. [id number] 2023 Self-pay [id number] 1991 Unknown [id number] 2.16.840.1.177484.3.579.2 1991 Unknown [id number] 2.16.840.1.805569.3.579.2 1991 Unknown [id number] 2.16.840.1.995940.3.579.2 1991 Unknown [id number] 2.16.840.1.783242.3.579.2 1991 Unknown [id number] 2.16.840.1.478946.3.579. 1991 Unknown [id number] 2.16.840.1.955478.3.579.2 1991 Unknown [id number] 2.16.840.1.114808.3.579.2 1991 Unknown [id number] 2.16.840.1.977508.3.579.2 1991 Unknown [id number] 2.16.840.1.088190.3.579.2 1991 Unknown [id number] 2.16.840.1.702498.3.579.2 1991 Unknown [id number] 2.16840.1.971347.3.579.2 1991 Unknown [id number] 2.16.840.1.513934.3.579.2 47 Private Health Insurance [id number] Unknown [id number] Unknown [id number] Unknown [id number] Unknown [id number] 2.16.840.1.491723.3.579.2. 462 Unknown [id number] 2.16.840.1.683920.3.579.2. 462 Unknown [id number] 2.16.840.1.918241.3.579.2. 462 Unknown [id number] 2.16.840.1.188391.3.579.2. 462 Unknown [id number] 2.16.840.1.740132.3.579.2. 462 Unknown [id number] 2.16.840.1.013384.3.579.2. 462 Unknown [id number] 2.16.840.1.859614.3.579.2. 462 Unknown [id number] 2.16.840.1.886305.3.579.2. 462 Unknown [id number] 2.840.1.155219.3.579.2. 462 Unknown [id number] 2.16.840.1.322356.3.579.2. 462 Unknown [id number] 2.16.840.1.141810.3.579.2. 462 Unknown [id number] 2.16.840.1.483249.3.579.2. 462 Unknown [id number] 2.16.840.1.199465.3.579.2. 462 Unknown [id number] 2.16.840.1.155492.3.579.2. 462 Unknown [id number] 2.16.840.1.042537.3.579.2. 462 Unknown [id number] 2.16.840.1.281898.3.579.2. 462 Unknown [id number] 2.16.840.1.597890.3.579.2. 462 Unknown [id number] 2.16.840.1.899205.3.579.2. 462 Unknown [id number] 2.16.840.1.085847.3.579.2. 462 Unknown [id number] 2.16.840.1.241648.3.579.2. 462 Unknown [id number] 2.16.840.1.152987.3.579.2. 462 Unknown [id number] 2.16.840.1.275036.3.579.2. 462 Unknown [id number] 2.16.840.1.436865.3.579.2. 462 Unknown [id number] 2.16.840.1.084069.3.579.2. 462 Unknown [id number] 2.16.840.1.485543.3.579.2. 462 Unknown [id number] 2.16.840.1.350764.3.579.2. 462 Unknown [id number] 2.16840.1.486779.3.579.2. 462 Unknown [id number] 2.16.840.1.840975.3.579.2. 462 Unknown [id number] 2.16.840.1.821568.3.579.2. 462 Unknown [id number] 2.16.840.1.798175.3.579.2. 462 Unknown [id number] 2.16.840.1.981635.3.579.2. 462 Unknown [id number] 2.16840.1.494169.3.579.2. 462 Unknown [id number] 2.16.840.1.127720.3.579.2. 462 Unknown [id number] 2.16.840.1.355071.3.579.2. 462 Unknown [id number] 2.16.840.1.940547.3.579.2. 462 Unknown [id number] 2.16.840.1.000809.3.579.2. 462 Unknown [id number] 2.16.840.1.266456.3.579.2. 462 Unknown [id number] 2.16.840.1.156428.3.579.2. 462 Unknown [id number] 2.16.840.1.432898.3.579.2. 462 Unknown [id number] 2.16.840.1.109037.3.579.2. 462 Unknown [id number] 2.16.840.1.030111.3.579.2. 462 Unknown [id number] 2.16.840.1.570437.3.579.2. 462 Unknown [id number] 2.16.840.1.696069.3.579.2. 462 Unknown [id number] 2.16.840.1.331385.3.579.2. 462 Unknown [id number] 2.16.840.1.494207.3.579.2. 462 Unknown [id number] 2.840.1.608150.3.579.2. 462 Social History Date Type Detail Facility [facility] Work Phone: Start: 12-10-2021 End: 05-26-2023 Tobacco smoking status WAIS Unknown if ever smoked [facility] Start: 12-05-[address] [facility] Start: 12-11-2020 Non-smoker [facility] Start: 1990 Sex Assigned At Female [facility] Start: 05-08-2022 End: 01-27-2025 Tobacco smoking status NHIS Never smoked tobacco [facility] Start: 05-08-2022 End: 01-27-2025 Tobacco use and exposure Smokeless tobacco non-user [facility] Start: 05-08-2022 End: 09-27-2024 Alcoholic beverage intake Lifetime non-drinker (finding) [facility] Start: 05-08-2022 End: 01-27-2025 History of Social function [facility] Start: 05-08-2022 End: 01-27-2025 Tobacco use panel [facility] Start: 1990 Sex assigned at Not on file A [facility] Start: 07-25-2024 [facility] Start: 01-27-2025 Alcoholic beverage intake Ex-d john (finding) [employer] Has the electric, [employer] s, oil, or water company threatened to shut off services in your home in past 12Mo No [employer] (I/We) worried wheth er (my/our) food would run out before (I/we) got money to buy more. Never true [employer] In the past 12 month s, has lack of transportation kept you from medical appointments or from getting medications? No [facility] [employer] Start: 08-08-2024 Sex Female (finding) [facility] NEGATED: Highlighted row [facility] NEGATED: Highlighted rowStart: NINF History of tobacco use Passive smoker [facility] Goals Date Patient Goal Desired Activity /State Functional Status Date Assessment Result Facility 01-27-2025 Patient Health [facility] ionnaire 2 item (PHQ-2) [Reported] [facility] 02-25-2022 Functional status Activity Abili ty Post Op [facility] Work Phone: [facility] Mental Status Date Assessment Result Facility 06-17-2023 Cognitive function Level Of Cons ciousness Awake;Drowsy [facility] Work Phone: 06-17-2023 Cognitive function Patient Orien tation Person;Place;Time [facility] Work Phone: Clinical Notes 07-24-2021 to 01-27-2025 Bradni Emery RN - 01/27/2025 1:00 PM Terrie [...] to go home., papers signed, ambulatory home [facility] 01-27-2025 Nurse Note 1300 iron infusion complete, per DR. Stringer, may be discharged to home ., iv heplock removed, clean dry and intact., discharge papers given, no acute distress this afternoon, blood sugars trending normal and pt is asymptomatic at present time, feels reassured to go home., papers signed, ambulatory home documented in this encounter [facility] 01-27-2025 Note Department of Obstet rics and Gynecology [facility] Discharge Summary Admission on 01/26/2025 11:19 PM Yessi Anne is a 34 y.o. at 28w4d who presented to Labor and Delivery for symptomatic hypoglycemia. She had been trending BGTs in place of a 1hr GTT and her Dexcom was frequently reading less than 55. She was transported from an outside hospital to [facility] with normal blood sugar readings from fingersticks however was feeling symptomatic. Her blood sugars while admitted to [facility] were within normal limit. 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 Department of Obstetrics and Gynecology [facility] Discharge Summary Admission on 01/26/2025 11:19 PM Yessi Anne is a 34 y.o. at 28w4d who presented to Labor and Delivery for symptomatic hypoglycemia. She had been trending BGTs in place of a 1hr GTT and her Dexcom was frequently reading less than 55. She was transported from an outside hospital to [facility] with normal blood sugar readings from fingersticks however was feeling symptomatic. Her blood sugars while admitted to [facility] were within normal limit. An EKG [...] Surgery, Anxiety Follow up appointment with your doctor/railroad switchman - Keep next scheduled appointment Activity - Normal Activity Call your doctor/railroad switchman if you have: - leaking fluid - vaginal bleeding - regular contractions: More than 6 contractions in one hour - decreased movement - worsening abdominal (belly) pain - headache, blurry vision, increased swelling, upper abdominal pain Cherry Pham MD 01/27/2025 12:49 PM Cosigned by Josemanuel Stringer MD at 01/27/2025 2:20 PM EDT documented in this encounter [facility] 01-27-2025 Hospital Discharg e instructions Cherry Pham MD - 01/27/2025 12:48 PM EDT Follow up appointment with your doctor/railroad switchman - Keep next scheduled appointment Activity - Normal Activity Call your doctor/railroad switchman if you have: - leaking fluid - [...] visit on 01/27/25 . Cherry Pham MD [facility] documented in this encounter [facility] 01-27-2025 Note Formatting of this n ote might be different from the original. Date: 01/27/2025 Name: Yessi Anne : 1990 [facility] Patient Information Primary Caregiver: Self Accompanied by/Relationship: S/O;Family Marital Status: Support System: SO/Family Scientologist/Cultural Factors: None Activities of Daily Living Communication: [...] place to sleep or slept in a assisted (including now)? No Transportation Needs Has the [...] Developmental Delay: N/A Children's Services: N/A T [facility] 01-27-2025 Note Formatting of this n ote might be different from the original. Date: 01/27/2025 Name: Yessi Anne : 1990 [facility] Information [place] Patient Information Primary Caregiver: Self Accompanied by/Relationship: S/O;Family Marital Status: Support System: SO/Family Scientologist/Cultural Factors: None Activities of Daily Living Communication: [...] place to sleep or slept in a assisted (including now)? No Transportation Needs Has the [...] N/A Developmental Delay: N/A Children's Services: N/A [facility] 01-27-2025 Miscellaneous Notes Formattin g of this note might be different from the original. Date: 01/27/2025 Name: Yessi Anne : 1990 [facility] Patient Information Primary Caregiver: Self Accompanied by/Relationship: S/O;Family Marital Status: Support System: SO/Family Scientologist/Cultural Factors: None Activities of Daily Living Communication: [...] place to sleep or slept in a assisted (including now)? No Transportation Needs Has the [...] Children's Services: N/A documented in this encounter [facility] 01-27-2025 History of Presen t illness Narrative [...] Alejandra Tena DO documented in this encounter [facility] 01-27-2025 History and physical note Department of [...] in the EMS. On her admission to [facility], her sugar was 113 while her Dexcom [...] patient was feeling symptomatic - Transferred to [facility] for further care with MFM - BGT [...] constantly throughout the day - Consider inpatient slicing machine operator consult - Growth US/BPP ordered for AM [...] Maternal- Medicine This documentation was prepared using [employer] voice recognition software. As a result, errors may occur. When identified, these errors have been corrected. While every attempt is made to correct errors during dictation, errors may still exist. [facility] 01-27-2025 Note Attestation signed by Josemanuel Stringer [...] Maternal- Medicine This documentation was prepared using [employer] voice recognition software. As a result, errors [...] in the EMS. On her admission to [facility], her sugar was 113 while her Dexcom [...] shortness of br (more content not included)... [facility] 01-27-2025 History and physical note [...] in the EMS. On her admission to [facility], her sugar was 113 while her Dexcom [...] patient was feeling symptomatic - Transferred to [facility] for further care with MFM - BGT [...] constantly throughout the day - Consider inpatient slicing machine operator consult - Growth US/BPP ordered for AM [...] Maternal- Medicine This documentation was prepared using [employer] voice recognition software. As a result, errors may occur. When identified, these errors have been corrected. While every attempt is made to correct errors during dictation, errors may still exist. documented in this encounter [facility] 11-30-2024 Note [facility] CONSULTATION Referring Provider Sartiha Salgado MD [address] [address] ASSESSMENT AND RECOMMENDATIONS Patient comes today for a follow-up consultation regarding her history of 37-week demise with pulmonary hemorrhage. Patient today is without complaints. Today, we took the time to extensively review her obstetrical records together while she was in the office. Patient reports that in the concerning , she presented to [facility]. She underwent a period of monitoring [...] than capable care provided by her primary manager market research. Romy OVERTONA FACOG Maternal- Medicine SUBJECTIVE Yessi [...] Gen ND Comments: Stat LTCS, transported to [facility] NICU with anemia and passed of pulmonary [...] Blood Pressure Paternal (more content not included)... [facility] 06-17-2023 Discharge summary Note Date/Time June 17, 2023 3:56pm [facility] Medical Records Department [address] [place] [address] Instructions for Home/Discharge Instructions 06/17/23 1556 MR#: [id number] Acct: [id number] Name: YESSI ANNE Rep #:[id number] : 1990 33 From: Analia Mcgregor DO PCP: Care Physician,No Primary Status :[facility] Discharge Instructions Diet Discharge Diet: No restrictions [...] Attending Provider: Analia Mcgregor Primary Care Provider: Tennlile Physician,No Primary Discharge Orders/Prescriptions Prescriptions: New naproxen [...] CC: No Primary Care Physician ~ Signed [facility] Work Phone: 1(750) 996-479811-28-2023 Procedure [facility] 06-17-2023 History and physical note Author Analia Kimbrough [facility] June 17, 2023 2:13pm Note Date/Time June 17, 2023 2:13pm [facility] Medical Records Department [address] [place] [id number] History & Physical Exam 06/17/23 1413 MR#: [id number] Acct: [id number] Name: YESSI ANNE Rep #:[id number] : 1990 33 From: Analia Mcgregor DO PCP: Tennille Physician,No [place] [facility] [place] [address] History and Physical Date of Admission: 06/17/23 Intake Vital Signs 04/17/2311:46 05/26/2313:40 Height 5 ft 1 in 5 ft 1 in Weight: 157 lb 2 oz BMI 29.7 BP 120/82 H Intake Visit Reasons: right side pain/US room 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 Erendira Velasco 02/25/22 Miguel Angel 37 live - full term C- section Male [facility] Hal Delivery Date: 12/05/19 Last Updated by: Valerie Escoto Gestational diabetes, small for gestational age Delivery Date: 02/25/22 Last Updated by: Jaclyn Freire decl LTCS STAT. baby transported to [place] with anemia and passed @ 1812 of [...] Mcgregor DO; No Primary Care Physician~ Signed [facility] Work Phone: 1(253) 558-992805-10-2022 NoteHemoglobin EvaluationMay 2021 10:22am10.3 [facility] Work Phone: 1(225) 159-392305-10-2022 NoteHemoglobin EvaluationMay 2021 10:22am10.3 [facility] Work Phone: 1(571) 649-764905-10-2022 NoteHemoglobin EvaluationMay 2021 10:22am10.3 [facility] Work Phone: 1(238) 611-777101-05-2022 NoteHNO ID: [id number] Author: Heraclio Wilcox MA Service: ? Author Type: Toggler Type: Progress Notes Filed: 07/25/2021 3:00 PM [...] Heraclio Wilcox MA July 25, 2021 2:56 [facility]01-04-2022 NotePatient Outreach (NETNAV) YESSI ANNE ([id number]) 1990 F Date Time Provider Department 07/24/21 [...] dizziness Date Reviewed: 05/07/2018 Reviewed by: Kate ([facility]) HILARIA Lincoln - Fully Assessed Reason for [...] 04/23/2016 Encounter Status:Closed by HERACLIO WILCOX on 07/25/21[facility] complaint+Reason for visit Narrative* Chief Complaint med check RIGHT SHOULDER PAIN Neck pain Back pain COVID-19 Vertigo E-ORDER Reason for Visit depressio n Right shoulder strain Spasm of thoracic back muscle Back pain Segmental and somatic dysfunction of cervical region Segmental and somatic dysfunction of thoracic region Back pain Segmental and somatic dysfunction of thoracic region Vertigo [facility] Work Phone: Evaluation note* Diagnosis Onset [...] and somatic dysfunction of thoracic region acute [facility] Work Phone: Evaluation note* Diagnosis Onset [...] thoracic region acute Supervision of normal acute [facility] Work Phone: Evaluation note* Diagnosis Onset [...] currently resolved resolved Supervision of normal resolved [facility] Work Phone: Evaluation note* Diagnosis Onset [...] thoracic region acute care and examination acute [facility] Work Phone: Evaluation note* Diagnosis Onset [...] thoracic region acute care and examination acute [facility] Work Phone: Evaluation note* Diagnosis Onset [...] and examination acute Left thyroid nodule acute [facility] Work Phone: Evaluation note* Diagnosis Onset [...] and examination acute Left thyroid nodule acute [facility] Work Phone: Evaluation note* Diagnosis Onset Date Resolution Status depression acute Right shoulder strain acute Spasm of thoracic back muscle acute Back pain acute Segmental and somatic dysfunction of cervical region acute Segmental and somatic dysfunction of thoracic region acute Back pain acute Segmental and somatic dysfunction of thoracic region acute Vertigo noneactive [facility] Work Phone: Evaluation note* Diagnosis Onset Date Resolution Status Vertigo noneactive Back pain acute Segmental and somatic dysfunction of cervical region acute Segmental and somatic dysfunction of lumbar region acute Segmental and somatic dysfunction of thoracic region acute [facility] Work Phone: Evaluation note* Diagnosis Onset Date Resolution Status Vertigo noneactive Back pain acute Segmental and somatic dysfunction of cervical region acute Segmental and somatic dysfunction of lumbar region acute Segmental and somatic dysfunction of thoracic region acute Ectopic acute [facility] Work Phone: Evaluation note* Diagnosis Onset [...] and somatic dysfunction of thoracic region acute [facility] Work Phone: evaluation note* Diagnosis Onset [...] and somatic dysfunction of thoracic region acute [facility] Work Phone: Evaluation note* Diagnosis Onset [...] and somatic dysfunction of thoracic region acute [facility] Work Phone: evaluation note* Diagnosis Onset [...] and somatic dysfunction of thoracic region acute [facility] Work Phone: Evaluation note* Diagnosis Onset [...] acute Encounter for routine gynecological examination noneactive [facility] Work Phone: Evaluation note* Diagnosis Onset [...] of thoracic region acute Pelvic pain acute [facility] Work Phone: Evaluation note* Diagnosis History of [facility] Diagnosis Hypoglycemia- Primary Hypoglycemia, unspecified documented in this encounter [facility] Health Summary Purpose Family History No Family [...] Will No August 20 5:47pm Power of Coal Unloader No August 20, 2021 5:47pm Advance Directive Response Recorded Date/ Time Living Will No February 04, 2022 10:16am Power of Coal Unloader No February 04 10:16am Advance Directive Response Recorded Date/ Time Living Will No February 25, 2022 2:16pm Power of Coal Unloader No February 25 2:16pm Advance Directive Response Recorded Date/ Time Living Will No May 03 3:45pm Power of Coal Unloader No May 03, 2022 3:45pm Advance Directive Response Recorded Date/ Time Living Will No May 03 2:45pm Power of Coal Unloader No May 03, 2022 2:45pm Date Activated [...] 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 xfer of care from [facility] OBGYN, approx 31 wks GROWTH Adjustment 33wk [...] 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 xfer of care from [facility] OBGYN, approx 31 wks GROWTH Adjustment 33wk [...] Back pain INT LABS INT LABS Annual (COMPLETION ENGINEER) Reason for Visit Ectopic Back pain Segmental [...] Back pain INT LABS INT LABS Annual (COMPLETION ENGINEER) LEFT THYROID NODULE Reason for Visit Ectopic [...] Back pain INT LABS INT LABS Annual (COMPLETION ENGINEER) LEFT THYROID NODULE right side pain/US room [...] section and content) DATE CREATED AUTHOR 10/08/2021 [facility] DATE CREATED AUTHOR AUTHOR'S ORGANIZ ATION 01/31/2025 [facility] DATE CREATED AUTHOR AUTHOR'S ORGANIZ ATION 03/02/2025 [facility] DATE CREATED AUTHOR AUTHOR'S ORGANIZ ATION 03/04/2025 [facility] Care Teams (unrecognized sec tion and [...] Physician Primary Care Provider Active [address] CABINETMAKER SUPERVISOR, CABINETMAKER SUPERVISOR-C Attending Provider, Referring Provider Active Team Status: Inactive Member Role Status Dates No Primary Care Physician Primary Care Provider Active [address] CABINETMAKER SUPERVISOR, CABINETMAKER SUPERVISOR-C Attending Provider, Referring Provider Active Team Status: [...] Active Health Risk Assessment Attending Provider Active Sales Merchandiser Relationship Specialty Start Date End Date No Primary Care[place] [address] PCP - General Pediatrics 01/23/22 Macarena Bourne MD Top Precipitator Operator Obstetrics Gynecology 08[facility]13[facility]19 [facility] [place] [address] Genetic Counselor Genetics 07/04/22 Sales Merchandiser Relationship Specialty Start Date End Date No Primary [place] [address] PCP - General Pediatrics 01/23/22 Macarena Bourne MD Top Precipitator Operator Obstetrics Gynecology 08/13/19 [facility] [address] Genetic Counselor Genetics 07/04/22 Reason for Visit (unrecogniz ed section and content) Reason Comments Hypoglycemia Patient transfer [facility] arely rodriguez for low blood sugars. Specialty Diagnoses / Procedures Referred By Marichuy pace Referred To Contact Diagnoses Hypoglycemia Procedures . Alejandra Tena, DO [address] [address] Phone: tel: fax: [facility] [address] [place] [address] Phone: tel: Referral ID Status Reason Start Date Expiration Date Visits Re quested Visits Authorized [id number] 1 Scheduled Active and Recently Administ [...] BE BASED ON THE PRIMARY CLINICAL RECORDS. [facility] [employer] [facility]. provides no warranty or guarantee of the accuracy or completeness of information in this document.
[2025-03-06 01:44] LABS: Color, Urine Yellow (Yellow); Glucose, Dipstick 100 mg/dl (Normal); Ketone-Dipstick 15 mg/dl (Negative); Leukocyte Esterase-Dipstick 500 /ul (Negative); Nitrite-Dipstick Negative (Negative); Occult Blood-Urine Negative /ul (Negative); Protein-Dipstick 15 mg/dl (Negative); Specific Gravity, Urine 1.020 (1.002-1.030); Urine Bilirubin Dipstick Negative (Negative)
[2025-03-06] MEDS: Lactated Ringers 1,000 ML 999 ML IV ×2 (02:20→11:35)
--- NOTE | 2025-03-06 08:28 | US_ITS ---
PROCEDURE: OB BIOPHYSICAL PROF W/O NST 03/06/2025 REASON FOR EXAM: QUESTIONABLE STRIP PER DOCTOR TECHNIQUE: OB BIOPHYSICAL PROF W/O NST COMPARISON: 03/04/2025 FINDINGS Number: 1 Single live intrauterine in vertex presentation with heart rate of 145 beats per minute. DOROTHY measures 6.2 cm largest fluid pocket measuring 2 cm, there has been a decrease in fluid since the previous study with the largest pocket measured 3.1 cm and of the DOROTHY measures 9.25 cm Placenta is anterior, not low lying with grade 1 changes Biophysical profile measures 8/8 US/OB Biophysical Prof W/O NST IMPRESSION: Biophysical profile measures 8/8 Single live intrauterine with heart rate of 145 beats per minute. DOROTHY level still normal but has decreased since the previous study Reading Location: [id number]
--- NOTE | 2025-03-06 10:32 | OB.TRI.HP_ITS ---
HPI - General HPI Narrative KIKO ANNE, is a 35 F who presents for irregular contractions and isolated heart rate deceleration. She denies any vaginal bleeding or loss of fluid admits movement but it is changed over the last few days. Maternal Data Information ANISA Calculator Estimated Delivery Date Method Current WG Current Estimate 04/17/25 Ultrasound #1 34w 0d PFSH PFSH Medical History Threatened Acute bronchitis, unspecified Concentration deficit History of depression PTSD (post-traumatic stress disorder) Wears glasses Wears contact lenses Depression Anxiety Thyroid disease Ectopic Anemia Asthma Non-smoker delivery delivered Decreased movements in third trimester Abnormal Pap smear of cervix Right foot sprain Right ankle sprain Frequent headaches Cyst of face Sprain of right hand Right wrist sprain SGA (small for gestational age), , affecting care of mother, antepartum Gestational diabetes Asthma Acute wheezy bronchitis Home Medications ?Medication ?Instructions ?Recorded ?Last Taken ?Type hydroxyzine HCl 10 mg tablet 10 mg PO TID PRN anxiety #90 tabs 07/06/24 Unknown Rx ondansetron 4 mg disintegrating 4 mg PO Q6H PRN nausea and 09/08/24 Unknown Rx tablet vomiting #90 tabs bupropion HCl 150 mg tablet,12 hr 150 mg PO BID 90 day s #180 ea 12/07/24 03/04/25 08:00 Rx sustained-release 150 mg blood-glucose sensor (FreeStyle #1 ea 01/06/25 Unknown Rx Wolfgang 2 Plus Sensor device) flash glucose scanning reader #1 ea 01/06/25 Unknown R x (FreeStyle Wolfgang 2 [place]) pen needle, diabetic 31 gauge x #100 ea 01/06/25 Unkno wn Rx / (Droplet Pen Needle) pyridoxine (vitamin B6) 100 mg 100 mg PO QDAY #14 tabs 01/19/25 03/03/25 21:00 Rx tablet 100 mg blood sugar diagnostic (Blood #120 ea 01/25/25 Unknown Rx Glucose Test strips) blood-glucose meter #1 ea 01/25/25 Unknown Rx lancets 30 gauge (Droplet Lancets) #200 ea 01/25/25 Un known Rx aspirin 81 mg tablet,delayed 81 mg PO DAILY 02/22/25 0 03/03/25 21:00 History release (Adult Low Dose Aspirin) 81 mg omeprazole magnesium 20 mg 20 mg PO DAILY 02/22/25 21:00 History tablet,delayed release (Prilosec 20 mg OTC) breast pump #1 ea 03/04/25 Unknown Rx Allergy/AdvReac Type Severity Reaction Status Date / Time doxycycline AdvReac Mild Nausea Verified 03/05/25 10:22 Family History Grandmother Breast cancer Lung cancer Father Hypertension Mother Hypertension Thyroid disorder Asthma Grandfather Colon cancer Lung cancer Mother Diabetes Sister Depression Surgical History Previous section H/O unilateral salpingectomy (~02/12/24) H/O laparoscopy History of tonsillectomy Social History household members: spouse and children housing: house current occupational status: employed current occupation: [employer] pets and animals: Yes Smoking Status: Never smoker alcohol intake: never substance use type: does not use what type of physical activity do you participate in: none do you feel safe at home: Yes additional social history: - Rod History 6 Elective abortions Hx Para 1 Spontaneous abortions 1 Hx # Term Pregnancies 2 Ectopic pregnancies 2 Hx # Pregnancies Multiple births # of living children 1 Past Pregnancies Del. Date Name GA/Weeks Outcome Route Bth Weight Infant Gen Labor Lgth Anesthesia Del Locatn Provider FOB Unknown 2017 SAB Unknown 2022 Ectopic Unknown 2023 Ectopic 12/05/19 Gretel 39 live - full term 6lbs 1oz Female 12 hours epidural [facility] Dr. Erendira Velasco 02/25/22 Miguel Angel 37 live - full term Male [facility] Hal Delivery Date: 12/05/19 Last Updated by: Valerie Escoto Gestational diabetes, small for gestational age Delivery Date: 02/25/22 Last Updated by: Jaclyn Freire decl LTCS STAT. baby transported to [facility] with anemia and passed @ 1812 of pulmonary hemorrhage Visit Details Expected Delivery Route/Plan TOLAC if able patient counseled regarding risks/benefits of trial of labor versus repeat . ACOG/uptodate education given to patient. [] % likelihood of success per calculator TOLAC consent form signed: [] Plans Covid status: [] Flu vaccine: [] Tdap vaccine: [] Rhogam: [] LARC form signed: [] Problem list reviewed and updated with the most current plan of care details and appropriate orders placed. Relevant counseling for the gestational age provided. Continue routine care and follow up unless otherwise noted in visit notes/problem list details OB Flowsheet Initial Weight: 138 lb Date -?-?-?-?-?-?-?-?-?-?-?-?- EGA Weight BP Urine Prot -?-?-?-?-?-?-?-?-?-?-?-?- Glucose FHR FuHt Pres Dilation -?-?-?-?-?-?-?-?-?-?-?-?- Effaced St Visit Note 08/23/24 -?-?-?-?-?-?-?-?-?-?-?-?- 6w 1d 138 lb 2 oz (+2 oz) 102/72 -?-?-?-?-?-?-?-?-?-?-?-?- -?-?-?-?-?-?-?-?-?-?-?-?- SM- GS 18mm and ys seen possible 1 mm early pole 08/30/24 -?-?-?-?-?-?-?-?-?-?-?-?- 7w 1d 138 lb (+0 oz) 100/70 -?-?-?-?-?-?-?-?-?-?-?-?- 130 -?-?-?-?-?-?-?-?-?-?-?-?- SM- no vb crampi ng measuring 6w4d .65cm cons with LMP 09/08/24 -?-?-?-?-?-?-?-?-?-?-?-?- 8w 3d 138 lb (+0 oz) 110/77 Negative -?-?-?-?-?-?-?-?-?-?-?-?- Negative 169 -?-?--?-?-?-?-?-?-?-?-?-?- KW- work in for spotting after vomiting. CRL cons with dates KW- work in for spotting aft er vomiting. CRL cons with dates. reassurance given and zofran given 09/15/24 -?-?-?-?-?-?-?-?-?-?-?-?- 9w 3d 138 lb 2 oz (+2 oz) 111/76 -?-?-?-?-?-?-?-?-?-?-?-?- 150 -?-?-?-?-?-?-?-?-?-?-?-?- SM- some spottin g on and off, possible irregular vascuatiry seen over cervix- recommend MFM consult in the next week or two to evaluate 10/06/24 -?-?-?-?-?-?-?-?-?-?-?-?- 12w 3d 135 lb (-3 lb) 96/69 -?-?-?-?-?-?-?-?-?-?-?-?- 160 -?-?-?-?-?-?-?-?-?-?-?-?- SM- occasional s potting, having vomiting no lof 10/20/24 -?-?-?-?-?-?-?-?-?-?-?-?- 14w 3d 134 lb 4 oz (-3 lb 12 oz) 98/66 Negative -?-?-?-?-?-?-?-?-?-?-?-?- Negative 160 -?-?-?-?-?-?-?-?-?-?-?-?- SM- no vb crampi ng nausea improving 11/09/24 -?-?-?-?-?-?-?-?-?-?-?-?- 17w 2d 132 lb 4 oz (-5 lb 12 oz) 101/67 -?-?-?-?-?-?-?-?-?-?-?-?- 155 -?-?-?-?-?-?-?-?-?-?-?-?- SM- no vb crampi ng still having nausea, plan afp today, US scheduled 12/08/24 -?-?-?-?-?-?-?-?-?-?-?-?- 21w 3d 136 lb (-2 lb) 97/66 Negative -?-?-?-?-?-?-?-?-?-?-?-?- Negative 148 -?-?-?-?-?-?-?-?-?-?-?-?- JV- anatomy scan overall normal but needs to return for repeat views in 4 weeks. Also recommended to have a 32 week and 36 week ultrasound. plan is to deliver at 37 weeks. give steroids week of 36. wants if possible. 01/06/25 -?-?-?-?-?-?-?-?-?-?-?-?- w 4d 137 lb 2 oz (-14 oz) 103/64 Negative -?-?-?-?-?-?-?-?-?-?-?-?- Negative 141 -?-?-?-?-?-?-?-?-?-?-?-?- FAVIAN dickson is wor ried about the baby's head size. She also is nervous about the OR and requests IOL (after ) wants to do wolfgang system for monitoring glucose as is nervous about vomiting the glucola 01/17/25 -?-?-?-?-?-?-?-?-?-?-?-?- 27w 1d 134 lb 8 oz (-3 lb 8 oz) 103/73 -?-?-?-?-?-?-?-?-?-?-?-?- 147 26 -?-?-?-?-?-?-?-?-?-?-?-?- FAVIAN Dickson's gluc ose log shows hypogylcemia down to the 50's and she is symptomatic. She is adding protein with her meals. recommend glucose tabs. She is also not gaining weight in despite a regular balanced diet. Labs ordered and will consul MFM. 02/01/25 -?-?-?-?-?-?-?-?-?-?-?-?- 29w 2d 133 lb 8 oz (-4 lb 8 oz) 90/66 -?-?-?-?-?-?-?-?-?-?-?-?- 145 27 -?-?-?-?-?-?-?-?-?-?-?-?- JV- s/p hospital stay at [facility] for hypoglycemia and decels. neither was noted during admission. she was given iv iron transfusion. now has pain and cording of right antecubital area. doppler ordered. lost another pound since last visit. start boost supplements with her meals. sees Dr. Joshi Friday. normal growth on scan at [facility] 02/07/25 -?-?-?-?-?-?-?-?-?-?-?-?- 30w 1d 134 lb 2 oz (-3 lb 14 oz) 99/68 Negative -?-?-?-?-?-?-?-?-?-?-?-?- Negative 140 30 -?-?-?-?-?-?-?-?-?-?-?-?- Sm- per mfm not tracking BS unless symptomatic, trcaking bps as needed per symptoms, watching fluid and protein intake, plan weekly bpp and nst at 32 sees mfm next week. 02/18/25 -?-?-?-?-?-?-?-?-?-?-?-?- 31w 5d 197 lb 2 oz (+59 lb 2 oz) 137 lb 2 oz (-14 oz) 94/64 -?-?-?-?-?-?-?-?-?--?-?-?- 135 31 -?-?-?-?-?-?-?-?-?-?-?-?- SM- no vb lof go od fm no regular ctx 02/22/25 -?-?-?-?-?-?-?-?-?-?-?-?- 32w 2d 137 lb 4 oz (-12 oz) 100/64 Negative -?-?-?-?-?-?-?-?-?-?-?-?- Negative 140 -?-?-?-?-?-?-?-?-?-?-?-?- JV- NSt not reac tive after 40 minutes and after giving an ensure drink. MFM wrote in last note that ac is <1st% and to deliver 38-39 weeks. sending note to clarify as we were under the impression that we would deliver by 37 weeks 03/04/25 -?-?-?-?-?-?-?-?-?-?-?-?- 33w 5d 137 lb (-16 oz) 102/67 -?-?-?-?-?-?-?-?-?-?-?-?- 140 -?-?-?-?-?-?-?-?-?-?-?-?- SM- no vb lof go od fm n reulgar ctx isolated variable plan steroids today and bpp extended monitoring ROS Constitutional Constitutional: Reports systems reviewed and no addt'l complaints, except as documented and as per HPI ENT HEENT: Reports systems reviewed and no addt'l complaints, except as documented Cardiovascular Cardiovascular: Reports systems reviewed and no addt'l complaints, except as documented Respiratory/Chest Respiratory/Chest: Reports systems reviewed and no addt'l complaints, except as documented Gastrointestinal Gastrointestinal: Reports as per HPI Genitourinary Genitourinary: Reports as per HPI Musculoskeletal Musculoskeletal: Reports systems reviewed and no addt'l complaints, except as documented Integumentary Integumentary: Reports systems reviewed and no addt'l complaints, except as documented Neurologic Neurologic: Reports systems reviewed and no addt'l complaints, except as documented Physical Exam Const alert, oriented x3 and no apparent distress HEENT Head and Scalp: normocephalic and atraumatic Neck full ROM and no lymphadenopathy Chest inspection of chest normal Resp normal respiratory effort GI GI Narrative: gravid, abdomen nontender, AGA Manual OB Exam: dilated, effaced and station NST FHR Rate Baby A Baseline: 130 Variability:: Moderate Accelerations:: 15 x 15 Decelerations:: Variable (30 sec down in the 90s) NST Reactive:: Yes FHR Category:: Category II Uterine Activity:: Irregular Assessment & Plan (1) Variable heart rate decelerations, antepartum: COMMENT: steroids given 03/04 02/25 bpp (2) Supervision of high-risk : COMMENT: PRR ANISA 04/17/25 jerald Majano (Miguel Angel-[facility]) Rod (3) History of loss: COMMENT: maternal hemorrhage, pulmonary hemorrhage s/p MFM consult - believes could have been covid related hemorrhage on recent notes. weekly BPP/dopplers, weekly nsts from 32 on, delivery 37. (wants to if possible) (4) : QUALIFIERS: Weeks of gestation: 33 weeks Qualified Code(s): Z3A.33 - 33 weeks gestation of COMMENT: NIPT low risk, nl anatomy (5) Previous section: COMMENT: if able, may struggle with PTSD in OR. (6) depression: COMMENT: counseling- PTSD, celexa. (7) Hypoglycemia: (8) Poor weight gain of : COMMENT: boost drinks with meals (9) Pain of right upper extremity: (10) Superficial venous thrombosis of arm: PLAN: Plan Discussed with patient recommend biophysical profile, status post steroids recommend extended monitoring will keep in house throughout the day and continue monitoring. Charges/Coding Multi Select Codes Visit Charges Office Visit/Consults: 79326 OV L3 Est 20min Urinary/Genital Urinary/Genital CPT Codes: 77446-33 non-stress test Interp
--- OUTSIDE RECORDS SUMMARY | 2025-03-06 10:51 | XMS RPT_ITS | CCD ---
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 Analia Mcgregor Attending Provider [phone] Dr. Saritha Salgado Attending Provider [phone] Dr. Saritha Salgado Admit Provider Dr. Saritha [...] available Dr. Analia Mcgregor Attending Provider [phone] Dr. Reginaldo Saravia Attending Provider Care Physician, [...] Attending Provider [phone] SAMIA Scott Attending Provider [phone] Care Physician, No Primary Primary Care Provider [...] Erendira Holloway MD, Summer T Unavailable No vapor coater, Md Primary Care Provider Gemini vailable [facility] [place] Unavailable Erendira Holloway MD, Summer T Unavailable Motter [facility], Whitney Unavailable Unavailable Primary Care Provider UnavailALEJANDRA [...] Unavailable ANALIA ZAIDI Referring Unavailab le TU, [facility] Primary Care Unavailable JAYSON BATES Attending Unavailable ANALIA ZAIDI Referring Unavailab PAM Everett Attending Unavailable DOC, [facility] Primary Care Unavailable DOC, [facility] Primary Care Unavailable SARITHA SALGADO Referring Unavailabl [...] [DOXYCYCLINE] Drug Allergy 2 Rash, Nausea Only [facility] (3 sources) Minocycline; Translations: [MINOCYCLINE] Drug Allergy 6 Nausea Only [facility] (3 sources) Ondansetron; Translations: [ONDANSETRON] Drug Allergy 2 Other (See Comments), GI Intolerance [facility] (1 source) Doxycycline Drug Allergy 5 [facility] Repository Medications Current Medications Medication Drug [...] 03-04-2025 OB Biophysical Prof W/O NST Normal [facility] OB Triage Progress Noteon OB Triage Progress Note Normal [facility] Emt/Paramedic Office Visit Reporton 03-04-2025 Emt/Paramedic Office Visit Report Normal [facility] OB Biophysical Prof W/O NSTo n 02-22-2025 OB Biophysical Prof W/O NST Normal [facility] OB Triage Physician Noteon 0 02-22-2025 OB Triage Physician Note Normal [facility] Emt/Paramedic Office Visit Reporton 02-22-2025 Emt/Paramedic Office Visit Report Normal [facility] Emt/Paramedic Office Visit Reporton 02-18-2025 Emt/Paramedic Office Visit Report Normal [facility] Progress Noteon 02-17-2025 Balance Bridge Inspector Authentication Interface Message Text [facility] Co-Management Visit Yessi Anne is being seen [...] -40 minutes chart review and documentation Normal [facility] Free T3on 02-07-2025 Free T3 [Mass/Vol] 2.2 pg/mL Normal 2.18-3.98 [facility] Comment on above: Performed By: #### L 506.0400, L501.26378, [id number] ####[facility] [address] [place], [address] Emt/Paramedic Office Visit Reporton 02-07-2025 Emt/Paramedic Office Visit Report Normal [facility] T4 Free Directon 02-07-2025 T4 FREE DIRECT 1.00 ng/dL Normal 0.76-1.46 [facility] Comment on above: Performed By: #### L 506.0400, L501.76674, L501.9520 ####[facility] [address] [place], [address] Thyroid Stim Hormone (TSH)on 02-07-2025 TSH 1.360 uIU/mL Normal 0.300-4.200 [facility] Comment on above: Performed By: #### L 506.0400, L501.14891, L501.9520 ####[facility] [address] [place], [address] Progress Noteon 02-04-2025 Balance Bridge Inspector Authentication Interface Message Text [facility] Co-Management Visit Yessi Anne is being seen [...] time spen (more content not included)... Normal [facility] Emt/Paramedic Office Visit Reporton 02-01-2025 Emt/Paramedic Office Visit Report Normal [facility] Venous Duplex US, Unilateral on 02-01-2025 Venous Duplex US, Unilateral Normal [facility] C-Peptideon 01-28-2025 C PEPTIDE 3.1 ng/mL Normal 1.1-4.4 [facility] Comment on above: Result Comment: C-Pe ptide reference interval is for fasting patients. Performed By: #### L 3100.7750, L3300.3500, L509.7001 ####[facility] [address] [place] [id number] Celiac Disease Profileon ENDOMYSIAL IGA Negative Normal Negative [facility] Comment on above: Performed By: #### L 3410.2400 ####[facility] [address] [facility] [address] IMMUNOGLOB A QN 161 mg/dL Normal 87-352 [facility] Comment on above: Result Comment: Perf ormed at: - [facility] [address] [id number] Director: Joseph Doe PhD, Phone: [phone] Performed By: #### L 3410.2400 ####[facility] [address] [place], [address] tTG IGA <2 Normal 0-3 [facility] Comment on above: Result Comment: Nega tive 0 - 3 Weak Positive 4 - 10 Positive >10 Tissue Transglutaminase (tTG) has been identified as the endomysial antigen. Studies have demonstr- ated that endomysial IgA antibodies have over 99% specificity for gluten sensitive enteropathy. Performed By: #### L 3960.2400 ####[facility] [address] [place], [place], [address] Insulin Levelon 01-28-2025 INSULIN,FASTING 24.6 uIU/mL Normal 2.6-24.9 [facility] Comment on above: Result Comment: Perf ormed at: - [facility] [address] [id number] Director: Joseph Doe PhD, Phone: [phone] Performed By: #### L 2901.4858, Z6301.3257, S629.2099 ####[facility] [address] [place], [place], [address] [id number] 01-27-2025 [id number] Date: 01/27/2025 Name: Yessi Anne : 1990 [facility] Patient Information Primary Caregiver: Self Accompanied by/Relationship: S/O;Family Marital Status: Support System: SO/Family Mandaeism/Cultural Factors: None Activities of Daily Living Communication: [...] Developmental Delay: N/A Children's Services: N/A Normal [facility] ABO and Rh group Confirm Nom (Bld)on 01-27-2025 ABO group Nom (Bld) A [facility] (RBC) Positive [facility] BLOOD TYPE AND SCREEN GELon 01-27-2025 ABO GROUPING A Normal [facility] Comment on above: Order Comment: HOLD. Specimen is valid for 3 days - nurse to verify valid specimen Performed By: #### L [id number] #### Hydraulic Dredge Operator: RADHA VASQUEZ ([id number]) [facility] ([facility]) [address] [place] [address] RH TYPE IN BLOOD Positive Normal [facility] Comment on above: Order Comment: HOLD. Specimen is valid for 3 days - nurse to verify valid specimen Performed By: #### L [id number] #### Hydraulic Dredge Operator: RADHA VASQUEZ ([id number]) [facility] ([facility]) [address] [place] [address] Bedside Glucoseon 01-27-2025 FINGERSTICK GLU 122 mg/dL High 74-106 [facility] Comment on above: Result Comment: ERIBERTO GIRALDO OF PATIENT CARE PER NURSING PROTOCOL Performed By: #### L 501.080 ####[facility] [address] [place], [place], [id number] Blood type and Crossmatch pa egmini (Bld)on 01-27-2025 ABO group Nom (Bld) A [facility] Blood group antibody screen GEL Ql Negative [facility] Dianxin D Ag Ql (RBC) Positive [facility] CBC (HEMOGRAM)on 01-27-2025 Erythrocyte distribution width (RBC) [Ratio] 12.2 % Normal 11.5-15.0 [facility] Comment on above: Performed By: #### L [id number] #### Hydraulic Dredge Operator: RADHA VASQUEZ ([id number]) [facility]) [address] [place] [address] Hematocrit (Bld) [Volume fraction] 28.3 % Low 35.0-47.0 [facility] Comment on above: Performed By: #### L [id number] #### Hydraulic Dredge Operator: RADHA VASQUEZ ([id number]) [facility]) [address] [place] [address] Hemoglobin (Bld) [Mass/Vol] 9.5 g/dL Low 11.7-16.0 [facility] Comment on above: Performed By: #### L [id number] #### Hydraulic Dredge Operator: RADHA VASQUEZ ([id number]) [facility]) [address] [place] [address] MCH (RBC) [Entitic mass] 30.5 pg Normal 26.0-34.0 [facility] Comment on above: Performed By: #### L [id number] #### Hydraulic Dredge Operator: RADHA VASQUEZ ([id number]) [facility] ([facility]) [address] [place] [address] MCHC 33.6 % Normal 30.5-36.0 [facility] Comment on above: Performed By: #### L [id number] #### Hydraulic Dredge Operator: RADHA VASQUEZ ([id number]) [facility]) [address] [place] [address] MCV (RBC) [Entitic vol] 91.0 fL Normal 77.0-99.0 [facility] Comment on above: Performed By: #### L [id number] #### Hydraulic Dredge Operator: RADHA VASQUEZ ([id number]) [facility]) [address] [place] [address] Platelet mean volume (Bld) [Entitic vol] 11.3 fL Normal 9.0-12.7 [facility] Comment on above: Performed By: #### L [id number] #### Hydraulic Dredge Operator: RADHA VASQUEZ ([id number]) [facility] [address] [place] [address] Platelets (Bld) [#/Vol] 261 10*3/uL Normal 140-440 [facility] Comment on above: Performed By: #### L [id number] #### Hydraulic Dredge Operator: RADHA VASQUEZ ([id number]) [facility]) [address] [place] [address] RBC (Bld) [#/Vol] 3.11 10*6/uL Low 3.80-5.20 [facility] Comment on above: Performed By: #### L [id number] #### Hydraulic Dredge Operator: RADHA VASQUEZ ([id number]) [facility]) [address] [place] [address] WBC (Bld) [#/Vol] 9.0 10*3/uL Normal 3.6-10.7 [facility] Comment on above: Performed By: #### L [id number] #### Hydraulic Dredge Operator: RADHA VASQUEZ ([id number]) [facility] ([facility]) [address] [place] [address] CBC panel Auto (Bld)on 01-27 Erythrocyte distribution width (RBC) [Ratio] 12.2 % 11.5 - 15.0 % [facility] Hematocrit (Bld) [Volume fraction] 28.3 % Low 35.0 - 47.0 % [facility] Hemoglobin (Bld) [Mass/Vol] 9.5 g/dL Low 11.7 - 16.0 g/dL [facility] Interpretation and review of laboratory results Abnormal [facility] MCH (RBC) [Entitic mass] 30.5 pg 26.0 - 34.0 pg [facility] MCHC (RBC) [Mass/Vol] 33.6 % 30.5 - 36.0 % [facility] MCV (RBC) [Entitic vol] 91 fL 77.0 - 99.0 fL [facility] Platelet mean volume (Bld) [Entitic vol] 11.3 fL 9.0 - 12.7 fL [facility] Platelets (Bld) [#/Vol] 261 10*3/uL 140 - 440 10*3/uL [facility] RBC (Bld) [#/Vol] 3.11 10*6/uL Low 3.80 - 5.2 0 10*6/uL [facility] WBC (Bld) [#/Vol] 9 10*3/uL 3.6 - 10.7 10*3/uL [facility] CHLAMYDIA/GONORRHEAon 2024 CHLAMYDIA/GONORRHEA NEISSERIA GONORRHOEA E DNA [...] should be collected if clinically indicated. Normal [facility] Comment on above: Performed By: #### L [id number], [id number] #### Hydraulic Dredge Operator: RADHA VASQUEZ ([id number]) [facility]) [address] [place] [address] COMPREHENSIVE METABOLIC PANE Rico 01-27-2025 Albumin [Mass/Vol] 2.5 g/dL Low 3.5-5.0 [facility] Comment on above: Performed By: #### L [id number] #### Hydraulic Dredge Operator: RADHA VASQUEZ ([id number]) [facility]) [address] [place] [address] ALP [Catalytic activity/Vol] 75 U/L Normal 40-150 [facility] Comment on above: Performed By: #### L [id number] #### Hydraulic Dredge Operator: RADHA VASQUEZ ([id number]) [facility]) [address] [place] [address] ALT [Catalytic activity/Vol] 6 U/L Normal <30 [facility] Comment on above: Performed By: #### L [id number] #### Hydraulic Dredge Operator: RADHA [id number]) [facility]) [address] [place] [address] Anion gap [Moles/Vol] 6 mmol/L Normal 3-13 [facility] Comment on above: Performed By: #### L [id number] #### Hydraulic Dredge Operator: RADHA VASQUEZ ([id number]) [facility]) [address] [place] [address] AST [Catalytic activity/Vol] 18 U/L Normal <34 [facility] Comment on above: Performed By: #### L [id number] #### Hydraulic Dredge Operator: RADHA VASQUEZ ([id number]) [facility] ([facility]) [address] [place] [address] Bilirubin [Mass/Vol] 0.2 mg/dL Normal <1.2 [facility] Comment on above: Performed By: #### L [id number] #### Hydraulic Dredge Operator: RADHA VASQUEZ ([id number]) [facility] ([facility]) [address] [place] [address] Calcium [Mass/Vol] 8.5 mg/dL Normal 8.4-10.2 [facility] Comment on above: Performed By: #### L [id number] #### Hydraulic Dredge Operator: RADHA VASQUEZ ([id number]) [facility]) [address] [place] [address] Chloride [Moles/Vol] 106 mmol/L Normal 98-107 [facility] Comment on above: Performed By: #### L [id number] #### Hydraulic Dredge Operator: RADHA VASQUEZ ([id number]) [facility]) [address] [place] [address] [place] CO2 [Moles/Vol] 22 mmol/L Normal 22-29 [facility] Comment on above: Performed By: #### L [id number] #### Hydraulic Dredge Operator: RADHA VASQUEZ ([id number]) [facility]) [address] [place] [address] Creatinine [Mass/Vol] 0.68 mg/dL Normal 0.57-1.11 [facility] Comment on above: Performed By: #### L [id number] #### Hydraulic Dredge Operator: RADHA [id number]) [facility]) [address] [place] [address] GLOMERULAR FILTRATION RATE ML/MIN/1.73 SQ M.PREDICTED >90.0 Normal >60.0 [facility] Comment on above: Result Comment: Calc ulation based on the Chronic Kidney Disease Epidemiology Collaboration (CKD-EPI) equation refit without adjustment for race Performed By: #### L [id number] #### Hydraulic Dredge Operator: RADHA VASQUEZ ([id number]) [facility] ([facility]) [address] [place] [address] Glucose [Mass/Vol] 79 mg/dL Normal 74-100 [facility] Comment on above: Performed By: #### L [id number] #### Hydraulic Dredge Operator: RADHA VASQUEZ ([id number]) [facility]) [address] [place] [address] Potassium [Moles/Vol] 3.5 mmol/L Normal 3.5-5.1 [facility] Comment on above: Result Comment: Plas ma potassium values may be up to 0.5 mmol/L lower than serum values. Performed By: #### L [id number] #### Hydraulic Dredge Operator: RADHA VASQUEZ ([id number]) [facility]) [address] [place] [address] [place] Protein [Mass/Vol] 6.3 g/dL Low 6.4-8.3 [facility] Comment on above: Performed By: #### L [id number] #### Hydraulic Dredge Operator: RADHA VASQUEZ ([id number]) [facility]) [address] [place] [address] [place] Sodium [Moles/Vol] 134 mmol/L Low 136-145 [facility] Comment on above: Performed By: #### L [id number] #### Hydraulic Dredge Operator: RADHA VASQUEZ ([id number]) [facility]) [address] [place] [address] [place] Urea nitrogen [Mass/Vol] 6 mg/dL Low 8-21 [facility] Comment on above: Performed By: #### L [id number] #### Hydraulic Dredge Operator: RADHA VASQUEZ ([id number]) [facility] ([facility]) [address] [place] [address] Comprehensive metabolic 1998 panelon 01-27-2025 Albumin [Mass/Vol] 2.5 g/dL Low 3.5 - 5.0 g/dL [facility] ALP [Catalytic activity/Vol] 75 U/L 40 - 150 U/L [facility] ALT [Catalytic activity/Vol] 6 U/L NINF - 30 U/L [facility] Anion gap [Moles/Vol] 6 mmol/L 3 - 13 mmol/L [facility] AST [Catalytic activity/Vol] 18 U/L NINF - 34 U/L [facility] Bilirubin [Mass/Vol] 0.2 mg/dL NINF - 1.2 mg/dL [facility] Calcium [Mass/Vol] 8.5 mg/dL 8.4 - 10. 2 mg/dL [facility] Chloride [Moles/Vol] 106 mmol/L 98 - 10 7 mmol/L [facility] CO2 [Moles/Vol] 22 mmol/L 22 - 29 mmol/L [facility] Creatinine [Mass/Vol] 0.68 mg/dL 0.57 - 1.11 mg/dL [facility] GFR/1.73 sq M.predicted (S/P/Bld) [Vol rate/Area] - PINF [facility] Comment on above: Calculation based on the Chronic Kidney Disease Epidemiology Collaboration (CKD-EPI) equation refit without adjustment for race Glucose [Mass/Vol] 79 mg/dL 74 - 100 mg/dL [facility] Interpretation and review of laboratory results Abnormal [facility] Potassium [Moles/Vol] 3.5 mmol/L 3.5 - 5.1 mmol/L [facility] Comment on above: Plasma potassium ayanna ues may be up to 0.5 mmol/L lower than serum values. Protein [Mass/Vol] 6.3 g/dL Low 6.4 - 8.3 g/dL [facility] Sodium [Moles/Vol] 134 mmol/L Low 136 - 145 mmol/L [facility] Urea nitrogen [Mass/Vol] 6 mg/dL Low 8 - 21 mg/dL [facility] ECG 12-LEADon 01-27-2025 ECG 12-LEAD IMPRESSION: Sinus rhythm Low voltage, precordial leads Normal [place] No ST or T wave changes Electronically Signed On 01-27-2025 08:44:08 EDT by Scott Lowe Normal [facility] GROUP B STREP SCREEN BY PCRo n 01-27-2025 GROUP B STREP SCREEN BY PCR GROUP B STREP SCREEN BY PCR Reference Not Detected Not Detected ORDER COMMENTS: Methodology: real-time PCR Normal [facility] Comment on above: Performed By: #### L [id number] #### Hydraulic Dredge Operator: RADHA VASQUEZ ([id number]) [facility] ([facility]) [address] [place] [address] Laboratory - Chemistry and C hemistry - challengeon 01-27-2025 Glucose [Mass/Vol] 122 mg/dL High 70 - 100 mg/dL [facility] Glucose [Mass/Vol] 84 mg/dL 70 - 100 mg/dL [facility] TSH Qn 3.5 m[IU]/L [facility] Glucose [Mass/Vol] 129 mg/dL High 70 - 100 mg/dL [facility] Magnesium [Mass/Vol] 2 mg/dL 1.6 - 2 .6 mg/dL [facility] MAGNESIUMon 01-27-2025 Magnesium [Mass/Vol] 2.0 mg/dL Normal 1.6-2.6 [facility] Comment on above: Result Comment: TRINA Horta COMMENTS: Higher values can be expected in females during menses. Performed By: #### L AB17, [id number], [id number], PMU141 #### Hydraulic Dredge Operator: RADHA VASQUEZ ([id number]) [facility] ([facility]) [address] [place] [address] Magnesium [Mass/Vol]on 01-27 Higher values can be expected in females during menses. [facility] N. gonorrhoeae DNA MAE+probe Ql (Cervical mucus)on 01-27-2025 C. trachomatis DNA MAE+probe Ql (Unsp spec) Not detected Not Detected [facility] Interpretation and review of laboratory results Normal [facility] N gonorrhoeae, DNA Probe Not detected Not Detected [facility] Methodology: real-ti me PCR This test is [...] specimen should be collected if clinically indicated. [place] Dianxin No Panel Informationon 01-27 1. Branch live [...] ultrasound findings do not guarantee normal outcomes. [id number] RADIOLOGY SYSTEM OBSTETRICS REPORT (Signed Final 01/27/2025 02:35 pm) PATIENT INFO: ID #: [id number] : [birth year] (34 yrs)(F) Name: YESSI ANNE Visit Date: 01/27/2025 09:29 am PERFORMED BY: Attending: Cory Stringer MD, RON, FACOG Performed By: Oni BROWER, VONDA Referred By: TRACI MONTILLA Location: [facility] IP Visit Type: Inpatient - Hospital SERVICE(S) PROVIDED: US >= 14 weeks [address] BPP w/out NST 04054 INDICATIONS: Poor weight gain Hypoglycemia VITAL SIGNS: [...] Normal appearance Interventr. Septum: Normal appearance Cardiac [place]: Normal appearance Diaphragm: Normal appearance 3 Vessel View: Normal appearance 3 V Trachea View: Normal appearance IVC: Normal Appearance Crossing: Normal appearance Abdomen Ventral Wal (more content not included)... [facility] Josemanuel Stringer MD - 01/27/2025 OBSTETRICS REPORT (Signed Final 01/27/2025 02:35 pm) PATIENT INFO: ID #: [id number] : [birth year] (34 yrs)(F) Name: YESSI ANNE Visit Date: 01/27/2025 09:29 am PERFORMED BY: Attending: Cory Stringer MD, RON, FACOG Performed By: Oni BROWER, RD Referred By: TRACI MONTILLA Location: [facility] IP Visit Type: Inpatient - Hospital SERVICE(S) PROVIDED: US >= 14 weeks [address]876 BPP w/out NST 78116 INDICATIONS: Poor weight gain Hypoglycemia VITAL SIGNS: [...] Normal appearance Interventr. Septum: Normal appearance Cardiac [place]: Normal appearance Diaphragm: Normal appearance 3 Vessel [...] - Normal appearance Cory Stringer MD, RON, [facility] Electronically Signed Final Report 01/27/2025 02:35 pm IMPRESSION: (more content not included)... [facility] Interpretation and review of laboratory results Abnormal [facility] Performed by: [address] [address] CLIA ID: [id number] [facility] Sinus rhythm Low voltage, precordial leads Normal [place] No ST or T wave changes Electronically Signed On 01-27-2025 08:44:08 EDT by Scott Lowe Scott Lopez MD - 01/27/2025 IMPRESSION: Sinus rhythm Low voltage, precordial leads Normal [place] No ST or T wave changes Electronically Signed On 01-27-2025 08:44:08 EDT by Scott Lowe [facility] Interpretation and review of laboratory results Normal [facility] Performed by: [address] [address] CLIA ID: [id number] [facility] Dianxin Radiology Study observation (narrative) [facility] Interpretation and review of laboratory results Abnormal [facility] Performed by: [address] [address] CLIA ID: [id number] [facility] Interpretation and review of laboratory results Normal [facility] No Panel InformationOrdered By: Josemanuel Stringer on 01-27-2025 [employer] Work Phone: No Panel InformationOrdered By: Scott Lowe on 01-27-2025 P [place] 66 degrees [employer] Work Phone: TN Interval 134 ms [facility] Work Phone: QRS [place] 84 degrees [facility] Work Phone: QRSD Interval 86 ms [facility] Phone: QT Interval 360 ms [facility] Work Phone: QTC Interval 420 ms [facility] Phone: T Wave [place] 52 degrees [facility] Phone: [facility] Work Phone: Nursing Noteon 01-27-2025 Nursing Note 1300 iron infusion complete, per DR. Stringer, may be discharged to home ., iv heplock removed, clean dry and intact., discharge papers given, no acute distress this afternoon, blood sugars trending normal and pt is asymptomatic at present time, feels reassured to go home., papers signed, ambulatory home Normal [facility] PHOSPHORUSon 01-27-2025 Phosphate [Mass/Vol] 3.0 mg/dL Normal 2.3-4.7 [facility] Comment on above: Performed By: #### L AB17, RRG081, [id number], AWQ750 #### Hydraulic Dredge Operator: RADHA VASQUEZ ([phone]) [address] Phosphate [Moles/Vol]on 01-18 Phosphate [Mass/Vol] 3 mg/dL 2.3 - 4 .7 mg/dL [facility] Progress Noteon 01-27-2025 Progress Note ------- Attestation [...] PRESENT ILLNESS: Presents as a transfer from [facility] for symptomatic hypoglycemia. Blood sugar here [...] PROVIDER: Dr. Stringer DISPOSITION: Admit to L&D [facility] T. vaginalis DNA MAE+probe Q l (Genital specimen)on 07-10-2025 Interpretation and review of laboratory results Normal [facility] Trichomonas vaginalis Not detected Not Detected [facility] Methodology: real-ti me PCR A negative result [...] sexual abuse or for other forensic purposes. [facility] THYROID STIMULATING HORMONEo n 01-27-2025 THYROID STIMULATING HORMONE 3.50 uIU/mL Normal 0.35-4.94 [facility] Comment on above: Performed By: #### L AB294 #### Hydraulic Dredge Operator: RADHA VASQUEZ ([phone]) [address] TRICHOMONAS VAGINALIS PCRon 01-27-2025 TRICHOMONAS VAGINALIS [...] abuse or for other forensic purposes. Normal [facility] Comment on above: Performed By: #### L [id number], [id number] #### Hydraulic Dredge Operator: RADHA VASQUEZ ([phone]) [address] TSH Qnon 01-27-2025 Interpretation and review of laboratory results Normal [facility] URINE CULTUREon 01-27-2025 Bacteria identified Cx Nom (U) URINE CULTURE Reference Normal urogenital keke present [ S = SUSCEPTIBLE R = RESISTANT I = INTERMEDIATE S-DD = Susceptible-dose dependent NS = Non-susceptible NO = No Interpretation ] Normal [facility] Comment on above: Performed By: #### L AB294 #### Hydraulic Dredge Operator: RADHA VASQUEZ ([phone]) [address] US BIOPHYSICAL PROFILE WO NON STRESS TESTINGon 01-27-2025 US BIOPHYSICAL PROFILE WO NON STRESS TESTING OBSTETRICS REPORT (Signed Final 01/27/2025 02:35 pm) PATIENT INFO: ID #: [id number] : [birth year] (34 yrs)(F) Name: YESSI ANNE Visit Date: 01/27/2025 09:29 am PERFORMED BY: Attending: Cory Stringer MD, RON, FACOG Performed By: Oni BROWER, RDMS Referred By: TRACI MONTILLA Location: [facility] IP Visit Type: Inpatient - Hospital SERVICE(S) PROVIDED: US >= 14 weeks [address] BPP w/out NST 79951 INDICATIONS: Poor weight gain Hypoglycemia VITAL SIGNS: [...] Normal appearance Interventr. Septum: Normal appearance Cardiac Cheshire: Normal appearance Diaphragm: Normal appearance 3 Vessel [...] 35%tile for (more content not included)... Normal [facility] US OB 14+ WEEKS SINGLE FETUS MATERNAL EVAL TRANSABDOMINALon 01-27-2025 US OB 14+ WEEKS SINGLE FETUS MATERNAL EVAL TRANSABDOMINAL OBSTETRICS REPORT (Signed Final 01/27/2025 02:35 pm) PATIENT INFO: ID #: [id number] : [birth year] (34 yrs)(F) Name: YESSI ANNE Visit Date: 01/27/2025 09:29 am PERFORMED BY: Attending: Cory Stringer MD, RON, FACOG Performed By: Oni BROWER, RDMS Referred By: TRACI MONTILLA Location: [facility] IP Visit Type: Inpatient - Hospital SERVICE(S) PROVIDED: US >= 14 weeks [address] BPP w/out NST 91993 INDICATIONS: Poor weight gain Hypoglycemia VITAL SIGNS: [...] Normal appearance Interventr. Septum: Normal appearance Cardiac Cheshire: Normal appearance Diaphragm: Normal appearance 3 Vessel [...] 35%tile for (more content not included)... Normal [facility] Vital signsOrdered By: Scott Lowe on 01-27-2025 Heart rate 82 /min bpm [facility] Work Phone: Bedside Glucoseon 01-26-2025 FINGERSTICK GLU 117 mg/dL High 74-106 [facility] Comment on above: Result Comment: ERIBERTO GIRALDO OF PATIENT CARE PER NURSING PROTOCOL Performed By: #### L 501.080 ####[facility] [address] [place], [address] FINGERSTICK GLU 86 mg/dL Normal 74-106 [facility] Comment on above: Result Comment: ERIBERTO GEMENT OF PATIENT CARE PER NURSING PROTOCOL Performed By: #### L 501.080 ####[facility] [address] [place], [address] FINGERSTICK GLU 74 mg/dL Normal 74-106 [facility] Comment on above: Result Comment: ERIBERTO GEMENT OF PATIENT CARE PER NURSING PROTOCOL Performed By: #### L 501.080 ####[facility] [address] [place], [address] FINGERSTICK GLU 53 mg/dL Low 74-106 [facility] Comment on above: Result Comment: ERIBERTO GEMENT OF PATIENT CARE PER NURSING PROTOCOL Performed By: #### L 501.080 ####[facility] [address] [place], [address] FINGERSTICK GLU 94 mg/dL Normal 74-106 [facility] Comment on above: Result Comment: ERIBERTO GEMENT OF PATIENT CARE PER NURSING PROTOCOL Performed By: #### L 501.080 ####[facility] [address] [place], [address] CBC W/Diff, Automatedon 07-0 9-5 Absolute Lymph 1.33 X10 3/uL Normal 0.83-4.51 [facility] Comment on above: Performed By: #### L 100.0100 ####[facility] [address] [place], [address] Absolute Neut 6.0 X10 3/uL Normal 2.0-7.7 [facility] Comment on above: Performed By: #### L 100.0100 ####[facility] [address] [place], [address] Basophils/100 WBC (Bld) 0.4 % Normal 0-1 [facility] Comment on above: Performed By: #### L 100.0100 ####[facility] [address] [place], [address] Eosinophils/100 WBC (Bld) 0.4 % Normal 0-5 [facility] Comment on above: Performed By: #### L 100.0100 ####[facility] [address] [place], [address] Erythrocyte distribution width (RBC) [Ratio] 12.1 % Normal 11.6-14.6 [facility] Comment on above: Performed By: #### L 100.0100 ####[facility] [address] [place], [address] Hematocrit (Bld) [Volume fraction] 30.1 % Low 37-47 [facility] Comment on above: Performed By: #### L 100.0100 ####[facility] [address] [place], [address] Hemoglobin (Bld) [Mass/Vol] 10.3 g/dL Low 12.0-15.0 [facility] Comment on above: Performed By: #### L 100.0100 ####[facility] [address] [place], [address] IG% 0.400 Normal 0.0-0.9 [facility] Comment on above: Result Comment: IG% - Immature Granulocytes (promyelocytes, myelocytes andmetamyelocytes) > 1% indicates that a LEFT SHIFT is Present. Performed By: #### L 100.0100 ####[facility] [address] [place], [address] Lymphocytes/100 WBC (Bld) 16.7 % Low 19-41 [facility] Comment on above: Performed By: #### L 100.0100 ####[facility] [address] [place], [address] MCH (RBC) [Entitic mass] 31.0 pg Normal 27.0-32.0 [facility] Comment on above: Performed By: #### L 100.0100 ####[facility] [address] [place], [address] MCHC (RBC) [Mass/Vol] 34.2 g/dL Normal 32-36 [facility] Comment on above: Performed By: #### L 100.0100 ####[facility] [address] [place], [address] MCV (RBC) [Entitic vol] 90.7 fL Normal 81-99 [facility] Comment on above: Performed By: #### L 100.0100 ####[facility] [address] [place], [address] Monocytes/100 WBC (Bld) 6.5 % Normal 0-10 [facility] Comment on above: Performed By: #### L 100.0100 ####[facility] [address] [place], [address] Neutrophils/100 WBC (Bld) 75.6 % High 47-70 [facility] Comment on above: Performed By: #### L 100.0100 ####[facility] [address] [place], [address] Nucleated RBC (Bld) [#/Vol] 0 10*3/uL Normal 0-5 [facility] Comment on above: Performed By: #### L 100.0100 ####[facility] [address] [place], [address] Platelet mean volume (Bld) [Entitic vol] 11.3 fL Normal 6.2-12.0 [facility] Comment on above: Performed By: #### L 100.0100 ####[facility] [address] [place], [address] Platelets (Bld) [#/Vol] 252 10*3/uL Normal 150-450 [facility] Comment on above: Performed By: #### L 100.0100 ####[facility] [address] [place], [address] RBC (Bld) [#/Vol] 3.32 10*6/uL Low 4.2-5.4 [facility] Comment on above: Performed By: #### L 100.0100 ####[facility] [address] [place], [address] RDW SD 39.3 fl Normal 35.1-43.9 [facility] Comment on above: Performed By: #### L 100.0100 ####[facility] [address] [place], [address] WBC (Bld) [#/Vol] 8.0 10*3/uL Normal 4.4-11.0 [facility] Comment on above: Performed By: #### L 100.0100 ####[facility] [address] [place], [address] Comprehensive Metabolic Prof [facility] 01-26-2025 Albumin [Mass/Vol] 3.4 g/dL Low 3.5-5.0 [facility] Comment on above: Performed By: #### L 501.9520, L500.4050, L501.54903, L506.0400, L501.2450, L509.6001 ####[facility] [address] [place], [address] Albumin/Globulin [Mass ratio] 1.1 {ratio} Normal 0.9-2.4 [facility] Comment on above: Performed By: #### L 501.9520, L500.4050, L501.01013, L506.0400, L501.2450, L509.6001 ####[facility] [address] [place], [address] ALK PHOS 84 U/L Normal 35-104 [facility] Comment on above: Performed By: #### L 501.9520, L500.4050, L501.85291, L506.0400, L501.2450, L509.6001 ####[facility] [address] [place], [address] ALT [Catalytic activity/Vol] 9 U/L Normal <=34 [facility] Comment on above: Performed By: #### L 501.9520, L500.4050, L501.53577, L506.0400, L501.2450, L509.6001 ####[facility] [address] [place], [address] AST [Catalytic activity/Vol] 15 U/L Normal <=31 [facility] Comment on above: Performed By: #### L 501.9520, L500.4050, L501.77507, L506.0400, L501.2450, L509.6001 ####[facility] [address] [place], [address] Bilirubin [Mass/Vol] 0.19 mg/dL Normal 0.00-1.[address] [facility] Comment on above: Performed By: #### L 501.9520, L500.4050, L501.55792, L506.0400, L501.2450, L509.6001 ####[facility] [address] [place], [address] BUN/CRE 14.0 RATIO Normal 10-20 [facility] Comment on above: Performed By: #### L 501.9520, L500.4050, L501.10631, L506.0400, L501.2450, L509.6001 ####[facility] [address] [place], [address] Calcium [Mass/Vol] 8.9 mg/dL Normal 7.6-11.0 [facility] Comment on above: Performed By: #### L 501.9520, L500.4050, L501.35663, L506.0400, L501.2450, L509.6001 ####[facility] [address] [place], [address] Chloride [Moles/Vol] 102 mmol/L Normal 98-[address] [facility] Comment on above: Performed By: #### L 501.9520, L500.4050, L501.92661, L506.0400, L501.2450, L509.6001 ####[facility] [address] [place], [address] CO2 [Moles/Vol] 22.7 mmol/L Normal 21.0-32.0 [facility] Comment on above: Performed By: #### L 501.9520, L500.4050, L501.21980, L506.0400, L501.2450, L509.6001 ####[facility] [address] [place], [address] Creatinine [Mass/Vol] 0.63 mg/dL Low 0.70-1.20 [facility] Comment on above: Performed By: #### L 501.9520, L500.4050, L501.72291, L506.0400, L501.2450, L509.6001 ####[facility] [address] [place], [address] ECRCL 106.62 ml/min Normal 50-250 [facility] Comment on above: Performed By: #### L 501.9520, L500.4050, L501.53918, L506.0400, L501.2450, L509.6001 ####[facility] [address] [place], [address] GAP 11 Normal 5-15 [facility] Comment on above: Performed By: #### L 501.9520, L500.4050, L501.79434, L506.0400, L501.2450, L509.6001 ####[facility] [address] [place], [address] GFR/1.73 sq M.predicted among non-blacks MDRD (S/P/Bld) [Vol rate/Area] 120 mL/min/{1.73_m2} Normal >60 [facility] Comment on above: Result Comment: mL/m in/1.73m2 CKD-EPI Creatinine Equation (2020) Performed By: #### L 501.9520, L500.4050, L501.10758, L506.0400, L501.2450, L509.6001 ####[facility] [address] [place], [address] Globulin (S) [Mass/Vol] 3.2 g/dL Normal 2.2-4.2 [facility] Comment on above: Performed By: #### L 501.9520, L500.4050, L501.88790, L506.0400, L501.2450, L509.6001 ####[facility] [address] [place], [address] Glucose [Mass/Vol] 95 mg/dL Normal 70-99 [facility] Comment on above: Performed By: #### L 501.9520, L500.4050, L501.82801, L506.0400, L501.2450, L509.6001 ####[facility] [address] [place], [address] Potassium [Moles/Vol] 3.5 mmol/L Normal 3.3-5.1 [facility] Comment on above: Performed By: #### L 501.9520, L500.4050, L501.94971, L506.0400, L501.2450, L509.6001 ####[facility] [address] [place], [address] Sodium [Moles/Vol] 136 mmol/L Normal 133-145 [facility] Comment on above: Performed By: #### L 501.9520, L500.4050, L501.22302, L506.0400, L501.2450, L509.6001 ####[facility] [address] [place], [address] T PROT 6.6 g/dL Normal 5.9-8.4 [facility] Comment on above: Performed By: #### L 501.9520, L500.4050, L501.26010, L506.0400, L501.2450, L509.6001 ####[facility] [address] [place], [address] Urea nitrogen [Mass/Vol] 9 mg/dL Normal 4-19 [facility] Comment on above: Performed By: #### L 501.9520, L500.4050, L501.73550, L506.0400, L501.2450, L509.6001 ####[facility] [address] [place], [address] Emergency Department Summary on 01-26-2025 Emergency Department Summary Normal [facility] Free T3on 01-26-2025 Free T3 [Mass/Vol] 2.5 pg/mL Normal 2.18-3.98 [facility] Comment on above: Performed By: #### L 501.9520, L500.4050, L501.49233, L506.0400, L501.2450, L509.6001 ####[facility] [address] 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 [place], [place], [address] L509.7001on 01-26-2025 Procalcitonin 0.06 ng/mL Normal <=0.10 [facility] Comment on above: Result Comment: Inte [...] Performed By: #### L 3100.7750, L3300.3500, L509.7001 ####[facility] [address] [place], [address] Laboratory - Chemistry and C hemistry - challengeon 01-26-2025 Glucose [Mass/Vol] 113 mg/dL High 70 - 100 mg/dL [facility] Lipaseon 01-26-2025 Lipase [Catalytic activity/Vol] 38 U/L Normal 13-75 [facility] Comment on above: Result Comment: Plealy coronado note:LIPASE revised reference range effective 22.New Lipase methodology. Expected to produce lower valuesthan the previous assay method.NEW Reference Range: 13 - 75 U/L Performed By: #### L 501.9520, L500.4050, L501.98176, L506.0400, L501.2450, L509.6001 ####[facility] [address] [place], [address] No Panel Informationon 01-26 Interpretation and review of laboratory results Abnormal [facility] Performed by: [facility], [address] [place] [address] CLIA ID: [id number] [facility] PTHINon 01-26-2025 PTH 45 pg/mL Normal 11-61 [facility] Comment on above: Performed By: #### L 509.1000 ####[facility] [address] [place], [address] T4 Free Directon 01-26-2025 T4 FREE DIRECT 0.90 ng/dL Normal 0.76-1.46 [facility] Comment on above: Performed By: #### L 501.9520, L500.4050, L501.69241, L506.0400, L501.2450, L509.6001 ####[facility] [address] [place], [address] Thyroid Stim Hormone (TSH)on 01-26-2025 TSH 1.440 uIU/mL Normal 0.300-4.200 [facility] Comment on above: Performed By: #### L 501.9520, L500.4050, L501.23330, L506.0400, L501.2450, L509.6001 ####[facility] [address] [place], [address] Urinalysis, Completeon 01-26 EPI,SQUAMOUS 0-5 SEEN Normal 5-10 [facility] Comment on above: Order Comment: CLEAN CATCH Performed By: #### L 400.0001 ####[facility] [address] [place], [address] Mucus Ql (Urine sed) 1+ /hpf Normal [facility] Comment on above: Order Comment: CLEAN CATCH Performed By: #### L 400.0001 ####[facility] [address] [place], [address] RBC 0-5 SEEN Normal 0-5 [facility] Comment on above: Order Comment: CLEAN CATCH Performed By: #### L 400.0001 ####[facility] [address] [place], [place], [address] WBC 0-5 SEEN Normal 0-5 [facility] Comment on above: Order Comment: CLEAN CATCH Performed By: #### L 400.0001 ####[facility] [address] [place], [address] BACTERIA 0 SEEN Normal None Seen [facility] Comment on above: Order Comment: CLEAN CATCH Performed By: #### L 400.0001 ####[facility] [address] [place], [address] L3300.8200on 01-19-2025 VITAMIN B6 2.7 ug/L Low 3.4-65.2 [facility] Comment on above: Order Comment: Test( s) 204299-[id number] B6was developed and its performance characteristicsdetermined by [employer]. It has not been cleared or approvedby the Food and Drug Administration. Result Comment: Defi ciency: <3.4 Marginal: 3.4 - 5.1 Adequate: >5.1Performed at: [facility] [address] [id number] Director: Nae Mendiola MD, Phone: [phone] Performed By: #### L 503.0106, L3890.6006, L506.0400, L3300.8200, L501.9520, L100.0100, L509.8002, L500.4050 ####[facility] [address] [place], [address] CBC W/Diff, Automatedon 06-3 0 Absolute Lymph 1.59 X10 3/uL Normal 0.83-4.51 [facility] Comment on above: Performed By: #### L 503.0106, L3890.6006, L506.0400, L3300.8200, L501.9520, L100.0100, L509.8002, L500.4050 ####[facility] [address] [place], [address] Absolute Neut 5.4 X10 3/uL Normal 2.0-7.7 [facility] Comment on above: Performed By: #### L 503.0106, L3890.6006, L506.0400, L3300.8200, L501.9520, L100.0100, L509.8002, L500.4050 ####[facility] [address] [place], [address] Basophils/100 WBC (Bld) 0.5 % Normal 0-1 [facility] Comment on above: Performed By: #### L 503.0106, L3890.6006, L506.0400, L3300.8200, L501.9520, L100.0100, L509.8002, L500.4050 ####[facility] [address] [place], [address] Eosinophils/100 WBC (Bld) 0.7 % Normal 0-5 [facility] Comment on above: Performed By: #### L 503.0106, L3890.6006, L506.0400, L3300.8200, L501.9520, L100.0100, L509.8002, L500.4050 ####[facility] [address] [place], [address] Erythrocyte distribution width (RBC) [Ratio] 12.2 % Normal 11.6-14.6 [facility] Comment on above: Performed By: #### L 503.0106, L3890.6006, L506.0400, L3300.8200, L501.9520, L100.0100, L509.8002, L500.4050 ####[facility] [address] [place], [address] Hematocrit (Bld) [Volume fraction] 31.5 % Low 37-47 [facility] Comment on above: Performed By: #### L 503.0106, L3890.6006, L506.0400, L3300.8200, L501.9520, L100.0100, L509.8002, L500.4050 ####[facility] [address] [place], [address] Hemoglobin (Bld) [Mass/Vol] 10.6 g/dL Low 12.0-15.0 [facility] Comment on above: Performed By: #### L 503.0106, L3890.6006, L506.0400, L3300.8200, L501.9520, L100.0100, L509.8002, L500.4050 ####[facility] [address] [place], [address] IG% 0.400 Normal 0.0-0.9 [facility] Comment on above: Result Comment: IG% - Immature Granulocytes (promyelocytes, myelocytes andmetamyelocytes) > 1% indicates that a LEFT SHIFT is Present. Performed By: #### L 503.0106, L3890.6006, L506.0400, L3300.8200, L501.9520, L100.0100, L509.8002, L500.4050 ####[facility] [address] [place], [address] Lymphocytes/100 WBC (Bld) 21.3 % Normal 19-41 [facility] Comment on above: Performed By: #### L 503.0106, L3890.6006, L506.0400, L3300.8200, L501.9520, L100.0100, L509.8002, L500.4050 ####[facility] [address] [place], [address] MCH (RBC) [Entitic mass] 31.2 pg Normal 27.0-32.0 [facility] Comment on above: Performed By: #### L 503.0106, L3890.6006, L506.0400, L3300.8200, L501.9520, L100.0100, L509.8002, L500.4050 ####[facility] [address] [place], [address] MCHC (RBC) [Mass/Vol] 33.7 g/dL Normal 32-36 [facility] Comment on above: Performed By: #### L 503.0106, L3890.6006, L506.0400, L3300.8200, L501.9520, L100.0100, L509.8002, L500.4050 ####[facility] [address] [place], [address] MCV (RBC) [Entitic vol] 92.6 fL Normal 81-99 [facility] Comment on above: Performed By: #### L 503.0106, L3890.6006, L506.0400, L3300.8200, L501.9520, L100.0100, L509.8002, L500.4050 ####[facility] [address] [place], [address] Monocytes/100 WBC (Bld) 4.8 % Normal 0-10 [facility] Comment on above: Performed By: #### L 503.0106, L3890.6006, L506.0400, L3300.8200, L501.9520, L100.0100, L509.8002, L500.4050 ####[facility] [address] [place], [address] Neutrophils/100 WBC (Bld) 72.3 % High 47-70 [facility] Comment on above: Performed By: #### L 503.0106, L3890.6006, L506.0400, L3300.8200, L501.9520, L100.0100, L509.8002, L500.4050 ####[facility] [address] [place], [address] Nucleated RBC (Bld) [#/Vol] 0 10*3/uL Normal 0-5 [facility] Comment on above: Performed By: #### L 503.0106, L3890.6006, L506.0400, L3300.8200, L501.9520, L100.0100, L509.8002, L500.4050 ####[facility] [address] [place], [address] Platelet mean volume (Bld) [Entitic vol] 11.6 fL Normal 6.2-12.0 [facility] Comment on above: Performed By: #### L 503.0106, L3890.6006, L506.0400, L3300.8200, L501.9520, L100.0100, L509.8002, L500.4050 ####[facility] [address] [place], [address] Platelets (Bld) [#/Vol] 280 10*3/uL Normal 150-450 [facility] Comment on above: Performed By: #### L 503.0106, L3890.6006, L506.0400, L3300.8200, L501.9520, L100.0100, L509.8002, L500.4050 ####[facility] [address] [place], [address] RBC (Bld) [#/Vol] 3.40 10*6/uL Low 4.2-5.4 [facility] Comment on above: Performed By: #### L 503.0106, L3890.6006, L506.0400, L3300.8200, L501.9520, L100.0100, L509.8002, L500.4050 ####[facility] [address] [place], [address] RDW SD 41.3 fl Normal 35.1-43.9 [facility] Comment on above: Performed By: #### L 503.0106, L3890.6006, L506.0400, L3300.8200, L501.9520, L100.0100, L509.8002, L500.4050 ####[facility] [address] [place], [place], [id number] WBC (Bld) [#/Vol] 7.5 10*3/uL Normal 4.4-11.0 [facility] Comment on above: Performed By: #### L 503.0106, L3890.6006, L506.0400, L3300.8200, L501.9520, L100.0100, L509.8002, L500.4050 ####[facility] [address] [place], [address] Comprehensive Metabolic Prof [facility] 01-17-2025 Albumin [Mass/Vol] 3.5 g/dL Normal 3.5-5.0 [facility] Comment on above: Performed By: #### L 503.0106, L3890.6006, L506.0400, L3300.8200, L501.9520, L100.0100, L509.8002, L500.4050 ####[facility] [address] [place], [address] Albumin/Globulin [Mass ratio] 1.1 {ratio} Normal 0.9-2.4 [facility] Comment on above: Performed By: #### L 503.0106, L3890.6006, L506.0400, L3300.8200, L501.9520, L100.0100, L509.8002, L500.4050 ####[facility] [address] [place], [address] ALK PHOS 81 U/L Normal 35-104 [facility] Comment on above: Performed By: #### L 503.0106, L3890.6006, L506.0400, L3300.8200, L501.9520, L100.0100, L509.8002, L500.4050 ####[facility] [address] [place], [address] ALT [Catalytic activity/Vol] 10 U/L Normal <=34 [facility] Comment on above: Performed By: #### L 503.0106, L3890.6006, L506.0400, L3300.8200, L501.9520, L100.0100, L509.8002, L500.4050 ####[facility] [address] [place], [address] AST [Catalytic activity/Vol] 16 U/L Normal <=31 [facility] Comment on above: Performed By: #### L 503.0106, L3890.6006, L506.0400, L3300.8200, L501.9520, L100.0100, L509.8002, L500.4050 ####[facility] [address] [place], [address] Bilirubin [Mass/Vol] 0.22 mg/dL Normal 0.00-1.[address] [facility] Comment on above: Performed By: #### L 503.0106, L3890.6006, L506.0400, L3300.8200, L501.9520, L100.0100, L509.8002, L500.4050 ####[facility] [address] [place], [address] BUN/CRE 13.1 RATIO Normal 10-20 [facility] Comment on above: Performed By: #### L 503.0106, L3890.6006, L506.0400, L3300.8200, L501.9520, L100.0100, L509.8002, L500.4050 ####[facility] [address] [place], [address] Calcium [Mass/Vol] 9.1 mg/dL Normal 7.6-11.0 [facility] Comment on above: Performed By: #### L 503.0106, L3890.6006, L506.0400, L3300.8200, L501.9520, L100.0100, L509.8002, L500.4050 ####[facility] [address] [place], [address] Chloride [Moles/Vol] 101 mmol/L Normal 98-[address] [facility] Comment on above: Performed By: #### L 503.0106, L3890.6006, L506.0400, L3300.8200, L501.9520, L100.0100, L509.8002, L500.4050 ####[facility] [address] [place], [place], [phone](572) CO2 [Moles/Vol] 20.9 mmol/L Low 21.0-32.0 [facility] Comment on above: Performed By: #### L 503.0106, L3890.6006, L506.0400, L3300.8200, L501.9520, L100.0100, L509.8002, L500.4050 ####[facility] [address] [place], [place], [phone]) Creatinine [Mass/Vol] 0.66 mg/dL Low 0.70-1.20 [facility] Comment on above: Performed By: #### L 503.0106, L3890.6006, L506.0400, L3300.8200, L501.9520, L100.0100, L509.8002, L500.4050 ####[facility] [address] [place], [place], [phone](759) GAP 13 Normal 5-15 [facility] Comment on above: Performed By: #### L 503.0106, L3890.6006, L506.0400, L3300.8200, L501.9520, L100.0100, L509.8002, L500.4050 ####[facility] [address] [place], [address] GFR/1.73 sq M.predicted among non-blacks MDRD (S/P/Bld) [Vol rate/Area] 119 mL/min/{1.73_m2} Normal >60 [facility] Comment on above: Result Comment: mL/m in/1.73m2 CKD-EPI Creatinine Equation (2020) Performed By: #### L 503.0106, L3890.6006, L506.0400, L3300.8200, L501.9520, L100.0100, L509.8002, L500.4050 ####[facility] [address] [place], [address] Globulin (S) [Mass/Vol] 3.2 g/dL Normal 2.2-4.2 [facility] Comment on above: Performed By: #### L 503.0106, L3890.6006, L506.0400, L3300.8200, L501.9520, L100.0100, L509.8002, L500.4050 ####[facility] [address] [place], [address] Glucose [Mass/Vol] 121 mg/dL High 70-99 [facility] Comment on above: Performed By: #### L 503.0106, L3890.6006, L506.0400, L3300.8200, L501.9520, L100.0100, L509.8002, L500.4050 ####[facility] [address] [place], [address] Potassium [Moles/Vol] 3.6 mmol/L Normal 3.3-5.1 [facility] Comment on above: Performed By: #### L 503.0106, L3890.6006, L506.0400, L3300.8200, L501.9520, L100.0100, L509.8002, L500.4050 ####[facility] [address] [place], [place], [phone] Sodium [Moles/Vol] 135 mmol/L Normal 133-145 [facility] Comment on above: Performed By: #### L 503.0106, L3890.6006, L506.0400, L3300.8200, L501.9520, L100.0100, L509.8002, L500.4050 ####[facility] [address] [place], [place], [phone] T PROT 6.8 g/dL Normal 5.9-8.4 [facility] Comment on above: Performed By: #### L 503.0106, L3890.6006, L506.0400, L3300.8200, L501.9520, L100.0100, L509.8002, L500.4050 ####[facility] [address] [place], [place], [phone] Urea nitrogen [Mass/Vol] 9 mg/dL Normal 4-19 [facility] Comment on above: Performed By: #### L 503.0106, L3890.6006, L506.0400, L3300.8200, L501.9520, L100.0100, L509.8002, L500.4050 ####[facility] [address] [place], [place], [phone] HIVon 01-17-2025 HIV Non-Reactive Normal Nonreactive [facility] Comment on above: Result Comment: Non- ReactiveReactiveRepeatedly reactive samples must be confirmed according toCDC recommended confirmatory algorithms. The subresults foreither HIVAG or AHIV can be used as an aid in the selectionof the confirmation algorithm for reactive samples.Send out specimens with Reactive results to [facility] forconfirmation.Order the HIV antibody detection and differentiation:lc#[id number] Performed By: #### L 503.0106, L3890.6006, L506.0400, L3300.8200, L501.9520, L100.0100, L509.8002, L500.4050 ####[facility] [address] [place], [place], [phone] Emt/Paramedic Office Visit Reporton 01-17-2025 Emt/Paramedic Office Visit Report Normal [facility] Syphilis Antibodieson 2024 Syphilis Abs Non-Reactive Normal Nonreactive [facility] Comment on above: Performed By: #### L 503.0106, L3890.6006, L506.0400, L3300.8200, L501.9520, L100.0100, L509.8002, L500.4050 ####[facility] [address] [place], [place], [phone] T4 Free Directon 01-17-2025 T4 FREE DIRECT 1.00 ng/dL Normal 0.76-1.46 [facility] Comment on above: Performed By: #### L 503.0106, L3890.6006, L506.0400, L3300.8200, L501.9520, L100.0100, L509.8002, L500.4050 ####[facility] [address] [place], [place], [phone] Thyroid Stim Hormone (TSH)on 01-17-2025 TSH 1.760 uIU/mL Normal 0.300-4.200 [facility] Comment on above: Performed By: #### L 503.0106, L3890.6006, L506.0400, L3300.8200, L501.9520, L100.0100, L509.8002, L500.4050 ####[facility] [address] [place], [place], [address] Vitamin B12on 01-17-2025 Cobalamin (Vitamin B12) [Mass/Vol] 230 pg/mL Normal 180-914 [facility] Comment on above: Performed By: #### L 503.0106, L3890.6006, L506.0400, L3300.8200, L501.9520, L100.0100, L509.8002, L500.4050 ####[facility] [address] [place], [address] Emt/Paramedic Office Visit Reporton 01-06-2025 Emt/Paramedic Office Visit Report Normal [facility] Emt/Paramedic Office Visit Reporton 12-08-2024 Emt/Paramedic Office Visit Report Normal [facility] MR/BMS.BPon 12-07-2024 MR/BMS.BP Normal [facility] L3410.9992on 11-12-2024 [facility] Misc. COMMENT Normal . [facility] Comment on above: Order Comment: [id number] 1AFP SERUM RT Result Comment: Test Ordered: [id number] AFP, Serum, Open Spina BifidaResults Report TG [...] Open Spina Bifida RiskFor further inquiries contact [employer] at [phone].This test was developed and its performance characteristicsdetermined by [employer]. It has not been cleared or approvedby the Food and Drug Administration.Performed at: - [facility] [address] [place], [place] [id number] Director: Fabiola Carson [facility], Phone: [phone] at: - [address] [id number] Director: Joseph Doe PhD, Phone: [phone] Performed By: #### L 3410.9992 ####[facility] [address] [place], [place], [phone] Emt/Paramedic Office Visit Reporton 11-09-2024 Emt/Paramedic Office Visit Report Normal [facility] Emt/Paramedic Office Visit Reporton 10-20-2024 Emt/Paramedic Office Visit Report Normal [facility] MR/BMS.BPon 10-19-2024 MR/BMS.BP Normal [facility] CBC W/Diff, Automatedon 09-18 Absolute Lymph 1.98 X10 3/uL Normal 0.83-4.51 [facility] Comment on above: Performed By: #### B , L3890.6301, L3890.6102, L900.0098, L100.0100, L509.8002, L509.4006, L3890.6006 ####[facility] [address] [place], [place], [phone] Absolute Neut 5.1 X10 3/uL Normal 2.0-7.7 [facility] Comment on above: Performed By: #### B TS, L3890.6301, L3890.6102, L900.0098, L100.0100, L509.8002, L509.4006, L3890.6006 ####[facility] [address] [place], [address] Basophils/100 WBC (Bld) 0.4 % Normal 0-1 [facility] Comment on above: Performed By: #### B TS, L3890.6301, L3890.6102, L900.0098, L100.0100, L509.8002, L509.4006, L3890.6006 ####[facility] [address] [place], [address] Eosinophils/100 WBC (Bld) 0.9 % Normal 0-5 [facility] Comment on above: Performed By: #### B TS, L3890.6301, L3890.6102, L900.0098, L100.0100, L509.8002, L509.4006, L3890.6006 ####[facility] [address] [place], [address] Erythrocyte distribution width (RBC) [Ratio] 13.4 % Normal 11.6-14.6 [facility] Comment on above: Performed By: #### B TS, L3890.6301, L3890.6102, L900.0098, L100.0100, L509.8002, L509.4006, L3890.6006 ####[facility] [address] [place], [address] Hematocrit (Bld) [Volume fraction] 34.9 % Low 37-47 [facility] Comment on above: Performed By: #### B TS, L3890.6301, L3890.6102, L900.0098, L100.0100, L509.8002, L509.4006, L3890.6006 ####[facility] [address] [place], [address] Hemoglobin (Bld) [Mass/Vol] 11.8 g/dL Low 12.0-15.0 [facility] Comment on above: Performed By: #### B TS, L3890.6301, L3890.6102, L900.0098, L100.0100, L509.8002, L509.4006, L3890.6006 ####[facility] [address] [place], [address] IG% 0.500 Normal 0.0-0.9 [facility] Comment on above: Result Comment: IG% - Immature Granulocytes (promyelocytes, myelocytes andmetamyelocytes) > 1% indicates that a LEFT SHIFT is Present. Performed By: #### B TS, L3890.6301, L3890.6102, L900.0098, L100.0100, L509.8002, L509.4006, L3890.6006 ####[facility] [address] [facility], [address] Lymphocytes/100 WBC (Bld) 25.8 % Normal 19-41 [facility] Comment on above: Performed By: #### B TS, L3890.6301, L3890.6102, L900.0098, L100.0100, L509.8002, L509.4006, L3890.6006 ####[facility] [address] [facility], [address] MCH (RBC) [Entitic mass] 30.4 pg Normal 27.0-32.0 [facility] Comment on above: Performed By: #### B TS, L3890.6301, L3890.6102, L900.0098, L100.0100, L509.8002, L509.4006, L3890.6006 ####[facility] [address] [place], [address] MCHC (RBC) [Mass/Vol] 33.8 g/dL Normal 32-36 [facility] Comment on above: Performed By: #### B TS, L3890.6301, L3890.6102, L900.0098, L100.0100, L509.8002, L509.4006, L3890.6006 ####[facility] [address] [place], [address] MCV (RBC) [Entitic vol] 89.9 fL Normal 81-99 [facility] Comment on above: Performed By: #### B TS, L3890.6301, L3890.6102, L900.0098, L100.0100, L509.8002, L509.4006, L3890.6006 ####[facility] [address] [place], [address] Monocytes/100 WBC (Bld) 5.7 % Normal 0-10 [facility] Comment on above: Performed By: #### B TS, L3890.6301, L3890.6102, L900.0098, L100.0100, L509.8002, L509.4006, L3890.6006 ####[facility] [address] [place], [address] Neutrophils/100 WBC (Bld) 66.7 % Normal 47-70 [facility] Comment on above: Performed By: #### B TS, L3890.6301, L3890.6102, L900.0098, L100.0100, L509.8002, L509.4006, L3890.6006 ####[facility] [address] [place], [address] Nucleated RBC (Bld) [#/Vol] 0 10*3/uL Normal 0-5 [facility] Comment on above: Performed By: #### B TS, L3890.6301, L3890.6102, L900.0098, L100.0100, L509.8002, L509.4006, L3890.6006 ####[facility] [address] [place], [address] Platelet mean volume (Bld) [Entitic vol] 11.8 fL Normal 6.2-12.0 [facility] Comment on above: Performed By: #### B TS, L3890.6301, L3890.6102, L900.0098, L100.0100, L509.8002, L509.4006, L3890.6006 ####[facility] [address] [place], [address] Platelets (Bld) [#/Vol] 301 10*3/uL Normal 150-450 [facility] Comment on above: Performed By: #### B TS, L3890.6301, L3890.6102, L900.0098, L100.0100, L509.8002, L509.4006, L3890.6006 ####[facility] [address] [place], [address] RBC (Bld) [#/Vol] 3.88 10*6/uL Low 4.2-5.4 [facility] Comment on above: Performed By: #### B TS, L3890.6301, L3890.6102, L900.0098, L100.0100, L509.8002, L509.4006, L3890.6006 ####[facility] [address] [place], [address] RDW SD 43.8 fl Normal 35.1-43.9 [facility] Comment on above: Performed By: #### B TS, L3890.6301, L3890.6102, L900.0098, L100.0100, L509.8002, L509.4006, L3890.6006 ####[facility] [address] [place], [address] WBC (Bld) [#/Vol] 7.7 10*3/uL Normal 4.4-11.0 [facility] Comment on above: Performed By: #### B TS, L3890.6301, L3890.6102, L900.0098, L100.0100, L509.8002, L509.4006, L3890.6006 ####[facility] [address] [facility] [place], [place], [address] L3890.6006on 10-06-2024 HIV Non-Reactive Normal Nonreactive [facility] Comment on above: Result Comment: Non- ReactiveReactiveRepeatedly reactive samples must be confirmed according [facility] recommended confirmatory algorithms. The subresults foreither HIVAG or AHIV can be used as an aid in the selectionof the confirmation algorithm for reactive samples.Send out specimens with Reactive results to [facility] forconfirmation.Order the HIV antibody detection and differentiation:lc#[id number] Performed By: #### B TS, L3890.6301, L3890.6102, L900.0098, L100.0100, L509.8002, L509.4006, L3890.6006 ####[facility] [address] [facility] [place], [place], [address] L3890.6102on 10-06-2024 HEP B Surf Ag Non-Reactive Normal Nonreactive [facility] Comment on above: Result Comment: Reac tive: Presumptive evidence of HBV. Repeatedly reactivesamples must be confirmed using a neutralization test([employer] HBsAg Confirmatory Test)Non-Reactive: HBsAg not detected; does not exclude thepossibility of exposure to HBV Performed By: #### B TS, L3890.6301, L3890.6102, L900.0098, L100.0100, L509.8002, L509.4006, L3890.6006 ####[facility] [address] [facility] [place], [place], [address] L3890.6301on 10-06-2024 Hepatitis C Ab Non-Reactive Normal Nonreactive [facility] Comment on above: Result Comment: Reac tive: Presumptive evidence of antibodies to HCV. Follow[facility] OF [facility] recommendations for supplemental testing.Non-Reactive: Antibodies to HCV were not detected; does notexclude the possibility of exposure to HCVReactive Results are presumptive evidence of antibodies toHCV. Follow CDC recommendations for supplemental testing.Order confirmation testing: HCV Quant by PCR testing -HCVPCR lc#[id number] Non Reactive: < 0.8 Equivocal: >/= 0.8 to < 1.0 Reactive: >/= 1.0The [facility] requires that a reactive/equivocal HCV antibodyresult be sent out for confirmation. HCV Quant by PCRtesting. Performed By: #### B TS, L3890.6301, L3890.6102, L900.0098, L100.0100, L509.8002, L509.4006, L3890.6006 ####[facility] [address] [place], [place], [address] L509.4006on 10-06-2024 Rubella IgG REAC Normal Nonreactive [facility] Comment on above: Result Comment: Anti body Result: InterpretationNon-Reactive: Non-ImmuneReactive: ImmuneThe following results were obtained with the ElecsysRubella IgG assay. Results from assays of othermanufacturers cannot be used interchangeably. Performed By: #### B TS, L3890.6301, L3890.6102, L900.0098, L100.0100, L509.8002, L509.4006, L3890.6006 ####[facility] [address] [place], [place], [address] L509.8002on 10-06-2024 Syphilis Abs Non-Reactive Normal Nonreactive [facility] Comment on above: Performed By: #### B TS, L3890.6301, L3890.6102, L900.0098, L100.0100, L509.8002, L509.4006, L3890.6006 ####[facility] [address] [place], [place], [id number] NATERAon 10-06-2024 NATURA SEE SCANNED REPORT Normal [facility] Comment on above: Performed By: #### B TS, L3890.6301, L3890.6102, L900.0098, L100.0100, L509.8002, L509.4006, L3890.6006 ####[facility] [address] [place], [address] Emt/Paramedic Office Visit Reporton 10-06-2024 Emt/Paramedic Office Visit Report Normal [facility] Type AND Screenon 10-06-2024 Ab SCREEN GEL Negative Normal [facility] Comment on above: Order Comment: PN Performed By: #### B TS, L3890.6301, L3890.6102, L900.0098, L100.0100, L509.8002, L509.4006, L3890.6006 ####[facility] [address] [place], [place], [id number] MISCELLANEOUS SENDOUTon 09-18 Miscellaneous Results Patient results scanned into [employer] Invalid Interpretation Code [facility] Comment on above: Order Comment: Name of Test:->NAIT What is the sendout facility name, if known?->[facility] Release to patient->Automatic (5 days after final result) Progress Noteon 09-27-2024 Balance Bridge Inspector Authentication Interface Message Text Maternal Medicine [...] term pregnancies. The second was delivered at [facility] by section after continuing Category II tracing. The baby was critical and transferred to [facility] unit. It passed the same day with severe anemia that could not be corrected and a pulmonary hemorrhage. There was a documented spontaneous fetomaternal hemorrhage with a question (not proven by placental examination but likely) of abruption. (See complete preconceptual consultation by Dr. Maher from 05/08/22). Yessi was admitted to [facility] from her OB office. She had noted decreased FM with a concerning NST (spontaneous deceleration) in OB office. She was transferred to hospital and delivered by urgent C/S. The was transferred quickly after delivery to [facility] for severe anemia (subsequently noted severe fetomaternal [...] Gen ND Comments: Stat LTCS, transported to [facility] NICU with anemia and passed of pulmonary [...] No Ne (more content not included)... Normal [facility] Emergency Department Summary on 09-26-2024 Emergency Department Summary Normal [facility] M100.678on 09-26-2024 M100.678 Pending SARS-CoV-2 (COVID 19) Negative INFLUENZA A Negative INFLUENZA B Negative RSV PCR Negative [facility] Comment on above: Performed By: #### M 100.678 ####[facility] [address] [place], [address] MR/PATRICIA.BPon 09-15-2024 MR/PATRICIA.BP [facility] Emt/Paramedic Office Visit Reporton 09-15-2024 Emt/Paramedic Office Visit Report Normal [facility] Emt/Paramedic Office Visit Reporton 09-08-2024 Emt/Paramedic Office Visit Report Normal [facility] Emt/Paramedic Office Visit Reporton 08-30-2024 Emt/Paramedic Office Visit Report Normal [facility] Chlamydia/GC MAE aptimaon CHLAMY,NUC ACID Negative Normal Negative [facility] Comment on above: Performed By: #### L 7000.1800, M100.2200 ####[facility] [address] [place], [address] GC BY NUC ACID Negative Normal Negative [facility] Comment on above: Result Comment: Perf ormed at: =G - [facility] [address] [id number] Director: Екатерина Masterson MD, Phone: [phone] Performed By: #### L 7000.1800, M100.2200 ####[facility] [address] [place], [address] Urine Cultureon 08-25-2024 URC Mixed Gram Pos Gram Neg Org [place] Count 11,000-25,000 MIXC Mixed contaminants. Submit a new specimen if indicated. Normal [facility] Comment on above: Performed By: #### L 7000.1800, M100.2200 ####[facility] [address] [place], [address] Emt/Paramedic Office Visit Reporton 08-23-2024 Emt/Paramedic Office Visit Report Normal [facility] CBC W/Diff, Automatedon 07-22 Absolute Lymph 2.06 X10 3/uL Normal 0.83-4.51 [facility] Comment on above: Performed By: #### L 100.0100, L500.4050 ####[facility] [address] [place], [address] Absolute Neut 4.2 X10 3/uL Normal 2.0-7.7 [facility] Comment on above: Performed By: #### L 100.0100, L500.4050 ####[facility] [address] [place], [address] Basophils/100 WBC (Bld) 0.6 % Normal 0-1 [facility] [facility] Comment on above: Performed By: #### L 100.0100, L500.4050 ####[facility] [address] [place], [address] Eosinophils/100 WBC (Bld) 3.2 % Normal 0-5 [facility] Comment on above: Performed By: #### L 100.0100, L500.4050 ####[facility] [address] [place], [address] Erythrocyte distribution width (RBC) [Ratio] 13.2 % Normal 11.6-14.6 [facility] Comment on above: Performed By: #### L 100.0100, L500.4050 ####[facility] [address] [place], [address] Hematocrit (Bld) [Volume fraction] 36.3 % Low 37-47 [facility] Comment on above: Performed By: #### L 100.0100, L500.4050 ####[facility] [address] [place], [address] Hemoglobin (Bld) [Mass/Vol] 12.4 g/dL Normal 12.0-15.0 [facility] Comment on above: Performed By: #### L 100.0100, L500.4050 ####[facility] [address] [place], [address] IG% 0.300 Normal 0.0-0.9 [facility] Comment on above: Result Comment: IG% - Immature Granulocytes (promyelocytes, myelocytes andmetamyelocytes) > 1% indicates that a LEFT SHIFT is Present. Performed By: #### L 100.0100, L500.4050 ####[facility] [address] [place], [address] Lymphocytes/100 WBC (Bld) 29.0 % Normal 19-41 [facility] Comment on above: Performed By: #### L 100.0100, L500.4050 ####[facility] [address] [place], [address] MCH (RBC) [Entitic mass] 30.5 pg Normal 27.0-32.0 [facility] Comment on above: Performed By: #### L 100.0100, L500.4050 ####[facility] [address] [place], [address] MCHC (RBC) [Mass/Vol] 34.2 g/dL Normal 32-36 [facility] Comment on above: Performed By: #### L 100.0100, L500.4050 ####[facility] [address] [place], [address] MCV (RBC) [Entitic vol] 89.2 fL Normal 81-99 [facility] Comment on above: Performed By: #### L 100.0100, L500.4050 ####[facility] [address] [place], [address] Monocytes/100 WBC (Bld) 7.3 % Normal 0-10 [facility] Comment on above: Performed By: #### L 100.0100, L500.4050 ####[facility] [address] [place], [address] Neutrophils/100 WBC (Bld) 59.6 % Normal 47-70 [facility] Comment on above: Performed By: #### L 100.0100, L500.4050 ####[facility] [address] [place], [address] Nucleated RBC (Bld) [#/Vol] 0 10*3/uL Normal 0-5 [facility] Comment on above: Performed By: #### L 100.0100, L500.4050 ####[facility] [address] [place], [address] Platelet mean volume (Bld) [Entitic vol] 11.4 fL Normal 6.2-12.0 [facility] Comment on above: Performed By: #### L 100.0100, L500.4050 ####[facility] [address] [place], [address] Platelets (Bld) [#/Vol] 268 10*3/uL Normal 150-450 [facility] Comment on above: Performed By: #### L 100.0100, L500.4050 ####[facility] [address] [place], [address] RBC (Bld) [#/Vol] 4.07 10*6/uL Low 4.2-5.4 [facility] Comment on above: Performed By: #### L 100.0100, L500.4050 ####[facility] [address] [place], [address] RDW SD 42.6 fl Normal 35.1-43.9 [facility] Comment on above: Performed By: #### L 100.0100, L500.4050 ####[facility] [address] [place], [address] WBC (Bld) [#/Vol] 7.1 10*3/uL Normal 4.4-11.0 [facility] Comment on above: Performed By: #### L 100.0100, L500.4050 ####[facility] [address] [place], [address] Comprehensive Metabolic Prof ilon 08-17-2024 Albumin [Mass/Vol] 3.8 g/dL Normal 3.2-5.0 [facility] Comment on above: Performed By: #### L 100.0100, L500.4050 ####[facility] [address] [place], [address] Albumin/Globulin [Mass ratio] 0.9 {ratio} Normal 0.9-2.4 [facility] Comment on above: Performed By: #### L 100.0100, L500.4050 ####[facility] [address] [place], [address] ALK P 80 U/L Normal 45-117 [facility] Comment on above: Performed By: #### L 100.0100, L500.4050 ####[facility] [address] [place], [address] ALT [Catalytic activity/Vol] 17 U/L Normal 13-56 [facility] Comment on above: Performed By: #### L 100.0100, L500.4050 ####[facility] [address] [place], [address] AST [Catalytic activity/Vol] 7 U/L Low 15-37 [facility] Comment on above: Performed By: #### L 100.0100, L500.4050 ####[facility] [address] [place], [address] Bilirubin [Mass/Vol] 0.50 mg/dL Normal 0.20-1.[address] [facility] Comment on above: Result Comment: For patients on eltrombopag therapy, use of Dimension [place] TBIL is not recommended. Performed By: #### L 100.0100, L500.4050 ####[facility] [address] [place], [address] BUN/CRE 10.2 RATIO Normal 10-20 [facility] Comment on above: Performed By: #### L 100.0100, L500.4050 ####[facility] [address] [place], [address] CA,Total 9.2 mg/dL Normal 8.5-10.1 [facility] Comment on above: Performed By: #### L 100.0100, L500.4050 ####[facility] [address] [place], [address] Chloride [Moles/Vol] 105 mmol/L Normal 98-[address] [facility] Comment on above: Performed By: #### L 100.0100, L500.4050 ####[facility] [address] [place], [address] CO2 [Moles/Vol] 26.0 mmol/L Normal 21.0-32.0 [facility] Comment on above: Performed By: #### L 100.0100, L500.4050 ####[facility] [address] [place], [address] Creatinine [Mass/Vol] 0.88 mg/dL Normal 0.55-1.02 [facility] Comment on above: Result Comment: The validity of the calculated GFR GFRAA in patients over70 years has not been determined. Clinical correlation isessential. Performed By: #### L 100.0100, L500.4050 ####[facility] [address] [place], [address] EST GFR - AA 94 mL/min Normal >60 [facility] Comment on above: Result Comment: Afri can [place] Islander GFR Calc Performed By: #### L 100.0100, L500.4050 ####[facility] [address] [place], [address] GAP 6 Normal 5-15 [facility] Comment on above: Performed By: #### L 100.0100, L500.4050 ####[facility] [address] [place], [address] GFR/1.73 sq M.predicted among non-blacks MDRD (S/P/Bld) [Vol rate/Area] 78 mL/min/{1.73_m2} Normal >60 [facility] Comment on above: Result Comment: Non- GFR Calc Performed By: #### L 100.0100, L500.4050 ####[facility] [address] [place], [address] Globulin (S) [Mass/Vol] 4.1 g/dL Normal 2.2-4.2 [facility] Comment on above: Performed By: #### L 100.0100, L500.4050 ####[facility] [address] [place], [address] Glucose [Mass/Vol] 94 mg/dL Normal 74-106 [facility] Comment on above: Performed By: #### L 100.0100, L500.4050 ####[facility] [address] [place], [address] Potassium [Moles/Vol] 3.6 mmol/L Normal 3.5-5.1 [facility] Comment on above: Performed By: #### L 100.0100, L500.4050 ####[facility] [address] [place], [address] Sodium [Moles/Vol] 137 mmol/L Normal 136-145 [facility] Comment on above: Performed By: #### L 100.0100, L500.4050 ####[facility] [address] [place], [address] T PROT 7.9 g/dL Normal 6.4-8.2 [facility] Comment on above: Performed By: #### L 100.0100, L500.4050 ####[facility] [address] [place], [address] Urea nitrogen [Mass/Vol] 9 mg/dL Normal 7-18 [facility] Comment on above: Performed By: #### L 100.0100, L500.4050 ####[facility] [address] [place], [address] Transvaginal w/Preg USon Transvaginal w/Preg US Normal [facility] hCG Titer Quant., Serumon HCG QUANT. 143 mIU/mL [address] Comment on above: Result Comment: hCG levels with Gestational AgeGestational Age hCG mIU/mL (IU/L)0.2 - 1 week 5 - 501-2 weeks 50 - 5002-3 weeks 100 - 47169-2 weeks 500 - 912691-5 weeks 1000 - 966585-4 weeks 35507 - 100,0006-8 weeks 56928 - 200,0002-3 months 50038 - 100,000 Performed By: #### L 700.8000 ####[facility] [address] [place], [place], [address] hCG Titer Quant., Serumon HCG QUANT. 91 mIU/mL [address] Comment on above: Result Comment: hCG levels with Gestational AgeGestational Age hCG mIU/mL (IU/L)0.2 - 1 week 5 - 501-2 weeks 50 - 5002-3 weeks 100 - 48507-3 weeks 500 - 706107-6 weeks 1000 - 079335-8 weeks 87709 - 100,0006-8 weeks 71777 - 200,0002-3 months 13683 - 100,000 Performed By: #### L 700.8000 ####[facility] [address] [place], [place], [address] hCG Titer Quant., Serumon HCG QUANT. 55 mIU/mL [address] Comment on above: Result Comment: hCG levels with Gestational AgeGestational Age hCG mIU/mL (IU/L)0.2 - 1 week 5 - 501-2 weeks 50 - 5002-3 weeks 100 - 52158-7 weeks 500 - 372376-8 weeks 1000 - 822085-2 weeks 33072 - 100,0006-8 weeks 40055 - 200,0002-3 months 91392 - 100,000 Performed By: #### L 700.8000 ####[facility] [address] [place], [address] MR/BMS.BPon 07-06-2024 MR/BMS.BP Normal [facility] Chest PA and Lateralon 05-24 Chest PA and Lateral Normal [facility] Urgent Care Visit Reporton 1 07-24-2023 Urgent Care Visit Report Normal [facility] Thyroidon 05-13-2024 Thyroid Normal [facility] MR/BMS.BPon 04-28-2024 MR/BMS.BP Normal [facility] Hepatitis B Surface Antibody Ordered By: Background Lab on 02-23-2024 HBV surface Ab Ql (S) Positive Abnormal Negative mIU/mL [facility] Comment on above: Reference value: Unv accinated: Negative Vaccinated: Positive Anti-HBs concentration detected at > or = 11.5 mIU/mL. Individual is considered to be immune to infection with HBV. Hep Bs Antibody, QN 798.00 [facility] Comment on above: Reference Value: > o r = 11.5 mIU/mL - Positive Anti-HBs concentration detected at > or = 11.5 mIU/mL. Individual is considered to be immune to infection with HBV. Interpretation and review of laboratory results Abnormal [facility] - Chemistry and C hemistry - challengeOrdered By: Analia Kimbrough on 06-17-2023 HCG ( test) Ql (U) Negative [facility] Comment on above: Very dilute urine sp ecimens, as indicated by a low specificgravity, may not contain pharmaceutical specialty representative levels of hCG. If is still suspected, a first morning urinespecimen should be collected 48 hours later and tested. Basophil percentageOrdered B y: Analia Kimbrough on 06-13-2023 WBC (Bld) [#/Vol] 8.0 10*3/uL 4.4-11.0 [facility] Blood erythrocytes count (nu mber/volume)Ordered By: Analia Kimbrough on 06-13-2023 RBC (Bld) [#/Vol] 4.16 10*6/uL 4.2-5.4 [facility] Blood hemoglobin measurement (mass/volume)Ordered By: Analia Kimbrough on 06-13-2023 Hemoglobin (Bld) [Mass/Vol] 12.5 g/dL 12.0-15.0 [facility] Blood platelet mean volumeOr dered By: Analia Kimbrough on 06-13-2023 Platelet mean volume (Bld) [Entitic vol] 11.7 fL 6.2-12.0 [facility] Determination of erythrocyte mean corpuscular volume (MCV)Ordered By: Analia Kimbrough on 06-13-2023 MCV (RBC) [Entitic vol] 90.9 fL 81-99 [facility] Hematocrit Auto (Bld) [Volum e fraction]Ordered By: Analia Kimbrough on 06-13-2023 Hematocrit (Bld) [Volume fraction] 37.8 % 37-47 [facility] Laboratory - Hematology and Cell countsOrdered By: Analia Kimbrough on 06-13-2023 Erythrocyte distribution width (RBC) [Entitic vol] 40.6 fL 35.1-43.9 [facility] Erythrocyte distribution width (RBC) [Ratio] 12.4 % 11.6-14.6 [facility] MCH (RBC) [Entitic mass] 30.0 pg 27.0-32.0 [facility] MCHC Auto (RBC) [Mass/Vol]Or dered By: Analia Kimbrough on 06-13-2023 MCHC (RBC) [Mass/Vol] 33.1 g/dL 32-36 [facility] Platelets bldOrdered By: Gena Kimbrough on 06-13-2023 Platelets (Bld) [#/Vol] 279 10*3/uL 150-450 [facility] No Panel InformationOrdered By: [facility] [place] on 06-05-2023 Rubella IgG Antibody Reactive Nonreactive [facility] Comment on above: Antibody Results Int erpretation of Immune Status Non Reactive Presumed Non-Immune Equivocal Equivocal Reactive Presumed Immune Serum measles virus IgG anti body assay (units/volume)Ordered By: [employer] on 06-05-2023 MeV IgG Qn (S) 32.0 AU/mL Immune >16.4 [facility] Comment on above: Negative <13.5 Equiv ocal 13.5 - 16.4 Positive >16.4Presence of antibodies to Rubeola is presumptive evidenceof immunity except when acute infection is suspected.Performed at: [facility] [id number] Director: Joseph Doe PhD, Phone: [phone] Serum mumps virus IgG antibo dy assay (units/volume)Ordered By: [employer] on 06-05-2023 MuV IgG Qn (S) 16.1 AU/mL Immune >10.9 [facility] Comment on above: Negative <9.0 Equivo scout 9.0 - 10.9 Positive >10.9A positive result generally indicates past exposure toMumps virus or previous vaccination. Laboratory - Chemistry and C hemistry - challengeon 05-26-2023 HCG ( test) Ql (U) Negative [facility] Laboratory - Chemistry and C hemistry - challengeOrdered By: Saritha Salgado on 04-28-2023 Free T4 [Mass/Vol] 0.90 ng/dL 0.76-1.46 [facility] No Panel InformationOrdered By: Saritha Salgado on 04-28-2023 Thyroid Stimulating Hormone (TSH) 1.16 uIU/mL 0.358-3.74 [facility] Serum or plasma thyroperoxid ase antibody assay (units/volume)Ordered By: Saritha Salgado on 04-28-2023 TPO Ab Qn 23 [IU]/mL 0-34 [facility] Comment on above: Performed at: [address] Director: Joseph Doe PhD, Phone: [phone] Serum or plasma choriogonado tropin detectionOrdered By: Saritha Salgado on 03-18-2023 HCG ( test) Ql 3 mIU/mL <4 [facility] Comment on above: hCG levels with Gest ational AgeGestational Age hCG mIU/mL (IU/L)0.2 - 1 week 5 - 501-2 weeks 50 - 5002-3 weeks 100 - 52977-3 weeks 500 - 604991-2 weeks 1000 - 146879-6 weeks 61267 - 100,0006-8 weeks 15897 - 200,0002-3 months 44310 - 100,000 Serum or plasma choriogonado tropin detectionOrdered By: Saritha Salgado on 03-12-2023 HCG ( test) Ql 4 mIU/mL <4 [facility] Comment on above: hCG levels with Gest ational AgeGestational Age hCG mIU/mL (IU/L)0.2 - 1 week 5 - 501-2 weeks 50 - 5002-3 weeks 100 - 33443-4 weeks 500 - 408155-2 weeks 1000 - 592807-0 weeks 18889 - 100,0006-8 weeks 26240 - 200,0002-3 months 53630 - 100,000 Absolute lymphocyte countOrd ered By: Karey Street on 03-05-2023 Lymphocytes Auto (Unsp spec) [#/Vol] 2.30 10*3/uL 0.83-4.51 [facility] Basophil percentageOrdered B y: Karey Street on 03-05-2023 Basophils/100 WBC (Bld) 0.6 % 0-1 [facility] Eosinophils/100 WBC (Bld) 2.2 % 0-5 [facility] Neutrophils (Bld) [#/Vol] 4.1 10*3/uL 2.0-7.7 [facility] Neutrophils/100 WBC (Bld) 57.4 % 47-70 [facility] WBC (Bld) [#/Vol] 7.2 10*3/uL 4.4-11.0 [facility] Blood erythrocytes count (nu mber/volume)Ordered By: Karey Street on 03-05-2023 RBC (Bld) [#/Vol] 3.84 10*6/uL 4.2-5.4 [facility] Blood hemoglobin measurement (mass/volume)Ordered By: Karey Street on 03-05-2023 Hemoglobin (Bld) [Mass/Vol] 11.5 g/dL 12.0-15.0 [facility] Blood lymphocytes/100 leukoc ytesOrdered By: Karey Street on 03-05-2023 Lymphocytes/100 WBC (Bld) 32.0 % 19-41 [facility] Blood monocytes/100 leukocyt esOrdered By: Karey Street on 03-05-2023 Monocytes/100 WBC (Bld) 7.5 % 0-10 [facility] Blood platelet mean volumeOr dered By: Karey Street on 03-05-2023 Platelet mean volume (Bld) [Entitic vol] 12.0 fL 6.2-12.0 [facility] Determination of erythrocyte mean corpuscular volume (MCV)Ordered By: Karey Street on 03-05-2023 MCV (RBC) [Entitic vol] 94.3 fL 81-99 [facility] Hematocrit Auto (Bld) [Volum e fraction]Ordered By: Karey Street on 03-05-2023 Hematocrit (Bld) [Volume fraction] 36.2 % 37-47 [facility] Laboratory - Hematology and Cell countsOrdered By: Karey Street on 03-05-2023 Erythrocyte distribution width (RBC) [Entitic vol] 43.8 fL 35.1-43.9 [facility] Erythrocyte distribution width (RBC) [Ratio] 12.9 % 11.6-14.6 [facility] Immature granulocytes/100 WBC (Bld) 0.300 % 0.0-0.9 [facility] Comment on above: IG% - Immature Granu locytes (promyelocytes, myelocytes and metamyelocytes) > 1% indicates that a LEFT SHIFT is Present. MCH (RBC) [Entitic mass] 29.9 pg 27.0-32.0 [facility] Nucleated RBC/100 WBC (Bld) [Ratio] 0 % 0-5 [facility] MCHC Auto (RBC) [Mass/Vol]Or dered By: Karey Street on 03-05-2023 MCHC (RBC) [Mass/Vol] 31.8 g/dL 32-36 [facility] Platelets bldOrdered By: [address] on 03-05-2023 Platelets (Bld) [#/Vol] 279 10*3/uL 150-450 [facility] Serum or plasma choriogonado tropin detectionOrdered By: Karey Street on 03-05-2023 HCG ( test) Ql 7 mIU/mL <4 [facility] Serum or plasma choriogonado tropin detectionOrdered By: Karey Street on 02-19-2023 HCG ( test) Ql 36 mIU/mL <4 [facility] Comment on above: hCG levels with Gest ational AgeGestational Age hCG mIU/mL (IU/L)0.2 - 1 week 5 - 501-2 weeks 50 - 5002-3 weeks 100 - 68730-5 weeks 500 - 683279-5 weeks 1000 - 738199-2 weeks 52436 - 100,0006-8 weeks 00222 - 200,0002-3 months 58723 - 100,000 Serum or plasma choriogonado tropin detectionOrdered By: Karey Street on 02-12-2023 HCG ( test) Ql 77 mIU/mL <4 [facility] Comment on above: hCG levels with Gest ational AgeGestational Age hCG mIU/mL (IU/L)0.2 - 1 week 5 - 501-2 weeks 50 - 5002-3 weeks 100 - 76598-0 weeks 500 - 607230-5 weeks 1000 - 942794-4 weeks 32561 - 100,0006-8 weeks 27447 - 200,0002-3 months 02516 - 100,000 Serum or plasma choriogonado tropin detectionOrdered By: Saritha Salgado on 02-05-2023 HCG ( test) Ql 154 mIU/mL <4 [facility] Comment on above: hCG levels with Gest ational AgeGestational Age hCG mIU/mL (IU/L)0.2 - 1 week 5 - 501-2 weeks 50 - 5002-3 weeks 100 - 20088-0 weeks 500 - 162032-4 weeks 1000 - 816538-0 weeks 79068 - 100,0006-8 weeks 86281 - 200,0002-3 months 99113 - 100,000 Serum or plasma choriogonado tropin detectionOrdered By: Saritha Salgado on 01-29-2023 HCG ( test) Ql 361 mIU/mL <4 [facility] Comment on above: hCG levels with Gest ational AgeGestational Age hCG mIU/mL (IU/L)0.2 - 1 week 5 - 501-2 weeks 50 - 5002-3 weeks 100 - 18425-1 weeks 500 - 130690-8 weeks 1000 - 840250-6 weeks 06104 - 100,0006-8 weeks 65244 - 200,0002-3 months 91137 - 100,000 Serum or plasma choriogonado tropin detectionOrdered By: Saritha Salgado on 01-26-2023 HCG ( test) Ql 474 mIU/mL <4 [facility] Comment on above: hCG levels with Gest ational AgeGestational Age hCG mIU/mL (IU/L)0.2 - 1 week 5 - 501-2 weeks 50 - 5002-3 weeks 100 - 13207-5 weeks 500 - 821518-7 weeks 1000 - 449377-7 weeks 71783 - 100,0006-8 weeks 27205 - 200,0002-3 months 51156 - 100,000 Absolute lymphocyte countOrd ered By: Saritha Salgado on 01-23-2023 Lymphocytes Auto (Unsp spec) [#/Vol] 2.41 10*3/uL 0.83-4.51 [facility] Basophil percentageOrdered B y: Saritha Salgado on 01-23-2023 Basophils/100 WBC (Bld) 0.9 % 0-1 [facility] Bilirubin [Mass/Vol] 0.40 mg/dL 0.20-1.[address] [facility] Comment on above: For patients on eltr ombopag therapy, use of Dimension [place] TBIL is not recommended. Chloride [Moles/Vol] 105 mmol/L 98-[address] [facility] Eosinophils/100 WBC (Bld) 1.8 % 0-5 [facility] Glucose [Mass/Vol] 96 mg/dL 74-106 [facility] Neutrophils (Bld) [#/Vol] 3.6 10*3/uL 2.0-7.7 [facility] Neutrophils/100 WBC (Bld) 54.0 % 47-70 [facility] Potassium [Moles/Vol] 3.9 mmol/L 3.5-5.1 [facility] Protein [Mass/Vol] 7.9 g/dL 6.4-8.2 [facility] Sodium [Moles/Vol] 137 mmol/L 136-145 [facility] WBC (Bld) [#/Vol] 6.7 10*3/uL 4.4-11.0 [facility] Blood erythrocytes count (nu mber/volume)Ordered By: Saritha Salgado on 01-23-2023 RBC (Bld) [#/Vol] 4.09 10*6/uL 4.2-5.4 [facility] Blood hemoglobin measurement (mass/volume)Ordered By: Saritha Salgado on 01-23-2023 Hemoglobin (Bld) [Mass/Vol] 12.4 g/dL 12.0-15.0 [facility] Blood lymphocytes/100 leukoc ytesOrdered By: Saritha Salgado on 01-23-2023 Lymphocytes/100 WBC (Bld) 35.9 % 19-41 [facility] Blood monocytes/100 leukocyt esOrdered By: Saritha Salgado on 01-23-2023 Monocytes/100 WBC (Bld) 7.3 % 0-10 [facility] Blood platelet mean volumeOr dered By: Saritha Salgado on 01-23-2023 Platelet mean volume (Bld) [Entitic vol] 11.6 fL 6.2-12.0 [facility] Determination of erythrocyte mean corpuscular volume (MCV)Ordered By: Saritha Salgado on 01-23-2023 MCV (RBC) [Entitic vol] 91.0 fL 81-99 [facility] Hematocrit Auto (Bld) [Volum e fraction]Ordered By: Saritha Salgado on 01-23-2023 Hematocrit (Bld) [Volume fraction] 37.2 % 37-47 [facility] Laboratory - Chemistry and C hemistry - challengeOrdered By: Saritha Salgado on 01-23-2023 ALP [Catalytic activity/Vol] 82 U/L 45-117 [facility] ALT [Catalytic activity/Vol] 17 U/L 13-56 [facility] CO2 [Moles/Vol] 28.0 mmol/L 21.0-32.0 [facility] Globulin (S) [Mass/Vol] 4.0 g/dL 2.2-4.2 [facility] Urea nitrogen/Creatinine [Mass ratio] 11.0 mg/mg 10-20 [facility] - Hematology and Cell countsOrdered By: Saritha Salgado on 01-23-2023 Erythrocyte distribution width (RBC) [Entitic vol] 40.2 fL 35.1-43.9 [facility] Erythrocyte distribution width (RBC) [Ratio] 12.1 % 11.6-14.6 [facility] Immature granulocytes/100 WBC (Bld) 0.100 % 0.0-0.9 [facility] Comment on above: IG% - Immature Granu locytes (promyelocytes, myelocytes and metamyelocytes) > 1% indicates that a LEFT SHIFT is Present. MCH (RBC) [Entitic mass] 30.3 pg 27.0-32.0 [facility] Nucleated RBC/100 WBC (Bld) [Ratio] 0 % 0-5 [facility] Auto (RBC) [Mass/Vol]Or dered By: Saritha Salgado on 01-23-2023 MCHC (RBC) [Mass/Vol] 33.3 g/dL 32-36 [facility] No Panel InformationOrdered By: Saritha Salgado on 01-23-2023 Estimated GFR (MDRD) Amer 119 mL/min >60 [facility] Comment on above: GFR Calc Estimated GFR (MDRD) Non-Af Amer 99 mL/min >60 [facility] Comment on above: Non- GFR Calc Platelets bldOrdered By: Demario Salgado on 01-23-2023 Platelets (Bld) [#/Vol] 272 10*3/uL 150-450 [facility] Serum or plasma albumin rachel urement (mass/volume)Ordered By: Saritha Salgado on 01-23-2023 Albumin [Mass/Vol] 3.9 g/dL 3.2-5.0 [facility] Serum or plasma albumin/glob ulin mass ratioOrdered By: Saritha Salgado on 01-23-2023 Albumin/Globulin [Mass ratio] 1.0 {ratio} 0.9-2.4 [facility] Serum or plasma calcium rcahel urement (mass/volume)Ordered By: Saritha Salgado on 01-23-2023 Calcium [Mass/Vol] 8.9 mg/dL 8.5-10.1 [facility] Serum or plasma choriogonado tropin detectionOrdered By: Saritha Salgado on 01-23-2023 HCG ( test) Ql 407 mIU/mL <4 [facility] Comment on above: hCG levels with Gest ational AgeGestational Age hCG mIU/mL (IU/L)0.2 - 1 week 5 - 501-2 weeks 50 - 5002-3 weeks 100 - 18744-5 weeks 500 - 257373-9 weeks 1000 - 380570-2 weeks 97468 - 100,0006-8 weeks 10712 - 200,0002-3 months 12076 - 100,000 Serum or plasma creatinine m easurement (mass/volume)Ordered By: Saritha Salgado on 01-23-2023 Creatinine [Mass/Vol] 0.73 mg/dL 0.55-1.02 [facility] Comment on above: The validity of the calculated GFR & GFRAA in patients over 70 years has not been determined. Clinical correlation is essential. Serum or plasma urea nitroge n measurement (mass/volume)Ordered By: Saritha Salgado on 01-23-2023 Urea nitrogen [Mass/Vol] 8 mg/dL 7-18 [facility] Thin prep Papanicolaou smear with manual screeningOrdered By: Saritha Salgado on 01-23-2023 Thin prep Papanicolaou smear with manual screening 17 U/L 15-37 [facility] Thin prep Papanicolaou smear with manual screening 4 5-15 [facility] Serum or plasma choriogonado tropin detectionOrdered By: Saritha Salgado on 01-22-2023 HCG ( test) Ql 321 mIU/mL <4 [facility] Comment on above: hCG levels with Gest ational AgeGestational Age hCG mIU/mL (IU/L)0.2 - 1 week 5 - 501-2 weeks 50 - 5002-3 weeks 100 - 99354-0 weeks 500 - 588961-1 weeks 1000 - 355206-9 weeks 77431 - 100,0006-8 weeks 25067 - 200,0002-3 months 34792 - 100,000 Serum or plasma choriogonado tropin detectionOrdered By: Saritha Salgado on 01-20-2023 HCG ( test) Ql 233 mIU/mL <4 [facility] Comment on above: hCG levels with Gest ational AgeGestational Age hCG mIU/mL (IU/L)0.2 - 1 week 5 - 501-2 weeks 50 - 5002-3 weeks 100 - 13361-9 weeks 500 - 383632-5 weeks 1000 - 074316-3 weeks 77287 - 100,0006-8 weeks 37955 - 200,0002-3 months 84821 - 100,000 Dilute David's viper venom timeOrdered By: Saritha Salgado on 01-16-2023 dRVVT Coag (PPP) [Time] 38.6 s 0.0-47.0 [facility] No Panel InformationOrdered By: Saritha Salgado on 01-16-2023 Anti-Cardiolipin IgM Antibody < 9 MPL U/mL 0-12 [facility] Comment on above: Negative: <13 Indete rminate: 13 - 20 Low-Med Positive: >20 - 80 High Positive: >80 Serum beta 2 glycoprotein 1 IgA antibody detectionOrdered By: Saritha Salgado on 01-16-2023 Beta 2 glycoprotein 1 IgA Ql (S) <9 0-25 [facility] Comment on above: Result Units: GPI [...] glycoprotein 1 IgG Ql (S) <9 0-20 [facility] Comment on above: Result Units: GPI [...] glycoprotein 1 IgM Ql (S) <9 0-32 [facility] Comment on above: Result Units: GPI Ig M unitsThe reference interval reflects a 3SD or 99th percentileinterval, which is thought to represent a potentiallyclinically significant result in accordance with theInternational Consensus Statement on the classificationcriteria for definitive antiphospholipid syndrome (APS). JThromb Haem 2006;4:295-306.Performed at: [facility] [employer] [address] [address] [id number] Director: Nae Mendiola MD, Phone: [phone] at: [email or web address] [address] [id number] Director: Joseph Doe PhD, Phone: [phone] Serum cardiolipin IgG antibo dy assay by immunoassay (units/volume)Ordered By: Saritha Salgado on 01-16-2023 Cardiolipin IgG IA Qn (S) < 9 GPL U/mL 0-14 [facility] Comment on above: Negative: <15 Indete rminate: 15 - 20 Low-Med Positive: >20 - 80 High Positive: >80 Serum or plasma cardiolipin IgA antibody assay (units/volume)Ordered By: Saritha Salgado on 01-16-2023 Cardiolipin IgA Qn < 9 APL U/mL 0-[address] [facility] Comment on above: Negative: <12 Indete rminate: 12 - 20 Low-Med Positive: >20 - 80 High Positive: >80 Thin prep Papanicolaou smear with manual screeningOrdered By: Saritha Salgado on 01-16-2023 Thin prep Papanicolaou smear with manual screening 37.8 sec 0.0-47.6 [facility] Thin prep Papanicolaou smear with manual screening 0.97 Ratio 0.00-1.34 [facility] Thin prep Papanicolaou smear with manual screening 35.1 sec 0.0-43.5 [facility] Thin prep Papanicolaou smear with manual screening Comment: . [facility] Comment on above: No lupus anticoagula nt was detected. Thrombin time in platelet po or plasmaOrdered By: Saritha Salgado on 01-16-2023 Thrombin time Coag (PPP) [Time] 17.0 sec 0.0-23.0 [facility] Serum or plasma choriogonado tropin detectionOrdered By: Saritha Salgado on 01-14-2023 HCG ( test) Ql 154 mIU/mL <4 [facility] Comment on above: hCG levels with Gest ational AgeGestational Age hCG mIU/mL (IU/L)0.2 - 1 week 5 - 501-2 weeks 50 - 5002-3 weeks 100 - 17036-8 weeks 500 - 508072-2 weeks 1000 - 248333-6 weeks 37598 - 100,0006-8 weeks 47779 - 200,0002-3 months 68492 - 100,000 Serum or plasma choriogonado tropin detectionOrdered By: Saritha Salgado on 01-12-2023 HCG ( test) Ql 122 mIU/mL <4 [facility] Comment on above: hCG levels with Gest ational AgeGestational Age hCG mIU/mL (IU/L)0.2 - 1 week 5 - 501-2 weeks 50 - 5002-3 weeks 100 - 96542-7 weeks 500 - 640560-8 weeks 1000 - 799188-5 weeks 68480 - 100,0006-8 weeks 07596 - 200,0002-3 months 88738 - 100,000 Serum or plasma choriogonado tropin detectionOrdered By: Karey Street on 11-04-2022 HCG ( test) Ql < 1 mIU/mL <4 [facility] Comment on above: hCG levels with Gest ational AgeGestational Age hCG mIU/mL (IU/L)0.2 - 1 week 5 - 501-2 weeks 50 - 5002-3 weeks 100 - 29946-1 weeks 500 - 017851-3 weeks 1000 - 336432-8 weeks 51682 - 100,0006-8 weeks 90228 - 200,0002-3 months 27296 - 100,000 Serum or plasma choriogonado tropin detectionOrdered By: Dr. Kimbrough on 10-31-2022 HCG ( test) Ql < 1 mIU/mL <4 [facility] Comment on above: hCG levels with Gest ational AgeGestational Age hCG mIU/mL (IU/L)0.2 - 1 week 5 - 501-2 weeks 50 - 5002-3 weeks 100 - 45475-3 weeks 500 - 602175-3 weeks 1000 - 528466-5 weeks 16169 - 100,0006-8 weeks 87226 - 200,0002-3 months 40239 - 100,000 Laboratory - Microbiology an d Antimicrobial susceptibilityon 09-23-2022 SARS-CoV-2 (COVID-19) RNA MAE+probe Ql (Unsp spec) Not detected [facility] No Panel Informationon 09-23 POC Nasal Swab Influenza A,B Not detected [facility] POC Nasal Swab RSV Not detected [facility] No Panel Informationon 05-24 Miscellaneous Test Comment MAILED SPECIMEN [facility] Work Phone: Laboratory - Chemistry and C hemistry - challengeon 04-15-2022 Free T4 [Mass/Vol] 0.91 ng/dL 0.76-1.46 [facility] Work Phone: No Panel Informationon 04-15 Thyroid Stimulating Hormone (TSH) 0.99 uIU/mL 0.358-3.74 [facility] Work Phone: Serum or plasma thyroperoxid ase antibody assay (units/volume)on 04-15-2022 TPO Ab Qn 15 [IU]/mL 0-34 [facility] Work Phone: Comment on above: Performed at: [facility] [address] [id number] Director: Joseph Doe PhD, Phone: [phone] Basophil percentageon 2021 WBC (Bld) [#/Vol] 9.9 10*3/uL 4.4-11.0 [facility] Work Phone: Blood erythrocytes count (nu mber/volume)on 02-26-2022 RBC (Bld) [#/Vol] 3.04 10*6/uL 4.2-5.4 [facility] Work Phone: Blood hemoglobin measurement (mass/volume)on 02-26-2022 Hemoglobin (Bld) [Mass/Vol] 9.6 g/dL 12.0-15.0 [facility] Work Phone: Blood platelet mean volumeon 02-26-2022 Platelet mean volume (Bld) [Entitic vol] 11.4 fL 6.2-12.0 [facility] Work Phone: Determination of erythrocyte mean corpuscular volume (MCV)on 02-26-2022 MCV (RBC) [Entitic vol] 94.4 fL 81-99 [facility] Work Phone: Dilute David's viper venom timeon 02-26-2022 dRVVT Coag (PPP) [Time] 32.2 s 0.0-47.0 [facility] Work Phone: Hematocrit Auto (Bld) [Volum e fraction]on 02-26-2022 Hematocrit (Bld) [Volume fraction] 28.7 % 37-47 [facility] Work Phone: Laboratory - Hematology and Cell countson 02-26-2022 Erythrocyte distribution width (RBC) [Entitic vol] 48.1 fL 35.1-43.9 [facility] Work Phone: Erythrocyte distribution width (RBC) [Ratio] 14.7 % 11.6-14.6 [facility] Work Phone: MCH (RBC) [Entitic mass] 31.6 pg 27.0-32.0 [facility] Work Phone: MCHC Auto (RBC) [Mass/Vol]on 02-26-2022 MCHC (RBC) [Mass/Vol] 33.4 g/dL 32-36 [facility] Work Phone: No Panel Informationon 02-26 Anti-Cardiolipin IgM Antibody < 9 MPL U/mL 0-12 [facility] Work Phone: Comment on above: Negative: <13 Indete rminate: 13 - 20 Low-Med Positive: >20 - 80 High Positive: >80 Thyroid Stimulating Hormone (TSH) 1.80 uIU/mL 0.358-3.74 [facility] Work Phone: Toxoplasma Comment Comment . [facility] Work Phone: Comment on above: It is presumed the p atient has not been infected with andis not undergoing an acute infection with Toxoplasma. Ifsymptoms persist, submit a new specimen after three weeks. Platelets bldon 02-26-2022 Platelets (Bld) [#/Vol] 175 10*3/uL 150-450 [facility] Work Phone: Serum Parvovirus B19 IgG ant ibody assay by immunoassay (units/volume)on 02-26-2022 Parvovirus B19 IgG IA Qn (S) 0.6 index 0.0-0.8 [facility] Work Phone: Comment on above: Negative <0.9 Equivo scout 0.9 - 1.1 Positive >1.1 Serum Parvovirus B19 IgM ant ibody assay by immunoassay (units/volume)on 02-26-2022 Parvovirus B19 IgM IA Qn (S) 0.3 index 0.0-0.8 [facility] Work Phone: Comment on above: Negative <0.9 Equivo scout 0.9 - 1.1 Positive >1.1 Serum Toxoplasma gondii IgG antibody assay (units/volume)on 02-26-2022 T. gondii IgG Qn (S) < 3.0 IU/mL 0.0-7.1 [facility] Work Phone: Comment on above: Negative <7.2 Equivo scout 7.2 - 8.7 Positive >8.7Performed at: [id number] [place], [place] [id number] Director: Joseph Doe PhD, Phone: [phone] Serum Toxoplasma gondii IgM antibody assay by immunoassay (units/volume)on 02-26-2022 T. gondii IgM IA Qn (S) < 3.0 AU/mL 0.0-7.9 [facility] Work Phone: Comment on above: Negative <8.0 Equivo scout 8.0 - 9.9 Positive >9.9 Serum beta 2 glycoprotein 1 IgA antibody detectionon 02-26-2022 Beta 2 glycoprotein 1 IgA Ql (S) <9 0-25 [facility] Work Phone: Comment on above: Result [...] glycoprotein 1 IgG Ql (S) <9 0-20 [facility] Work Phone: Comment on above: Result [...] glycoprotein 1 IgM Ql (S) <9 0-32 [facility] Work Phone: Comment on above: Result [...] Qn (S) < 9 GPL U/mL 0-14 [facility] Work Phone: Comment on above: Negative: <15 Indete rminate: 15 - 20 Low-Med Positive: >20 - 80 High Positive: >80 Serum or plasma cardiolipin IgA antibody assay (units/volume)on 02-26-2022 Cardiolipin IgA Qn < 9 APL U/mL 0-[address] [facility] Work Phone: Comment on above: Negative: <12 Indete rminate: 12 - 20 Low-Med Positive: >20 - 80 High Positive: >80 Serum or plasma cytomegalovi jong (CMV) IgG antibody assay (units/volume)on 02-26-2022 CMV IgG Qn < 0.60 U/mL 0.00-0.59 [facility] Work Phone: Comment on above: Negative <0.60 Equiv ocal 0.60 - 0.69 Positive >0.69 Serum or plasma cytomegalovi jong (CMV) IgM antibody assay (units/volume)on 02-26-2022 CMV IgM Qn < 30.0 AU/mL 0.0-29.9 [facility] Work Phone: Comment on above: Negative <30.0 Equiv ocal 30.0 - 34.9 Positive >34.9A positive result is generally indicative of acuteinfection, reactivation or persistent IgM production.Performed at: [address] [id number] Director: Nae Mendiola MD, Phone: [phone] at: [address] [id number] Director: Joseph Doe PhD, Phone: [phone] Thin prep Papanicolaou smear with manual screeningon 02-26-2022 Thin prep Papanicolaou smear with manual screening 34.7 sec 0.0-47.6 [facility] Work Phone: Thin prep Papanicolaou smear with manual screening 1.19 Ratio 0.00-1.34 [facility] Work Phone: Thin prep Papanicolaou smear with manual screening 37.1 sec 0.0-51.9 [facility] Work Phone: Thin prep Papanicolaou smear with manual screening Comment: . [facility] Work Phone: Comment on above: No lupus anticoagula nt was detected. Thrombin time in platelet po or plasmaon 02-26-2022 Thrombin time Coag (PPP) [Time] 17.0 sec 0.0-23.0 [facility] Work Phone: Whole blood hemoglobin A1c/t otal hemoglobin ratio (mass fraction)on 02-26-2022 HbA1c (Bld) [Mass fraction] % 3.8-5.6 [facility] Work Phone: Comment on above: Normal < 5.7 % Predi abetic 5.7 - 6.4 % Diabetic >or= 6.5 % Please note range changes. INR in Blood by Coagulation assayon 02-25-2022 INR Coag (Bld) [Relative time] 1.1 {INR} [facility] Work Phone: Laboratory - Coagulationon 0 02-25-2022 aPTT Coag (Bld) [Time] 27.7 s 24.1-36.2 [facility] Work Phone: PT Coag (PPP) [Time] 14.1 s 11.7-14.[address] [facility] Work Phone: No Panel Informationon 02-25 Fibrinogen 320 mg/dl 203-444 [facility] Work Phone: Kleihauer-Betke Hemoglobin (L Positive [facility] Work Phone: Comment on above: Kleihauer Betke Stud y Reference: Negative POSITIVE AB* Feto-maternal hemorrhage ( RBCs): 127.5 mL. TESTING PERFORMED AT [facility]. ORIGINAL REPORT ON FILE IN LAB CONTAINS ADDITIONAL TEST SITE INFORMATION. ____ Laboratory - Chemistry and C hemistry - challengeon 02-22-2022 Glucose Ql (U) Negative [facility] Work Phone: Laboratory - Urinalysison Protein Ql (U) Negative [facility] Work Phone: Absolute lymphocyte counton 02-18-2022 Lymphocytes Auto (Unsp spec) [#/Vol] 1.57 10*3/uL 0.83-4.51 [facility] Work Phone: Basophil percentageon 2021 Basophils/100 WBC (Bld) 0.4 % 0-1 [facility] Work Phone: Eosinophils/100 WBC (Bld) 0.6 % 0-5 [facility] Work Phone: Neutrophils (Bld) [#/Vol] 4.9 10*3/uL 2.0-7.7 [facility] Work Phone: Neutrophils/100 WBC (Bld) 69.7 % 47-70 [facility] Work Phone: WBC (Bld) [#/Vol] 7.1 10*3/uL 4.4-11.0 [facility] Work Phone: Blood erythrocytes count (nu mber/volume)on 02-18-2022 RBC (Bld) [#/Vol] 3.42 10*6/uL 4.2-5.4 [facility] Work Phone: Blood hemoglobin measurement (mass/volume)on 02-18-2022 Hemoglobin (Bld) [Mass/Vol] 10.7 g/dL 12.0-15.0 [facility] Work Phone: Blood lymphocytes/100 leukoc yteson 02-18-2022 Lymphocytes/100 WBC (Bld) 22.2 % 19-41 [facility] Work Phone: Blood monocytes/100 leukocyt eson 02-18-2022 Monocytes/100 WBC (Bld) 6.4 % 0-10 [facility] Work Phone: Blood platelet mean volumeon 02-18-2022 Platelet mean volume (Bld) [Entitic vol] 11.5 fL 6.2-12.0 [facility] Work Phone: Determination of erythrocyte mean corpuscular volume (MCV)on 02-18-2022 MCV (RBC) [Entitic vol] 93.6 fL 81-99 [facility] Work Phone: Hematocrit Auto (Bld) [Volum e fraction]on 02-18-2022 Hematocrit (Bld) [Volume fraction] 32.0 % 37-47 [facility] Work Phone: Laboratory - Hematology and Cell countson 02-18-2022 Erythrocyte distribution width (RBC) [Entitic vol] 47.8 fL 35.1-43.9 [facility] Work Phone: Erythrocyte distribution width (RBC) [Ratio] 14.5 % 11.6-14.6 [facility] Work Phone: Immature granulocytes/100 WBC (Bld) 0.700 % 0.0-0.9 [facility] Work Phone: Comment on above: IG% - Immature Granu locytes (promyelocytes, myelocytes and metamyelocytes) > 1% indicates that a LEFT SHIFT is Present. MCH (RBC) [Entitic mass] 31.3 pg 27.0-32.0 [facility] Work Phone: Nucleated RBC/100 WBC (Bld) [Ratio] 0 % 0-5 [facility] Work Phone: MCHC Auto (RBC) [Mass/Vol]on 02-18-2022 MCHC (RBC) [Mass/Vol] 33.4 g/dL 32-36 [facility] Work Phone: Platelets bldon 02-18-2022 Platelets (Bld) [#/Vol] 166 10*3/uL 150-450 [facility] Work Phone: Laboratory - Chemistry and C hemistry - challengeon 02-15-2022 Glucose Ql (U) Negative [facility] Work Phone: Laboratory - Urinalysison Protein Ql (U) Negative [facility] Work Phone: Laboratory - Chemistry and C hemistry - challengeon 02-01-2022 Glucose Ql (U) Negative [facility] Work Phone: Laboratory - Urinalysison Protein Ql (U) Negative [facility] Work Phone: Laboratory - Chemistry and C hemistry - challengeon 01-18-2022 Glucose Ql (U) Negative [facility] Work Phone: Laboratory - Urinalysison Protein Ql (U) Negative [facility] Work Phone: Laboratory - Microbiology an d Antimicrobial susceptibilityon 01-13-2022 SARS-CoV-2 (COVID-19) RNA MAE+probe Ql (Unsp spec) Detected [facility] Work Phone: No Panel Informationon 01-13 Influenza Types A,B Rapid (Clinic) Not detected [facility] Work Phone: Laboratory - Microbiology an d Antimicrobial susceptibilityon 01-06-2022 SARS-CoV-2 (COVID-19) RNA MAE+probe Ql (Unsp spec) Not detected [facility] Work Phone: No Panel Informationon 01-06 POC Nasal Swab Influenza A,B Not detected [facility] Work Phone: POC Nasal Swab RSV Not detected [facility] Work Phone: Basophil percentageon 2021 WBC (Bld) [#/Vol] 7.7 10*3/uL 4.4-11.0 [facility] Work Phone: Blood erythrocytes count (nu mber/volume)on 12-07-2021 RBC (Bld) [#/Vol] 3.23 10*6/uL 4.2-5.4 [facility] Work Phone: Blood hemoglobin measurement (mass/volume)on 12-07-2021 Hemoglobin (Bld) [Mass/Vol] 10.3 g/dL 12.0-15.0 [facility] Work Phone: Blood platelet mean volumeon 12-07-2021 Platelet mean volume (Bld) [Entitic vol] 11.4 fL 6.2-12.0 [facility] Work Phone: Determination of erythrocyte mean corpuscular volume (MCV)on 12-07-2021 MCV (RBC) [Entitic vol] 94.7 fL 81-99 [facility] Work Phone: Gestational diabetes screen 1-hour screen with 50g oral glucose loadon 12-07-2021 Glucose 1 Hr post 50 g glucose PO [Mass/Vol] 145 mg/dL 70-140 [facility] Work Phone: Hematocrit Auto (Bld) [Volum e fraction]on 12-07-2021 Hematocrit (Bld) [Volume fraction] 30.6 % 37-47 [facility] Work Phone: Laboratory - Hematology and Cell countson 12-07-2021 Erythrocyte distribution width (RBC) [Entitic vol] 42.0 fL 35.1-43.9 [facility] Work Phone: Erythrocyte distribution width (RBC) [Ratio] 12.1 % 11.6-14.6 [facility] Work Phone: MCH (RBC) [Entitic mass] 31.9 pg 27.0-32.0 [facility] Work Phone: MCHC Auto (RBC) [Mass/Vol]on 12-07-2021 MCHC (RBC) [Mass/Vol] 33.7 g/dL 32-36 [facility] Work Phone: Platelets bldon 12-07-2021 Platelets (Bld) [#/Vol] 240 10*3/uL 150-450 [facility] Work Phone: Laboratory - Hematology and Cell countson 11-27-2021 Hematocrit (Bld) [Volume fraction] 30.6 % [facility] Work Phone: MCV (RBC) [Entitic vol] 94.7 fL [facility] Work Phone: No Panel Informationon 11-27 Platelet Count (Clinic) 240 g/gL [facility] Work Phone: Iron measurement (mass/mass) on 09-07-2021 Iron (Unsp spec) [Mass/Mass] 47 ug/dL 50-170 [facility] Work Phone: No Panel Informationon 09-07 Total Iron Binding Capacity 342 ug/dL 250-450 [facility] Work Phone: Serum or plasma ferritin lakshmi surement (mass/volume)on 09-07-2021 Ferritin [Mass/Vol] 19 ng/mL 8-252 [facility] Work Phone: Basophil percentageon 2021 Chloride [Moles/Vol] 102 mmol/L 98-[address] [facility] Work Phone: Glucose [Mass/Vol] 78 mg/dL 74-106 [facility] Work Phone: Potassium [Moles/Vol] 3.6 mmol/L 3.5-5.1 [facility] Work Phone: Sodium [Moles/Vol] 135 mmol/L 136-145 [facility] Work Phone: Laboratory - Chemistry and C hemistry - challengeon 08-22-2021 CO2 [Moles/Vol] 27.0 mmol/L 21.0-32.0 [facility] Work Phone: Urea nitrogen/Creatinine [Mass ratio] 18.7 mg/mg 10-20 [facility] Work Phone: No Panel Informationon 08-22 Estimated GFR (MDRD) Amer 127 mL/min >60 [facility] Work Phone: Comment on above: GFR Calc Estimated GFR (MDRD) Non-Af Amer 105 mL/min >60 [facility] Work Phone: Comment on above: Non- GFR Calc Serum or plasma calcium rachel urement (mass/volume)on 08-22-2021 Calcium [Mass/Vol] 8.9 mg/dL 8.5-10.1 [facility] Work Phone: Serum or plasma creatinine m easurement (mass/volume)on 08-22-2021 Creatinine [Mass/Vol] 0.70 mg/dL 0.55-1.02 [facility] Work Phone: Comment on above: The validity of the calculated GFR & GFRAA in patients over 70 years has not been determined. Clinical correlation is essential. Serum or plasma urea nitroge n measurement (mass/volume)on 08-22-2021 Urea nitrogen [Mass/Vol] 13 mg/dL 7-18 [facility] Work Phone: Thin prep Papanicolaou smear with manual screeningon 08-22-2021 Thin prep Papanicolaou smear with manual screening 6 5-15 [facility] Work Phone: Basophil percentageon 2021 Chloride [Moles/Vol] 104 mmol/L 98-[address] [facility] Work Phone: Glucose [Mass/Vol] 87 mg/dL 74-106 [facility] Work Phone: Potassium [Moles/Vol] 3.7 mmol/L 3.5-5.1 [facility] Work Phone: Sodium [Moles/Vol] 136 mmol/L 136-145 [facility] Work Phone: Basophil percentage 10-25 SEEN /hpf [facility] Work Phone: Bilirubin Test strip Ql (U)o n 08-20-2021 Bilirubin Ql (U) Negative Negative [facility] Work Phone: Culture, urineon 08-20-2021 Bacteria identified Cx Nom (U) Positive [facility] Work Phone: Ketones Test strip Ql (U)on 08-20-2021 Ketones Ql (U) 50 mg/dl Negative [facility] Work Phone: Laboratory - Chemistry and C hemistry - challengeon 08-20-2021 CO2 [Moles/Vol] 27.0 mmol/L 21.0-32.0 [facility] Work Phone: Urea nitrogen/Creatinine [Mass ratio] 16.4 mg/mg 10-20 [facility] Work Phone: Mucus LM Ql (Urine sed)on Mucus Ql (Urine sed) 0 SEEN /hpf [facility] Work Phone: Nitrite Test strip Ql (U)on 08-20-2021 Nitrite Ql (U) Negative Negative [facility] Work Phone: No Panel Informationon 08-20 Estimated Creatinine Clearance Calc 85.03 ml/min [facility] Work Phone: Estimated GFR (MDRD) Amer 119 mL/min >60 [facility] Work Phone: Comment on above: GFR Calc Estimated GFR (MDRD) Non-Af Amer 99 mL/min >60 [facility] Work Phone: Comment on above: Non- GFR Calc Protein Test strip Ql (U)on 08-20-2021 Protein Ql (U) 15 mg/dl Negative [facility] [facility] Work Phone: Serum or plasma calcium rachel urement (mass/volume)on 08-20-2021 Calcium [Mass/Vol] 9.6 mg/dL 8.5-10.1 [facility] Work Phone: Serum or plasma creatinine m easurement (mass/volume)on 08-20-2021 Creatinine [Mass/Vol] 0.73 mg/dL 0.55-1.02 [facility] Work Phone: Comment on above: The validity of the calculated GFR & GFRAA in patients over 70 years has not been determined. Clinical correlation is essential. Serum or plasma urea nitroge n measurement (mass/volume)on 08-20-2021 Urea nitrogen [Mass/Vol] 12 mg/dL 7-18 [facility] Work Phone: Squamous epithelial cells de tection in urine sediment by light microscopyon 08-20-2021 Epithelial cells.squamous LM Ql (Urine sed) 5-10 SEEN /hpf [facility] Work Phone: Thin prep Papanicolaou smear with manual screeningon 08-20-2021 Thin prep Papanicolaou smear with manual screening 5 5-15 [facility] Work Phone: Urine blood detectionon 07-23 RBC Ql (U) Negative Negative [facility] Work Phone: RBC Ql (U) 0 SEEN /hpf [facility] Work Phone: Urine clarityon 08-20-2021 Clarity (U) Sl. Cloudy Clear [facility] Work Phone: Urine color determinationon 08-20-2021 Color (U) Yellow Yellow [facility] Work Phone: Urine glucose detectionon Glucose Ql (U) Normal mg/dl Normal [facility] Work Phone: Urine leukocyte esterase det ection by dipstickon 08-20-2021 Leukocyte esterase Test strip Ql (U) 100 /ul Negative [facility] Work Phone: Urine pHon 08-20-2021 pH (U) 6.5 [pH] [facility] Work Phone: Urine sediment bacteria coun t by microscopy (number/high power field)on 08-20-2021 Bacteria LM.HPF (Urine sed) [#/Area] 3 /[HPF] None Seen [facility] Work Phone: Urine specific gravity measu rementon 08-20-2021 Specific gravity (U) [Rel density] 1.020 [facility] Work Phone: Urobilinogen Auto test strip Ql (U)on 08-20-2021 Urobilinogen Ql (U) Normal mg/dl Normal [facility] Work Phone: No Panel Information Group B Streptococcus Culture Group B Beta Streptococcus is not isolated. [facility] Work Phone: Vital Signs Date Time Vital Sign Value Performing Clinician Faci lity 01-27-2025 12:35-0400 Body temperature 98.4 [degF] Alejandra mPura Work Phone: [facility] 01-27-2025 12:35-0400 Diastolic blood pressure 66 mm[Hg] Alejandra mPura Work Phone: [facility] 01-27-2025 12:35-0400 Heart rate 77 /min AlejandraSpacebar Work Phone: [facility] 01-27-2025 12:35-0400 Respiratory rate 16 /min [employer] Work Phone: [facility] 01-27-2025 12:35-0400 SaO2% (BldA) [Mass fraction] 100 % Alejandra mPura Work Phone: [facility] 01-27-2025 12:35-0400 Systolic blood pressure 97 mm[Hg] Alejandra mPura Work Phone: [employer] [facility] 01-27-2025 03:17-0400 Body height 157.5 cm Alejnadra mPura Work Phone: [facility] 01-27-2025 03:17-0400 Body mass index (BMI) [Ratio] 24.69 kg/m2 Alejandra [employer] Phone: [facility] 01-27-2025 03:17-0400 Body weight 61.24 kg Alejandra Tena DO Work Phone: [facility] 06-17-2023 18:00-0500 Body temperature 98.2 [degF] No Primary Care Physician [facility] 06-17-2023 18:00-0500 Diastolic blood pressure 60 mm[Hg] No Primary Care Physician [facility] 06-17-2023 18:00-0500 Heart rate 65 /min No Primary Care Physician [facility] 06-17-2023 18:00-0500 Respiratory rate 18 /min No Primary Care Physician [facility] 06-17-2023 18:00-0500 SaO2% (BldA) [Mass fraction] 97 % No Primary Care Physician [facility] 06-17-2023 18:00-0500 Systolic blood pressure 101 mm[Hg] No Primary Care Physician [facility] 06-17-2023 13:35-0500 Body height 154.94 cm No Primary Care Physician [facility] 06-17-2023 13:35-0500 Body mass index (BMI) [Ratio] 30.2 kg/m2 No Primary Care Physician [facility] 06-17-2023 13:35-0500 Body weight 72.5 kg No Primary Care Physician [facility] 05-26-2023 13:40-0500 Body mass index (BMI) [Ratio] 29.7 kg/m2 No Primary Care Physician [facility] 05-26-2023 13:40-0500 Body weight 71.27 kg No Primary Care Physician [facility] 05-26-2023 13:40-0500 Diastolic blood pressure 82 mm[Hg] No Primary Care Physician [facility] 05-26-2023 13:40-0500 Systolic blood pressure 120 mm[Hg] No Primary Care Physician [facility] 04-17-2023 11:46-0400 Body height 154.94 cm No Primary Care Physician [facility] 04-17-2023 11:38-0400 Body mass index (BMI) [Ratio] 29.2 kg/m2 No Primary Care Physician [facility] 04-17-2023 11:38-0400 Body weight 70.36 kg No Primary Care Physician [facility] 04-17-2023 11:38-0400 Diastolic blood pressure 72 mm[Hg] No Primary Care Physician [facility] 04-17-2023 11:38-0400 Systolic blood pressure 109 mm[Hg] No Primary Care Physician [facility] 01-23-2023 09:55-0400 Body height 154.94 cm No Primary Care Physician [facility] 01-23-2023 09:54-0400 Diastolic blood pressure 73 mm[Hg] No Primary Care Physician [facility] 01-23-2023 09:54-0400 Systolic blood pressure 114 mm[Hg] No Primary Care Physician [facility] 10-17-2022 09:05-0400 Body height 154.94 cm No Primary Care Physician [facility] 10-17-2022 09:05-0400 Body temperature 98.5 [degF] No Primary Care Physician [facility] 10-17-2022 09:05-0400 Diastolic blood pressure 68 mm[Hg] No Primary Care Physician [facility] 10-17-2022 09:05-0400 Heart rate 83 /min No Primary Care Physician [facility] 10-17-2022 09:05-0400 SaO2% (BldA) [Mass fraction] 95 % No Primary Care Physician [facility] 10-17-2022 09:05-0400 Systolic blood pressure 98 mm[Hg] No Primary Care Physician [facility] 09-09-2022 09:53-0500 Body temperature 97.6 [degF] No Primary Care Physician [facility] 09-09-2022 09:53-0500 Diastolic blood pressure 72 mm[Hg] No Primary Care Physician [facility] 09-09-2022 09:53-0500 Heart rate 78 /min No Primary Care Physician [facility] 09-09-2022 09:53-0500 Respiratory rate 16 /min No Primary Care Physician [facility] 09-09-2022 09:53-0500 SaO2% (BldA) [Mass fraction] 98 % No Primary Care Physician [facility] 09-09-2022 09:53-0500 Systolic blood pressure 102 mm[Hg] No Primary Care Physician [facility] 08-02-2022 15:45-0500 Body mass index (BMI) [Ratio] 28.9 kg/m2 No Primary Care Physician [facility] 08-02-2022 15:45-0500 Body weight 69.39 kg No Primary Care Physician [facility] 08-02-2022 15:45-0500 Diastolic blood pressure 78 mm[Hg] No Primary Care Physician [facility] 08-02-2022 15:45-0500 Systolic blood pressure 118 mm[Hg] No Primary Care Physician [facility] 05-13-2022 09:26-0400 Body height 154.94 cm No Primary Care Physician [facility] Work Phone: 05-13-2022 09:26-0400 Body mass index (BMI) [Ratio] 27.8 kg/m2 No Primary Care Physician [facility] Work Phone: 05-13-2022 09:26-0400 Body temperature 97.6 [degF] No Primary Care Physician [facility] Work Phone: 05-13-2022 09:26-0400 Body weight 66.67 kg No Primary Care Physician [facility] Work Phone: 05-13-2022 09:26-0400 Diastolic blood pressure 71 mm[Hg] No Primary Care Physician [facility] Work Phone: 05-13-2022 09:26-0400 Heart rate 86 /min No Primary Care Physician [facility] Work Phone: 05-13-2022 09:26-0400 Respiratory rate 16 /min No Primary Care Physician [facility] Work Phone: 05-13-2022 09:26-0400 SaO2% (BldA) [Mass fraction] 94 % No Primary Care Physician [facility] Work Phone: 05-13-2022 09:26-0400 Systolic blood pressure 108 mm[Hg] No Primary Care Physician [facility] Work Phone: 04-15-2022 15:52-0400 Body height 154.94 cm No Primary Care Physician [facility] Work Phone: 04-15-2022 15:52-0400 Body mass index (BMI) [Ratio] 27.4 kg/m2 No Primary Care Physician [facility] Work Phone: 04-15-2022 15:52-0400 Body weight 68.03 kg No Primary Care Physician [facility] Work Phone: 04-15-2022 15:52-0400 Diastolic blood pressure 75 mm[Hg] No Primary Care Physician [facility] Work Phone: 04-15-2022 15:52-0400 Systolic blood pressure 119 mm[Hg] No Primary Care Physician [facility] Work Phone: 03-12-2022 11:54-0400 Body mass index (BMI) [Ratio] 27.4 kg/m2 No Primary Care Physician [facility] Work Phone: 03-12-2022 11:54-0400 Body weight 68.03 kg No Primary Care Physician [facility] Work Phone: 03-12-2022 11:54-0400 Diastolic blood pressure 64 mm[Hg] No Primary Care Physician [facility] Work Phone: 03-12-2022 11:54-0400 Systolic blood pressure 102 mm[Hg] No Primary Care Physician [facility] Work Phone: 02-26-2022 16:45-0400 Body temperature 97.8 [degF] No Primary Care Physician [facility] Work Phone: 02-26-2022 16:45-0400 Diastolic blood pressure 58 mm[Hg] No Primary Care Physician [facility] Work Phone: 02-26-2022 16:45-0400 Heart rate 81 /min No Primary Care Physician [facility] Work Phone: 02-26-2022 16:45-0400 Respiratory rate 16 /min No Primary Care Physician [facility] Work Phone: 02-26-2022 16:45-0400 SaO2% (BldA) [Mass fraction] 98 % No Primary Care Physician [facility] Work Phone: 02-26-2022 16:45-0400 Systolic blood pressure 95 mm[Hg] No Primary Care Physician [facility] Work Phone: 02-25-2022 10:35-0400 Body height 154.94 cm No Primary Care Physician [facility] Work Phone: 02-25-2022 10:35-0400 Body mass index (BMI) [Ratio] 30.2 kg/m2 No Primary Care Physician [facility] Work Phone: 02-25-2022 10:35-0400 Body weight 72.57 kg No Primary Care Physician [facility] Work Phone: 02-22-2022 13:49-0400 Body height 154.94 cm No Primary Care Physician [facility] Work Phone: 02-22-2022 13:49-0400 Body mass index (BMI) [Ratio] 30.2 kg/m2 No Primary Care Physician [facility] Work Phone: 02-22-2022 13:49-0400 Body weight 72.63 kg No Primary Care Physician [facility] Work Phone: 02-22-2022 13:49-0400 Diastolic blood pressure 60 mm[Hg] No Primary Care Physician [facility] Work Phone: 02-22-2022 13:49-0400 Systolic blood pressure 100 mm[Hg] No Primary Care Physician [facility] Work Phone: 02-15-2022 14:07-0400 Body mass index (BMI) [Ratio] 30.2 kg/m2 No Primary Care Physician [facility] Work Phone: 02-15-2022 14:07-0400 Body weight 72.63 kg No Primary Care Physician [facility] Work Phone: 02-15-2022 14:07-0400 Diastolic blood pressure 76 mm[Hg] No Primary Care Physician [facility] Work Phone: 02-15-2022 14:07-0400 Systolic blood pressure 118 mm[Hg] No Primary Care Physician [facility] Work Phone: 02-01-2022 14:03-0400 Body mass index (BMI) [Ratio] 30.2 kg/m2 No Primary Care Physician [facility] Work Phone: 02-01-2022 14:03-0400 Body weight 72.57 kg No Primary Care Physician [facility] Work Phone: 02-01-2022 14:03-0400 Diastolic blood pressure 78 mm[Hg] No Primary Care Physician [facility] Work Phone: 02-01-2022 14:03-0400 Systolic blood pressure 128 mm[Hg] No Primary Care Physician [facility] Work Phone: 01-18-2022 13:58-0400 Body mass index (BMI) [Ratio] 29.7 kg/m2 No Primary Care Physician [facility] Work Phone: 01-18-2022 13:58-0400 Body weight 71.32 kg No Primary Care Physician [facility] Work Phone: 01-18-2022 13:58-0400 Diastolic blood pressure 78 mm[Hg] No Primary Care Physician [facility] Work Phone: 01-18-2022 13:58-0400 Systolic blood pressure 108 mm[Hg] No Primary Care Physician [facility] Work Phone: 01-13-2022 08:15-0400 Body temperature 98.2 [degF] No Primary Care Physician [facility] Work Phone: 01-13-2022 08:15-0400 Diastolic blood pressure 74 mm[Hg] No Primary Care Physician [facility] Work Phone: 01-13-2022 08:15-0400 Heart rate 103 /min No Primary Care Physician [facility] Work Phone: 01-13-2022 08:15-0400 Respiratory rate 14 /min No Primary Care Physician [facility] Work Phone: 01-13-2022 08:15-0400 SaO2% (BldA) [Mass fraction] 97 % No Primary Care Physician [facility] Work Phone: 01-13-2022 08:15-0400 Systolic blood pressure 122 mm[Hg] No Primary Care Physician [facility] Work Phone: 01-06-2022 14:26-0400 Diastolic blood pressure 62 mm[Hg] No Primary Care Physician [facility] Work Phone: 01-06-2022 14:26-0400 Systolic blood pressure 104 mm[Hg] No Primary Care Physician [facility] Work Phone: 01-06-2022 13:05-0400 Body temperature 99.5 [degF] No Primary Care Physician [facility] Work Phone: 01-06-2022 13:05-0400 Heart rate 110 /min No Primary Care Physician [facility] Work Phone: 01-06-2022 13:05-0400 Respiratory rate 15 /min No Primary Care Physician [facility] Work Phone: 01-06-2022 13:05-0400 SaO2% (BldA) [Mass fraction] 98 % No Primary Care Physician [facility] Work Phone: 08-20-2021 17:02-0500 Body temperature 98.4 [degF] No Primary Care Physician [facility] Work Phone: 08-20-2021 17:02-0500 Diastolic blood pressure 78 mm[Hg] No Primary Care Physician [facility] Work Phone: 08-20-2021 17:02-0500 Heart rate 88 /min No Primary Care Physician [facility] Work Phone: 08-20-2021 17:02-0500 Respiratory rate 16 /min No Primary Care Physician [facility] Work Phone: 08-20-2021 17:02-0500 SaO2% (BldA) [Mass fraction] 98 % No Primary Care Physician [facility] Work Phone: 08-20-2021 17:02-0500 Systolic blood pressure 120 mm[Hg] No Primary Care Physician [facility] Work Phone: 08-20-2021 15:15-0500 Body height 154.94 cm No Primary Care Physician [facility] Work Phone: 08-20-2021 15:15-0500 Body mass index (BMI) [Ratio] 26.6 kg/m2 No Primary Care Physician [facility] Work Phone: 08-20-2021 15:15-0500 Body weight 63.9 kg No Primary Care Physician [facility] Work Phone: Encounters Encounter Date Encounter Type Care Provider Facility Start: 03-11-2025 ambulatory No Primary Car e Physician Facility:[facility] Start: 03-04-2025 ambulatory Saritha Cardona lity:[facility] Start: 03-04-2025 End: 03-04-2025 ambulatory Saritha Salgado Facility:[facility] Start: 03-04-2025 End: 03-04-2025 ambulatory Saritha Salgado Facility:[facility] Start: 03-01-2025 End: 03-01-2025 ambulatory [facility] Start: 02-22-2025 ambulatory Analia Oconnellty:[facility] Start: 02-22-2025 End: 02-22-2025 ambulatory No Primary Care Physician Facility:[facility] Start: 02-22-2025 End: 02-22-2025 ambulatory No Primary Care Physician Facility:[facility] Start: 02-21-2025 End: 02-21-2025 ambulatory [facility] Rula [facility] Start: 02-18-2025 End: 02-18-2025 ambulatory Saritha Salgado Facility:[facility] Start: 02-17-2025 End: 02-17-2025 ambulatory ANALIA Horta [facility] Start: 02-07-2025 End: 02-07-2025 ambulatory Saritha Salgado Facility:[facility] Start: 02-07-2025 End: 02-07-2025 ambulatory Saritha Salgado Facility:[facility] Start: 02-04-2025 End: 02-04-2025 ambulatory MD NO PRIMARY CARE [facility] Start: 02-01-2025 End: 02-01-2025 ambulatory No Primary Care Physician Facility:[facility] Start: 02-01-2025 End: 02-01-2025 ambulatory No Primary Care Physician Facility:[facility] Start: 01-26-2025 End: 01-27-2025 Evaluation and management of inpatient Alejandra Tena DO Work Phone: [facility] Start: 01-26-2025 End: 01-26-2025 ambulatory No Primary Care Physician Facility:[facility] Start: 01-26-2025 End: 01-26-2025 Emergency department patient visit Brian Dominguez Facility:[facility] Start: 01-25-2025 End: 01-25-2025 ambulatory NO PRIMARY CARE [facility] Start: 01-17-2025 End: 01-17-2025 ambulatory Analia Mcgregor Facility:[facility] Start: 01-17-2025 End: 01-17-2025 ambulatory Analia Mcgregor Facility:[facility] Start: 01-06-2025 End: 01-06-2025 ambulatory Analia Mcgregor Facility:[facility] Start: 12-30-2024 End: 12-30-2024 ambulatory [facility] Start: 12-08-2024 End: 12-08-2024 ambulatory Analia Mcgregor Facility:[facility] Start: 12-07-2024 End: 12-07-2024 ambulatory Albaro Jimenez Facility:[facility] Start: 11-30-2024 End: 11-30-2024 ambulatory NO PRIMARY CARE [facility] Start: 11-29-2024 End: 11-29-2024 ambulatory JAYSON BATES [facility] Start: 11-09-2024 End: 11-09-2024 ambulatory Saritha Salgado Facility:[facility] Start: 11-09-2024 End: 11-09-2024 ambulatory Saritha Salgado Facility:[facility] Start: 10-25-2024 End: 10-25-2024 ambulatory NO PRIMARY CARE [facility] Start: 10-20-2024 End: 10-20-2024 ambulatory Saritha Marcanthony Facility:[facility] Start: 10-19-2024 End: 10-19-2024 ambulatory Albaro L Tony Facility:[facility] Start: 10-06-2024 End: 10-06-2024 ambulatory Saritha Marcanthony Facility:[facility] Start: 10-05-2024 End: 10-05-2024 Subsequent hospital visit by physician Ashley Villarreal MD Work Phone: [facility] Comment on above: History of Start: 10-05-2024 End: 10-06-2024 ambulatory NO PRIMARY CARE [facility] Start: 09-27-2024 End: 09-27-2024 ambulatory NO PRIMARY CARE [facility] Start: 09-26-2024 End: 09-26-2024 Emergency department patient visit Damaso Whitfield Facility:[facility] Start: 09-15-2024 End: 09-15-2024 ambulatory Saritha Marckirstyony Facility:[facility] Start: 09-15-2024 End: 09-15-2024 ambulatory Albaro Jimenez Facility:[facility] Start: 09-08-2024 End: 09-08-2024 ambulatory Jessica Reyes Facility:[facility] Start: 08-30-2024 End: 08-30-2024 ambulatory Sarithademarcus Gundersonony Facility:[facility] Start: 08-23-2024 End: 08-23-2024 ambulatory Saritha Marcanthony Facility:[facility] Start: 08-23-2024 End: 08-23-2024 ambulatory Saritha Marcanthony Facility:[facility] Start: 08-17-2024 End: 08-17-2024 ambulatory Saritha Marcanthony Facility:[facility] Start: 08-01-2024 End: 08-01-2024 ambulatory Saritha Marcanthony Facility:[facility] Start: 07-30-2024 End: 07-30-2024 ambulatory Saritha Marcanthony Facility:[facility] Start: 07-28-2024 End: 07-28-2024 ambulatory Saritha Marcanthony Facility:[facility] Start: 07-06-2024 End: 07-06-2024 ambulatory Albaro Jimenez [facility] Start: 05-27-2024 ambulatory Saritha Salgado Faci lity:[facility] Start: 05-24-2024 End: 05-24-2024 ambulatory No Primary Care Physician Facility:[facility] Start: 05-13-2024 End: 05-13-2024 ambulatory No Primary Care Physician Facility:[facility] Start: 04-28-2024 End: 04-28-2024 ambulatory No Primary Care Physician Facility:[facility] Start: 04-16-2024 End: 04-16-2024 ambulatory Analia Mcgrgeor Facility:[facility] Start: 04-16-2024 ambulatory Analia Tafoyarosette Luis E Fa cility:[facility] Start: 02-23-2024 End: 02-23-2024 Subsequent hospital visit by physician Margaret TERRY Work Phone: [facility] Comment on above: Arrived Start: 06-17-2023 Non-patient / Non-visit No Primary Care Physician [facility] Start: 06-17-2023 End: 06-17-2023 Admission to same day surgery center No Primary Care Physician [facility] Start: 06-17-2023 End: 06-17-2023 ambulatory No Primary Care Physician [facility] Work Phone: Start: 06-05-2023 Registered Referred No Primary Care Physician [facility] Start: 05-26-2023 End: 05-26-2023 Patient encounter procedure No Primary Care Physician [facility] Work Phone: Start: 05-26-2023 End: 05-26-2023 Patient encounter procedure No Primary Care Physician [facility] Work Phone: Start: 05-15-2023 End: 05-15-2023 ambulatory No Primary Care Physician [facility] Work Phone: Start: 05-15-2023 End: 05-15-2023 Patient encounter procedure No Primary Care Physician [facility] Work Phone: Start: 04-28-2023 End: 04-28-2023 ambulatory No Primary Care Physician [facility] Work Phone: Start: 04-28-2023 End: 04-28-2023 Patient encounter procedure No Primary Care Physician [facility] Work Phone: Start: 04-17-2023 End: 04-17-2023 Patient encounter procedure No Primary Care Physician [facility] Work Phone: Start: 03-18-2023 End: 03-18-2023 ambulatory No Primary Care Physician [facility] Work Phone: Start: 03-18-2023 End: 03-18-2023 Patient encounter procedure No Primary Care Physician [facility] Start: 03-12-2023 End: 03-12-2023 ambulatory No Primary Care Physician [facility] Work Phone: Start: 03-12-2023 End: 03-12-2023 Patient encounter procedure No Primary Care Physician [facility] Work Phone: Start: 03-05-2023 End: 03-05-2023 ambulatory No Primary Care Physician [facility] Work Phone: Start: 03-05-2023 End: 03-05-2023 Patient encounter procedure No Primary Care Physician [facility] Work Phone: Start: 03-04-2023 End: 03-04-2023 Patient encounter procedure No Primary Care Physician [facility] Work Phone: Start: 02-24-2023 End: 02-24-2023 Patient encounter procedure No Primary Care Physician [facility] Work Phone: Start: 02-19-2023 End: 02-19-2023 ambulatory No Primary Care Physician [facility] Work Phone: Start: 02-19-2023 End: 02-19-2023 Patient encounter procedure No Primary Care Physician [facility] Start: 02-13-2023 End: 02-13-2023 Patient encounter procedure No Primary Care Physician [facility] Work Phone: Start: 02-12-2023 End: 02-12-2023 ambulatory No Primary Care Physician [facility] Work Phone: Start: 02-12-2023 End: 02-12-2023 Patient encounter procedure No Primary Care Physician [facility] Work Phone: Start: 02-05-2023 End: 02-05-2023 ambulatory No Primary Care Physician [facility] Work Phone: Start: 02-05-2023 End: 02-05-2023 Patient encounter procedure No Primary Care Physician [facility] Work Phone: Start: 01-29-2023 End: 01-29-2023 ambulatory No Primary Care Physician [facility] Work Phone: Start: 01-29-2023 End: 01-29-2023 Patient encounter procedure No Primary Care Physician [facility] Work Phone: Start: 01-26-2023 End: 01-26-2023 ambulatory No Primary Care Physician [facility] Work Phone: Start: 01-26-2023 End: 01-26-2023 Patient encounter procedure No Primary Care Physician [facility] Work Phone: Start: 01-23-2023 End: 01-23-2023 ambulatory No Primary Care Physician [facility] Work Phone: Start: 01-23-2023 End: 01-23-2023 Patient encounter procedure No Primary Care Physician [facility] Work Phone: Start: 01-22-2023 End: 01-22-2023 ambulatory No Primary Care Physician [facility] Work Phone: Start: 01-22-2023 End: 01-22-2023 Patient encounter procedure No Primary Care Physician [facility] Work Phone: Start: 01-16-2023 End: 01-16-2023 ambulatory No Primary Care Physician [facility] Work Phone: Start: 01-16-2023 End: 01-16-2023 Patient encounter procedure No Primary Care Physician [facility] Work Phone: Start: 01-14-2023 End: 01-14-2023 ambulatory No Primary Care Physician [facility] Work Phone: Start: 01-14-2023 End: 01-14-2023 Patient encounter procedure No Primary Care Physician [facility], [facility] Work Phone: Start: 01-14-2023 End: 01-14-2023 ambulatory No Primary Care Physician [facility] Work Phone: Start: 01-14-2023 End: 01-14-2023 Patient encounter procedure No Primary Care Physician [facility] Work Phone: Start: 01-12-2023 End: 01-12-2023 Patient encounter procedure No Primary Care Physician [facility] Work Phone: Start: 11-14-2022 End: 11-14-2022 Patient encounter procedure No Primary Care Physician [facility] Work Phone: Start: 11-04-2022 End: 11-04-2022 ambulatory No Primary Care Physician [facility] Work Phone: Start: 11-04-2022 End: 11-04-2022 Patient encounter procedure No Primary Care Physician [facility], Specimen Start: 10-31-2022 End: 10-31-2022 ambulatory No Primary Care Physician [facility] Work Phone: Start: 10-31-2022 End: 10-31-2022 Patient encounter procedure No Primary Care Physician [facility] Start: 10-17-2022 End: 10-17-2022 Patient encounter procedure No Primary Care Physician [facility] Start: 09-23-2022 End: 09-23-2022 Patient encounter procedure No Primary Care Physician [facility] Start: 09-19-2022 End: 09-19-2022 Patient encounter procedure No Primary Care Physician [facility] Start: 09-09-2022 End: 09-09-2022 Patient encounter procedure No Primary Care Physician [facility] Start: 09-09-2022 End: 09-09-2022 Patient encounter procedure No Primary Care Physician [facility] Start: 08-02-2022 End: 08-02-2022 Patient encounter procedure No Primary Care Physician [facility] Start: 05-24-2022 End: 05-24-2022 ambulatory No Primary Care Physician [facility] Work Phone: Start: 05-24-2022 End: 05-24-2022 Patient encounter procedure No Primary Care Physician [facility] Start: 05-13-2022 End: 05-13-2022 ambulatory No Primary Care Physician [facility] Work Phone: Start: 05-13-2022 End: 05-13-2022 Patient encounter procedure No Primary Care Physician [facility], Specimen Start: 05-13-2022 End: 05-13-2022 Patient encounter procedure No Primary Care Physician [facility] Start: 04-30-2022 End: 04-30-2022 ambulatory No Primary Care Physician [facility] Work Phone: Start: 04-30-2022 End: 04-30-2022 Patient encounter procedure No Primary Care Physician [facility] Start: 04-15-2022 End: 04-15-2022 ambulatory No Primary Care Physician [facility] Work Phone: Start: 04-15-2022 End: 04-15-2022 Patient encounter procedure No Primary Care Physician [facility] Start: 04-10-2022 End: 04-10-2022 Patient encounter procedure No Primary Care Physician [facility] Start: 03-12-2022 End: 03-12-2022 Patient encounter procedure No [facility] Start: 02-26-2022 Non-patient / Non-visit No Primary Care Physician [facility] Start: 02-25-2022 Non-patient / Non-visit No Primary Care Physician [facility] Start: 02-25-2022 End: 02-26-2022 Evaluation and management of inpatient No Primary Care Physician [facility] Start: 02-25-2022 End: 02-25-2022 Patient encounter procedure No Primary Care Physician [facility] Start: 02-25-2022 End: 02-25-2022 Patient encounter procedure No Primary Care Physician [facility] Start: 02-22-2022 End: 02-22-2022 Patient encounter procedure No Primary Care Physician [facility] Start: 02-22-2022 End: 02-22-2022 Patient encounter procedure No Primary Care Physician [facility], Specimen Start: 02-18-2022 End: 02-18-2022 Patient encounter procedure No Primary Care Physician [facility] Start: 02-15-2022 End: 02-15-2022 Patient encounter procedure No Primary Care Physician [facility] Start: 02-11-2022 End: 02-11-2022 Patient encounter procedure No Primary Care Physician [facility] Start: 02-04-2022 End: 02-04-2022 Patient encounter procedure No Primary Care Physician [facility] Start: 02-01-2022 End: 02-01-2022 Patient encounter procedure No Primary Care Physician [facility] Start: 01-29-2022 End: 01-29-2022 Patient encounter procedure No Primary Care Physician [facility] Start: 01-25-2022 End: 01-25-2022 Patient encounter procedure No Primary Care Physician [facility] Start: 01-18-2022 End: 01-18-2022 Patient encounter procedure No [facility] Care Phys[facility] Start: 01-13-2022 End: 01-13-2022 Patient encounter procedure No Primary Care Physician [facility] Start: 01-06-2022 End: 01-06-2022 Patient encounter procedure No Primary Care Physician [facility] Start: 12-25-2021 End: 12-25-2021 Patient encounter procedure No Primary Care Physician [facility] Start: 12-10-2021 End: 12-10-2021 Patient encounter procedure No Primary Care Physician [facility] Start: 12-07-2021 End: 12-07-2021 Patient encounter procedure No [facility] [place] [facility] Start: 11-27-2021 Non-patient / Non-visit No Primary Care Physician [facility] Start: 11-26-2021 End: 11-26-2021 Patient encounter procedure No Primary Care Physician [facility] Start: 11-14-2021 End: 11-14-2021 Patient encounter procedure No Primary Care Physician [facility] Start: 11-06-2021 End: 11-06-2021 Patient encounter procedure No Primary Care Physician [facility] Start: 09-17-2021 End: 09-17-2021 Patient encounter procedure No Primary Care Physician [facility] Start: 09-07-2021 End: 09-07-2021 Patient encounter procedure No [facility] [place] [facility] Start: 08-22-2021 End: 08-22-2021 Patient encounter procedure No [facility] [place] [facility] Start: 08-20-2021 End: 08-20-2021 Emergency department patient visit No Primary Care Physician [facility] Procedures Date Procedure Procedure Detail [...] specimen Performed By: #### L [id number] #### Hydraulic Dredge Operator: RADHA VASQUEZ ([id number]) [facility] ([facility]) [address] [place] [address] Start: 01-27-2025 ABO and Rh group [Ty [...] surf ant ibody hbsab Margaret M Duglase [employer] Work Phone: Start: 06-17-2023 Laparoscopy No Primary [...] 2) Zoste r Vaccines (1 of 2) [facility] Start: 01-19-2032 DTaP/Tdap/Td Vaccine s (8 - Td or Tdap) DTaP/Tdap/Td Vaccines (8 - Td or Tdap) [facility] Start: 01-27-2026 Depression Screening Depression Scre ening [facility] Start: 03-21-2025 Influenza vaccination Influenza Vacc ine (#1) [facility] Start: 03-21-2025 RSV Immunization for Adults (1 - Risk 1-dose series) RSV Immunization for Adults (1 - Risk 1-dose series) [facility] Start: 10-25-2024 End: 10-25-2024 Professional / ancillary services management 10/25/2024 2:45 PM EDT Ancillary Procedure Visit [facility] [address] [place] [address] US FU 4 weeks [facility] Comment on above: US FU 4 weeks Start: 03-21-2024 COVID-19 (2 5 season) COVID-19 ( season) [facility] Start: 03-21-2024 COVID-19 Vaccine ( season) COVID-19 Vaccine ( season) [facility] Start: 03-21-2024 FLU (#1) FLU (#1) [facility] Start: 06-17-2023 Patient discharge [facility] Start: 06-17-2023 Ambulation without limitation [facility] Start: 06-17-2023 Medical regimen orde rs management [facility] Start: 06-17-2023 Medication education [facility] Start: 06-17-2023 Procedure discontinued [facility] Start: 06-17-2023 Taking patient vital signs [facility] Start: 06-17-2023 Vital signs measurements [facility] Start: 06-17-2023 [facility] Start: 03-21-2023 COVID-19 (2022-08 season) COVID-19 (2022- season) [facility] Start: 02-26-2022 [facility] Work Phone: Start: 02-26-2022 Application of abdom inal corset [facility] Work Phone: Start: 02-26-2022 Patient discharge [facility] Work Phone: Start: 02-26-2022 Lupus anticoagulant assay [facility] Work Phone: Start: 02-26-2022 [facility] Work Phone: Start: 02-25-2022 End: 02-26-2022 [facility] Work Phone: Start: 02-25-2022 Administration of medication [facility] Work Phone: Start: 02-25-2022 Ambulation therapy management [facility] Work Phone: Start: 02-25-2022 Application of device [facility] Work Phone: Start: 02-25-2022 Application of inter mittent pneumatic compression device [facility] Work Phone: Start: 02-25-2022 Assessment of risk o f venous thromboembolism [facility] Work Phone: Start: 02-25-2022 Catheterization of vein [facility] Work Phone: Start: 02-25-2022 Deep breathing and c oughing exercises [facility] Work Phone: Start: 02-25-2022 Exercises [facility] Work Phone: Start: 02-25-2022 Incentive spirometry [facility] Work Phone: Start: 02-25-2022 Measuring intake and output [facility] Work Phone: Start: 02-25-2022 Notification of physician [facility] Work Phone: Start: 02-25-2022 Procedure discontinued [facility] Work Phone: Start: 02-25-2022 Provision of activit y privileges [facility] Work Phone: Start: 02-25-2022 Vital signs measurements [facility] Work Phone: Start: 02-25-2022 Wound care [facility] Work Phone: Start: 02-25-2022 Application of abdom inal corset [facility] Work Phone: Start: 02-25-2022 Admission procedure [facility] Work Phone: Start: 02-25-2022 Consultation [facility] Work Phone: Start: 02-25-2022 Streptococcus agalac tiae [Presence] in Unspecified specimen by Organism specific culture [facility] Work Phone: Start: 2021 Screening for malign ant neoplasm of cervix [facility] Start: 02-17-2012 Microscopic observat ion [Identifier] in Cervix by Cyto stain Pap Smear [facility] Start: 02-17-2012 Screening for malign ant neoplasm of cervix Pap Smear [facility] Start: 2010 Hepatitis B (1 of 3 - 19+ 3-dose series) Hepatitis B (1 of 3 - 19+ 3-dose series) [facility] Start: 2009 Hepatitis C screening Hepatitis C Sc reening [facility] Start: 2007 MenB (1 of 2 - MenB 2-Dose Series Bexsero) MenB (1 of 2 - MenB 2-Dose Series Bexsero) [facility] Start: 02-17-2004 Varicella (1 of 2 - 13+ 2-dose series) Varicella (1 of 2 - 13+ 2-dose series) [facility] Start: 02-17-2004 Varicella vaccination Varicell a Vaccines (1 of 2 - 13+ 2-dose series) [facility] Start: 1998 Tetanus Diphtheria a nd Pertussis Vaccines (1 - Tdap) Tetanus Diphtheria and Pertussis Vaccines (1 - Tdap) [facility] Start: 02-17-1992 MMR (1 of 1 - Standa rd series) MMR (1 of 1 - Standard series) [facility] Start: 1991 HIV screening HIV Screening [facility] End: 01-27-2025 Bacteria identified in Urine by Culture [facility] Comment on above: STAT (Lab) for 1 Occ urrences starting 01/27/2025 until 01/27/2025 Once for 1 Occurrenc es starting 01/27/2025 until 01/27/2025 Bacteria identified in Urine by Culture Urine culture Microbiology STAT 01/27/2025 3:02 AM EDT [facility] Beta 2 glycoprotein 1 IgA Ab [Presence] in Serum [facility] Work Phone: Beta 2 glycoprotein 1 IgG Ab [Presence] in Serum [facility] Work Phone: Beta 2 glycoprotein 1 IgM Ab [Presence] in Serum [facility] Work Phone: Beta-hemolytic Strep tococcus culture [facility] Work Phone: Cardiolipin IgA Ab [Units/volume] in Serum by Immunoassay [facility] Work Phone: Cardiolipin IgG Ab [Units/volume] in Serum or Plasma [facility] Work Phone: Cardiolipin IgM Ab [Units/volume] in Serum or Plasma [facility] Work Phone: Choriogonadotropin ( test) [Presence] in Serum or Plasma [facility] Cytomegalovirus IgG antibody measurement [facility] Work Phone: Cytomegalovirus IgM antibody assay [facility] Work Phone: Group B Streptococcu s Culture Group B Streptococcus Culture [facility] Work Phone: Lupus anticoagulant neutralization platelet [Time] in Platelet poor plasma by Coagulation assay [facility] Work Phone: End: 10-05-2024 Miscellaneous Sendout: [facility] Work Phone: Comment on above: 1 Occurrences starti ng 10/05/2024 until 10/05/2024 Partial thromboplast in time ratio [facility] Work Phone: Parvovirus B19 IgG A b [Units/volume] in Serum by Immunoassay [facility] Work Phone: Parvovirus B19 IgM A b [Units/volume] in Serum by Immunoassay [facility] Work Phone: Patient Education Urinary Tract Infections in Women ED Hyperemesis Gravidarum [facility] Work Phone: Patient referral [facility] Work Phone: Streptococcus agalac tiae [Presence] in Unspecified specimen by Organism specific culture [facility] Work Phone: End: 01-27-2025 Streptococcus agalactiae DNA [Presence] in Unspecified specimen by MAE with probe detection Group B Strep Screen PCR Microbiology STAT STAT (Lab) for 1 Occurrences starting 01/27/2025 until 01/27/2025 [facility] Work Phone: Comment on above: STAT (Lab) for 1 Occ urrences starting 01/27/2025 until 01/27/2025 Streptococcus agalac tiae DNA [Presence] in Unspecified specimen by MAE with probe detection Group B Strep Screen PCR Microbiology STAT 01/27/2025 2:10 AM EDT [facility] Dianxin Thrombin time [facility] Work Phone: Toxoplasma gondii Ig G Ab [Units/volume] in Serum [facility] Work Phone: Toxoplasma gondii Ig M Ab [Units/volume] in Serum [facility] Work Phone: End: 01-27-2025 Urine Hold Cup Urine Hold Cup Lab Timed Once for 1 Occurrences starting 01/27/2025 until 01/27/2025 [facility] Comment on above: Once for 1 Occurrenc es starting 01/27/2025 until 01/27/2025 US Thyroid gland [facility] Work Phone: Immunizations Immunization Date Immunization Notes Care Provider Fa cili 05-14-2024 influenza virus vaccine, unspecified formulation Alejandra Tena DO Work Phone: [facility] 05-13-2023 influenza, injectabl e, quadrivalent, preservative free No Primary Care Physician [facility] 06-20-2022 influenza, injectabl e, quadrivalent, preservative free No Primary Care Physician [facility] 06-20-2022 influenza, seasonal, injectable No Primary Care Physician [facility] 01-18-2022 tetanus toxoid, redu itzel diphtheria toxoid, and acellular pertussis vaccine, adsorbed No Primary Care Physician [facility] 04-25-2021 influenza, injectabl e, quadrivalent, preservative free No Primary Care Physician [facility] 04-25-2021 influenza, seasonal, injectable No Primary Care Physician [facility] 04-05-2021 Covid (Moderna) No Primary C are Physician [facility] 03-08-2021 Covid (Moderna) No Primary C are Physician [facility] 04-18-2020 influenza, injectabl e, quadrivalent, preservative free No Primary Care Physician [facility] 04-18-2020 influenza, seasonal, injectable No Primary Care Physician [facility] 06-16-2019 influenza, injectabl e, quadrivalent, preservative free No Primary Care Physician [facility] 06-16-2019 influenza, seasonal, injectable No Primary Care Physician [facility] 04-17-2018 influenza, injectabl e, quadrivalent, preservative free No Primary Care Physician [facility] 04-17-2018 influenza, seasonal, injectable No Primary Care Physician [facility] 05-14-2017 influenza, injectabl e, quadrivalent, preservative free No Primary Care Physician [facility] 05-14-2017 influenza, seasonal, injectable No Primary Care Physician [facility] 05-08-2016 influenza, injectabl e, quadrivalent, preservative free No Primary Care Physician [facility] 05-08-2016 influenza, seasonal, injectable No Primary Care Physician [facility] 06-01-2015 influenza, injectabl e, quadrivalent, preservative free No Primary Care Physician [facility] 06-01-2015 influenza, seasonal, injectable No Primary Care Physician [facility] 10-03-2014 tetanus toxoid, redu itzel diphtheria toxoid, and acellular pertussis vaccine, adsorbed No Primary Care Physician [facility] 09-21-2014 influenza, injectabl e, quadrivalent, preservative free No Primary Care Physician [facility] 09-21-2014 influenza, seasonal, injectable No Primary Care Physician [facility] 05-24-2005 hepatitis B vaccine, pediatric or pediatric/adolescent dosage No Primary Care Physician [facility] Payers Date Payer Category Payer Medicaid HMO [employer] [id number] 2024 Commercial Managed C [facility] [employer] [id number] 2024 Unknown [id number] 2024 Medicaid [id number] 2024 Unknown [id number] 2024 Unknown [id number]. 1.13.234.2. [id number] 2023 Self-pay [id number] 1991 Unknown [id number] 2.16.840.1.728138.3.579.2 1991 Unknown [id number] 2.16.840.1.220999.3.579.2 1991 Unknown [id number] 2.16.840.1.108205.3.579.2 1991 Unknown [id number] 2.16.840.1.042594.3.579.2 1991 Unknown [id number] 2.16.840.1.504293.3.579. 1991 Unknown [id number] 2.16.840.1.374613.3.579.2 1991 Unknown [id number] 2.16.840.1.650179.3.579.2 1991 Unknown [id number] 2.16.840.1.843836.3.579.2 1991 Unknown [id number] 2.16.840.1.828697.3.579.2 1991 Unknown [id number] 2.16.840.1.528102.3.579.2 1991 Unknown [id number] 2.16840.1.884699.3.579.2 1991 Unknown [id number] 2.16.840.1.092645.3.579.2 47 Private Health Insurance A00 [id number] Unknown [id number] Unknown [id number] Unknown [id number] Unknown [id number] 2.16.840.1.994029.3.579.2. 462 Unknown [id number] 2.16.840.1.771522.3.579.2. 462 Unknown [id number] 2.16.840.1.107855.3.579.2. 462 Unknown [id number] 2.16.840.1.264448.3.579.2. 462 Unknown [id number] 2.16.840.1.814021.3.579.2. 462 Unknown [id number] 2.16.840.1.181323.3.579.2. 462 Unknown [id number] 2.16.840.1.232881.3.579.2. 462 Unknown [id number] 2.16.840.1.320179.3.579.2. 462 Unknown [id number] 2.840.1.519670.3.579.2. 462 Unknown [id number] 2.16.840.1.580207.3.579.2. 462 Unknown [id number] 2.16.840.1.180441.3.579.2. 462 Unknown [id number] 2.16.840.1.297207.3.579.2. 462 Unknown [id number] 2.16.840.1.859625.3.579.2. 462 Unknown [id number] 2.16.840.1.170367.3.579.2. 462 Unknown [id number] 2.16.840.1.003739.3.579.2. 462 Unknown [id number] 2.16.840.1.532040.3.579.2. 462 Unknown [id number] 2.16.840.1.326627.3.579.2. 462 Unknown [id number] 2.16.840.1.976867.3.579.2. 462 Unknown [id number] 2.16.840.1.604655.3.579.2. 462 Unknown [id number] 2.16.840.1.940324.3.579.2. 462 Unknown [id number] 2.16.840.1.389737.3.579.2. 462 Unknown [id number] 2.16.840.1.972348.3.579.2. 462 Unknown [id number] 2.16.840.1.895035.3.579.2. 462 Unknown [id number] 2.16.840.1.710174.3.579.2. 462 Unknown [id number] 2.16.840.1.033189.3.579.2. 462 Unknown [id number] 2.16.840.1.126308.3.579.2. 462 Unknown [id number] 2.16840.1.662834.3.579.2. 462 Unknown [id number] 2.16.840.1.790924.3.579.2. 462 Unknown [id number] 2.16.840.1.444708.3.579.2. 462 Unknown [id number] 2.16.840.1.710835.3.579.2. 462 Unknown [id number] 2.16.840.1.452960.3.579.2. 462 Unknown [id number] 2.16840.1.562026.3.579.2. 462 Unknown [id number] 2.16.840.1.224010.3.579.2. 462 Unknown [id number] 2.16.840.1.513423.3.579.2. 462 Unknown [id number] 2.16.840.1.567947.3.579.2. 462 Unknown [id number] 2.16.840.1.318113.3.579.2. 462 Unknown [id number] 2.16.840.1.775544.3.579.2. 462 Unknown [id number] 2.16.840.1.656577.3.579.2. 462 Unknown [id number] 2.16.840.1.985610.3.579.2. 462 Unknown [id number] 2.16.840.1.280055.3.579.2. 462 Unknown [id number] 2.16.840.1.653954.3.579.2. 462 Unknown [id number] 2.16.840.1.952914.3.579.2. 462 Unknown [id number] 2.16.840.1.606230.3.579.2. 462 Unknown [id number] 2.16.840.1.610395.3.579.2. 462 Unknown [id number] 2.16.840.1.836114.3.579.2. 462 Unknown [id number] 2.840.1.105286.3.579.2. 462 Social History Date Type Detail Facility [facility] Work Phone: Start: 12-10-2021 End: 05-26-2023 Tobacco smoking status TXIS Unknown if ever smoked [facility] Start: 12-05-2019 None [facility] Start: 12-11-2020 Non-smoker [facility] Start: 1990 Sex Assigned At Female W [facility] Start: 05-08-2022 End: 01-27-2025 Tobacco smoking status NHIS Never smoked tobacco [facility] Start: 05-08-2022 End: 01-27-2025 Tobacco use and exposure Smokeless tobacco non-user [facility] Start: 05-08-2022 End: 09-27-2024 Alcoholic beverage intake Lifetime non-drinker (finding) [facility] Start: 05-08-2022 End: 01-27-2025 History of Social function [facility] Start: 05-08-2022 End: 01-27-2025 Tobacco use panel [facility] Start: 1990 Sex assigned at Not on file [facility] Start: 07-25-[address] [facility] Start: 01-27-2025 Alcoholic beverage intake Ex-d john (finding) [employer] Has the electric, [employer] s, oil, or water company threatened to shut off services in your home in past 12Mo No [employer] (I/We) worried wheth er (my/our) food would run out before (I/we) got money to buy more. Never true [employer] In the past 12 month s, has lack of transportation kept you from medical appointments or from getting medications? No [employer] Start: 08-08-2024 Sex Female (finding) [facility] NEGATED: Highlighted row [facility] NEGATED: Highlighted rowStart: NINF History of tobacco use Passive smoker [facility] Goals Date Patient Goal Desired Activity /State Functional Status Date Assessment Result Facility 01-27-2025 Patient Health Quest ionnaire 2 item (PHQ-2) [Reported] [facility] 02-25-2022 Functional status Activity Abili ty Post Op [facility] Work Phone: [facility] Mental Status Date Assessment Result Facility 06-17-2023 Cognitive function Level Of Cons ciousness Awake;Drowsy [facility] Work Phone: 06-17-2023 Cognitive function Patient Orien tation Person;Place;Time [facility] Work Phone: Clinical Notes 07-24-2021 to [...] to go home., papers signed, ambulatory home [facility] 01-27-2025 Nurse Note 1300 iron infusion complete, per DR. Stringer, may be discharged to home ., iv heplock removed, clean dry and intact., discharge papers given, no acute distress this afternoon, blood sugars trending normal and pt is asymptomatic at present time, feels reassured to go home., papers signed, ambulatory home documented in this encounter [facility] 01-27-2025 Note Department of Obstet rics and Gynecology [facility] Discharge Summary Admission on 01/26/2025 11:19 PM Yessi Anne is a 34 y.o. at 28w4d who presented to Labor and Delivery for symptomatic hypoglycemia. She had been trending BGTs in place of a 1hr GTT and her Dexcom was frequently reading less than 55. She was transported from an outside hospital to [facility] with normal blood sugar readings from fingersticks however was feeling symptomatic. Her blood sugars while admitted to [facility] were within normal limit. An EKG [...] Surgery, Anxiety Follow up appointment with your doctor/wood cutter - Keep next scheduled appointment Activity - Normal Activity Call your doctor/wood cutter if you have: - leaking fluid - vaginal bleeding - regular contractions: More than 6 contractions in one hour - decreased movement - worsening abdominal (belly) pain - headache, blurry vision, increased swelling, upper abdominal pain Cherry Pham MD 01/27/2025 12:49 PM [facility] 01-27-2025 Hospital course Narrative Images from the original note were not included. Department of Obstetrics and Gynecology [facility] Discharge Summary Admission on 01/26/2025 11:19 PM Yessi Anne is a 34 y.o. at 28w4d who presented to Labor and Delivery for symptomatic hypoglycemia. She had been trending BGTs in place of a 1hr GTT and her Dexcom was frequently reading less than 55. She was transported from an outside hospital to [facility] with normal blood sugar readings from fingersticks however was feeling symptomatic. Her blood sugars while admitted to [facility] were within normal limit. An EKG [...] Surgery, Anxiety Follow up appointment with your doctor/wood cutter - Keep next scheduled appointment Activity - Normal Activity Call your doctor/wood cutter if you have: - leaking fluid - vaginal bleeding - regular contractions: More than 6 contractions in one hour - decreased movement - worsening abdominal (belly) pain - headache, blurry vision, increased swelling, upper abdominal pain Cherry Pham MD 01/27/2025 12:49 PM Cosigned by Josemanuel Stringer MD at 01/27/2025 2:20 PM EDT documented in this encounter [facility] 01-27-2025 Hospital Discharg e instructions Cherry Pham MD - 01/27/2025 12:48 PM EDT Follow up appointment with your doctor/wood cutter - Keep next scheduled appointment Activity - Normal Activity Call your doctor/wood cutter if you have: - leaking fluid - [...] visit on 01/27/25 . Cherry Pham MD [facility] documented in this encounter [facility] 01-27-2025 Note Formatting of this n ote might be different from the original. Date: 01/27/2025 Name: Yessi Anne : 1990 [facility] Patient Information Primary Caregiver: Self Accompanied by/Relationship: S/O;Family Marital Status: Support System: SO/Family Mandaeism/Cultural Factors: None Activities of Daily Living Communication: [...] Developmental Delay: N/A Children's Services: N/A T [facility] 01-27-2025 Note Formatting of this n ote might be different from the original. Date: 01/27/2025 Name: Yessi Anne : 1990 [facility] Information [place] Patient Information Primary Caregiver: Self Accompanied by/Relationship: S/O;Family Marital Status: Support System: SO/Family Mandaeism/Cultural Factors: None Activities of Daily Living Communication: [...] N/A Developmental Delay: N/A Children's Services: N/A [facility] 01-27-2025 Miscellaneous Notes Formattin g of this note might be different from the original. Date: 01/27/2025 Name: Yessi Anne : 1990 [facility] Patient Information Primary Caregiver: Self Accompanied by/Relationship: S/O;Family Marital Status: Support System: SO/Family Mandaeism/Cultural Factors: None Activities of Daily Living Communication: [...] Children's Services: N/A documented in this encounter [facility] 01-27-2025 History of Presen t illness Narrative Images from the original note were not included. Department of Obstetrics and Gynecology Labor and Delivery Triage Note CHIEF CONCERN: Hypo-glycemia HISTORY OF PRESENT ILLNESS: Presents as a transfer from [facility] for symptomatic hypoglycemia. Blood sugar here [...] Alejandra Tena DO documented in this encounter [facility] 01-27-2025 History and physical note Department of [...] in the EMS. 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 As a result, errors may occur. When identified, these errors have been corrected. While every attempt is made to correct errors during dictation, errors may still exist. [facility] 01-27-2025 Note Attestation signed by Josemanuel Stringer [...] Maternal- Medicine This documentation was prepared using [employer] voice recognition software. As a result, errors [...] in the EMS. On her admission to [facility], her sugar was 113 while her Dexcom [...] shortness of br (more content not included)... [facility] 01-27-2025 History and physical note Department [...] in the EMS. 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 As a result, errors may occur. When identified, these errors have been corrected. While every attempt is made to correct errors during dictation, errors may still exist. documented in this encounter [facility] 11-30-2024 Note [facility] CONSULTATION Referring Provider Saritha Salgado MD [address] [address] ASSESSMENT AND RECOMMENDATIONS Patient comes today for a follow-up consultation regarding her history of 37-week demise with pulmonary hemorrhage. Patient today is without complaints. Today, we took the time to extensively review her obstetrical records together while she was in the office. Patient reports that in the concerning , she presented to [facility]. She underwent a period of monitoring [...] than capable care provided by her primary technical services manager. Romy OVERTONA FACOG Maternal- Medicine SUBJECTIVE Yessi [...] Gen [place] Comments: Stat LTCS, transported to [facility] NICU with anemia and passed of pulmonary [...] Blood Pressure Paternal (more content not included)... [facility] 06-17-2023 Discharge summary Note Date/Time June 17, 2023 3:56pm [facility] Medical Records Department [address] [place] [address] Instructions for Home/Discharge Instructions 06/17/23 1556 MR#: [id number] Acct: [id number] Name: YESSI ANNE Rep #:[id number] : 1990 33 From: Analia Mcgregor DO PCP: Care Physician,No Primary Status :[facility] Discharge Instructions Diet Discharge Diet: No restrictions [...] CC: No Primary Care Physician ~ Signed [facility] Work Phone: 1(866) 920-483111-28-2023 Procedure [facility] 06-17-2023 History and physical note Author Analia Kimbrough [facility] June 17, 2023 2:13pm Note Date/Time June 17, 2023 2:13pm [facility] Medical Records Department [address] [place] [id number] History & Physical Exam 06/17/23 1413 MR#: [id number] Acct: [id number] Name: YESSI ANNE Rep #:[id number] : 1990 33 From: Analia Mcgregor DO PCP: Tennille Physician,No Primary [place] Location: [place] [address] History and Physical Date of Admission: 06/17/23 Intake Vital Signs 04/17/2311:46 05/26/2313:40 Height 5 ft 1 in 5 ft 1 in Weight: 157 lb 2 oz BMI 29.7 BP 120/82 H Intake Visit Reasons: right side pain/US room Infant Childcare Provider Required: No Is patient in pain?: No [...] house current occupational status: employed current occupation: [employer] pets and animals: Yes Smoking Status: Never [...] term 6lbs 1oz Female 12 hours epidural [facility] Dr. Erendira Velasco 02/25/22 Miguel Angel 37 live - full term C- section Male [facility] Hal Delivery Date: 12/05/19 Last Updated by: Valerie Escoto Gestational diabetes, small for gestational age Delivery Date: 02/25/22 Last Updated by: Jaclyn Freire decl LTCS STAT. baby transported to [facility] with anemia and passed @ 1812 of [...] Mcgregor DO; No Primary Care Physician~ Signed [facility] Work Phone: 1(931) 585-382305-10-2022 NoteHemoglobin EvaluationMay 2021 10:22am10.3 [facility] Phone: 1(449) 264-477305-10-2022 NoteHemoglobin EvaluationMay 2021 10:22am10.3 [facility] Work Phone: 1(835) 246-443805-10-2022 NoteHemoglobin EvaluationMay 2021 10:22am10.3 [facility] Work Phone: 1(437) 515-966101-05-2022 NoteHNO ID: [id number] Author: Heraclio Wilcox MA Service: ? Author Type: Customer Service Representative Teacher Type: Progress Notes Filed: 07/25/2021 3:00 PM [...] Heraclio Wilcox MA July 25, 2021 2:56 [facility]01-04-2022 NotePatient Outreach (NETNAV) YESSI ANNE ([id number]) 1990 F Date Time Provider Department 07/24/21 [...] dizziness Date Reviewed: 05/07/2018 Reviewed by: Kate ([facility]) HILARIA Lincoln - Fully Assessed Reason [...] Status:Closed by HERACLIO WILCOX on 07/25/21[facility] complaint+Reason for visit Narrative* Chief Complaint med check RIGHT SHOULDER PAIN Neck pain Back pain COVID-19 Vertigo E-ORDER Reason for Visit depressio n Right shoulder strain Spasm of thoracic back muscle Back pain Segmental and somatic dysfunction of cervical region Segmental and somatic dysfunction of thoracic region Back pain Segmental and somatic dysfunction of thoracic region Vertigo [facility] Work Phone: Evaluation note* Diagnosis Onset [...] and somatic dysfunction of thoracic region acute [facility] Work Phone: Evaluation note* Diagnosis Onset [...] thoracic region acute Supervision of normal acute [facility] Work Phone: Evaluation note* Diagnosis Onset [...] virus r esolved History of gestational diabe pavrin in prior , currently resolved resolved Supervision [...] currently resolved resolved Supervision of normal resolved [facility] Work Phone: Evaluation note* Diagnosis Onset [...] thoracic region acute care and examination acute [facility] Work Phone: Evaluation note* Diagnosis Onset [...] thoracic region acute care and examination acute [facility] Work Phone: Evaluation note* Diagnosis Onset [...] and examination acute Left thyroid nodule acute [facility] Work Phone: Evaluation note* Diagnosis Onset [...] and examination acute Left thyroid nodule acute [facility] Work Phone: Evaluation note* Diagnosis Onset Date Resolution Status depression acute Right shoulder strain acute Spasm of thoracic back muscle acute Back pain acute Segmental and somatic dysfunction of cervical region acute Segmental and somatic dysfunction of thoracic region acute Back pain acute Segmental and somatic dysfunction of thoracic region acute Vertigo noneactive [facility] Work Phone: Evaluation note* Diagnosis Onset Date Resolution Status Vertigo noneactive Back pain acute Segmental and somatic dysfunction of cervical region acute Segmental and somatic dysfunction of lumbar region acute Segmental and somatic dysfunction of thoracic region acute [facility] Work Phone: Evaluation note* Diagnosis Onset Date Resolution Status Vertigo noneactive Back pain acute Segmental and somatic dysfunction of cervical region acute Segmental and somatic dysfunction of lumbar region acute Segmental and somatic dysfunction of thoracic region acute Ectopic acute [facility] Work Phone: Evaluation note* Diagnosis Onset [...] and somatic dysfunction of thoracic region acute [facility] Work Phone: evaluation note* Diagnosis Onset [...] and somatic dysfunction of thoracic region acute [facility] Work Phone: Evaluation note* Diagnosis Onset [...] and somatic dysfunction of thoracic region acute [facility] Work Phone: evaluation note* Diagnosis Onset [...] and somatic dysfunction of thoracic region acute [facility] Work Phone: Evaluation note* Diagnosis Onset [...] acute Encounter for routine gynecological examination noneactive [facility] Work Phone: Evaluation note* Diagnosis Onset [...] of thoracic region acute Pelvic pain acute [facility] Work Phone: Evaluation note* Diagnosis History of [facility] Hypoglycemia- Primary Hypoglycemia, unspecified documented in this encounter [facility] Health Summary Purpose Family History No Family [...] Will No August 20 5:47pm Power of Fabrication Technician No August 20, 2021 5:47pm Advance Directive Response Recorded Date/ Time Living Will No February 04, 2022 10:16am Power of Fabrication Technician No February 04 10:16am Advance Directive Response Recorded Date/ Time Living Will No February 25, 2022 2:16pm Power of Fabrication Technician No February 25 2:16pm Advance Directive Response Recorded Date/ Time Living Will No May 03 3:45pm Power of Fabrication Technician No May 03, 2022 3:45pm Advance Directive Response Recorded Date/ Time Living Will No May 03 2:45pm Power of Fabrication Technician No May 03, 2022 2:45pm Date Activated [...] EMPLOYEE OB xfer of care from [facility], approx 31 wks GROWTH [...] EMPLOYEE OB xfer of care from [facility] OBGYN, approx 31 wks GROWTH [...] Back pain INT LABS INT LABS Annual (SHUTTLE CAR OPERATOR) Reason for Visit Ectopic Back pain Segmental [...] Back pain INT LABS INT LABS Annual (SHUTTLE CAR OPERATOR) LEFT THYROID NODULE Reason for Visit Ectopic [...] Back pain INT LABS INT LABS Annual (SHUTTLE CAR OPERATOR) LEFT THYROID NODULE right side pain/US room [...] section and content) DATE CREATED AUTHOR 10/08/2021 [facility] DATE CREATED AUTHOR AUTHOR'S ORGANIZ ATION 01/31/2025 [facility] DATE CREATED AUTHOR AUTHOR'S ORGANIZ ATION 03/02/2025 [facility] DATE CREATED AUTHOR AUTHOR'S ORGANIZ ATION 03/04/2025 [facility] Care Teams (unrecognized sec tion and content) [...] Physician Primary Care Provider Active [address] STEEL WORKER, STEEL WORKER-C Attending Provider, Referring Provider Active Team Status: Inactive Member Role Status Dates No Primary Care Physician Primary Care Provider Active [address] STEEL WORKER, STEEL WORKER-C Attending Provider, Referring Provider Active Team Status: [...] Active Health Risk Assessment Attending Provider Active Installer 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 Specialty Start Date End Date No Primary [place] [address] PCP - General Pediatrics 01/23/22 Macarena oBurne MD Spa Director/Finance Obstetrics Gynecology 08[facility]13/[facility] [place] [address] Genetic Counselor Genetics 07/04/22 Installer Metal 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 Specialty Start Date End Date No Primary [place] [address] PCP - General Pediatrics 01/23/22 Macarena Bourne MD Spa Director/Finance Obstetrics Gynecology 08/13/19 [facility] [place] [address] Genetic Counselor Genetics 07/04/22 Reason for Visit (unrecogniz ed section and content) Reason Comments Hypoglycemia Patient transfer [facility] arely rodriguez for low blood sugars. Specialty Diagnoses / Procedures Referred By Marichuy pace Referred To Contact Diagnoses Hypoglycemia Procedures . Alejandra Tena, DO [address] [address] Phone: tel: fax: [facility] [address] [place] [address] Phone: tel: Referral ID Status Reason Start Date Expiration Date Visits Re quested Visits Authorized [id number] 1 1 Scheduled Active and Recently Administ [...] BE BASED ON THE PRIMARY CLINICAL RECORDS. [facility] [employer] [facility]. provides no warranty or guarantee of the accuracy or completeness of information in this document.
--- OUTSIDE RECORDS SUMMARY | 2025-03-06 11:45 | XMS RPT_ITS | CCD ---
Author Organization [facility] Care Team Providers Care Edge Brusher Name Role Phone Care Physician, No Primary Primary Care Provider Unavailable Care Physician, No Primary Referring Provider Un available Dossi, Dr. Bro Attending Provider [phone] Care Physician, No Primary Primary Care Provider Unavailable Care Physician, No Primary Referring Provider Un available Dossi, Dr. Bro Attending Provider [phone] Care Physician, No Primary Attending Provider Un available SAMIA Ward Attending Provider [phone] RAJAN Witt Attending Provider [phone] Dr. Analia Mcgregor Attending Provider [phone] Dr. Saritha Salgado Attending Provider [phone] Dr. Saritha Salgado Admit Provider Dr. Saritha [...] available Dr. Analia Mcgregor Attending Provider [phone] Dr. Reginaldo Saravia Attending Provider Care Physician, [...] Erendira Holloway MD, Summer T Unavailable No ore smelter, Md Primary Care Provider Gemini v[facility], Whitney Unavailable [phone] Erendira Holloway MD, Summer T Unavailable Motter [facility], Whitney Unavailable Unavailable Primary Care Provider UnavailALEJANDRA [...] ANALIA ZAIDI Referring Unavailab le [facility], [facility] Primary Care Unavailable JAYSON BATES Attending Unavailable ANALIA ZAIDI Referring Unavailab PAM Everett Attending Unavailable DOC, [facility] Primary Care Unavailable DOC, [facility] Primary Care Unavailable SARITHA [...] No Primary Primary Care Unava ilable Armand Veldimaond, Analia Attending Unavailabl e Care Physician, No [...] [DOXYCYCLINE] Drug Allergy 2 Rash, Nausea Only [facility] (3 sources) Minocycline; Translations: [MINOCYCLINE] Drug Allergy 6 Nausea Only [facility] (3 sources) Ondansetron; Translations: [ONDANSETRON] Drug Allergy 2 Other (See Comments), GI Intolerance [facility] (1 source) Doxycycline Drug Allergy 5 [facility] Repository Medications Current Medications Medication Drug [...] hour 125 mL/hr, IntraVENous, Continuous, Starting on [facility] 01/27/25 at 0515 Start: 01-27-2025 End: 01-27-2025 1,000 mL, IntraVENous, at 50 0 mL/hr, Administer over 2 Hours, Once, On [facility] 01/27/25 at 0030, For 1 dose cephalexin [...] 03-04-2025 OB Biophysical Prof W/O NST Normal [facility] OB Triage Progress Noteon OB Triage Progress Note Normal [facility] [employer] Office Visit Reporton 03-04-2025 [employer] Office Visit Report Normal [facility] OB Biophysical Prof W/O NSTo n 02-22-2025 OB Biophysical Prof W/O NST Normal [facility] OB Triage Physician Noteon 0 02-22-2025 OB Triage Physician Note Normal [facility] [employer] Office Visit Reporton 02-22-2025 [employer] Office Visit Report Normal [facility] [employer] Office Visit Reporton 02-18-2025 [employer] Office Visit Report Normal [facility] Progress Noteon 02-17-2025 Appeals Analyst Authentication Interface Message Text [facility] Co-Management Visit Yessi Anne is being [...] -40 minutes chart review and documentation Normal [facility] Free T3on 02-07-2025 Free T3 [Mass/Vol] 2.2 pg/mL Normal 2.18-3.98 [facility] Comment on above: Performed By: #### L 506.0400, L501.89780, [id number] ####[facility] [address] [place], [address] [employer] Office Visit Reporton 02-07-2025 [employer] Office Visit Report Normal [facility] T4 Free Directon 02-07-2025 T4 FREE DIRECT 1.00 ng/dL Normal 0.76-1.46 [facility] Comment on above: Performed By: #### L 506.0400, L501.16586, L501.9520 ####[facility] [address] [place], [address] Thyroid Stim Hormone (TSH)on 02-07-2025 TSH 1.360 uIU/mL Normal 0.300-4.200 [facility] Comment on above: Performed By: #### L 506.0400, L501.09652, L501.9520 ####[facility] [address] [place], [address] Progress Noteon 02-04-2025 Appeals Analyst Authentication Interface Message Text [facility] Co-Management Visit Yessi Anne is being [...] time spen (more content not included)... Normal [facility] [employer] Office Visit Reporton 02-01-2025 [employer] Office Visit Report Normal [facility] Venous Duplex US, Unilateral on 02-01-2025 Venous Duplex US, Unilateral Normal [facility] C-Peptideon 01-28-2025 C PEPTIDE 3.1 ng/mL Normal 1.1-4.4 [facility] Comment on above: Result Comment: C-Pe ptide reference interval is for fasting patients. Performed By: #### L 3100.7750, L3300.3500, L509.7001 ####[facility] [address] [place] [id number] Celiac Disease Profileon ENDOMYSIAL IGA Negative Normal Negative [facility] Comment on above: Performed By: #### L 3410.2400 ####[facility] [address] [facility] [address] IMMUNOGLOB A QN 161 mg/dL Normal 87-352 [facility] Comment on above: Result Comment: Perf ormed at: - [facility] [address] [id number] Director: Joseph Doe PhD, Phone: [phone] Performed By: #### L 3410.2400 ####[facility] [address] [place], [address] tTG IGA <2 Normal 0-3 [facility] Comment on above: Result Comment: Nega tive 0 - 3 Weak Positive 4 - 10 Positive >10 Tissue Transglutaminase (tTG) has been identified as the endomysial antigen. Studies have demonstr- ated that endomysial IgA antibodies have over 99% specificity for gluten sensitive enteropathy. Performed By: #### L 9820.2400 ####[facility] [address] [place], [place], [address] Insulin Levelon 01-28-2025 INSULIN,FASTING 24.6 uIU/mL Normal 2.6-24.9 [facility] Comment on above: Result Comment: Perf ormed at: - [facility] [address] [id number] Director: Joseph Doe PhD, Phone: [phone] Performed By: #### L 9353.1105, S0718.8461, D147.1640 ####[facility] [address] [place], [place], [address] [id number] 01-27-2025 [id number] Date: 01/27/2025 Name: Yessi Anne : 1990 [facility] Patient Information Primary Caregiver: Self Accompanied by/Relationship: S/O;Family Marital Status: Support System: SO/Family Jew/Cultural Factors: None Activities of Daily Living Communication: [...] place to sleep or slept in a fpc (including now)? No Transportation Needs Has the [...] Developmental Delay: N/A Children's Services: N/A Normal [facility] ABO and Rh group Confirm Nom (Bld)on 01-27-2025 ABO group Nom (Bld) A [facility] D Ag Ql (RBC) Positive [facility] BLOOD TYPE AND SCREEN GELon 01-27-2025 ABO GROUPING A Normal [facility] Comment on above: Order Comment: HOLD. Specimen is valid for 3 days - nurse to verify valid specimen Performed By: #### L [id number] #### Entry Engineer: RADHA VASQUEZ ([id number]) [facility] ([facility]) [address] [place] [address] RH TYPE IN BLOOD Positive Normal [facility] Comment on above: Order Comment: HOLD. Specimen is valid for 3 days - nurse to verify valid specimen Performed By: #### L [id number] #### Entry Engineer: RADHA VASQUEZ ([id number]) [facility] BLOOD [facility] ([facility]) [address] [place] [address] Bedside Glucoseon 01-27-2025 FINGERSTICK GLU 122 mg/dL High 74-106 [facility] Comment on above: Result Comment: ERIBERTO GIRALDO OF PATIENT CARE PER NURSING PROTOCOL Performed By: #### L 501.080 ####[facility] [address] [place], [place], [id number] Blood type and Crossmatch pa gemini (Bld)on 01-27-2025 ABO group Nom (Bld) A [facility] Blood group antibody screen GEL Ql Negative [facility] [employer] D Ag Ql (RBC) Positive [facility] CBC (HEMOGRAM)on 01-27-2025 Erythrocyte distribution width (RBC) [Ratio] 12.2 % Normal 11.5-15.0 [facility] Comment on above: Performed By: #### L [id number] #### Entry Engineer: RADHA VASQUEZ ([id number]) [facility]) [address] [place] [address] Hematocrit (Bld) [Volume fraction] 28.3 % Low 35.0-47.0 [facility] Comment on above: Performed By: #### L [id number] #### Entry Engineer: RADHA VASQUEZ ([id number]) [facility]) [address] [place] [address] Hemoglobin (Bld) [Mass/Vol] 9.5 g/dL Low 11.7-16.0 [facility] Comment on above: Performed By: #### L [id number] #### Entry Engineer: RADHA VASQUEZ ([id number]) [facility]) [address] [place] [address] MCH (RBC) [Entitic mass] 30.5 pg Normal 26.0-34.0 [facility] Comment on above: Performed By: #### L [id number] #### Entry Engineer: RADHA VASQUEZ ([id number]) [facility] ([facility]) [address] [place] [address] MCHC 33.6 % Normal 30.5-36.0 [facility] Comment on above: Performed By: #### L [id number] #### Entry Engineer: RADHA VASQUEZ ([id number]) [facility]) [address] [place] [address] MCV (RBC) [Entitic vol] 91.0 fL Normal 77.0-99.0 [facility] Comment on above: Performed By: #### L [id number] #### Entry Engineer: RADHA VASQUEZ ([id number]) [facility]) [address] [place] [address] Platelet mean volume (Bld) [Entitic vol] 11.3 fL Normal 9.0-12.7 [facility] Comment on above: Performed By: #### L [id number] #### Entry Engineer: RADHA VASQUEZ ([id number]) [facility]) [address] [place] [address] Platelets (Bld) [#/Vol] 261 10*3/uL Normal 140-440 [facility] Comment on above: Performed By: #### L [id number] #### Entry Engineer: RADHA VASQUEZ ([id number]) [facility]) [address] [place] [address] RBC (Bld) [#/Vol] 3.11 10*6/uL Low 3.80-5.20 [facility] Comment on above: Performed By: #### L [id number] #### Entry Engineer: RADHA VASQUEZ ([id number]) [facility]) [address] [place] [address] WBC (Bld) [#/Vol] 9.0 10*3/uL Normal 3.6-10.7 [facility] Comment on above: Performed By: #### L [id number] #### Entry Engineer: RADHA VASQUEZ ([id number]) [facility] ([facility]) [address] [place] [address] CBC panel Auto (Bld)on 01-27 Erythrocyte distribution width (RBC) [Ratio] 12.2 % 11.5 - 15.0 % [facility] Hematocrit (Bld) [Volume fraction] 28.3 % Low 35.0 - 47.0 % [facility] Hemoglobin (Bld) [Mass/Vol] 9.5 g/dL Low 11.7 - 16.0 g/dL [facility] Interpretation and review of laboratory results Abnormal [facility] MCH (RBC) [Entitic mass] 30.5 pg 26.0 - 34.0 pg [facility] MCHC (RBC) [Mass/Vol] 33.6 % 30.5 - 36.0 % [facility] MCV (RBC) [Entitic vol] 91 fL 77.0 - 99.0 fL [facility] Platelet mean volume (Bld) [Entitic vol] 11.3 fL 9.0 - 12.7 fL [facility] Platelets (Bld) [#/Vol] 261 10*3/uL 140 - 440 10*3/uL [facility] RBC (Bld) [#/Vol] 3.11 10*6/uL Low 3.80 - 5.2 0 10*6/uL [facility] WBC (Bld) [#/Vol] 9 10*3/uL 3.6 - 10.7 10*3/uL [facility] CHLAMYDIA/GONORRHEAon 2024 CHLAMYDIA/GONORRHEA NEISSERIA GONORRHOEA E DNA [...] should be collected if clinically indicated. Normal [facility] Comment on above: Performed By: #### L [id number], [id number] #### Entry Engineer: RAHDA VASQUEZ ([id number]) [facility]) [address] [place] [address] COMPREHENSIVE METABOLIC PANE Rico 01-27-2025 Albumin [Mass/Vol] 2.5 g/dL Low 3.5-5.0 [facility] Comment on above: Performed By: #### L [id number] #### Entry Engineer: RADHA VASQUEZ ([id number]) [facility]) [address] [place] [address] ALP [Catalytic activity/Vol] 75 U/L Normal 40-150 [facility] Comment on above: Performed By: #### L [id number] #### Entry Engineer: RADHA VASQUEZ ([id number]) [facility]) [address] [place] [address] ALT [Catalytic activity/Vol] 6 U/L Normal <30 [facility] Comment on above: Performed By: #### L [id number] #### Entry Engineer: RADHA [id number]) [facility]) [address] [place] [address] Anion gap [Moles/Vol] 6 mmol/L Normal 3-13 [facility] Comment on above: Performed By: #### L [id number] #### Entry Engineer: RADHA VASQUEZ ([id number]) [facility]) [address] [place] [address] AST [Catalytic activity/Vol] 18 U/L Normal <34 [facility] Comment on above: Performed By: #### L [id number] #### Entry Engineer: RADHA VASQUEZ ([id number]) [facility] ([facility]) [address] [place] [address] Bilirubin [Mass/Vol] 0.2 mg/dL Normal <1.2 [facility] Comment on above: Performed By: #### L [id number] #### Entry Engineer: RADHA VASQUEZ ([id number]) [facility] ([facility]) [address] [place] [address] Calcium [Mass/Vol] 8.5 mg/dL Normal 8.4-10.2 [facility] Comment on above: Performed By: #### L [id number] #### Entry Engineer: RADHA VASQUEZ ([id number]) [facility]) [address] [place] [address] Chloride [Moles/Vol] 106 mmol/L Normal 98-107 [facility] Comment on above: Performed By: #### L [id number] #### Entry Engineer: RADHA VASQUEZ ([id number]) [facility]) [address] [place] [address] [place] CO2 [Moles/Vol] 22 mmol/L Normal 22-29 [facility] Comment on above: Performed By: #### L [id number] #### Entry Engineer: RADHA VASQUEZ ([id number]) [facility]) [address] [place] [address] Creatinine [Mass/Vol] 0.68 mg/dL Normal 0.57-1.11 [facility] Comment on above: Performed By: #### L [id number] #### Entry Engineer: RADHA [id number]) [facility]) [address] [place] [address] GLOMERULAR FILTRATION RATE ML/MIN/1.73 SQ M.PREDICTED >90.0 Normal >60.0 [facility] Comment on above: Result Comment: Calc ulation based on the Chronic Kidney Disease Epidemiology Collaboration (CKD-EPI) equation refit without adjustment for race Performed By: #### L [id number] #### Entry Engineer: RADHA VASQUEZ ([id number]) [facility] ([facility]) [address] [place] [address] Glucose [Mass/Vol] 79 mg/dL Normal 74-100 [facility] Comment on above: Performed By: #### L [id number] #### Entry Engineer: RADHA VASQUEZ ([id number]) [facility]) [address] [place] [address] Potassium [Moles/Vol] 3.5 mmol/L Normal 3.5-5.1 [facility] Comment on above: Result Comment: Plas ma potassium values may be up to 0.5 mmol/L lower than serum values. Performed By: #### L [id number] #### Entry Engineer: RADHA VASQUEZ ([id number]) [facility]) [address] [place] [address] [place] Protein [Mass/Vol] 6.3 g/dL Low 6.4-8.3 [facility] Comment on above: Performed By: #### L [id number] #### Entry Engineer: RADHA VASQUEZ ([id number]) [facility]) [address] [place] [address] [place] Sodium [Moles/Vol] 134 mmol/L Low 136-145 [facility] Comment on above: Performed By: #### L [id number] #### Entry Engineer: RADHA VASQUEZ ([id number]) [facility]) [address] [place] [address] [place] Urea nitrogen [Mass/Vol] 6 mg/dL Low 8-21 [facility] Comment on above: Performed By: #### L [id number] #### Entry Engineer: RADHA VASQUEZ ([id number]) [facility] ([facility]) [address] [place] [address] Comprehensive metabolic 1998 panelon 01-27-2025 Albumin [Mass/Vol] 2.5 g/dL Low 3.5 - 5.0 g/dL [facility] ALP [Catalytic activity/Vol] 75 U/L 40 - 150 U/L [facility] ALT [Catalytic activity/Vol] 6 U/L NINF - 30 U/L [facility] Anion gap [Moles/Vol] 6 mmol/L 3 - 13 mmol/L [facility] AST [Catalytic activity/Vol] 18 U/L NINF - 34 U/L [facility] Bilirubin [Mass/Vol] 0.2 mg/dL NINF - 1.2 mg/dL [facility] Calcium [Mass/Vol] 8.5 mg/dL 8.4 - 10. 2 mg/dL [facility] Chloride [Moles/Vol] 106 mmol/L 98 - 10 7 mmol/L [facility] CO2 [Moles/Vol] 22 mmol/L 22 - 29 mmol/L [facility] Creatinine [Mass/Vol] 0.68 mg/dL 0.57 - 1.11 mg/dL [facility] GFR/1.73 sq M.predicted (S/P/Bld) [Vol rate/Area] - PINF [facility] Comment on above: Calculation based on the Chronic Kidney Disease Epidemiology Collaboration (CKD-EPI) equation refit without adjustment for race Glucose [Mass/Vol] 79 mg/dL 74 - 100 mg/dL [facility] Interpretation and review of laboratory results Abnormal [facility] Potassium [Moles/Vol] 3.5 mmol/L 3.5 - 5.1 mmol/L [facility] Comment on above: Plasma potassium ayanna ues may be up to 0.5 mmol/L lower than serum values. Protein [Mass/Vol] 6.3 g/dL Low 6.4 - 8.3 g/dL [facility] Sodium [Moles/Vol] 134 mmol/L Low 136 - 145 mmol/L [facility] Urea nitrogen [Mass/Vol] 6 mg/dL Low 8 - 21 mg/dL [facility] ECG 12-LEADon 01-27-2025 ECG 12-LEAD IMPRESSION: Sinus rhythm Low voltage, precordial leads Normal [place] No ST or T wave changes Electronically Signed On 01-27-2025 08:44:08 EDT by Scott Lowe Normal [facility] GROUP B STREP SCREEN BY PCRo n 01-27-2025 GROUP B STREP SCREEN BY PCR GROUP B STREP SCREEN BY PCR Reference Not Detected Not Detected ORDER COMMENTS: Methodology: real-time PCR Normal [facility] Comment on above: Performed By: #### L [id number] #### Entry Engineer: RADHA VASQUEZ ([id number]) [facility]) [address] [place] [address] Laboratory - Chemistry and C hemistry - challengeon 01-27-2025 Glucose [Mass/Vol] 122 mg/dL High 70 - 100 mg/dL [facility] Glucose [Mass/Vol] 84 mg/dL 70 - 100 mg/dL [facility] TSH Qn 3.5 m[IU]/L [facility] Glucose [Mass/Vol] 129 mg/dL High 70 - 100 mg/dL [facility] Magnesium [Mass/Vol] 2 mg/dL 1.6 - 2 .6 mg/dL [facility] MAGNESIUMon 01-27-2025 Magnesium [Mass/Vol] 2.0 mg/dL Normal 1.6-2.6 [facility] Comment on above: Result Comment: TRINA Horta COMMENTS: Higher values can be expected in females during menses. Performed By: #### L AB17, FII225, RFU497, XRU942 #### Entry Engineer: RADHA VASQUEZ ([id number]) [facility] ([facility]) [address] [place] [address] Magnesium [Mass/Vol]on 01-27 Higher values can be expected in females during menses. [facility] N. gonorrhoeae DNA MAE+probe Ql (Cervical mucus)on 01-27-2025 C. trachomatis DNA MAE+probe Ql (Unsp spec) Not detected Not Detected [facility] Interpretation and review of laboratory results Normal [facility] N gonorrhoeae, DNA Probe Not detected Not Detected [facility] Methodology: real-ti me PCR This test is [...] specimen should be collected if clinically indicated. [employer] No Panel Informationon 01-27 1. Branch live [...] ultrasound findings do not guarantee normal outcomes. [employer] RADIOLOGY SYSTEM OBSTETRICS REPORT (Signed Final 01/27/2025 02:35 pm) PATIENT INFO: ID #: [id number] : [birth year] (34 yrs)(F) Name: YESSI ANNE Visit Date: 01/27/2025 09:29 am PERFORMED BY: Attending: Cory Stringer MD, RON, FACOG Performed By: Oni BROWER, VONDA Referred By: TRACI MONTILLA Location: [facility] IP Visit Type: Inpatient - Hospital SERVICE(S) PROVIDED: US >= 14 weeks [address] BPP w/out NST 27011 INDICATIONS: Poor weight gain Hypoglycemia VITAL SIGNS: [...] Normal appearance Interventr. Septum: Normal appearance Cardiac [place]: Normal appearance Diaphragm: Normal appearance 3 Vessel View: Normal appearance 3 V Trachea View: Normal appearance IVC: Normal Appearance Crossing: Normal appearance Abdomen Ventral Wal (more content not included)... [facility] Josemanuel Stringer MD - 01/27/2025 OBSTETRICS REPORT (Signed Final 01/27/2025 02:35 pm) PATIENT INFO: ID #: [id number] : [birth year] (34 yrs)(F) Name: YESSI ANNE Visit Date: 01/27/2025 09:29 am PERFORMED BY: Attending: Cory Stringer MD, RON, FACOG Performed By: Oni BROWER, RD Referred By: TRACI MONTILLA Location: [facility] IP Visit Type: Inpatient - Hospital SERVICE(S) PROVIDED: US >= 14 weeks [address]82 BPP w/out NST 48095 INDICATIONS: Poor weight gain Hypoglycemia VITAL SIGNS: [...] Normal appearance Interventr. Septum: Normal appearance Cardiac [place]: Normal appearance Diaphragm: Normal appearance 3 Vessel [...] - Normal appearance Cory Stringer MD, RON, [facility] Electronically Signed Final Report 01/27/2025 02:35 pm IMPRESSION: (more content not included)... [facility] Interpretation and review of laboratory results Abnormal [facility] Performed by: [address] [address] CLIA ID: [id number] [facility] Sinus rhythm Low voltage, precordial leads Normal [place] No ST or T wave changes Electronically Signed On 01-27-2025 08:44:08 EDT by Scott Lowe Scott Lopez MD - 01/27/2025 IMPRESSION: Sinus rhythm Low voltage, precordial leads Normal [place] No ST or T wave changes Electronically Signed On 01-27-2025 08:44:08 EDT by Scott Lowe [facility] Interpretation and review of laboratory results Normal [facility] Performed by: [address] [address] CLIA ID: [id number] [facility] [employer] Radiology Study observation (narrative) [facility] Interpretation and review of laboratory results Abnormal [facility] Performed by: [address] [address] CLIA ID: [id number] [facility] Interpretation and review of laboratory results Normal [facility] No Panel InformationOrdered By: Josemanuel Stringer on 01-27-2025 [employer] Work Phone: No Panel InformationOrdered By: Scott Lowe on 01-27-2025 P [place] 66 degrees [employer] Work Phone: [place] [employer] 134 ms [facility] Work Phone: QRS [place] 84 degrees [facility] Work Phone: QRSD Interval 86 ms [facility] Phone: QT Interval 360 ms [facility] Work Phone: QTC Interval 420 ms [facility] Phone: T Wave [place] 52 degrees [facility] Phone: [facility] Work Phone: Nursing Noteon 01-27-2025 Nursing Note 1300 iron infusion complete, per DR. Stringer, may be discharged to home ., iv heplock removed, clean dry and intact., discharge papers given, no acute distress this afternoon, blood sugars trending normal and pt is asymptomatic at present time, feels reassured to go home., papers signed, ambulatory home Normal [facility] PHOSPHORUSon 01-27-2025 Phosphate [Mass/Vol] 3.0 mg/dL Normal 2.3-4.7 [facility] Comment on above: Performed By: #### L AB17, QTI041, KIZ580, GGQ795 #### Entry Engineer: RADHA VASQUEZ ([id number]) [address] Phosphate [Moles/Vol]on 01-18 Phosphate [Mass/Vol] 3 mg/dL 2.3 - 4 .7 mg/dL [facility] Progress Noteon 01-27-2025 Progress Note ------- Attestation [...] PRESENT ILLNESS: Presents as a transfer from [facility] for symptomatic hypoglycemia. Blood sugar here [...] PROVIDER: Dr. Stringer DISPOSITION: Admit to L&D [facility] T. vaginalis DNA MAE+probe Q l (Genital specimen)on 07-10-2025 Interpretation and review of laboratory results Normal [facility] Trichomonas vaginalis Not detected Not Detected [facility] Methodology: real-ti me PCR A negative result [...] sexual abuse or for other forensic purposes. [facility] THYROID STIMULATING HORMONEo n 01-27-2025 THYROID STIMULATING HORMONE 3.50 uIU/mL Normal 0.35-4.94 [facility] Comment on above: Performed By: #### L AB294 #### Entry Engineer: RADHA VASQUEZ ([id number]) [address] TRICHOMONAS VAGINALIS PCRon 01-27-2025 TRICHOMONAS VAGINALIS [...] abuse or for other forensic purposes. Normal [facility] Comment on above: Performed By: #### L AK5005, LHU3692 #### Entry Engineer: RADHA VASQUEZ ([id number]) [address] TSH Qnon 01-27-2025 Interpretation and review of laboratory results Normal [facility] URINE CULTUREon 01-27-2025 Bacteria identified Cx Nom (U) URINE CULTURE Reference Normal urogenital keke present [ S = SUSCEPTIBLE R = RESISTANT I = INTERMEDIATE S-DD = Susceptible-dose dependent NS = Non-susceptible NO = No Interpretation ] Normal [facility] Comment on above: Performed By: #### L AB294 #### Entry Engineer: RADHA VASQUEZ ([id number]) [address] US BIOPHYSICAL PROFILE WO NON STRESS TESTINGon 01-27-2025 US BIOPHYSICAL PROFILE WO NON STRESS TESTING OBSTETRICS REPORT (Signed Final 01/27/2025 02:35 pm) PATIENT INFO: ID #: [id number] : [birth year] (34 yrs)(F) Name: YESSI ANNE Visit Date: 01/27/2025 09:29 am PERFORMED BY: Attending: Cory Stringer MD, RON, FACOG Performed By: Oni BROWER, RDMS Referred By: TRACI MONTILLA Location: [facility] IP Visit Type: Inpatient - Hospital SERVICE(S) PROVIDED: US >= 14 weeks 49124 BPP w/out NST 91750 INDICATIONS: Poor weight gain Hypoglycemia VITAL SIGNS: [...] Normal appearance Interventr. Septum: Normal appearance Cardiac [place]: Normal appearance Diaphragm: Normal appearance 3 Vessel [...] 35%tile for (more content not included)... Normal [facility] US OB 14+ WEEKS SINGLE FETUS MATERNAL EVAL TRANSABDOMINALon 01-27-2025 US OB 14+ WEEKS SINGLE FETUS MATERNAL EVAL TRANSABDOMINAL OBSTETRICS REPORT (Signed Final 01/27/2025 02:35 pm) PATIENT INFO: ID #: [id number] : [birth year] (34 yrs)(F) Name: YESSI ANNE Visit Date: 01/27/2025 09:29 am PERFORMED BY: Attending: Cory Stringer MD, RON, FACOG Performed By: Oni BROWER, RDMS Referred By: TRACI MONTILLA Location: [facility] IP Visit Type: Inpatient - Hospital SERVICE(S) PROVIDED: US >= 14 weeks 75794 BPP w/out NST 90478 INDICATIONS: Poor weight gain Hypoglycemia VITAL SIGNS: [...] Normal appearance Interventr. Septum: Normal appearance Cardiac [place]: Normal appearance Diaphragm: Normal appearance 3 Vessel [...] 35%tile for (more content not included)... Normal [facility] [facility] Vital signsOrdered By: Scott Lowe on 01-27-2025 Heart rate 82 /min bpm [employer] Work Phone: Bedside Glucoseon 01-26-2025 FINGERSTICK GLU 117 mg/dL High 74-106 [facility] Comment on above: Result Comment: ERIBERTO GIRALDO OF PATIENT CARE PER NURSING PROTOCOL Performed By: #### L 501.080 ####[facility] [address] [place], [address] FINGERSTICK GLU 86 mg/dL Normal 74-106 [facility] Comment on above: Result Comment: ERIBERTO GEMENT OF PATIENT CARE PER NURSING PROTOCOL Performed By: #### L 501.080 ####[facility] [address] [place], [address] FINGERSTICK GLU 74 mg/dL Normal 74-106 [facility] Comment on above: Result Comment: ERIBERTO GEMENT OF PATIENT CARE PER NURSING PROTOCOL Performed By: #### L 501.080 ####[facility] [address] [place], [address] FINGERSTICK GLU 53 mg/dL Low 74-106 [facility] Comment on above: Result Comment: ERIBERTO GEMENT OF PATIENT CARE PER NURSING PROTOCOL Performed By: #### L 501.080 ####[facility] [address] [place], [address] FINGERSTICK GLU 94 mg/dL Normal 74-106 [facility] Comment on above: Result Comment: ERIBERTO GEMENT OF PATIENT CARE PER NURSING PROTOCOL Performed By: #### L 501.080 ####[facility] [address] [place], [address] CBC W/Diff, Automatedon 07-0 9-5 Absolute Lymph 1.33 X10 3/uL Normal 0.83-4.51 [facility] Comment on above: Performed By: #### L 100.0100 ####[facility] [address] [place], [address] Absolute Neut 6.0 X10 3/uL Normal 2.0-7.7 [facility] Comment on above: Performed By: #### L 100.0100 ####[facility] [address] [place], [address] Basophils/100 WBC (Bld) 0.4 % Normal 0-1 [facility] Comment on above: Performed By: #### L 100.0100 ####[facility] [address] [place], [address] Eosinophils/100 WBC (Bld) 0.4 % Normal 0-5 [facility] Comment on above: Performed By: #### L 100.0100 ####[facility] [address] [place], [address] Erythrocyte distribution width (RBC) [Ratio] 12.1 % Normal 11.6-14.6 [facility] Comment on above: Performed By: #### L 100.0100 ####[facility] [address] [place], [address] Hematocrit (Bld) [Volume fraction] 30.1 % Low 37-47 [facility] Comment on above: Performed By: #### L 100.0100 ####[facility] [address] [place], [address] Hemoglobin (Bld) [Mass/Vol] 10.3 g/dL Low 12.0-15.0 [facility] Comment on above: Performed By: #### L 100.0100 ####[facility] [address] [place], [address] IG% 0.400 Normal 0.0-0.9 [facility] Comment on above: Result Comment: IG% - Immature Granulocytes (promyelocytes, myelocytes andmetamyelocytes) > 1% indicates that a LEFT SHIFT is Present. Performed By: #### L 100.0100 ####[facility] [address] [place], [address] Lymphocytes/100 WBC (Bld) 16.7 % Low 19-41 [facility] Comment on above: Performed By: #### L 100.0100 ####[facility] [address] [place], [address] MCH (RBC) [Entitic mass] 31.0 pg Normal 27.0-32.0 [facility] Comment on above: Performed By: #### L 100.0100 ####[facility] [address] [place], [address] MCHC (RBC) [Mass/Vol] 34.2 g/dL Normal 32-36 [facility] Comment on above: Performed By: #### L 100.0100 ####[facility] [address] [place], [address] MCV (RBC) [Entitic vol] 90.7 fL Normal 81-99 [facility] Comment on above: Performed By: #### L 100.0100 ####[facility] [address] [place], [address] Monocytes/100 WBC (Bld) 6.5 % Normal 0-10 [facility] Comment on above: Performed By: #### L 100.0100 ####[facility] [address] [place], [address] Neutrophils/100 WBC (Bld) 75.6 % High 47-70 [facility] Comment on above: Performed By: #### L 100.0100 ####[facility] [address] [place], [address] Nucleated RBC (Bld) [#/Vol] 0 10*3/uL Normal 0-5 [facility] Comment on above: Performed By: #### L 100.0100 ####[facility] [address] [place], [address] Platelet mean volume (Bld) [Entitic vol] 11.3 fL Normal 6.2-12.0 [facility] Comment on above: Performed By: #### L 100.0100 ####[facility] [address] [place], [address] Platelets (Bld) [#/Vol] 252 10*3/uL Normal 150-450 [facility] Comment on above: Performed By: #### L 100.0100 ####[facility] [address] [place], [address] RBC (Bld) [#/Vol] 3.32 10*6/uL Low 4.2-5.4 [facility] Comment on above: Performed By: #### L 100.0100 ####[facility] [address] [place], [address] RDW SD 39.3 fl Normal 35.1-43.9 [facility] Comment on above: Performed By: #### L 100.0100 ####[facility] [address] [place], [address] WBC (Bld) [#/Vol] 8.0 10*3/uL Normal 4.4-11.0 [facility] Comment on above: Performed By: #### L 100.0100 ####[facility] [address] [place], [address] Comprehensive Metabolic Prof [facility] 01-26-2025 Albumin [Mass/Vol] 3.4 g/dL Low 3.5-5.0 [facility] Comment on above: Performed By: #### L 501.9520, L500.4050, L501.21143, L506.0400, L501.2450, L509.6001 ####[facility] [address] [place], [address] Albumin/Globulin [Mass ratio] 1.1 {ratio} Normal 0.9-2.4 [facility] Comment on above: Performed By: #### L 501.9520, L500.4050, L501.28226, L506.0400, L501.2450, L509.6001 ####[facility] [address] [place], [address] ALK PHOS 84 U/L Normal 35-104 [facility] Comment on above: Performed By: #### L 501.9520, L500.4050, L501.30841, L506.0400, L501.2450, L509.6001 ####[facility] [address] [place], [address] ALT [Catalytic activity/Vol] 9 U/L Normal <=34 [facility] Comment on above: Performed By: #### L 501.9520, L500.4050, L501.72288, L506.0400, L501.2450, L509.6001 ####[facility] [address] [place], [address] AST [Catalytic activity/Vol] 15 U/L Normal <=31 [facility] Comment on above: Performed By: #### L 501.9520, L500.4050, L501.91027, L506.0400, L501.2450, L509.6001 ####[facility] [address] [place], [address] Bilirubin [Mass/Vol] 0.19 mg/dL Normal 0.00-1.30 [facility] Comment on above: Performed By: #### L 501.9520, L500.4050, L501.40601, L506.0400, L501.2450, L509.6001 ####[facility] [address] [place], [address] BUN/CRE 14.0 RATIO Normal 10-20 [facility] Comment on above: Performed By: #### L 501.9520, L500.4050, L501.28425, L506.0400, L501.2450, L509.6001 ####[facility] [address] [place], [address] Calcium [Mass/Vol] 8.9 mg/dL Normal 7.6-11.0 [facility] Comment on above: Performed By: #### L 501.9520, L500.4050, L501.75327, L506.0400, L501.2450, L509.6001 ####[facility] [address] [place], [address] Chloride [Moles/Vol] 102 mmol/L Normal 98-108 [facility] Comment on above: Performed By: #### L 501.9520, L500.4050, L501.06468, L506.0400, L501.2450, L509.6001 ####[facility] [address] [place], [address] CO2 [Moles/Vol] 22.7 mmol/L Normal 21.0-32.0 [facility] Comment on above: Performed By: #### L 501.9520, L500.4050, L501.28049, L506.0400, L501.2450, L509.6001 ####[facility] [address] [place], [address] Creatinine [Mass/Vol] 0.63 mg/dL Low 0.70-1.20 [facility] Comment on above: Performed By: #### L 501.9520, L500.4050, L501.25275, L506.0400, L501.2450, L509.6001 ####[facility] [address] [place], [address] ECRCL 106.62 ml/min Normal 50-250 [facility] Comment on above: Performed By: #### L 501.9520, L500.4050, L501.87351, L506.0400, L501.2450, L509.6001 ####[facility] [address] [place], [address] GAP 11 Normal 5-15 [facility] Comment on above: Performed By: #### L 501.9520, L500.4050, L501.54685, L506.0400, L501.2450, L509.6001 ####[facility] [address] [place], [address] GFR/1.73 sq M.predicted among non-blacks MDRD (S/P/Bld) [Vol rate/Area] 120 mL/min/{1.73_m2} Normal >60 [facility] Comment on above: Result Comment: mL/m in/1.73m2 CKD-EPI Creatinine Equation (2020) Performed By: #### L 501.9520, L500.4050, L501.89656, L506.0400, L501.2450, L509.6001 ####[facility] [address] [place], [address] Globulin (S) [Mass/Vol] 3.2 g/dL Normal 2.2-4.2 [facility] Comment on above: Performed By: #### L 501.9520, L500.4050, L501.92610, L506.0400, L501.2450, L509.6001 ####[facility] [address] [place], [address] Glucose [Mass/Vol] 95 mg/dL Normal 70-99 [facility] Comment on above: Performed By: #### L 501.9520, L500.4050, L501.68252, L506.0400, L501.2450, L509.6001 ####[facility] [address] [place], [address] Potassium [Moles/Vol] 3.5 mmol/L Normal 3.3-5.1 [facility] Comment on above: Performed By: #### L 501.9520, L500.4050, L501.89315, L506.0400, L501.2450, L509.6001 ####[facility] [address] [place], [address] Sodium [Moles/Vol] 136 mmol/L Normal 133-145 [facility] Comment on above: Performed By: #### L 501.9520, L500.4050, L501.37293, L506.0400, L501.2450, L509.6001 ####[facility] [address] [place], [address] T PROT 6.6 g/dL Normal 5.9-8.4 [facility] Comment on above: Performed By: #### L 501.9520, L500.4050, L501.03409, L506.0400, L501.2450, L509.6001 ####[facility] [address] [place], [address] Urea nitrogen [Mass/Vol] 9 mg/dL Normal 4-19 [facility] Comment on above: Performed By: #### L 501.9520, L500.4050, L501.34898, L506.0400, L501.2450, L509.6001 ####[facility] [address] [place], [address] Emergency Department Summary on 01-26-2025 Emergency Department Summary Normal [facility] Free T3on 01-26-2025 Free T3 [Mass/Vol] 2.5 pg/mL Normal 2.18-3.98 [facility] Comment on above: Performed By: #### L 501.9520, L500.4050, L501.05229, L506.0400, L501.2450, L509.6001 ####[facility] [address] 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 [place], [place], [address] L509.7001on 01-26-2025 Procalcitonin 0.06 ng/mL Normal <=0.10 [facility] Comment on above: Result Comment: Inte [...] Performed By: #### L 3100.7750, L3300.3500, L509.7001 ####[facility] [address] [place], [address] Laboratory - Chemistry and C hemistry - challengeon 01-26-2025 Glucose [Mass/Vol] 113 mg/dL High 70 - 100 mg/dL [facility] Lipaseon 01-26-2025 Lipase [Catalytic activity/Vol] 38 U/L Normal 13-75 [facility] Comment on above: Result Comment: Plealy coronado note:LIPASE revised reference range effective 22.New Lipase methodology. Expected to produce lower valuesthan the previous assay method.NEW Reference Range: 13 - 75 U/L Performed By: #### L 501.9520, L500.4050, L501.94394, L506.0400, L501.2450, L509.6001 ####[facility] [address] [place], [address] No Panel Informationon 01-26 Interpretation and review of laboratory results Abnormal [facility] Performed by: [facility], [address] [place] [address] CLIA ID: [id number] [facility] PTHINon 01-26-2025 PTH 45 pg/mL Normal 11-61 [facility] Comment on above: Performed By: #### L 509.1000 ####[facility] [address] [place], [address] T4 Free Directon 01-26-2025 T4 FREE DIRECT 0.90 ng/dL Normal 0.76-1.46 [facility] Comment on above: Performed By: #### L 501.9520, L500.4050, L501.76204, L506.0400, L501.2450, L509.6001 ####[facility] [address] [place], [address] Thyroid Stim Hormone (TSH)on 01-26-2025 TSH 1.440 uIU/mL Normal 0.300-4.200 [facility] Comment on above: Performed By: #### L 501.9520, L500.4050, L501.92373, L506.0400, L501.2450, L509.6001 ####[facility] [address] [place], [address] Urinalysis, Completeon 01-26 EPI,SQUAMOUS 0-5 SEEN Normal 5-10 [facility] Comment on above: Order Comment: CLEAN CATCH Performed By: #### L 400.0001 ####[facility] [address] [place], [address] Mucus Ql (Urine sed) 1+ /hpf Normal [facility] Comment on above: Order Comment: CLEAN CATCH Performed By: #### L 400.0001 ####[facility] [address] [place], [address] RBC 0-5 SEEN Normal 0-5 [facility] Comment on above: Order Comment: CLEAN CATCH Performed By: #### L 400.0001 ####[facility] [address] [place], [place], [address] WBC 0-5 SEEN Normal 0-5 [facility] Comment on above: Order Comment: CLEAN CATCH Performed By: #### L 400.0001 ####[facility] [address] [place], [address] BACTERIA 0 SEEN Normal None Seen [facility] Comment on above: Order Comment: CLEAN CATCH Performed By: #### L 400.0001 ####[facility] [address] [place], [address] L3300.8200on 01-19-2025 VITAMIN B6 2.7 ug/L Low 3.4-65.2 [facility] Comment on above: Order Comment: Test( s) 056893-Rfdlyhx B6was developed and its performance characteristicsdetermined by [employer]. It has not been cleared or approvedby the Food and Drug Administration. Result Comment: Defi ciency: <3.4 Marginal: 3.4 - 5.1 Adequate: >5.1Performed at: [facility] [address] [id number] Director: Nae Mendiola MD, Phone: [phone] Performed By: #### L 503.0106, L3890.6006, L506.0400, L3300.8200, L501.9520, L100.0100, L509.8002, L500.4050 ####[facility] [address] [place], [address] CBC W/Diff, Automatedon 06-3 0 Absolute Lymph 1.59 X10 3/uL Normal 0.83-4.51 [facility] Comment on above: Performed By: #### L 503.0106, L3890.6006, L506.0400, L3300.8200, L501.9520, L100.0100, L509.8002, L500.4050 ####[facility] [address] [place], [address] Absolute Neut 5.4 X10 3/uL Normal 2.0-7.7 [facility] Comment on above: Performed By: #### L 503.0106, L3890.6006, L506.0400, L3300.8200, L501.9520, L100.0100, L509.8002, L500.4050 ####[facility] [address] [place], [address] Basophils/100 WBC (Bld) 0.5 % Normal 0-1 [facility] Comment on above: Performed By: #### L 503.0106, L3890.6006, L506.0400, L3300.8200, L501.9520, L100.0100, L509.8002, L500.4050 ####[facility] [address] [place], [address] Eosinophils/100 WBC (Bld) 0.7 % Normal 0-5 [facility] Comment on above: Performed By: #### L 503.0106, L3890.6006, L506.0400, L3300.8200, L501.9520, L100.0100, L509.8002, L500.4050 ####[facility] [address] [place], [address] Erythrocyte distribution width (RBC) [Ratio] 12.2 % Normal 11.6-14.6 [facility] Comment on above: Performed By: #### L 503.0106, L3890.6006, L506.0400, L3300.8200, L501.9520, L100.0100, L509.8002, L500.4050 ####[facility] [address] [place], [address] Hematocrit (Bld) [Volume fraction] 31.5 % Low 37-47 [facility] Comment on above: Performed By: #### L 503.0106, L3890.6006, L506.0400, L3300.8200, L501.9520, L100.0100, L509.8002, L500.4050 ####[facility] [address] [place], [address] Hemoglobin (Bld) [Mass/Vol] 10.6 g/dL Low 12.0-15.0 [facility] Comment on above: Performed By: #### L 503.0106, L3890.6006, L506.0400, L3300.8200, L501.9520, L100.0100, L509.8002, L500.4050 ####[facility] [address] [place], [address] IG% 0.400 Normal 0.0-0.9 [facility] Comment on above: Result Comment: IG% - Immature Granulocytes (promyelocytes, myelocytes andmetamyelocytes) > 1% indicates that a LEFT SHIFT is Present. Performed By: #### L 503.0106, L3890.6006, L506.0400, L3300.8200, L501.9520, L100.0100, L509.8002, L500.4050 ####[facility] [address] [place], [address] Lymphocytes/100 WBC (Bld) 21.3 % Normal 19-41 [facility] Comment on above: Performed By: #### L 503.0106, L3890.6006, L506.0400, L3300.8200, L501.9520, L100.0100, L509.8002, L500.4050 ####[facility] [address] [place], [address] MCH (RBC) [Entitic mass] 31.2 pg Normal 27.0-32.0 [facility] Comment on above: Performed By: #### L 503.0106, L3890.6006, L506.0400, L3300.8200, L501.9520, L100.0100, L509.8002, L500.4050 ####[facility] [address] [place], [address] MCHC (RBC) [Mass/Vol] 33.7 g/dL Normal 32-36 [facility] Comment on above: Performed By: #### L 503.0106, L3890.6006, L506.0400, L3300.8200, L501.9520, L100.0100, L509.8002, L500.4050 ####[facility] [address] [place], [address] MCV (RBC) [Entitic vol] 92.6 fL Normal 81-99 [facility] Comment on above: Performed By: #### L 503.0106, L3890.6006, L506.0400, L3300.8200, L501.9520, L100.0100, L509.8002, L500.4050 ####[facility] [address] [place], [address] Monocytes/100 WBC (Bld) 4.8 % Normal 0-10 [facility] Comment on above: Performed By: #### L 503.0106, L3890.6006, L506.0400, L3300.8200, L501.9520, L100.0100, L509.8002, L500.4050 ####[facility] [address] [place], [address] Neutrophils/100 WBC (Bld) 72.3 % High 47-70 [facility] Comment on above: Performed By: #### L 503.0106, L3890.6006, L506.0400, L3300.8200, L501.9520, L100.0100, L509.8002, L500.4050 ####[facility] [address] [place], [address] Nucleated RBC (Bld) [#/Vol] 0 10*3/uL Normal 0-5 [facility] Comment on above: Performed By: #### L 503.0106, L3890.6006, L506.0400, L3300.8200, L501.9520, L100.0100, L509.8002, L500.4050 ####[facility] [address] [place], [address] Platelet mean volume (Bld) [Entitic vol] 11.6 fL Normal 6.2-12.0 [facility] Comment on above: Performed By: #### L 503.0106, L3890.6006, L506.0400, L3300.8200, L501.9520, L100.0100, L509.8002, L500.4050 ####[facility] [address] [place], [address] Platelets (Bld) [#/Vol] 280 10*3/uL Normal 150-450 [facility] Comment on above: Performed By: #### L 503.0106, L3890.6006, L506.0400, L3300.8200, L501.9520, L100.0100, L509.8002, L500.4050 ####[facility] [address] [place], [address] RBC (Bld) [#/Vol] 3.40 10*6/uL Low 4.2-5.4 [facility] Comment on above: Performed By: #### L 503.0106, L3890.6006, L506.0400, L3300.8200, L501.9520, L100.0100, L509.8002, L500.4050 ####[facility] [address] [place], [address] RDW SD 41.3 fl Normal 35.1-43.9 [facility] Comment on above: Performed By: #### L 503.0106, L3890.6006, L506.0400, L3300.8200, L501.9520, L100.0100, L509.8002, L500.4050 ####[facility] [address] [place], [place], [address] WBC (Bld) [#/Vol] 7.5 10*3/uL Normal 4.4-11.0 [facility] Comment on above: Performed By: #### L 503.0106, L3890.6006, L506.0400, L3300.8200, L501.9520, L100.0100, L509.8002, L500.4050 ####[facility] [address] [place], [address] Comprehensive Metabolic Prof [facility] 01-17-2025 Albumin [Mass/Vol] 3.5 g/dL Normal 3.5-5.0 [facility] Comment on above: Performed By: #### L 503.0106, L3890.6006, L506.0400, L3300.8200, L501.9520, L100.0100, L509.8002, L500.4050 ####[facility] [address] [place], [address] Albumin/Globulin [Mass ratio] 1.1 {ratio} Normal 0.9-2.4 [facility] Comment on above: Performed By: #### L 503.0106, L3890.6006, L506.0400, L3300.8200, L501.9520, L100.0100, L509.8002, L500.4050 ####[facility] [address] [place], [address] ALK PHOS 81 U/L Normal 35-104 [facility] Comment on above: Performed By: #### L 503.0106, L3890.6006, L506.0400, L3300.8200, L501.9520, L100.0100, L509.8002, L500.4050 ####[facility] [address] [place], [address] ALT [Catalytic activity/Vol] 10 U/L Normal <=34 [facility] Comment on above: Performed By: #### L 503.0106, L3890.6006, L506.0400, L3300.8200, L501.9520, L100.0100, L509.8002, L500.4050 ####[facility] [address] [place], [address] AST [Catalytic activity/Vol] 16 U/L Normal <=31 [facility] Comment on above: Performed By: #### L 503.0106, L3890.6006, L506.0400, L3300.8200, L501.9520, L100.0100, L509.8002, L500.4050 ####[facility] [address] [place], [address] Bilirubin [Mass/Vol] 0.22 mg/dL Normal 0.00-1.30 [facility] Comment on above: Performed By: #### L 503.0106, L3890.6006, L506.0400, L3300.8200, L501.9520, L100.0100, L509.8002, L500.4050 ####[facility] [address] [place], [address] BUN/CRE 13.1 RATIO Normal 10-20 [facility] Comment on above: Performed By: #### L 503.0106, L3890.6006, L506.0400, L3300.8200, L501.9520, L100.0100, L509.8002, L500.4050 ####[facility] [address] [place], [address] Calcium [Mass/Vol] 9.1 mg/dL Normal 7.6-11.0 [facility] Comment on above: Performed By: #### L 503.0106, L3890.6006, L506.0400, L3300.8200, L501.9520, L100.0100, L509.8002, L500.4050 ####[facility] [address] [place], [address] Chloride [Moles/Vol] 101 mmol/L Normal 98-108 [facility] Comment on above: Performed By: #### L 503.0106, L3890.6006, L506.0400, L3300.8200, L501.9520, L100.0100, L509.8002, L500.4050 ####[facility] [address] [place], [place], [phone](216) CO2 [Moles/Vol] 20.9 mmol/L Low 21.0-32.0 [facility] Comment on above: Performed By: #### L 503.0106, L3890.6006, L506.0400, L3300.8200, L501.9520, L100.0100, L509.8002, L500.4050 ####[facility] [address] [place], [place], [phone](730) Creatinine [Mass/Vol] 0.66 mg/dL Low 0.70-1.20 [facility] Comment on above: Performed By: #### L 503.0106, L3890.6006, L506.0400, L3300.8200, L501.9520, L100.0100, L509.8002, L500.4050 ####[facility] [address] [place], [place], [phone](023) GAP 13 Normal 5-15 [facility] Comment on above: Performed By: #### L 503.0106, L3890.6006, L506.0400, L3300.8200, L501.9520, L100.0100, L509.8002, L500.4050 ####[facility] [address] [place], [address] GFR/1.73 sq M.predicted among non-blacks MDRD (S/P/Bld) [Vol rate/Area] 119 mL/min/{1.73_m2} Normal >60 [facility] Comment on above: Result Comment: mL/m in/1.73m2 CKD-EPI Creatinine Equation (2020) Performed By: #### L 503.0106, L3890.6006, L506.0400, L3300.8200, L501.9520, L100.0100, L509.8002, L500.4050 ####[facility] [address] [place], [address] Globulin (S) [Mass/Vol] 3.2 g/dL Normal 2.2-4.2 [facility] Comment on above: Performed By: #### L 503.0106, L3890.6006, L506.0400, L3300.8200, L501.9520, L100.0100, L509.8002, L500.4050 ####[facility] [address] [place], [address] Glucose [Mass/Vol] 121 mg/dL High 70-99 [facility] Comment on above: Performed By: #### L 503.0106, L3890.6006, L506.0400, L3300.8200, L501.9520, L100.0100, L509.8002, L500.4050 ####[facility] [address] [place], [address] Potassium [Moles/Vol] 3.6 mmol/L Normal 3.3-5.1 [facility] Comment on above: Performed By: #### L 503.0106, L3890.6006, L506.0400, L3300.8200, L501.9520, L100.0100, L509.8002, L500.4050 ####[facility] [address] [place], [place], [address] Sodium [Moles/Vol] 135 mmol/L Normal 133-145 [facility] Comment on above: Performed By: #### L 503.0106, L3890.6006, L506.0400, L3300.8200, L501.9520, L100.0100, L509.8002, L500.4050 ####[facility] [address] [place], [place], [phone] T PROT 6.8 g/dL Normal 5.9-8.4 [facility] Comment on above: Performed By: #### L 503.0106, L3890.6006, L506.0400, L3300.8200, L501.9520, L100.0100, L509.8002, L500.4050 ####[facility] [address] [place], [place], [address] Urea nitrogen [Mass/Vol] 9 mg/dL Normal 4-19 [facility] Comment on above: Performed By: #### L 503.0106, L3890.6006, L506.0400, L3300.8200, L501.9520, L100.0100, L509.8002, L500.4050 ####[facility] [address] [place], [place], [phone] HIVon 01-17-2025 HIV Non-Reactive Normal Nonreactive [facility] Comment on above: Result Comment: Non- ReactiveReactiveRepeatedly reactive samples must be confirmed according toCDC recommended confirmatory algorithms. The subresults foreither HIVAG or AHIV can be used as an aid in the selectionof the confirmation algorithm for reactive samples.Send out specimens with Reactive results to [facility] forconfirmation.Order the HIV antibody detection and differentiation:lc#[id number] Performed By: #### L 503.0106, L3890.6006, L506.0400, L3300.8200, L501.9520, L100.0100, L509.8002, L500.4050 ####[facility] [address] [place], [place], [address] [employer] [facility] Visit Reporton 01-17-2025 [employer] Visit Report Normal [facility] Syphilis Antibodieson 2024 Syphilis Abs Non-Reactive Normal Nonreactive [facility] Comment on above: Performed By: #### L 503.0106, L3890.6006, L506.0400, L3300.8200, L501.9520, L100.0100, L509.8002, L500.4050 ####[facility] [address] [place], [place], [phone] T4 Free Directon 01-17-2025 T4 FREE DIRECT 1.00 ng/dL Normal 0.76-1.46 [facility] Comment on above: Performed By: #### L 503.0106, L3890.6006, L506.0400, L3300.8200, L501.9520, L100.0100, L509.8002, L500.4050 ####[facility] [address] [place], [place], [address] Thyroid Stim Hormone (TSH)on 01-17-2025 TSH 1.760 uIU/mL Normal 0.300-4.200 [facility] Comment on above: Performed By: #### L 503.0106, L3890.6006, L506.0400, L3300.8200, L501.9520, L100.0100, L509.8002, L500.4050 ####[facility] [address] [place], [place], [address] Vitamin B12on 01-17-2025 Cobalamin (Vitamin B12) [Mass/Vol] 230 pg/mL Normal 180-914 [facility] Comment on above: Performed By: #### L 503.0106, L3890.6006, L506.0400, L3300.8200, L501.9520, L100.0100, L509.8002, L500.4050 ####[facility] [address] [place], [address] [employer] Visit Reporton 01-06-2025 [employer] [facility] Visit Report Normal [facility] [employer] [facility] Visit Reporton 12-08-2024 [employer] [facility] Visit Report Normal [facility] MR/BMS.BPon 12-07-2024 MR/BMS.BP Normal [facility] L3410.9992on 11-12-2024 [facility] Misc. COMMENT Normal . [facility] Comment on above: Order Comment: [id number] 1AFP SERUM RT Result Comment: Test Ordered: [id number] AFP, Serum, Open Spina BifidaResults Report TG [...] Open Spina Bifida RiskFor further inquiries contact [employer] at [phone].This test was developed and its performance characteristicsdetermined by [employer]. It has not been cleared or approvedby the Food and Drug Administration.Performed at: - [facility] [address] [place], [place] [id number] Director: Fabiola Carson [facility], Phone: [phone] at: - [address] [id number] Director: Joseph Doe PhD, Phone: [phone] Performed By: #### L 3410.9992 ####[facility] [address] [place], [place], [phone] [employer] Visit Reporton 11-09-2024 [employer] [facility] Visit Report Normal [facility] [employer] [facility] Visit Reporton 10-20-2024 [employer] [facility] Visit Report Normal [facility] MR/BMS.BPon 10-19-2024 MR/BMS.BP Normal [facility] CBC W/Diff, Automatedon 09-18 Absolute Lymph 1.98 X10 3/uL Normal 0.83-4.51 [facility] Comment on above: Performed By: #### B , L3890.6301, L3890.6102, L900.0098, L100.0100, L509.8002, L509.4006, L3890.6006 ####[facility] [address] [place], [place], [id number] Absolute Neut 5.1 X10 3/uL Normal 2.0-7.7 [facility] Comment on above: Performed By: #### B TS, L3890.6301, L3890.6102, L900.0098, L100.0100, L509.8002, L509.4006, L3890.6006 ####[facility] [address] [place], [address] Basophils/100 WBC (Bld) 0.4 % Normal 0-1 [facility] Comment on above: Performed By: #### B TS, L3890.6301, L3890.6102, L900.0098, L100.0100, L509.8002, L509.4006, L3890.6006 ####[facility] [address] [place], [address] Eosinophils/100 WBC (Bld) 0.9 % Normal 0-5 [facility] Comment on above: Performed By: #### B TS, L3890.6301, L3890.6102, L900.0098, L100.0100, L509.8002, L509.4006, L3890.6006 ####[facility] [address] [place], [address] Erythrocyte distribution width (RBC) [Ratio] 13.4 % Normal 11.6-14.6 [facility] Comment on above: Performed By: #### B TS, L3890.6301, L3890.6102, L900.0098, L100.0100, L509.8002, L509.4006, L3890.6006 ####[facility] [address] [place], [address] Hematocrit (Bld) [Volume fraction] 34.9 % Low 37-47 [facility] Comment on above: Performed By: #### B TS, L3890.6301, L3890.6102, L900.0098, L100.0100, L509.8002, L509.4006, L3890.6006 ####[facility] [address] [place], [address] Hemoglobin (Bld) [Mass/Vol] 11.8 g/dL Low 12.0-15.0 [facility] Comment on above: Performed By: #### B TS, L3890.6301, L3890.6102, L900.0098, L100.0100, L509.8002, L509.4006, L3890.6006 ####[facility] [address] [place], [address] IG% 0.500 Normal 0.0-0.9 [facility] Comment on above: Result Comment: IG% - Immature Granulocytes (promyelocytes, myelocytes andmetamyelocytes) > 1% indicates that a LEFT SHIFT is Present. Performed By: #### B TS, L3890.6301, L3890.6102, L900.0098, L100.0100, L509.8002, L509.4006, L3890.6006 ####[facility] [address] [facility] [place], [address] Lymphocytes/100 WBC (Bld) 25.8 % Normal 19-41 [facility] Comment on above: Performed By: #### B TS, L3890.6301, L3890.6102, L900.0098, L100.0100, L509.8002, L509.4006, L3890.6006 ####[facility] [address] [facility] [place], [address] MCH (RBC) [Entitic mass] 30.4 pg Normal 27.0-32.0 [facility] Comment on above: Performed By: #### B TS, L3890.6301, L3890.6102, L900.0098, L100.0100, L509.8002, L509.4006, L3890.6006 ####[facility] [address] [place], [address] MCHC (RBC) [Mass/Vol] 33.8 g/dL Normal 32-36 [facility] Comment on above: Performed By: #### B TS, L3890.6301, L3890.6102, L900.0098, L100.0100, L509.8002, L509.4006, L3890.6006 ####[facility] [address] [place], [address] MCV (RBC) [Entitic vol] 89.9 fL Normal 81-99 [facility] Comment on above: Performed By: #### B TS, L3890.6301, L3890.6102, L900.0098, L100.0100, L509.8002, L509.4006, L3890.6006 ####[facility] [address] [place], [address] Monocytes/100 WBC (Bld) 5.7 % Normal 0-10 [facility] Comment on above: Performed By: #### B TS, L3890.6301, L3890.6102, L900.0098, L100.0100, L509.8002, L509.4006, L3890.6006 ####[facility] [address] [place], [address] Neutrophils/100 WBC (Bld) 66.7 % Normal 47-70 [facility] Comment on above: Performed By: #### B TS, L3890.6301, L3890.6102, L900.0098, L100.0100, L509.8002, L509.4006, L3890.6006 ####[facility] [address] [place], [address] Nucleated RBC (Bld) [#/Vol] 0 10*3/uL Normal 0-5 [facility] Comment on above: Performed By: #### B TS, L3890.6301, L3890.6102, L900.0098, L100.0100, L509.8002, L509.4006, L3890.6006 ####[facility] [address] [place], [address] Platelet mean volume (Bld) [Entitic vol] 11.8 fL Normal 6.2-12.0 [facility] Comment on above: Performed By: #### B TS, L3890.6301, L3890.6102, L900.0098, L100.0100, L509.8002, L509.4006, L3890.6006 ####[facility] [address] [place], [address] Platelets (Bld) [#/Vol] 301 10*3/uL Normal 150-450 [facility] Comment on above: Performed By: #### B TS, L3890.6301, L3890.6102, L900.0098, L100.0100, L509.8002, L509.4006, L3890.6006 ####[facility] [address] [place], [address] RBC (Bld) [#/Vol] 3.88 10*6/uL Low 4.2-5.4 [facility] Comment on above: Performed By: #### B TS, L3890.6301, L3890.6102, L900.0098, L100.0100, L509.8002, L509.4006, L3890.6006 ####[facility] [address] [place], [address] RDW SD 43.8 fl Normal 35.1-43.9 [facility] Comment on above: Performed By: #### B TS, L3890.6301, L3890.6102, L900.0098, L100.0100, L509.8002, L509.4006, L3890.6006 ####[facility] [address] [place], [address] WBC (Bld) [#/Vol] 7.7 10*3/uL Normal 4.4-11.0 [facility] Comment on above: Performed By: #### B TS, L3890.6301, L3890.6102, L900.0098, L100.0100, L509.8002, L509.4006, L3890.6006 ####[facility] [address] [facility]. [place], [place], [address] L3890.6006on 10-06-2024 HIV Non-Reactive Normal Nonreactive [facility] Comment on above: Result Comment: Non- ReactiveReactiveRepeatedly reactive samples must be confirmed according [facility] recommended confirmatory algorithms. The subresults foreither HIVAG or AHIV can be used as an aid in the selectionof the confirmation algorithm for reactive samples.Send out specimens with Reactive results to [facility] forconfirmation.Order the HIV antibody detection and differentiation:lc#[id number] Performed By: #### B TS, L3890.6301, L3890.6102, L900.0098, L100.0100, L509.8002, L509.4006, L3890.6006 ####[facility] [address] [facility]. [place], [place], [address] L3890.6102on 10-06-2024 HEP B Surf Ag Non-Reactive Normal Nonreactive [facility] Comment on above: Result Comment: Reac tive: Presumptive evidence of HBV. Repeatedly reactivesamples must be confirmed using a neutralization test([employer] HBsAg Confirmatory Test)Non-Reactive: HBsAg not detected; does not exclude thepossibility of exposure to HBV Performed By: #### B TS, L3890.6301, L3890.6102, L900.0098, L100.0100, L509.8002, L509.4006, L3890.6006 ####[facility] [address] [facility]. [place], [place], [address] L3890.6301on 10-06-2024 Hepatitis C Ab Non-Reactive Normal Nonreactive [facility] Comment on above: Result Comment: Reac tive: Presumptive evidence of antibodies to HCV. [facility] recommendations [facility] supplemental testing.Non-Reactive: Antibodies to HCV were not detected; does notexclude the possibility of exposure to HCVReactive Results are presumptive evidence of antibodies toHCV. Follow CDC recommendations for supplemental testing.Order confirmation testing: HCV Quant by PCR testing -HCVPCR lc#[id number] Non Reactive: < 0.8 Equivocal: >/= 0.8 to < 1.0 Reactive: >/= 1.0The [facility] requires that a reactive/equivocal HCV antibodyresult be sent out for confirmation. HCV Quant by PCRtesting. Performed By: #### B TS, L3890.6301, L3890.6102, L900.0098, L100.0100, L509.8002, L509.4006, L3890.6006 ####[facility] [address] [place], [place], [address] L509.4006on 10-06-2024 Rubella IgG REAC Normal Nonreactive [facility] Comment on above: Result Comment: Anti body Result: InterpretationNon-Reactive: Non-ImmuneReactive: ImmuneThe following results were obtained with the ElecsysRubella IgG assay. Results from assays of othermanufacturers cannot be used interchangeably. Performed By: #### B TS, L3890.6301, L3890.6102, L900.0098, L100.0100, L509.8002, L509.4006, L3890.6006 ####[facility] [address] [place], [place], [address] L509.8002on 10-06-2024 Syphilis Abs Non-Reactive Normal Nonreactive [facility] Comment on above: Performed By: #### B TS, L3890.6301, L3890.6102, L900.0098, L100.0100, L509.8002, L509.4006, L3890.6006 ####[facility] [address] [place], [place], [id number] NATERAon 10-06-2024 NATURA SEE SCANNED REPORT Normal [facility] Comment on above: Performed By: #### B TS, L3890.6301, L3890.6102, L900.0098, L100.0100, L509.8002, L509.4006, L3890.6006 ####[facility] [address] [place], [address] [employer] [facility] Visit Reporton 10-06-2024 [employer] [facility] Visit Report Normal [facility] Type AND Screenon 10-06-2024 Ab SCREEN GEL Negative Normal [facility] Comment on above: Order Comment: PN Performed By: #### B TS, L3890.6301, L3890.6102, L900.0098, L100.0100, L509.8002, L509.4006, L3890.6006 ####[facility] [address] [place], [place], [address] MISCELLANEOUS SENDOUTon 09-18 Miscellaneous Results Patient results scanned into [employer] Invalid Interpretation Code [facility] Comment on above: Order Comment: Name of Test:->NAIT What is the sendout facility name, if known?->[facility] Release to patient->Automatic (5 days after final result) Progress Noteon 09-27-2024 Appeals Analyst Authentication Interface Message Text Maternal Medicine Consult [...] term pregnancies. The second was delivered at [facility] by section after continuing Category II tracing. [...] Maher from 05/08/22). Yessi was admitted to [facility] from her OB office. She had noted decreased FM with a concerning NST (spontaneous deceleration) in OB office. She was transferred to hospital and delivered by urgent C/S. The was transferred quickly after delivery to [facility] for severe anemia (subsequently noted severe [...] No Ne (more content not included)... Normal [facility] Emergency Department Summary on 09-26-2024 Emergency Department Summary Normal [facility] M100.678on 09-26-2024 M100.678 Pending SARS-CoV-2 (COVID 19) Negative INFLUENZA A Negative INFLUENZA B Negative RSV PCR Negative [facility] Comment on above: Performed By: #### M 100.678 ####[facility] [address] [place], [address] MR/PATRICIA.BPon 09-15-2024 MR/PATRICIA.BP [facility] [employer] Office Visit Reporton 09-15-2024 [employer] Office Visit Report Normal [facility] [employer] [facility] Visit Reporton 09-08-2024 [employer] Office Visit Report Normal [facility] [employer] [facility] Visit Reporton 08-30-2024 [employer] Office Visit Report Normal [facility] Chlamydia/GC MAE aptimaon CHLAMY,NUC ACID Negative Normal Negative [facility] Comment on above: Performed By: #### L 7000.1800, M100.2200 ####[facility] [address] [place], [address] GC BY NUC ACID Negative Normal Negative [facility] Comment on above: Result Comment: Perf ormed at: =G - [facility] [address] [id number] Director: Екатерина Masterson MD, Phone: [phone] Performed By: #### L 7000.1800, M100.2200 ####[facility] [address] [place], [address] Urine Cultureon 08-25-2024 [facility] Mixed Gram Pos Gram Neg Org [place] Count 11,000-25,000 [facility] Mixed contaminants. Submit a new specimen if indicated. Normal [facility] Comment on above: Performed By: #### L 7000.1800, M100.2200 ####[facility] [address] [place], [address] [employer] Office Visit Reporton 08-23-2024 [employer] Visit Report Normal [facility] CBC W/Diff, Automatedon 07-22 Absolute Lymph 2.06 X10 3/uL Normal 0.83-4.51 [facility] Comment on above: Performed By: #### L 100.0100, L500.4050 ####[facility] [address] [place], [address] Absolute Neut 4.2 X10 3/uL Normal 2.0-7.7 [facility] Comment on above: Performed By: #### L 100.0100, L500.4050 ####[facility] [address] [place], [address] Basophils/100 WBC (Bld) 0.6 % Normal 0-1 [facility] Comment on above: Performed By: #### L 100.0100, L500.4050 ####[facility] [address] [place], [address] Eosinophils/100 WBC (Bld) 3.2 % Normal 0-5 [facility] Comment on above: Performed By: #### L 100.0100, L500.4050 ####[facility] [address] [place], [address] Erythrocyte distribution width (RBC) [Ratio] 13.2 % Normal 11.6-14.6 [facility] Comment on above: Performed By: #### L 100.0100, L500.4050 ####[facility] [address] [place], [address] Hematocrit (Bld) [Volume fraction] 36.3 % Low 37-47 [facility] Comment on above: Performed By: #### L 100.0100, L500.4050 ####[facility] [address] [place], [address] Hemoglobin (Bld) [Mass/Vol] 12.4 g/dL Normal 12.0-15.0 [facility] Comment on above: Performed By: #### L 100.0100, L500.4050 ####[facility] [address] [place], [address] IG% 0.300 Normal 0.0-0.9 [facility] Comment on above: Result Comment: IG% - Immature Granulocytes (promyelocytes, myelocytes andmetamyelocytes) > 1% indicates that a LEFT SHIFT is Present. Performed By: #### L 100.0100, L500.4050 ####[facility] [address] [place], [address] Lymphocytes/100 WBC (Bld) 29.0 % Normal 19-41 [facility] Comment on above: Performed By: #### L 100.0100, L500.4050 ####[facility] [address] [place], [address] MCH (RBC) [Entitic mass] 30.5 pg Normal 27.0-32.0 [facility] Comment on above: Performed By: #### L 100.0100, L500.4050 ####[facility] [address] [place], [address] MCHC (RBC) [Mass/Vol] 34.2 g/dL Normal 32-36 [facility] Comment on above: Performed By: #### L 100.0100, L500.4050 ####[facility] [address] [place], [address] MCV (RBC) [Entitic vol] 89.2 fL Normal 81-99 [facility] Comment on above: Performed By: #### L 100.0100, L500.4050 ####[facility] [address] [place], [address] Monocytes/100 WBC (Bld) 7.3 % Normal 0-10 [facility] Comment on above: Performed By: #### L 100.0100, L500.4050 ####[facility] [address] [place], [address] Neutrophils/100 WBC (Bld) 59.6 % Normal 47-70 [facility] Comment on above: Performed By: #### L 100.0100, L500.4050 ####[facility] [address] [place], [address] Nucleated RBC (Bld) [#/Vol] 0 10*3/uL Normal 0-5 [facility] Comment on above: Performed By: #### L 100.0100, L500.4050 ####[facility] [address] [place], [address] Platelet mean volume (Bld) [Entitic vol] 11.4 fL Normal 6.2-12.0 [facility] Comment on above: Performed By: #### L 100.0100, L500.4050 ####[facility] [address] [place], [address] Platelets (Bld) [#/Vol] 268 10*3/uL Normal 150-450 [facility] Comment on above: Performed By: #### L 100.0100, L500.4050 ####[facility] [address] [place], [address] RBC (Bld) [#/Vol] 4.07 10*6/uL Low 4.2-5.4 [facility] Comment on above: Performed By: #### L 100.0100, L500.4050 ####[facility] [address] [place], [address] RDW SD 42.6 fl Normal 35.1-43.9 [facility] Comment on above: Performed By: #### L 100.0100, L500.4050 ####[facility] [address] [place], [address] WBC (Bld) [#/Vol] 7.1 10*3/uL Normal 4.4-11.0 [facility] Comment on above: Performed By: #### L 100.0100, L500.4050 ####[facility] [address] [place], [address] Comprehensive Metabolic Prof ilon 08-17-2024 Albumin [Mass/Vol] 3.8 g/dL Normal 3.2-5.0 [facility] Comment on above: Performed By: #### L 100.0100, L500.4050 ####[facility] [address] [place], [address] Albumin/Globulin [Mass ratio] 0.9 {ratio} Normal 0.9-2.4 [facility] Comment on above: Performed By: #### L 100.0100, L500.4050 ####[facility] [address] [place], [address] ALK P 80 U/L Normal 45-117 [facility] Comment on above: Performed By: #### L 100.0100, L500.4050 ####[facility] [address] [place], [address] ALT [Catalytic activity/Vol] 17 U/L Normal 13-56 [facility] Comment on above: Performed By: #### L 100.0100, L500.4050 ####[facility] [address] [place], [address] AST [Catalytic activity/Vol] 7 U/L Low 15-37 [facility] Comment on above: Performed By: #### L 100.0100, L500.4050 ####[facility] [address] [place], [address] Bilirubin [Mass/Vol] 0.50 mg/dL Normal 0.20-1.00 [facility] Comment on above: Result Comment: For patients on eltrombopag therapy, use of Dimension [place] TBIL is not recommended. Performed By: #### L 100.0100, L500.4050 ####[facility] [address] [place], [address] BUN/CRE 10.2 RATIO Normal 10-20 [facility] Comment on above: Performed By: #### L 100.0100, L500.4050 ####[facility] [address] [place], [address] CA,Total 9.2 mg/dL Normal 8.5-10.1 [facility] Comment on above: Performed By: #### L 100.0100, L500.4050 ####[facility] [address] [place], [address] Chloride [Moles/Vol] 105 mmol/L Normal 98-107 [facility] Comment on above: Performed By: #### L 100.0100, L500.4050 ####[facility] [address] [place], [address] CO2 [Moles/Vol] 26.0 mmol/L Normal 21.0-32.0 [facility] Comment on above: Performed By: #### L 100.0100, L500.4050 ####[facility] [address] [place], [address] Creatinine [Mass/Vol] 0.88 mg/dL Normal 0.55-1.02 [facility] Comment on above: Result Comment: The validity of the calculated GFR GFRAA in patients over70 years has not been determined. Clinical correlation isessential. Performed By: #### L 100.0100, L500.4050 ####[facility] [address] [place], [address] EST GFR - AA 94 mL/min Normal >60 [facility] Comment on above: Result Comment: Afri can [place] Citizen GFR Calc Performed By: #### L 100.0100, L500.4050 ####[facility] [address] [place], [address] GAP 6 Normal 5-15 [facility] Comment on above: Performed By: #### L 100.0100, L500.4050 ####[facility] [address] [place], [address] GFR/1.73 sq M.predicted among non-blacks MDRD (S/P/Bld) [Vol rate/Area] 78 mL/min/{1.73_m2} Normal >60 [facility] Comment on above: Result Comment: Non- GFR Calc Performed By: #### L 100.0100, L500.4050 ####[facility] [address] [place], [address] Globulin (S) [Mass/Vol] 4.1 g/dL Normal 2.2-4.2 [facility] Comment on above: Performed By: #### L 100.0100, L500.4050 ####[facility] [address] [place], [address] Glucose [Mass/Vol] 94 mg/dL Normal 74-106 [facility] Comment on above: Performed By: #### L 100.0100, L500.4050 ####[facility] [address] [place], [address] Potassium [Moles/Vol] 3.6 mmol/L Normal 3.5-5.1 [facility] Comment on above: Performed By: #### L 100.0100, L500.4050 ####[facility] [address] [place], [address] Sodium [Moles/Vol] 137 mmol/L Normal 136-145 [facility] Comment on above: Performed By: #### L 100.0100, L500.4050 ####[facility] [address] [place], [address] T PROT 7.9 g/dL Normal 6.4-8.2 [facility] Comment on above: Performed By: #### L 100.0100, L500.4050 ####[facility] [address] [place], [address] Urea nitrogen [Mass/Vol] 9 mg/dL Normal 7-18 [facility] Comment on above: Performed By: #### L 100.0100, L500.4050 ####[facility] [address] [place], [address] Transvaginal w/Preg USon Transvaginal w/Preg US Normal [facility] hCG Titer Quant., Serumon HCG QUANT. 143 mIU/mL [address] Comment on above: Result Comment: hCG levels with Gestational AgeGestational Age hCG mIU/mL (IU/L)0.2 - 1 week 5 - 501-2 weeks 50 - 5002-3 weeks 100 - 31879-9 weeks 500 - 092077-8 weeks 1000 - 144560-7 weeks 65313 - 100,0006-8 weeks 65114 - 200,0002-3 months 81231 - 100,000 Performed By: #### L 700.8000 ####[facility] [address] [place], [place], [address] hCG Titer Quant., Serumon HCG QUANT. 91 mIU/mL [address] Comment on above: Result Comment: hCG levels with Gestational AgeGestational Age hCG mIU/mL (IU/L)0.2 - 1 week 5 - 501-2 weeks 50 - 5002-3 weeks 100 - 62052-2 weeks 500 - 201772-4 weeks 1000 - 383648-0 weeks 14563 - 100,0006-8 weeks 22542 - 200,0002-3 months 37019 - 100,000 Performed By: #### L 700.8000 ####[facility] [address] [place], [place], [address] hCG Titer Quant., Serumon HCG QUANT. 55 mIU/mL [address] Comment on above: Result Comment: hCG levels with Gestational AgeGestational Age hCG mIU/mL (IU/L)0.2 - 1 week 5 - 501-2 weeks 50 - 5002-3 weeks 100 - 06940-7 weeks 500 - 219865-1 weeks 1000 - 247187-6 weeks 28819 - 100,0006-8 weeks 31395 - 200,0002-3 months 89546 - 100,000 Performed By: #### L 700.8000 ####[facility] [address] [place], [address] MR/BMS.BPon 07-06-2024 MR/BMS.BP Normal [facility] Chest PA and Lateralon 05-24 Chest PA and Lateral Normal [facility] Visit Reporton 1 07-24-2023 Urgent Care Visit Report Normal [facility] Thyroidon 05-13-2024 Thyroid Normal [facility] MR/BMS.BPon 04-28-2024 MR/BMS.BP Normal [facility] Hepatitis B Surface Antibody Ordered By: Background Lab on 02-23-2024 HBV surface Ab Ql (S) Positive Abnormal Negative mIU/mL [facility] Comment on above: Reference value: Unv accinated: Negative Vaccinated: Positive Anti-HBs concentration detected at > or = 11.5 mIU/mL. Individual is considered to be immune to infection with HBV. Hep Bs Antibody, QN 798.00 [facility] Comment on above: Reference Value: > o r = 11.5 mIU/mL - Positive Anti-HBs concentration detected at > or = 11.5 mIU/mL. Individual is considered to be immune to infection with HBV. Interpretation and review of laboratory results Abnormal [facility] Laboratory - Chemistry and C hemistry - challengeOrdered By: Analia Kimbrough on 06-17-2023 HCG ( test) Ql (U) Negative [facility] Comment on above: Very dilute urine sp ecimens, as indicated by a low specificgravity, may not contain sales utility representative levels of hCG. If is still suspected, a first morning urinespecimen should be collected 48 hours later and tested. Basophil percentageOrdered B y: Analia Kimbrough on 06-13-2023 WBC (Bld) [#/Vol] 8.0 10*3/uL 4.4-11.0 [facility] Blood erythrocytes count (nu mber/volume)Ordered By: Aanlia Kimbrough on 06-13-2023 RBC (Bld) [#/Vol] 4.16 10*6/uL 4.2-5.4 [facility] Blood hemoglobin measurement (mass/volume)Ordered By: Analia Kimbrough on 06-13-2023 Hemoglobin (Bld) [Mass/Vol] 12.5 g/dL 12.0-15.0 [facility] Blood platelet mean volumeOr dered By: Analia Kimbrough on 06-13-2023 Platelet mean volume (Bld) [Entitic vol] 11.7 fL 6.2-12.0 [facility] Determination of erythrocyte mean corpuscular volume (MCV)Ordered By: Analia Kimbrough on 06-13-2023 MCV (RBC) [Entitic vol] 90.9 fL 81-99 [facility] Hematocrit Auto (Bld) [Volum e fraction]Ordered By: Analia Kimbrough on 06-13-2023 Hematocrit (Bld) [Volume fraction] 37.8 % 37-47 [facility] Laboratory - Hematology and Cell countsOrdered By: Analia Kimbrough on 06-13-2023 Erythrocyte distribution width (RBC) [Entitic vol] 40.6 fL 35.1-43.9 [facility] Erythrocyte distribution width (RBC) [Ratio] 12.4 % 11.6-14.6 [facility] MCH (RBC) [Entitic mass] 30.0 pg 27.0-32.0 [facility] MCHC Auto (RBC) [Mass/Vol]Or dered By: Analia Kimbrough on 06-13-2023 MCHC (RBC) [Mass/Vol] 33.1 g/dL 32-36 [facility] Platelets bldOrdered By: Gena Kimbrough on 06-13-2023 Platelets (Bld) [#/Vol] 279 10*3/uL 150-450 [facility] No Panel InformationOrdered By: [facility] [employer] on 06-05-2023 Rubella IgG Antibody Reactive Nonreactive [facility] Comment on above: Antibody Results Int erpretation of Immune Status Non Reactive Presumed Non-Immune Equivocal Equivocal Reactive Presumed Immune Serum measles virus IgG anti body assay (units/volume)Ordered By: YaKlass on 06-05-2023 MeV IgG Qn (S) 32.0 AU/mL Immune >16.4 [facility] Comment on above: Negative <13.5 Equiv ocal 13.5 - 16.4 Positive >16.4Presence of antibodies to Rubeola is presumptive evidenceof immunity except when acute infection is suspected.Performed at: [facility] [id number] Director: Joseph Doe PhD, Phone: [phone] Serum mumps virus IgG antibo dy assay (units/volume)Ordered By: [employer] on 06-05-2023 MuV IgG Qn (S) 16.1 AU/mL Immune >10.9 [facility] Comment on above: Negative <9.0 Equivo scout 9.0 - 10.9 Positive >10.9A positive result generally indicates past exposure toMumps virus or previous vaccination. Laboratory - Chemistry and C hemistry - challengeon 05-26-2023 HCG ( test) Ql (U) Negative [facility] Laboratory - Chemistry and C hemistry - challengeOrdered By: Saritha Salgado on 04-28-2023 Free T4 [Mass/Vol] 0.90 ng/dL 0.76-1.46 [facility] No Panel InformationOrdered By: Saritha Salgado on 04-28-2023 Thyroid Stimulating Hormone (TSH) 1.16 uIU/mL 0.358-3.74 [facility] Serum or plasma thyroperoxid ase antibody assay (units/volume)Ordered By: Saritha Salgado on 04-28-2023 TPO Ab Qn 23 [IU]/mL 0-34 [facility] Comment on above: Performed at: [address] Director: Joseph Doe PhD, Phone: [phone] Serum or plasma choriogonado tropin detectionOrdered By: Saritha Salgado on 03-18-2023 HCG ( test) Ql 3 mIU/mL <4 [facility] Comment on above: hCG levels with Gest ational AgeGestational Age hCG mIU/mL (IU/L)0.2 - 1 week 5 - 501-2 weeks 50 - 5002-3 weeks 100 - 43621-3 weeks 500 - 329590-7 weeks 1000 - 067918-7 weeks 88106 - 100,0006-8 weeks 74479 - 200,0002-3 months 44503 - 100,000 Serum or plasma choriogonado tropin detectionOrdered By: Saritha Salgado on 03-12-2023 HCG ( test) Ql 4 mIU/mL <4 [facility] Comment on above: hCG levels with Gest ational AgeGestational Age hCG mIU/mL (IU/L)0.2 - 1 week 5 - 501-2 weeks 50 - 5002-3 weeks 100 - 16479-2 weeks 500 - 395864-5 weeks 1000 - 586107-9 weeks 83714 - 100,0006-8 weeks 96641 - 200,0002-3 months 46093 - 100,000 Absolute lymphocyte countOrd ered By: Karey Street on 03-05-2023 Lymphocytes Auto (Unsp spec) [#/Vol] 2.30 10*3/uL 0.83-4.51 [facility] Basophil percentageOrdered B y: Karey Street on 03-05-2023 Basophils/100 WBC (Bld) 0.6 % 0-1 [facility] Eosinophils/100 WBC (Bld) 2.2 % 0-5 [facility] Neutrophils (Bld) [#/Vol] 4.1 10*3/uL 2.0-7.7 [facility] Neutrophils/100 WBC (Bld) 57.4 % 47-70 [facility] WBC (Bld) [#/Vol] 7.2 10*3/uL 4.4-11.0 [facility] Blood erythrocytes count (nu mber/volume)Ordered By: Karey Street on 03-05-2023 RBC (Bld) [#/Vol] 3.84 10*6/uL 4.2-5.4 [facility] Blood hemoglobin measurement (mass/volume)Ordered By: Karey Street on 03-05-2023 Hemoglobin (Bld) [Mass/Vol] 11.5 g/dL 12.0-15.0 [facility] Blood lymphocytes/100 leukoc ytesOrdered By: Karey Street on 03-05-2023 Lymphocytes/100 WBC (Bld) 32.0 % 19-41 [facility] Blood monocytes/100 leukocyt esOrdered By: Karey Street on 03-05-2023 Monocytes/100 WBC (Bld) 7.5 % 0-10 [facility] Blood platelet mean volumeOr dered By: Karey Street on 03-05-2023 Platelet mean volume (Bld) [Entitic vol] 12.0 fL 6.2-12.0 [facility] Determination of erythrocyte mean corpuscular volume (MCV)Ordered By: Karey Street on 03-05-2023 MCV (RBC) [Entitic vol] 94.3 fL 81-99 [facility] Hematocrit Auto (Bld) [Volum e fraction]Ordered By: Karey Street on 03-05-2023 Hematocrit (Bld) [Volume fraction] 36.2 % 37-47 [facility] Laboratory - Hematology and Cell countsOrdered By: Karey Street on 03-05-2023 Erythrocyte distribution width (RBC) [Entitic vol] 43.8 fL 35.1-43.9 [facility] Erythrocyte distribution width (RBC) [Ratio] 12.9 % 11.6-14.6 [facility] Immature granulocytes/100 WBC (Bld) 0.300 % 0.0-0.9 [facility] Comment on above: IG% - Immature Granu locytes (promyelocytes, myelocytes and metamyelocytes) > 1% indicates that a LEFT SHIFT is Present. MCH (RBC) [Entitic mass] 29.9 pg 27.0-32.0 [facility] Nucleated RBC/100 WBC (Bld) [Ratio] 0 % 0-5 [facility] MCHC Auto (RBC) [Mass/Vol]Or dered By: Karey Street on 03-05-2023 MCHC (RBC) [Mass/Vol] 31.8 g/dL 32-36 [facility] Platelets bldOrdered By: Black Street on 03-05-2023 Platelets (Bld) [#/Vol] 279 10*3/uL 150-450 [facility] Serum or plasma choriogonado tropin detectionOrdered By: Karey Street on 03-05-2023 HCG ( test) Ql 7 mIU/mL <4 [facility] Serum or plasma choriogonado tropin detectionOrdered By: Karey Street on 02-19-2023 HCG ( test) Ql 36 mIU/mL <4 [facility] Comment on above: hCG levels with Gest ational AgeGestational Age hCG mIU/mL (IU/L)0.2 - 1 week 5 - 501-2 weeks 50 - 5002-3 weeks 100 - 08802-1 weeks 500 - 187737-7 weeks 1000 - 701906-5 weeks 58901 - 100,0006-8 weeks 74153 - 200,0002-3 months 18362 - 100,000 Serum or plasma choriogonado tropin detectionOrdered By: Karey Street on 02-12-2023 HCG ( test) Ql 77 mIU/mL <4 [facility] Comment on above: hCG levels with Gest ational AgeGestational Age hCG mIU/mL (IU/L)0.2 - 1 week 5 - 501-2 weeks 50 - 5002-3 weeks 100 - 07388-1 weeks 500 - 202317-3 weeks 1000 - 565846-1 weeks 76108 - 100,0006-8 weeks 48632 - 200,0002-3 months 17489 - 100,000 Serum or plasma choriogonado tropin detectionOrdered By: Saritha Salgado on 02-05-2023 HCG ( test) Ql 154 mIU/mL <4 [facility] Comment on above: hCG levels with Gest ational AgeGestational Age hCG mIU/mL (IU/L)0.2 - 1 week 5 - 501-2 weeks 50 - 5002-3 weeks 100 - 15997-6 weeks 500 - 116316-1 weeks 1000 - 371878-4 weeks 69063 - 100,0006-8 weeks 48061 - 200,0002-3 months 39398 - 100,000 Serum or plasma choriogonado tropin detectionOrdered By: Saritha Salgado on 01-29-2023 HCG ( test) Ql 361 mIU/mL <4 [facility] Comment on above: hCG levels with Gest ational AgeGestational Age hCG mIU/mL (IU/L)0.2 - 1 week 5 - 501-2 weeks 50 - 5002-3 weeks 100 - 67846-9 weeks 500 - 930967-3 weeks 1000 - 117558-4 weeks 32026 - 100,0006-8 weeks 92306 - 200,0002-3 months 55247 - 100,000 Serum or plasma choriogonado tropin detectionOrdered By: Saritha Salgado on 01-26-2023 HCG ( test) Ql 474 mIU/mL <4 [facility] Comment on above: hCG levels with Gest ational AgeGestational Age hCG mIU/mL (IU/L)0.2 - 1 week 5 - 501-2 weeks 50 - 5002-3 weeks 100 - 34353-1 weeks 500 - 857550-6 weeks 1000 - 569044-3 weeks 03659 - 100,0006-8 weeks 39791 - 200,0002-3 months 66936 - 100,000 Absolute lymphocyte countOrd ered By: Saritha Salgado on 01-23-2023 Lymphocytes Auto (Unsp spec) [#/Vol] 2.41 10*3/uL 0.83-4.51 [facility] Basophil percentageOrdered B y: Saritha Salgado on 01-23-2023 Basophils/100 WBC (Bld) 0.9 % 0-1 [facility] Bilirubin [Mass/Vol] 0.40 mg/dL 0.20-1.00 [facility] Comment on above: For patients on eltr ombopag therapy, use of Dimension [place] TBIL is not recommended. Chloride [Moles/Vol] 105 mmol/L 98-107 [facility] Eosinophils/100 WBC (Bld) 1.8 % 0-5 [facility] Glucose [Mass/Vol] 96 mg/dL 74-106 [facility] Neutrophils (Bld) [#/Vol] 3.6 10*3/uL 2.0-7.7 [facility] Neutrophils/100 WBC (Bld) 54.0 % 47-70 [facility] Potassium [Moles/Vol] 3.9 mmol/L 3.5-5.1 [facility] Protein [Mass/Vol] 7.9 g/dL 6.4-8.2 [facility] Sodium [Moles/Vol] 137 mmol/L 136-145 [facility] WBC (Bld) [#/Vol] 6.7 10*3/uL 4.4-11.0 [facility] Blood erythrocytes count (nu mber/volume)Ordered By: Saritha Salgado on 01-23-2023 RBC (Bld) [#/Vol] 4.09 10*6/uL 4.2-5.4 [facility] Blood hemoglobin measurement (mass/volume)Ordered By: Saritha Salgado on 01-23-2023 Hemoglobin (Bld) [Mass/Vol] 12.4 g/dL 12.0-15.0 [facility] Blood lymphocytes/100 leukoc ytesOrdered By: Saritha Salgado on 01-23-2023 Lymphocytes/100 WBC (Bld) 35.9 % 19-41 [facility] Blood monocytes/100 leukocyt esOrdered By: Saritha Salgado on 01-23-2023 Monocytes/100 WBC (Bld) 7.3 % 0-10 [facility] Blood platelet mean volumeOr dered By: Saritha Salgado on 01-23-2023 Platelet mean volume (Bld) [Entitic vol] 11.6 fL 6.2-12.0 [facility] Determination of erythrocyte mean corpuscular volume (MCV)Ordered By: Saritha Salgado on 01-23-2023 MCV (RBC) [Entitic vol] 91.0 fL 81-99 [facility] Hematocrit Auto (Bld) [Volum e fraction]Ordered By: Saritha Salgado on 01-23-2023 Hematocrit (Bld) [Volume fraction] 37.2 % 37-47 [facility] Laboratory - Chemistry and C hemistry - challengeOrdered By: Saritha Salgado on 01-23-2023 ALP [Catalytic activity/Vol] 82 U/L 45-117 [facility] ALT [Catalytic activity/Vol] 17 U/L 13-56 [facility] CO2 [Moles/Vol] 28.0 mmol/L 21.0-32.0 [facility] Globulin (S) [Mass/Vol] 4.0 g/dL 2.2-4.2 [facility] Urea nitrogen/Creatinine [Mass ratio] 11.0 mg/mg 10-20 [facility] - Hematology and Cell countsOrdered By: Saritha Salgado on 01-23-2023 Erythrocyte distribution width (RBC) [Entitic vol] 40.2 fL 35.1-43.9 [facility] Erythrocyte distribution width (RBC) [Ratio] 12.1 % 11.6-14.6 [facility] Immature granulocytes/100 WBC (Bld) 0.100 % 0.0-0.9 [facility] Comment on above: IG% - Immature Granu locytes (promyelocytes, myelocytes and metamyelocytes) > 1% indicates that a LEFT SHIFT is Present. MCH (RBC) [Entitic mass] 30.3 pg 27.0-32.0 [facility] Nucleated RBC/100 WBC (Bld) [Ratio] 0 % 0-5 [facility] Auto (RBC) [Mass/Vol]Or dered By: Saritha Salgado on 01-23-2023 MCHC (RBC) [Mass/Vol] 33.3 g/dL 32-36 [facility] No Panel InformationOrdered By: Saritha Salgado on 01-23-2023 Estimated GFR (MDRD) Amer 119 mL/min >60 [facility] Comment on above: GFR Calc Estimated GFR (MDRD) Non-Af Amer 99 mL/min >60 [facility] Comment on above: Non- GFR Calc Platelets bldOrdered By: Demario Salgado on 01-23-2023 Platelets (Bld) [#/Vol] 272 10*3/uL 150-450 [facility] Serum or plasma albumin rachel urement (mass/volume)Ordered By: Saritha Salgado on 01-23-2023 Albumin [Mass/Vol] 3.9 g/dL 3.2-5.0 [facility] Serum or plasma albumin/glob ulin mass ratioOrdered By: Saritha Salgado on 01-23-2023 Albumin/Globulin [Mass ratio] 1.0 {ratio} 0.9-2.4 [facility] Serum or plasma calcium rachel urement (mass/volume)Ordered By: Saritha Salgado on 01-23-2023 Calcium [Mass/Vol] 8.9 mg/dL 8.5-10.1 [facility] Serum or plasma choriogonado tropin detectionOrdered By: Saritha Salgado on 01-23-2023 HCG ( test) Ql 407 mIU/mL <4 [facility] Comment on above: hCG levels with Gest ational AgeGestational Age hCG mIU/mL (IU/L)0.2 - 1 week 5 - 501-2 weeks 50 - 5002-3 weeks 100 - 27701-9 weeks 500 - 904683-3 weeks 1000 - 487237-7 weeks 36590 - 100,0006-8 weeks 85341 - 200,0002-3 months 64873 - 100,000 Serum or plasma creatinine m easurement (mass/volume)Ordered By: Saritha Salgado on 01-23-2023 Creatinine [Mass/Vol] 0.73 mg/dL 0.55-1.02 [facility] Comment on above: The validity of the calculated GFR & GFRAA in patients over 70 years has not been determined. Clinical correlation is essential. Serum or plasma urea nitroge n measurement (mass/volume)Ordered By: Saritha Salgado on 01-23-2023 Urea nitrogen [Mass/Vol] 8 mg/dL 7-18 [facility] Thin prep Papanicolaou smear with manual screeningOrdered By: Saritha Salgado on 01-23-2023 Thin prep Papanicolaou smear with manual screening 17 U/L 15-37 [facility] Thin prep Papanicolaou smear with manual screening 4 5-15 [facility] Serum or plasma choriogonado tropin detectionOrdered By: Saritha Salgado on 01-22-2023 HCG ( test) Ql 321 mIU/mL <4 [facility] Comment on above: hCG levels with Gest ational AgeGestational Age hCG mIU/mL (IU/L)0.2 - 1 week 5 - 501-2 weeks 50 - 5002-3 weeks 100 - 64952-6 weeks 500 - 865897-5 weeks 1000 - 999488-3 weeks 60482 - 100,0006-8 weeks 16640 - 200,0002-3 months 99544 - 100,000 Serum or plasma choriogonado tropin detectionOrdered By: Saritha Salgado on 01-20-2023 HCG ( test) Ql 233 mIU/mL <4 [facility] Comment on above: hCG levels with Gest ational AgeGestational Age hCG mIU/mL (IU/L)0.2 - 1 week 5 - 501-2 weeks 50 - 5002-3 weeks 100 - 04038-7 weeks 500 - 647961-7 weeks 1000 - 661872-6 weeks 11482 - 100,0006-8 weeks 28181 - 200,0002-3 months 66988 - 100,000 Dilute David's viper venom timeOrdered By: Saritha Salgado on 01-16-2023 dRVVT Coag (PPP) [Time] 38.6 s 0.0-47.0 [facility] No Panel InformationOrdered By: Saritha Salgado on 01-16-2023 Anti-Cardiolipin IgM Antibody < 9 MPL U/mL 0-12 [facility] Comment on above: Negative: <13 Indete rminate: 13 - 20 Low-Med Positive: >20 - 80 High Positive: >80 Serum beta 2 glycoprotein 1 IgA antibody detectionOrdered By: Saritha Salgado on 01-16-2023 Beta 2 glycoprotein 1 IgA Ql (S) <9 0-25 [facility] Comment on above: Result Units: GPI [...] glycoprotein 1 IgG Ql (S) <9 0-20 [facility] Comment on above: Result Units: GPI [...] glycoprotein 1 IgM Ql (S) <9 0-32 [facility] Comment on above: Result Units: GPI Ig M unitsThe reference interval reflects a 3SD or 99th percentileinterval, which is thought to represent a potentiallyclinically significant result in accordance with theInternational Consensus Statement on the classificationcriteria for definitive antiphospholipid syndrome (APS). JThromb Haem 2006;4:295-306.Performed at: [facility] [address] [id number] Director: Nae Mendiola MD, Phone: [phone] at: [facility] [address] [id number] Director: Joseph Doe PhD, Phone: [phone] Serum cardiolipin IgG antibo dy assay by immunoassay (units/volume)Ordered By: Saritha Salgado on 01-16-2023 Cardiolipin IgG IA Qn (S) < 9 GPL U/mL 0-14 [facility] Comment on above: Negative: <15 Indete rminate: 15 - 20 Low-Med Positive: >20 - 80 High Positive: >80 Serum or plasma cardiolipin IgA antibody assay (units/volume)Ordered By: Saritha Salgado on 01-16-2023 Cardiolipin IgA Qn < 9 APL U/mL 0-11 [facility] Comment on above: Negative: <12 Indete rminate: 12 - 20 Low-Med Positive: >20 - 80 High Positive: >80 Thin prep Papanicolaou smear with manual screeningOrdered By: Saritha Salgado on 01-16-2023 Thin prep Papanicolaou smear with manual screening 37.8 sec 0.0-47.6 [facility] Thin prep Papanicolaou smear with manual screening 0.97 Ratio 0.00-1.34 [facility] Thin prep Papanicolaou smear with manual screening 35.1 sec 0.0-43.5 [facility] Thin prep Papanicolaou smear with manual screening Comment: . [facility] Comment on above: No lupus anticoagula nt was detected. Thrombin time in platelet po or plasmaOrdered By: Saritha Salgado on 01-16-2023 Thrombin time Coag (PPP) [Time] 17.0 sec 0.0-23.0 [facility] Serum or plasma choriogonado tropin detectionOrdered By: Saritha Salgado on 01-14-2023 HCG ( test) Ql 154 mIU/mL <4 [facility] Comment on above: hCG levels with Gest ational AgeGestational Age hCG mIU/mL (IU/L)0.2 - 1 week 5 - 501-2 weeks 50 - 5002-3 weeks 100 - 06932-7 weeks 500 - 349473-3 weeks 1000 - 885002-0 weeks 11418 - 100,0006-8 weeks 31503 - 200,0002-3 months 73778 - 100,000 Serum or plasma choriogonado tropin detectionOrdered By: Saritha Salgado on 01-12-2023 HCG ( test) Ql 122 mIU/mL <4 [facility] Comment on above: hCG levels with Gest ational AgeGestational Age hCG mIU/mL (IU/L)0.2 - 1 week 5 - 501-2 weeks 50 - 5002-3 weeks 100 - 76430-2 weeks 500 - 732811-9 weeks 1000 - 937183-7 weeks 56598 - 100,0006-8 weeks 99392 - 200,0002-3 months 45255 - 100,000 Serum or plasma choriogonado tropin detectionOrdered By: Karey Street on 11-04-2022 HCG ( test) Ql < 1 mIU/mL <4 [facility] Comment on above: hCG levels with Gest ational AgeGestational Age hCG mIU/mL (IU/L)0.2 - 1 week 5 - 501-2 weeks 50 - 5002-3 weeks 100 - 55145-7 weeks 500 - 357092-4 weeks 1000 - 232637-6 weeks 50323 - 100,0006-8 weeks 64280 - 200,0002-3 months 70100 - 100,000 Serum or plasma choriogonado tropin detectionOrdered By: Dr. Kimbrough on 10-31-2022 HCG ( test) Ql < 1 mIU/mL <4 [facility] Comment on above: hCG levels with Gest ational AgeGestational Age hCG mIU/mL (IU/L)0.2 - 1 week 5 - 501-2 weeks 50 - 5002-3 weeks 100 - 86999-1 weeks 500 - 519063-3 weeks 1000 - 351496-4 weeks 76932 - 100,0006-8 weeks 72267 - 200,0002-3 months 78766 - 100,000 Laboratory - Microbiology an d Antimicrobial susceptibilityon 09-23-2022 SARS-CoV-2 (COVID-19) RNA MAE+probe Ql (Unsp spec) Not detected [facility] No Panel Informationon 09-23 POC Nasal Swab Influenza A,B Not detected [facility] POC Nasal Swab RSV Not detected [facility] No Panel Informationon 05-24 Miscellaneous Test Comment MAILED SPECIMEN [facility] Work Phone: Laboratory - Chemistry and C hemistry - challengeon 04-15-2022 Free T4 [Mass/Vol] 0.91 ng/dL 0.76-1.46 [facility] Work Phone: No Panel Informationon 04-15 Thyroid Stimulating Hormone (TSH) 0.99 uIU/mL 0.358-3.74 [facility] Work Phone: Serum or plasma thyroperoxid ase antibody assay (units/volume)on 04-15-2022 TPO Ab Qn 15 [IU]/mL 0-34 [facility] Work Phone: Comment on above: Performed at: [facility] [address] [id number] Director: Joseph Deo PhD, Phone: [phone] Basophil percentageon 2021 WBC (Bld) [#/Vol] 9.9 10*3/uL 4.4-11.0 [facility] Work Phone: Blood erythrocytes count (nu mber/volume)on 02-26-2022 RBC (Bld) [#/Vol] 3.04 10*6/uL 4.2-5.4 [facility] Work Phone: Blood hemoglobin measurement (mass/volume)on 02-26-2022 Hemoglobin (Bld) [Mass/Vol] 9.6 g/dL 12.0-15.0 [facility] Work Phone: Blood platelet mean volumeon 02-26-2022 Platelet mean volume (Bld) [Entitic vol] 11.4 fL 6.2-12.0 [facility] Work Phone: Determination of erythrocyte mean corpuscular volume (MCV)on 02-26-2022 MCV (RBC) [Entitic vol] 94.4 fL 81-99 [facility] Work Phone: Dilute David's viper venom timeon 02-26-2022 dRVVT Coag (PPP) [Time] 32.2 s 0.0-47.0 [facility] Work Phone: Hematocrit Auto (Bld) [Volum e fraction]on 02-26-2022 Hematocrit (Bld) [Volume fraction] 28.7 % 37-47 [facility] Work Phone: Laboratory - Hematology and Cell countson 02-26-2022 Erythrocyte distribution width (RBC) [Entitic vol] 48.1 fL 35.1-43.9 [facility] Work Phone: Erythrocyte distribution width (RBC) [Ratio] 14.7 % 11.6-14.6 [facility] Work Phone: MCH (RBC) [Entitic mass] 31.6 pg 27.0-32.0 [facility] Work Phone: MCHC Auto (RBC) [Mass/Vol]on 02-26-2022 MCHC (RBC) [Mass/Vol] 33.4 g/dL 32-36 [facility] Work Phone: No Panel Informationon 02-26 Anti-Cardiolipin IgM Antibody < 9 MPL U/mL 0-12 [facility] Work Phone: Comment on above: Negative: <13 Indete rminate: 13 - 20 Low-Med Positive: >20 - 80 High Positive: >80 Thyroid Stimulating Hormone (TSH) 1.80 uIU/mL 0.358-3.74 [facility] Work Phone: Toxoplasma Comment Comment . [facility] Work Phone: Comment on above: It is presumed the p atient has not been infected with andis not undergoing an acute infection with Toxoplasma. Ifsymptoms persist, submit a new specimen after three weeks. Platelets bldon 02-26-2022 Platelets (Bld) [#/Vol] 175 10*3/uL 150-450 [facility] Work Phone: Serum Parvovirus B19 IgG ant ibody assay by immunoassay (units/volume)on 02-26-2022 Parvovirus B19 IgG IA Qn (S) 0.6 index 0.0-0.8 [facility] Work Phone: Comment on above: Negative <0.9 Equivo scout 0.9 - 1.1 Positive >1.1 Serum Parvovirus B19 IgM ant ibody assay by immunoassay (units/volume)on 02-26-2022 Parvovirus B19 IgM IA Qn (S) 0.3 index 0.0-0.8 [facility] Work Phone: Comment on above: Negative <0.9 Equivo scout 0.9 - 1.1 Positive >1.1 Serum Toxoplasma gondii IgG antibody assay (units/volume)on 02-26-2022 T. gondii IgG Qn (S) < 3.0 IU/mL 0.0-7.1 [facility] Work Phone: Comment on above: Negative <7.2 Equivo scout 7.2 - 8.7 Positive >8.7Performed at: [id number] [place], [place] [id number] Director: Joseph Doe PhD, Phone: [phone] Serum Toxoplasma gondii IgM antibody assay by immunoassay (units/volume)on 02-26-2022 T. gondii IgM IA Qn (S) < 3.0 AU/mL 0.0-7.9 [facility] Work Phone: Comment on above: Negative <8.0 Equivo scout 8.0 - 9.9 Positive >9.9 Serum beta 2 glycoprotein 1 IgA antibody detectionon 02-26-2022 Beta 2 glycoprotein 1 IgA Ql (S) <9 0-25 [facility] Work Phone: Comment on above: Result [...] glycoprotein 1 IgG Ql (S) <9 0-20 [facility] Work Phone: Comment on above: Result [...] glycoprotein 1 IgM Ql (S) <9 0-32 [facility] Work Phone: Comment on above: Result [...] Qn (S) < 9 GPL U/mL 0-14 [facility] Work Phone: Comment on above: Negative: <15 Indete rminate: 15 - 20 Low-Med Positive: >20 - 80 High Positive: >80 Serum or plasma cardiolipin IgA antibody assay (units/volume)on 02-26-2022 Cardiolipin IgA Qn < 9 APL U/mL 0-11 [facility] Work Phone: Comment on above: Negative: <12 Indete rminate: 12 - 20 Low-Med Positive: >20 - 80 High Positive: >80 Serum or plasma cytomegalovi jong (CMV) IgG antibody assay (units/volume)on 02-26-2022 CMV IgG Qn < 0.60 U/mL 0.00-0.59 [facility] Work Phone: Comment on above: Negative <0.60 Equiv ocal 0.60 - 0.69 Positive >0.69 Serum or plasma cytomegalovi jong (CMV) IgM antibody assay (units/volume)on 02-26-2022 CMV IgM Qn < 30.0 AU/mL 0.0-29.9 [facility] Work Phone: Comment on above: Negative <30.0 Equiv ocal 30.0 - 34.9 Positive >34.9A positive result is generally indicative of acuteinfection, reactivation or persistent IgM production.Performed at: [address] [id number] Director: Nae Mendiola MD, Phone: [phone] at: [address] [id number] Director: Joseph Doe PhD, Phone: [phone] Thin prep Papanicolaou smear with manual screeningon 02-26-2022 Thin prep Papanicolaou smear with manual screening 34.7 sec 0.0-47.6 [facility] Work Phone: Thin prep Papanicolaou smear with manual screening 1.19 Ratio 0.00-1.34 [facility] Work Phone: Thin prep Papanicolaou smear with manual screening 37.1 sec 0.0-51.9 [facility] Work Phone: Thin prep Papanicolaou smear with manual screening Comment: . [facility] Work Phone: Comment on above: No lupus anticoagula nt was detected. Thrombin time in platelet po or plasmaon 02-26-2022 Thrombin time Coag (PPP) [Time] 17.0 sec 0.0-23.0 [facility] Work Phone: Whole blood hemoglobin A1c/t otal hemoglobin ratio (mass fraction)on 02-26-2022 HbA1c (Bld) [Mass fraction] % 3.8-5.6 [facility] Work Phone: Comment on above: Normal < 5.7 % Predi abetic 5.7 - 6.4 % Diabetic >or= 6.5 % Please note range changes. INR in Blood by Coagulation assayon 02-25-2022 INR Coag (Bld) [Relative time] 1.1 {INR} [facility] Work Phone: Laboratory - Coagulationon 0 02-25-2022 aPTT Coag (Bld) [Time] 27.7 s 24.1-36.2 [facility] Work Phone: PT Coag (PPP) [Time] 14.1 s 11.7-14.9 [facility] Work Phone: No Panel Informationon 02-25 Fibrinogen 320 mg/dl 203-444 [facility] Work Phone: Kleihauer-Betke Hemoglobin (L Positive [facility] Work Phone: Comment on above: Kleihauer Betke Stud y Reference: Negative POSITIVE AB* Feto-maternal hemorrhage ( RBCs): 127.5 mL. TESTING PERFORMED AT [facility]. ORIGINAL REPORT ON FILE IN LAB CONTAINS ADDITIONAL TEST SITE INFORMATION. ____ Laboratory - Chemistry and C hemistry - challengeon 02-22-2022 Glucose Ql (U) Negative [facility] Work Phone: Laboratory - Urinalysison Protein Ql (U) Negative [facility] Work Phone: Absolute lymphocyte counton 02-18-2022 Lymphocytes Auto (Unsp spec) [#/Vol] 1.57 10*3/uL 0.83-4.51 [facility] Work Phone: Basophil percentageon 2021 Basophils/100 WBC (Bld) 0.4 % 0-1 [facility] Work Phone: Eosinophils/100 WBC (Bld) 0.6 % 0-5 [facility] Work Phone: Neutrophils (Bld) [#/Vol] 4.9 10*3/uL 2.0-7.7 [facility] Work Phone: Neutrophils/100 WBC (Bld) 69.7 % 47-70 [facility] Work Phone: WBC (Bld) [#/Vol] 7.1 10*3/uL 4.4-11.0 [facility] Work Phone: Blood erythrocytes count (nu mber/volume)on 02-18-2022 RBC (Bld) [#/Vol] 3.42 10*6/uL 4.2-5.4 [facility]: Blood hemoglobin measurement (mass/volume)on 02-18-2022 Hemoglobin (Bld) [Mass/Vol] 10.7 g/dL 12.0-15.0 [facility] Work Phone: Blood lymphocytes/100 leukoc yteson 02-18-2022 Lymphocytes/100 WBC (Bld) 22.2 % 19-41 [facility] Work Phone: Blood monocytes/100 leukocyt eson 02-18-2022 Monocytes/100 WBC (Bld) 6.4 % 0-10 [facility] Work Phone: Blood platelet mean volumeon 02-18-2022 Platelet mean volume (Bld) [Entitic vol] 11.5 fL 6.2-12.0 [facility] Work Phone: Determination of erythrocyte mean corpuscular volume (MCV)on 02-18-2022 MCV (RBC) [Entitic vol] 93.6 fL 81-99 [facility] Work Phone: Hematocrit Auto (Bld) [Volum e fraction]on 02-18-2022 Hematocrit (Bld) [Volume fraction] 32.0 % 37-47 [facility] Work Phone: Laboratory - Hematology and Cell countson 02-18-2022 Erythrocyte distribution width (RBC) [Entitic vol] 47.8 fL 35.1-43.9 [facility] Work Phone: Erythrocyte distribution width (RBC) [Ratio] 14.5 % 11.6-14.6 [facility] Work Phone: Immature granulocytes/100 WBC (Bld) 0.700 % 0.0-0.9 [facility] Work Phone: Comment on above: IG% - Immature Granu locytes (promyelocytes, myelocytes and metamyelocytes) > 1% indicates that a LEFT SHIFT is Present. MCH (RBC) [Entitic mass] 31.3 pg 27.0-32.0 [facility] Work Phone: Nucleated RBC/100 WBC (Bld) [Ratio] 0 % 0-5 [facility] Work Phone: MCHC Auto (RBC) [Mass/Vol]on 02-18-2022 MCHC (RBC) [Mass/Vol] 33.4 g/dL 32-36 [facility] Work Phone: Platelets bldon 02-18-2022 Platelets (Bld) [#/Vol] 166 10*3/uL 150-450 [facility] Work Phone: Laboratory - Chemistry and C hemistry - challengeon 02-15-2022 Glucose Ql (U) Negative [facility] Work Phone: Laboratory - Urinalysison Protein Ql (U) Negative [facility] Work Phone: Laboratory - Chemistry and C hemistry - challengeon 02-01-2022 Glucose Ql (U) Negative [facility] Work Phone: Laboratory - Urinalysison Protein Ql (U) Negative [facility] Work Phone: Laboratory - Chemistry and C hemistry - challengeon 01-18-2022 Glucose Ql (U) Negative [facility] Work Phone: Laboratory - Urinalysison Protein Ql (U) Negative [facility] Work Phone: Laboratory - Microbiology an d Antimicrobial susceptibilityon 01-13-2022 SARS-CoV-2 (COVID-19) RNA MAE+probe Ql (Unsp spec) Detected [facility] Work Phone: No Panel Informationon 01-13 Influenza Types A,B Rapid (Clinic) Not detected [facility] Work Phone: Laboratory - Microbiology an d Antimicrobial susceptibilityon 01-06-2022 SARS-CoV-2 (COVID-19) RNA MAE+probe Ql (Unsp spec) Not detected [facility] Work Phone: No Panel Informationon 01-06 POC Nasal Swab Influenza A,B Not detected [facility] Work Phone: POC Nasal Swab RSV Not detected [facility] Work Phone: Basophil percentageon 2021 WBC (Bld) [#/Vol] 7.7 10*3/uL 4.4-11.0 [facility] Work Phone: Blood erythrocytes count (nu mber/volume)on 12-07-2021 RBC (Bld) [#/Vol] 3.23 10*6/uL 4.2-5.4 [facility] Work Phone: Blood hemoglobin measurement (mass/volume)on 12-07-2021 Hemoglobin (Bld) [Mass/Vol] 10.3 g/dL 12.0-15.0 [facility] Work Phone: Blood platelet mean volumeon 12-07-2021 Platelet mean volume (Bld) [Entitic vol] 11.4 fL 6.2-12.0 [facility] Work Phone: Determination of erythrocyte mean corpuscular volume (MCV)on 12-07-2021 MCV (RBC) [Entitic vol] 94.7 fL 81-99 [facility] Work Phone: Gestational diabetes screen 1-hour screen with 50g oral glucose loadon 12-07-2021 Glucose 1 Hr post 50 g glucose PO [Mass/Vol] 145 mg/dL 70-140 [facility] Work Phone: Hematocrit Auto (Bld) [Volum e fraction]on 12-07-2021 Hematocrit (Bld) [Volume fraction] 30.6 % 37-47 [facility] Work Phone: Laboratory - Hematology and Cell countson 12-07-2021 Erythrocyte distribution width (RBC) [Entitic vol] 42.0 fL 35.1-43.9 [facility] Work Phone: Erythrocyte distribution width (RBC) [Ratio] 12.1 % 11.6-14.6 [facility] Work Phone: MCH (RBC) [Entitic mass] 31.9 pg 27.0-32.0 [facility] Work Phone: MCHC Auto (RBC) [Mass/Vol]on 12-07-2021 MCHC (RBC) [Mass/Vol] 33.7 g/dL 32-36 [facility] Work Phone: Platelets bldon 12-07-2021 Platelets (Bld) [#/Vol] 240 10*3/uL 150-450 [facility] Work Phone: Laboratory - Hematology and Cell countson 11-27-2021 Hematocrit (Bld) [Volume fraction] 30.6 % [facility] Work Phone: MCV (RBC) [Entitic vol] 94.7 fL [facility] Work Phone: No Panel Informationon 11-27 Platelet Count (Clinic) 240 g/gL [facility] Work Phone: Iron measurement (mass/mass) on 09-07-2021 Iron (Unsp spec) [Mass/Mass] 47 ug/dL 50-170 [facility] Work Phone: No Panel Informationon 09-07 Total Iron Binding Capacity 342 ug/dL 250-450 [facility] Work Phone: Serum or plasma ferritin lakshmi surement (mass/volume)on 09-07-2021 Ferritin [Mass/Vol] 19 ng/mL 8-252 [facility] Work Phone: Basophil percentageon 2021 Chloride [Moles/Vol] 102 mmol/L 98-[address] [facility] Work Phone: Glucose [Mass/Vol] 78 mg/dL 74-106 [facility] Work Phone: Potassium [Moles/Vol] 3.6 mmol/L 3.5-5.1 [facility] Work Phone: Sodium [Moles/Vol] 135 mmol/L 136-145 [facility] Work Phone: Laboratory - Chemistry and C hemistry - challengeon 08-22-2021 CO2 [Moles/Vol] 27.0 mmol/L 21.0-32.0 [facility] Work Phone: Urea nitrogen/Creatinine [Mass ratio] 18.7 mg/mg 10-20 [facility] Work Phone: No Panel Informationon 08-22 Estimated GFR (MDRD) Amer 127 mL/min >60 [facility] Work Phone: Comment on above: GFR Calc Estimated GFR (MDRD) Non-Af Amer 105 mL/min >60 [facility] Work Phone: Comment on above: Non- GFR Calc Serum or plasma calcium rachel urement (mass/volume)on 08-22-2021 Calcium [Mass/Vol] 8.9 mg/dL 8.5-10.1 [facility] Work Phone: Serum or plasma creatinine m easurement (mass/volume)on 08-22-2021 Creatinine [Mass/Vol] 0.70 mg/dL 0.55-1.02 [facility] Work Phone: Comment on above: The validity of the calculated GFR & GFRAA in patients over 70 years has not been determined. Clinical correlation is essential. Serum or plasma urea nitroge n measurement (mass/volume)on 08-22-2021 Urea nitrogen [Mass/Vol] 13 mg/dL 7-18 [facility] Work Phone: Thin prep Papanicolaou smear with manual screeningon 08-22-2021 Thin prep Papanicolaou smear with manual screening 6 5-15 [facility] Work Phone: Basophil percentageon 2021 Chloride [Moles/Vol] 104 mmol/L 98-107 [facility] Work Phone: Glucose [Mass/Vol] 87 mg/dL 74-106 [facility] Work Phone: Potassium [Moles/Vol] 3.7 mmol/L 3.5-5.1 [facility] Work Phone: Sodium [Moles/Vol] 136 mmol/L 136-145 [facility] Work Phone: Basophil percentage 10-25 SEEN /hpf [facility] Work Phone: Bilirubin Test strip Ql (U)o n 08-20-2021 Bilirubin Ql (U) Negative Negative [facility] Work Phone: Culture, urineon 08-20-2021 Bacteria identified Cx Nom (U) Positive [facility] Work Phone: Ketones Test strip Ql (U)on 08-20-2021 Ketones Ql (U) 50 mg/dl Negative [facility] Work Phone: Laboratory - Chemistry and C hemistry - challengeon 08-20-2021 CO2 [Moles/Vol] 27.0 mmol/L 21.0-32.0 [facility] Work Phone: Urea nitrogen/Creatinine [Mass ratio] 16.4 mg/mg 10-20 [facility] Work Phone: Mucus LM Ql (Urine sed)on Mucus Ql (Urine sed) 0 SEEN /hpf [facility] Work Phone: Nitrite Test strip Ql (U)on 08-20-2021 Nitrite Ql (U) Negative Negative [facility] Work Phone: No Panel Informationon 08-20 Estimated Creatinine Clearance Calc 85.03 ml/min [facility] Work Phone: Estimated GFR (MDRD) Amer 119 mL/min >60 [facility] Work Phone: Comment on above: GFR Calc Estimated GFR (MDRD) Non-Af Amer 99 mL/min >60 [facility] Work Phone: Comment on above: Non- GFR Calc Protein Test strip Ql (U)on 08-20-2021 Protein Ql (U) 15 mg/dl Negative [facility] Work Phone: Serum or plasma calcium rachel urement (mass/volume)on 08-20-2021 Calcium [Mass/Vol] 9.6 mg/dL 8.5-10.1 [facility] Work Phone: Serum or plasma creatinine m easurement (mass/volume)on 08-20-2021 Creatinine [Mass/Vol] 0.73 mg/dL 0.55-1.02 [facility] Work Phone: Comment on above: The validity of the calculated GFR & GFRAA in patients over 70 years has not been determined. Clinical correlation is essential. Serum or plasma urea nitroge n measurement (mass/volume)on 08-20-2021 Urea nitrogen [Mass/Vol] 12 mg/dL 7-18 [facility] Work Phone: Squamous epithelial cells de tection in urine sediment by light microscopyon 08-20-2021 Epithelial cells.squamous LM Ql (Urine sed) 5-10 SEEN /hpf [facility] Work Phone: Thin prep Papanicolaou smear with manual screeningon 08-20-2021 Thin prep Papanicolaou smear with manual screening 5 5-15 [facility] Work Phone: Urine blood detectionon 07-23 RBC Ql (U) Negative Negative [facility] Work Phone: RBC Ql (U) 0 SEEN /hpf [facility] Work Phone: Urine clarityon 08-20-2021 Clarity (U) Sl. Cloudy Clear [facility] Work Phone: Urine color determinationon 08-20-2021 Color (U) Yellow Yellow [facility] Work Phone: Urine glucose detectionon Glucose Ql (U) Normal mg/dl Normal [facility] Work Phone: Urine leukocyte esterase det ection by dipstickon 08-20-2021 Leukocyte esterase Test strip Ql (U) 100 /ul Negative [facility] Work Phone: Urine pHon 08-20-2021 pH (U) 6.5 [pH] [facility] Work Phone: Urine sediment bacteria coun t by microscopy (number/high power field)on 08-20-2021 Bacteria LM.HPF (Urine sed) [#/Area] 3 /[HPF] None Seen [facility] Work Phone: Urine specific gravity measu rementon 08-20-2021 Specific gravity (U) [Rel density] 1.020 [facility] Work Phone: Urobilinogen Auto test strip Ql (U)on 08-20-2021 Urobilinogen Ql (U) Normal mg/dl Normal [facility] Work Phone: No Panel Information Group B Streptococcus Culture Group B Beta Streptococcus is not isolated. [facility] Work Phone: Vital Signs Date Time Vital Sign Value Performing Clinician Faci lity 01-27-2025 12:35-0400 Body temperature 98.4 [degF] Alejandra Gravity Work Phone: [facility] [employer] 01-27-2025 12:35-0400 Diastolic blood pressure 66 mm[Hg] Alejandra Gravity Work Phone: [facility] [employer] 01-27-2025 12:35-0400 Heart rate 77 /min AlejandraCortera Work Phone: [facility] [employer] 01-27-2025 12:35-0400 Respiratory rate 16 /min Busy Moos Work Phone: [facility] [employer] 01-27-2025 12:35-0400 SaO2% (BldA) [Mass fraction] 100 % Alejandra Gravity Work Phone: [facility] [employer] 01-27-2025 12:35-0400 Systolic blood pressure 97 mm[Hg] Alejandra Gravity Work Phone: [employer] 01-27-2025 03:17-0400 Body height 157.5 cm Alejandra Gravity Work Phone: [facility] [employer] 01-27-2025 03:17-0400 Body mass index (BMI) [Ratio] 24.69 kg/m2 [facility]jandra [facility] Phone: [facility] [employer] 01-27-2025 03:17-0400 Body weight 61.24 kg Alejandra Tena DO Work Phone: [facility] [employer] 06-17-2023 18:00-0500 Body temperature 98.2 [degF] No Primary Care Physician [facility] 06-17-2023 18:00-0500 Diastolic blood pressure 60 mm[Hg] No Primary Care Physician [facility] 06-17-2023 18:00-0500 Heart rate 65 /min No Primary Care Physician [facility] 06-17-2023 18:00-0500 Respiratory rate 18 /min No Primary Care Physician [facility] 06-17-2023 18:00-0500 SaO2% (BldA) [Mass fraction] 97 % No Primary Care Physician [facility] 06-17-2023 18:00-0500 Systolic blood pressure 101 mm[Hg] No Primary Care Physician [facility] 06-17-2023 13:35-0500 Body height 154.94 cm No Primary Care Physician [facility] 06-17-2023 13:35-0500 Body mass index (BMI) [Ratio] 30.2 kg/m2 No Primary Care Physician [facility] 06-17-2023 13:35-0500 Body weight 72.5 kg No Primary Care Physician [facility] 05-26-2023 13:40-0500 Body mass index (BMI) [Ratio] 29.7 kg/m2 No Primary Care Physician [facility] 05-26-2023 13:40-0500 Body weight 71.27 kg No Primary Care Physician [facility] 05-26-2023 13:40-0500 Diastolic blood pressure 82 mm[Hg] No Primary Care Physician [facility] 05-26-2023 13:40-0500 Systolic blood pressure 120 mm[Hg] No Primary Care Physician [facility] 04-17-2023 11:46-0400 Body height 154.94 cm No Primary Care Physician [facility] 04-17-2023 11:38-0400 Body mass index (BMI) [Ratio] 29.2 kg/m2 No Primary Care Physician [facility] 04-17-2023 11:38-0400 Body weight 70.36 kg No Primary Care Physician [facility] 04-17-2023 11:38-0400 Diastolic blood pressure 72 mm[Hg] No Primary Care Physician [facility] 04-17-2023 11:38-0400 Systolic blood pressure 109 mm[Hg] No Primary Care Physician [facility] 01-23-2023 09:55-0400 Body height 154.94 cm No Primary Care Physician [facility] 01-23-2023 09:54-0400 Diastolic blood pressure 73 mm[Hg] No Primary Care Physician [facility] 01-23-2023 09:54-0400 Systolic blood pressure 114 mm[Hg] No Primary Care Physician [facility] 10-17-2022 09:05-0400 Body height 154.94 cm No Primary Care Physician [facility] 10-17-2022 09:05-0400 Body temperature 98.5 [degF] No Primary Care Physician [facility] 10-17-2022 09:05-0400 Diastolic blood pressure 68 mm[Hg] No Primary Care Physician [facility] 10-17-2022 09:05-0400 Heart rate 83 /min No Primary Care Physician [facility] 10-17-2022 09:05-0400 SaO2% (BldA) [Mass fraction] 95 % No Primary Care Physician [facility] 10-17-2022 09:05-0400 Systolic blood pressure 98 mm[Hg] No Primary Care Physician [facility] 09-09-2022 09:53-0500 Body temperature 97.6 [degF] No Primary Care Physician [facility] 09-09-2022 09:53-0500 Diastolic blood pressure 72 mm[Hg] No Primary Care Physician [facility] 09-09-2022 09:53-0500 Heart rate 78 /min No Primary Care Physician [facility] 09-09-2022 09:53-0500 Respiratory rate 16 /min No Primary Care Physician [facility] 09-09-2022 09:53-0500 SaO2% (BldA) [Mass fraction] 98 % No Primary Care Physician [facility] 09-09-2022 09:53-0500 Systolic blood pressure 102 mm[Hg] No Primary Care Physician [facility] 08-02-2022 15:45-0500 Body mass index (BMI) [Ratio] 28.9 kg/m2 No Primary Care Physician [facility] 08-02-2022 15:45-0500 Body weight 69.39 kg No Primary Care Physician [facility] 08-02-2022 15:45-0500 Diastolic blood pressure 78 mm[Hg] No Primary Care Physician [facility] 08-02-2022 15:45-0500 Systolic blood pressure 118 mm[Hg] No Primary Care Physician [facility] 05-13-2022 09:26-0400 Body height 154.94 cm No Primary Care Physician [facility] Work Phone: 05-13-2022 09:26-0400 Body mass index (BMI) [Ratio] 27.8 kg/m2 No Primary Care Physician [facility] Work Phone: 05-13-2022 09:26-0400 Body temperature 97.6 [degF] No Primary Care Physician [facility] Work Phone: 05-13-2022 09:26-0400 Body weight 66.67 kg No Primary Care Physician [facility] Work Phone: 05-13-2022 09:26-0400 Diastolic blood pressure 71 mm[Hg] No Primary Care Physician [facility] Work Phone: 05-13-2022 09:26-0400 Heart rate 86 /min No Primary Care Physician [facility] Work Phone: 05-13-2022 09:26-0400 Respiratory rate 16 /min No Primary Care Physician [facility] Work Phone: 05-13-2022 09:26-0400 SaO2% (BldA) [Mass fraction] 94 % No Primary Care Physician [facility] Work Phone: 05-13-2022 09:26-0400 Systolic blood pressure 108 mm[Hg] No Primary Care Physician [facility] Work Phone: 04-15-2022 15:52-0400 Body height 154.94 cm No Primary Care Physician [facility] Work Phone: 04-15-2022 15:52-0400 Body mass index (BMI) [Ratio] 27.4 kg/m2 No Primary Care Physician [facility] Work Phone: 04-15-2022 15:52-0400 Body weight 68.03 kg No Primary Care Physician [facility] Work Phone: 04-15-2022 15:52-0400 Diastolic blood pressure 75 mm[Hg] No Primary Care Physician [facility] Work Phone: 04-15-2022 15:52-0400 Systolic blood pressure 119 mm[Hg] No Primary Care Physician [facility] Work Phone: 03-12-2022 11:54-0400 Body mass index (BMI) [Ratio] 27.4 kg/m2 No Primary Care Physician [facility] Work Phone: 03-12-2022 11:54-0400 Body weight 68.03 kg No Primary Care Physician [facility] Work Phone: 03-12-2022 11:54-0400 Diastolic blood pressure 64 mm[Hg] No Primary Care Physician [facility] Work Phone: 03-12-2022 11:54-0400 Systolic blood pressure 102 mm[Hg] No Primary Care Physician [facility] Work Phone: 02-26-2022 16:45-0400 Body temperature 97.8 [degF] No Primary Care Physician [facility] Work Phone: 02-26-2022 16:45-0400 Diastolic blood pressure 58 mm[Hg] No Primary Care Physician [facility] Work Phone: 02-26-2022 16:45-0400 Heart rate 81 /min No Primary Care Physician [facility] Work Phone: 02-26-2022 16:45-0400 Respiratory rate 16 /min No Primary Care Physician [facility] Work Phone: 02-26-2022 16:45-0400 SaO2% (BldA) [Mass fraction] 98 % No Primary Care Physician [facility] Work Phone: 02-26-2022 16:45-0400 Systolic blood pressure 95 mm[Hg] No Primary Care Physician [facility] Work Phone: 02-25-2022 10:35-0400 Body height 154.94 cm No Primary Care Physician [facility] Work Phone: 02-25-2022 10:35-0400 Body mass index (BMI) [Ratio] 30.2 kg/m2 No Primary Care Physician [facility] Work Phone: 02-25-2022 10:35-0400 Body weight 72.57 kg No Primary Care Physician [facility] Work Phone: 02-22-2022 13:49-0400 Body height 154.94 cm No Primary Care Physician [facility] Work Phone: 02-22-2022 13:49-0400 Body mass index (BMI) [Ratio] 30.2 kg/m2 No Primary Care Physician [facility] Work Phone: 02-22-2022 13:49-0400 Body weight 72.63 kg No Primary Care Physician [facility] Work Phone: 02-22-2022 13:49-0400 Diastolic blood pressure 60 mm[Hg] No Primary Care Physician [facility] Work Phone: 02-22-2022 13:49-0400 Systolic blood pressure 100 mm[Hg] No Primary Care Physician [facility] Work Phone: 02-15-2022 14:07-0400 Body mass index (BMI) [Ratio] 30.2 kg/m2 No Primary Care Physician [facility] Work Phone: 02-15-2022 14:07-0400 Body weight 72.63 kg No Primary Care Physician [facility] Work Phone: 02-15-2022 14:07-0400 Diastolic blood pressure 76 mm[Hg] No Primary Care Physician [facility] Work Phone: 02-15-2022 14:07-0400 Systolic blood pressure 118 mm[Hg] No Primary Care Physician [facility] Work Phone: 02-01-2022 14:03-0400 Body mass index (BMI) [Ratio] 30.2 kg/m2 No Primary Care Physician [facility] Work Phone: 02-01-2022 14:03-0400 Body weight 72.57 kg No Primary Care Physician [facility] Work Phone: 02-01-2022 14:03-0400 Diastolic blood pressure 78 mm[Hg] No Primary Care Physician [facility] Work Phone: 02-01-2022 14:03-0400 Systolic blood pressure 128 mm[Hg] No Primary Care Physician [facility] Work Phone: 01-18-2022 13:58-0400 Body mass index (BMI) [Ratio] 29.7 kg/m2 No Primary Care Physician [facility] Work Phone: 01-18-2022 13:58-0400 Body weight 71.32 kg No Primary Care Physician [facility] Work Phone: 01-18-2022 13:58-0400 Diastolic blood pressure 78 mm[Hg] No Primary Care Physician [facility] Work Phone: 01-18-2022 13:58-0400 Systolic blood pressure 108 mm[Hg] No Primary Care Physician [facility] Work Phone: 01-13-2022 08:15-0400 Body temperature 98.2 [degF] No Primary Care Physician [facility] Work Phone: 01-13-2022 08:15-0400 Diastolic blood pressure 74 mm[Hg] No Primary Care Physician [facility] Work Phone: 01-13-2022 08:15-0400 Heart rate 103 /min No Primary Care Physician [facility] Work Phone: 01-13-2022 08:15-0400 Respiratory rate 14 /min No Primary Care Physician [facility] Work Phone: 01-13-2022 08:15-0400 SaO2% (BldA) [Mass fraction] 97 % No Primary Care Physician [facility] Work Phone: 01-13-2022 08:15-0400 Systolic blood pressure 122 mm[Hg] No Primary Care Physician [facility] Work Phone: 01-06-2022 14:26-0400 Diastolic blood pressure 62 mm[Hg] No Primary Care Physician [facility] Work Phone: 01-06-2022 14:26-0400 Systolic blood pressure 104 mm[Hg] No Primary Care Physician [facility] Work Phone: 01-06-2022 13:05-0400 Body temperature 99.5 [degF] No Primary Care Physician [facility] Work Phone: 01-06-2022 13:05-0400 Heart rate 110 /min No Primary Care Physician [facility] Work Phone: 01-06-2022 13:05-0400 Respiratory rate 15 /min No Primary Care Physician [facility] Work Phone: 01-06-2022 13:05-0400 SaO2% (BldA) [Mass fraction] 98 % No Primary Care Physician [facility] Work Phone: 08-20-2021 17:02-0500 Body temperature 98.4 [degF] No Primary Care Physician [facility] Work Phone: 08-20-2021 17:02-0500 Diastolic blood pressure 78 mm[Hg] No Primary Care Physician [facility] Work Phone: 08-20-2021 17:02-0500 Heart rate 88 /min No Primary Care Physician [facility] Work Phone: 08-20-2021 17:02-0500 Respiratory rate 16 /min No Primary Care Physician [facility] Work Phone: 08-20-2021 17:02-0500 SaO2% (BldA) [Mass fraction] 98 % No Primary Care Physician [facility] Work Phone: 08-20-2021 17:02-0500 Systolic blood pressure 120 mm[Hg] No Primary Care Physician [facility] Work Phone: 08-20-2021 15:15-0500 Body height 154.94 cm No Primary Care Physician [facility] Work Phone: 08-20-2021 15:15-0500 Body mass index (BMI) [Ratio] 26.6 kg/m2 No Primary Care Physician [facility] Work Phone: 08-20-2021 15:15-0500 Body weight 63.9 kg No Primary Care Physician [facility] Work Phone: Encounters Encounter Date Encounter Type Care Provider Facility Start: 03-11-2025 ambulatory No Primary Car e Physician Facility:[facility] Start: 03-04-2025 ambulatory Saritha Cardona lity:[facility] Start: 03-04-2025 End: 03-04-2025 ambulatory Saritha Salgado Facility:[facility] Start: 03-04-2025 End: 03-04-2025 ambulatory Saritha Salgado Facility:[facility] Start: 03-01-2025 End: 03-01-2025 ambulatory [facility] Start: 02-22-2025 ambulatory Analia Oconnellty:[facility] Start: 02-22-2025 End: 02-22-2025 ambulatory No Primary Care Physician Facility:[facility] Start: 02-22-2025 End: 02-22-2025 ambulatory No Primary Care Physician Facility:[facility] Start: 02-21-2025 End: 02-21-2025 ambulatory [facility] Rula [facility] Start: 02-18-2025 End: 02-18-2025 ambulatory Saritha Salgado Facility:[facility] Start: 02-17-2025 End: 02-17-2025 ambulatory ANALIA Horta [facility] Start: 02-07-2025 End: 02-07-2025 ambulatory Saritha Salgado Facility:[facility] Start: 02-07-2025 End: 02-07-2025 ambulatory Saritha Salgado Facility:[facility] Start: 02-04-2025 End: 02-04-2025 ambulatory MD NO PRIMARY CARE [facility] Start: 02-01-2025 End: 02-01-2025 ambulatory No Primary Care Physician Facility:[facility] Start: 02-01-2025 End: 02-01-2025 ambulatory No Primary Care Physician Facility:[facility] Start: 01-26-2025 End: 01-27-2025 Evaluation and management of inpatient Alejandra Tena DO Work Phone: [facility] Start: 01-26-2025 End: 01-26-2025 ambulatory No Primary Care Physician Facility:[facility] Start: 01-26-2025 End: 01-26-2025 Emergency department patient visit Brian Dominguez Facility:[facility] Start: 01-25-2025 End: 01-25-2025 ambulatory NO PRIMARY CARE [facility] Start: 01-17-2025 End: 01-17-2025 ambulatory Analia Mcgregor Facility:[facility] Start: 01-17-2025 End: 01-17-2025 ambulatory Analia Mcgregor Facility:[facility] Start: 01-06-2025 End: 01-06-2025 ambulatory Analia Mcgregor [facility] Start: 12-30-2024 End: 12-30-2024 ambulatory [facility] Start: 12-08-2024 End: 12-08-2024 ambulatory Analia Mcgregor [facility] Start: 12-07-2024 End: 12-07-2024 ambulatory Albaro Jimenez Facility:[facility] Start: 11-30-2024 End: 11-30-2024 ambulatory NO PRIMARY CARE [facility] Start: 11-29-2024 End: 11-29-2024 ambulatory JAYSON BATES [facility] Start: 11-09-2024 End: 11-09-2024 ambulatory Saritha Salgado [facility] Start: 11-09-2024 End: 11-09-2024 ambulatory Saritha Salgado Facility:[facility] Start: 10-25-2024 End: 10-25-2024 ambulatory NO PRIMARY CARE [facility] Start: 10-20-2024 End: 10-20-2024 ambulatory Saritha Marcanthony Facility:[facility] Start: 10-19-2024 End: 10-19-2024 ambulatory Albaro L Tony Facility:[facility] Start: 10-06-2024 End: 10-06-2024 ambulatory Saritha Marcanthony Facility:[facility] Start: 10-05-2024 End: 10-05-2024 Subsequent hospital visit by physician Ashley Villarreal MD Work Phone: [facility] Comment on above: History of Start: 10-05-2024 End: 10-06-2024 ambulatory NO PRIMARY CARE [facility] Start: 09-27-2024 End: 09-27-2024 ambulatory NO PRIMARY CARE [facility] Start: 09-26-2024 End: 09-26-2024 Emergency department patient visit Damaso Whitfield Facility:[facility] Start: 09-15-2024 End: 09-15-2024 ambulatory Saritha Marckirstyony [facility] Start: 09-15-2024 End: 09-15-2024 ambulatory Albaro Jimenez Facility:[facility] Start: 09-08-2024 End: 09-08-2024 ambulatory Jessica Reyes Facility:[facility] Start: 08-30-2024 End: 08-30-2024 ambulatory Sarithademarcus Gundersonony Facility:[facility] Start: 08-23-2024 End: 08-23-2024 ambulatory Sartiha Marcanthony Facility:[facility] Start: 08-23-2024 End: 08-23-2024 ambulatory Saritha Marcanthony Facility:[facility] Start: 08-17-2024 End: 08-17-2024 ambulatory Saritha Marcanthony Facility:[facility] Start: 08-01-2024 End: 08-01-2024 ambulatory Saritha Marcanthony Facility:[facility] Start: 07-30-2024 End: 07-30-2024 ambulatory Saritha Marcanthony Facility:[facility] Start: 07-28-2024 End: 07-28-2024 ambulatory Saritha Marcanthony Facility:[facility] Start: 07-06-2024 End: 07-06-2024 ambulatory Albaro Jimenez [facility] Start: 05-27-2024 ambulatory Saritha Salgado Faci lity:[facility] Start: 05-24-2024 End: 05-24-2024 ambulatory No Primary Care Physician Facility:[facility] [place] [place] Start: 05-13-2024 End: 05-13-2024 ambulatory No Primary Care Physician Facility:[facility] Start: 04-28-2024 End: 04-28-2024 ambulatory No Primary Care Physician Facility:[facility] [place] [place] Start: 04-16-2024 End: 04-16-2024 ambulatory Analia Mcgregor Facility:[facility] Start: 04-16-2024 ambulatory Analia Tafoyarosette Luis E Fa cility:[facility] Start: 02-23-2024 End: 02-23-2024 Subsequent hospital visit by physician Margaret TERRY Work Phone: [facility] Comment on above: Arrived Start: 06-17-2023 Non-patient / Non-visit No Primary Care Physician [facility] Start: 06-17-2023 End: 06-17-2023 Admission to same day surgery center No Primary Care Physician [facility] Start: 06-17-2023 End: 06-17-2023 ambulatory No Primary Care Physician [facility] Work Phone: Start: 06-05-2023 Registered Referred No Primary Care Physician [facility] Start: 05-26-2023 End: 05-26-2023 Patient encounter procedure No Primary Care Physician [facility] Work Phone: Start: 05-26-2023 End: 05-26-2023 Patient encounter procedure No Primary Care Physician [facility] Work Phone: Start: 05-15-2023 End: 05-15-2023 ambulatory No Primary Care Physician [facility] Work Phone: Start: 05-15-2023 End: 05-15-2023 Patient encounter procedure No Primary Care Physician [facility] Work Phone: Start: 04-28-2023 End: 04-28-2023 ambulatory No Primary Care Physician [facility] Work Phone: Start: 04-28-2023 End: 04-28-2023 Patient encounter procedure No Primary Care Physician [facility] Work Phone: Start: 04-17-2023 End: 04-17-2023 Patient encounter procedure No Primary Care Physician [facility] Work Phone: Start: 03-18-2023 End: 03-18-2023 ambulatory No Primary Care Physician [facility] Work Phone: Start: 03-18-2023 End: 03-18-2023 Patient encounter procedure No Primary Care Physician [facility] Start: 03-12-2023 End: 03-12-2023 ambulatory No Primary Care Physician [facility] Work Phone: Start: 03-12-2023 End: 03-12-2023 Patient encounter procedure No Primary Care Physician [facility] Work Phone: Start: 03-05-2023 End: 03-05-2023 ambulatory No Primary Care Physician [facility] Work Phone: Start: 03-05-2023 End: 03-05-2023 Patient encounter procedure No Primary Care Physician [facility] Work Phone: Start: 03-04-2023 End: 03-04-2023 Patient encounter procedure No Primary Care Physician [facility] Work Phone: Start: 02-24-2023 End: 02-24-2023 Patient encounter procedure No Primary Care Physician [facility] Work Phone: Start: 02-19-2023 End: 02-19-2023 ambulatory No Primary Care Physician [facility] Work Phone: Start: 02-19-2023 End: 02-19-2023 Patient encounter procedure No Primary Care Physician [facility] Start: 02-13-2023 End: 02-13-2023 Patient encounter procedure No Primary Care Physician [facility] Work Phone: Start: 02-12-2023 End: 02-12-2023 ambulatory No Primary Care Physician [facility] Work Phone: Start: 02-12-2023 End: 02-12-2023 Patient encounter procedure No Primary Care Physician [facility] Work Phone: Start: 02-05-2023 End: 02-05-2023 ambulatory No Primary Care Physician [facility] Work Phone: Start: 02-05-2023 End: 02-05-2023 Patient encounter procedure No Primary Care Physician [facility] Work Phone: Start: 01-29-2023 End: 01-29-2023 ambulatory No Primary Care Physician [facility] Work Phone: Start: 01-29-2023 End: 01-29-2023 Patient encounter procedure No Primary Care Physician [facility] Work Phone: Start: 01-26-2023 End: 01-26-2023 ambulatory No Primary Care Physician [facility] Work Phone: Start: 01-26-2023 End: 01-26-2023 Patient encounter procedure No Primary Care Physician [facility] Work Phone: Start: 01-23-2023 End: 01-23-2023 ambulatory No Primary Care Physician [facility] Work Phone: Start: 01-23-2023 End: 01-23-2023 Patient encounter procedure No Primary Care Physician [facility] [facility] Work Phone: Start: 01-22-2023 End: 01-22-2023 ambulatory No Primary Care Physician [facility] Work Phone: Start: 01-22-2023 End: 01-22-2023 Patient encounter procedure No Primary Care Physician [facility] Work Phone: Start: 01-16-2023 End: 01-16-2023 ambulatory No Primary Care Physician [facility] Work Phone: Start: 01-16-2023 End: 01-16-2023 Patient encounter procedure No Primary Care Physician [facility] Work Phone: Start: 01-14-2023 End: 01-14-2023 ambulatory No Primary Care Physician [facility] Work Phone: Start: 01-14-2023 End: 01-14-2023 Patient encounter procedure No Primary Care Physician [facility], [facility] [place] Work Phone: Start: 01-14-2023 End: 01-14-2023 ambulatory No Primary Care Physician [facility] Work Phone: Start: 01-14-2023 End: 01-14-2023 Patient encounter procedure No Primary Care Physician [facility] Work Phone: Start: 01-12-2023 End: 01-12-2023 Patient encounter procedure No Primary Care Physician [facility] Work Phone: Start: 11-14-2022 End: 11-14-2022 Patient encounter procedure No Primary Care Physician [facility] Work Phone: Start: 11-04-2022 End: 11-04-2022 ambulatory No Primary Care Physician [facility] Work Phone: Start: 11-04-2022 End: 11-04-2022 Patient encounter procedure No Primary Care Physician [facility], Specimen Start: 10-31-2022 End: 10-31-2022 ambulatory No Primary Care Physician [facility] Work Phone: Start: 10-31-2022 End: 10-31-2022 Patient encounter procedure No Primary Care Physician [facility] Start: 10-17-2022 End: 10-17-2022 Patient encounter procedure No Primary Care Physician [facility] Start: 09-23-2022 End: 09-23-2022 Patient encounter procedure No Primary Care Physician [facility] Start: 09-19-2022 End: 09-19-2022 Patient encounter procedure No Primary Care Physician [facility] Start: 09-09-2022 End: 09-09-2022 Patient encounter procedure No Primary Care Physician [facility] Start: 09-09-2022 End: 09-09-2022 Patient encounter procedure No Primary Care Physician [facility] Start: 08-02-2022 End: 08-02-2022 Patient encounter procedure No Primary Care Physician [facility] Start: 05-24-2022 End: 05-24-2022 ambulatory No Primary Care Physician [facility] Work Phone: Start: 05-24-2022 End: 05-24-2022 Patient encounter procedure No Primary Care Physician [facility] Start: 05-13-2022 End: 05-13-2022 ambulatory No Primary Care Physician [facility] Work Phone: Start: 05-13-2022 End: 05-13-2022 Patient encounter procedure No Primary Care Physician [facility], Specimen Start: 05-13-2022 End: 05-13-2022 Patient encounter procedure No Primary Care Physician [facility] Start: 04-30-2022 End: 04-30-2022 ambulatory No Primary Care Physician [facility] Work Phone: Start: 04-30-2022 End: 04-30-2022 Patient encounter procedure No Primary Care Physician [facility] Start: 04-15-2022 End: 04-15-2022 ambulatory No Primary Care Physician [facility] Work Phone: Start: 04-15-2022 End: 04-15-2022 Patient encounter procedure No Primary Care Physician [facility] Start: 04-10-2022 End: 04-10-2022 Patient encounter procedure No Primary Care Physician [facility] Start: 03-12-2022 End: 03-12-2022 Patient encounter procedure No [facility] Start: 02-26-2022 Non-patient / Non-visit No Primary Care Physician [facility] Start: 02-25-2022 Non-patient / Non-visit No Primary Care Physician [facility] Start: 02-25-2022 End: 02-26-2022 Evaluation and management of inpatient No Primary Care Physician [facility] Start: 02-25-2022 End: 02-25-2022 Patient encounter procedure No Primary Care Physician [facility] Start: 02-25-2022 End: 02-25-2022 Patient encounter procedure No Primary Care Physician [facility] Start: 02-22-2022 End: 02-22-2022 Patient encounter procedure No Primary Care Physician [facility] Start: 02-22-2022 End: 02-22-2022 Patient encounter procedure No Primary Care Physician [facility], Specimen Start: 02-18-2022 End: 02-18-2022 Patient encounter procedure No Primary Care Physician [facility] Start: 02-15-2022 End: 02-15-2022 Patient encounter procedure No Primary Care Physician [facility] Start: 02-11-2022 End: 02-11-2022 Patient encounter procedure No Primary Care Physician [facility] Start: 02-04-2022 End: 02-04-2022 Patient encounter procedure No Primary Care Physician [facility] Start: 02-01-2022 End: 02-01-2022 Patient encounter procedure No Primary Care Physician [facility] Start: 01-29-2022 End: 01-29-2022 Patient encounter procedure No Primary Care Physician [facility] Start: 01-25-2022 End: 01-25-2022 Patient encounter procedure No Primary Care Physician [facility], [facility] Start: 01-18-2022 End: 01-18-2022 Patient encounter procedure No Primary Care Physician [facility] Start: 01-13-2022 End: 01-13-2022 Patient encounter procedure No Primary Care Physician [facility] Start: 01-06-2022 End: 01-06-2022 Patient encounter procedure No Primary Care Physician [facility] Start: 12-25-2021 End: 12-25-2021 Patient encounter procedure No Primary Care Physician [facility] Start: 12-10-2021 End: 12-10-2021 Patient encounter procedure No Primary Care Physician [facility] Start: 12-07-2021 End: 12-07-2021 Patient encounter procedure No [facility] [place] [facility] Start: 11-27-2021 Non-patient / Non-visit No Primary Care Physician [facility] Start: 11-26-2021 End: 11-26-2021 Patient encounter procedure No Primary Care Physician [facility] Start: 11-14-2021 End: 11-14-2021 Patient encounter procedure No Primary Care Physician [facility] Start: 11-06-2021 End: 11-06-2021 Patient encounter procedure No Primary Care Physician [facility] Start: 09-17-2021 End: 09-17-2021 Patient encounter procedure No Primary Care Physician [facility] Start: 09-07-2021 End: 09-07-2021 Patient encounter procedure No [facility] [place] [facility] Start: 08-22-2021 End: 08-22-2021 Patient encounter procedure No [facility] [place] [facility] Start: 08-20-2021 End: 08-20-2021 Emergency department patient visit No Primary Care Physician [facility] Procedures Date Procedure Procedure Detail [...] specimen Performed By: #### L [id number] #### Entry Engineer: RADHA VASQUEZ ([id number]) [facility] ([facility]) [address] [place] [address] Start: 01-27-2025 ABO and Rh group [Ty [...] surf ant ibody hbsab Margaret M Duglase [employer] Work Phone: Start: 06-17-2023 Laparoscopy No Primary [...] 2) Zoste r Vaccines (1 of 2) [facility] Start: 01-19-2032 DTaP/Tdap/Td Vaccine s (8 - Td or Tdap) DTaP/Tdap/Td Vaccines (8 - Td or Tdap) [facility] Start: 01-27-2026 Depression Screening Depression Scre ening [facility] Start: 03-21-2025 Influenza vaccination Influenza Vacc ine (#1) [facility] Start: 03-21-2025 RSV Immunization for Adults (1 - Risk 1-dose series) RSV Immunization for Adults (1 - Risk 1-dose series) [facility] Start: 10-25-2024 End: 10-25-2024 Professional / ancillary services management 10/25/2024 2:45 PM EDT Ancillary Procedure Visit [facility] [address] [place] [address] US FU 4 weeks [facility] Comment on above: US FU 4 weeks Start: 03-21-2024 COVID-19 (2 5 season) COVID-19 ( season) [facility] Start: 03-21-2024 COVID-19 Vaccine ( season) COVID-19 Vaccine ( season) [facility] Start: 03-21-2024 FLU (#1) FLU (#1) [facility] Start: 06-17-2023 Patient discharge [facility] Start: 06-17-2023 Ambulation without limitation [facility] Start: 06-17-2023 Medical regimen orde rs management [facility] Start: 06-17-2023 Medication education [facility] Start: 06-17-2023 Procedure discontinued [facility] Start: 06-17-2023 Taking patient vital signs [facility] Start: 06-17-2023 Vital signs measurements [facility] Start: 06-17-2023 [facility] Start: 03-21-2023 COVID-19 (2022-08 season) COVID-19 (2022- season) [facility] Start: 02-26-2022 [facility] Work Phone: Start: 02-26-2022 Application of abdom inal corset [facility] Work Phone: Start: 02-26-2022 Patient discharge [facility] Work Phone: Start: 02-26-2022 Lupus anticoagulant assay [facility] Work Phone: Start: 02-26-2022 [facility] Work Phone: Start: 02-25-2022 End: 02-26-2022 [facility] Work Phone: Start: 02-25-2022 Administration of medication [facility] Work Phone: Start: 02-25-2022 Ambulation therapy management [facility] Work Phone: Start: 02-25-2022 Application of device [facility] Work Phone: Start: 02-25-2022 Application of inter mittent pneumatic compression device [facility] Work Phone: Start: 02-25-2022 Assessment of risk o f venous thromboembolism [facility] Work Phone: Start: 02-25-2022 Catheterization of vein [facility] Work Phone: Start: 02-25-2022 Deep breathing and c oughing exercises [facility] Work Phone: Start: 02-25-2022 Exercises [facility] Work Phone: Start: 02-25-2022 Incentive spirometry [facility] Work Phone: Start: 02-25-2022 Measuring intake and output [facility] Work Phone: Start: 02-25-2022 Notification of physician [facility] Work Phone: Start: 02-25-2022 Procedure discontinued [facility] Work Phone: Start: 02-25-2022 Provision of activit y privileges [facility] Work Phone: Start: 02-25-2022 Vital signs measurements [facility] Work Phone: Start: 02-25-2022 Wound care [facility] Work Phone: Start: 02-25-2022 Application of abdom inal corset [facility] Work Phone: Start: 02-25-2022 Admission procedure [facility] Work Phone: Start: 02-25-2022 Consultation [facility] Work Phone: Start: 02-25-2022 Streptococcus agalac tiae [Presence] in Unspecified specimen by Organism specific culture [facility] Work Phone: Start: 2021 Screening for malign ant neoplasm of cervix [facility] Start: 02-17-2012 Microscopic observat ion [Identifier] in Cervix by Cyto stain Pap Smear [facility] Start: 02-17-2012 Screening for malign ant neoplasm of cervix Pap Smear [facility] Start: 2010 Hepatitis B (1 of 3 - 19+ 3-dose series) Hepatitis B (1 of 3 - 19+ 3-dose series) [facility] Start: 2009 Hepatitis C screening Hepatitis C Sc reening [facility] Start: 2007 MenB (1 of 2 - MenB 2-Dose Series Bexsero) MenB (1 of 2 - MenB 2-Dose Series Bexsero) [facility] Start: 02-17-2004 Varicella (1 of 2 - 13+ 2-dose series) Varicella (1 of 2 - 13+ 2-dose series) [facility] Start: 02-17-2004 Varicella vaccination Varicell a Vaccines (1 of 2 - 13+ 2-dose series) [facility] Start: 1998 Tetanus Diphtheria a nd Pertussis Vaccines (1 - Tdap) Tetanus Diphtheria and Pertussis Vaccines (1 - Tdap) [facility] Start: 02-17-1992 MMR (1 of 1 - Standa rd series) MMR (1 of 1 - Standard series) [facility] Start: 1991 HIV screening HIV Screening [facility] End: 01-27-2025 Bacteria identified in Urine by Culture [facility] Comment on above: STAT (Lab) for 1 Occ urrences starting 01/27/2025 until 01/27/2025 Once for 1 Occurrenc es starting 01/27/2025 until 01/27/2025 Bacteria identified in Urine by Culture Urine culture Microbiology STAT 01/27/2025 3:02 AM EDT [facility] Beta 2 glycoprotein 1 IgA Ab [Presence] in Serum [facility] Work Phone: Beta 2 glycoprotein 1 IgG Ab [Presence] in Serum [facility] Work Phone: Beta 2 glycoprotein 1 IgM Ab [Presence] in Serum [facility] Work Phone: Beta-hemolytic Strep tococcus culture [facility] Work Phone: Cardiolipin IgA Ab [Units/volume] in Serum by Immunoassay [facility] Work Phone: Cardiolipin IgG Ab [Units/volume] in Serum or Plasma [facility] Work Phone: Cardiolipin IgM Ab [Units/volume] in Serum or Plasma [facility] Work Phone: Choriogonadotropin ( test) [Presence] in Serum or Plasma [facility] Cytomegalovirus IgG antibody measurement [facility] Work Phone: Cytomegalovirus IgM antibody assay [facility] Work Phone: Group B Streptococcu s Culture Group B Streptococcus Culture [facility] Work Phone: Lupus anticoagulant neutralization platelet [Time] in Platelet poor plasma by Coagulation assay [facility] Work Phone: End: 10-05-2024 Miscellaneous Sendout: [facility] Work Phone: Comment on above: 1 Occurrences starti ng 10/05/2024 until 10/05/2024 Partial thromboplast in time ratio [facility] Work Phone: Parvovirus B19 IgG A b [Units/volume] in Serum by Immunoassay [facility] Work Phone: Parvovirus B19 IgM A b [Units/volume] in Serum by Immunoassay [facility] Work Phone: Patient Education Urinary Tract Infections in Women ED Hyperemesis Gravidarum [facility] Work Phone: Patient referral [facility] Work Phone: Streptococcus agalac tiae [Presence] in Unspecified specimen by Organism specific culture [facility] Work Phone: End: 01-27-2025 Streptococcus agalactiae DNA [Presence] in Unspecified specimen by MAE with probe detection Group B Strep Screen PCR Microbiology STAT STAT (Lab) for 1 Occurrences starting 01/27/2025 until 01/27/2025 [facility] Work Phone: Comment on above: STAT (Lab) for 1 Occ urrences starting 01/27/2025 until 01/27/2025 Streptococcus agalac tiae DNA [Presence] in Unspecified specimen by MAE with probe detection Group B Strep Screen PCR Microbiology STAT 01/27/2025 2:10 AM EDT [facility] [employer] Thrombin time [facility] Work Phone: Toxoplasma gondii Ig G Ab [Units/volume] in Serum [facility] Work Phone: Toxoplasma gondii Ig M Ab [Units/volume] in Serum [facility] Work Phone: End: 01-27-2025 Urine Hold Cup Urine Hold Cup Lab Timed Once for 1 Occurrences starting 01/27/2025 until 01/27/2025 [facility] Comment on above: Once for 1 Occurrenc es starting 01/27/2025 until 01/27/2025 US Thyroid gland [facility] Work Phone: Immunizations Immunization Date Immunization Notes Care Provider Fa cili 05-14-2024 influenza virus vaccine, unspecified formulation Alejandra Tena DO Work Phone: [facility] 05-13-2023 influenza, injectabl e, quadrivalent, preservative free No Primary Care Physician [facility] 06-20-2022 influenza, injectabl e, quadrivalent, preservative free No Primary Care Physician [facility] 06-20-2022 influenza, seasonal, injectable No Primary Care Physician [facility] 01-18-2022 tetanus toxoid, redu itzel diphtheria toxoid, and acellular pertussis vaccine, adsorbed No Primary Care Physician [facility] 04-25-2021 influenza, injectabl e, quadrivalent, preservative free No Primary Care Physician [facility] 04-25-2021 influenza, seasonal, injectable No Primary Care Physician [facility] 04-05-2021 Covid (Moderna) No Primary C are Physician [facility] 03-08-2021 Covid (Moderna) No Primary C are Physician [facility] 04-18-2020 influenza, injectabl e, quadrivalent, preservative free No Primary Care Physician [facility] 04-18-2020 influenza, seasonal, injectable No Primary Care Physician [facility] 06-16-2019 influenza, injectabl e, quadrivalent, preservative free No Primary Care Physician [facility] 06-16-2019 influenza, seasonal, injectable No Primary Care Physician [facility] 04-17-2018 influenza, injectabl e, quadrivalent, preservative free No Primary Care Physician [facility] 04-17-2018 influenza, seasonal, injectable No Primary Care Physician [facility] 05-14-2017 influenza, injectabl e, quadrivalent, preservative free No Primary Care Physician [facility] 05-14-2017 influenza, seasonal, injectable No Primary Care Physician [facility] 05-08-2016 influenza, injectabl e, quadrivalent, preservative free No Primary Care Physician [facility] 05-08-2016 influenza, seasonal, injectable No Primary Care Physician [facility] 06-01-2015 influenza, injectabl e, quadrivalent, preservative free No Primary Care Physician [facility] 06-01-2015 influenza, seasonal, injectable No Primary Care Physician [facility] 10-03-2014 tetanus toxoid, redu itzel diphtheria toxoid, and acellular pertussis vaccine, adsorbed No Primary Care Physician [facility] 09-21-2014 influenza, injectabl e, quadrivalent, preservative free No Primary Care Physician [facility] 09-21-2014 influenza, seasonal, injectable No Primary Care Physician [facility] 05-24-2005 hepatitis B vaccine, pediatric or pediatric/adolescent dosage No Primary Care Physician [facility] Payers Date Payer Category Payer Medicaid HMO [employer] [id number] 2024 Commercial Managed C [facility] [id number] 2024 Unknown [id number] 2024 Medicaid [id number] 2024 Unknown [id number] 2024 Unknown [id number]. 1.13.234.2. [id number] 2023 Self-pay [id number] 1991 Unknown [id number] 2.16.840.1.831822.3.579.2 1991 Unknown [id number] 2.16.840.1.282115.3.579.2 1991 Unknown [id number] 2.16.840.1.913174.3.579.2 1991 Unknown [id number] 2.16.840.1.655265.3.579.2 1991 Unknown [id number] 2.16.840.1.721684.3.579. 1991 Unknown [id number] 2.16.840.1.961153.3.579.2 1991 Unknown [id number] 2.16.840.1.672790.3.579.2 1991 Unknown [id number] 2.16.840.1.050017.3.579.2 1991 Unknown [id number] 2.16.840.1.982893.3.579.2 1991 Unknown [id number] 2.16.840.1.767064.3.579.2 1991 Unknown [id number] 2.16840.1.661617.3.579.2 1991 Unknown [id number] 2.16.840.1.187836.3.579.2 47 Private Health Insurance [id number] Unknown [id number] Unknown [id number] Unknown [id number] Unknown [id number] 2.16.840.1.828081.3.579.2. 462 Unknown [id number] 2.16.840.1.253867.3.579.2. 462 Unknown [id number] 2.16.840.1.722230.3.579.2. 462 Unknown [id number] 2.16.840.1.190085.3.579.2. 462 Unknown [id number] 2.16.840.1.873158.3.579.2. 462 Unknown [id number] 2.16.840.1.320443.3.579.2. 462 Unknown [id number] 2.16.840.1.330378.3.579.2. 462 Unknown [id number] 2.16.840.1.689758.3.579.2. 462 Unknown [id number] 2.840.1.996360.3.579.2. 462 Unknown [id number] 2.16.840.1.647910.3.579.2. 462 Unknown [id number] 2.16.840.1.645883.3.579.2. 462 Unknown [id number] 2.16.840.1.248639.3.579.2. 462 Unknown [id number] 2.16.840.1.998142.3.579.2. 462 Unknown [id number] 2.16.840.1.923423.3.579.2. 462 Unknown [id number] 2.16.840.1.247534.3.579.2. 462 Unknown [id number] 2.16.840.1.693999.3.579.2. 462 Unknown [id number] 2.16.840.1.274372.3.579.2. 462 Unknown [id number] 2.16.840.1.492503.3.579.2. 462 Unknown [id number] 2.16.840.1.288479.3.579.2. 462 Unknown [id number] 2.16.840.1.355152.3.579.2. 462 Unknown [id number] 2.16.840.1.647009.3.579.2. 462 Unknown [id number] 2.16.840.1.324196.3.579.2. 462 Unknown [id number] 2.16.840.1.540330.3.579.2. 462 Unknown [id number] 2.16.840.1.622728.3.579.2. 462 Unknown [id number] 2.16.840.1.929555.3.579.2. 462 Unknown [id number] 2.16.840.1.522784.3.579.2. 462 Unknown [id number] 2.16840.1.837336.3.579.2. 462 Unknown [id number] 2.16.840.1.363241.3.579.2. 462 Unknown [id number] 2.16.840.1.838552.3.579.2. 462 Unknown [id number] 2.16.840.1.577065.3.579.2. 462 Unknown [id number] 2.16.840.1.837833.3.579.2. 462 Unknown [id number] 2.16840.1.442333.3.579.2. 462 Unknown [id number] 2.16.840.1.382172.3.579.2. 462 Unknown [id number] 2.16.840.1.481232.3.579.2. 462 Unknown [id number] 2.16.840.1.624043.3.579.2. 462 Unknown [id number] 2.16.840.1.066742.3.579.2. 462 Unknown [id number] 2.16.840.1.250976.3.579.2. 462 Unknown [id number] 2.16.840.1.470920.3.579.2. 462 Unknown [id number] 2.16.840.1.991142.3.579.2. 462 Unknown [id number] 2.16.840.1.603899.3.579.2. 462 Unknown [id number] 2.16.840.1.249349.3.579.2. 462 Unknown [id number] 2.16.840.1.772638.3.579.2. 462 Unknown [id number] 2.16.840.1.343774.3.579.2. 462 Unknown [id number] 2.16.840.1.150382.3.579.2. 462 Unknown [id number] 2.16.840.1.379639.3.579.2. 462 Unknown [id number] 2.840.1.090518.3.579.2. 462 Social History Date Type Detail Facility [facility] Work Phone: Start: 12-10-2021 End: 05-26-2023 Tobacco smoking status MAIS Unknown if ever smoked [facility] Start: 12-05-2019 None [facility] Start: 12-11-2020 Non-smoker [facility] Start: 1990 Sex Assigned At Female [facility] Start: 05-08-2022 End: 01-27-2025 Tobacco smoking status NHIS Never smoked tobacco [facility] Start: 05-08-2022 End: 01-27-2025 Tobacco use and exposure Smokeless tobacco non-user [facility] Start: 05-08-2022 End: 09-27-2024 Alcoholic beverage intake Lifetime non-drinker (finding) [facility] Start: 05-08-2022 End: 01-27-2025 History of Social function [facility] Start: 05-08-2022 End: 01-27-2025 Tobacco use panel [facility] Start: 1991 Sex assigned at Not on file [facility] Start: 07-25-2024 [facility] Start: 01-27-2025 Alcoholic beverage intake Ex-d john (finding) [employer] Has the electric, Material [place] s, oil, or water company threatened to shut off services in your home in past 12Mo No [employer] (I/We) worried wheth er (my/our) food would run out before (I/we) got money to buy more. Never true [employer] In the past 12 month s, has lack of transportation kept you from medical appointments or from getting medications? No [employer] Education Start: 08-08-2024 Sex Female (finding) [facility] NEGATED: Highlighted row [facility] NEGATED: Highlighted rowStart: NINF History of tobacco use Passive smoker [facility] Goals Date Patient Goal Desired Activity /State Functional Status Date Assessment Result Facility 01-27-2025 Patient Health Quest ionnaire 2 item (PHQ-2) [Reported] [facility] 02-25-2022 Functional status Activity Abili ty Post Op [facility] Work Phone: [facility] Mental Status Date Assessment Result Facility 06-17-2023 Cognitive function Level Of Cons ciousness Awake;Drowsy [facility] Work Phone: 06-17-2023 Cognitive function Patient Orien tation Person;Place;Time [facility] Work Phone: Clinical Notes 07-24-2021 to [...] to go home., papers signed, ambulatory home [facility] 01-27-2025 Nurse Note 1300 iron infusion complete, per DR. Stringer, may be discharged to home ., iv heplock removed, clean dry and intact., discharge papers given, no acute distress this afternoon, blood sugars trending normal and pt is asymptomatic at present time, feels reassured to go home., papers signed, ambulatory home documented in this encounter [facility] 01-27-2025 Note Department of Obstet rics and Gynecology [facility] Discharge Summary Admission on 01/26/2025 11:19 PM Yessi Anne is a 34 y.o. at 28w4d who presented to Labor and Delivery for symptomatic hypoglycemia. She had been trending BGTs in place of a 1hr GTT and her Dexcom was frequently reading less than 55. She was transported from an outside hospital to [facility] with normal blood sugar readings from fingersticks however was feeling symptomatic. Her blood sugars while admitted to [facility] were within normal limit. An EKG [...] Surgery, Anxiety Follow up appointment with your doctor/hall worker - Keep next scheduled appointment Activity - Normal Activity Call your doctor/hall worker if you have: - leaking fluid - vaginal bleeding - regular contractions: More than 6 contractions in one hour - decreased movement - worsening abdominal (belly) pain - headache, blurry vision, increased swelling, upper abdominal pain Cherry Pham MD 01/27/2025 12:49 PM [facility] 01-27-2025 Hospital course Narrative Images from the original note were not included. Department of Obstetrics and Gynecology [facility] Discharge Summary Admission on 01/26/2025 11:19 PM Yessi Anne is a 34 y.o. at 28w4d who presented to Labor and Delivery for symptomatic hypoglycemia. She had been trending BGTs in place of a 1hr GTT and her Dexcom was frequently reading less than 55. She was transported from an outside hospital to [facility] with normal blood sugar readings from fingersticks however was feeling symptomatic. Her blood sugars while admitted to [facility] were within normal limit. An EKG [...] Surgery, Anxiety Follow up appointment with your doctor/hall worker - Keep next scheduled appointment Activity - Normal Activity Call your doctor/hall worker if you have: - leaking fluid - vaginal bleeding - regular contractions: More than 6 contractions in one hour - decreased movement - worsening abdominal (belly) pain - headache, blurry vision, increased swelling, upper abdominal pain Cherry Pham MD 01/27/2025 12:49 PM Cosigned by Josemanuel Stringer MD at 01/27/2025 2:20 PM EDT documented in this encounter [facility] 01-27-2025 Hospital Discharg e instructions Cherry Pham MD - 01/27/2025 12:48 PM EDT Follow up appointment with your doctor/hall worker - Keep next scheduled appointment Activity - Normal Activity Call your doctor/hall worker if you have: - leaking fluid - [...] visit on 01/27/25 . Cherry Pham MD [facility] documented in this encounter [facility] 01-27-2025 Note Formatting of this n ote might be different from the original. Date: 01/27/2025 Name: Yessi Anne : 1990 [facility] Patient Information Primary Caregiver: Self Accompanied by/Relationship: S/O;Family Marital Status: Support System: SO/Family Jew/Cultural Factors: None Activities of Daily Living Communication: [...] place to sleep or slept in a fpc (including now)? No Transportation Needs Has the [...] Developmental Delay: N/A Children's Services: N/A T [facility] 01-27-2025 Note Formatting of this n ote might be different from the original. Date: 01/27/2025 Name: Yessi Anne : 1990 [facility] Information [place] Patient Information Primary Caregiver: Self Accompanied by/Relationship: S/O;Family Marital Status: Support System: SO/Family Jew/Cultural Factors: None Activities of Daily Living Communication: [...] place to sleep or slept in a fpc (including now)? No Transportation Needs Has the [...] N/A Developmental Delay: N/A Children's Services: N/A [facility] 01-27-2025 Miscellaneous Notes Formattin g of this note might be different from the original. Date: 01/27/2025 Name: Yessi Anne : 1990 [facility] Patient Information Primary Caregiver: Self Accompanied by/Relationship: S/O;Family Marital Status: Support System: SO/Family Jew/Cultural Factors: None Activities of Daily Living Communication: [...] place to sleep or slept in a fpc (including now)? No Transportation Needs Has the [...] Children's Services: N/A documented in this encounter [facility] 01-27-2025 History of Presen t illness Narrative Images from the original note were not included. Department of Obstetrics and Gynecology Labor and Delivery Triage Note CHIEF CONCERN: Hypo-glycemia HISTORY OF PRESENT ILLNESS: Presents as a transfer from [facility] for symptomatic hypoglycemia. Blood sugar here [...] Alejandra Tena DO documented in this encounter [facility] 01-27-2025 History and physical note [...] constantly throughout the day - Consider inpatient web marketing analyst consult - Growth US/BPP ordered for AM [...] Maternal- Medicine This documentation was prepared using SwingTime voice recognition software. As a result, errors may occur. When identified, these errors have been corrected. While every attempt is made to correct errors during dictation, errors may still exist. [facility] 01-27-2025 Note Attestation signed by Josemanuel Stringer [...] Maternal- Medicine This documentation was prepared using SwingTime voice recognition software. As a result, errors [...] shortness of br (more content not included)... [facility] 01-27-2025 History and physical note Department [...] constantly throughout the day - Consider inpatient web marketing analyst consult - Growth US/BPP ordered for AM [...] Maternal- Medicine This documentation was prepared using SwingTime voice recognition software. As a result, errors may occur. When identified, these errors have been corrected. While every attempt is made to correct errors during dictation, errors may still exist. documented in this encounter [facility] 11-30-2024 Note [facility] CONSULTATION Referring Provider Saritha Salgado MD [address] [address] ASSESSMENT AND RECOMMENDATIONS Patient comes today for a follow-up consultation regarding her history of 37-week demise with pulmonary hemorrhage. Patient today is without complaints. Today, we took the time to extensively review her obstetrical records together while she was in the office. Patient reports that in the concerning , she presented to [facility]. She underwent a period of monitoring [...] than capable care provided by her primary busgirl. Romy OVERTONA FACOG Maternal- Medicine SUBJECTIVE Yessi [...] Blood Pressure Paternal (more content not included)... [facility] 06-17-2023 Discharge summary Note Date/Time June 17, 2023 3:56pm [facility] Medical Records Department [address] [place] [address] Instructions for Home/Discharge Instructions 06/17/23 1556 MR#: [id number] Acct: [id number] Name: YESSI ANNE Rep #:[id number] : 1990 33 From: Analia Mcgregor DO PCP: Care Physician,No Primary Status :[facility] Discharge Instructions Diet Discharge Diet: No restrictions [...] CC: No Primary Care Physician ~ Signed [facility] Work Phone: 1(761) 256-155011-28-[address] [facility] 06-17-2023 History and physical note Author Analia Kimbrough [facility] June 17, 2023 2:13pm Note Date/Time June 17, 2023 2:13pm [facility] Medical Records Department [address] [place] [address] History & Physical Exam 06/17/23 1413 MR#: [id number] Acct: [id number] Name: YESSI ANNE Rep #:[id number] : 1990 33 From: Analia Mcgregor DO PCP: Tennille Physician,No Primary Status :[facility] [place] [place] Location: [place] [address] History and Physical Date of Admission: 06/17/23 Intake Vital Signs 04/17/2311:46 05/26/2313:40 Height 5 ft 1 in 5 ft 1 in Weight: 157 lb 2 oz BMI 29.7 BP 120/82 H Intake Visit Reasons: right side pain/US room Social Media Strategist Required: No Is patient in pain?: No [...] house current occupational status: employed current occupation: [employer] Work[employer] pets and animals: Yes Smoking Status: Never [...] term 6lbs 1oz Female [address] [facility] Dr. Erendira Velasco 02/25/22 Miguel Angel 38 live - full term C- section Male [facility] Hal Delivery Date: 12/05/19 Last Updated by: Valerie Escoto Gestational diabetes, small for gestational age Delivery Date: 02/25/22 Last Updated by: Jaclyn Freire decl LTCS STAT. baby transported to [place] with anemia and passed @ 1812 of [...] Mcgregor DO; No Primary Care Physician~ Signed [facility] Work Phone: 1(920) 203-757005-10-2022 NoteHemoglobin EvaluationMay 2021 10:22am10.3 [facility] Phone: 1(365) 940-969905-10-2022 NoteHemoglobin EvaluationMay 2021 10:22am10.3 [facility] Work Phone: 1(808) 279-141405-10-2022 NoteHemoglobin EvaluationMay 2021 10:22am10.3 [facility] Work Phone: 1(721) 230-871301-05-2022 NoteHNO ID: [id number] Author: Heraclio Wilcox MA Service: ? Author Type: Insulator Technician Type: Progress Notes Filed: 07/25/2021 3:00 PM [...] Heraclio Wilcox MA July 25, 2021 2:56 [facility]01-04-2022 NotePatient Outreach (NETNAV) YESSI ANNE ([id number]) 1990 F Date Time Provider Department 07/24/21 [...] dizziness Date Reviewed: 05/07/2018 Reviewed by: Kate ([facility]) HILARIA Lincoln - Fully Assessed Reason [...] 04/23/2016 Encounter Status:Closed by HERACLIO WILCOX on 07/25/21[facility] complaint+Reason for visit Narrative* Chief Complaint med check RIGHT SHOULDER PAIN Neck pain Back pain COVID-19 Vertigo E-ORDER Reason for Visit depressio n Right shoulder strain Spasm of thoracic back muscle Back pain Segmental and somatic dysfunction of cervical region Segmental and somatic dysfunction of thoracic region Back pain Segmental and somatic dysfunction of thoracic region Vertigo [facility] Work Phone: Evaluation note* Diagnosis Onset [...] and somatic dysfunction of thoracic region acute [facility] Work Phone: Evaluation note* Diagnosis Onset [...] thoracic region acute Supervision of normal acute [facility] Work Phone: Evaluation note* Diagnosis Onset [...] currently resolved resolved Supervision of normal resolved [facility] Work Phone: Evaluation note* Diagnosis Onset [...] thoracic region acute care and examination acute [facility] Work Phone: Evaluation note* Diagnosis Onset [...] thoracic region acute care and examination acute [facility] Work Phone: Evaluation note* Diagnosis Onset [...] and examination acute Left thyroid nodule acute [facility] Work Phone: Evaluation note* Diagnosis Onset [...] and examination acute Left thyroid nodule acute [facility] Work Phone: Evaluation note* Diagnosis Onset Date Resolution Status depression acute Right shoulder strain acute Spasm of thoracic back muscle acute Back pain acute Segmental and somatic dysfunction of cervical region acute Segmental and somatic dysfunction of thoracic region acute Back pain acute Segmental and somatic dysfunction of thoracic region acute Vertigo noneactive [facility] Work Phone: Evaluation note* Diagnosis Onset Date Resolution Status Vertigo noneactive Back pain acute Segmental and somatic dysfunction of cervical region acute Segmental and somatic dysfunction of lumbar region acute Segmental and somatic dysfunction of thoracic region acute [facility] Work Phone: Evaluation note* Diagnosis Onset Date Resolution Status Vertigo noneactive Back pain acute Segmental and somatic dysfunction of cervical region acute Segmental and somatic dysfunction of lumbar region acute Segmental and somatic dysfunction of thoracic region acute Ectopic acute [facility] Work Phone: Evaluation note* Diagnosis Onset [...] and somatic dysfunction of thoracic region acute [facility] Work Phone: evaluation note* Diagnosis Onset [...] and somatic dysfunction of thoracic region acute [facility] Work Phone: Evaluation note* Diagnosis Onset [...] and somatic dysfunction of thoracic region acute [facility] Work Phone: evaluation note* Diagnosis Onset [...] and somatic dysfunction of thoracic region acute [facility] Work Phone: Evaluation note* Diagnosis Onset [...] acute Encounter for routine gynecological examination noneactive [facility] Work Phone: Evaluation note* Diagnosis Onset [...] of thoracic region acute Pelvic pain acute [facility] Work Phone: Evaluation note* Diagnosis [facility] Hypogly[facility]- Primary Hypoglycemia, unspecified documented in this encounter [facility] Summary Purpose Family History No Family [...] Will No August 20 5:47pm Power of Egg Grader No August 20, 2021 5:47pm Advance Directive Response Recorded Date/ Time Living Will No February 04, 2022 10:16am Power of Egg Grader No February 04 10:16am Advance Directive Response Recorded Date/ Time Living Will No February 25, 2022 2:16pm Power of Egg Grader No February 25 2:16pm Advance Directive Response Recorded Date/ Time Living Will No May 03 3:45pm Power of Egg Grader No May 03, 2022 3:45pm Advance Directive Response Recorded Date/ Time Living Will No May 03 2:45pm Power of Egg Grader No May 03, 2022 2:45pm Date Activated [...] 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 xfer of care from [facility] OBGYN, approx 31 wks GROWTH Adjustment [...] 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 xfer of care from [facility] OBGYN, approx 31 wks GROWTH Adjustment [...] Back pain INT LABS INT LABS Annual (PRIMER CHARGING TOOL SETTER) Reason for Visit Ectopic Back pain Segmental [...] Back pain INT LABS INT LABS Annual (PRIMER CHARGING TOOL SETTER) LEFT THYROID NODULE Reason for Visit Ectopic [...] Back pain INT LABS INT LABS Annual (PRIMER CHARGING TOOL SETTER) LEFT THYROID NODULE right side pain/US room [...] section and content) DATE CREATED AUTHOR 10/08/2021 [facility] DATE CREATED AUTHOR AUTHOR'S ORGANIZ ATION 01/31/2025 [facility] DATE CREATED AUTHOR AUTHOR'S ORGANIZ ATION 03/02/2025 [facility] DATE CREATED AUTHOR AUTHOR'S ORGANIZ ATION 03/04/2025 [facility] Care Teams (unrecognized sec tion and [...] Physician Primary Care Provider Active Kare[address] Street TAXICAB DRIVER, TAXICAB DRIVER-C Attending Provider, Referring Provider Active Team Status: Inactive Member Role Status Dates No Primary Care Physician Primary Care Provider Active [address] TAXICAB DRIVER, TAXICAB DRIVER-C Attending Provider, Referring Provider Active Team Status: [...] Physician Primary Care Provider Active Dr. Analia Mcgregro DO Attending Provider, Referring Provider, Other Provider Active Team Status: Active Member Role Status Dates No Primary Care Physician Primary Care Provider Active Health Risk Assessment Attending Provider Active Edge Brusher Relationship Specialty Start Date End Date No Primary Care[place] [address] PCP - General Pediatrics 01/23/22 Macarena Bourne MD Production Line Operator Obstetrics Gynecology 08/13/19 [facility] [place] [address] Genetic Counselor Genetics 07/04/22 Edge Brusher Relationship Specialty Start Date End Date No Primary Care, [place] [address] PCP - General Pediatrics 01/23/22 Macarena Bourne MD Production Line Operator Obstetrics Gynecology 08/13/19 [facility] [place] [address] Genetic Counselor Genetics 07/04/22 Reason for Visit (unrecogniz ed section and content) Reason Comments Hypoglycemia Patient transfer [facility] arely rodriguez for low blood sugars. Specialty Diagnoses / Procedures Referred By Marichuy pace Referred To Contact Diagnoses Hypoglycemia Procedures . Alejandra Tena, DO [address] [address] Phone: tel: fax: [facility] [address] [place] [address] Phone: tel: Referral ID Status Reason Start Date Expiration Date Visits Re quested Visits Authorized [id number] 1 Scheduled Active and Recently Administ [...] BE BASED ON THE PRIMARY CLINICAL RECORDS. [facility] [employer] [facility]. provides no warranty or guarantee of the accuracy or completeness of information in this document.
[2025-03-06 12:52] LABS: Hematocrit 28.1 % (37-47); Hemoglobin 9.4 g/dL (12.0-15.0); Immature Granulocytes Count 0.090 X10^3/uL (0.0-0.0); Mean Corp Hgb Conc 33.5 g/dL (32-36); Mean Corpuscular Volume 91.5 fL (81-99); Mean Platelet Vol. 11.7 fl (6.2-12.0); NRBC Flagged by Analyzer 0 % (0-5); Platelet Count 225 K/mm3 (150-450); RBC Distribution Width CV 13.0 % (11.6-14.6); RBC Distribution Width SD 42.4 fl (35.1-43.9); Red Blood Count 3.07 M/mm3 (4.2-5.4); White Blood Count 10.8 K/mm3 (4.4-11.0)
[2025-03-06] MEDS: Lactated Ringers 1,000 ML 100 ML IV ×2 (13:38→23:20)
[2025-03-06] MEDS: Aspirin E.C. 81 MG Tablet PO (14:22)
[2025-03-06] MEDS: buPROPion (SR) 150 MG Tablet.SA PO ×2 (14:22→22:01)
--- NOTE | 2025-03-06 16:45 | PCM.PN.BLA ---
Progress Note late and variable deceleration seen, discussed with patient exp managment vs proceeding with delivery- patient is not npo at this time and tracing is currently stable, will review with MFM if available but discussed and consider proceeding with delivery due to recurrent decels. she is having irritability contractions. plan clear liquid diet and repeat cbc and order fibriongen.
[2025-03-06 17:26] LABS: Hematocrit 26.9 % (37-47); Hemoglobin 9.0 g/dL (12.0-15.0); Immature Granulocytes Count 0.060 X10^3/uL (0.0-0.0); Mean Corp Hgb Conc 33.5 g/dL (32-36); Mean Corpuscular Volume 93.4 fL (81-99); Mean Platelet Vol. 11.4 fl (6.2-12.0); NRBC Flagged by Analyzer 0 % (0-5); Platelet Count 224 K/mm3 (150-450); RBC Distribution Width CV 13.0 % (11.6-14.6); RBC Distribution Width SD 44.0 fl (35.1-43.9); Red Blood Count 2.88 M/mm3 (4.2-5.4); White Blood Count 9.1 K/mm3 (4.4-11.0)
[2025-03-06 17:49] LABS: Fibrinogen 336 mg/dl (203-444)
[2025-03-06 22:17] LABS: Hematocrit 25.8 % (37-47); Hemoglobin 8.6 g/dL (12.0-15.0); Immature Granulocytes Count 0.080 X10^3/uL (0.0-0.0); Mean Corp Hgb Conc 33.3 g/dL (32-36); Mean Corpuscular Volume 92.5 fL (81-99); Mean Platelet Vol. 11.7 fl (6.2-12.0); NRBC Flagged by Analyzer 0 % (0-5); Platelet Count 197 K/mm3 (150-450); RBC Distribution Width CV 13.2 % (11.6-14.6); RBC Distribution Width SD 44.2 fl (35.1-43.9); Red Blood Count 2.79 M/mm3 (4.2-5.4); White Blood Count 8.2 K/mm3 (4.4-11.0)
[2025-03-06 22:27] LABS: Fibrinogen 332 mg/dl (203-444)
[2025-03-07] VITALS (41 sets, daily range): BP systolic 75–146; BP diastolic 41–92; PULSE 56–110; RESP 14–18; TEMP 36.1–36.6; O2SAT 81–100
[2025-03-07 02:30] LABS: ROM Internal Control Test YES-OK TO RESULT pt. (Internal QC)
[2025-03-07 02:31] LABS: ROM Patient Test Negative (Negative); Record Kit Lot#, ROM+ K3358
[2025-03-07] MEDS: Lactated Ringers 1,000 ML 999 ML IV (04:25)
[2025-03-07 04:44] LABS: Hematocrit 26.3 % (37-47); Hemoglobin 8.6 g/dL (12.0-15.0); Immature Granulocytes Count 0.060 X10^3/uL (0.0-0.0); Mean Corp Hgb Conc 32.7 g/dL (32-36); Mean Corpuscular Volume 94.3 fL (81-99); Mean Platelet Vol. 11.3 fl (6.2-12.0); NRBC Flagged by Analyzer 0 % (0-5); Platelet Count 187 K/mm3 (150-450); RBC Distribution Width CV 12.9 % (11.6-14.6); RBC Distribution Width SD 44.9 fl (35.1-43.9); Red Blood Count 2.79 M/mm3 (4.2-5.4); White Blood Count 7.7 K/mm3 (4.4-11.0)
[2025-03-07 05:01] LABS: Fibrinogen 318 mg/dl (203-444)
--- NOTE | 2025-03-07 07:09 | PCM.PN.BLA ---
Progress Note cat I-II tracing overnight with intermittent late and variable decels, patient contractions, decreased movement with history of term demise. discussed and will proceed with delivery now due to past 34 weeks and past steroid administration, NPO, stable, and suspect chronic uteroplacental insufficiency. discussed risks of prematurity vs risks of continuing - decision made to proceed with delivery. had discussed with MFM yesterday and recommended delivery based on tracing and patient symptoms.
[2025-03-07] MEDS: Cefazolin 1 GM/5 ML Vial 2 GM IV (07:18)
[2025-03-07] MEDS: Lactated Ringers 1,000 ML 1000 ML IV (07:38)
[2025-03-07] MEDS: 0.9% Normal Saline (1000mL) 250 ML IV (07:56)
--- NOTE | 2025-03-07 08:30 | PCM.POST.ANE ---
Anesthesia: Postop Eval I Current Vital Signs Temperature: 97 F Pulse Rate: 110 Blood Pressure: 146/92 Respiratory Rate: 14 Pulse Ox: 99 Oxygen Delivery Method: Room Air Assessment Airway patent: Yes Spontaneous unlabored respirations: Yes Mental status: Awake and Calm nausea: No Vomiting: No Anesthesia Complication: No Fluid Hydration Crystalloid volume administer (ml): 1,350 Total IV fluid infused: 1,350 Progress Note Anesthesia document: Postop Eval 1 completed: Yes
--- NOTE | 2025-03-07 08:34 | POSTOPAN2_ITS ---
Anesthesia Postop Eval I Sum Postop Eval Completion status Anesthesia document: Postop Eval 1 completed: Yes Anesthesia Postop Eval I Summary Anesthesia Postop Eval I Summary: Anesthesia Postop Eval I: Assessment Summary Airway patent Yes 03/07/25 08:31 COMMUNITY REPRESENTATIVE.MDOT Spontaneous unlabored Yes 03/07/25 08:31 COMMUNITY REPRESENTATIVE.MDOT respirations Mental status Awake,Calm 03/07/25 08:31 COMMUNITY REPRESENTATIVE.MDOT nausea No 03/07/25 08:31 COMMUNITY REPRESENTATIVE.MDOT Vomiting No 03/07/25 08:31 COMMUNITY REPRESENTATIVE.MDOT Anesthesia Postop Eval I: Fluid Summary Crystalloid volume administer 1,350 03/07/25 08:31 COMMUNITY REPRESENTATIVE.MDOT (ml) Colloids volume administered ( ml) Blood Product volume administered (ml) Total IV fluid infused 1,350 03/07/25 08:31 COMMUNITY REPRESENTATIVE.MDOT Anesthesia Postop Eval I: Summary Notes Anesthesia Complication No 03/07/25 08:31 COMMUNITY REPRESENTATIVE.MDOT Anesthesia Complication Comment: Post-operative progress note Anesthesia: Postop Eval II Evaluation Mental status: Awake and Calm Pain Level: 0 nausea: No Vomiting: No Complications Anesthesia Complication: No
--- NOTE | 2025-03-07 08:34 | PCM.POSTANE2 ---
Anesthesia Postop Eval I Sum Postop Eval Completion status Anesthesia document: Postop Eval 1 completed: Yes Anesthesia Postop Eval I Summary Anesthesia Postop Eval I Summary: Anesthesia Postop Eval I: Assessment Summary Airway patent Yes 03/07/25 08:31 MOLDED GRID AND PARTS INSPECTOR.MDOT Spontaneous unlabored Yes 03/07/25 08:31 MOLDED GRID AND PARTS INSPECTOR.MDOT respirations Mental status Awake,Calm 03/07/25 08:31 MOLDED GRID AND PARTS INSPECTOR.MDOT nausea No 03/07/25 08:31 MOLDED GRID AND PARTS INSPECTOR.MDOT Vomiting No 03/07/25 08:31 MOLDED GRID AND PARTS INSPECTOR.MDOT Anesthesia Postop Eval I: Fluid Summary Crystalloid volume administer 1,350 03/07/25 08:31 MOLDED GRID AND PARTS INSPECTOR.MDOT (ml) Colloids volume administered ( ml) Blood Product volume administered (ml) Total IV fluid infused 1,350 03/07/25 08:31 MOLDED GRID AND PARTS INSPECTOR.MDOT Anesthesia Postop Eval I: Summary Notes Anesthesia Complication No 03/07/25 08:31 MOLDED GRID AND PARTS INSPECTOR.MDOT Anesthesia Complication Comment: Post-operative progress note Anesthesia: Postop Eval II Evaluation Mental status: Awake and Calm Pain Level: 0 nausea: No Vomiting: No Complications Anesthesia Complication: No
[2025-03-07] MEDS: Oxytocin 15 Units/NS 250ml 15 UNITS/250 ML IV.SOLN 83 UNITS IV (08:45)
--- NOTE | 2025-03-07 09:51 | NURSING ---
recovery continues in the surgery suite to allow the pt to stay with her baby. the baby will be transferred to [facility].
[2025-03-07] MEDS: Ketorolac 30 MG/ML Syringe IV ×3 (10:09→22:47)
--- NOTE | 2025-03-07 10:44 | FALS_PTH ---
PATIENT: KIKO ANNE LOC: [facility] U#:[id number] AGE/SX: 35/F ROOM: WP002 RE03/06/[address]: Dr. Saritha Hong MD : 1990 BED: 1 DIS: 03/08/2025 SPEC #: [id number] RECD: 03/07/25 11:11 STATUS: DIA FELIPE #: [id number] YESIKA: 03/07/25 10:[address]: Saritha Hong DEPT: SURGICAL PATHOLOGY RECD BY: Oni Velasco ENTERED: 03/07/25 12:09 SP TYPE: FALL TUBES OTHR DR: Jodee Morel CNM No Primary Care Phys Tissues: A - Fallopian tube Procedures: Surgery Specimen Level II HEADER OPERATION: Tubal ligation PRE-OP DIAGNOSIS: Sterilization TISSUE SUBMITTED: A- Fallopian tube - right tube only MICROSCOPIC DIAGNOSIS A. Fallopian tube, right, excision: - No specific pathologic change. - Complete luminal cross-section confirmed. MICROSCOPIC DESCRIPTION Slides are reviewed. GROSS DESCRIPTION A. Received fresh and subsequently placed in formalin, labeled with the patient's name and date of is an 8.7 x 0.7 cm pink-purple to red fimbriated fallopian tube with a <0.1 cm possible paratubal cyst. Mural Painter sections are submitted in 2 cassettes. [place] 03/07/2025 CPT:22145
[2025-03-07 11:10] LABS: Pathology Specimen OB SEE PATHOLOGY REPORT
[2025-03-07] MEDS: Lactated Ringers 1,000 ML 125 ML IV ×2 (12:16→15:01)
--- NOTE | 2025-03-07 12:57 | EX.PCM.OBRPT ---
Assessment & Plan (1) Late deceleration of heart rate: (2) Decreased movements in third trimester: (3) DOROTHY (amniotic fluid index) borderline low: COMMENT: DOROTHY 6 (4) Variable heart rate decelerations, antepartum: COMMENT: steroids given 03/04 02/25 bpp (5) History of loss: COMMENT: maternal hemorrhage, pulmonary hemorrhage s/p MFM consult - believes could have been covid related hemorrhage on recent notes. weekly BPP/dopplers, weekly nsts from 32 on, delivery 37. (wants to if possible) (6) Supervision of high-risk : COMMENT: PRR ANISA [facility]17/[facility] (7) : QUALIFIERS: Weeks of gestation: 33 weeks Qualified Code(s): Z3A.33 - 33 weeks gestation of COMMENT: NIPT low risk, nl anatomy (8) Previous section: COMMENT: if able, may struggle with PTSD in OR. (9) delivery delivered: COMMENT: SM RLTCS right salpingectomy recurrent decels 35 boy Maternal Data Information ANISA Calculator Estimated Delivery Date Method Current WG Current Estimate 04/17/25 Ultrasound #1 34w 1d Final ANISA Source: LMP Operative Report (OB) Details Procedure Type: low transverse Date of Procedure: 03/07/25 Procedure Start Time: 07:40 Procedure Stop Time: 08:30 Pre-Operative Diagnosis: Other Other Pre-Operative diagnosis: see a/p comments Post-Operative Diagnosis: Same as Pre-operative diagnosis Classification: Scheduled Type of Anesthesia: Spinal Special Medications: none Antibiotic Given: Ancef 2 grams IV x1 Drain: Aguila to straight drain Estimated Blood Loss: 500 Fluids Replaced: crystalloid Findings Description of surgery: 35 yo @ 34w1 presents with uterine contractions and was found to have intermittent decelerations decreased movement, borderline DOROTHY, with a history of term demise due to anemia, so it was discussed with the patient and the decision to proceed with delivery was made. Spinal anesthesia was placed without difficulty. Aguila catheter was placed. The patient was placed in the dorsal supine position with leftward tilt. Patient was prepped and draped in the normal sterile fashion. Pfannenstiel skin incision was made with the scalpel and carried through to the underlying layer of fascia with the scalpel. Fascia was nicked in the midline and the incision extended laterally. The rectus bellies were dissected off superiorly and inferiorly with out complication both sharply and bluntly. The peritoneum was entered digitally. The incision was stretched and a low transverse uterine incision was made with the scalpel. minimal fluid came out at delivery and was clear. The 's head was delivered atraumatically followed by the anterior and posterior shoulders without complication the rest of the delivered. The cord was clamped and cut and the was handed off to awaiting nurse. The placenta was delivered spontaneously immediately following and was noted to be intact and have a three-vessel cord with several cotyledons appearing mottled and blue. The uterus was exteriorized cleared of all clots and debris, and the incision was closed in a single layer closure using #1 Monocryl. additional figure of eight suture used. The ovaries and right fallopian tube were noted to be within normal limits. right fallopian tube removed without complication across the mesosalpinx with the ligasure. The uterus was returned to the maternal abdomen and gutters were cleared of all clots and debris. The peritoneum was closed with 3-0 Monocryl in a running fashion. small hematoma seen on the rectus muscle so two figure of eight 3-0 monocryl sutures were placed and hemoblast placed. hemostasis noted. Gloves were changed prior to fascial closure. Fascia was closed with 0 PDS in a running fashion. Subcutaneous tissue was copiously irrigated and the skin was closed with 3-0 Monocryl in a subcuticular fashion. Mepilex dressing was applied without complication. Patient was taken to recovery in stable condition. Surgical findings: vertex Presentation: Vertex Amniotic Membrane Rupture Type: Artificial Amniotic Fluid Description: Clear Specimen collected: Yes Description of specimen(s) removed: placenta and baby Cord Vessel Description: 3 Vessels Delayed Cord Clamping: Yes Contour Stitcher leather stitcher: Yes Professor Of Spanish: Ansley Kessler Tasks completed by first breaker feeder: Opening & closing, Retracting and Other (assisting in delivery of the ) Additional ophthalmology assistant?: No Complications Complications: No Admit VTE Documentation VTE Present on Admission: No VTE Mechan Device Prophylaxis: SCD's Multi Select Codes Urinary/Genital Urinary/Genital CPT Codes: 97162 C/S+TL [place] 47026 Delivery [facility]
[2025-03-07 13:49] LABS: Hematocrit 27.1 % (37-47); Hemoglobin 9.2 g/dL (12.0-15.0); Immature Granulocytes Count 0.060 X10^3/uL (0.0-0.0); Mean Corp Hgb Conc 33.9 g/dL (32-36); Mean Corpuscular Volume 93.4 fL (81-99); Mean Platelet Vol. 11.7 fl (6.2-12.0); NRBC Flagged by Analyzer 0 % (0-5); Platelet Count 223 K/mm3 (150-450); RBC Distribution Width CV 13.1 % (11.6-14.6); RBC Distribution Width SD 44.5 fl (35.1-43.9); Red Blood Count 2.90 M/mm3 (4.2-5.4); White Blood Count 12.7 K/mm3 (4.4-11.0)
--- NOTE | 2025-03-07 14:15 | NURSING ---
IV bolus of 500cc infusing at this time
[2025-03-07] MEDS: Lactated Ringers 500 ML 999 ML IV (15:00)
--- NOTE | 2025-03-07 15:54 | CT_ITS ---
PROCEDURE: CTA ABD/PELVIS W/WO CONTRAST 03/07/2025 REASON FOR EXAM: ABD PAIN, POST C SECTION TECHNIQUE: CTA ABD/PELVIS W/WO CONTRAST Multiplanar Sagittal and Coronal images were obtained. 3D and or MIPS post processing was performed. CONTRAST: Isovue 370 VOLUME: 100 mL One or more dose reduction techniques were used (e.g., Automated exposure control, adjustment of the mA and/or kV according to patient size, use of iterative reconstruction technique). RADIATION DOSE SUMMARY: DLP: 916.28 mGycm COMPARISON: No relevant prior exams available. FINDINGS: Postoperative changes from recent section, with transversely oriented incision across the anterior lower abdominal wall with subcutaneous fat stranding and scattered subcutaneous emphysema. Small amount of residual postoperative pneumoperitoneum, and fluid within the lower abdomen/pelvis. No organized rim enhancing fluid collection/abscess is seen. Enlarged recently gravid uterus. Angiographic and delayed postcontrast sequences demonstrate no evidence for active arterial hemorrhage. No contrast extravasation. Prominence of the endometrium with small amount of presumed postoperative fluid and foci of gas within the uterine cavity. Unremarkable adnexae. Normal abdominal aorta and its major branch vessels. No aneurysm or dissection. Clear lung bases. The liver, spleen, pancreas and gallbladder appear normal. No biliary ductal dilatation. Normal, symmetric renal enhancement. No urolithiasis or hydroureteronephrosis. Unremarkable urinary bladder. No evidence of bowel obstruction or discrete active inflammatory process. Appendix is identified and appears normal without any localized inflammatory changes. Moderate stool and gas throughout the colon. No enlarged abdominopelvic lymph nodes. Visualized osseous structures are unremarkable. CT/CTA Abd/Pelvis W/WO Contrast IMPRESSION: Postoperative changes following recent section, as described. No over tly concerning or unexpected findings. No active arterial hemorrhage/contrast extravasation. Details above. Reading Location: [id number]
[2025-03-07] MEDS: HYDROmorphone 0.5 MG/0.5 ML SYRINGE IV ×2 (16:10→16:40)
[2025-03-07 16:35] LABS: AST(SGOT) 25 U/L (<=31); Alanine Aminotransfer ALT/SGPT 24 U/L (<=34); Albumin, Serum 2.9 g/dL (3.5-5.0); Alkaline Phosphatase 66 U/L (35-104); Anion Gap 11 (5-15); BUN 6 mg/dL (4-19); BUN/Creat Ratio 10.6 RATIO (10-20); Calcium,Total 8.5 mg/dL (7.6-11.0); Carbon Dioxide 22.2 mmol/L (21.0-32.0); Chloride 104 mmol/L (98-108); Estimated Creatinine Clearance 121.91 ml/min (50-250); Globulin 2.1 g/dL (2.2-4.2); Glucose 76 mg/dL (70-99); Hematocrit 25.5 % (37-47); Hemoglobin 8.3 g/dL (12.0-15.0); Immature Granulocytes Count 0.060 X10^3/uL (0.0-0.0); Mean Corp Hgb Conc 32.5 g/dL (32-36); Mean Corpuscular Volume 94.8 fL (81-99); Mean Platelet Vol. 11.8 fl (6.2-12.0); NRBC Flagged by Analyzer 0 % (0-5); Platelet Count 203 K/mm3 (150-450); Potassium 3.7 mmol/L (3.3-5.1); RBC Distribution Width CV 12.9 % (11.6-14.6); RBC Distribution Width SD 44.3 fl (35.1-43.9); Red Blood Count 2.69 M/mm3 (4.2-5.4); White Blood Count 11.0 K/mm3 (4.4-11.0)
--- NOTE | 2025-03-07 16:50 | PCM.PN.BLA ---
Progress Note patient seen for acute abdominal pain on the right side while sitting on the toilet, no increased bleeding, no cp sob n v. abdomen with guarding across lower worse on right, sensitive to even light touch. repeat stat cbc 8.3 which is stable from preop Hg. stat ct ordered.
[2025-03-07 17:48] LABS: Prothrombin Time (Protime)PT. 14.0 SECONDS (11.7-14.9)
[2025-03-07 17:49] LABS: Partial Thromboplast Time 27.5 Seconds (24.1-36.2)
--- NOTE | 2025-03-07 18:20 | HP.PCM.OB_ITS ---
HPI - General General Date of Admission: 03/06/25 HPI Narrative ADDENDUM- patient initially admitted as triage observation and then decision was made to admit and deliver so admission h and p completed. YESSI ANNE, is a 35 F At 34 weeks 1 day presents with labor contractions and of cervical change. She has had decreased movement over the weekend. She has a history of term loss after delivery with her previous . She has had increased testing this with intermittent variable decelerations on her NSTs last week but reassuring BPP's. Upon initial admission she had an 8 out of 8 BPP but intermittent late and variable decelerations seen. DOROTHY went from 9 cm down to 6 cm. Patient has had no weight gain this and has struggled with food intake and malnutrition. She has a significant history of PTSD from her previous delivery and significant anxiety which she is managing with counseling and medication. s/p steroids on 03/04 and Maternal Data Information ANISA Calculator Estimated Delivery Date Method Current WG Current Estimate 04/17/25 Ultrasound #1 34w 1d PFSH PFS Medical History (Updated 03/07/25 @ 13:[address] Saritha Hong MD) delivery delivered Decreased movements in third trimester Threatened Acute bronchitis, unspecified Concentration deficit History of depression PTSD (post-traumatic stress disorder) Wears glasses Wears contact lenses Depression Anxiety Thyroid disease Ectopic Anemia Asthma Non-smoker Abnormal Pap smear of cervix Right foot sprain Right ankle sprain Frequent headaches Cyst of face Sprain of right hand Right wrist sprain SGA (small for gestational age), , affecting care of mother, antepartum Gestational diabetes Asthma Acute wheezy bronchitis Home Medications ?Medication ?Instructions ?Recorded ?Last Taken ?Type hydroxyzine HCl 10 mg tablet 10 mg PO TID PRN anxiety #90 tabs 07/06/24 Unknown Rx ondansetron 4 mg disintegrating 4 mg PO Q6H PRN nausea and 09/08/24 Unknown Rx tablet vomiting #90 tabs bupropion HCl 150 mg tablet,12 hr 150 mg PO BID 90 day s #180 ea 12/07/24 03/04/25 08:00 Rx sustained-release 150 mg blood-glucose sensor (FreeStyle #1 ea 01/06/25 Unknown Rx Wolfgang 2 Plus Sensor device) flash glucose scanning reader #1 ea 01/06/25 Unknown R x (FreeStyle Wolfgang 2 [place]) pen needle, diabetic 31 gauge x #100 ea 01/06/25 Unkno wn Rx 07/24 (Droplet Pen Needle) pyridoxine (vitamin B6) 100 mg 100 mg PO QDAY #14 tabs 01/19/25 03/03/25 21:00 Rx tablet 100 mg blood sugar diagnostic (Blood #120 ea 01/25/25 Unknown Rx Glucose Test strips) blood-glucose meter #1 ea 01/25/25 Unknown Rx lancets 30 gauge (Droplet Lancets) #200 ea 01/25/25 Un known Rx aspirin 81 mg tablet,delayed 81 mg PO DAILY 02/22/25 03/06/25 History release (Adult Low Dose Aspirin) omeprazole magnesium 20 mg 20 mg PO DAILY 03/03/25 21:00 History tablet,delayed release (Prilosec 20 mg OTC) breast pump #1 ea 03/04/25 Unknown Rx Allergy/AdvReac Type Severity Reaction Status Date / Time doxycycline AdvReac Mild Nausea Verified 03/06/25 17:23 Family History Grandmother Breast cancer Lung cancer Father Hypertension Mother Hypertension Thyroid disorder Asthma Grandfather Colon cancer Lung cancer Mother Diabetes Sister Depression Surgical History Previous section H/O unilateral salpingectomy (~02/12/24) H/O laparoscopy History of tonsillectomy Social History household members: spouse and children housing: house current occupational status: employed current occupation: [employer] pets and animals: Yes Smoking Status: Never smoker alcohol intake: never substance use type: does not use what type of physical activity do you participate in: none do you feel safe at home: Yes additional social history: - Rod History 6 Elective abortions Hx Para 2 Spontaneous abortions 1 Hx # Term Pregnancies 2 Ectopic pregnancies 2 Hx # Pregnancies Multiple births # of living children 1 Past Pregnancies Del. Date Name GA/Weeks Outcome Route Bth Weight Gen Labor Lgth Anesthesia Del Locatn Provider FOB Unknown 2017 SAB Unknown 2022 Ectopic Unknown 2023 Ectopic 12/05/19 Gretel 39 live - full term 6lbs 1oz Female 12 hours epidural [facility] Dr. Erendira Velasco 02/25/22 Miguel Angel 37 live - full term Male [facility] Hal Delivery Date: 12/05/19 Last Updated by: Valerie Escoto Gestational diabetes, small for gestational age Delivery Date: 02/25/22 Last Updated by: Jaclyn march [facility] STAT. baby transported to [place] with anemia and passed @ 1812 of pulmonary hemorrhage Visit Details Expected Delivery Route/Plan TOLAC if able patient counseled regarding risks/benefits of trial of labor versus repeat . ACOG/uptodate education given to patient. [] % likelihood of success per calculator TOLAC consent form signed: [] Plans Covid status: [] Flu vaccine: [] Tdap vaccine: [] Rhogam: [] LARC form signed: [] Problem list reviewed and updated with the most current plan of care details and appropriate orders placed. Relevant counseling for the gestational age provided. Continue routine care and follow up unless otherwise noted in visit notes/problem list details OB Flowsheet Initial Weight: 138 lb Date -?-?-?-?-?-?-?-?-?-?-?-?- EGA Weight BP Urine Prot -?-?-?-?-?-?-?-?-?-?-?-?- Glucose FHR FuHt Pres Dilation -?-?-?-?-?-?-?-?-?-?-?-?- Effaced St Visit Note 08/23/24 -?-?-?-?-?-?-?-?-?-?-?-?- 6w 1d 138 lb 2 oz (+2 oz) 102/72 -?-?-?-?-?--?-?-?-?-?-?-?- -?-?-?-?-?-?-?-?-?-?-?-?- SM- GS 18mm and ys seen possible 1 mm early pole 08/30/24 -?-?-?-?-?-?-?-?-?-?-?-?- 7w 1d 138 lb (+0 oz) 100/70 -?-?-?-?-?-?-?-?-?-?-?-?- 130 -?-?-?-?-?-?-?-?-?-?-?-?- SM- no vb crampi ng measuring 6w4d .65cm cons with LMP 09/08/24 -?-?-?-?-?-?-?-?-?-?-?-?- 8w 3d 138 lb (+0 oz) 110/77 Negative -?-?-?-?-?-?-?-?-?-?-?-?- Negative 169 -?-?-?-?-?-?-?-?-?-?-?-?- KW- work in for spotting after vomiting. CRL cons with dates KW- work in for spotting aft er vomiting. CRL cons with dates. reassurance given and zofran given 09/15/24 -?-?-?-?-?-?-?-?-?-?-?-?- 9w 3d 138 lb 2 oz (+2 oz) 111/76 -?-?-?-?-?-?-?-?-?-?-?-?- 150 -?-?--?-?-?-?-?-?-?-?-?-?- SM- some spottin g on and off, possible irregular vascuatiry seen over cervix- recommend MFM consult in the next week or two to evaluate 10/06/24 -?-?-?-?-?--?-?-?-?-?-?-?- 12w 3d 135 lb (-3 lb) 96/69 -?-?-?-?-?-?-?-?-?-?-?-?- 160 -?-?-?-?-?-?-?-?-?-?-?-?- SM- occasional s potting, having vomiting no lof 10/20/24 -?-?-?-?-?-?-?-?-?-?-?-?- 14w 3d 134 lb 4 oz (-3 lb 12 oz) 98/66 Negative -?-?-?-?-?-?-?-?-?-?-?-?- Negative 160 -?-?-?-?-?-?-?-?-?-?-?-?- SM- no vb crampi ng nausea improving 11/09/24 -?-?-?-?-?-?-?-?-?-?-?-?- 17w 2d 132 lb 4 oz (-5 lb 12 oz) 101/67 -?-?-?-?-?-?-?-?-?-?-?-?- 155 -?-?-?-?-?-?-?-?-?-?-?-?- SM- no vb crampi ng still having nausea, plan afp today, US scheduled 12/08/24 -?-?-?-?-?-?-?-?-?-?-?-?- 21w 3d 136 lb (-2 lb) 97/66 Negative -?-?-?-?-?-?-?-?-?-?-?-?- Negative 148 -?-?-?-?-?-?-?-?-?-?-?-?- JV- anatomy scan overall normal but needs to return for repeat views in 4 weeks. Also recommended to have a 32 week and 36 week ultrasound. plan is to deliver at 37 weeks. give steroids week of 36. wants if possible. 01/06/25 -?-?-?-?-?-?-?-?-?-?-?-?- 25w 4d 137 lb 2 oz (-14 oz) 103/64 Negative -?-?-?-?-?-?-?-?-?-?-?-?- Negative 141 -?-?-?-?-?-?-?-?-?-?-?-?- JV- yessi is wor ried about the baby's head size. She also is nervous about the OR and requests IOL (after ) wants to do wolfgang system for monitoring glucose as is nervous about vomiting the glucola 01/17/25 -?-?-?-?-?-?-?-?-?-?-?-?- 27w 1d 134 lb 8 oz (-3 lb 8 oz) 103/73 -?-?-?-?-?-?-?-?-?-?-?-?- 147 26 -?-?-?-?-?-?-?-?-?-?-?-?- JV- Yessi's gluc ose log shows hypogylcemia down to the 50's and she is symptomatic. She is adding protein with her meals. recommend glucose tabs. She is also not gaining weight in despite a regular balanced diet. Labs ordered and will consul MFM. 02/01/25 -?-?-?-?-?-?-?-?-?-?-?-?- 29w 2d 133 lb 8 oz (-4 lb 8 oz) 90/66 -?-?-?-?-?-?-?-?-?-?-?-?- 145 27 -?-?-?-?-?-?-?-?-?-?-?-?- JV- s/p hospital stay at [facility] for hypoglycemia and decels. neither was noted during admission. she was given iv iron transfusion. now has pain and cording of right antecubital area. doppler ordered. lost another pound since last visit. start boost supplements with her meals. sees Dr. Joshi Friday. normal growth on scan at [facility] 02/07/25 -?-?-?-?-?-?-?-?-?-?-?-?- 30w 1d 134 lb 2 oz (-3 lb 14 oz) 99/68 Negative -?-?-?-?-?-?-?-?-?-?-?-?- Negative 140 30 -?-?-?-?-?-?-?-?-?-?-?-?- Sm- per mfm not tracking BS unless symptomatic, trcaking bps as needed per symptoms, watching fluid and protein intake, plan weekly bpp and nst at 32 sees mfm next week. 02/18/25 -?-?-?-?-?-?-?-?-?-?-?-?- 31w 5d 197 lb 2 oz (+59 lb 2 oz) 137 lb 2 oz (-14 oz) 94/64 -?-?-?-?-?-?-?-?-?-?-?-?- 135 31 -?-?-?-?-?-?-?-?-?-?-?-?- SM- no vb lof go od fm no regular ctx 02/22/25 -?-?-?-?-?-?-?-?-?-?-?-?- 32w 2d 137 lb 4 oz (-12 oz) 100/64 Negative -?-?-?-?-?-?-?-?-?-?-?-?- Negative 140 -?-?-?-?-?-?-?-?-?-?-?-?- JV- NSt not reac tive after 40 minutes and after giving an ensure drink. MFM wrote in last note that ac is <1st% and to deliver 38-39 weeks. sending note to clarify as we were under the impression that we would deliver by 37 weeks 03/04/25 -?-?-?-?-?-?-?-?-?-?-?-?- 33w 5d 137 lb (-16 oz) 102/67 -?-?-?-?-?-?-?-?-?-?-?-?- 140 -?-?--?-?-?-?-?-?-?-?-?-?- SM- no vb lof go od fm n reulgar ctx isolated variable plan steroids today and bpp extended monitoring NST FHR Rate Baby A Baseline: 130 Variability:: Moderate Accelerations:: 15 x 15 Decelerations:: Late (intermittent) and Variable (intermittent periodic) NST Reactive:: Yes FHR Category:: Category I (to cat II at times) Uterine Activity:: irritability to irregular ROS Constitutional Constitutional: Reports systems reviewed and no addt'l complaints, except as documented ENT HEENT: Reports systems reviewed and no addt'l complaints, except as documented Cardiovascular Cardiovascular: Reports systems reviewed and no addt'l complaints, except as documented Respiratory/Chest Respiratory/Chest: Reports systems reviewed and no addt'l complaints, except as documented Gastrointestinal Gastrointestinal: Reports systems reviewed and no addt'l complaints, except as documented and nausea; Denies abdominal pain Genitourinary Genitourinary: Reports systems reviewed and no addt'l complaints, except as documented, contractions Details: present and frequency (regular ) and movement Details: present Musculoskeletal Musculoskeletal: Reports systems reviewed and no addt'l complaints, except as documented Integumentary Integumentary: Reports as per HPI Neurologic Neurologic: Reports systems reviewed and no addt'l complaints, except as documented Endocrine Endocrinology: Reports systems reviewed and no addt'l complaints, except as documented Vital Signs Vital Signs Vital Signs: 03/06/25 19:28 03/06/25 19:28 03/06/25 19:28 Temperature Temperature Source Pulse Rate 81 Respiratory Rate Respiratory Depth Respiratory Pattern Blood Pressure 99/56 L Blood Pressure Mean BP Systolic 99 BP Diastolic 56 Blood Pressure Source Blood Pressure Position Blood Pressure Location Baseline BP Pulse Ox 97 Oxygen Delivery Method 03/06/25 19:28 03/06/25 19:28 03/06/25 19:28 Temperature 98.3 F Temperature Source Temporal Pulse Rate Respiratory Rate 16 Respiratory Depth Respiratory Pattern Blood Pressure Blood Pressure Mean BP Systolic BP Diastolic Blood Pressure Source Blood Pressure Position Blood Pressure Location Baseline BP Pulse Ox Oxygen Delivery Method 03/07/25 00:19 03/07/25 00:19 03/07/25 00:19 Temperature Temperature Source Pulse Rate 73 Respiratory Rate Respiratory Depth Respiratory Pattern Blood Pressure 78/41 L Blood Pressure Mean BP Systolic 78 BP Diastolic 41 Blood Pressure Source Blood Pressure Position Blood Pressure Location Baseline BP Pulse Ox 89 Oxygen Delivery Method 03/07/25 00:19 03/07/25 00:19 03/07/25 00:20 Temperature Temperature Source Pulse Rate 72 Respiratory Rate Respiratory Depth Respiratory Pattern Blood Pressure 76/41 L Blood Pressure Mean BP Systolic 76 BP Diastolic 41 Blood Pressure Source Blood Pressure Position Blood Pressure Location Baseline BP Pulse Ox 97 Oxygen Delivery Method 03/07/25 00:20 03/07/25 00:20 03/07/25 00:20 Temperature Temperature Source Temporal Pulse Rate 63 Respiratory Rate 16 Respiratory Depth Respiratory Pattern Blood Pressure Blood Pressure Mean BP Systolic BP Diastolic Blood Pressure Source Blood Pressure Position Blood Pressure Location Baseline BP Pulse Ox Oxygen Delivery Method 03/07/25 00:20 03/07/25 01:58 03/07/25 01:58 Temperature 97.7 F L Temperature Source Pulse Rate 71 Respiratory Rate Respiratory Depth Respiratory Pattern Blood Pressure 98/50 L Blood Pressure Mean BP Systolic 98 BP Diastolic 50 Blood Pressure Source Blood Pressure Position Blood Pressure Location Baseline BP Pulse Ox Oxygen Delivery Method 03/07/25 04:50 03/07/25 04:50 03/07/25 04:54 Temperature 97.8 F Temperature Source Temporal Pulse Rate 64 73 Respiratory Rate 16 Respiratory Depth Respiratory Pattern Blood Pressure 98/56 L Blood Pressure Mean 70 BP Systolic BP Diastolic Blood Pressure Source Monitor Blood Pressure Position Semi-Fowlers Blood Pressure Location Left Arm Baseline BP Pulse Ox 99 100 Oxygen Delivery Method Room Air 03/07/25 04:55 03/07/25 04:55 03/07/25 04:55 Temperature Temperature Source Temporal Pulse Rate 80 Respiratory Rate 16 Respiratory Depth Respiratory Pattern Blood Pressure Blood Pressure Mean BP Systolic BP Diastolic Blood Pressure Source Blood Pressure Position Blood Pressure Location Baseline BP Pulse Ox Oxygen Delivery Method 03/07/25 04:55 03/07/25 04:55 03/07/25 04:56 Temperature 97.8 F Temperature Source Pulse Rate Respiratory Rate Respiratory Depth Respiratory Pattern Blood Pressure 98/56 L Blood Pressure Mean BP Systolic 98 BP Diastolic 56 Blood Pressure Source Blood Pressure Position Blood Pressure Location Baseline BP Pulse Ox 81 Oxygen Delivery Method 03/07/25 04:56 03/07/25 06:47 03/07/25 06:47 Temperature Temperature Source Pulse Rate 72 82 Respiratory Rate Respiratory Depth Respiratory Pattern Blood Pressure 96/50 L Blood Pressure Mean BP Systolic 96 BP Diastolic 50 Blood Pressure Source Blood Pressure Position Blood Pressure Location Baseline BP Pulse Ox Oxygen Delivery Method 03/07/25 06:47 03/07/25 06:52 03/07/25 06:52 Temperature Temperature Source Pulse Rate 64 Respiratory Rate Respiratory Depth Respiratory Pattern Blood Pressure Blood Pressure Mean BP Systolic BP Diastolic Blood Pressure Source Blood Pressure Position Blood Pressure Location Baseline BP Pulse Ox 98 97 Oxygen Delivery Method 03/07/25 06:54 03/07/25 06:54 03/07/25 06:57 Temperature Temperature Source Pulse Rate 64 Respiratory Rate Respiratory Depth Respiratory Pattern Blood Pressure 92/55 L 93/55 L Blood Pressure Mean BP Systolic 92 93 BP Diastolic 55 55 Blood Pressure Source Blood Pressure Position Blood Pressure Location Baseline BP Pulse Ox Oxygen Delivery Method 03/07/25 06:57 03/07/25 06:57 03/07/25 07:02 Temperature Temperature Source Pulse Rate 75 74 Respiratory Rate Respiratory Depth Respiratory Pattern Blood Pressure Blood Pressure Mean BP Systolic BP Diastolic Blood Pressure Source Blood Pressure Position Blood Pressure Location Baseline BP Pulse Ox 97 Oxygen Delivery Method 03/07/25 07:02 03/07/25 07:03 03/07/25 07:03 Temperature Temperature Source Pulse Rate 75 Respiratory Rate Respiratory Depth Respiratory Pattern Blood Pressure 82/44 L Blood Pressure Mean BP Systolic 82 BP Diastolic 44 Blood Pressure Source Blood Pressure Position Blood Pressure Location Baseline BP Pulse Ox 96 Oxygen Delivery Method 03/07/25 07:07 03/07/25 07:07 03/07/25 07:08 Temperature Temperature Source Pulse Rate 76 Respiratory Rate Respiratory Depth Respiratory Pattern Blood Pressure 84/43 L Blood Pressure Mean BP Systolic 84 BP Diastolic 43 Blood Pressure Source Blood Pressure Position Blood Pressure Location Baseline BP Pulse Ox 97 Oxygen Delivery Method 03/07/25 07:08 03/07/25 07:11 03/07/25 07:11 Temperature Temperature Source Pulse Rate 77 108 H Respiratory Rate Respiratory Depth Respiratory Pattern Blood Pressure Blood Pressure Mean BP Systolic BP Diastolic Blood Pressure Source Blood Pressure Position Blood Pressure Location Baseline BP Pulse Ox 82 Oxygen Delivery Method 03/07/25 08:31 03/07/25 09:05 03/07/25 09:05 Temperature 97 F L 97.5 F L Temperature Source Temporal Temporal Pulse Rate 110 H 88 Respiratory Rate 14 18 Respiratory Depth Respiratory Pattern Normal Blood Pressure 146/92 H 106/53 L Blood Pressure Mean 70 BP Systolic BP Diastolic Blood Pressure Source Monitor Blood Pressure Position Semi-Fowlers Blood Pressure Location Left Arm Baseline BP Pulse Ox 99 99 Oxygen Delivery Method Room Air Room Air 03/07/25 09:06 03/07/25 09:06 03/07/25 09:21 Temperature 97.5 F L Temperature Source Temporal Temporal Temporal Pulse Rate 88 Respiratory Rate 16 Respiratory Depth Respiratory Pattern Blood Pressure 106/53 L Blood Pressure Mean 70 BP Systolic BP Diastolic Blood Pressure Source Monitor Blood Pressure Position Semi-Fowlers Blood Pressure Location Left Arm Baseline BP Pulse Ox 99 Oxygen Delivery Method Room Air 03/07/25 09:21 03/07/25 09:34 03/07/25 09:34 Temperature 97.5 F L 97.5 F L Temperature Source Temporal Temporal Temporal Pulse Rate 82 73 Respiratory Rate 16 16 Respiratory Depth Respiratory Pattern Blood Pressure 125/74 H 123/79 H Blood Pressure Mean 91 93 BP Systolic BP Diastolic Blood Pressure Source Monitor Monitor Blood Pressure Position Semi-Fowlers Semi-Fowlers Blood Pressure Location Left Arm Left Arm Baseline BP 98/50 Pulse Ox 100 99 Oxygen Delivery Method Room Air Room Air 03/07/25 09:48 03/07/25 09:48 03/07/25 10:06 Temperature 97.5 F L Temperature Source Temporal Temporal Temporal Pulse Rate 70 Respiratory Rate 16 Respiratory Depth Respiratory Pattern Blood Pressure 114/73 Blood Pressure Mean 86 BP Systolic BP Diastolic Blood Pressure Source Monitor Blood Pressure Position Semi-Fowlers Blood Pressure Location Left Arm Baseline BP 98/50 Pulse Ox 99 Oxygen Delivery Method Room Air 03/07/25 10:06 03/07/25 10:12 03/07/25 10:21 Temperature 97.5 F L Temperature Source Temporal Temporal Temporal Pulse Rate 67 Respiratory Rate 16 Respiratory Depth Respiratory Pattern Blood Pressure 122/67 H Blood Pressure Mean 85 BP Systolic BP Diastolic Blood Pressure Source Monitor Blood Pressure Position Semi-Fowlers Blood Pressure Location Left Arm Baseline BP 98/50 Pulse Ox 100 Oxygen Delivery Method Room Air 03/07/25 10:21 03/07/25 10:36 03/07/25 10:36 Temperature 97.5 F L 97.5 F L Temperature Source Temporal Temporal Temporal Pulse Rate 67 62 Respiratory Rate 16 16 Respiratory Depth Respiratory Pattern Blood Pressure 122/67 H 107/74 Blood Pressure Mean 85 85 BP Systolic BP Diastolic Blood Pressure Source Monitor Blood Pressure Position Semi-Fowlers Semi-Fowlers Blood Pressure Location Left Arm Left Arm Baseline BP 98/50 98/50 Pulse Ox 100 100 Oxygen Delivery Method Room Air Room Air 03/07/25 10:51 03/07/25 10:51 03/07/25 11:00 Temperature 97.5 F L Temperature Source Temporal Temporal Pulse Rate 60 Respiratory Rate 16 Respiratory Depth Respiratory Pattern Blood Pressure 107/74 Blood Pressure Mean 85 BP Systolic BP Diastolic Blood Pressure Source Monitor Blood Pressure Position Semi-Fowlers Blood Pressure Location Left Arm Baseline BP 98/50 98/50 Pulse Ox 100 Oxygen Delivery Method Room Air 03/07/25 11:01 03/07/25 11:01 03/07/25 12:11 Temperature 97.5 F L Temperature Source Temporal Temporal Pulse Rate 61 68 Respiratory Rate 16 16 Respiratory Depth Respiratory Pattern Blood Pressure 107/74 88/47 L Blood Pressure Mean 85 60 BP Systolic BP Diastolic Blood Pressure Source Monitor Monitor Blood Pressure Position Semi-Fowlers Semi-Fowlers Blood Pressure Location Left Arm Left Arm Baseline BP 98/50 Pulse Ox 100 Oxygen Delivery Method Room Air 03/07/25 12:42 03/07/25 13:08 03/07/25 13:08 Temperature 97.3 F L Temperature Source Temporal Temporal Pulse Rate 72 Respiratory Rate 16 16 Respiratory Depth Respiratory Pattern Blood Pressure 81/47 L Blood Pressure Mean 58 BP Systolic BP Diastolic Blood Pressure Source Monitor Blood Pressure Position Sitting Blood Pressure Location Left Arm Baseline BP Pulse Ox 99 100 Oxygen Delivery Method Room Air 03/07/25 14:06 03/07/25 14:06 03/07/25 14:42 Temperature 97.6 F L Temperature Source Temporal Temporal Pulse Rate 56 L Respiratory Rate 16 16 Respiratory Depth Normal Respiratory Pattern Blood Pressure 75/45 L Blood Pressure Mean 55 BP Systolic BP Diastolic Blood Pressure Source Monitor Blood Pressure Position Semi-Fowlers Blood Pressure Location Left Arm Baseline BP Pulse Ox 98 99 Oxygen Delivery Method Room Air Room Air 03/07/25 15:04 03/07/25 15:04 03/07/25 15:37 Temperature 97.1 F L Temperature Source Temporal Temporal Pulse Rate 58 L 71 Respiratory Rate 16 18 Respiratory Depth Respiratory Pattern Blood Pressure 89/50 L 89/63 L Blood Pressure Mean 63 71 BP Systolic BP Diastolic Blood Pressure Source Monitor Monitor Blood Pressure Position Semi-Fowlers Sitting Blood Pressure Location Left Arm Left Arm Baseline BP Pulse Ox 98 100 Oxygen Delivery Method Room Air Room Air 03/07/25 16:42 03/07/25 17:11 03/07/25 17:11 Temperature 97.7 F L Temperature Source Temporal Temporal Pulse Rate 58 L 64 Respiratory Rate 16 16 Respiratory Depth Normal Respiratory Pattern Blood Pressure 86/48 L Blood Pressure Mean 60 BP Systolic BP Diastolic Blood Pressure Source Monitor Blood Pressure Position Semi-Fowlers Blood Pressure Location Left Arm Baseline BP Pulse Ox 98 97 Oxygen Delivery Method Room Air Room Air Weight Weight: 137 lb 4 oz Body Mass Index (BMI) 25.9 Physical Exam Const alert, oriented x3 and healthy appearing Constitutional Narrative: uncomfortable with contractions HEENT normocephalic and moist oral mucous membranes Head and Scalp: atraumatic Neck full ROM, no lymphadenopathy, supple and thyroid normal General: trachea midline Thyroid: thyroid normal Lymph Lymphatic: no lymphadenopathy noted Chest inspection of chest normal Resp normal respiratory effort Cardio regular rate GI soft to palpation and non-tender GI Narrative: gravid Inspection: gravid external exam normal Bimanual Exam - Vag & Uterus: uterus non-tender Manual OB Exam: estimated gestational size appropriate, presentation cephalic, dilated, effaced and station Extremity normal to inspection General Extremity: Negative for edema Skin no rashes or lesions noted Neuro deep tendon reflexes 2+ bilaterally Motor Exam: strength 5/5 throughout and clonus absent Psych mental status grossly normal Labs Labs Labs: Blood Type A POSITIVE Antibody Screen NEGATIVE Hct 25.5 % (37-47) L Hgb 8.3 g/dL (12.0-15.0) L Pap Smear Negative Obstetrics Ultrasound Syphilis Total Ab Nonreactive (Nonreactive) Rubella IgG Antibody REAC (Nonreactive) Hep Bs Antigen Nonreactive (Nonreactive) Hepatitis C Antibody Nonreactive (Nonreactive) Chlamydia DNA (MAE) Negative (Negative) N.gonorrhoeae DNA (MAE) Negative (Negative) HIV 1&2 Antibody Nonreactive (Nonreactive) Glucose 1 Hr 50 gm 145 mg/dL (70-140) H Gest Glucose Tolerance MG/DL Rhogam given: No Miscellaneous Test COMMENT (.) Assessment & Plan (1) DOROTHY (amniotic fluid index) borderline low: COMMENT: DOROTHY 6 (2) Decreased movements in third trimester: (3) Late deceleration of heart rate: (4) delivery delivered: COMMENT: RLTCS right salpingectomy recurrent decels 34 boy (5) Variable heart rate decelerations, antepartum: COMMENT: steroids given 03/04 8/8 bpp (6) Supervision of high-risk : COMMENT: PRR ANISA 04/17/25 boy [facility] Rod (7) History of loss: COMMENT: maternal hemorrhage, pulmonary hemorrhage s/p MFM consult - believes could have been covid related hemorrhage on recent notes. weekly BPP/dopplers, weekly nsts from 32 on, delivery 37. (wants to if possible) (8) : QUALIFIERS: Weeks of gestation: 33 weeks Qualified Code(s): Z3A.33 - 33 weeks gestation of COMMENT: NIPT low risk, nl anatomy (9) Previous section: COMMENT: if able, may struggle with PTSD in OR. PLAN: Plan positin changes, IVF bolus given, serial cbc fibrinogen and anemia noted. initial 8/8 bpp but persistent intermittent decelerations of unclear significa nce noted. after discussion with patient and MFM, decision to proceed with delivery based on heart rate tracing based on physician judgement, and I recommend delivery at this time, appears stable enough to wait until after NPO and fist thing in am at 730 to have most support for resuscitaiton and for maternal comfort/anxiety, if tracing remains stable overnight. s/p steroids.
[2025-03-07] MEDS: Lactated Ringers 1,000 ML 100 ML IV (19:20)
[2025-03-07] MEDS: buPROPion (SR) 150 MG Tablet.SA PO (22:16)
--- NOTE | 2025-03-07 22:25 | NURSING ---
Patient's huerta removed at 1505 per day shift nurse. Patient educated on the importance of voiding 6 hours post huerta catheter removal. Patient refusing to void at this time stating she is in too much pain and understands she is in a pickle. Patient requesting another huerta catheter at this time. RN offered bed carbajal or straight cath and patient refused. RN offered more pain medication at this time. Patient accepted and agreed to trying to stand and walk to restroom with RN help once medication takes effect.
[2025-03-08 00:06] VITALS: BP 89/53; PULSE 63; RESP 16; TEMP 36.1; O2SAT 98
[2025-03-08 04:13] VITALS: BP 93/61; PULSE 81; RESP 16; TEMP 36.1; O2SAT 98
[2025-03-08] MEDS: Lactated Ringers 1,000 ML 100 ML IV (05:03)
[2025-03-08] MEDS: Ketorolac 30 MG/ML Syringe IV (05:04)
[2025-03-08 07:58] LABS: Hematocrit 24.6 % (37-47); Hemoglobin 8.2 g/dL (12.0-15.0); Mean Corp Hgb Conc 33.3 g/dL (32-36); Mean Corpuscular Volume 94.3 fL (81-99); Mean Platelet Vol. 11.9 fl (6.2-12.0); Platelet Count 210 K/mm3 (150-450); RBC Distribution Width CV 13.0 % (11.6-14.6); RBC Distribution Width SD 44.6 fl (35.1-43.9); Red Blood Count 2.61 M/mm3 (4.2-5.4); White Blood Count 7.9 K/mm3 (4.4-11.0)
[2025-03-08 08:43] VITALS: BP 97/65; PULSE 65; RESP 18; TEMP 36.1; O2SAT 100
[2025-03-08] MEDS: buPROPion (SR) 150 MG Tablet.SA PO (10:05)
[2025-03-08] MEDS: Senna/Docusate Sodium 1 Tablet PO (10:05)
--- NOTE | 2025-03-08 11:57 | PN.OBGYN_ITS ---
Subjective Subjective Patient pain control vastly improved, urinary retention seemed to be the cause of pain last night. Tolerating PO. Ambulating without difficulty. pumping. Denies chest pain, shortness of breath, calf pain/swelling, fevers, chills, lightheadedness. some voiding difficulty- will check post void residuals. Objective Data Objective Data Vital Signs: Vital Signs Temp Pulse Resp BP Pulse Ox O2 Del Method 97.0 F L 65 18 97/65 100 Room Air 03/08/25 08:43 03/08/25 08:43 03/08/25 08:43 03/08/25 08:43 03/08/25 08:43 03/08/25 08:43 Oxygen Delivery Method Room Air Weight: 137 lb 4 oz Body Mass Index (BMI) 25.9 Intake & Output: Intake and Output for Last 24 Hours 03/06/25 03/07/25 03/08/25 23:59 23:59 23:59 Intake Total 2970 / 3036.67 3859.33 / 3859.33 981.67 / 981.67 Output Total 2650 / 2650 900 / 900 Balance 2970 / 3036.67 1209.33 / 1209.33 81.67 / 81.67 Lab / Micro Data 03/08/25 07:40 03/07/25 13:54 Labs: Laboratory Results - last 24 hr 03/07/25 13:38: WBC 12.7 H, RBC 2.90 L, Hgb 9.2 L, Hct 27.1 L, MCV 93.4, MCH 31.7, MCHC 33.9, RDW Std Deviation 44.5 H, RDW Coeff of [place] 13.1, Plt Count 223, MPV 11.7, Immature Gran % (Auto) 0.500, Neut % (Auto) 67.2, Lymph % (Auto) 23.3, Esmeralda % (Auto) 8.2, Eos % (Auto) 0.6, Baso % (Auto) 0.2, Absolute Neuts (auto) 8.5 H, Absolute Lymphs (auto) 2.95, Nucleated RBC % 0 03/07/25 13:54: WBC 11.0, RBC 2.69 L, Hgb 8.3 L, Hct 25.5 L, MCV 94.8, MCH 30.9, MCHC 32.5, RDW Std Deviation 44.3 H, RDW Coeff of [place] 12.9, Plt Count 203, MPV 11.8, Immature Gran % (Auto) 0.500, Neut % (Auto) 66.4, Lymph % (Auto) 24.5, Esmeralda % (Auto) 7.9, Eos % (Auto) 0.4, Baso % (Auto) 0.3, Absolute Neuts (auto) 7.3, Absolute Lymphs (auto) 2.68, Nucleated RBC % 0, PT Cancelled, INR Cancelled, APTT Cancelled, Sodium 137, Potassium 3.7, Chloride 104, Carbon Dioxide 22.2, Anion Gap 11, BUN 6, Creatinine 0.55 L, Estim Creat Clear Calc 121.91, Est GFR (MDRD) Non-Af 123, BUN/Creatinine Ratio 10.6, Glucose 76, Calcium 8.5, Total Bilirubin 0.18, AST 25, ALT 24, Alkaline Phosphatase 66, T otal Protein 4.9 L, Albumin 2.9 L, Globulin 2.1 L, Albumin/Globulin Ratio 1.4 03/07/25 17:15: PT 14.0, INR 1.1, APTT 27.5 03/08/25 07:40: WBC 7.9, RBC 2.61 L, Hgb 8.2 L, Hct 24.6 L, MCV 94.3, MCH 31.4, MCHC 33.3, RDW Std Deviation 44.6 H, RDW Coeff of [place] 13.0, Plt Count 210, MPV 11.9 Micro: Microbiology 03/06/25 01:58 Urine, Clean Catch Urine Culture - Final Mixed Gram Positive Organisms Presumptive C albicans Radiography Diagnostic Testing: Radiology Impression Abdomen/Pelvis CTA 03/07/25 15:54 IMPRESSION: Postoperative changes following recent section, as described. No overtly concerning or unexpected findings. No active arterial hemorrhage/contrast extravasation. Details above. Reading Location: [facility] Constitutional Constitutional: Reports systems reviewed and no addt'l complaints, except as documented Cardiovascular Cardiovascular: Reports systems reviewed and no addt'l complaints, except as documented Respiratory/Chest Respiratory/Chest: Reports systems reviewed and no addt'l complaints, except as documented Gastrointestinal Gastrointestinal: Reports systems reviewed and no addt'l complaints, except as documented Physical Exam Const alert, oriented x3 and no apparent distress HEENT Head and Scalp: atraumatic Resp normal respiratory effort Assessment & Plan (1) delivery delivered: COMMENT: SM RLTCS right salpingectomy recurrent decels 35 boy christopher PLAN: Plan s/p LTCS PPD # 1 1. routine post care 2. pumping 3. rh positive 4. rubella immune
--- NOTE | 2025-03-08 12:00 | PCM.DC ---
Discharge Instructions DC O2, CPAP, BIPAP needs Home O2 Discharge instructions: No Dressing / Incision Discharge Activity: May Not Drive (for 2 weeks or while taking narcotic pain medications.), May Shower and May Take a Tub Bath (in 7 days) May shower in (days): 0 May resume sexual activity in: 4-6 weeks Weight Bearing Status: Full weight bearing Lifting Restrictions: 20 pounds Dressing / Incision Call your doctor if your incision/area has: Continuous Slow Oozing, Sudden Increased Bleeding, Increased Pain/ Swelling, Increased Redness and Foul Smelling Discharge Call your doctor if you observe: Fever of 101 or Higher and Using more than 1 pad per hour (for 2 hours) Suture Line Care: Avoid Pulling/Pushing and Avoid Pinching/Bending Cleanse incision/area with: Soap & Water and Keep Dressing Clean & Dry Follow Up Care Please Follow Up With: Saritha Hong MD When: Call [phone] to make an appointment for an incision check in 1-2 weeks. Test Results: Test results from this visit will be discussed in further detail at your follow-up appointment, if applicable. Discharge Plan Admission Admit Date/Time: 03/06/25 16:50 Attending Provider: Saritha Hong Primary Care Provider: Care Physician,No Primary Instructions Patient Instructions: Kick Counts, ED False Labor, OB Triage: Return to Hospital or Notify Physician if you Experience: Discharge Orders/Prescriptions Prescriptions: No Action hydroxyzine HCl 10 mg tablet 10 mg PO TID PRN (Reason: anxiety) Qty: 90 1RF ondansetron 4 mg tablet,disintegrating 4 mg PO Q6H PRN (Reason: nausea and vomiting) Qty: 90 4RF bupropion HCl 150 mg tablet sustained-release 12 hr 150 mg PO BID 90 Days Qty: 180 1RF (DME) FreeStyle Wolfgang 2 Plus Sensor Device See Rx Instructions .Route Qty: 1 0RF Rx Instructions: As directed (DME) pen needle, diabetic [Droplet Pen Needle] 31 gauge x 1/4 needle See Rx Instructions .ROUTE .MEDSUPPLY Qty: 100 0RF Rx Instructions: As directed (DME) FreeStyle Wolfgang 2 [place] Misc See Rx Instructions .ROUTE .MEDSUPPLY Qty: 1 0RF Rx Instructions: As directed aspirin [Adult Low Dose Aspirin] 81 mg tablet,delayed release (DR/EC) 81 mg PO DAILY omeprazole magnesium [Prilosec OTC] 20 mg tablet,delayed release (DR/EC) 20 mg PO DAILY pyridoxine (vitamin B6) 100 mg tablet 100 mg PO QDAY Qty: 14 0RF (DME) lancets [Droplet Lancets] 30 gauge misc See Rx Instructions .ROUTE .MEDSUPPLY Qty: 200 2RF Rx Instructions: Check blood sugars fasting and 2 hours after breakfast, lunch, and supper. (DME) blood-glucose meter Misc See Rx Instructions .ROUTE .MEDSUPPLY Qty: 1 0RF Rx Instructions: As directed (DME) Blood Glucose Test Strip See Rx Instructions .ROUTE .MEDSUPPLY Qty: 120 6RF Rx Instructions: Check blood sugars Fasting and 2 hours after breakfast, lunch, and dinner. (DME) breast pump Device See Rx Instructions .Route Qty: 1 0RF Rx Instructions: Spectra S1 Breast Pump & supplies use As directed Referrals / Follow Up: Care Physician,No Primary [Primary Care Provider] -
[2025-03-08] MEDS: Iron Sucrose Complex (Venofer) 200 MG in 0.9% NaCl 100 ML 220 MG IV (12:13)
[2025-03-08 12:30] VITALS: BP 103/72; PULSE 86; RESP 16; TEMP 36.4; O2SAT 99
[2025-03-08 16:00] VITALS: BP 108/65; PULSE 85; RESP 16; TEMP 36.6; O2SAT 97
--- NOTE | 2025-03-10 12:35 | CASEMGMT ---
Social Work Assessment Labor and Delivery Unit Patient Address: [address] [place] [address] Phone number: [phone] Date of Referral: 03/08/25 Time of Referral:? 1353 Referred By: Dr. Hong Date of Intervention: ??03/09/25 Time of Intervention:? 1240 Reason for Referral:? hx loss and hx anxiety and depression, this baby transferred to [facility] NICU Sw completed chart review and acknowledges social work consult. Sw presented to bedside and introduced self to mother of baby (ELVIRA Dickson). Also present was maternal grandpa, MOB states that it is okay to continue assessment with her father present. Sw explained reason for sw involvement and completed psychosocial assessment. History obtained from: medical records, MOB Household composition: Currently residing in the family home is MERCEDEZ, father of baby (PABLO Velasco) and their 5 year old daughter, Gretel. MOB states that their home is safe and secure, stating she is ready for baby. Patient's parent/guardian status:? MERCEDEZ states that she and LYNDA have been together for 16 years, for 12 after meeting while MERCEDEZ was working at [employer]. MOB denies any problems or concerns with domestic violence or intimate partner violence. [place] baby is third, but second living baby for parents together. ? Medical History: ?MERCEDEZ is 35 year old female who is 5, para 2- now 3 following labor and delivery of . MERCEDEZ has history of demise in 2021. MERCEDEZ reports that following that delivery she was under the impression that she would not be able to have any more babies. MERCEDEZ states that she and LYNDA had just come to accept that they would remain a family of three, and then two months later she discovered that she was . MERCEDEZ states that although she was extremely excited, the positive test also brought her a lot of anxiety provided their history. MERCEDEZ received routine care during with [place] beginning in first trimester. MERCEDEZ presented to unit following decreased movement and decision made to proceed with repeat . Baby boy, named Ranjan Bond, was born weighing 7lb 2oz with apgars of 7 and 8 at one and five minutes of life, respectfully. - Following delivery baby required transfer to [facility] NICU due to respiratory failure requiring CPAP. No discharge identified at this time. Educational Status:? Both parents graduated from high school and MOB obtained her Bachelor's degree. No problems with reading, learning or comprehension. Financial Status: Both parents are gainfully employed outside of the home. LYNDA works at [employer] and then also helps primarily at home with the their daughter when MERCEDEZ is at work. 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 Supplies:?? All necessary baby supplies obtained, including: car seat, safe sleep space, clothes, diapers and wipes. Childcare/Caregiver(s):? MOB states that when both parents have returned to work paternal grandparents will help provide assistance with transportation. Transportation:?? Both parents have their drivers license and reliable means of transportation, no barriers. Programs/Agencies Involved: ???Parents are not connected to any programs that provide them with financial assistance as they are over income. Children Services/Legal Issues:??? No history of children services involvement, no issues or concerns warranting referral to be made at this time. Behavioral Health Issues: ??Mental Health History:??MERCEDEZ states that LYNDA does not have any mental health. MOB states that she has been diagnosed with PTSD, anxiety, depression and depression. MOB states that she is prescribed medication to help her manage her mental health (Wellbutrin and hydroxyzine). MOB states that due to her needing to delivery baby early and baby needing to be transferred to [facility] NICU she is experiencing some anxiety and fear due to the unknown and ptsd due to her former loss. MERCEDEZ talked openly about how she has been doing since delivering baby. MOB states that now that she knows baby is stable and is doing better since delivery she is feeling less anxious, and is eager to be discharged so that she can be at the hospital with him. Substance Use History:?MOB denies substance use prior to and during . ? Family History:??MOB denies family history of substance use or significant mental health history. ??? Drug Screens: ??No drug screens observed while completing chart review. Family/Social Stressors:? MOB and sw discussed current stressors and mental health concerns. MOB states that she felt a heightened sense of anxiety throughout the majority of her . MOB states that now that baby is here and has been transferred to [facility] she is struggling with the unknown regarding his medical needs and anticipation of how long he will need to be admitted. Support Systems: MERCEDEZ reports that both sets of grandparents are supportive. Depression/Shaken Baby/Safe Sleeping:? Sw and MOB discussed at length regarding her mental health history and likelihood of experiencing baby blues and/or depression/ anxiety. MOB states that she is on medication to help her manage her mental health symptoms and is also in therapy. MOB states that FOB is one of her biggest supports and he knows how to help and support her. MERCEDEZ reports that she goes to [facility] for counseling services. MOB states that she did not struggle with any symptoms following the delivery of her daughter, however she did significantly, along with grief following the delivery and loss of her son/ second baby. MOB was appropriately tearful throughout conversation and stated that she anticipated experiencing symptoms during this period. MOB states that she has future appointments scheduled with her therapist. At this time, MOB states that overall she is doing okay, given all that she has gone through. MOB states that she is ready to be discharged and eager to be with baby. Sw educated MOB on shaken baby prevention and ABCs of safe sleep, MOB expressed understanding. ASSESSMENT:? MOB admitted following labor and delivery of . Baby required transfer to [facility] NICU at [facility] due to prematurity and respiratory distress requiring CPAP. MOB was welcoming of sw and engaging in completion of assessment. MOB quiet but answered questions. MOB appropriately tearful throughout conversation. MOB states that she and FOB are strong supports to one another. MOB states that she has struggled with her mental health in the past, and is anticipating experiencing anxiety/ depression at some point during this period. MERCEDEZ states that she has been proactive regarding getting connected to supports and has a counselor that she meets with regularly and is prescribed medications to help her manage her symptoms. MOB is to be discharged today and will be presenting to NICU to be with baby. NO discharge identified for baby at this time. PLAN:? No other services requested or indicated. MOB and baby to be discharged when medically ready. Parents were provided literature regarding: signs and symptoms of baby blues and mood and anxiety disorders, Help Me Grow, shaken baby prevention, ABCs of safe sleep and a list of county resources that are available for them should any needs present themselves. Daniele Mora, HAND WOOD SANDER, ANIMAL SHELTER CLERK
== END 2025-03-08 18:00 | disposition home or self-care (01) | DRG 783 ==
LOC: WPOUT 10:48 → WP 11:42
PROVIDERS: Admitting Provider Obstetrics & Gynecology; Referring Provider Registered Nurse; Visit Provider Obstetrics & Gynecology
DX: O76 Abnormality in fetal heart rate and rhythm complicating labor and delivery (principal); O60.14X0 Preterm labor third trimester with preterm delivery third trimester, not applicable or unspecified; F43.11 Post-traumatic stress disorder, acute; F41.9 Anxiety disorder, unspecified; O34.211 Maternal care for low transverse scar from previous cesarean delivery; O41.8X30 Other specified disorders of amniotic fluid and membranes, third trimester, not applicable or unspecified; O99.344 Other mental disorders complicating childbirth; Z37.0 Single live birth; O36.8130 Decreased fetal movements, third trimester, not applicable or unspecified; O26.23 Pregnancy care for patient with recurrent pregnancy loss, third trimester; O26.13 Low weight gain in pregnancy, third trimester; O36.5130 Maternal care for known or suspected placental insufficiency, third trimester, not applicable or unspecified; Z3A.34 34 weeks gestation of pregnancy; Z79.82 Long term (current) use of aspirin; Z79.899 Other long term (current) drug therapy; Z86.32 Personal history of gestational diabetes; Z87.59 Personal history of other complications of pregnancy, childbirth and the puerperium
CPT/HCPCS: 59025; 59050; 74174; 76819; 80053; 81002; 84112; 85025; 85027; 85384; 85610; 85730; 86850; 86900; 86901; 87086; 87088; 88302; 99221; J1756; Q9967; A4216; G0378; J2405